=== PATIENT | female | born 1940 | race Caucasian/White ===

== ENCOUNTER 2016-12-01 01:10 | Emergency (ER) | payer MEDICARE, OTHER ==
[~2016-12-01] VITALS: Ht 165.1 cm; Wt 54.4 kg
[~2016-12-01 01:10] MED LIST: METOPROLOL TART25 MG ORAL; RESTORIL30 MG ORAL; UNOBMED
[2016-12-01 01:30] VITALS: BP 130/87
[2016-12-01 02:40] VITALS: BP 35/81
[2016-12-01 02:45] VITALS: BP 131/77
--- NOTE | 2016-12-01 03:31 | Emergency Room Report ---
History of Present Illness General Chief Complaint: Malfunctioning Gastric Tube Source: Patient, Family Member Present Illness HPI 76-year-old female presents to ED for evaluation. Family members at bedside and states that patient's G-tube is not achieving. Noticed that tonight when she started a G-tube feeding it would not flush. However patient showing no signs of distress. No fevers or chills. No pain. No nausea or vomiting. Patient has dementia and is unable to provide any additional history at this time. No aggravating relieving factors. Denies any other associated symptoms Allergies: Coded Allergies: No Known Allergies (Verified , 08/14/06) Patient History Past Medical History: HTN, CVA/TIA Past Surgical History: none Pertinent Family History: none Social History: Denies: alcohol use, drug use, smoking Now: No Immunizations: UTD Reviewed Nursing Documentation: PMH: Agreed, PSxH: Agreed Nursing Documentation-PMH Hx Cardiac Problems: Yes Hx Hypertension: Yes Hx Diabetes: Yes Hx Cancer: Yes - breast Hx Gastrointestinal Problems: Yes Hx Neurological Problems: Yes - Parkinsons Hx Cerebrovascular Accident: Yes - left side paralysis Hx Parkinson's Disease: Yes Hx Seizures: Yes Review of Systems All Other Systems: negative except mentioned in HPI Physical Exam Vital Signs Date Time Temp Pulse Resp B/P Pulse Ox O2 Delivery O2 Flow Rate FiO2 12/01/ 01:20 97.5 73 16 130/87 95 Room Air Sp02 EP Interpretation: reviewed, normal General Appearance: no apparent distress, alert, GCS 15, non-toxic Head: normocephalic Eyes: bilateral eye PERRL, bilateral eye normal inspection ENT: normal ENT inspection Neck: normal inspection Respiratory: normal inspection Cardiovascular #1: normal inspection Gastrointestinal: normal bowel sounds, non tender, soft, non-distended, no guarding, no rebound, other - Gtube site C/D/I Rectal: deferred Genitourinary: no CVA tenderness Musculoskeletal: normal inspection Neurologic: other - dementia Psychiatric: other - dementia Skin: normal inspection Lymphatic: normal inspection Procedures Additional Procedure Procedure Narrative G-tube placement Patient placed on stretcher. Old G-tube is removed by deflating the balloon using syringe. G-tube site is inspected with no contraindications to G-tube placement. G-tube slowly inserted until resistance is met; G-tube balloon is slowly filled with 20 mL of normal saline and slowly retracted back until resistance is met. G-tube placement is confirmed with KUB study using Gastrografin Medical Decision Making Diagnostic Impression: Primary Impression: Malfunction of gastrostomy tube ER Course Hospital Course 76-year-old female presents to ED for G-tube placement. unable to flush at home Clinical course Patient placed on stretcher. After initial history and physical I replaced G- tube and inflate the balloon. G-tube placement confirmed with KUB study. Patient remained stable without any signs of distress. family at bedside and will take patient home Diagnosis - malfunction of G tube stable and discharged back to facility. Followup with PMD. Return to ED if symptoms recur or worsen Other X-Ray Diagnostic Results Other X-Ray Diagnostic Results : X-Ray Ordered: KUB EP Interpretation: Yes Findings: no fractures, no dislocation, no soft tissue swelling, other - gtube in place. no extravasation Number of Views: 1 Last Vital Signs Date Time Temp Pulse Resp B/P Pulse Ox O2 Delivery O2 Flow Rate FiO2 12/01/16 02:45 97.5 77 16 131/77 95 Room Air Status: improved Disposition: HOME, SELF-CARE Condition: Stable Referrals: NON PHYSICIAN (PCP) Patient Instructions: Gastrostomy Tube Home Guide, Adult GABRIELLE HALLMAN M.D. Dec 01, 2016 03:31
--- NOTE | 2016-12-01 13:28 | Diagnostic Imaging Report ---
Indication: Tube placement Comparison: None Single view of the abdomen obtained Gastrostomy balloon is in the body of the stomach. There is contrast in the fundus. No definite leak identified. IVC filter incidentally noted. Impression: Gastrostomy in good position. No leak identified.
== END 2016-12-01 02:46 | disposition home or self-care (01) ==
LOC: EMR 01:40
DX: K94.23 Gastrostomy malfunction (principal); Y83.3 Surgical operation with formation of external stoma as the cause of abnormal reaction of the patient, or of later complication, without mention of misadventure at the time of the procedure; Y92.9 Unspecified place or not applicable; I10 Essential (primary) hypertension; E11.9 Type 2 diabetes mellitus without complications; G20 Parkinson's disease; I69.354 Hemiplegia and hemiparesis following cerebral infarction affecting left non-dominant side
CPT/HCPCS: 43760; 74000

== ENCOUNTER 2017-03-08 22:33 | Inpatient (IN) | payer MEDICARE, OTHER ==
[~2017-03-08] VITALS: Ht 167.6 cm; Wt 63.8 kg
[2017-03-08] MEDS ORDERED: Acetaminophen 650 MG SUPP RECTAL ONE ×2 (22:39→22:41)
[2017-03-08 22:40] VITALS: BP 167/59
--- NOTE | 2017-03-08 22:42 | Emergency Room Report ---
History of Present Illness General Chief Complaint: Fever Source: Family Member Present Illness HPI Is a 77-year-old female with multiple medical problem. She has a previous stroke and his bedbound. She has previous tracheostomy and now has a feeding tube. Brought in by family member with him and secondary to fever and congestion. Onset for last day. Fever is high. No nausea no vomiting. Coughing is nonproductive in nature. No diarrhea. Allergies: Coded Allergies: No Known Allergies (Verified , 08/14/06) Patient History Past Medical History: see triage record, old chart reviewed Past Surgical History: other Pertinent Family History: none Social History: Denies: smoking Last Menstrual Period: n/a Now: No Immunizations: other Reviewed Nursing Documentation: PMH: Agreed, PSxH: Agreed Nursing Documentation-PMH Hx Cardiac Problems: Yes Hx Hypertension: Yes Hx Diabetes: Yes Hx Cancer: Yes - breast Hx Neurological Problems: Yes - Parkinsons Hx Cerebrovascular Accident: Yes Hx Parkinson's Disease: Yes Hx Seizures: Yes Review of Systems Constitutional: Reports: fever Eye: Denies: blurred vision, eye pain ENT: Denies: ear pain, nose congestion, throat swelling Respiratory: Reports: cough, shortness of breath Cardiovascular: Denies: chest pain, palpitations Gastrointestinal: Denies: abdominal pain, diarrhea, nausea, vomiting Musculoskeletal: Denies: back pain, joint pain Skin: Denies: rash Neurological: Denies: headache, numbness Endocrine: Denies: increased thirst, increased urine Hematologic/Lymphatic: Denies: easy bruising All Other Systems: negative except mentioned in HPI Physical Exam Vital Signs Date Time Temp Pulse Resp B/P Pulse Ox O2 Delivery O2 Flow Rate FiO2 03/08/17 22:23 102.0 87 16 139/72 94 vitals with fever Sp02 EP Interpretation: reviewed, normal General Appearance: mild distress, lethargic, Chronically Ill Head: normocephalic, atraumatic Eyes: bilateral eye EOMI, bilateral eye PERRL ENT: hearing grossly normal, normal pharynx Neck: no meningismus, other - Contracted Respiratory: chest non-tender, accessory muscle use, crackles, rhonchi Cardiovascular #1: regular rate, rhythm, no murmur Gastrointestinal: normal bowel sounds, non tender, no mass, no organomegaly, no bruit, non-distended Musculoskeletal: back normal, other - Contracted Skin: warm/dry Medical Decision Making Diagnostic Impression: Primary Impression: Sepsis Qualified Codes: A41.9 - Sepsis, unspecified organism Additional Impressions: Aspiration pneumonia Qualified Codes: J69.0 - Pneumonitis due to inhalation of food and vomit Prerenal azotemia Proteinuria Qualified Codes: R80.9 - Proteinuria, unspecified ER Course Patient presents with fever and congestion. She has a pneumonia in the right lower lobe. Is concerned for aspiration. Wide spectrum antibiotic started. Stable. No evidence of ACS, PE, dissection to name a few. Her family asked that patient be admitted to Dr. Renner because he has taken care of her at [facility]. Dr. Toro, who is covering, agreed with the admission. Lab Results Impression labs unremarkable EKG Diagnostic Results Rate: normal Rhythm: NSR ST Segments: other - Baseline tremors Rhythm Strip Diag. Results EP Interpretation: yes Rate: 100 Rhythm: NSR, no PVC's, no ectopy Chest X-Ray Diagnostic Results EP Interpretation: Yes Findings: no effusion, no pneumothorax, other - rll interstitial infiltrate Number of Views: 1 Last Vital Signs Date Time Temp Pulse Resp B/P Pulse Ox O2 Delivery O2 Flow Rate FiO2 03/08/17 22:23 102.0 87 16 139/72 94 Status: improved Disposition: ADMITTED INPATIENT Condition: Serious CARLOS NEAL M.D. March 08, 2017 22:42
[2017-03-08] MEDS ORDERED: NS 1000ml 1,600 ML IVLG ONE (22:45)
[2017-03-08] MEDS ORDERED: Albuterol ud Inhalation HHN ONE (22:45)
[2017-03-08] MEDS ORDERED: Acetaminophen 500mg (ES) tab ORAL ONE (22:45)
[2017-03-08 22:50] LABS: BASOPHILS % (AUTO) 0.6 % (0.0-2.0); EOSINOPHILS % (AUTO) 0.3 % (0.0-3.0); LYMPHOCYTES % (AUTO) 13.5 % (20.0-45.0); MEAN CORPUSCULAR HEMOGLOBIN 32.5 PG (27.0-31.0); MEAN CORPUSCULAR HGB CONC 35.4 G/DL (32.0-36.0); MEAN CORPUSCULAR VOLUME 92 FL (80-99); MEAN PLATELET VOLUME 7.5 FL (6.5-10.1); MONOCYTES % (AUTO) 7.9 % (1.0-10.0); NEUTROPHILS % (AUTO) 77.6 % (45.0-75.0); PLATELET COUNT 127 K/UL (150-450); RED BLOOD COUNT 4.06 M/UL (4.20-5.40); RED CELL DISTRIBUTION WIDTH 12.9 % (11.6-14.8)
[2017-03-08 23:05] LABS: ALANINE AMINOTRANSFERASE 13 U/L (3-33); ALBUMIN/GLOBULIN RATIO 0.9 (1.0-2.7); ANION GAP 16 (5-15); ASPARTATE AMINO TRANSFERASE 22 U/L (5-40); CALCIUM 9.7 mg/dL (8.6-10.2); CARBON DIOXIDE 28 mEQ/L (20-30); CHLORIDE 93 mEQ/L (98-107); CREATININE 1.1 mg/dL (0.5-0.9); HEMOLYSIS 48; SODIUM 137 mEQ/L (135-145); TOTAL PROTEIN 7.9 g/dL (6.6-8.7); TROPONIN I < 0.30 ng/mL (<=0.30)
[2017-03-08 23:35] LABS: APPEARANCE,URINE CLEAR; KETONES,URINE 1+ (NEGATIVE); LEUKOCYTE ESTERASE ,URINE 1+ (NEGATIVE); NITRITE,URINE NEGATIVE (NEGATIVE); PH,URINE 6.5 (4.5-8.0); PROTEIN,URINE 1+ (NEGATIVE); UROBILINOGEN,URINE NORMAL MG/DL (0.0-1.0)
[2017-03-08 23:44] LABS: SQUAMOUS EPITHELIAL CELL,UR FEW /LPF (NONE/OCC)
[2017-03-09] VITALS (11 sets, daily range): BP systolic 84–154; BP diastolic 42–71
[2017-03-09] MEDS ORDERED: Zosyn 4.5gm inj ONE (00:11)
[2017-03-09] MEDS ORDERED: Piperacillin/Tazobactam 4.5 GM in NS 110 ML IVPB ONE (00:15)
[2017-03-09] MEDS ORDERED: Albuterol ud Inhalation HHN ONE (00:15)
[2017-03-09] MEDS ORDERED: JANUVIA25 MG GT (00:40)
[2017-03-09] MEDS ORDERED: TEMAZEPAM30 MG GT (04:28)
[2017-03-09] MEDS ORDERED: NEXIUM40 MG GT (04:28)
[2017-03-09] MEDS ORDERED: Metoprolol Tartrate GT (04:28)
[2017-03-09] MEDS ORDERED: ALBUTEROL2.5 MG/3 M INH (04:28)
[2017-03-09] MEDS ORDERED: Miralax 17gm pkt ORAL PRN (07:30)
[2017-03-09] MEDS ORDERED: Milk of Magnesia 30ml Ud ORAL PRN (07:30)
[2017-03-09] MEDS ORDERED: Milk of Magnesia 30ml Ud GT PRN (07:48)
[2017-03-09] MEDS ORDERED: Miralax 17gm pkt GT PRN (07:48)
[2017-03-09] MEDS ORDERED: Acetaminophen 650mg/20.3ml ORAL PRN (07:49)
[2017-03-09] MEDS ORDERED: Acetaminophen 650mg/20.3ml GT PRN ×2 (07:49→11:49)
[2017-03-09] MEDS: metroNIDAZOLE 500mg 100 ML IVPB SCH ×3 (09:29→22:25)
[2017-03-09] MEDS: Metoprolol Tartrate 12.5mg TAB GT SCH ×2 (09:31→20:59)
[2017-03-09] MEDS: Docusate 100mg/10ml Liq GT SCH ×2 (09:31→20:58)
[2017-03-09] MEDS: Heparin 5000 units/ml inj SUBQ SCH ×2 (09:31→20:59)
[2017-03-09] MEDS: sitaGLIPtin 25mg tab GT SCH (09:44)
--- NOTE | 2017-03-09 10:21 | Diagnostic Imaging Report ---
Indication: Dyspnea Comparison: 01/26/16 A single view chest radiograph was obtained. Findings: Interstitial and vascular prominence noted. Mild cardiomegaly is present. Bones are osteopenic. Impression: Possible mild interstitial edema. Please correlate clinically
[2017-03-09] MEDS: DuoNeb 0.5-3(2.5)mg/3ml neb INH PRN (11:25)
[2017-03-09] MEDS: NovoLOG Insulin Flexpen SUBQ SCH ×4 (12:31→23:31)
[2017-03-09] MEDS ORDERED: Tubing IV Secondary IV ONE (13:27)
--- NOTE | 2017-03-09 16:08 | History & Physical ---
History and Physical History & Physicial Dictated for Int Med-Dr Toro no. [id number]. SURI CLINTON March 09, 2017 16:08
--- NOTE | 2017-03-09 16:59 | Consultation ---
History of Present Illness General Date patient seen: March 09, 2017 Chief Complaint: Fever Referring physician: Dr. Toro Reason for Consultation: dyspnea Present Illness HPI 77-year-old female with multiple medical history of stroke, tracheostomy and feeding tube brought in by family member with CC of fever and congestion for last day. No nausea no vomiting. Coughing is nonproductive in nature. No diarrhea. Pt can't give any history and all information is obtained form the chart. Allergies: Coded Allergies: No Known Allergies (Verified , 08/14/06) Medication History Scheduled Albuterol Sulfate* (Albuterol Sulfate Hhn*), 3 ML INH DAILY, (Reported) Esomeprazole Magnesium (Nexium), 40 MG GT DAILY, (Reported) Sitagliptin* (Januvia*), 25 MG GT DAILY, (Reported) [Metoprolol Tartrate*], 12.5 MG GT DAILY, (Reported) Scheduled PRN Temazepam* (Temazepam*), 30 MG GT BEDTIME PRN for Insomnia, (Reported) Discontinued Medications Metoprolol Tartrate* (Metoprolol Tartrate*), Unknown Dose ORAL EVERY 12 HOURS, ( Reported) Discontinued Reason: Prescription changed Unable to Obtain Medications (Unable To Obtain Meds), (Reported) Discontinued Reason: Therapy completed Patient History Healthcare decision maker Emily Blank Resuscitation status Full Code Advanced Directive on File Yes Past Medical/Surgical History Past Medical/Surgical History: (1) Hemiparesis affecting left side as late effect of cerebrovascular accident (2) Feeding by G-tube (3) Diabetes (4) Cerebral vascular disease (5) Metastatic malignant neoplasm to breast Review of Systems All Other Systems: negative except mentioned in HPI Physical Exam General Appearance: cachetic Lines, tubes and drains: peripheral HEENT: normocephalic, atraumatic Neck: non-tender, normal alignment Respiratory/Chest: chest wall non-tender, rhonchi - left, rhonchi - right Cardiovascular/Chest: normal peripheral pulses, normal rate Abdomen: normal bowel sounds Genitourinary/Rectal: normal genital exam, heme negative stool Extremities: normal range of motion, non-tender Skin Exam: normal pigmentation 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 Last 24 Hour Vital Signs Date Time Temp Pulse Resp B/P Pulse Ox O2 Delivery O2 Flow Rate FiO2 03/09/17 16:14 80 18 112/54 95 Nasal Cannula 2.0 03/09/17 15:58 98.4 75 18 84/48 94 Nasal Cannula 2.0 03/09/17 12:00 78 03/09/17 12:00 97.9 81 20 97/42 95 Nasal Cannula 2.0 03/09/17 11:29 95 22 Nasal Cannula 2.0 28 03/09/17 11:20 88 22 95 Nasal Cannula 2.0 28 03/09/17 09:57 Nasal Cannula 2.0 28 03/09/17 09:56 95 Nasal Cannula 2.0 28 03/09/17 09:54 88 22 Nasal Cannula 2.0 28 03/09/17 09:31 90 100/43 03/09/17 08:00 83 03/09/17 08:00 98.6 90 20 100/43 95 Nasal Cannula 2.0 03/09/17 04:00 100.3 56 20 122/66 99 Nasal Cannula 3.0 03/09/17 04:00 102 03/09/17 03:20 100 03/09/17 03:05 101.8 101 27 113/49 100 Nasal Cannula 2.0 03/09/17 03:00 100.0 78 20 110/49 99 Nasal Cannula 3.0 03/09/17 02:45 101.8 101 27 113/49 100 Nasal Cannula 2.0 03/09/17 01:00 101.6 108 19 109/55 99 Nasal Cannula 4.0 03/09/17 00:18 36 03/09/17 00:17 95 22 95 Nasal Cannula 4.0 36 03/09/17 00:00 115 22 134/65 100 Nasal Cannula 2.0 03/08/17 22:57 28 03/08/17 22:54 112 26 Nasal Cannula 2.0 28 03/08/17 22:54 112 26 100 Nasal Cannula 2.0 28 03/08/17 22:44 103.2 03/08/17 22:40 103.2 132 34 167/59 99 Nasal Cannula 2.0 03/08/17 22:23 102.0 87 16 139/72 94 Intake and Output 03/08/17 03/09/17 19:00 07:00 Intake Total 1850 ml Output Total 1200 ml Balance 650 ml Intake IV Total 1850 ml Output Urine Total 1200 ml Laboratory Tests Test 03/08/17 22:30 03/08/17 23:10 White Blood Count 10.0 K/UL (4.8-10.8) Red Blood Count 4.06 M/UL (4.20-5.40) L Hemoglobin 13.2 G/DL (12.0-16.0) Hematocrit 37.2 % (37.0-47.0) Mean Corpuscular Volume 92 FL (80-99) Mean Corpuscular Hemoglobin 32.5 PG (27.0-31.0) H Mean Corpuscular Hemoglobin Concent 35.4 G/DL (32.0-36.0) Red Cell Distribution Width 12.9 % (11.6-14.8) Platelet Count 127 K/UL (150-450) L Mean Platelet Volume 7.5 FL (6.5-10.1) Neutrophils (%) (Auto) 77.6 % (45.0-75.0) H Lymphocytes (%) (Auto) 13.5 % (20.0-45.0) L Monocytes (%) (Auto) 7.9 % (1.0-10.0) Eosinophils (%) (Auto) 0.3 % (0.0-3.0) Basophils (%) (Auto) 0.6 % (0.0-2.0) Sodium Level 137 mEQ/L (135-145) Potassium Level 5.0 mEQ/L (3.4-4.9) H Chloride Level 93 mEQ/L (98-107) L Carbon Dioxide Level 28 mEQ/L (20-30) Anion Gap 16 (5-15) H Blood Urea Nitrogen 39 mg/dL (7-23) H Creatinine 1.1 mg/dL (0.5-0.9) H Estimat Glomerular Filtration Rate mL/min (>60) Glucose Level 132 mg/dL (74-106) H Lactic Acid Level 0.80 mmol/L (0.66-2.22) Calcium Level 9.7 mg/dL (8.6-10.2) Total Bilirubin 0.4 mg/dL (0.0-1.2) Aspartate Amino Transf (AST/SGOT) 22 U/L (5-40) Alanine Aminotransferase (ALT/SGPT) 13 U/L (3-33) Alkaline Phosphatase 82 U/L (35-104) Total Creatine Kinase 83 U/L (26-140) Creatine Kinase MB 2.0 ng/mL (< 3.8) Creatine Kinase MB Relative Index 2.4 Troponin I < 0.30 ng/mL (<=0.30) Total Protein 7.9 g/dL (6.6-8.7) Albumin 3.9 g/dL (3.5-5.2) Globulin 4.0 g/dL Albumin/Globulin Ratio 0.9 (1.0-2.7) L Urine Color Yellow Urine Appearance Clear Urine pH 6.5 (4.5-8.0) Urine Specific [place] 1.010 (1.005-1.035) Urine Protein 1+ (NEGATIVE) H Urine Glucose (UA) Negative (NEGATIVE) Urine Ketones 1+ (NEGATIVE) H Urine Occult Blood 3+ (NEGATIVE) H Urine Nitrite Negative (NEGATIVE) Urine Bilirubin Negative (NEGATIVE) Urine Urobilinogen Normal MG/DL (0.0-1.0) Urine Leukocyte Esterase 1+ (NEGATIVE) H Urine RBC 5-10 /HPF (0 - 2) H Urine WBC 2-4 /HPF (0 - 2) Urine Squamous Epithelial Cells Few /LPF (NONE/OCC) Urine Bacteria None /HPF (NONE) Height (Feet): 5 Height (Inches): 6.00 Weight (Pounds): 124 Medications Current Medications Medications (Trade) Dose Ordered Sig/Christopher Route PRN Reason Start Time Stop Time Status Last Admin Dose Admin Acetaminophen (Tylenol) 650 mg Q4H PRN GT fever 03/09/17 07:49 04/08/17 07:29 Acetaminophen (Tylenol) 650 mg Q4H PRN GT Mild Pain (Pain Scale 1-3) 03/09/17 11:49 04/08/17 07:29 Albuterol/ Ipratropium (DuoNeb 0.5-3(2.5)mg/3ml) 3 ml Q4H PRN INH Shortness of Breath 03/09/17 07:30 03/14/17 07:29 03/09/17 11:25 Bisacodyl (Dulcolax) 10 mg DAILYPRN PRN RECTAL Constipation 03/09/17 07:30 04/08/17 07:29 Dextrose (Dextrose 50%) STAT PRN IV Hypoglycemia 03/09/17 07:30 04/08/17 07:29 Docusate Sodium (Colace) 100 mg EVERY 12 HOURS GT 5/29/17 09:00 04/08/17 08:59 03/09/17 09:31 Heparin Sodium (Porcine) (Heparin 5000 units/ml) 5,000 units EVERY 12 HOURS SUBQ 03/09/17 09:00 04/08/17 08:59 Insulin Aspart BEFORE MEALS AND HS SUBQ 03/09/17 11:30 04/08/17 11:29 03/09/17 12:31 Lansoprazole (Prevacid) 30 mg DAILY GT 03/09/17 09:00 04/08/17 08:59 03/09/17 09:44 Levofloxacin 150 ml @ 100 mls/hr Q48H IVPB 03/11/17 01:00 03/18/17 00:59 Magnesium Hydroxide (Mom) 30 ml HSPRN PRN GT Constipation 03/09/17 07:48 04/08/17 07:29 Metoprolol Tartrate (Lopressor) 12.5 mg Q12HR GT 03/09/17 09:00 04/08/17 08:59 03/09/17 09:31 Metronidazole (Flagyl) 100 ml @ 100 mls/hr Q8HR IVPB 03/09/17 09:00 03/16/17 08:59 03/09/17 13:57 Ondansetron HCl (Zofran) 4 mg Q6H PRN IVP Nausea & Vomiting 03/09/17 07:30 04/08/17 07:29 Polyethylene Glycol (Miralax) 17 gm DAILYPRN PRN GT Constipation 03/09/17 07:48 04/08/17 07:29 Sitagliptin Phosphate (Januvia) 25 mg DAILY GT 03/09/17 09:00 04/08/17 08:59 03/09/17 09:44 Sodium Chloride (Sodium Chloride 1000ml bag) 1,000 ml @ 75 mls/hr [id number] IVLG 03/09/17 08:00 04/08/17 07:59 03/09/17 08:35 Assessment/Plan Problem List: (1) Sepsis ICD Codes: A41.9 - Sepsis SNOMED: 36129891 Qualifiers: Qualified Codes: A41.9 - Sepsis, unspecified organism (2) Diabetes ICD Codes: E11.9 - Diabetes SNOMED: 47019889 (3) Cerebral vascular disease ICD Codes: I67.9 - Cerebral vascular disease SNOMED: 86436783 (4) Feeding by G-tube ICD Codes: Z93.1 - Feeding by G-tube SNOMED: 914390510 (5) Hemiparesis affecting left side as late effect of cerebrovascular accident ICD Codes: I69.854 - Hemiparesis affecting left side as late effect of cerebrovascular accident SNOMED: 260615688 Assessment/Plan respiratory treatment IV abx check sputum sliding scale gutbe feeding dvt prophylaxis MARIANELA HARRY March 09, 2017 16:59
[2017-03-09] MEDS ORDERED: Promethazine/Codeine 5ml UD ORAL PRN (17:00)
[2017-03-09] MEDS ORDERED: NS 275ml ONE (17:15)
[2017-03-09] MEDS ORDERED: NS 550ML IV ONE (17:15)
--- NOTE | 2017-03-09 17:47 | Wound Care Consultation ---
Wound Assessment Wound Assessment #1: Wound Present on Admission: Yes New Wound: No Status Change of Wound: No Wound Location Body Site Modif: mid Wound Location Body Site: sacral Wound Type: pressure ulcer Abdoulaye Test: Does not Abdoulaye Pressure Ulcer Stage: IV/unstageable Wound Thickness: Full Thickness Wound Length: 0.5 Wound Width: 0.5 Wound Depth: utd Percent of Wound Blackey/Red: 100 Wound Drainage Description: Serosanguineous Wound Drainage Amount: Moderate Wound Drainage Odor: None/Absent Tissue Surrounding Wound: full thickness scar tissue pressure ulcer Wound General Appearance: Reddened, Draining Wound Assessment #2: Wound Number: #2 Wound Present on Admission: Yes New Wound: No Status Change of Wound: No Wound Location Body Site Modif: left, lateral Wound Location Body Site: metatarsal head - 1st Wound Type: pressure ulcer Abdoulaye Test: Does not Abdoulaye Pressure Ulcer Stage: deep tissue injury Wound Thickness: Full Thickness Wound Length: 2.0 Wound Width: 2.0 Wound Depth: utd Percent of Wound Purple/Maroon: 100 Wound Drainage Amount: None Wound Drainage Odor: None/Absent Tissue Surrounding Wound: Intact Wound General Appearance: Reddened - purple Wound Assessment #3: Wound Number: #3 Wound Present on Admission: Yes New Wound: No Status Change of Wound: No Wound Location Body Site Modif: right, anterior Wound Location Body Site: toe - 2nd,3rd and 4th Wound Type: scab Abdoulaye Test: Does not Abdoulaye Pressure Ulcer Stage: deep tissue injury Wound Thickness: Full Thickness Wound Length: 0.5 Wound Width: 0.5 Wound Depth: utd Percent of Wound Purple/Maroon: 100 Wound Drainage Amount: None Wound Drainage Odor: None/Absent Tissue Surrounding Wound: Intact Wound General Appearance: Asymptomatic, Reddened - purplish Wound Assessment #4: Wound Number: #4 Wound Present on Admission: Yes New Wound: No Status Change of Wound: No Wound Location Body Site Modif: right Wound Location Body Site: breast fold Wound Type: discoloration Abdoulaye Test: Does not Abdoulaye Percent of Wound Blackey/Red: 100 Wound Drainage Amount: None Wound Drainage Odor: None/Absent Tissue Surrounding Wound: Intact Wound General Appearance: Reddened Wound Assessment #5: Wound Number: #5 Wound Present on Admission: Yes New Wound: No Status Change of Wound: No Wound Location Body Site Modif: left Wound Location Body Site: trochanter Wound Type: pressure ulcer Abdoulaye Test: Does not Abdoulaye Wound Thickness: Full Thickness - scar tissue Wound Length: 4.0 Wound Width: 3.0 Percent of Wound Blackey/Red: 100 Wound Drainage Amount: None Wound Drainage Odor: None/Absent Tissue Surrounding Wound: Intact Wound General Appearance: Asymptomatic Wound Assessment #6: Wound Number: #6 Wound Present on Admission: Yes New Wound: No Status Change of Wound: No Wound Location Body Site Modif: right Wound Location Body Site: trochanter Wound Type: pressure ulcer Abdoulaye Test: Does not Abdoulaye Wound Thickness: Full Thickness - scar tissue Wound Length: 3.0 Wound Width: 2.5 Percent of Wound Blackey/Red: 100 Wound Drainage Amount: None Wound Drainage Odor: None/Absent Tissue Surrounding Wound: Intact Wound General Appearance: Asymptomatic Wound Comment #1 Sacral stage IV/unstageable pressure ulcer. Surrounding skin with full thickness scar tissue pressure ulcer #2 Right 2nd, 3rd and 4th anterior toe with dry scabs. Asymptomatic pressure ulcers. #3 Left lateral 1st metatarsal head DTI pressure ulcer #4 Right breast fold redness. Etiology unknown #5 Left trochanter full thickness scar tissue pressure ulcer #6 Right trochanter full thickness scar tissue pressure ulcer #7 Right elbow discoloration/Bruise. Skin intact Recommendation -Sacral pressure ulcer Cleanse with saline, pat dry, apply Triad cream, cover with bordered gauze daily and PRN soiled/dislodged -Local wound care per protocol for DTI on left lateral 1st metatarsal head -Low air loss mattress -Optimize nutrition -Heel protector on both heels -Offload both heels -Keep clean and dry -Turn and reposition -Assess and f/u accordingly for any changes CORNELIO HUGO RN March 09, 2017 17:47
--- NOTE | 2017-03-09 20:15 | History and Physical Report ---
DATE OF ADMISSION: 03/09/2017 CHIEF COMPLAINT: The patient is a 77-year-old, [place]-speaking female who presents with complaint of fever and congestion. HISTORY OF PRESENT ILLNESS: The patient herself is unable to contribute much to the History and Physical. The patient is nonverbal. The patient was admitted to [facility] in January 2016. Please see History and Physical, and discharge summary dictated at that time. The patient apparently began to experience fever one day prior to admission. The patient was also noted to be congested. The patient has a history of previous cerebrovascular accident with left hemiparesis. The patient is currently bed bound. According to the niece, the patient was transported to [place] emergency room to rule out pneumonia. The patient presents with a chief complaint of fever and congestion. REVIEW OF SYSTEMS: Unable to assess secondary to the patient's mental condition. PAST MEDICAL HISTORY: Significant for, 1. Hypertension. 2. Diabetes type 2. 3. Cerebrovascular disease, status post cerebrovascular accident about 20 years ago. 4. Left hemiparesis. PAST SURGICAL HISTORY: Significant for, 1. PEG placement in 2004. 2. History of tracheostomy secondary to respiratory failure in 2014 with reversal. CURRENT MEDICATIONS: 1. Albuterol nebulized q.4 h. p.r.n. 2. Nexium 40 mg per G-tube daily. 3. Januvia 25 mg per G-tube daily. 4. Temazepam 30 mg p.o. at bedtime. 5. Metoprolol 12.5 mg one tablet per G-tube daily. ALLERGIES: No known drug allergies. SOCIAL HISTORY: The patient lives at home with her niece. The patient denies tobacco or alcohol use. PHYSICAL EXAMINATION: VITAL SIGNS: Temperature 97.9, respirations 20, pulse 78, and blood pressure 97/42. GENERAL: The patient is thin appearing, elderly female, in no apparent distress. HEENT: Eyes, pupils are equal and responsive to light and accommodation. Extraocular movements are intact. NECK: Supple without lymphadenopathy. CHEST: Few crackles in bilateral bases with few wheezes bilaterally, otherwise, without wheezes or rales. CARDIOVASCULAR: Regular rhythm and rate. S1 and S2. No murmurs, rubs, or gallops. ABDOMEN: Soft, nontender, and nondistended. Positive bowel sounds. No evidence of hepatosplenomegaly currently. No rebound or guarding noted. EXTREMITIES: Negative for clubbing, cyanosis, or edema. RECTAL/GENITAL: Refused. NEUROLOGICALLY: The patient is weak on the left side with motor strength 2/5 on the left and 3/5 on the right. LABORATORY AND DIAGNOSTIC DATA: WBC 10.0, hemoglobin 13.2, hematocrit 37.2, and platelets 127,000. Sodium 137, potassium elevated at 5.0, chloride 93, CO2 28, BUN 39, creatinine 1.1, and glucose 132. Chest x-ray was reported as mild interstitial edema, otherwise, no consolidations noted. ASSESSMENT: This is a 77-year-old white female, 1. Hypotension. 2. Fever. 3. Congestion. 4. Hypertension. 5. Diabetes type 2. 6. Cerebrovascular disease. 7. Left hemiparesis. TREATMENT: 1. Hypotension. This is probably secondary to sepsis. The patient is currently receiving intravenous fluids. Blood pressure is now returned to normal. 2. Fevers/congestion. Pulmonary consultation has been obtained with Dr. Barbara Sky. The patient has been started empirically on intravenous Levaquin. A repeat chest x-ray is pending. 3. Hypertension. The patient is currently hypotensive. The patient's antihypertensive medication has been held at this time. 4. Diabetes type 2. Continue Januvia as above. 5. Cerebrovascular disease. 6. Left hemiparesis. 7. Dysphagia. The patient is currently receiving tube feeds. Dimitrios Daly M.D. DR: ALICIA JOB#: [id number] CC:
[2017-03-10] VITALS: BP 146/67
[2017-03-10] MEDS: DuoNeb 0.5-3(2.5)mg/3ml neb INH PRN ×6 (00:09→23:44)
[2017-03-10 04:00] VITALS: BP 154/69
[2017-03-10] MEDS: metroNIDAZOLE 500mg 100 ML IVPB SCH ×3 (05:44→21:31)
[2017-03-10] MEDS: NovoLOG Insulin Flexpen SUBQ SCH ×3 (05:46→17:46)
[2017-03-10 08:15] LABS: BASOPHILS % (AUTO) 0.5 % (0.0-2.0); LYMPHOCYTES % (AUTO) 23.7 % (20.0-45.0); MEAN CORPUSCULAR HEMOGLOBIN 30.2 PG (27.0-31.0); MEAN CORPUSCULAR HGB CONC 33.1 G/DL (32.0-36.0); MEAN CORPUSCULAR VOLUME 91 FL (80-99); MEAN PLATELET VOLUME 7.4 FL (6.5-10.1); NEUTROPHILS % (AUTO) 63.8 % (45.0-75.0); PLATELET COUNT 112 K/UL (150-450); RED BLOOD COUNT 3.67 M/UL (4.20-5.40); RED CELL DISTRIBUTION WIDTH 13.3 % (11.6-14.8); WHITE BLOOD COUNT 8.4 K/UL (4.8-10.8)
[2017-03-10 08:23] VITALS: BP 100/54
[2017-03-10 08:33] LABS: ALANINE AMINOTRANSFERASE 15 U/L (3-33); ALBUMIN/GLOBULIN RATIO 1.2 (1.0-2.7); ANION GAP 11 (5-15); ASPARTATE AMINO TRANSFERASE 32 U/L (5-40); CALCIUM 8.3 mg/dL (8.6-10.2); CARBON DIOXIDE 26 mEQ/L (20-30); CHLORIDE 108 mEQ/L (98-107); HEMOLYSIS 3; MAGNESIUM 2.1 mg/dL (1.7-2.5); PHOSPHORUS 1.9 mg/dL (2.5-4.8); POTASSIUM 3.9 mEQ/L (3.4-4.9); SODIUM 145 mEQ/L (135-145); TOTAL PROTEIN 5.8 g/dL (6.6-8.7)
[2017-03-10] MEDS: Heparin 5000 units/ml inj SUBQ SCH (09:00)
[2017-03-10] MEDS: sitaGLIPtin 25mg tab GT SCH (09:36)
[2017-03-10] MEDS: Docusate 100mg/10ml Liq GT SCH ×2 (09:36→20:20)
[2017-03-10] MEDS: Metoprolol Tartrate 12.5mg TAB GT SCH ×2 (09:36→20:20)
[2017-03-10] MEDS ORDERED: Heparin 5000 units/ml inj SUBQ SCH ×2 (12:00→21:00)
[2017-03-10 12:01] VITALS: BP 95/50
--- NOTE | 2017-03-10 12:20 | Consultation ---
Consult Note Consult Note ID Dic # [id number] YULI LAWRENCE M.D. March 10, 2017 12:20
--- NOTE | 2017-03-10 12:55 | Pulmonology Progress Note ---
Assessment/Plan Problems: (1) Sepsis (2) Diabetes (3) Cerebral vascular disease (4) Feeding by G-tube (5) Hemiparesis affecting left side as late effect of cerebrovascular accident Assessment/Plan check cultures sputum pending hemodynamically stable continue antibiotics dvt prophylaxis tolerating diet. Subjective ROS Limited/Unobtainable: No Constitutional: Reports: no symptoms HEENT: Repors: no symptoms Allergies: Coded Allergies: No Known Allergies (Verified , 08/14/06) Objective Last 24 Hour Vital Signs Date Time Temp Pulse Resp B/P Pulse Ox O2 Delivery O2 Flow Rate FiO2 03/10/17 12:01 97.9 79 28 95/50 96 Nasal Cannula 3.0 03/10/17 11:31 102 22 Nasal Cannula 3.0 32 03/10/17 11:15 98 22 97 Nasal Cannula 3.0 03/10/17 09:36 92 100/54 03/10/17 08:23 98.2 92 26 100/54 93 Nasal Cannula 3.0 03/10/17 07:47 105 22 98 Nasal Cannula 3.0 32 03/10/17 07:38 Nasal Cannula 3.0 03/10/17 07:30 97 Nasal Cannula 3.0 03/10/17 07:30 90 20 97 Nasal Cannula 3.0 03/10/17 07:29 88 20 Nasal Cannula 3.0 32 03/10/17 04:00 99.5 106 24 154/69 94 Nasal Cannula 03/10/17 04:00 103 03/10/17 00:10 106 24 92 Nasal Cannula 3.0 32 03/10/17 00:09 104 24 88 Nasal Cannula 2.0 28 03/10/17 00:00 104 03/10/17 00:00 99.0 105 22 146/67 91 Room Air 03/09/17 20:59 95 154/71 03/09/17 20:00 91 03/09/17 20:00 100.0 95 22 154/71 96 Room Air 03/09/17 19:30 90 20 Nasal Cannula 3.0 32 03/09/17 19:30 95 Nasal Cannula 2.0 28 03/09/17 19:30 Nasal Cannula 2.0 28 03/09/17 16:14 80 18 112/54 95 Nasal Cannula 2.0 03/09/17 16:00 81 03/09/17 15:58 98.4 75 18 84/48 94 Nasal Cannula 2.0 Intake and Output 03/09/17 03/10/17 19:00 07:00 Intake Total 475 ml 1365 ml Output Total 225 ml 400 ml Balance 250 ml 965 ml Intake IV Total 475 ml 825 ml Tube Feeding 540 ml Output Urine Total 225 ml 400 ml # Bowel Movements 2 General Appearance: WD/WN HEENT: normocephalic, atraumatic Respiratory/Chest: chest wall non-tender, lungs clear Cardiovascular: normal peripheral pulses, normal rate Abdomen: normal bowel sounds, soft, non tender Genitourinary: normal external genitalia Skin: no rash Neurologic/Psychiatric: medical affairs leader II-XII grossly normal Lymphatic: no neck adenopathy Microbiology Date/Time Source Procedure Growth Status 03/08/17 22:30 Blood Blood Culture - Preliminary NO GROWTH AFTER 24 HOURS Resulted 03/08/17 22:25 Blood Blood Culture - Preliminary NO GROWTH AFTER 24 HOURS Resulted 03/10/17 00:30 Wound Gram Stain - Final Resulted 03/10/17 00:30 Wound Wound Culture Pending Resulted 03/10/17 00:30 Sputum Gram Stain - Final Resulted 03/10/17 00:30 Sputum Sputum Culture Pending Resulted 03/08/17 22:40 Rectum VRE Culture - Final NO VANCOMYCIN RESISTANT ENTEROCOCCUS ... Complete Laboratory Tests 03/09/17 18:00: Carcinoembryonic Antigen 9.4H 03/10/17 07:45: White Blood Count 8.4, Red Blood Count 3.67L, Hemoglobin 11.1L, Hematocrit 33.4L , Mean Corpuscular Volume 91, Mean Corpuscular Hemoglobin 30.2, Mean Corpuscular Hemoglobin Concent 33.1, Red Cell Distribution Width 13.3, Platelet Count 112L, Mean Platelet Volume 7.4, Neutrophils (%) (Auto) 63.8, Lymphocytes ( %) (Auto) 23.7, Monocytes (%) (Auto) 12.0H, Eosinophils (%) (Auto) 0.0, Basophils (%) (Auto) 0.5, Sodium Level 145, Potassium Level 3.9, Chloride Level 108H, Carbon Dioxide Level 26, Anion Gap 11, Blood Urea Nitrogen 28H, Creatinine 1.0H, Estimat Glomerular Filtration Rate , Glucose Level 182H, Calcium Level 8.3L, Phosphorus Level 1.9L, Magnesium Level 2.1, Total Bilirubin 0.3, Aspartate Amino Transf (AST/SGOT) 32, Alanine Aminotransferase (ALT/SGPT) 15, Alkaline Phosphatase 62, Pro-B-Type Natriuretic Peptide 6318H, Total Protein 5.8L, Albumin 3.2L, Globulin 2.6, Albumin/Globulin Ratio 1.2 Current Medications Medications (Trade) Dose Ordered Sig/Christopher Route PRN Reason Start Time Stop Time Status Last Admin Dose Admin Acetaminophen (Tylenol) 650 mg Q4H PRN GT fever 03/09/17 07:49 04/08/17 07:29 Acetaminophen (Tylenol) 650 mg Q4H PRN GT Mild Pain (Pain Scale 1-3) 03/09/17 11:49 04/08/17 07:29 Albuterol/ Ipratropium (DuoNeb 0.5-3(2.5)mg/3ml) 3 ml Q4H PRN INH Shortness of Breath 03/09/17 07:30 03/14/17 07:29 03/10/17 11:22 Bisacodyl (Dulcolax) 10 mg DAILYPRN PRN RECTAL Constipation 03/09/17 07:30 04/08/17 07:29 Dextrose (Dextrose 50%) STAT PRN IV Hypoglycemia 03/09/17 07:30 04/08/17 07:29 Docusate Sodium (Colace) 100 mg EVERY 12 HOURS GT 03/09/17 09:00 04/08/17 08:59 03/10/17 09:36 Heparin Sodium (Porcine) (Heparin 5000 units/ml) 5,000 units EVERY 12 HOURS SUBQ 03/10/17 12:00 04/09/17 11:59 Insulin Aspart (NovoLOG) EVERY 6 HOURS SUBQ 03/10/17 00:00 04/09/17 00:00 03/10/17 12:05 Lansoprazole (Prevacid) 30 mg DAILY GT 03/09/17 09:00 04/08/17 08:59 03/10/17 09:36 Levofloxacin 150 ml @ 100 mls/hr Q48H IVPB 03/11/17 01:00 03/18/17 00:59 Magnesium Hydroxide (Mom) 30 ml HSPRN PRN GT Constipation 03/09/17 07:48 04/08/17 07:29 Metoprolol Tartrate 12.5 mg 12.5 mg Q12HR GT 03/09/17 09:00 04/08/17 08:59 03/10/17 09:36 Metronidazole (Flagyl) 100 ml @ 100 mls/hr Q8HR IVPB 03/09/17 09:00 03/16/17 08:59 03/10/17 05:44 Ondansetron HCl (Zofran) 4 mg Q6H PRN IVP Nausea & Vomiting 03/09/17 07:30 04/08/17 07:29 Polyethylene Glycol (Miralax) 17 gm DAILYPRN PRN GT Constipation 03/09/17 07:48 04/08/17 07:29 Promethazine HCl/ Codeine (Phenergan with Codeine) 5 ml Q4H PRN ORAL For Cough 03/09/17 17:00 04/08/17 16:59 Sitagliptin Phosphate (Januvia) 25 mg DAILY GT 03/09/17 09:00 04/08/17 08:59 03/10/17 09:36 Sodium Chloride (Sodium Chloride 1000ml bag) 1,000 ml @ 75 mls/hr [id number] IVLG 03/09/17 08:00 04/08/17 07:59 03/10/17 11:50 MARAINELA HARRY March 10, 2017 12:55
[2017-03-10] MEDS ORDERED: Promethazine/Codeine 5ml UD ORAL PRN (15:19)
[2017-03-10] MEDS ORDERED: Miralax 17gm pkt GT PRN (15:19)
[2017-03-10 15:42] VITALS: BP 144/83
[2017-03-10] MEDS ORDERED: Acetaminophen 650mg/20.3ml GT PRN ×2 (16:00)
[2017-03-10] MEDS ORDERED: NS 275ml ONE (16:54)
--- NOTE | 2017-03-10 17:15 | Consultation ---
DATE OF CONSULTATION: INFECTIOUS DISEASE CONSULTATION CONSULTING PHYSICIAN: Pedro Luis Hou M.D. REQUESTING PHYSICIAN: Barbara Sky M.D. REASON FOR CONSULTATION: Evaluation of the patient for pneumonia, fever, and antibiotic management. HISTORY OF PRESENT ILLNESS: The patient is a 77-year-old female with multiple medical problems, as listed below, who was brought to this medical center for fever, cough, and chest congestion. The patient has been started on IV antibiotics. An Infectious Disease consultation has been requested for further evaluation of the patient and antibiotic management. PAST MEDICAL HISTORY: 1. CVA with left hemiparesis. 2. Hypertension. 3. Diabetes. 4. Status post PEG placement. 5. History of trach placement. MEDICATIONS: Levaquin and Flagyl. ALLERGIES: No known drug allergies. SOCIAL HISTORY: The patient lives in a fpc. FAMILY HISTORY: Not available. PHYSICAL EXAMINATION: VITAL SIGNS: Temperature 97.9 degrees, pulse 86, respiratory rate 18, blood pressure 95/50, and T-max 103 degrees. HEENT: Mild pale conjunctivae. No icterus. NECK: No lymphadenopathy. CHEST: Coarse breathing sounds. HEART: S1 and S2. ABDOMEN: Soft. PEG tube in place. EXTREMITIES: Contracted. No signs of cyanosis. NEUROLOGIC: Awake and nonverbal. LABORATORY DATA: WBC 8.4, hemoglobin 11, and platelets 112,000. UA, white blood cells of 2 to 4. BUN 28 and creatinine 1.0. ALT, AST, and alkaline phosphatase are unremarkable. Sputum culture pending. Wound culture is pending. Blood culture is pending. Chest x-ray, mild interstitial edema. ASSESSMENT: The patient is a 77-year-old female with multiple medical problems, who was brought to this medical center with mild interstitial edema and a bit fever, most likely source is pneumonia. The patient has been responding to the current antibiotic treatment that needs to be continued for seven days. PLAN: 1. We will continue the patient on Levaquin and Flagyl, day #11/18. 2. Monitor CBC. 3. Monitor BMP. 4. Monitor cultures (wound, blood, and on sputum). 5. Monitor chest x-ray. 6. Based on the patient's clinical course, laboratories, and cultures, we will do further recommendations. Thank you, Dr. Sky for allowing me to participate in the care of this patient. I will follow the patient with you during this hospitalization. Pedro Luis Hou M.D. DR: LUNA JOB#: [id number] CC:
--- NOTE | 2017-03-10 18:52 | Internal Med Progress Note ---
Subjective Date of Service: March 10, 2017 Physician Name ClintonDimitrios Attending Physician Tereso Toro MD Current Medications Medications (Trade) Dose Ordered Sig/Christopher Route PRN Reason Start Time Stop Time Status Last Admin Dose Admin Acetaminophen (Tylenol) 650 mg Q4H PRN GT Mild Pain (Pain Scale 1-3) 03/10/17 16:00 04/09/17 15:59 Acetaminophen (Tylenol) 650 mg Q4H PRN GT fever 03/10/17 16:00 04/09/17 15:59 Albuterol/ Ipratropium (DuoNeb 0.5-3(2.5)mg/3ml) 3 ml Q4H PRN INH Shortness of Breath 03/10/17 15:30 03/15/17 15:29 03/10/17 15:27 Bisacodyl (Dulcolax) 10 mg DAILYPRN PRN RECTAL Constipation 03/10/17 15:21 04/09/17 15:20 Dextrose (Dextrose 50%) STAT PRN IV Hypoglycemia 03/10/17 16:00 04/09/17 15:59 Docusate Sodium (Colace) 100 mg EVERY 12 HOURS GT 03/10/17 21:00 04/09/17 20:59 Insulin Aspart (NovoLOG) EVERY 6 HOURS SUBQ 03/10/17 18:00 04/09/17 17:59 03/10/17 17:46 Lansoprazole (Prevacid) 30 mg DAILY GT 03/11/17 09:00 04/10/17 08:59 Levofloxacin 150 ml @ 100 mls/hr Q48H IVPB 03/11/17 01:00 03/18/17 00:59 Magnesium Hydroxide (Mom) 30 ml HSPRN PRN GT Constipation 03/11/17 16:00 04/10/17 15:59 Metoprolol Tartrate (Lopressor) 12.5 mg Q12HR GT 03/10/17 21:00 04/09/17 20:59 Metronidazole 100 ml @ 100 mls/hr Q8HR IVPB 03/10/17 22:00 03/17/17 21:59 Ondansetron HCl (Zofran) 4 mg Q6H PRN IVP Nausea & Vomiting 03/10/17 15:19 04/09/17 15:18 Polyethylene Glycol (Miralax) 17 gm DAILYPRN PRN GT Constipation 03/10/17 15:19 04/09/17 15:18 Promethazine HCl/ Codeine (Phenergan with Codeine) 5 ml Q4H PRN ORAL For Cough 03/10/17 15:19 04/09/17 15:18 Sitagliptin Phosphate (Januvia) 25 mg DAILY GT 03/11/17 09:00 04/10/17 08:59 Sodium Chloride (Sodium Chloride 1000ml bag) 1,000 ml @ 75 mls/hr [id number] IVLG 03/10/17 16:00 04/09/17 15:59 Allergies: Coded Allergies: No Known Allergies (Verified , 08/14/06) ROS Limited/Unobtainable: Yes Subjective 77 YO F admitted with hypotension, fever and congestion. Objective Last Vital Signs Date Time Temp Pulse Resp B/P Pulse Ox O2 Delivery O2 Flow Rate FiO2 03/10/17 15:42 97.3 102 22 144/83 97 Nasal Cannula 2.0 03/10/17 15:38 32 General Appearance: mild distress, lethargic, thin EENT: normal ENT inspection Neck: non-tender, normal alignment, supple Cardiovascular: normal peripheral pulses, normal rate, regular rhythm, no gallop/murmur, no JVD Respiratory/Chest: no accessory muscle use, respiratory distress, crackles/ rales, rhonchi - bilaterally, expiratory wheezing Abdomen: normal bowel sounds, non tender, soft, no organomegaly, no mass Extremities: normal range of motion Skin: normal pigmentation, warm/dry Laboratory Tests Test 03/10/17 07:45 White Blood Count 8.4 K/UL (4.8-10.8) Red Blood Count 3.67 M/UL (4.20-5.40) L Hemoglobin 11.1 G/DL (12.0-16.0) L Hematocrit 33.4 % (37.0-47.0) L Mean Corpuscular Volume 91 FL (80-99) Mean Corpuscular Hemoglobin 30.2 PG (27.0-31.0) Mean Corpuscular Hemoglobin Concent 33.1 G/DL (32.0-36.0) Red Cell Distribution Width 13.3 % (11.6-14.8) Platelet Count 112 K/UL (150-450) L Mean Platelet Volume 7.4 FL (6.5-10.1) Neutrophils (%) (Auto) 63.8 % (45.0-75.0) Lymphocytes (%) (Auto) 23.7 % (20.0-45.0) Monocytes (%) (Auto) 12.0 % (1.0-10.0) H Eosinophils (%) (Auto) 0.0 % (0.0-3.0) Basophils (%) (Auto) 0.5 % (0.0-2.0) Sodium Level 145 mEQ/L (135-145) Potassium Level 3.9 mEQ/L (3.4-4.9) Chloride Level 108 mEQ/L (98-107) H Carbon Dioxide Level 26 mEQ/L (20-30) Anion Gap 11 (5-15) Blood Urea Nitrogen 28 mg/dL (7-23) H Creatinine 1.0 mg/dL (0.5-0.9) H Estimat Glomerular Filtration Rate mL/min (>60) Glucose Level 182 mg/dL (74-106) H Calcium Level 8.3 mg/dL (8.6-10.2) L Phosphorus Level 1.9 mg/dL (2.5-4.8) L Magnesium Level 2.1 mg/dL (1.7-2.5) Total Bilirubin 0.3 mg/dL (0.0-1.2) Aspartate Amino Transf (AST/SGOT) 32 U/L (5-40) Alanine Aminotransferase (ALT/SGPT) 15 U/L (3-33) Alkaline Phosphatase 62 U/L (35-104) Pro-B-Type Natriuretic Peptide 6318 pg/mL (0-450) H Total Protein 5.8 g/dL (6.6-8.7) L Albumin 3.2 g/dL (3.5-5.2) L Globulin 2.6 g/dL Albumin/Globulin Ratio 1.2 (1.0-2.7) Microbiology Date/Time Source Procedure Growth Status 03/08/17 22:30 Blood Blood Culture - Preliminary NO GROWTH AFTER 24 HOURS Resulted 03/08/17 22:25 Blood Blood Culture - Preliminary NO GROWTH AFTER 24 HOURS Resulted 03/10/17 00:30 Wound Gram Stain - Final Resulted 03/10/17 00:30 Wound Wound Culture Pending Resulted 03/10/17 00:30 Sputum Gram Stain - Final Resulted 03/10/17 00:30 Sputum Sputum Culture Pending Resulted 03/08/17 22:40 Rectum VRE Culture - Final NO VANCOMYCIN RESISTANT ENTEROCOCCUS ... Complete Intake and Output 03/09/17 03/10/17 19:00 07:00 Intake Total 475 ml 1365 ml Output Total 225 ml 400 ml Balance 250 ml 965 ml Intake IV Total 475 ml 825 ml Tube Feeding 540 ml Output Urine Total 225 ml 400 ml # Bowel Movements 2 Assessment/Plan Problem List: (1) Hypotension (2) Fever (3) HTN (hypertension) Assessment & Plan: Cont metoprolol (4) Diabetes mellitus type II, uncontrolled (5) CHF (congestive heart failure) Assessment & Plan: Await cardiology consult and echocardiogram. (6) Hemiparesis affecting left side as late effect of cerebrovascular accident (7) Sepsis Assessment & Plan: possible aspiration; cont flagyl and levaquim per ID and pulmonary (8) Cerebral vascular disease (9) Aspiration pneumonia Assessment & Plan: Cont levaquin and flagyl per ID and pulmonary (10) Pneumonia Status: not improved DIMITRIOS CLINTON March 10, 2017 18:52
[2017-03-10 19:50] VITALS: BP 124/59
[2017-03-11] VITALS (12 sets, daily range): BP systolic 77–161; BP diastolic 31–75
[2017-03-11] MEDS: NovoLOG Insulin Flexpen SUBQ SCH ×4 (00:35→18:18)
[2017-03-11] MEDS: metroNIDAZOLE 500mg 100 ML IVPB SCH ×3 (05:24→21:47)
[2017-03-11 06:24] LABS: MEAN CORPUSCULAR HEMOGLOBIN 30.6 PG (27.0-31.0); MEAN CORPUSCULAR HGB CONC 32.7 G/DL (32.0-36.0); MEAN CORPUSCULAR VOLUME 94 FL (80-99); MEAN PLATELET VOLUME 8.8 FL (6.5-10.1); PLATELET COUNT 91 K/UL (150-450); RED BLOOD COUNT 3.95 M/UL (4.20-5.40); RED CELL DISTRIBUTION WIDTH 13.6 % (11.6-14.8); WHITE BLOOD COUNT 9.3 K/UL (4.8-10.8)
[2017-03-11 07:36] LABS: ANION GAP 12 (5-15); CALCIUM 8.7 mg/dL (8.6-10.2); CARBON DIOXIDE 26 mEQ/L (20-30); CHLORIDE 109 mEQ/L (98-107); CREATININE 0.9 mg/dL (0.5-0.9); HEMOLYSIS 30; POTASSIUM 5.2 mEQ/L (3.4-4.9); SODIUM 147 mEQ/L (135-145)
[2017-03-11 07:41] LABS: TROPONIN I < 0.30 ng/mL (<=0.30)
[2017-03-11 08:32] LABS: BAND NEUTROPHILS % (MANUAL) 6 % (0-8); BASOPHILS % (MANUAL) 0 % (0-2); EOSINOPHILS % (MANUAL) 0 % (0-3); HYPOCHROMASIA 1+; LYMPHOCYTES % (MANUAL) 15 % (20-45); NEUTROPHILS % (MANUAL) 73 % (45-75); PLATELET ESTIMATE DECREASED; PLATELET MORPHOLOGY NORMAL; TOTAL CELLS COUNTED 100
[2017-03-11 08:33] LABS: POLYCHROMASIA RARE
[2017-03-11] MEDS ORDERED: sitaGLIPtin 25mg tab GT SCH (09:00)
[2017-03-11] MEDS: Docusate 100mg/10ml Liq GT SCH ×2 (09:04→20:41)
[2017-03-11] MEDS: Metoprolol Tartrate 12.5mg TAB GT SCH ×2 (09:04→20:42)
--- NOTE | 2017-03-11 11:02 | Cardiology Report ---
APPROVED REPORT EKG Measurement Heart [id number] Normal sinus rhythm Low voltage QRS Cannot rule out Anterior infarct, age undetermined Abnormal ECG
[2017-03-11] MEDS: DuoNeb 0.5-3(2.5)mg/3ml neb INH PRN ×2 (11:24→14:47)
--- NOTE | 2017-03-11 13:27 | Internal Med Progress Note ---
Subjective Date of Service: March 11, 2017 Physician Name Clinton,Suri Attending Physician Tereso Toro MD Current Medications Medications (Trade) Dose Ordered Sig/Christopher Route PRN Reason Start Time Stop Time Status Last Admin Dose Admin Acetaminophen (Tylenol) 650 mg Q4H PRN GT Mild Pain (Pain Scale 1-3) 03/10/17 16:00 04/09/17 15:59 Acetaminophen (Tylenol) 650 mg Q4H PRN GT fever 03/10/17 16:00 04/09/17 15:59 Albuterol/ Ipratropium (DuoNeb 0.5-3(2.5)mg/3ml) 3 ml Q4H PRN INH Shortness of Breath 03/10/17 15:30 03/15/17 15:29 03/11/17 11:24 Bisacodyl (Dulcolax) 10 mg DAILYPRN PRN RECTAL Constipation 03/10/17 15:21 04/09/17 15:20 Dextrose (Dextrose 50%) STAT PRN IV Hypoglycemia 03/10/17 16:00 04/09/17 15:59 Docusate Sodium (Colace) 100 mg EVERY 12 HOURS GT 03/10/17 21:00 04/09/17 20:59 03/11/17 09:04 Insulin Aspart (NovoLOG) EVERY 6 HOURS SUBQ 03/10/17 18:00 04/09/17 17:59 03/11/17 12:30 Lansoprazole (Prevacid) 30 mg DAILY GT 03/11/17 09:00 04/10/17 08:59 03/11/17 09:04 Levofloxacin 150 ml @ 100 mls/hr Q48H IVPB 03/11/17 01:00 03/18/17 00:59 03/11/17 00:31 Magnesium Hydroxide (Mom) 30 ml HSPRN PRN GT Constipation 03/11/17 16:00 04/10/17 15:59 Metoprolol Tartrate (Lopressor) 12.5 mg Q12HR GT 03/10/17 21:00 04/09/17 20:59 03/11/17 09:04 Metronidazole 100 ml @ 100 mls/hr Q8HR IVPB 03/10/17 22:00 03/17/17 21:59 03/11/17 13:01 Ondansetron HCl (Zofran) 4 mg Q6H PRN IVP Nausea & Vomiting 03/10/17 15:19 04/09/17 15:18 Polyethylene Glycol (Miralax) 17 gm DAILYPRN PRN GT Constipation 03/10/17 15:19 04/09/17 15:18 Promethazine HCl/ Codeine (Phenergan with Codeine) 5 ml Q4H PRN ORAL For Cough 03/10/17 15:19 04/09/17 15:18 Sitagliptin Phosphate (Januvia) 25 mg DAILY GT 03/11/17 09:00 04/10/17 08:59 03/11/17 11:00 Sodium Chloride (Sodium Chloride 1000ml bag) 1,000 ml @ 75 mls/hr [id number] IVLG 03/10/17 16:00 04/09/17 15:59 03/11/17 13:02 Allergies: Coded Allergies: No Known Allergies (Verified , 08/14/06) ROS Limited/Unobtainable: No Constitutional: Reports: no symptoms HEENT: Reports: no symptoms Cardiovascular: Reports: no symptoms Respiratory: Reports: no symptoms Gastrointestinal/Abdominal: Reports: no symptoms Genitourinary: Reports: no symptoms Neurologic/Psychiatric: Reports: no symptoms Subjective 77 YO F admitted with hypotension, fever and congestion. Cover for Int Med-Dr Toro. Labored respiration Objective Last Vital Signs Date Time Temp Pulse Resp B/P Pulse Ox O2 Delivery O2 Flow Rate FiO2 03/11/17 12:00 98.2 102 23 118/62 97 Simple Mask 3.0 03/11/17 11:34 45 Laboratory Tests Test 03/11/17 05:00 White Blood Count 9.3 K/UL (4.8-10.8) Red Blood Count 3.95 M/UL (4.20-5.40) L Hemoglobin 12.1 G/DL (12.0-16.0) Hematocrit 37.1 % (37.0-47.0) Mean Corpuscular Volume 94 FL (80-99) Mean Corpuscular Hemoglobin 30.6 PG (27.0-31.0) Mean Corpuscular Hemoglobin Concent 32.7 G/DL (32.0-36.0) Red Cell Distribution Width 13.6 % (11.6-14.8) Platelet Count 91 K/UL (150-450) L Mean Platelet Volume 8.8 FL (6.5-10.1) Neutrophils (%) (Auto) % (45.0-75.0) Lymphocytes (%) (Auto) % (20.0-45.0) Monocytes (%) (Auto) % (1.0-10.0) Eosinophils (%) (Auto) % (0.0-3.0) Basophils (%) (Auto) % (0.0-2.0) Differential Total Cells Counted 100 Neutrophils % (Manual) 73 % (45-75) Lymphocytes % (Manual) 15 % (20-45) L Monocytes % (Manual) 6 % (1-10) Eosinophils % (Manual) 0 % (0-3) Basophils % (Manual) 0 % (0-2) Band Neutrophils 6 % (0-8) Platelet Estimate Decreased L Platelet Morphology Normal Polychromasia Rare Hypochromasia 1+ Sodium Level 147 mEQ/L (135-145) H Potassium Level 5.2 mEQ/L (3.4-4.9) H Chloride Level 109 mEQ/L (98-107) H Carbon Dioxide Level 26 mEQ/L (20-30) Anion Gap 12 (5-15) Blood Urea Nitrogen 28 mg/dL (7-23) H Creatinine 0.9 mg/dL (0.5-0.9) Estimat Glomerular Filtration Rate mL/min (>60) Glucose Level 180 mg/dL (74-106) H Calcium Level 8.7 mg/dL (8.6-10.2) Troponin I < 0.30 ng/mL (<=0.30) Pro-B-Type Natriuretic Peptide 19658 pg/mL (0-450) H Microbiology Date/Time Source Procedure Growth Status 03/08/17 22:30 Blood Blood Culture - Preliminary NO GROWTH AFTER 48 HOURS Resulted 03/08/17 22:25 Blood Blood Culture - Preliminary NO GROWTH AFTER 48 HOURS Resulted 03/10/17 00:30 Wound Gram Stain - Final Resulted 03/10/17 00:30 Wound Culture - Preliminary Gram Negative Bacillus 1 Gram Positive Cocci Resulted 03/10/17 00:30 Sputum Gram Stain - Final Resulted 03/10/17 00:30 Sputum Sputum Culture - Preliminary Resulted 03/08/17 22:40 Nasal Nares MRSA Culture - Final Staphylococcus Aureus - Mrsa Complete 03/08/17 22:40 Rectum VRE Culture - Final NO VANCOMYCIN RESISTANT ENTEROCOCCUS ... Complete Intake and Output 03/10/17 03/11/17 19:00 07:00 Intake Total 1035 ml 1117.5 ml Output Total 300 ml Balance 735 ml 1117.5 ml Intake Free Water 30 ml 80 ml IV Total 825 ml 587.5 ml Tube Feeding 180 ml 450 ml Output Urine Total 300 ml # Bowel Movements 1 Objective General Appearance: mild distress, lethargic, thin EENT: normal ENT inspection Neck: non-tender, normal alignment, supple Cardiovascular: normal peripheral pulses, normal rate, regular rhythm, no gallop/murmur, no JVD Respiratory/Chest: labored, accessory muscle use, respiratory distress, crackles/rales, rhonchi - bilaterally, expiratory wheezing Abdomen: normal bowel sounds, non tender, soft, no organomegaly, no mass Extremities: normal range of motion Skin: normal pigmentation, warm/dry Assessment/Plan Problem List: (1) Hypotension (2) Fever (3) HTN (hypertension) Assessment & Plan: Cont metoprolol (4) Diabetes mellitus type II, uncontrolled (5) CHF (congestive heart failure) Assessment & Plan: Await cardiology consult. (6) Hemiparesis affecting left side as late effect of cerebrovascular accident (7) Sepsis Assessment & Plan: possible aspiration; cont flagyl and levaquim per ID and pulmonary (8) Cerebral vascular disease (9) Aspiration pneumonia Assessment & Plan: Cont levaquin and flagyl per ID and pulmonary (10) Pneumonia Status: deteriorating Assessment/Plan Prognosis is poor SURI CLINTON March 11, 2017 13:27
[2017-03-11 14:51] LABS: ABG ALLEN TEST POSITIVE; ABG BASE EXCESS -1.6; ABG PCO2 86.3 mmHg (35.0-45.0)
[2017-03-11] MEDS ORDERED: Milk of Magnesia 30ml Ud GT PRN ×2 (16:00)
--- NOTE | 2017-03-11 16:00 | Diagnostic Imaging Report ---
Indication: SOB Technique: One view of the chest Comparison: 03/02/17 Findings: Interim development of a large right pleural effusion. There is also interval development of a smaller moderate size left-sided pleural effusion. There is reticular parenchymal disease on the right now present. The heart border is obscured, probably enlarged. Impression: Large right, smaller left pleural effusions, developing over 3 days. Diffuse right lung mostly interstitial parenchymal infiltrates versus edema, markedly increased since prior study
[2017-03-11] MEDS ORDERED: Promethazine/Codeine 5ml UD ORAL PRN (16:30)
[2017-03-11] MEDS ORDERED: Acetaminophen 650mg/20.3ml GT PRN (16:30)
[2017-03-11] MEDS ORDERED: DuoNeb 0.5-3(2.5)mg/3ml neb INH PRN (16:30)
--- NOTE | 2017-03-11 16:36 | Cardiology Report ---
APPROVED REPORT EXAM: Two-dimensional and M-mode echocardiogram with Doppler and color Doppler. INDICATION Congestive Heart Failure M-Mode DIMENSIONS IVSd0.9 (0.7-1.1cm)Left Atrium (MM)3.2 (1.6-4.0cm) LVDd4.5 (3.5-5.6cm)Aortic Root2.7 (2.0-3.7cm) PWd0.5 (0.7-1.1cm)Aortic Cusp Exc.1.5 (1.5-2.0cm) LVDs2.7 (2.5-4.0cm) PWs1.0 cm Technically difficult study due to poor acoustic windows and patient position. Study quality precludes accurate assessment of regional wall motion. Normal left ventricular chamber size, systolic function and wall motion. Left ventricular ejection fraction estimated to be 55 %. No evidence of ventricular hypertrophy. Anterior Echo-free space, may be due to pericardial fat or effusion. All other cardiac chamber sizes are within normal limits. Mild focal aortic valve sclerosis with adequate cusp excursion. Mildly thickened mitral valve leaflets with normal excursion. Mild mitral annulus and aortic root calcification. Normal pulmonic valve structure. Normal tricuspid valve structure. Subcostal views not obtained due to GI tube. A color flow and spectral Doppler study was performed and revealed: No aortic regurgitation. Trace mitral regurgitation. Mitral diastolic velocities suggest reduced left ventricular relaxation (Grade I). Mild tricuspid regurgitation. Tricuspid systolic velocities suggests peak right ventricular systolic pressure of 45 mmHg, consistent with moderate pulmonary hypertension. Pulmonic regurgitation present.
[2017-03-11 17:03] LABS: ABG BASE EXCESS -1.1; ABG PCO2 50.9 mmHg (35.0-45.0)
--- NOTE | 2017-03-11 17:03 | Pulmonolgy Critical Care Note ---
Critical Care - Asmt/Plan Problems: (1) Acute respiratory failure (2) Pneumonia (3) Sepsis (4) Hemiparesis affecting left side as late effect of cerebrovascular accident (5) Feeding by G-tube (6) Aspiration pneumonia Respiratory: monitor respiratory rate, adjust FIO2 Cardiac: continue to monitor HR/BP Renal: F/U I&O, keep IV fluid Infectious Disease: check cultures, continue antibiotics Gastrointestinal: continue feedings/current rate Endocrine: monitor blood sugar, continue sliding scale insulin Hematologic: monitor H/H, transfuse if hgb<8.5 Neurologic: PRN Ativan, keep patient comfortable Affect: PRN ativan Prophylaxis: Protonix, Heparin Notes Reviewed: human resources designate, cardio, renal Discussed with: nurses, consultants, case management assistant, family member - grand daughter at the bed site. Critical Care - Objective Last 24 Hour Vital Signs Date Time Temp Pulse Resp B/P Pulse Ox O2 Delivery O2 Flow Rate FiO2 03/11/17 16:00 50 03/11/17 15:45 98.5 102 25 125/58 96 Bi-pap 45 03/11/17 15:40 94 24 96 Facial 3.0 45 03/11/17 14:47 45 03/11/17 14:47 97 23 97 Nasal Cannula 3.0 32 03/11/17 14:47 100 23 95 Simple Mask 3.0 45 03/11/17 12:00 98.2 102 23 118/62 97 Simple Mask 3.0 03/11/17 11:34 89 20 99 Venturi Mask 10.0 45 03/11/17 11:24 89 21 94 Venturi Mask 10.0 45 03/11/17 09:04 102 130/70 03/11/17 08:08 98.2 102 21 130/70 96 Simple Mask 3.0 03/11/17 07:26 101 22 Venturi Mask 10.0 40 03/11/17 07:26 98 Venturi Mask 10.0 40 03/11/17 07:26 Venturi Mask 10.0 40 03/11/17 04:00 99.1 107 18 129/73 94 Simple Mask 3.0 03/11/17 00:00 99.5 106 18 161/75 93 Nasal Cannula 3.0 03/10/17 23:52 112 22 96 Venturi Mask 10.0 45 03/10/17 23:40 109 22 93 Nasal Cannula 3.0 32 03/10/17 20:20 96 124/59 03/10/17 19:50 98.1 96 20 124/59 91 Nasal Cannula 3.0 03/10/17 19:34 97 20 99 Nasal Cannula 3.0 32 03/10/17 19:26 98 Nasal Cannula 3.0 32 03/10/17 19:26 Nasal Cannula 3.0 32 03/10/17 19:26 91 20 Nasal Cannula 3.0 32 03/10/17 19:26 91 20 98 Nasal Cannula 3.0 32 Status: awake, sedated Condition: critical HEENT: atraumatic Neck: full ROM Heart: HR/BP stable Abdomen: soft, non-tender, feeding tube Micro: Microbiology Date/Time Source Procedure Growth Status 03/08/17 22:30 Blood Blood Culture - Preliminary NO GROWTH AFTER 48 HOURS Resulted 03/08/17 22:25 Blood Blood Culture - Preliminary NO GROWTH AFTER 48 HOURS Resulted 03/10/17 00:30 Wound Gram Stain - Final Resulted 03/10/17 00:30 Wound Culture - Preliminary Gram Negative Bacillus 1 Gram Positive Cocci Resulted 03/10/17 00:30 Sputum Gram Stain - Final Resulted 03/10/17 00:30 Sputum Sputum Culture - Preliminary Resulted 03/08/17 22:40 Nasal Nares MRSA Culture - Final Staphylococcus Aureus - Mrsa Complete 03/08/17 22:40 Rectum VRE Culture - Final NO VANCOMYCIN RESISTANT ENTEROCOCCUS ... Complete Accucheck: 216 Critical Care - Subjective ROS Limited/Unobtainable: Yes ICU Day: 1 Interval Events: transferred to ICU because of tachypnea FI02: 50 Vent Support Breath Rate: 14 Sputum Amount: Large Tube Feeding Amount: 45 I&O: Intake and Output 03/10/17 03/11/17 19:00 07:00 Intake Total 1035 ml 1162.5 ml Output Total 300 ml Balance 735 ml 1162.5 ml Intake Free Water 30 ml 80 ml IV Total 825 ml 587.5 ml Tube Feeding 180 ml 495 ml Output Urine Total 300 ml # Bowel Movements 1 MARIANELA HARRY March 11, 2017 17:03
[2017-03-11 17:04] LABS: ABG ALLEN TEST POSITIVE
--- NOTE | 2017-03-11 17:27 | Cardiac Electrophysiology PN ---
Subjective Subjective [id number] Objective Last 24 Hour Vital Signs Date Time Temp Pulse Resp B/P Pulse Ox O2 Delivery O2 Flow Rate FiO2 03/11/17 17:09 100 23 100 Facial 50 03/11/17 16:00 50 03/11/17 15:45 98.5 102 25 125/58 96 Bi-pap 45 03/11/17 15:40 94 24 96 Facial 3.0 45 03/11/17 14:47 45 03/11/17 14:47 97 23 97 Nasal Cannula 3.0 32 03/11/17 14:47 100 23 95 Simple Mask 3.0 45 03/11/17 12:00 98.2 102 23 118/62 97 Simple Mask 3.0 03/11/17 11:34 89 20 99 Venturi Mask 10.0 45 03/11/17 11:24 89 21 94 Venturi Mask 10.0 45 03/11/17 09:04 102 130/70 03/11/17 08:08 98.2 102 21 130/70 96 Simple Mask 3.0 03/11/17 07:26 101 22 Venturi Mask 10.0 40 03/11/17 07:26 98 Venturi Mask 10.0 40 03/11/17 07:26 Venturi Mask 10.0 40 03/11/17 04:00 99.1 107 18 129/73 94 Simple Mask 3.0 03/11/17 00:00 99.5 106 18 161/75 93 Nasal Cannula 3.0 03/10/17 23:52 112 22 96 Venturi Mask 10.0 45 03/10/17 23:40 109 22 93 Nasal Cannula 3.0 32 03/10/17 20:20 96 124/59 03/10/17 19:50 98.1 96 20 124/59 91 Nasal Cannula 3.0 03/10/17 19:34 97 20 99 Nasal Cannula 3.0 32 03/10/17 19:26 98 Nasal Cannula 3.0 32 03/10/17 19:26 Nasal Cannula 3.0 32 03/10/17 19:26 91 20 Nasal Cannula 3.0 32 03/10/17 19:26 91 20 98 Nasal Cannula 3.0 32 Intake and Output 03/10/17 03/11/17 19:00 07:00 Intake Total 1035 ml 1162.5 ml Output Total 300 ml Balance 735 ml 1162.5 ml Intake Free Water 30 ml 80 ml IV Total 825 ml 587.5 ml Tube Feeding 180 ml 495 ml Output Urine Total 300 ml # Bowel Movements 1 Laboratory Tests Test 03/11/17 05:00 03/11/17 14:45 03/11/17 16:50 03/11/17 17:00 White Blood Count 9.3 K/UL (4.8-10.8) Red Blood Count 3.95 M/UL (4.20-5.40) L Hemoglobin 12.1 G/DL (12.0-16.0) Hematocrit 37.1 % (37.0-47.0) Mean Corpuscular Volume 94 FL (80-99) Mean Corpuscular Hemoglobin 30.6 PG (27.0-31.0) Mean Corpuscular Hemoglobin Concent 32.7 G/DL (32.0-36.0) Red Cell Distribution Width 13.6 % (11.6-14.8) Platelet Count 91 K/UL (150-450) L Mean Platelet Volume 8.8 FL (6.5-10.1) Neutrophils (%) (Auto) % (45.0-75.0) Lymphocytes (%) (Auto) % (20.0-45.0) Monocytes (%) (Auto) % (1.0-10.0) Eosinophils (%) (Auto) % (0.0-3.0) Basophils (%) (Auto) % (0.0-2.0) Differential Total Cells Counted 100 Neutrophils % (Manual) 73 % (45-75) Lymphocytes % (Manual) 15 % (20-45) L Monocytes % (Manual) 6 % (1-10) Eosinophils % (Manual) 0 % (0-3) Basophils % (Manual) 0 % (0-2) Band Neutrophils 6 % (0-8) Platelet Estimate Decreased L Platelet Morphology Normal Polychromasia Rare Hypochromasia 1+ Sodium Level 147 mEQ/L (135-145) H Pending Potassium Level 5.2 mEQ/L (3.4-4.9) H Pending Chloride Level 109 mEQ/L (98-107) H Pending Carbon Dioxide Level 26 mEQ/L (20-30) Pending Anion Gap 12 (5-15) Blood Urea Nitrogen 28 mg/dL (7-23) H Pending Creatinine 0.9 mg/dL (0.5-0.9) Pending Estimat Glomerular Filtration Rate mL/min (>60) Pending Glucose Level 180 mg/dL (74-106) H Pending Calcium Level 8.7 mg/dL (8.6-10.2) Pending Troponin I < 0.30 ng/mL (<=0.30) Pro-B-Type Natriuretic Peptide 92816 pg/mL (0-450) H Arterial Blood pH 7.140 (7.350-7.450) 7.318 (7.350-7.450) Arterial Blood Partial Pressure CO2 86.3 mmHg (35.0-45.0) *H 50.9 mmHg (35.0-45.0) H Arterial Blood Partial Pressure O2 88.7 mmHg (75.0-100.0) 112.5 mmHg (75.0-100.0) H Arterial Blood HCO3 29.2 mmol/L (22.0-26.0) H 25.5 mmol/L (22.0-26.0) Arterial Blood Oxygen Saturation 97.0 % (92.0-98.0) 98.6 % (92.0-98.0) H Arterial Blood Base Excess -1.6 -1.1 Khadar Test Positive Positive Microbiology Date/Time Source Procedure Growth Status 03/08/17 22:30 Blood Blood Culture - Preliminary NO GROWTH AFTER 48 HOURS Resulted 03/08/17 22:25 Blood Blood Culture - Preliminary NO GROWTH AFTER 48 HOURS Resulted 03/10/17 00:30 Wound Gram Stain - Final Resulted 03/10/17 00:30 Wound Culture - Preliminary Gram Negative Bacillus 1 Gram Positive Cocci Resulted 03/10/17 00:30 Sputum Gram Stain - Final Resulted 03/10/17 00:30 Sputum Sputum Culture - Preliminary Resulted 03/08/17 22:40 Nasal Nares MRSA Culture - Final Staphylococcus Aureus - Mrsa Complete 03/08/17 22:40 Rectum VRE Culture - Final NO VANCOMYCIN RESISTANT ENTEROCOCCUS ... Complete JUNIOR CASTILLO March 11, 2017 17:27
[2017-03-11 17:38] LABS: ANION GAP 12 (5-15); CALCIUM 8.6 mg/dL (8.6-10.2); CARBON DIOXIDE 26 mEQ/L (20-30); CHLORIDE 108 mEQ/L (98-107); HEMOLYSIS 0; POTASSIUM 4.8 mEQ/L (3.4-4.9); SODIUM 146 mEQ/L (135-145)
--- NOTE | 2017-03-11 19:40 | Infectious Diseases Prog Note ---
Assessment/Plan Assessment/Plan : The patient is a 77-year-old female with Pneumonia Fever Resp distress CVA with left hemiparesis. HTN Diabetes SP PEG and trach placement PLAN: cont Levaquin and Flagyl, day # 3 /7 Monitor CBC Monitor BMP Monitor cultures (wound, blood, and on sputum). Monitor chest x-ray Subjective Allergies: Coded Allergies: No Known Allergies (Verified , 08/14/06) Subjective transferred to ICU due to SOB , on BiPAP Objective Vital Signs Last 24 Hour Vital Signs Date Time Temp Pulse Resp B/P Pulse Ox O2 Delivery O2 Flow Rate FiO2 03/11/17 19:00 96 24 97/40 100 Bi-pap 50 03/11/17 18:00 96 24 101/50 97 Bi-pap 50 03/11/17 17:09 100 23 100 Facial 50 03/11/17 17:00 98 23 110/54 98 Bi-pap 50 03/11/17 17:00 50 03/11/17 16:00 50 03/11/17 15:45 98.5 102 25 125/58 96 Bi-pap 45 03/11/17 15:40 94 24 96 Facial 3.0 45 03/11/17 14:47 45 03/11/17 14:47 97 23 97 Nasal Cannula 3.0 32 03/11/17 14:47 100 23 95 Simple Mask 3.0 45 03/11/17 12:00 98.2 102 23 118/62 97 Simple Mask 3.0 03/11/17 11:34 89 20 99 Venturi Mask 10.0 45 03/11/17 11:24 89 21 94 Venturi Mask 10.0 45 03/11/17 09:04 102 130/70 03/11/17 08:08 98.2 102 21 130/70 96 Simple Mask 3.0 03/11/17 07:26 101 22 Venturi Mask 10.0 40 03/11/17 07:26 98 Venturi Mask 10.0 40 03/11/17 07:26 Venturi Mask 10.0 40 03/11/17 04:00 99.1 107 18 129/73 94 Simple Mask 3.0 03/11/17 00:00 99.5 106 18 161/75 93 Nasal Cannula 3.0 03/10/17 23:52 112 22 96 Venturi Mask 10.0 45 03/10/17 23:40 109 22 93 Nasal Cannula 3.0 32 03/10/17 20:20 96 124/59 03/10/17 19:50 98.1 96 20 124/59 91 Nasal Cannula 3.0 Height (Feet): 5 Height (Inches): 6.00 Weight (Pounds): 124 HEENT: anicteric Respiratory/Chest: accessory muscle use Cardiovascular: regularly irregular Abdomen: no organomegaly Microbiology Date/Time Source Procedure Growth Status 03/08/17 22:30 Blood Blood Culture - Preliminary NO GROWTH AFTER 48 HOURS Resulted 03/08/17 22:25 Blood Blood Culture - Preliminary NO GROWTH AFTER 48 HOURS Resulted 03/10/17 00:30 Wound Gram Stain - Final Resulted 03/10/17 00:30 Wound Culture - Preliminary Gram Negative Bacillus 1 Gram Positive Cocci Resulted 03/10/17 00:30 Sputum Gram Stain - Final Resulted 03/10/17 00:30 Sputum Sputum Culture - Preliminary Resulted 03/08/17 22:40 Nasal Nares MRSA Culture - Final Staphylococcus Aureus - Mrsa Complete 03/08/17 22:40 Rectum VRE Culture - Final NO VANCOMYCIN RESISTANT ENTEROCOCCUS ... Complete Laboratory Tests Test 03/11/17 05:00 03/11/17 14:45 03/11/17 16:50 03/11/17 17:00 White Blood Count 9.3 K/UL (4.8-10.8) Red Blood Count 3.95 M/UL (4.20-5.40) L Hemoglobin 12.1 G/DL (12.0-16.0) Hematocrit 37.1 % (37.0-47.0) Mean Corpuscular Volume 94 FL (80-99) Mean Corpuscular Hemoglobin 30.6 PG (27.0-31.0) Mean Corpuscular Hemoglobin Concent 32.7 G/DL (32.0-36.0) Red Cell Distribution Width 13.6 % (11.6-14.8) Platelet Count 91 K/UL (150-450) L Mean Platelet Volume 8.8 FL (6.5-10.1) Neutrophils (%) (Auto) % (45.0-75.0) Lymphocytes (%) (Auto) % (20.0-45.0) Monocytes (%) (Auto) % (1.0-10.0) Eosinophils (%) (Auto) % (0.0-3.0) Basophils (%) (Auto) % (0.0-2.0) Differential Total Cells Counted 100 Neutrophils % (Manual) 73 % (45-75) Lymphocytes % (Manual) 15 % (20-45) L Monocytes % (Manual) 6 % (1-10) Eosinophils % (Manual) 0 % (0-3) Basophils % (Manual) 0 % (0-2) Band Neutrophils 6 % (0-8) Platelet Estimate Decreased L Platelet Morphology Normal Polychromasia Rare Hypochromasia 1+ Sodium Level 147 mEQ/L (135-145) H 146 mEQ/L (135-145) H Potassium Level 5.2 mEQ/L (3.4-4.9) H 4.8 mEQ/L (3.4-4.9) Chloride Level 109 mEQ/L (98-107) H 108 mEQ/L (98-107) H Carbon Dioxide Level 26 mEQ/L (20-30) 26 mEQ/L (20-30) Anion Gap 12 (5-15) 12 (5-15) Blood Urea Nitrogen 28 mg/dL (7-23) H 33 mg/dL (7-23) H Creatinine 0.9 mg/dL (0.5-0.9) 1.0 mg/dL (0.5-0.9) H Estimat Glomerular Filtration Rate mL/min (>60) mL/min (>60) Glucose Level 180 mg/dL (74-106) H 214 mg/dL (74-106) H Calcium Level 8.7 mg/dL (8.6-10.2) 8.6 mg/dL (8.6-10.2) Troponin I < 0.30 ng/mL (<=0.30) Pro-B-Type Natriuretic Peptide 42796 pg/mL (0-450) H Arterial Blood pH 7.140 (7.350-7.450) 7.318 (7.350-7.450) Arterial Blood Partial Pressure CO2 86.3 mmHg (35.0-45.0) *H 50.9 mmHg (35.0-45.0) H Arterial Blood Partial Pressure O2 88.7 mmHg (75.0-100.0) 112.5 mmHg (75.0-100.0) H Arterial Blood HCO3 29.2 mmol/L (22.0-26.0) H 25.5 mmol/L (22.0-26.0) Arterial Blood Oxygen Saturation 97.0 % (92.0-98.0) 98.6 % (92.0-98.0) H Arterial Blood Base Excess -1.6 -1.1 Khadar Test Positive Positive Current Medications Medications (Trade) Dose Ordered Sig/Christopher Route PRN Reason Start Time Stop Time Status Last Admin Dose Admin Acetaminophen (Tylenol) 650 mg Q4H PRN GT Mild Pain (Pain Scale 1-3) 03/11/17 16:30 04/10/17 16:29 Acetaminophen (Tylenol) 650 mg Q4H PRN GT fever 03/11/17 16:30 04/10/17 16:29 Albuterol/ Ipratropium (DuoNeb 0.5-3(2.5)mg/3ml) 3 ml Q4H PRN INH Shortness of Breath 03/11/17 16:30 03/16/17 16:29 Bisacodyl (Dulcolax) 10 mg DAILYPRN PRN RECTAL Constipation unrelieved by Khanh 03/12/17 15:30 04/11/17 15:29 Chlorhexidine Gluconate (Tatiana-Hex 2%) 1 applic DAILY TOPIC 03/12/17 09:00 04/11/17 08:59 Dextrose (Dextrose 50%) STAT PRN IV Hypoglycemia 03/12/17 16:00 04/11/17 15:59 Docusate Sodium (Colace) 100 mg EVERY 12 HOURS GT 03/11/17 21:00 04/10/17 20:59 Furosemide (Lasix) 40 mg EVERY 12 HOURS IV 03/11/17 21:00 04/10/17 20:59 Heparin Sodium/ Sodium Chloride (Heparin 2000 units/Ns 1000ml premix) 2,000 unit ONCE ONCE INJ 03/12/17 06:00 03/12/17 06:01 Insulin Aspart (NovoLOG) EVERY 6 HOURS SUBQ 03/11/17 18:00 04/10/17 17:59 03/11/17 18:18 Lansoprazole (Prevacid) 30 mg DAILY GT 03/12/17 09:00 04/11/17 08:59 Levofloxacin 150 ml @ 100 mls/hr Q48H IVPB 03/13/17 01:00 03/20/17 00:59 Lidocaine HCl (Xylocaine 1% 30ml) 30 ml ONCE ONCE INJ 03/12/17 06:00 03/12/17 06:01 Magnesium Hydroxide (Mom) 30 ml HSPRN PRN GT Constipation 03/11/17 16:00 04/10/17 15:59 Metoprolol Tartrate (Lopressor) 12.5 mg Q12HR GT 03/11/17 21:00 04/10/17 20:59 Metronidazole (Flagyl) 100 ml @ 100 mls/hr Q8HR IVPB 03/11/17 22:00 03/18/17 21:59 Ondansetron HCl (Zofran) 4 mg Q6H PRN IVP Nausea & Vomiting 03/11/17 16:30 04/10/17 16:29 Polyethylene Glycol (Miralax) 17 gm DAILYPRN PRN GT Constipation 03/12/17 16:30 04/11/17 16:29 Promethazine HCl/ Codeine (Phenergan with Codeine) 5 ml Q4H PRN ORAL For Cough 03/11/17 16:30 04/10/17 16:29 Sitagliptin Phosphate (Januvia) 25 mg DAILY GT 03/12/17 09:00 04/11/17 08:59 Sodium Bicarbonate (Sodium Bicarbonate 4%) 1 ml ONCE ONCE INJ 03/12/17 06:00 03/12/17 06:01 Sodium Chloride 1,000 ml @ 50 mls/hr Q20H IV 03/11/17 17:00 04/10/17 16:59 03/11/17 17:00 YULI LAWRENCE M.D. March 11, 2017 19:40
[2017-03-11] MEDS: Acetaminophen 650mg/20.3ml GT PRN (21:16)
[2017-03-12] VITALS (24 sets, daily range): BP systolic 77–114; BP diastolic 40–71
[2017-03-12] MEDS: NovoLOG Insulin Flexpen SUBQ SCH ×5 (00:19→23:30)
--- NOTE | 2017-03-12 03:15 | Consultation ---
DATE OF CONSULTATION: 03/11/2017 CARDIOLOGY CONSULTATION REQUESTING PHYSICIAN: Tereso Toro M.D. REASON FOR CONSULTATION: Congestive heart failure. HISTORY OF PRESENT ILLNESS: The patient is a 77-year-old [place] lady with a history of hypertension, diabetes, history of CVA about 20 years ago with left hemiplegia as well as a history of PEG placement in 2004. The patient also has a history of respiratory failure and underwent tracheostomy in 2014 that was since then subsequently reversed. The patient was admitted to [facility] for fever of one day prior to the admission. The patient also was found to be congested. The patient was admitted to nonmonitored bed, however, today her shortness of breath got worse and the patient was started on BiPAP and transferred to intensive care unit. At the time of my evaluation, the patient is nonverbal, is on BiPAP, and is unable to provide any information. REVIEW OF SYSTEMS: Cannot be obtained. PAST MEDICAL HISTORY: 1. Hypertension. 2. Diabetes. 3. History of CVA with 20 years ago with left hemiplegia. 4. Status post PEG placement in 2004. 5. History of tracheostomy in 2014 and subsequent reversal. MEDICATIONS: Per reconciliation. ALLERGIES: She has no known drug allergies. SOCIAL HISTORY: She lives at home . She does not smoke or drink alcohol. PHYSICAL EXAMINATION: VITAL SIGNS: Blood pressure is 124/58, pulse is 102, and respirations 25. NECK: Positive JVD. LUNGS: Decreased breath sounds with coarse rhonchi. She has a BiPAP on. CARDIOVASCULAR: She is tachycardic. S1-S2 with no gallop or murmur. Old tracheostomy site is closed. ABDOMEN: Soft and status post PEG. EXTREMITIES: She has 1+ pitting edema. LABORATORY AND DIAGNOSTIC DATA: White count 9.2, hemoglobin 12.1, hematocrit 37.1, and platelet count of 91,000. Sodium 147, potassium 5.2, BUN 28, creatinine 0.9, and glucose of 180. Her BNP initially was 6000, now it is 10,000. Troponin is negative. ASSESSMENT AND PLAN: 1. Congestive heart failure with BNP of more than 10,000. The patient also has increased congestion. I gave the patient 40 mg IV Lasix and continue to watch the patient on telemetry. This is a tricky situation since she has hypernatremia and azotemia suggestive of volume depletion, but clinically, she is volume overload. Her echocardiogram showed ejection fraction of 55% with no pericardial effusion. 2. Sinus tachycardia secondary to respiratory failure and sepsis. The patient is on IV Levaquin. 3. Hypertension. The patient is on low-dose Lopressor 12.5 mg per gastrostomy tube b.i.d. 4. BiPAP. 5. Diabetes, on Januvia. 6. Status post percutaneous endoscopic gastrostomy placement for dysphagia. 7. History of cerebrovascular accident with hemiplegia and aphasia. Thank you very much, Dr. Toro, for allowing me to participate in the care of this patient. Please do not hesitate to contact me for any questions regarding my evaluation. René Machado M.D. DR: BRANDIE JOB#: [id number] CC:
[2017-03-12 05:17] LABS: BASOPHILS % (AUTO) 0.5 % (0.0-2.0); EOSINOPHILS % (AUTO) 0.2 % (0.0-3.0); LYMPHOCYTES % (AUTO) 20.8 % (20.0-45.0); MEAN CORPUSCULAR HEMOGLOBIN 29.6 PG (27.0-31.0); MEAN CORPUSCULAR HGB CONC 31.8 G/DL (32.0-36.0); MEAN CORPUSCULAR VOLUME 93 FL (80-99); MEAN PLATELET VOLUME 8.2 FL (6.5-10.1); MONOCYTES % (AUTO) 12.2 % (1.0-10.0); NEUTROPHILS % (AUTO) 66.3 % (45.0-75.0); PLATELET COUNT 121 K/UL (150-450); RED BLOOD COUNT 3.55 M/UL (4.20-5.40); RED CELL DISTRIBUTION WIDTH 13.4 % (11.6-14.8); WHITE BLOOD COUNT 6.6 K/UL (4.8-10.8)
[2017-03-12 05:32] LABS: MAGNESIUM 2.3 mg/dL (1.7-2.5); PHOSPHORUS 1.6 mg/dL (2.5-4.8)
[2017-03-12 05:34] LABS: TROPONIN I < 0.30 ng/mL (<=0.30)
[2017-03-12 05:39] LABS: ALANINE AMINOTRANSFERASE 14 U/L (3-33); ALBUMIN/GLOBULIN RATIO 0.8 (1.0-2.7); ANION GAP 13 (5-15); ASPARTATE AMINO TRANSFERASE 25 U/L (5-40); CALCIUM 8.7 mg/dL (8.6-10.2); CARBON DIOXIDE 26 mEQ/L (20-30); CHLORIDE 109 mEQ/L (98-107); CREATININE 1.3 mg/dL (0.5-0.9); HEMOLYSIS 4; POTASSIUM 4.4 mEQ/L (3.4-4.9); SODIUM 148 mEQ/L (135-145); TOTAL PROTEIN 6.2 g/dL (6.6-8.7)
[2017-03-12] MEDS: metroNIDAZOLE 500mg 100 ML IVPB SCH ×3 (05:40→22:04)
[2017-03-12] MEDS ORDERED: Sodium Bicarbonate 4% 2.4meq/5ml vial INJ ONE (06:00)
[2017-03-12] MEDS ORDERED: Heparin 2000 units/Ns 1000ml INJ ONE (06:00)
[2017-03-12] MEDS ORDERED: Lidocaine 1% Plain 30 ml INJ ONE (06:00)
[2017-03-12 08:29] LABS: ABG ALLEN TEST POSITIVE; ABG BASE EXCESS 1.8; ABG PCO2 46.5 mmHg (35.0-45.0)
[2017-03-12] MEDS ORDERED: Dyna-Hex 2% Top Sol 8oz TOPIC SCH ×2 (09:00)
[2017-03-12] MEDS ORDERED: Sodium Phosphate 10 MM in NS 275 ML IVPB ONE (09:00)
[2017-03-12] MEDS ORDERED: sitaGLIPtin 25mg tab GT SCH (09:00)
[2017-03-12] MEDS: Metoprolol Tartrate 12.5mg TAB GT SCH (09:00)
[2017-03-12] MEDS: Docusate 100mg/10ml Liq GT SCH ×2 (09:05→20:53)
--- NOTE | 2017-03-12 10:37 | Infectious Diseases Prog Note ---
Assessment/Plan Assessment/Plan : The patient is a 77-year-old female with Pneumonia , probable resp distress : most likely CHF but underling Pna is a consideration Cxray : Large right, smaller left pleural effusions 03/11 Fever, SP Wnd cx : VRE and GNR ( Colonizer ) CHF Echo : 50% Resp distress CVA with left hemiparesis. HTN Diabetes SP PEG and trach placement PLAN: cont Levaquin and Flagyl, day # 4 /7 Monitor CBC Monitor BMP Monitor cultures ( Blood, and on sputum). Monitor chest x-ray Subjective Allergies: Coded Allergies: No Known Allergies (Verified , 08/14/06) Subjective on BiPAP Objective Vital Signs Last 24 Hour Vital Signs Date Time Temp Pulse Resp B/P Pulse Ox O2 Delivery O2 Flow Rate FiO2 03/12/17 09:00 80 95/45 03/12/17 08:42 91 15 98 Facial 50 03/12/17 08:00 50 03/12/17 08:00 95 03/12/17 08:00 99.1 96 20 99/45 97 Bi-pap 50 03/12/17 07:21 90 15 96 Facial 50 03/12/17 07:00 81 14 93/47 100 Bi-pap 50 03/12/17 06:00 79 14 90/46 100 Bi-pap 50 03/12/17 05:00 82 15 90/54 100 Bi-pap 50 03/12/17 04:42 108 23 98 Facial 50 03/12/17 04:00 85 03/12/17 04:00 99.0 90 19 83/42 100 Bi-pap 50 03/12/17 04:00 50 03/12/17 03:30 90 24 100 Facial 50 03/12/17 03:00 99 25 107/70 100 Bi-pap 50 03/12/17 02:00 88 15 83/48 100 Bi-pap 50 03/12/17 01:30 100 23 100 Facial 50 03/12/17 01:00 98 20 97/57 100 Bi-pap 50 03/12/17 00:00 50 03/12/17 00:00 81 03/12/17 00:00 98.9 87 17 86/40 100 Bi-pap 50 03/11/17 23:07 100 23 100 Facial 50 03/11/17 23:00 96 15 77/36 100 Bi-pap 50 03/11/17 22:00 96 18 94/31 100 Bi-pap 50 03/11/17 21:46 98.7 03/11/17 21:30 100 23 100 Facial 50 03/11/17 21:00 96 18 86/46 100 Bi-pap 50 03/11/17 20:42 99 88/38 03/11/17 20:00 91 03/11/17 20:00 98.7 99 17 88/38 100 Bi-pap 50 03/11/17 19:30 97 19 100 Facial 50 03/11/17 19:30 Bi-pap 03/11/17 19:00 96 24 97/40 100 Bi-pap 50 03/11/17 18:00 96 24 101/50 97 Bi-pap 50 03/11/17 17:09 100 23 100 Facial 50 03/11/17 17:00 98 23 110/54 98 Bi-pap 50 03/11/17 17:00 50 03/11/17 16:00 50 03/11/17 15:45 98.5 102 25 125/58 96 Bi-pap 45 03/11/17 15:40 94 24 96 Facial 3.0 45 03/11/17 14:47 45 03/11/17 14:47 97 23 97 Nasal Cannula 3.0 32 03/11/17 14:47 100 23 95 Simple Mask 3.0 45 03/11/17 12:00 98.2 102 23 118/62 97 Simple Mask 3.0 03/11/17 11:34 89 20 99 Venturi Mask 10.0 45 03/11/17 11:24 89 21 94 Venturi Mask 10.0 45 Height (Feet): 5 Height (Inches): 6.00 Weight (Pounds): 137 HEENT: anicteric Respiratory/Chest: accessory muscle use Cardiovascular: tachycardia Abdomen: no mass Microbiology Date/Time Source Procedure Growth Status 03/10/17 00:30 Wound Gram Stain - Final Resulted 03/10/17 00:30 Wound Culture - Preliminary Proteus Mirabilis Enterococcus Faecalis - Vre Resulted 03/10/17 00:30 Sputum Gram Stain - Final Resulted 03/10/17 00:30 Sputum Sputum Culture - Preliminary Resulted Laboratory Tests Test 03/11/17 14:45 03/11/17 16:50 03/11/17 17:00 03/12/17 05:00 Arterial Blood pH 7.140 (7.350-7.450) 7.318 (7.350-7.450) Arterial Blood Partial Pressure CO2 86.3 mmHg (35.0-45.0) *H 50.9 mmHg (35.0-45.0) H Arterial Blood Partial Pressure O2 88.7 mmHg (75.0-100.0) 112.5 mmHg (75.0-100.0) H Arterial Blood HCO3 29.2 mmol/L (22.0-26.0) H 25.5 mmol/L (22.0-26.0) Arterial Blood Oxygen Saturation 97.0 % (92.0-98.0) 98.6 % (92.0-98.0) H Arterial Blood Base Excess -1.6 -1.1 Khadar Test Positive Positive Sodium Level 146 mEQ/L (135-145) H 148 mEQ/L (135-145) H Potassium Level 4.8 mEQ/L (3.4-4.9) 4.4 mEQ/L (3.4-4.9) Chloride Level 108 mEQ/L (98-107) H 109 mEQ/L (98-107) H Carbon Dioxide Level 26 mEQ/L (20-30) 26 mEQ/L (20-30) Anion Gap 12 (5-15) 13 (5-15) Blood Urea Nitrogen 33 mg/dL (7-23) H 39 mg/dL (7-23) H Creatinine 1.0 mg/dL (0.5-0.9) H 1.3 mg/dL (0.5-0.9) H Estimat Glomerular Filtration Rate mL/min (>60) mL/min (>60) Glucose Level 214 mg/dL (74-106) H 117 mg/dL (74-106) H Calcium Level 8.6 mg/dL (8.6-10.2) 8.7 mg/dL (8.6-10.2) White Blood Count 6.6 K/UL (4.8-10.8) Red Blood Count 3.55 M/UL (4.20-5.40) L Hemoglobin 10.5 G/DL (12.0-16.0) L Hematocrit 33.0 % (37.0-47.0) L Mean Corpuscular Volume 93 FL (80-99) Mean Corpuscular Hemoglobin 29.6 PG (27.0-31.0) Mean Corpuscular Hemoglobin Concent 31.8 G/DL (32.0-36.0) L Red Cell Distribution Width 13.4 % (11.6-14.8) Platelet Count 121 K/UL (150-450) L Mean Platelet Volume 8.2 FL (6.5-10.1) Neutrophils (%) (Auto) 66.3 % (45.0-75.0) Lymphocytes (%) (Auto) 20.8 % (20.0-45.0) Monocytes (%) (Auto) 12.2 % (1.0-10.0) H Eosinophils (%) (Auto) 0.2 % (0.0-3.0) Basophils (%) (Auto) 0.5 % (0.0-2.0) Phosphorus Level 1.6 mg/dL (2.5-4.8) L Magnesium Level 2.3 mg/dL (1.7-2.5) Total Bilirubin 0.3 mg/dL (0.0-1.2) Aspartate Amino Transf (AST/SGOT) 25 U/L (5-40) Alanine Aminotransferase (ALT/SGPT) 14 U/L (3-33) Alkaline Phosphatase 59 U/L (35-104) Troponin I < 0.30 ng/mL (<=0.30) Pro-B-Type Natriuretic Peptide 31509 pg/mL (0-450) H Total Protein 6.2 g/dL (6.6-8.7) L Albumin 2.8 g/dL (3.5-5.2) L Globulin 3.4 g/dL Albumin/Globulin Ratio 0.8 (1.0-2.7) L Thyroid Stimulating Hormone (TSH) Pending Free Thyroxine 1.17 ng/dL (0.86-1.85) Test 03/12/17 08:25 Arterial Blood pH 7.380 (7.350-7.450) Arterial Blood Partial Pressure CO2 46.5 mmHg (35.0-45.0) H Arterial Blood Partial Pressure O2 132.7 mmHg (75.0-100.0) H Arterial Blood HCO3 27.3 mmol/L (22.0-26.0) H Arterial Blood Oxygen Saturation 98.5 % (92.0-98.0) H Arterial Blood Base Excess 1.8 Khadar Test Positive Current Medications Medications (Trade) Dose Ordered Sig/Christopher Route PRN Reason Start Time Stop Time Status Last Admin Dose Admin Acetaminophen (Tylenol) 650 mg Q4H PRN GT Mild Pain (Pain Scale 1-3) 03/11/17 16:30 04/10/17 16:29 03/11/17 21:16 Acetaminophen (Tylenol) 650 mg Q4H PRN GT fever 03/11/17 16:30 04/10/17 16:29 Albuterol/ Ipratropium (DuoNeb 0.5-3(2.5)mg/3ml) 3 ml Q4H PRN INH Shortness of Breath 03/11/17 16:30 03/16/17 16:29 Bisacodyl (Dulcolax) 10 mg DAILYPRN PRN RECTAL Constipation unrelieved by Khanh 03/12/17 15:30 04/11/17 15:29 Chlorhexidine Gluconate (Tatiana-Hex 2%) 1 applic DAILY TOPIC 03/13/17 04:00 04/12/17 03:59 Dextrose (Dextrose 50%) STAT PRN IV Hypoglycemia 03/12/17 16:00 04/11/17 15:59 Docusate Sodium (Colace) 100 mg EVERY 12 HOURS GT 03/11/17 21:00 04/10/17 20:59 03/12/17 09:05 Furosemide 40 mg 40 mg EVERY 12 HOURS IV 03/11/17 21:00 04/10/17 20:59 03/12/17 09:06 Insulin Aspart (NovoLOG) EVERY 6 HOURS SUBQ 03/11/17 18:00 04/10/17 17:59 03/12/17 00:19 Lansoprazole (Prevacid) 30 mg DAILY GT 03/12/17 09:00 04/11/17 08:59 03/12/17 09:05 Levofloxacin 150 ml @ 100 mls/hr Q48H IVPB 03/13/17 01:00 03/20/17 00:59 Magnesium Hydroxide (Mom) 30 ml HSPRN PRN GT Constipation 03/11/17 16:00 04/10/17 15:59 Metoprolol Tartrate (Lopressor) 12.5 mg Q12HR GT 03/11/17 21:00 04/10/17 20:59 Metronidazole (Flagyl) 100 ml @ 100 mls/hr Q8HR IVPB 03/11/17 22:00 03/18/17 21:59 03/12/17 05:40 Ondansetron HCl (Zofran) 4 mg Q6H PRN IVP Nausea & Vomiting 03/11/17 16:30 04/10/17 16:29 Polyethylene Glycol (Miralax) 17 gm DAILYPRN PRN GT Constipation 03/12/17 16:30 04/11/17 16:29 Promethazine HCl/ Codeine (Phenergan with Codeine) 5 ml Q4H PRN ORAL For Cough 03/11/17 16:30 04/10/17 16:29 Sitagliptin Phosphate (Januvia) 25 mg DAILY GT 03/12/17 09:00 04/11/17 08:59 03/12/17 10:11 Sodium Chloride 1,000 ml @ 50 mls/hr Q20H IV 03/11/17 17:00 04/10/17 16:59 03/11/17 17:00 Sodium Phosphate/ Sodium Chloride (NaPO4/Sodium Chloride) 278.3333 ml @ 92.778 m... ONCE ONCE IVPB 03/12/17 09:00 03/12/17 11:59 03/12/17 09:42 YULI LAWRENCE M.D. Mar 12, 2017 10:37
--- NOTE | 2017-03-12 10:57 | Pulmonolgy Critical Care Note ---
Critical Care - Asmt/Plan Problems: (1) Acute respiratory failure (2) Pneumonia (3) Sepsis (4) Hemiparesis affecting left side as late effect of cerebrovascular accident (5) Feeding by G-tube (6) Aspiration pneumonia Respiratory: monitor respiratory rate, adjust FIO2, CXR Cardiac: continue to monitor HR/BP Renal: F/U I&O, keep IV fluid Infectious Disease: check cultures Gastrointestinal: continue feedings/current rate Endocrine: monitor blood sugar, check TSH, continue sliding scale insulin Hematologic: monitor H/H, transfuse if hgb<8.5 Neurologic: PRN Ativan, PRN Morphine, keep patient comfortable Affect: PRN ativan Prophylaxis: Protonix, Heparin Disposition: transfer to Time Spent (Minutes): 40 Notes Reviewed: cardio, renal Discussed with: nurses, consultants, case folderassistant manager of operations - Objective Last 24 Hour Vital Signs Date Time Temp Pulse Resp B/P Pulse Ox O2 Delivery O2 Flow Rate FiO2 03/12/17 09:00 80 95/45 03/12/17 08:42 91 15 98 Facial 50 03/12/17 08:00 50 03/12/17 08:00 95 03/12/17 08:00 99.1 96 20 99/45 97 Bi-pap 50 03/12/17 07:21 90 15 96 Facial 50 03/12/17 07:00 81 14 93/47 100 Bi-pap 50 03/12/17 06:00 79 14 90/46 100 Bi-pap 50 03/12/17 05:00 82 15 90/54 100 Bi-pap 50 03/12/17 04:42 108 23 98 Facial 50 03/12/17 04:00 85 03/12/17 04:00 99.0 90 19 83/42 100 Bi-pap 50 03/12/17 04:00 50 03/12/17 03:30 90 24 100 Facial 50 03/12/17 03:00 99 25 107/70 100 Bi-pap 50 03/12/17 02:00 88 15 83/48 100 Bi-pap 50 03/12/17 01:30 100 23 100 Facial 50 03/12/17 01:00 98 20 97/57 100 Bi-pap 50 03/12/17 00:00 50 03/12/17 00:00 81 03/12/17 00:00 98.9 87 17 86/40 100 Bi-pap 50 03/11/17 23:07 100 23 100 Facial 50 03/11/17 23:00 96 15 77/36 100 Bi-pap 50 03/11/17 22:00 96 18 94/31 100 Bi-pap 50 03/11/17 21:46 98.7 03/11/17 21:30 100 23 100 Facial 50 03/11/17 21:00 96 18 86/46 100 Bi-pap 50 03/11/17 20:42 99 88/38 03/11/17 20:00 91 03/11/17 20:00 98.7 99 17 88/38 100 Bi-pap 50 03/11/17 19:30 97 19 100 Facial 50 03/11/17 19:30 Bi-pap 03/11/17 19:00 96 24 97/40 100 Bi-pap 50 03/11/17 18:00 96 24 101/50 97 Bi-pap 50 03/11/17 17:09 100 23 100 Facial 50 03/11/17 17:00 98 23 110/54 98 Bi-pap 50 03/11/17 17:00 50 03/11/17 16:00 50 03/11/17 15:45 98.5 102 25 125/58 96 Bi-pap 45 03/11/17 15:40 94 24 96 Facial 3.0 45 03/11/17 14:47 45 03/11/17 14:47 97 23 97 Nasal Cannula 3.0 32 03/11/17 14:47 100 23 95 Simple Mask 3.0 45 03/11/17 12:00 98.2 102 23 118/62 97 Simple Mask 3.0 03/11/17 11:34 89 20 99 Venturi Mask 10.0 45 03/11/17 11:24 89 21 94 Venturi Mask 10.0 45 Status: sedated HEENT: atraumatic, normocephalic Lungs: rales, rhonchi Heart: HR/BP stable Abdomen: soft, non-tender Extremities: no C/C/E Micro: Microbiology Date/Time Source Procedure Growth Status 03/10/17 00:30 Wound Gram Stain - Final Resulted 03/10/17 00:30 Wound Culture - Preliminary Proteus Mirabilis Enterococcus Faecalis - Vre Resulted 03/10/17 00:30 Sputum Gram Stain - Final Complete 03/10/17 00:30 Sputum Sputum Culture - Final NORMAL UPPER RESPIRATORY JONATAN PRESENT Complete Accucheck: 99 Critical Care - Subjective ROS Limited/Unobtainable: Yes ICU Day: 2 Condition: critical EKG Rhythm: Sinus Rhythm FI02: 50 Vent Support Breath Rate: 14 Sputum Amount: None Tube Feeding Amount: 45 I&O: Intake and Output 03/11/17 03/12/17 19:00 07:00 Intake Total 740 ml 1390 ml Output Total 600 ml 480 ml Balance 140 ml 910 ml IV Total 200 ml 800 ml Tube Feeding 540 ml 540 ml Other 50 ml Output Urine Total 600 ml 480 ml # Bowel Movements 2 CXR: right lower lobe better Labs: Laboratory Tests Test 03/11/17 14:45 03/11/17 16:50 03/11/17 17:00 03/12/17 05:00 Arterial Blood pH 7.140 (7.350-7.450) 7.318 (7.350-7.450) Arterial Blood Partial Pressure CO2 86.3 mmHg (35.0-45.0) *H 50.9 mmHg (35.0-45.0) H Arterial Blood Partial Pressure O2 88.7 mmHg (75.0-100.0) 112.5 mmHg (75.0-100.0) H Arterial Blood HCO3 29.2 mmol/L (22.0-26.0) H 25.5 mmol/L (22.0-26.0) Arterial Blood Oxygen Saturation 97.0 % (92.0-98.0) 98.6 % (92.0-98.0) H Arterial Blood Base Excess -1.6 -1.1 Khadar Test Positive Positive Sodium Level 146 mEQ/L (135-145) H 148 mEQ/L (135-145) H Potassium Level 4.8 mEQ/L (3.4-4.9) 4.4 mEQ/L (3.4-4.9) Chloride Level 108 mEQ/L (98-107) H 109 mEQ/L (98-107) H Carbon Dioxide Level 26 mEQ/L (20-30) 26 mEQ/L (20-30) Anion Gap 12 (5-15) 13 (5-15) Blood Urea Nitrogen 33 mg/dL (7-23) H 39 mg/dL (7-23) H Creatinine 1.0 mg/dL (0.5-0.9) H 1.3 mg/dL (0.5-0.9) H Estimat Glomerular Filtration Rate mL/min (>60) mL/min (>60) Glucose Level 214 mg/dL (74-106) H 117 mg/dL (74-106) H Calcium Level 8.6 mg/dL (8.6-10.2) 8.7 mg/dL (8.6-10.2) White Blood Count 6.6 K/UL (4.8-10.8) Red Blood Count 3.55 M/UL (4.20-5.40) L Hemoglobin 10.5 G/DL (12.0-16.0) L Hematocrit 33.0 % (37.0-47.0) L Mean Corpuscular Volume 93 FL (80-99) Mean Corpuscular Hemoglobin 29.6 PG (27.0-31.0) Mean Corpuscular Hemoglobin Concent 31.8 G/DL (32.0-36.0) L Red Cell Distribution Width 13.4 % (11.6-14.8) Platelet Count 121 K/UL (150-450) L Mean Platelet Volume 8.2 FL (6.5-10.1) Neutrophils (%) (Auto) 66.3 % (45.0-75.0) Lymphocytes (%) (Auto) 20.8 % (20.0-45.0) Monocytes (%) (Auto) 12.2 % (1.0-10.0) H Eosinophils (%) (Auto) 0.2 % (0.0-3.0) Basophils (%) (Auto) 0.5 % (0.0-2.0) Phosphorus Level 1.6 mg/dL (2.5-4.8) L Magnesium Level 2.3 mg/dL (1.7-2.5) Total Bilirubin 0.3 mg/dL (0.0-1.2) Aspartate Amino Transf (AST/SGOT) 25 U/L (5-40) Alanine Aminotransferase (ALT/SGPT) 14 U/L (3-33) Alkaline Phosphatase 59 U/L (35-104) Troponin I < 0.30 ng/mL (<=0.30) Pro-B-Type Natriuretic Peptide 90423 pg/mL (0-450) H Total Protein 6.2 g/dL (6.6-8.7) L Albumin 2.8 g/dL (3.5-5.2) L Globulin 3.4 g/dL Albumin/Globulin Ratio 0.8 (1.0-2.7) L Thyroid Stimulating Hormone (TSH) Pending Free Thyroxine 1.17 ng/dL (0.86-1.85) Test 03/12/17 08:25 Arterial Blood pH 7.380 (7.350-7.450) Arterial Blood Partial Pressure CO2 46.5 mmHg (35.0-45.0) H Arterial Blood Partial Pressure O2 132.7 mmHg (75.0-100.0) H Arterial Blood HCO3 27.3 mmol/L (22.0-26.0) H Arterial Blood Oxygen Saturation 98.5 % (92.0-98.0) H Arterial Blood Base Excess 1.8 Khadar Test Positive MARIANELA HARRY Mar 12, 2017 10:57
--- NOTE | 2017-03-12 10:58 | Diagnostic Imaging Report ---
Indication: DYSPNEA Technique: One view of the chest Comparison: 03/11/2017 Findings: Since the prior exam, there is been interim marked improvement of previously demonstrated bilateral pleural effusions. There is likely some residual pleural fluid, however. Interstitial congestive changes versus interstitial infiltrates persist, right greater than left. The heart size is normal. Impression: Since the previous day, marked improvement of previously demonstrated bilateral pleural effusions. Persistent right greater than left interstitial infiltrates versus edema
--- NOTE | 2017-03-12 12:37 | Diagnostic Imaging Report ---
Indications: Needs long-term IV access Technique: Procedure performed at bedside. Procedural timeout performed. Ultrasound confirms patent compressible left brachial vein. Total sterile technique, including sterile probe cover and sterile gel, sterile gloves, hand hygiene, hat, mask,, sterile gown, large sterile drape, and preparation with 2% chlorhexidine utilized. Local anesthesia with 1% lidocaine. Under real-time ultrasound guidance, puncture left brachial vein using 21-gauge needle, passage 0.018 guidewire, exchange for 5 Mexican peel-away sheath. The guidewire would not passed centrally beyond 45 cm. 5 Mexican Bard dual-lumen power PICC cut to 48 cm. Multiple attempts were made at manipulating the catheter and guidewire more centrally, but these were unsuccessful. The catheter was re-cut at 20 cm. It was inserted through the peel-away sheath. Peel-away sheath and guidewire removed. Catheter fixed to the skin. Both catheter ports aspirated and flushed. Patient tolerated procedure well, without immediate complication. Followup chest x-ray obtained, documents catheter tip position at the axillary subclavian venous junction Impression: Successful bedside placement of left arm PICC under sonographic guidance, as described above. Note that the catheter had to be cut short, due to inability to pass centrally, presumably due to central venoocclusive disease. Therefore suitable only for use as a midline. Patient's nurse notified
[2017-03-12 14:03] LABS: ABG ALLEN TEST POSITIVE
[2017-03-12 14:08] LABS: THYROID STIMULATING HORMONE 1.57 uIU/mL (0.300-4.500)
[2017-03-12 14:19] LABS: BASOPHILS % (AUTO) 1.6 % (0.0-2.0); EOSINOPHILS % (AUTO) 0.6 % (0.0-3.0); LYMPHOCYTES % (AUTO) 19.1 % (20.0-45.0); MEAN CORPUSCULAR HEMOGLOBIN 29.3 PG (27.0-31.0); MEAN CORPUSCULAR VOLUME 92 FL (80-99); MONOCYTES % (AUTO) 12.1 % (1.0-10.0); NEUTROPHILS % (AUTO) 66.7 % (45.0-75.0); PLATELET COUNT 110 K/UL (150-450); RED BLOOD COUNT 3.37 M/UL (4.20-5.40); RED CELL DISTRIBUTION WIDTH 13.2 % (11.6-14.8); WHITE BLOOD COUNT 5.9 K/UL (4.8-10.8)
[2017-03-12 14:41] LABS: TROPONIN I < 0.30 ng/mL (<=0.30)
[2017-03-12 14:42] LABS: ALANINE AMINOTRANSFERASE 14 U/L (3-33); ANION GAP 12 (5-15); ASPARTATE AMINO TRANSFERASE 24 U/L (5-40); CARBON DIOXIDE 27 mEQ/L (20-30); CHLORIDE 105 mEQ/L (98-107); CREATININE 1.1 mg/dL (0.5-0.9); HEMOLYSIS 2; POTASSIUM 3.7 mEQ/L (3.4-4.9); SODIUM 144 mEQ/L (135-145); TOTAL PROTEIN 5.8 g/dL (6.6-8.7)
[2017-03-12 14:52] LABS: CKMB 2.5 ng/mL (< 3.8)
--- NOTE | 2017-03-12 15:12 | Cardiac Electrophysiology PN ---
Assessment/Plan Assessment/Plan 1. 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 I believe all are artifact. Physiologically impossible to have this fast VT and actually can trace underlying QRS thru the the VF strip.BP remained stable throughout. No HI. 2. Congestive heart failure with BNP of more than 18,000. IV Lasix Dced as BP dropped to 90s.Her echocardiogram showed ejection fraction of 55% with no pericardial effusion.BNP down to 8000 3. Sinus tachycardia secondary to respiratory failure and sepsis. The patient is on IV Levaquin. 4. Hypertension. DC Lopressor 12.5 mg for low BP. 5. Respiratory failure, on BiPAP. 6. Status post percutaneous endoscopic gastrostomy placement for dysphagia. 7. History of cerebrovascular accident with hemiplegia and aphasia. 8. Diabetes, on Januvia. DW Dr Sky and WICK TENDER and Niece at bedside. Subjective Subjective In ICU on BIPAP. Opens eyes Niece at bedside. Called for recurrent VT/VF but BP stable. Objective Last 24 Hour Vital Signs Date Time Temp Pulse Resp B/P Pulse Ox O2 Delivery O2 Flow Rate FiO2 03/12/17 14:55 105 21 94 Facial 30 03/12/17 14:00 85 20 114/69 98 Bi-pap 30 03/12/17 13:00 103 20 101/61 98 Bi-pap 50 03/12/17 12:45 95 15 88 Facial 50 03/12/17 12:00 98.8 80 20 90/45 96 Bi-pap 50 03/12/17 12:00 90 03/12/17 12:00 30 03/12/17 11:09 98 15 98 Facial 50 03/12/17 11:00 94 20 102/58 96 Bi-pap 50 03/12/17 10:00 99 23 103/58 95 Bi-pap 50 03/12/17 09:00 80 95/45 03/12/17 09:00 86 15 95/45 100 Bi-pap 50 03/12/17 08:42 91 15 98 Facial 50 03/12/17 08:00 50 03/12/17 08:00 95 03/12/17 08:00 99.1 96 20 99/45 97 Bi-pap 50 03/12/17 07:21 90 15 96 Facial 50 03/12/17 07:00 81 14 93/47 100 Bi-pap 50 03/12/17 06:00 79 14 90/46 100 Bi-pap 50 03/12/17 05:00 82 15 90/54 100 Bi-pap 50 03/12/17 04:42 108 23 98 Facial 50 03/12/17 04:00 85 03/12/17 04:00 99.0 90 19 83/42 100 Bi-pap 50 03/12/17 04:00 50 03/12/17 03:30 90 24 100 Facial 50 03/12/17 03:00 99 25 107/70 100 Bi-pap 50 03/12/17 02:00 88 15 83/48 100 Bi-pap 50 03/12/17 01:30 100 23 100 Facial 50 03/12/17 01:00 98 20 97/57 100 Bi-pap 50 03/12/17 00:00 50 03/12/17 00:00 81 03/12/17 00:00 98.9 87 17 86/40 100 Bi-pap 50 03/11/17 23:07 100 23 100 Facial 50 03/11/17 23:00 96 15 77/36 100 Bi-pap 50 03/11/17 22:00 96 18 94/31 100 Bi-pap 50 03/11/17 21:46 98.7 03/11/17 21:30 100 23 100 Facial 50 03/11/17 21:00 96 18 86/46 100 Bi-pap 50 03/11/17 20:42 99 88/38 03/11/17 20:00 91 03/11/17 20:00 98.7 99 17 88/38 100 Bi-pap 50 03/11/17 19:30 97 19 100 Facial 50 03/11/17 19:30 Bi-pap 03/11/17 19:00 96 24 97/40 100 Bi-pap 50 03/11/17 18:00 96 24 101/50 97 Bi-pap 50 03/11/17 17:09 100 23 100 Facial 50 03/11/17 17:00 98 23 110/54 98 Bi-pap 50 03/11/17 17:00 50 03/11/17 16:00 50 03/11/17 15:45 98.5 102 25 125/58 96 Bi-pap 45 03/11/17 15:40 94 24 96 Facial 3.0 45 Intake and Output 03/11/17 03/12/17 19:00 07:00 Intake Total 740 ml 1390 ml Output Total 600 ml 480 ml Balance 140 ml 910 ml IV Total 200 ml 800 ml Tube Feeding 540 ml 540 ml Other 50 ml Output Urine Total 600 ml 480 ml # Bowel Movements 2 Laboratory Tests Test 03/11/17 16:50 03/11/17 17:00 03/12/17 05:00 03/12/17 08:25 Sodium Level 146 mEQ/L (135-145) H 148 mEQ/L (135-145) H Potassium Level 4.8 mEQ/L (3.4-4.9) 4.4 mEQ/L (3.4-4.9) Chloride Level 108 mEQ/L (98-107) H 109 mEQ/L (98-107) H Carbon Dioxide Level 26 mEQ/L (20-30) 26 mEQ/L (20-30) Anion Gap 12 (5-15) 13 (5-15) Blood Urea Nitrogen 33 mg/dL (7-23) H 39 mg/dL (7-23) H Creatinine 1.0 mg/dL (0.5-0.9) H 1.3 mg/dL (0.5-0.9) H Estimat Glomerular Filtration Rate mL/min (>60) mL/min (>60) Glucose Level 214 mg/dL (74-106) H 117 mg/dL (74-106) H Calcium Level 8.6 mg/dL (8.6-10.2) 8.7 mg/dL (8.6-10.2) Arterial Blood pH 7.318 (7.350-7.450) 7.380 (7.350-7.450) Arterial Blood Partial Pressure CO2 50.9 mmHg (35.0-45.0) H 46.5 mmHg (35.0-45.0) H Arterial Blood Partial Pressure O2 112.5 mmHg (75.0-100.0) H 132.7 mmHg (75.0-100.0) H Arterial Blood HCO3 25.5 mmol/L (22.0-26.0) 27.3 mmol/L (22.0-26.0) H Arterial Blood Oxygen Saturation 98.6 % (92.0-98.0) H 98.5 % (92.0-98.0) H Arterial Blood Base Excess -1.1 1.8 Khadar Test Positive Positive White Blood Count 6.6 K/UL (4.8-10.8) Red Blood Count 3.55 M/UL (4.20-5.40) L Hemoglobin 10.5 G/DL (12.0-16.0) L Hematocrit 33.0 % (37.0-47.0) L Mean Corpuscular Volume 93 FL (80-99) Mean Corpuscular Hemoglobin 29.6 PG (27.0-31.0) Mean Corpuscular Hemoglobin Concent 31.8 G/DL (32.0-36.0) L Red Cell Distribution Width 13.4 % (11.6-14.8) Platelet Count 121 K/UL (150-450) L Mean Platelet Volume 8.2 FL (6.5-10.1) Neutrophils (%) (Auto) 66.3 % (45.0-75.0) Lymphocytes (%) (Auto) 20.8 % (20.0-45.0) Monocytes (%) (Auto) 12.2 % (1.0-10.0) H Eosinophils (%) (Auto) 0.2 % (0.0-3.0) Basophils (%) (Auto) 0.5 % (0.0-2.0) Phosphorus Level 1.6 mg/dL (2.5-4.8) L Magnesium Level 2.3 mg/dL (1.7-2.5) Total Bilirubin 0.3 mg/dL (0.0-1.2) Aspartate Amino Transf (AST/SGOT) 25 U/L (5-40) Alanine Aminotransferase (ALT/SGPT) 14 U/L (3-33) Alkaline Phosphatase 59 U/L (35-104) Troponin I < 0.30 ng/mL (<=0.30) Pro-B-Type Natriuretic Peptide 07607 pg/mL (0-450) H Total Protein 6.2 g/dL (6.6-8.7) L Albumin 2.8 g/dL (3.5-5.2) L Globulin 3.4 g/dL Albumin/Globulin Ratio 0.8 (1.0-2.7) L Thyroid Stimulating Hormone (TSH) 1.570 uIU/mL (0.300-4.500) Free Thyroxine 1.17 ng/dL (0.86-1.85) Test 03/12/17 13:55 03/12/17 14:00 Arterial Blood pH 7.370 (7.350-7.450) Arterial Blood Partial Pressure CO2 47.0 mmHg (35.0-45.0) H Arterial Blood Partial Pressure O2 79.1 mmHg (75.0-100.0) Arterial Blood HCO3 26.6 mmol/L (22.0-26.0) H Arterial Blood Oxygen Saturation 96.4 % (92.0-98.0) Arterial Blood Base Excess 1.0 Khadar Test Positive White Blood Count 5.9 K/UL (4.8-10.8) Red Blood Count 3.37 M/UL (4.20-5.40) L Hemoglobin 9.9 G/DL (12.0-16.0) L Hematocrit 30.9 % (37.0-47.0) L Mean Corpuscular Volume 92 FL (80-99) Mean Corpuscular Hemoglobin 29.3 PG (27.0-31.0) Mean Corpuscular Hemoglobin Concent 32.0 G/DL (32.0-36.0) Red Cell Distribution Width 13.2 % (11.6-14.8) Platelet Count 110 K/UL (150-450) L Mean Platelet Volume 7.0 FL (6.5-10.1) Neutrophils (%) (Auto) 66.7 % (45.0-75.0) Lymphocytes (%) (Auto) 19.1 % (20.0-45.0) L Monocytes (%) (Auto) 12.1 % (1.0-10.0) H Eosinophils (%) (Auto) 0.6 % (0.0-3.0) Basophils (%) (Auto) 1.6 % (0.0-2.0) Sodium Level 144 mEQ/L (135-145) Potassium Level 3.7 mEQ/L (3.4-4.9) Chloride Level 105 mEQ/L (98-107) Carbon Dioxide Level 27 mEQ/L (20-30) Anion Gap 12 (5-15) Blood Urea Nitrogen 36 mg/dL (7-23) H Creatinine 1.1 mg/dL (0.5-0.9) H Estimat Glomerular Filtration Rate mL/min (>60) Glucose Level 118 mg/dL (74-106) H Lactic Acid Level 1.60 mmol/L (0.66-2.22) Calcium Level 8.0 mg/dL (8.6-10.2) L Total Bilirubin 0.3 mg/dL (0.0-1.2) Aspartate Amino Transf (AST/SGOT) 24 U/L (5-40) Alanine Aminotransferase (ALT/SGPT) 14 U/L (3-33) Alkaline Phosphatase 52 U/L (35-104) Creatine Kinase MB 2.5 ng/mL (< 3.8) Troponin I < 0.30 ng/mL (<=0.30) Pro-B-Type Natriuretic Peptide 8279 pg/mL (0-450) H Total Protein 5.8 g/dL (6.6-8.7) L Albumin 2.9 g/dL (3.5-5.2) L Globulin 2.9 g/dL Albumin/Globulin Ratio 1.0 (1.0-2.7) Microbiology Date/Time Source Procedure Growth Status 03/10/17 00:30 Wound Gram Stain - Final Resulted 03/10/17 00:30 Wound Culture - Preliminary Proteus Mirabilis Enterococcus Faecalis - Vre Resulted 03/10/17 00:30 Sputum Gram Stain - Final Complete 03/10/17 00:30 Sputum Sputum Culture - Final NORMAL UPPER RESPIRATORY JONATAN PRESENT Complete Objective NECK: Positive JVD. LUNGS: Decreased breath sounds on BiPAP CARDIOVASCULAR: She is tachycardic. S1-S2 with no gallop or murmur. Old tracheostomy site is closed. ABDOMEN: Soft and status post PEG. EXTREMITIES: She has 1+ pitting edema. JUNIOR CASTILLO Mar 12, 2017 15:12
[2017-03-12] MEDS ORDERED: Miralax 17gm pkt GT PRN (16:30)
--- NOTE | 2017-03-12 18:18 | Internal Med Progress Note ---
Subjective Date of Service: Mar 12, 2017 Physician Name Suri Clinton Attending Physician Tereso Toro MD Current Medications Medications (Trade) Dose Ordered Sig/Christopher Route PRN Reason Start Time Stop Time Status Last Admin Dose Admin Acetaminophen (Tylenol) 650 mg Q4H PRN GT Mild Pain (Pain Scale 1-3) 03/11/17 16:30 04/10/17 16:29 03/11/17 21:16 Acetaminophen (Tylenol) 650 mg Q4H PRN GT fever 03/11/17 16:30 04/10/17 16:29 Albuterol/ Ipratropium (DuoNeb 0.5-3(2.5)mg/3ml) 3 ml Q4H PRN INH Shortness of Breath 03/11/17 16:30 03/16/17 16:29 Chlorhexidine Gluconate (Tatiana-Hex 2%) 1 applic DAILY TOPIC 03/13/17 04:00 04/12/17 03:59 Dextrose (Dextrose 50%) STAT PRN IV Hypoglycemia 03/12/17 16:00 04/11/17 15:59 Docusate Sodium (Colace) 100 mg EVERY 12 HOURS GT 03/11/17 21:00 04/10/17 20:59 03/12/17 09:05 Heparin Sodium (Porcine) (Heparin 5000 units/ml) 5,000 units EVERY 12 HOURS SUBQ 03/12/17 21:00 04/11/17 20:59 Insulin Aspart (NovoLOG) EVERY 6 HOURS SUBQ 03/11/17 18:00 04/10/17 17:59 03/12/17 18:13 Levofloxacin 150 ml @ 100 mls/hr Q48H IVPB 03/13/17 01:00 03/20/17 00:59 Magnesium Hydroxide (Mom) 30 ml HSPRN PRN GT Constipation 03/11/17 16:00 04/10/17 15:59 Metronidazole (Flagyl) 100 ml @ 100 mls/hr Q8HR IVPB 03/11/17 22:00 03/18/17 21:59 03/12/17 14:00 Pantoprazole (Protonix) 40 mg EVERY 12 HOURS IVP 03/12/17 21:00 04/11/17 20:59 Allergies: Coded Allergies: No Known Allergies (Verified , 08/14/06) ROS Limited/Unobtainable: Yes Subjective 77 YO F admitted with hypotension, fever and congestion. Patient transfered to ICU overnight due to hypotension and probable shock. Cover for Int Med-Dr Toro. Family requests transfer to [facility]-See soc work note. Objective Last Vital Signs Date Time Temp Pulse Resp B/P Pulse Ox O2 Delivery O2 Flow Rate FiO2 03/12/17 17:20 81 22 99 Facial 30 03/12/17 17:00 98.9 105/52 03/11/17 15:40 3.0 Laboratory Tests Test 03/12/17 05:00 03/12/17 08:25 03/12/17 13:55 03/12/17 14:00 White Blood Count 6.6 K/UL (4.8-10.8) 5.9 K/UL (4.8-10.8) Red Blood Count 3.55 M/UL (4.20-5.40) L 3.37 M/UL (4.20-5.40) L Hemoglobin 10.5 G/DL (12.0-16.0) L 9.9 G/DL (12.0-16.0) L Hematocrit 33.0 % (37.0-47.0) L 30.9 % (37.0-47.0) L Mean Corpuscular Volume 93 FL (80-99) 92 FL (80-99) Mean Corpuscular Hemoglobin 29.6 PG (27.0-31.0) 29.3 PG (27.0-31.0) Mean Corpuscular Hemoglobin Concent 31.8 G/DL (32.0-36.0) L 32.0 G/DL (32.0-36.0) Red Cell Distribution Width 13.4 % (11.6-14.8) 13.2 % (11.6-14.8) Platelet Count 121 K/UL (150-450) L 110 K/UL (150-450) L Mean Platelet Volume 8.2 FL (6.5-10.1) 7.0 FL (6.5-10.1) Neutrophils (%) (Auto) 66.3 % (45.0-75.0) 66.7 % (45.0-75.0) Lymphocytes (%) (Auto) 20.8 % (20.0-45.0) 19.1 % (20.0-45.0) L Monocytes (%) (Auto) 12.2 % (1.0-10.0) H 12.1 % (1.0-10.0) H Eosinophils (%) (Auto) 0.2 % (0.0-3.0) 0.6 % (0.0-3.0) Basophils (%) (Auto) 0.5 % (0.0-2.0) 1.6 % (0.0-2.0) Sodium Level 148 mEQ/L (135-145) H 144 mEQ/L (135-145) Potassium Level 4.4 mEQ/L (3.4-4.9) 3.7 mEQ/L (3.4-4.9) Chloride Level 109 mEQ/L (98-107) H 105 mEQ/L (98-107) Carbon Dioxide Level 26 mEQ/L (20-30) 27 mEQ/L (20-30) Anion Gap 13 (5-15) 12 (5-15) Blood Urea Nitrogen 39 mg/dL (7-23) H 36 mg/dL (7-23) H Creatinine 1.3 mg/dL (0.5-0.9) H 1.1 mg/dL (0.5-0.9) H Estimat Glomerular Filtration Rate mL/min (>60) mL/min (>60) Glucose Level 117 mg/dL (74-106) H 118 mg/dL (74-106) H Calcium Level 8.7 mg/dL (8.6-10.2) 8.0 mg/dL (8.6-10.2) L Phosphorus Level 1.6 mg/dL (2.5-4.8) L Magnesium Level 2.3 mg/dL (1.7-2.5) Total Bilirubin 0.3 mg/dL (0.0-1.2) 0.3 mg/dL (0.0-1.2) Aspartate Amino Transf (AST/SGOT) 25 U/L (5-40) 24 U/L (5-40) Alanine Aminotransferase (ALT/SGPT) 14 U/L (3-33) 14 U/L (3-33) Alkaline Phosphatase 59 U/L (35-104) 52 U/L (35-104) Troponin I < 0.30 ng/mL (<=0.30) < 0.30 ng/mL (<=0.30) Pro-B-Type Natriuretic Peptide 62905 pg/mL (0-450) H 8279 pg/mL (0-450) H Total Protein 6.2 g/dL (6.6-8.7) L 5.8 g/dL (6.6-8.7) L Albumin 2.8 g/dL (3.5-5.2) L 2.9 g/dL (3.5-5.2) L Globulin 3.4 g/dL 2.9 g/dL Albumin/Globulin Ratio 0.8 (1.0-2.7) L 1.0 (1.0-2.7) Thyroid Stimulating Hormone (TSH) 1.570 uIU/mL (0.300-4.500) Free Thyroxine 1.17 ng/dL (0.86-1.85) Arterial Blood pH 7.380 (7.350-7.450) 7.370 (7.350-7.450) Arterial Blood Partial Pressure CO2 46.5 mmHg (35.0-45.0) H 47.0 mmHg (35.0-45.0) H Arterial Blood Partial Pressure O2 132.7 mmHg (75.0-100.0) H 79.1 mmHg (75.0-100.0) Arterial Blood HCO3 27.3 mmol/L (22.0-26.0) H 26.6 mmol/L (22.0-26.0) H Arterial Blood Oxygen Saturation 98.5 % (92.0-98.0) H 96.4 % (92.0-98.0) Arterial Blood Base Excess 1.8 1.0 Khadar Test Positive Positive Lactic Acid Level 1.60 mmol/L (0.66-2.22) Creatine Kinase MB 2.5 ng/mL (< 3.8) Microbiology Date/Time Source Procedure Growth Status 03/10/17 00:30 Wound Gram Stain - Final Resulted 03/10/17 00:30 Wound Culture - Preliminary Proteus Mirabilis Enterococcus Faecalis - Vre Resulted 03/10/17 00:30 Sputum Gram Stain - Final Complete 03/10/17 00:30 Sputum Sputum Culture - Final NORMAL UPPER RESPIRATORY JONATAN PRESENT Complete Intake and Output 5/31/17 6/1/17 19:00 07:00 Intake Total 740 ml 1390 ml Output Total 600 ml 480 ml Balance 140 ml 910 ml IV Total 200 ml 800 ml Tube Feeding 540 ml 540 ml Other 50 ml Output Urine Total 600 ml 480 ml # Bowel Movements 2 Objective General Appearance: mild distress, lethargic, thin EENT: normal ENT inspection Neck: non-tender, normal alignment, supple Cardiovascular: normal peripheral pulses, normal rate, regular rhythm, no gallop/murmur, no JVD Respiratory/Chest: BIPAP; labored, accessory muscle use, respiratory distress, crackles/rales, rhonchi - bilaterally, expiratory wheezing Abdomen: normal bowel sounds, non tender, soft, no organomegaly, no mass Extremities: normal range of motion Skin: normal pigmentation, warm/dry Assessment/Plan Problem List: (1) Hypotension (2) Fever (3) HTN (hypertension) Assessment & Plan: Cont metoprolol (4) Diabetes mellitus type II, uncontrolled (5) CHF (congestive heart failure) Assessment & Plan: Await cardiology consult. (6) Hemiparesis affecting left side as late effect of cerebrovascular accident (7) Sepsis Assessment & Plan: possible aspiration; cont flagyl and levaquim per ID and pulmonary (8) Cerebral vascular disease (9) Aspiration pneumonia Assessment & Plan: Cont levaquin and flagyl per ID and pulmonary (10) Pneumonia (11) Acute respiratory failure Assessment & Plan: Continue BIPAP per pulmonary. Assessment/Plan Prognosis is poor-family aware. Await transfer to [facility]. SURI CLINTON Mar 12, 2017 18:18
[2017-03-12] MEDS: Pantoprazole Inj IVP SCH (20:53)
[2017-03-12] MEDS: Nystatin Powder 100,000 units/gm 15gm TOPIC SCH (20:53)
[2017-03-12] MEDS: Heparin 5000 units/ml inj SUBQ SCH (20:54)
[2017-03-12] MEDS: Acetaminophen 650mg/20.3ml GT PRN (21:15)
[2017-03-13] VITALS (21 sets, daily range): BP systolic 94–141; BP diastolic 42–82
[2017-03-13] MEDS ORDERED: Dyna-Hex 2% Top Sol 8oz TOPIC SCH (04:00)
[2017-03-13 05:13] LABS: BASOPHILS % (AUTO) 0.7 % (0.0-2.0); EOSINOPHILS % (AUTO) 1.7 % (0.0-3.0); LYMPHOCYTES % (AUTO) 31.1 % (20.0-45.0); MEAN CORPUSCULAR HEMOGLOBIN 30.4 PG (27.0-31.0); MEAN CORPUSCULAR HGB CONC 33.2 G/DL (32.0-36.0); MEAN CORPUSCULAR VOLUME 92 FL (80-99); MEAN PLATELET VOLUME 7.7 FL (6.5-10.1); MONOCYTES % (AUTO) 10.3 % (1.0-10.0); NEUTROPHILS % (AUTO) 56.2 % (45.0-75.0); PLATELET COUNT 115 K/UL (150-450); RED BLOOD COUNT 3.14 M/UL (4.20-5.40); RED CELL DISTRIBUTION WIDTH 13.1 % (11.6-14.8)
[2017-03-13 05:15] LABS: ALANINE AMINOTRANSFERASE 13 U/L (3-33); ALBUMIN/GLOBULIN RATIO 0.7 (1.0-2.7); ANION GAP 12 (5-15); ASPARTATE AMINO TRANSFERASE 23 U/L (5-40); CALCIUM 8.3 mg/dL (8.6-10.2); CARBON DIOXIDE 26 mEQ/L (20-30); CHLORIDE 109 mEQ/L (98-107); HEMOLYSIS 3; MAGNESIUM 1.9 mg/dL (1.7-2.5); PHOSPHORUS 1.4 mg/dL (2.5-4.8); SODIUM 147 mEQ/L (135-145); TOTAL PROTEIN 5.7 g/dL (6.6-8.7)
[2017-03-13] MEDS: metroNIDAZOLE 500mg 100 ML IVPB SCH ×5 (05:59→21:50)
[2017-03-13] MEDS: NovoLOG Insulin Flexpen SUBQ SCH ×3 (05:59→18:30)
[2017-03-13 08:18] LABS: ABG ALLEN TEST POSITIVE; ABG BASE EXCESS 3.3
--- NOTE | 2017-03-13 09:19 | Internal Med Progress Note ---
Subjective Physician Name Tereso Toro Attending Physician Tereso Toro MD Current Medications Medications (Trade) Dose Ordered Sig/Christopher Route PRN Reason Start Time Stop Time Status Last Admin Dose Admin Acetaminophen (Tylenol) 650 mg Q4H PRN GT Mild Pain (Pain Scale 1-3) 03/11/17 16:30 04/10/17 16:29 03/12/17 21:15 Acetaminophen (Tylenol) 650 mg Q4H PRN GT fever 03/11/17 16:30 04/10/17 16:29 Albuterol/ Ipratropium (DuoNeb 0.5-3(2.5)mg/3ml) 3 ml Q4H PRN INH Shortness of Breath 03/11/17 16:30 03/16/17 16:29 Chlorhexidine Gluconate (Tatiana-Hex 2%) 1 applic DAILY TOPIC 03/13/17 04:00 04/12/17 03:59 03/13/17 04:00 Dextrose (Dextrose 50%) STAT PRN IV Hypoglycemia 03/12/17 16:00 04/11/17 15:59 Docusate Sodium (Colace) 100 mg EVERY 12 HOURS GT 03/11/17 21:00 04/10/17 20:59 03/12/17 20:53 Heparin Sodium (Porcine) (Heparin 5000 units/ml) 5,000 units EVERY 12 HOURS SUBQ 03/12/17 21:00 04/11/17 20:59 Insulin Aspart (NovoLOG) EVERY 6 HOURS SUBQ 03/11/17 18:00 04/10/17 17:59 03/13/17 05:59 Levofloxacin 150 ml @ 100 mls/hr Q48H IVPB 03/13/17 01:00 03/20/17 00:59 03/13/17 01:14 Magnesium Hydroxide (Mom) 30 ml HSPRN PRN GT Constipation 03/11/17 16:00 04/10/17 15:59 Metronidazole (Flagyl) 100 ml @ 100 mls/hr Q8HR IVPB 03/11/17 22:00 03/18/17 21:59 03/13/17 05:59 Nystatin (Nystop Powder) 1 applic THREE TIMES A DAY TOPIC 03/12/17 21:00 04/11/17 20:59 03/12/17 20:53 Pantoprazole (Protonix) 40 mg EVERY 12 HOURS IVP 03/12/17 21:00 04/11/17 20:59 03/12/17 20:53 Allergies: Coded Allergies: No Known Allergies (Verified , 08/14/06) Subjective awake, responsive, not verbal, in ICU, wean off BiPAP Objective Last Vital Signs Date Time Temp Pulse Resp B/P Pulse Ox O2 Delivery O2 Flow Rate FiO2 03/13/17 08:00 89 03/13/17 08:00 98.2 26 118/68 99 Bi-pap 30 03/11/17 15:40 3.0 Laboratory Tests Test 03/12/17 13:55 03/12/17 14:00 03/13/17 04:10 03/13/17 08:11 Arterial Blood pH 7.370 (7.350-7.450) 7.454 (7.350-7.450) Arterial Blood Partial Pressure CO2 47.0 mmHg (35.0-45.0) H 40.0 mmHg (35.0-45.0) Arterial Blood Partial Pressure O2 79.1 mmHg (75.0-100.0) 76.1 mmHg (75.0-100.0) Arterial Blood HCO3 26.6 mmol/L (22.0-26.0) H 27.4 mmol/L (22.0-26.0) H Arterial Blood Oxygen Saturation 96.4 % (92.0-98.0) 96.2 % (92.0-98.0) Arterial Blood Base Excess 1.0 3.3 Khadar Test Positive Positive White Blood Count 5.9 K/UL (4.8-10.8) 5.0 K/UL (4.8-10.8) Red Blood Count 3.37 M/UL (4.20-5.40) L 3.14 M/UL (4.20-5.40) L Hemoglobin 9.9 G/DL (12.0-16.0) L 9.6 G/DL (12.0-16.0) L Hematocrit 30.9 % (37.0-47.0) L 28.8 % (37.0-47.0) L Mean Corpuscular Volume 92 FL (80-99) 92 FL (80-99) Mean Corpuscular Hemoglobin 29.3 PG (27.0-31.0) 30.4 PG (27.0-31.0) Mean Corpuscular Hemoglobin Concent 32.0 G/DL (32.0-36.0) 33.2 G/DL (32.0-36.0) Red Cell Distribution Width 13.2 % (11.6-14.8) 13.1 % (11.6-14.8) Platelet Count 110 K/UL (150-450) L 115 K/UL (150-450) L Mean Platelet Volume 7.0 FL (6.5-10.1) 7.7 FL (6.5-10.1) Neutrophils (%) (Auto) 66.7 % (45.0-75.0) 56.2 % (45.0-75.0) Lymphocytes (%) (Auto) 19.1 % (20.0-45.0) L 31.1 % (20.0-45.0) Monocytes (%) (Auto) 12.1 % (1.0-10.0) H 10.3 % (1.0-10.0) H Eosinophils (%) (Auto) 0.6 % (0.0-3.0) 1.7 % (0.0-3.0) Basophils (%) (Auto) 1.6 % (0.0-2.0) 0.7 % (0.0-2.0) Sodium Level 144 mEQ/L (135-145) 147 mEQ/L (135-145) H Potassium Level 3.7 mEQ/L (3.4-4.9) 4.0 mEQ/L (3.4-4.9) Chloride Level 105 mEQ/L (98-107) 109 mEQ/L (98-107) H Carbon Dioxide Level 27 mEQ/L (20-30) 26 mEQ/L (20-30) Anion Gap 12 (5-15) 12 (5-15) Blood Urea Nitrogen 36 mg/dL (7-23) H 37 mg/dL (7-23) H Creatinine 1.1 mg/dL (0.5-0.9) H 1.0 mg/dL (0.5-0.9) H Estimat Glomerular Filtration Rate mL/min (>60) mL/min (>60) Glucose Level 118 mg/dL (74-106) H 121 mg/dL (74-106) H Lactic Acid Level 1.60 mmol/L (0.66-2.22) Calcium Level 8.0 mg/dL (8.6-10.2) L 8.3 mg/dL (8.6-10.2) L Total Bilirubin 0.3 mg/dL (0.0-1.2) 0.2 mg/dL (0.0-1.2) Aspartate Amino Transf (AST/SGOT) 24 U/L (5-40) 23 U/L (5-40) Alanine Aminotransferase (ALT/SGPT) 14 U/L (3-33) 13 U/L (3-33) Alkaline Phosphatase 52 U/L (35-104) 53 U/L (35-104) Creatine Kinase MB 2.5 ng/mL (< 3.8) Troponin I < 0.30 ng/mL (<=0.30) Pro-B-Type Natriuretic Peptide 8279 pg/mL (0-450) H Total Protein 5.8 g/dL (6.6-8.7) L 5.7 g/dL (6.6-8.7) L Albumin 2.9 g/dL (3.5-5.2) L 2.5 g/dL (3.5-5.2) L Globulin 2.9 g/dL 3.2 g/dL Albumin/Globulin Ratio 1.0 (1.0-2.7) 0.7 (1.0-2.7) L Phosphorus Level 1.4 mg/dL (2.5-4.8) L Magnesium Level 1.9 mg/dL (1.7-2.5) Intake and Output 03/12/17 03/13/17 19:00 07:00 Intake Total 1164.778 ml 990 ml Output Total 1500 ml 530 ml Balance -335.222 ml 460 ml Intake Free Water 250 ml 350 ml IV Total 324.778 ml 100 ml Tube Feeding 540 ml 540 ml Other 50 ml Output Urine Total 1500 ml 530 ml # Bowel Movements 2 1 Objective General: awake, responsive, Off Bipap, open eyes, NAD HEENT: NCAT, sclera anicteric, PERRL, EOMI. Neck: Supple, no significant jugular venous distention, Lungs: fair inspiratory effort, decrease air on bases bilaterally, + Expiratory wheeze, No Rales. Heart: Regular rate and rhythm, normal S1/S2, no murmurs Abdomen: soft, nontender, nondistended. Normoactive bowel sounds. Morbid obesity , + PEG site. : Roberts Cath Extremities: No Cyanosis , clubbing or edema. midline on LUE. Neuro: A&O x 1 Name, Left side weakness and contracted. Skin: warm, no rashes or lesions Assessment/Plan Assessment/Plan (1) Hypotension (2) Fever possible Pneumonia (3) HTN (hypertension) (4) Diabetes mellitus type II, uncontrolled (5) CHF (congestive heart failure) (6) Hemiparesis affecting left side as late effect of cerebrovascular accident (7) Sepsis (8) Cerebral vascular disease with Left Hemiparesis. 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
[2017-03-13] MEDS: Pantoprazole Inj IVP SCH ×2 (09:33→21:45)
[2017-03-13] MEDS: Heparin 5000 units/ml inj SUBQ SCH ×2 (09:41→21:47)
[2017-03-13] MEDS: Nystatin Powder 100,000 units/gm 15gm TOPIC SCH ×3 (09:41→18:15)
[2017-03-13] MEDS: Docusate 100mg/10ml Liq GT SCH ×2 (09:42→21:45)
--- NOTE | 2017-03-13 10:04 | Pulmonology Progress Note ---
Assessment/Plan Problems: (1) Sepsis (2) Diabetes (3) Cerebral vascular disease (4) Feeding by G-tube (5) Hemiparesis affecting left side as late effect of cerebrovascular accident Assessment/Plan cxr showing right effusion carly get US of chest repeat cxr and bnp and the rest of the labs in am check cultures sputum pending hemodynamically stable continue antibiotics, levofloxacine and falgy dvt prophylaxis tolerating diet. Subjective ROS Limited/Unobtainable: No Constitutional: Reports: no symptoms HEENT: Repors: no symptoms Respiratory: Reports: no symptoms Allergies: Coded Allergies: No Known Allergies (Verified , 08/14/06) Objective Last 24 Hour Vital Signs Date Time Temp Pulse Resp B/P Pulse Ox O2 Delivery O2 Flow Rate FiO2 03/13/17 09:11 103 22 95 Nasal Cannula 3.0 32 03/13/17 09:00 106 22 97 Facial 30 03/13/17 08:00 89 03/13/17 08:00 98.2 95 26 118/68 99 Bi-pap 30 03/13/17 08:00 30 03/13/17 07:06 85 32 97 Facial 30 03/13/17 07:00 81 32 111/57 97 Bi-pap 30 03/13/17 06:00 96 36 110/60 97 Bi-pap 30 03/13/17 05:21 83 34 98 Facial 30 03/13/17 05:00 86 25 99/60 99 Bi-pap 30 03/13/17 04:00 30 03/13/17 04:00 86 03/13/17 04:00 98.3 74 22 116/53 98 Bi-pap 30 03/13/17 03:00 75 20 99/47 99 Bi-pap 30 03/13/17 02:50 76 28 100 Full Face 30 03/13/17 02:00 82 23 108/50 99 Bi-pap 30 03/13/17 01:10 89 24 97 Full Face 30 03/13/17 01:00 75 25 103/50 99 Bi-pap 30 03/13/17 00:00 98.9 89 21 102/58 100 Bi-pap 30 03/13/17 00:00 30 03/13/17 00:00 85 03/12/17 23:25 90 25 97 Full Face 30 03/12/17 23:00 99 22 99/49 98 Bi-pap 30 03/12/17 22:00 98.7 105 21 106/71 100 Bi-pap 30 03/12/17 21:45 99.7 03/12/17 21:09 113 30 99 Facial 30 03/12/17 21:00 101.4 105 25 96/57 100 Bi-pap 30 03/12/17 20:00 98.3 108 19 101/57 96 Bi-pap 30 03/12/17 20:00 96 03/12/17 20:00 30 03/12/17 19:24 105 23 97 Facial 30 03/12/17 19:00 101 18 92/52 97 Bi-pap 30 03/12/17 18:00 91 18 107/61 97 Bi-pap 30 03/12/17 17:20 81 22 99 Facial 30 03/12/17 17:00 98.9 95 19 105/52 96 Bi-pap 30 03/12/17 16:00 96 03/12/17 16:00 30 03/12/17 16:00 93 20 98/53 98 Bi-pap 30 03/12/17 15:00 91 20 94/60 98 Bi-pap 30 03/12/17 14:55 105 21 94 Facial 30 03/12/17 14:00 85 20 114/69 98 Bi-pap 30 03/12/17 13:00 103 20 101/61 98 Bi-pap 50 03/12/17 12:45 95 15 88 Facial 30 03/12/17 12:00 98.8 80 20 90/45 96 Bi-pap 50 03/12/17 12:00 90 03/12/17 12:00 30 03/12/17 11:09 98 15 98 Facial 30 03/12/17 11:00 94 20 102/58 96 Bi-pap 50 Intake and Output 03/12/17 03/13/17 19:00 07:00 Intake Total 1164.778 ml 990 ml Output Total 1500 ml 530 ml Balance -335.222 ml 460 ml Intake Free Water 250 ml 350 ml IV Total 324.778 ml 100 ml Tube Feeding 540 ml 540 ml Other 50 ml Output Urine Total 1500 ml 530 ml # Bowel Movements 2 1 General Appearance: WD/WN HEENT: normocephalic, atraumatic Respiratory/Chest: chest wall non-tender, lungs clear Breasts: no masses Cardiovascular: normal peripheral pulses Abdomen: normal bowel sounds, soft, non tender Genitourinary: normal external genitalia Extremities: no clubbing Skin: no rash, no lesions Laboratory Tests 03/12/17 13:55: Arterial Blood pH 7.370, Arterial Blood Partial Pressure CO2 47.0H, Arterial Blood Partial Pressure O2 79.1, Arterial Blood HCO3 26.6H, Arterial Blood Oxygen Saturation 96.4, Arterial Blood Base Excess 1.0, Khadar Test Positive 03/12/17 14:00: White Blood Count 5.9, Red Blood Count 3.37L, Hemoglobin 9.9L, Hematocrit 30.9L , Mean Corpuscular Volume 92, Mean Corpuscular Hemoglobin 29.3, Mean Corpuscular Hemoglobin Concent 32.0, Red Cell Distribution Width 13.2, Platelet Count 110L, Mean Platelet Volume 7.0, Neutrophils (%) (Auto) 66.7, Lymphocytes ( %) (Auto) 19.1L, Monocytes (%) (Auto) 12.1H, Eosinophils (%) (Auto) 0.6, Basophils (%) (Auto) 1.6, Sodium Level 144, Potassium Level 3.7, Chloride Level 105, Carbon Dioxide Level 27, Anion Gap 12, Blood Urea Nitrogen 36H, Creatinine 1.1H, Estimat Glomerular Filtration Rate , Glucose Level 118H, Lactic Acid Level 1.60, Calcium Level 8.0L, Total Bilirubin 0.3, Aspartate Amino Transf (AST /SGOT) 24, Alanine Aminotransferase (ALT/SGPT) 14, Alkaline Phosphatase 52, Creatine Kinase MB 2.5, Troponin I < 0.30, Pro-B-Type Natriuretic Peptide 8279H , Total Protein 5.8L, Albumin 2.9L, Globulin 2.9, Albumin/Globulin Ratio 1.0 03/13/17 04:10: White Blood Count 5.0, Red Blood Count 3.14L, Hemoglobin 9.6L, Hematocrit 28.8L , Mean Corpuscular Volume 92, Mean Corpuscular Hemoglobin 30.4, Mean Corpuscular Hemoglobin Concent 33.2, Red Cell Distribution Width 13.1, Platelet Count 115L, Mean Platelet Volume 7.7, Neutrophils (%) (Auto) 56.2, Lymphocytes ( %) (Auto) 31.1, Monocytes (%) (Auto) 10.3H, Eosinophils (%) (Auto) 1.7, Basophils (%) (Auto) 0.7, Sodium Level 147H, Potassium Level 4.0, Chloride Level 109H, Carbon Dioxide Level 26, Anion Gap 12, Blood Urea Nitrogen 37H, Creatinine 1.0H, Estimat Glomerular Filtration Rate , Glucose Level 121H, Calcium Level 8.3L, Total Bilirubin 0.2, Aspartate Amino Transf (AST/SGOT) 23, Alanine Aminotransferase (ALT/SGPT) 13, Alkaline Phosphatase 53, Total Protein 5.7L, Albumin 2.5L, Globulin 3.2, Albumin/Globulin Ratio 0.7L, Phosphorus Level 1.4L, Magnesium Level 1.9 03/13/17 08:11: Arterial Blood pH 7.454H, Arterial Blood Partial Pressure CO2 40.0, Arterial Blood Partial Pressure O2 76.1, Arterial Blood HCO3 27.4H, Arterial Blood Oxygen Saturation 96.2, Arterial Blood Base Excess 3.3, Khadar Test Positive Current Medications Medications (Trade) Dose Ordered Sig/Christopher Route PRN Reason Start Time Stop Time Status Last Admin Dose Admin Acetaminophen (Tylenol) 650 mg Q4H PRN GT Mild Pain (Pain Scale 1-3) 03/11/17 16:30 04/10/17 16:29 03/12/17 21:15 Acetaminophen (Tylenol) 650 mg Q4H PRN GT fever 03/11/17 16:30 04/10/17 16:29 Albuterol/ Ipratropium (DuoNeb 0.5-3(2.5)mg/3ml) 3 ml Q4H PRN INH Shortness of Breath 03/11/17 16:30 03/16/17 16:29 03/13/17 09:11 Albuterol/ Ipratropium (DuoNeb 0.5-3(2.5)mg/3ml) 3 ml Q6HRT INH 03/13/17 13:00 03/18/17 12:59 Chlorhexidine Gluconate (Tatiana-Hex 2%) 1 applic DAILY TOPIC 03/13/17 04:00 04/12/17 03:59 03/13/17 04:00 Dextrose (Dextrose 50%) STAT PRN IV Hypoglycemia 03/12/17 16:00 04/11/17 15:59 Docusate Sodium (Colace) 100 mg EVERY 12 HOURS GT 03/11/17 21:00 04/10/17 20:59 03/13/17 09:42 Heparin Sodium (Porcine) (Heparin 5000 units/ml) 5,000 units EVERY 12 HOURS SUBQ 03/12/17 21:00 04/11/17 20:59 03/13/17 09:41 Insulin Aspart (NovoLOG) EVERY 6 HOURS SUBQ 03/11/17 18:00 04/10/17 17:59 03/13/17 05:59 Levofloxacin 150 ml @ 100 mls/hr Q48H IVPB 03/13/17 01:00 03/20/17 00:59 03/13/17 01:14 Magnesium Hydroxide (Mom) 30 ml HSPRN PRN GT Constipation 03/11/17 16:00 04/10/17 15:59 Metronidazole (Flagyl) 100 ml @ 100 mls/hr Q8HR IVPB 03/11/17 22:00 03/18/17 21:59 03/13/17 05:59 Nystatin (Nystop Powder) 1 applic THREE TIMES A DAY TOPIC 03/12/17 21:00 04/11/17 20:59 03/13/17 09:41 Pantoprazole (Protonix) 40 mg EVERY 12 HOURS IVP 03/12/17 21:00 04/11/17 20:59 03/13/17 09:33 MARIANELA HARRY 2, 2017 10:04
--- NOTE | 2017-03-13 11:11 | Diagnostic Imaging Report ---
Indication: Dyspnea Comparison: 03/12/17 A single view chest radiograph was obtained. Findings: Residual edema is present. There is hazy right groundglass opacity. PICC line is present in good position. Bones are osteopenic. Impression: Interstitial edema and right pleural effusion. No significant change
[2017-03-13] MEDS: DuoNeb 0.5-3(2.5)mg/3ml neb INH SCH ×2 (14:03→18:52)
--- NOTE | 2017-03-13 14:21 | Cardiac Electrophysiology PN ---
Assessment/Plan Assessment/Plan 1. Recurrent Long artifactual PMVT/VF. Physiologically impossible to have this fast VT and actually can trace underlying QRS thru the the VF strip.BP remained stable throughout. No MT.No further artifact after lead repositioning. 2. Congestive heart failure with BNP of more than 18,000. Her echocardiogram showed ejection fraction of 55% with no pericardial effusion.BNP down to 8000. Resume Lasix 40 iv daily. 3. Sinus tachycardia secondary to respiratory failure and sepsis. The patient is on IV Levaquin. 4. Hypertension. Now only on Lasix 5. Respiratory failure, on BiPAP. 6. Status post percutaneous endoscopic gastrostomy placement for dysphagia. 7. History of cerebrovascular accident with hemiplegia and aphasia. 8. Diabetes, on Januvia. DW Dr Sky and FRUIT PRESERVER and Niece at bedside. Subjective Subjective In ICU on BIPAP. More alert. Niece at bedside. No further VT artifact after lead repositioning. Objective Last 24 Hour Vital Signs Date Time Temp Pulse Resp B/P Pulse Ox O2 Delivery O2 Flow Rate FiO2 03/13/17 13:15 112 33 100 Bi-pap 30 03/13/17 13:10 109 18 95 Facial 30 03/13/17 13:10 108 22 97 Bi-pap 30 03/13/17 13:00 110 29 103/63 96 Bi-pap 30 03/13/17 12:00 30 03/13/17 12:00 89 03/13/17 12:00 98.4 111 33 95/56 97 Bi-pap 30 03/13/17 11:00 105 20 95 Facial 30 03/13/17 11:00 111 22 94/42 95 Bi-pap 30 03/13/17 10:20 118 33 92 Facial 30 03/13/17 10:00 118 32 118/69 93 Bi-pap 30 03/13/17 09:16 111 24 100 Nasal Cannula 3.0 32 03/13/17 09:11 103 22 95 Nasal Cannula 3.0 32 03/13/17 09:00 106 22 97 Facial 30 03/13/17 09:00 122 35 141/75 91 Nasal Cannula 3.0 03/13/17 08:00 89 03/13/17 08:00 98.2 95 26 118/68 99 Bi-pap 30 03/13/17 08:00 30 03/13/17 07:06 85 32 97 Facial 30 03/13/17 07:00 81 32 111/57 97 Bi-pap 30 03/13/17 06:00 96 36 110/60 97 Bi-pap 30 03/13/17 05:21 83 34 98 Facial 30 03/13/17 05:00 86 25 99/60 99 Bi-pap 30 03/13/17 04:00 30 03/13/17 04:00 86 03/13/17 04:00 98.3 74 22 116/53 98 Bi-pap 30 03/13/17 03:00 75 20 99/47 99 Bi-pap 30 03/13/17 02:50 76 28 100 Full Face 30 03/13/17 02:00 82 23 108/50 99 Bi-pap 30 03/13/17 01:10 89 24 97 Full Face 30 03/13/17 01:00 75 25 103/50 99 Bi-pap 30 03/13/17 00:00 98.9 89 21 102/58 100 Bi-pap 30 03/13/17 00:00 30 03/13/17 00:00 85 03/12/17 23:25 90 25 97 Full Face 30 03/12/17 23:00 99 22 99/49 98 Bi-pap 30 03/12/17 22:00 98.7 105 21 106/71 100 Bi-pap 30 03/12/17 21:45 99.7 03/12/17 21:09 113 30 99 Facial 30 03/12/17 21:00 101.4 105 25 96/57 100 Bi-pap 30 03/12/17 20:00 98.3 108 19 101/57 96 Bi-pap 30 03/12/17 20:00 96 03/12/17 20:00 30 03/12/17 19:24 105 23 97 Facial 30 03/12/17 19:00 101 18 92/52 97 Bi-pap 30 03/12/17 18:00 91 18 107/61 97 Bi-pap 30 03/12/17 17:20 81 22 99 Facial 30 03/12/17 17:00 98.9 95 19 105/52 96 Bi-pap 30 03/12/17 16:00 96 03/12/17 16:00 30 03/12/17 16:00 93 20 98/53 98 Bi-pap 30 03/12/17 15:00 91 20 94/60 98 Bi-pap 30 03/12/17 14:55 105 21 94 Facial 30 Intake and Output 03/12/17 03/13/17 19:00 07:00 Intake Total 1164.778 ml 990 ml Output Total 1500 ml 530 ml Balance -335.222 ml 460 ml Intake Free Water 250 ml 350 ml IV Total 324.778 ml 100 ml Tube Feeding 540 ml 540 ml Other 50 ml Output Urine Total 1500 ml 530 ml # Bowel Movements 2 1 Laboratory Tests Test 03/13/17 04:10 03/13/17 08:11 White Blood Count 5.0 K/UL (4.8-10.8) Red Blood Count 3.14 M/UL (4.20-5.40) L Hemoglobin 9.6 G/DL (12.0-16.0) L Hematocrit 28.8 % (37.0-47.0) L Mean Corpuscular Volume 92 FL (80-99) Mean Corpuscular Hemoglobin 30.4 PG (27.0-31.0) Mean Corpuscular Hemoglobin Concent 33.2 G/DL (32.0-36.0) Red Cell Distribution Width 13.1 % (11.6-14.8) Platelet Count 115 K/UL (150-450) L Mean Platelet Volume 7.7 FL (6.5-10.1) Neutrophils (%) (Auto) 56.2 % (45.0-75.0) Lymphocytes (%) (Auto) 31.1 % (20.0-45.0) Monocytes (%) (Auto) 10.3 % (1.0-10.0) H Eosinophils (%) (Auto) 1.7 % (0.0-3.0) Basophils (%) (Auto) 0.7 % (0.0-2.0) Sodium Level 147 mEQ/L (135-145) H Potassium Level 4.0 mEQ/L (3.4-4.9) Chloride Level 109 mEQ/L (98-107) H Carbon Dioxide Level 26 mEQ/L (20-30) Anion Gap 12 (5-15) Blood Urea Nitrogen 37 mg/dL (7-23) H Creatinine 1.0 mg/dL (0.5-0.9) H Estimat Glomerular Filtration Rate mL/min (>60) Glucose Level 121 mg/dL (74-106) H Calcium Level 8.3 mg/dL (8.6-10.2) L Phosphorus Level 1.4 mg/dL (2.5-4.8) L Magnesium Level 1.9 mg/dL (1.7-2.5) Total Bilirubin 0.2 mg/dL (0.0-1.2) Aspartate Amino Transf (AST/SGOT) 23 U/L (5-40) Alanine Aminotransferase (ALT/SGPT) 13 U/L (3-33) Alkaline Phosphatase 53 U/L (35-104) Total Protein 5.7 g/dL (6.6-8.7) L Albumin 2.5 g/dL (3.5-5.2) L Globulin 3.2 g/dL Albumin/Globulin Ratio 0.7 (1.0-2.7) L Arterial Blood pH 7.454 (7.350-7.450) Arterial Blood Partial Pressure CO2 40.0 mmHg (35.0-45.0) Arterial Blood Partial Pressure O2 76.1 mmHg (75.0-100.0) Arterial Blood HCO3 27.4 mmol/L (22.0-26.0) H Arterial Blood Oxygen Saturation 96.2 % (92.0-98.0) Arterial Blood Base Excess 3.3 Khadar Test Positive Objective NECK: Positive JVD. LUNGS: Decreased breath sounds on BiPAP CARDIOVASCULAR: Tachycardic S1-S2 with no gallop or murmur. Old tracheostomy site is closed. ABDOMEN: Soft and status post PEG. EXTREMITIES: She has 1+ pitting edema. JUNIOR CASTILLO Mar 13, 2017 14:20
[2017-03-13] MEDS ORDERED: Sodium Phosphate 20 MM in NS 275 ML IVPB ONE (16:00)
[2017-03-13] MEDS ORDERED: Acetaminophen 650mg/20.3ml GT PRN ×2 (20:30)
[2017-03-13] MEDS ORDERED: DuoNeb 0.5-3(2.5)mg/3ml neb INH PRN (20:30)
[2017-03-14] VITALS: BP 110/77
[2017-03-14] MEDS: NovoLOG Insulin Flexpen SUBQ SCH ×4 (00:31→17:17)
[2017-03-14] MEDS: DuoNeb 0.5-3(2.5)mg/3ml neb INH SCH ×4 (01:11→18:52)
[2017-03-14 04:00] VITALS: BP 121/63
[2017-03-14 05:36] LABS: BASOPHILS % (AUTO) 0.7 % (0.0-2.0); EOSINOPHILS % (AUTO) 1.4 % (0.0-3.0); LYMPHOCYTES % (AUTO) 29.8 % (20.0-45.0); MEAN CORPUSCULAR HEMOGLOBIN 30.2 PG (27.0-31.0); MEAN CORPUSCULAR HGB CONC 33.3 G/DL (32.0-36.0); MEAN CORPUSCULAR VOLUME 91 FL (80-99); MEAN PLATELET VOLUME 7.4 FL (6.5-10.1); MONOCYTES % (AUTO) 8.3 % (1.0-10.0); NEUTROPHILS % (AUTO) 59.8 % (45.0-75.0); PLATELET COUNT 129 K/UL (150-450); RED BLOOD COUNT 3.14 M/UL (4.20-5.40); RED CELL DISTRIBUTION WIDTH 13.1 % (11.6-14.8)
[2017-03-14 06:14] LABS: ALANINE AMINOTRANSFERASE 14 U/L (3-33); ALBUMIN/GLOBULIN RATIO 0.9 (1.0-2.7); ANION GAP 13 (5-15); ASPARTATE AMINO TRANSFERASE 21 U/L (5-40); CALCIUM 8.1 mg/dL (8.6-10.2); CARBON DIOXIDE 27 mEQ/L (20-30); CHLORIDE 108 mEQ/L (98-107); CREATININE 0.8 mg/dL (0.5-0.9); HEMOLYSIS 3; POTASSIUM 3.8 mEQ/L (3.4-4.9); SODIUM 148 mEQ/L (135-145); TOTAL PROTEIN 5.9 g/dL (6.6-8.7)
[2017-03-14] MEDS: metroNIDAZOLE 500mg 100 ML IVPB SCH ×3 (06:38→22:14)
[2017-03-14 08:00] VITALS: BP 121/82
[2017-03-14] MEDS: Dyna-Hex 2% Top Sol 8oz TOPIC SCH (08:13)
[2017-03-14] MEDS: Nystatin Powder 100,000 units/gm 15gm TOPIC SCH ×3 (08:14→17:17)
[2017-03-14] MEDS: Heparin 5000 units/ml inj SUBQ SCH ×2 (08:16→22:17)
[2017-03-14] MEDS: Pantoprazole Inj IVP SCH ×2 (08:16→22:14)
[2017-03-14] MEDS: Docusate 100mg/10ml Liq GT SCH ×2 (08:16→22:14)
--- NOTE | 2017-03-14 10:02 | Pulmonology Progress Note ---
Assessment/Plan Assessment/Plan ASSESSMENT acute respiratory failure requiring BiPAP sepsis probable aspiration PNA acute diastolic CHF hx of CVA with hemiparesis moderate pulmonary HTN dysphagia, G tube anemia Hx of HTN hypotension DM sacral decub st 4 POA PLAN OF CARE KATERINE ABG today and wean from BiPAP as tolerated titrate Fio2 to keep sat above 92% CXR with R pleural effusion and interstitial edema pulmonary toilet ATC and PRN add CPT X 48 hrs fup with CXR restart Lasix (creat stable and BUN trending down), BP allows abx ID follows blood cx negative , sputum cx negative , wound cx + Proteus, VRE-colonized, 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% and RVSP of 45 c/w moderate pulmonary HTN [place] [address] [place] [address] likely 2 to sepsis and respiratory failure, intermittent now strict aspiration precautions, GT feeding, monitor tolerance BS management with current regimen and optimize as needed monitor HH, transfuse Hgb below 8 pain management DVT, GI prophylaxis bowel regimen wound care as per wound nurse recommendations overall prognosis poor case discussed and evaluated by supervising physician Subjective Allergies: Coded Allergies: No Known Allergies (Verified , 08/14/06) Subjective on BiPAP , no tachy sat stable currently afebrile pro BNP trending down but CXR worse with R pleural effusion and interstitial edema Objective Last 24 Hour Vital Signs Date Time Temp Pulse Resp B/P Pulse Ox O2 Delivery O2 Flow Rate FiO2 03/14/17 09:21 83 25 100 Facial 30 03/14/17 08:10 110 03/14/17 08:00 98.6 92 41 121/82 100 Bi-pap 30 03/14/17 07:58 30 03/14/17 07:42 90 30 99 3.0 30 03/14/17 07:27 30 03/14/17 07:27 90 30 99 Facial 30 03/14/17 07:27 90 30 99 3.0 30 03/14/17 05:20 101 24 98 Facial 30 03/14/17 04:00 98.2 90 22 121/63 96 Bi-pap 30 03/14/17 04:00 30 03/14/17 04:00 98 03/14/17 03:03 89 28 96 Facial 30 03/14/17 01:30 86 32 98 Bi-pap 30 03/14/17 01:11 90 30 96 Bi-pap 30 03/14/17 01:08 90 30 96 Facial 30 03/14/17 00:00 30 03/14/17 00:00 81 03/14/17 00:00 97.7 86 26 110/77 96 Bi-pap 30 03/13/17 22:36 111 34 95 Facial 30 03/13/17 21:29 122 33 97 Facial 30 03/13/17 20:00 30 03/13/17 20:00 98.1 90 28 107/61 96 Bi-pap 30 03/13/17 20:00 89 03/13/17 18:59 135 36 95 Facial 30 03/13/17 18:51 Bi-pap 03/13/17 18:50 145 36 97 Bi-pap 03/13/17 18:39 100.0 128 33 129/71 95 Bi-pap 30 03/13/17 18:00 112 30 130/80 95 Bi-pap 30 03/13/17 17:10 112 31 95 Facial 30 03/13/17 17:00 114 33 106/48 94 Bi-pap 30 03/13/17 16:00 114 03/13/17 16:00 30 03/13/17 16:00 99.4 115 33 116/82 95 Bi-pap 30 03/13/17 15:27 110 30 95 Facial 30 03/13/17 15:00 115 32 131/71 99 Bi-pap 30 03/13/17 14:00 112 30 112/61 98 Bi-pap 30 03/13/17 13:15 112 33 100 Bi-pap 30 03/13/17 13:10 109 18 95 Facial 30 03/13/17 13:10 108 22 97 Bi-pap 30 03/13/17 13:00 110 29 103/63 96 Bi-pap 30 03/13/17 12:00 30 03/13/17 12:00 89 03/13/17 12:00 98.4 111 33 95/56 97 Bi-pap 30 03/13/17 11:00 105 20 95 Facial 30 03/13/17 11:00 111 22 94/42 95 Bi-pap 30 03/13/17 10:20 118 33 92 Facial 30 Intake and Output 03/13/17 03/14/17 19:00 07:00 Intake Total 1035.273 ml 690 ml Output Total 440 ml 500 ml Balance 595.273 ml 190 ml Intake Free Water 325 ml 150 ml IV Total 170.273 ml Tube Feeding 540 ml 540 ml Output Urine Total 440 ml 500 ml # Bowel Movements 2 General Appearance: no acute distress, other - bedridden on BiPAP 05/04 30% HEENT: normocephalic, atraumatic, anicteric Respiratory/Chest: crackles/rales Cardiovascular: regular rhythm - occ tachy 100-110, other - PICC LUE intact Abdomen: normal bowel sounds, soft, non tender, other - G tube Neurologic/Psychiatric: other - hemiparesis Laboratory Tests 03/14/17 04:30: White Blood Count 6.0, Red Blood Count 3.14L, Hemoglobin 9.5L, Hematocrit 28.5L , Mean Corpuscular Volume 91, Mean Corpuscular Hemoglobin 30.2, Mean Corpuscular Hemoglobin Concent 33.3, Red Cell Distribution Width 13.1, Platelet Count 129L, Mean Platelet Volume 7.4, Neutrophils (%) (Auto) 59.8, Lymphocytes ( %) (Auto) 29.8, Monocytes (%) (Auto) 8.3, Eosinophils (%) (Auto) 1.4, Basophils (%) (Auto) 0.7, Sodium Level 148H, Potassium Level 3.8, Chloride Level 108H, Carbon Dioxide Level 27, Anion Gap 13, Blood Urea Nitrogen 29H, Creatinine 0.8, Estimat Glomerular Filtration Rate , Glucose Level 101, Calcium Level 8.1L, Magnesium Level 1.9, Total Bilirubin 0.2, Aspartate Amino Transf (AST/SGOT) 21, Alanine Aminotransferase (ALT/SGPT) 14, Alkaline Phosphatase 56, Pro-B-Type Natriuretic Peptide 3908H, Total Protein 5.9L, Albumin 2.8L, Globulin 3.1, Albumin/Globulin Ratio 0.9L Current Medications Medications (Trade) Dose Ordered Sig/Christopher Route PRN Reason Start Time Stop Time Status Last Admin Dose Admin Acetaminophen (Tylenol) 650 mg Q4H PRN GT Mild Pain (Pain Scale 1-3) 03/13/17 20:30 04/12/17 20:29 Acetaminophen (Tylenol) 650 mg Q4H PRN GT fever 03/13/17 20:30 04/12/17 20:29 Albuterol/ Ipratropium (DuoNeb 0.5-3(2.5)mg/3ml) 3 ml Q4H PRN INH Shortness of Breath 03/13/17 20:30 03/18/17 20:29 Albuterol/ Ipratropium (DuoNeb 0.5-3(2.5)mg/3ml) 3 ml Q6HRT INH 03/14/17 01:00 03/19/17 00:59 03/14/17 07:27 Chlorhexidine Gluconate (Tatiana-Hex 2%) 1 applic DAILY TOPIC 03/14/17 09:00 04/13/17 08:59 03/14/17 08:13 Dextrose (Dextrose 50%) STAT PRN IV Hypoglycemia 03/14/17 16:00 04/13/17 15:59 Docusate Sodium (Colace) 100 mg EVERY 12 HOURS GT 03/13/17 21:00 04/12/17 20:59 03/14/17 08:16 Furosemide (Lasix) 40 mg DAILY IV 03/14/17 09:00 04/13/17 08:59 03/14/17 08:13 Heparin Sodium (Porcine) (Heparin 5000 units/ml) 5,000 units EVERY 12 HOURS SUBQ 03/13/17 21:00 04/12/17 20:59 03/14/17 08:16 Insulin Aspart (NovoLOG) EVERY 6 HOURS SUBQ 03/14/17 00:00 04/13/17 00:00 03/14/17 06:42 Levofloxacin 150 ml @ 100 mls/hr Q48H IVPB 03/15/17 01:00 03/22/17 00:59 Magnesium Hydroxide (Mom) 30 ml HSPRN PRN GT Constipation 03/14/17 16:00 04/13/17 15:59 Metronidazole (Flagyl) 100 ml @ 100 mls/hr Q8HR IVPB 03/13/17 22:00 03/20/17 21:59 03/14/17 06:38 Nystatin (Nystop Powder) 1 applic THREE TIMES A DAY TOPIC 03/14/17 09:00 04/13/17 08:59 03/14/17 08:14 Pantoprazole (Protonix) 40 mg EVERY 12 HOURS IVP 03/13/17 21:00 04/12/17 20:59 03/14/17 08:16 Isa Ignacio NP (Vanchtein) Mar 14, 2017 10:02
[2017-03-14] MEDS ORDERED: NS 275ml ONE ×2 (10:21→17:19)
[2017-03-14] MEDS ORDERED: D5NS 1000ml IV ONE (10:21)
[2017-03-14] MEDS ORDERED: 1/2 NS 1000ml IV ONE (10:21)
[2017-03-14 12:00] VITALS: BP 131/59
[2017-03-14 12:28] LABS: ABG BASE EXCESS 4.3; ABG PCO2 38.2 mmHg (35.0-45.0)
--- NOTE | 2017-03-14 13:31 | Infectious Diseases Prog Note ---
Assessment/Plan Assessment/Plan : The patient is a 77-year-old female with Pneumonia , probable resp distress : most likely CHF but underling Pna is a consideration Cxray : Large right, smaller left pleural effusions 03/11 low grade Fever, SP Wnd cx : VRE and GNR ( Colonizer ) CHF Echo : 50% Resp distress CVA with left hemiparesis. HTN Diabetes SP PEG and trach placement PLAN: cont Levaquin and Flagyl, day # 6 / Monitor CBC Monitor BMP Monitor chest x-ray Subjective Allergies: Coded Allergies: No Known Allergies (Verified , 08/14/06) Subjective low grade fever x 1 Objective Vital Signs Last 24 Hour Vital Signs Date Time Temp Pulse Resp B/P Pulse Ox O2 Delivery O2 Flow Rate FiO2 03/14/17 13:16 100 03/14/17 13:16 88 23 93 Non-Rebreather 15.0 100 03/14/17 13:00 96 26 97 15.0 100 03/14/17 12:00 15.0 03/14/17 12:00 91 03/14/17 12:00 99.0 87 34 131/59 97 Bi-pap 30 03/14/17 11:23 99 28 96 Facial 30 03/14/17 09:21 83 25 100 Facial 30 03/14/17 08:10 110 03/14/17 08:00 98.6 92 41 121/82 100 Bi-pap 30 03/14/17 07:58 30 03/14/17 07:42 90 30 99 3.0 30 03/14/17 07:27 30 03/14/17 07:27 90 30 99 Facial 30 03/14/17 07:27 90 30 99 3.0 30 03/14/17 05:20 101 24 98 Facial 30 03/14/17 04:00 98.2 90 22 121/63 96 Bi-pap 30 03/14/17 04:00 30 03/14/17 04:00 98 03/14/17 03:03 89 28 96 Facial 30 03/14/17 01:30 86 32 98 Bi-pap 30 03/14/17 01:11 90 30 96 Bi-pap 30 03/14/17 01:08 90 30 96 Facial 30 03/14/17 00:00 30 03/14/17 00:00 81 03/14/17 00:00 97.7 86 26 110/77 96 Bi-pap 30 03/13/17 22:36 111 34 95 Facial 30 03/13/17 21:29 122 33 97 Facial 30 03/13/17 20:00 30 03/13/17 20:00 98.1 90 28 107/61 96 Bi-pap 30 03/13/17 20:00 89 03/13/17 18:59 135 36 95 Facial 30 03/13/17 18:51 Bi-pap 03/13/17 18:50 145 36 97 Bi-pap 03/13/17 18:39 100.0 128 33 129/71 95 Bi-pap 30 03/13/17 18:00 112 30 130/80 95 Bi-pap 30 03/13/17 17:10 112 31 95 Facial 30 03/13/17 17:00 114 33 106/48 94 Bi-pap 30 03/13/17 16:00 114 03/13/17 16:00 30 03/13/17 16:00 99.4 115 33 116/82 95 Bi-pap 30 03/13/17 15:27 110 30 95 Facial 30 03/13/17 15:00 115 32 131/71 99 Bi-pap 30 03/13/17 14:00 112 30 112/61 98 Bi-pap 30 Height (Feet): 5 Height (Inches): 6.00 Weight (Pounds): 150 HEENT: atraumatic Respiratory/Chest: normal breath sounds Cardiovascular: regular rhythm Abdomen: no organomegaly Laboratory Tests Test 03/14/17 04:30 03/14/17 12:20 White Blood Count 6.0 K/UL (4.8-10.8) Red Blood Count 3.14 M/UL (4.20-5.40) L Hemoglobin 9.5 G/DL (12.0-16.0) L Hematocrit 28.5 % (37.0-47.0) L Mean Corpuscular Volume 91 FL (80-99) Mean Corpuscular Hemoglobin 30.2 PG (27.0-31.0) Mean Corpuscular Hemoglobin Concent 33.3 G/DL (32.0-36.0) Red Cell Distribution Width 13.1 % (11.6-14.8) Platelet Count 129 K/UL (150-450) L Mean Platelet Volume 7.4 FL (6.5-10.1) Neutrophils (%) (Auto) 59.8 % (45.0-75.0) Lymphocytes (%) (Auto) 29.8 % (20.0-45.0) Monocytes (%) (Auto) 8.3 % (1.0-10.0) Eosinophils (%) (Auto) 1.4 % (0.0-3.0) Basophils (%) (Auto) 0.7 % (0.0-2.0) Sodium Level 148 mEQ/L (135-145) H Potassium Level 3.8 mEQ/L (3.4-4.9) Chloride Level 108 mEQ/L (98-107) H Carbon Dioxide Level 27 mEQ/L (20-30) Anion Gap 13 (5-15) Blood Urea Nitrogen 29 mg/dL (7-23) H Creatinine 0.8 mg/dL (0.5-0.9) Estimat Glomerular Filtration Rate mL/min (>60) Glucose Level 101 mg/dL (74-106) Calcium Level 8.1 mg/dL (8.6-10.2) L Magnesium Level 1.9 mg/dL (1.7-2.5) Total Bilirubin 0.2 mg/dL (0.0-1.2) Aspartate Amino Transf (AST/SGOT) 21 U/L (5-40) Alanine Aminotransferase (ALT/SGPT) 14 U/L (3-33) Alkaline Phosphatase 56 U/L (35-104) Pro-B-Type Natriuretic Peptide 3908 pg/mL (0-450) H Total Protein 5.9 g/dL (6.6-8.7) L Albumin 2.8 g/dL (3.5-5.2) L Globulin 3.1 g/dL Albumin/Globulin Ratio 0.9 (1.0-2.7) L Arterial Blood pH 7.482 (7.350-7.450) Arterial Blood Partial Pressure CO2 38.2 mmHg (35.0-45.0) Arterial Blood Partial Pressure O2 66.7 mmHg (75.0-100.0) L Arterial Blood HCO3 27.9 mmol/L (22.0-26.0) H Arterial Blood Oxygen Saturation 94.5 % (92.0-98.0) Arterial Blood Base Excess 4.3 Khadar Test N/a Current Medications Medications (Trade) Dose Ordered Sig/Christopher Route PRN Reason Start Time Stop Time Status Last Admin Dose Admin Acetaminophen (Tylenol) 650 mg Q4H PRN GT Mild Pain (Pain Scale 1-3) 03/13/17 20:30 04/12/17 20:29 Acetaminophen (Tylenol) 650 mg Q4H PRN GT fever 03/13/17 20:30 04/12/17 20:29 Albuterol/ Ipratropium (DuoNeb 0.5-3(2.5)mg/3ml) 3 ml Q4H PRN INH Shortness of Breath 03/13/17 20:30 03/18/17 20:29 Albuterol/ Ipratropium (DuoNeb 0.5-3(2.5)mg/3ml) 3 ml Q6HRT INH 03/14/17 01:00 03/19/17 00:59 03/14/17 13:16 Chlorhexidine Gluconate (Tatiana-Hex 2%) 1 applic DAILY TOPIC 03/14/17 09:00 04/13/17 08:59 03/14/17 08:13 Dextrose (Dextrose 50%) STAT PRN IV Hypoglycemia 03/14/17 16:00 04/13/17 15:59 Docusate Sodium (Colace) 100 mg EVERY 12 HOURS GT 03/13/17 21:00 04/12/17 20:59 03/14/17 08:16 Furosemide (Lasix) 40 mg DAILY IV 03/14/17 09:00 04/13/17 08:59 03/14/17 08:13 Heparin Sodium (Porcine) (Heparin 5000 units/ml) 5,000 units EVERY 12 HOURS SUBQ 03/13/17 21:00 04/12/17 20:59 03/14/17 08:16 Insulin Aspart (NovoLOG) EVERY 6 HOURS SUBQ 03/14/17 00:00 04/13/17 00:00 03/14/17 11:41 Levofloxacin 150 ml @ 100 mls/hr Q48H IVPB 03/15/17 01:00 03/22/17 00:59 Magnesium Hydroxide (Mom) 30 ml HSPRN PRN GT Constipation 03/14/17 16:00 04/13/17 15:59 Metronidazole (Flagyl) 100 ml @ 100 mls/hr Q8HR IVPB 03/13/17 22:00 03/20/17 21:59 03/14/17 13:03 Nystatin (Nystop Powder) 1 applic THREE TIMES A DAY TOPIC 03/14/17 09:00 04/13/17 08:59 03/14/17 13:03 Pantoprazole (Protonix) 40 mg EVERY 12 HOURS IVP 03/13/17 21:00 04/12/17 20:59 03/14/17 08:16 YULI LAWRENCE M.D. Mar 14, 2017 13:31
--- NOTE | 2017-03-14 15:32 | Internal Med Progress Note ---
Subjective Date of Service: Mar 14, 2017 Physician Name Suri Clinton Attending Physician Tereso Toro MD Current Medications Medications (Trade) Dose Ordered Sig/Christopher Route PRN Reason Start Time Stop Time Status Last Admin Dose Admin Acetaminophen (Tylenol) 650 mg Q4H PRN GT Mild Pain (Pain Scale 1-3) 03/13/17 20:30 04/12/17 20:29 Acetaminophen (Tylenol) 650 mg Q4H PRN GT fever 03/13/17 20:30 04/12/17 20:29 Albuterol/ Ipratropium (DuoNeb 0.5-3(2.5)mg/3ml) 3 ml Q4H PRN INH Shortness of Breath 03/13/17 20:30 03/18/17 20:29 Albuterol/ Ipratropium (DuoNeb 0.5-3(2.5)mg/3ml) 3 ml Q6HRT INH 03/14/17 01:00 03/19/17 00:59 03/14/17 13:16 Chlorhexidine Gluconate (Tatiana-Hex 2%) 1 applic DAILY TOPIC 03/14/17 09:00 04/13/17 08:59 03/14/17 08:13 Dextrose (Dextrose 50%) STAT PRN IV Hypoglycemia 03/14/17 16:00 04/13/17 15:59 Docusate Sodium (Colace) 100 mg EVERY 12 HOURS GT 03/13/17 21:00 04/12/17 20:59 03/14/17 08:16 Furosemide (Lasix) 40 mg DAILY IV 03/14/17 09:00 04/13/17 08:59 03/14/17 08:13 Heparin Sodium (Porcine) (Heparin 5000 units/ml) 5,000 units EVERY 12 HOURS SUBQ 03/13/17 21:00 04/12/17 20:59 03/14/17 08:16 Insulin Aspart (NovoLOG) EVERY 6 HOURS SUBQ 03/14/17 00:00 04/13/17 00:00 03/14/17 11:41 Levofloxacin 150 ml @ 100 mls/hr Q48H IVPB 03/15/17 01:00 03/22/17 00:59 Magnesium Hydroxide (Mom) 30 ml HSPRN PRN GT Constipation 03/14/17 16:00 04/13/17 15:59 Metronidazole (Flagyl) 100 ml @ 100 mls/hr Q8HR IVPB 03/13/17 22:00 03/20/17 21:59 03/14/17 13:03 Nystatin (Nystop Powder) 1 applic THREE TIMES A DAY TOPIC 03/14/17 09:00 04/13/17 08:59 03/14/17 13:03 Pantoprazole (Protonix) 40 mg EVERY 12 HOURS IVP 03/13/17 21:00 04/12/17 20:59 03/14/17 08:16 Allergies: Coded Allergies: No Known Allergies (Verified , 08/14/06) ROS Limited/Unobtainable: Yes Subjective 77 YO F admitted with hypotension, fever and congestion. KATERINE. Cover for Int Med-Dr Toro. Currently tolerating non-rebreather Objective Last Vital Signs Date Time Temp Pulse Resp B/P Pulse Ox O2 Delivery O2 Flow Rate FiO2 03/14/17 13:16 100 03/14/17 13:16 88 23 93 Non-Rebreather 15.0 03/14/17 12:00 99.0 131/59 Laboratory Tests Test 03/14/17 04:30 03/14/17 12:20 White Blood Count 6.0 K/UL (4.8-10.8) Red Blood Count 3.14 M/UL (4.20-5.40) L Hemoglobin 9.5 G/DL (12.0-16.0) L Hematocrit 28.5 % (37.0-47.0) L Mean Corpuscular Volume 91 FL (80-99) Mean Corpuscular Hemoglobin 30.2 PG (27.0-31.0) Mean Corpuscular Hemoglobin Concent 33.3 G/DL (32.0-36.0) Red Cell Distribution Width 13.1 % (11.6-14.8) Platelet Count 129 K/UL (150-450) L Mean Platelet Volume 7.4 FL (6.5-10.1) Neutrophils (%) (Auto) 59.8 % (45.0-75.0) Lymphocytes (%) (Auto) 29.8 % (20.0-45.0) Monocytes (%) (Auto) 8.3 % (1.0-10.0) Eosinophils (%) (Auto) 1.4 % (0.0-3.0) Basophils (%) (Auto) 0.7 % (0.0-2.0) Sodium Level 148 mEQ/L (135-145) H Potassium Level 3.8 mEQ/L (3.4-4.9) Chloride Level 108 mEQ/L (98-107) H Carbon Dioxide Level 27 mEQ/L (20-30) Anion Gap 13 (5-15) Blood Urea Nitrogen 29 mg/dL (7-23) H Creatinine 0.8 mg/dL (0.5-0.9) Estimat Glomerular Filtration Rate mL/min (>60) Glucose Level 101 mg/dL (74-106) Calcium Level 8.1 mg/dL (8.6-10.2) L Magnesium Level 1.9 mg/dL (1.7-2.5) Total Bilirubin 0.2 mg/dL (0.0-1.2) Aspartate Amino Transf (AST/SGOT) 21 U/L (5-40) Alanine Aminotransferase (ALT/SGPT) 14 U/L (3-33) Alkaline Phosphatase 56 U/L (35-104) Pro-B-Type Natriuretic Peptide 3908 pg/mL (0-450) H Total Protein 5.9 g/dL (6.6-8.7) L Albumin 2.8 g/dL (3.5-5.2) L Globulin 3.1 g/dL Albumin/Globulin Ratio 0.9 (1.0-2.7) L Arterial Blood pH 7.482 (7.350-7.450) Arterial Blood Partial Pressure CO2 38.2 mmHg (35.0-45.0) Arterial Blood Partial Pressure O2 66.7 mmHg (75.0-100.0) L Arterial Blood HCO3 27.9 mmol/L (22.0-26.0) H Arterial Blood Oxygen Saturation 94.5 % (92.0-98.0) Arterial Blood Base Excess 4.3 Khadar Test N/a Intake and Output 03/13/17 03/14/17 19:00 07:00 Intake Total 1035.273 ml 690 ml Output Total 440 ml 500 ml Balance 595.273 ml 190 ml Intake Free Water 325 ml 150 ml IV Total 170.273 ml Tube Feeding 540 ml 540 ml Output Urine Total 440 ml 500 ml # Bowel Movements 2 Objective General Appearance: mild distress, lethargic, thin EENT: normal ENT inspection Neck: non-tender, normal alignment, supple Cardiovascular: normal peripheral pulses, normal rate, regular rhythm, no gallop/murmur, no JVD Respiratory/Chest: BIPAP; labored, accessory muscle use, respiratory distress, crackles/rales, rhonchi - bilaterally, expiratory wheezing Abdomen: normal bowel sounds, non tender, soft, no organomegaly, no mass Extremities: normal range of motion Skin: normal pigmentation, warm/dry Assessment/Plan Problem List: (1) Hypotension (2) Fever (3) HTN (hypertension) Assessment & Plan: Cont metoprolol (4) Diabetes mellitus type II, uncontrolled (5) CHF (congestive heart failure) Assessment & Plan: See cardiology consult. (6) Hemiparesis affecting left side as late effect of cerebrovascular accident (7) Sepsis Assessment & Plan: possible aspiration; cont flagyl and levaquim per ID and pulmonary (8) Cerebral vascular disease (9) Aspiration pneumonia Assessment & Plan: Cont levaquin and flagyl per ID and pulmonary (10) Pneumonia (11) Acute respiratory failure Assessment & Plan: Continue non-rebreather per pulmonary. Status: not improved Assessment/Plan Prognosis is poor-family aware. SURI CLINTON Mar 14, 2017 15:32
--- NOTE | 2017-03-14 15:39 | Cardiac Electrophysiology PN ---
Assessment/Plan Assessment/Plan 1. Recurrent Long artifactual PMVT/VF.No further artifact after lead repositioning. 2. Congestive heart failure with BNP of more than 18,000. Her echocardiogram showed ejection fraction of 55% with no pericardial effusion.BNP down to 8000.On Lasix 40 iv daily. 3. Sinus tachycardia secondary to respiratory failure and sepsis. The patient is on IV Levaquin. 4. Hypertension.On Lasix 5. Respiratory failure, on BiPAP. 6. Status post percutaneous endoscopic gastrostomy placement for dysphagia. 7. History of cerebrovascular accident with hemiplegia and aphasia. 8. Diabetes, on Januvia. KORTNEY RN Subjective Subjective Transferred out of ICU on BIPAP . In SR with PACs. Objective Last 24 Hour Vital Signs Date Time Temp Pulse Resp B/P Pulse Ox O2 Delivery O2 Flow Rate FiO2 03/14/17 13:16 100 03/14/17 13:16 88 23 93 Non-Rebreather 15.0 100 03/14/17 13:00 96 26 97 15.0 100 03/14/17 12:00 15.0 03/14/17 12:00 91 03/14/17 12:00 99.0 87 34 131/59 97 Bi-pap 30 03/14/17 11:23 99 28 96 Facial 30 03/14/17 09:21 83 25 100 Facial 30 03/14/17 08:10 110 03/14/17 08:00 98.6 92 41 121/82 100 Bi-pap 30 03/14/17 07:58 30 03/14/17 07:42 90 30 99 3.0 30 03/14/17 07:27 30 03/14/17 07:27 90 30 99 Facial 30 03/14/17 07:27 90 30 99 3.0 30 03/14/17 05:20 101 24 98 Facial 30 03/14/17 04:00 98.2 90 22 121/63 96 Bi-pap 30 03/14/17 04:00 30 03/14/17 04:00 98 03/14/17 03:03 89 28 96 Facial 30 03/14/17 01:30 86 32 98 Bi-pap 30 03/14/17 01:11 90 30 96 Bi-pap 30 03/14/17 01:08 90 30 96 Facial 30 03/14/17 00:00 30 03/14/17 00:00 81 03/14/17 00:00 97.7 86 26 110/77 96 Bi-pap 30 03/13/17 22:36 111 34 95 Facial 30 03/13/17 21:29 122 33 97 Facial 30 03/13/17 20:00 30 03/13/17 20:00 98.1 90 28 107/61 96 Bi-pap 30 03/13/17 20:00 89 03/13/17 18:59 135 36 95 Facial 30 03/13/17 18:51 Bi-pap 03/13/17 18:50 145 36 97 Bi-pap 03/13/17 18:39 100.0 128 33 129/71 95 Bi-pap 30 03/13/17 18:00 112 30 130/80 95 Bi-pap 30 03/13/17 17:10 112 31 95 Facial 30 03/13/17 17:00 114 33 106/48 94 Bi-pap 30 03/13/17 16:00 114 03/13/17 16:00 30 03/13/17 16:00 99.4 115 33 116/82 95 Bi-pap 30 Intake and Output 03/13/17 03/14/17 19:00 07:00 Intake Total 1035.273 ml 690 ml Output Total 440 ml 500 ml Balance 595.273 ml 190 ml Intake Free Water 325 ml 150 ml IV Total 170.273 ml Tube Feeding 540 ml 540 ml Output Urine Total 440 ml 500 ml # Bowel Movements 2 Laboratory Tests Test 03/14/17 04:30 03/14/17 12:20 White Blood Count 6.0 K/UL (4.8-10.8) Red Blood Count 3.14 M/UL (4.20-5.40) L Hemoglobin 9.5 G/DL (12.0-16.0) L Hematocrit 28.5 % (37.0-47.0) L Mean Corpuscular Volume 91 FL (80-99) Mean Corpuscular Hemoglobin 30.2 PG (27.0-31.0) Mean Corpuscular Hemoglobin Concent 33.3 G/DL (32.0-36.0) Red Cell Distribution Width 13.1 % (11.6-14.8) Platelet Count 129 K/UL (150-450) L Mean Platelet Volume 7.4 FL (6.5-10.1) Neutrophils (%) (Auto) 59.8 % (45.0-75.0) Lymphocytes (%) (Auto) 29.8 % (20.0-45.0) Monocytes (%) (Auto) 8.3 % (1.0-10.0) Eosinophils (%) (Auto) 1.4 % (0.0-3.0) Basophils (%) (Auto) 0.7 % (0.0-2.0) Sodium Level 148 mEQ/L (135-145) H Potassium Level 3.8 mEQ/L (3.4-4.9) Chloride Level 108 mEQ/L (98-107) H Carbon Dioxide Level 27 mEQ/L (20-30) Anion Gap 13 (5-15) Blood Urea Nitrogen 29 mg/dL (7-23) H Creatinine 0.8 mg/dL (0.5-0.9) Estimat Glomerular Filtration Rate mL/min (>60) Glucose Level 101 mg/dL (74-106) Calcium Level 8.1 mg/dL (8.6-10.2) L Magnesium Level 1.9 mg/dL (1.7-2.5) Total Bilirubin 0.2 mg/dL (0.0-1.2) Aspartate Amino Transf (AST/SGOT) 21 U/L (5-40) Alanine Aminotransferase (ALT/SGPT) 14 U/L (3-33) Alkaline Phosphatase 56 U/L (35-104) Pro-B-Type Natriuretic Peptide 3908 pg/mL (0-450) H Total Protein 5.9 g/dL (6.6-8.7) L Albumin 2.8 g/dL (3.5-5.2) L Globulin 3.1 g/dL Albumin/Globulin Ratio 0.9 (1.0-2.7) L Arterial Blood pH 7.482 (7.350-7.450) Arterial Blood Partial Pressure CO2 38.2 mmHg (35.0-45.0) Arterial Blood Partial Pressure O2 66.7 mmHg (75.0-100.0) L Arterial Blood HCO3 27.9 mmol/L (22.0-26.0) H Arterial Blood Oxygen Saturation 94.5 % (92.0-98.0) Arterial Blood Base Excess 4.3 Khadar Test N/a Objective NECK: Mild JVD. LUNGS: Decreased breath sounds on BiPAP CARDIOVASCULAR: Tachycardic S1-S2 with no gallop or murmur. Old tracheostomy site is closed. ABDOMEN: Soft and status post PEG. EXTREMITIES: 1+ pitting edema. JUNIOR CASTILLO Mar 14, 2017 15:39
[2017-03-14 16:00] VITALS: BP 117/68
[2017-03-14] MEDS ORDERED: Milk of Magnesia 30ml Ud GT PRN (16:00)
[2017-03-14] MEDS ORDERED: Sodium Phosphate 20 MM in NS 275 ML IVPB ONE (16:00)
[2017-03-14] MEDS ORDERED: Tubing IV Secondary IV ONE ×2 (17:06→17:19)
[2017-03-14 20:00] VITALS: BP 110/76
[2017-03-15] VITALS: BP 114/60
[2017-03-15] MEDS: NovoLOG Insulin Flexpen SUBQ SCH ×5 (00:13→23:39)
[2017-03-15] MEDS: DuoNeb 0.5-3(2.5)mg/3ml neb INH SCH ×4 (01:14→19:08)
[2017-03-15 04:00] VITALS: BP 118/58
[2017-03-15 05:52] LABS: BASOPHILS % (AUTO) 0.5 % (0.0-2.0); EOSINOPHILS % (AUTO) 1.3 % (0.0-3.0); LYMPHOCYTES % (AUTO) 25.9 % (20.0-45.0); MEAN CORPUSCULAR HEMOGLOBIN 30.9 PG (27.0-31.0); MEAN CORPUSCULAR HGB CONC 33.8 G/DL (32.0-36.0); MEAN CORPUSCULAR VOLUME 91 FL (80-99); MEAN PLATELET VOLUME 7.6 FL (6.5-10.1); MONOCYTES % (AUTO) 9.4 % (1.0-10.0); NEUTROPHILS % (AUTO) 62.9 % (45.0-75.0); PLATELET COUNT 139 K/UL (150-450); RED BLOOD COUNT 2.91 M/UL (4.20-5.40); RED CELL DISTRIBUTION WIDTH 13.2 % (11.6-14.8); WHITE BLOOD COUNT 6.2 K/UL (4.8-10.8)
[2017-03-15] MEDS: metroNIDAZOLE 500mg 100 ML IVPB SCH (06:03)
[2017-03-15 06:52] LABS: ANION GAP 9 (5-15); CARBON DIOXIDE 31 mEQ/L (20-30); CHLORIDE 108 mEQ/L (98-107); CREATININE 0.7 mg/dL (0.5-0.9); HEMOLYSIS 5; POTASSIUM 3.7 mEQ/L (3.4-4.9); SODIUM 148 mEQ/L (135-145)
[2017-03-15 08:00] VITALS: BP 112/57
--- NOTE | 2017-03-15 08:26 | Diagnostic Imaging Report ---
Indication:pleural effusion Technique: Grayscale and duplex Doppler imaging of the chest performed. Comparison: None Findings: There is a small right pleural effusion demonstrated. Impression: Small right pleural effusion demonstrated
[2017-03-15] MEDS: Docusate 100mg/10ml Liq GT SCH ×2 (08:31→22:36)
[2017-03-15] MEDS: Pantoprazole Inj IVP SCH ×2 (08:31→22:36)
[2017-03-15] MEDS: Dyna-Hex 2% Top Sol 8oz TOPIC SCH (08:31)
[2017-03-15] MEDS: Heparin 5000 units/ml inj SUBQ SCH ×2 (08:33→22:37)
[2017-03-15] MEDS: Nystatin Powder 100,000 units/gm 15gm TOPIC SCH ×3 (08:34→17:24)
--- NOTE | 2017-03-15 08:41 | Infectious Diseases Prog Note ---
Assessment/Plan Assessment/Plan A: Pneumonia s/p treatment Diastolic CHF DM MRSA Colonization Anemia P: Discontinue Levaquin & Flagyl Subjective ROS Limited/Unobtainable: Yes Respiratory: Reports: productive cough Allergies: Coded Allergies: No Known Allergies (Verified , 08/14/06) Objective Vital Signs Last 24 Hour Vital Signs Date Time Temp Pulse Resp B/P Pulse Ox O2 Delivery O2 Flow Rate FiO2 03/15/17 08:00 99.0 86 25 112/57 100 Venturi Mask 55 03/15/17 07:15 96 22 99 Venturi Mask 14.0 55 03/15/17 07:10 55 03/15/17 07:10 Venturi Mask 14.0 55 03/15/17 07:10 86 22 99 Venturi Mask 14.0 55 03/15/17 07:10 100 Venturi Mask 14.0 55 03/15/17 04:00 98.4 90 20 118/58 93 Mechanical Ventilator 03/15/17 04:00 79 03/15/17 01:23 105 24 99 Venturi Mask 14.0 55 03/15/17 01:15 55 03/15/17 01:15 86 22 98 Venturi Mask 14.0 55 03/15/17 00:00 91 03/15/17 00:00 100.0 84 18 114/60 93 Mechanical Ventilator 03/14/17 20:46 Venturi Mask 14.0 55 03/14/17 20:00 99.5 91 18 110/76 91 Venturi Mask 03/14/17 19:47 93 03/14/17 19:01 103 22 98 Venturi Mask 14.0 55 03/14/17 18:52 84 22 99 Non-Rebreather 15.0 100 03/14/17 18:52 100 03/14/17 18:51 99 Non-Rebreather 15.0 100 03/14/17 18:51 Non-Rebreather 15.0 100 03/14/17 16:52 94 26 99 15.0 100 03/14/17 16:00 98.8 91 28 117/68 100 Non-Rebreather 15.0 03/14/17 15:48 104 25 100 15.0 100 03/14/17 15:44 93 03/14/17 13:30 88 23 93 Non-Rebreather 15.0 100 03/14/17 13:16 100 03/14/17 13:16 88 23 93 Non-Rebreather 15.0 100 03/14/17 13:00 96 26 97 15.0 100 03/14/17 12:00 15.0 03/14/17 12:00 91 03/14/17 12:00 99.0 87 34 131/59 97 Bi-pap 30 03/14/17 11:23 99 28 96 Facial 30 03/14/17 09:21 83 25 100 Facial 30 Height (Feet): 5 Height (Inches): 6.00 Weight (Pounds): 148 HEENT: other - nasal trumpet Respiratory/Chest: rhonchi - bilaterally, other - O2 by mask Cardiovascular: normal rate Abdomen: soft, non tender, other - GT feeding Extremities: no edema, other - left arm midline Neurologic/Psychiatric: other - awake Laboratory Tests Test 03/14/17 12:20 03/15/17 03:20 Arterial Blood pH 7.482 (7.350-7.450) Arterial Blood Partial Pressure CO2 38.2 mmHg (35.0-45.0) Arterial Blood Partial Pressure O2 66.7 mmHg (75.0-100.0) L Arterial Blood HCO3 27.9 mmol/L (22.0-26.0) H Arterial Blood Oxygen Saturation 94.5 % (92.0-98.0) Arterial Blood Base Excess 4.3 Khadar Test N/a White Blood Count 6.2 K/UL (4.8-10.8) Red Blood Count 2.91 M/UL (4.20-5.40) L Hemoglobin 9.0 G/DL (12.0-16.0) L Hematocrit 26.6 % (37.0-47.0) L Mean Corpuscular Volume 91 FL (80-99) Mean Corpuscular Hemoglobin 30.9 PG (27.0-31.0) Mean Corpuscular Hemoglobin Concent 33.8 G/DL (32.0-36.0) Red Cell Distribution Width 13.2 % (11.6-14.8) Platelet Count 139 K/UL (150-450) L Mean Platelet Volume 7.6 FL (6.5-10.1) Neutrophils (%) (Auto) 62.9 % (45.0-75.0) Lymphocytes (%) (Auto) 25.9 % (20.0-45.0) Monocytes (%) (Auto) 9.4 % (1.0-10.0) Eosinophils (%) (Auto) 1.3 % (0.0-3.0) Basophils (%) (Auto) 0.5 % (0.0-2.0) Sodium Level 148 mEQ/L (135-145) H Potassium Level 3.7 mEQ/L (3.4-4.9) Chloride Level 108 mEQ/L (98-107) H Carbon Dioxide Level 31 mEQ/L (20-30) H Anion Gap 9 (5-15) Blood Urea Nitrogen 22 mg/dL (7-23) Creatinine 0.7 mg/dL (0.5-0.9) Estimat Glomerular Filtration Rate mL/min (>60) Glucose Level 129 mg/dL (74-106) H Calcium Level 8.0 mg/dL (8.6-10.2) L Current Medications Medications (Trade) Dose Ordered Sig/Christopher Route PRN Reason Start Time Stop Time Status Last Admin Dose Admin Acetaminophen (Tylenol) 650 mg Q4H PRN GT Mild Pain (Pain Scale 1-3) 03/13/17 20:30 04/12/17 20:29 Acetaminophen (Tylenol) 650 mg Q4H PRN GT fever 03/13/17 20:30 04/12/17 20:29 Albuterol/ Ipratropium (DuoNeb 0.5-3(2.5)mg/3ml) 3 ml Q4H PRN INH Shortness of Breath 03/13/17 20:30 03/18/17 20:29 Albuterol/ Ipratropium (DuoNeb 0.5-3(2.5)mg/3ml) 3 ml Q6HRT INH 03/14/17 01:00 03/19/17 00:59 03/15/17 07:33 Chlorhexidine Gluconate (Tatiana-Hex 2%) 1 applic DAILY TOPIC 03/14/17 09:00 04/13/17 08:59 03/15/17 08:31 Dextrose (Dextrose 50%) STAT PRN IV Hypoglycemia 03/14/17 16:00 04/13/17 15:59 Docusate Sodium (Colace) 100 mg EVERY 12 HOURS GT 03/13/17 21:00 04/12/17 20:59 03/15/17 08:31 Furosemide (Lasix) 40 mg DAILY IV 03/14/17 09:00 04/13/17 08:59 03/15/17 08:31 Heparin Sodium (Porcine) (Heparin 5000 units/ml) 5,000 units EVERY 12 HOURS SUBQ 03/13/17 21:00 04/12/17 20:59 03/15/17 08:33 Insulin Aspart (NovoLOG) EVERY 6 HOURS SUBQ 03/14/17 00:00 04/13/17 00:00 03/15/17 06:53 Levofloxacin 150 ml @ 100 mls/hr Q48H IVPB 03/15/17 01:00 03/22/17 00:59 03/15/17 00:15 Magnesium Hydroxide (Mom) 30 ml HSPRN PRN GT Constipation 03/14/17 16:00 04/13/17 15:59 Metronidazole (Flagyl) 100 ml @ 100 mls/hr Q8HR IVPB 03/13/17 22:00 03/20/17 21:59 03/15/17 06:03 Nystatin (Nystop Powder) 1 applic THREE TIMES A DAY TOPIC 03/14/17 09:00 04/13/17 08:59 03/15/17 08:34 Pantoprazole (Protonix) 40 mg EVERY 12 HOURS IVP 03/13/17 21:00 04/12/17 20:59 03/15/17 08:31 NIKI QUAN Mar 15, 2017 08:41
--- NOTE | 2017-03-15 09:51 | Diagnostic Imaging Report ---
Indication: Dyspnea Comparison: March 13, 2017 A single view chest radiograph was obtained. Findings: There are considerable differences in technique compared to the prior examination. There is evidence of interstitial edema with prominent cephalized pulmonary vessels and interstitial densities. There may be a small focus of airspace disease as well in the right perihilar region. Lung volumes are low. The study is limited by rotation. Heart size remains relatively normal. Hazy groundglass opacity is present on the right likely a small pleural effusion. The bones are osteopenic. There is a short PICC line in the left arm terminating in the left axillary region. Findings are unchanged from the prior day. Impression: No significant radiographic change from the previous day. Suspected interstitial edema which may be due to heart failure. Would also consider noncardiogenic causes of pulmonary edema.
[2017-03-15 10:48] LABS: MAGNESIUM 1.9 mg/dL (1.7-2.5); PHOSPHORUS 2.1 mg/dL (2.5-4.8)
[2017-03-15 12:00] VITALS: BP 121/58
[2017-03-15] MEDS: Phospha 250 Neutral tab ORAL SCH ×2 (13:27→17:23)
--- NOTE | 2017-03-15 14:43 | Internal Med Progress Note ---
Subjective Date of Service: Mar 15, 2017 Physician Name Suri Clinton Attending Physician Tereso Toro MD Current Medications Medications (Trade) Dose Ordered Sig/Christopher Route PRN Reason Start Time Stop Time Status Last Admin Dose Admin Acetaminophen (Tylenol) 650 mg Q4H PRN GT Mild Pain (Pain Scale 1-3) 03/13/17 20:30 04/12/17 20:29 Acetaminophen (Tylenol) 650 mg Q4H PRN GT fever 03/13/17 20:30 04/12/17 20:29 Albuterol/ Ipratropium (DuoNeb 0.5-3(2.5)mg/3ml) 3 ml Q4H PRN INH Shortness of Breath 03/13/17 20:30 03/18/17 20:29 Albuterol/ Ipratropium (DuoNeb 0.5-3(2.5)mg/3ml) 3 ml Q6HRT INH 03/14/17 01:00 03/19/17 00:59 03/15/17 13:04 Chlorhexidine Gluconate (Tatiana-Hex 2%) 1 applic DAILY TOPIC 03/14/17 09:00 04/13/17 08:59 03/15/17 08:31 Dextrose (Dextrose 50%) STAT PRN IV Hypoglycemia 03/14/17 16:00 04/13/17 15:59 Docusate Sodium (Colace) 100 mg EVERY 12 HOURS GT 03/13/17 21:00 04/12/17 20:59 03/15/17 08:31 Furosemide (Lasix) 40 mg DAILY IV 03/14/17 09:00 04/13/17 08:59 03/15/17 08:31 Heparin Sodium (Porcine) (Heparin 5000 units/ml) 5,000 units EVERY 12 HOURS SUBQ 03/13/17 21:00 04/12/17 20:59 03/15/17 08:33 Insulin Aspart (NovoLOG) EVERY 6 HOURS SUBQ 03/14/17 00:00 04/13/17 00:00 03/15/17 11:39 Magnesium Hydroxide (Mom) 30 ml HSPRN PRN GT Constipation 03/14/17 16:00 04/13/17 15:59 Nystatin (Nystop Powder) 1 applic THREE TIMES A DAY TOPIC 03/14/17 09:00 04/13/17 08:59 03/15/17 13:27 Pantoprazole (Protonix) 40 mg EVERY 12 HOURS IVP 03/13/17 21:00 04/12/17 20:59 03/15/17 08:31 Phosphorus (Phospha 250 Neutral) 250 mg THREE TIMES A DAY ORAL 03/15/17 13:00 03/16/17 13:00 03/15/17 13:27 Allergies: Coded Allergies: No Known Allergies (Verified , 08/14/06) ROS Limited/Unobtainable: Yes Subjective 77 YO F admitted with hypotension, fever and congestion. KATERINE. Cover for Int Med-Dr Toro. Currently tolerating venturi mask. Objective Last Vital Signs Date Time Temp Pulse Resp B/P Pulse Ox O2 Delivery O2 Flow Rate FiO2 03/15/17 13:03 78 22 100 Venturi Mask 14.0 55 03/15/17 12:00 98.9 121/58 Laboratory Tests Test 03/15/17 03:20 White Blood Count 6.2 K/UL (4.8-10.8) Red Blood Count 2.91 M/UL (4.20-5.40) L Hemoglobin 9.0 G/DL (12.0-16.0) L Hematocrit 26.6 % (37.0-47.0) L Mean Corpuscular Volume 91 FL (80-99) Mean Corpuscular Hemoglobin 30.9 PG (27.0-31.0) Mean Corpuscular Hemoglobin Concent 33.8 G/DL (32.0-36.0) Red Cell Distribution Width 13.2 % (11.6-14.8) Platelet Count 139 K/UL (150-450) L Mean Platelet Volume 7.6 FL (6.5-10.1) Neutrophils (%) (Auto) 62.9 % (45.0-75.0) Lymphocytes (%) (Auto) 25.9 % (20.0-45.0) Monocytes (%) (Auto) 9.4 % (1.0-10.0) Eosinophils (%) (Auto) 1.3 % (0.0-3.0) Basophils (%) (Auto) 0.5 % (0.0-2.0) Sodium Level 148 mEQ/L (135-145) H Potassium Level 3.7 mEQ/L (3.4-4.9) Chloride Level 108 mEQ/L (98-107) H Carbon Dioxide Level 31 mEQ/L (20-30) H Anion Gap 9 (5-15) Blood Urea Nitrogen 22 mg/dL (7-23) Creatinine 0.7 mg/dL (0.5-0.9) Estimat Glomerular Filtration Rate mL/min (>60) Glucose Level 129 mg/dL (74-106) H Calcium Level 8.0 mg/dL (8.6-10.2) L Phosphorus Level 2.1 mg/dL (2.5-4.8) L Magnesium Level 1.9 mg/dL (1.7-2.5) Intake and Output 03/14/17 03/15/17 19:00 07:00 Intake Total 1040 ml 690 ml Output Total 2300 ml 450 ml Balance -1260 ml 240 ml Intake Free Water 300 ml 150 ml IV Total 200 ml Tube Feeding 540 ml 540 ml Output Urine Total 2300 ml 450 ml # Bowel Movements 1 1 Objective General Appearance: mild distress, lethargic, thin EENT: normal ENT inspection Neck: non-tender, normal alignment, supple Cardiovascular: normal peripheral pulses, normal rate, regular rhythm, no gallop/murmur, no JVD Respiratory/Chest: Venturi mask; labored, accessory muscle use, respiratory distress, crackles/rales, rhonchi - bilaterally, expiratory wheezing Abdomen: normal bowel sounds, non tender, soft, no organomegaly, no mass Extremities: normal range of motion Skin: normal pigmentation, warm/dry Assessment/Plan Problem List: (1) Hypotension (2) Fever (3) HTN (hypertension) Assessment & Plan: Cont metoprolol (4) Diabetes mellitus type II, uncontrolled (5) CHF (congestive heart failure) Assessment & Plan: See cardiology consult. (6) Hemiparesis affecting left side as late effect of cerebrovascular accident (7) Sepsis Assessment & Plan: possible aspiration; cont flagyl and levaquim per ID and pulmonary (8) Cerebral vascular disease (9) Aspiration pneumonia Assessment & Plan: Cont levaquin and flagyl per ID and pulmonary (10) Pneumonia (11) Acute respiratory failure Assessment & Plan: Continue venturi mask per pulmonary. Status: not improved Assessment/Plan Prognosis is poor-family aware. SURI CLINTON Mar 15, 2017 14:42
--- NOTE | 2017-03-15 15:01 | Pulmonology Progress Note ---
Assessment/Plan Assessment/Plan ASSESSMENT acute respiratory failure requiring BiPAP sepsis probable aspiration PNA acute diastolic CHF hx of CVA with hemiparesis moderate pulmonary HTN dysphagia, G tube anemia Hx of HTN hypotension DM sacral decub st 4 POA PLAN OF CARE KATERINE was able to be weaned from BiPAP currently on VM titrate Fio2 to keep sat above 92% CXR with R pleural effusion and interstitial edema pulmonary toilet ATC and PRN add CPT X 48 hrs fup with CXR in am Lasix restarted (creat stable and BUN trending down), BP allowed abx ID follows blood cx negative , sputum cx negative , wound cx + Proteus, VRE-colonized, 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% and RVSP of 45 c/w moderate pulmonary [place] [address] [place] [address] likely 2 to sepsis and respiratory failure, resolved strict aspiration precautions, GT feeding, monitor tolerance BS management with current regimen and optimize as needed monitor HH, transfuse Hgb below 8 pain management DVT, GI prophylaxis bowel regimen wound care as per wound nurse recommendations overall prognosis poor case discussed and evaluated by supervising physician Subjective Allergies: Coded Allergies: No Known Allergies (Verified , 08/14/06) Subjective weaned from BiPAP on VM 55% no signs of respiratory distress, stable pulse oximetry currently afebrile pro BNP trending down but CXR on 03/14 worse with R pleural effusion and interstitial edema re -started on diuretic Objective Last 24 Hour Vital Signs Date Time Temp Pulse Resp B/P Pulse Ox O2 Delivery O2 Flow Rate FiO2 03/15/17 13:03 78 22 100 Venturi Mask 14.0 55 03/15/17 13:00 84 20 100 Venturi Mask 14.0 55 03/15/17 13:00 55 03/15/17 12:00 76 03/15/17 12:00 98.9 97 20 121/58 99 Venturi Mask 55 03/15/17 08:00 101 03/15/17 08:00 99.0 86 25 112/57 100 Venturi Mask 55 03/15/17 07:15 96 22 99 Venturi Mask 14.0 55 03/15/17 07:10 55 03/15/17 07:10 Venturi Mask 14.0 55 03/15/17 07:10 86 22 99 Venturi Mask 14.0 55 03/15/17 07:10 100 Venturi Mask 14.0 55 03/15/17 04:00 98.4 90 20 118/58 93 Mechanical Ventilator 03/15/17 04:00 79 03/15/17 01:23 105 24 99 Venturi Mask 14.0 55 03/15/17 01:15 55 03/15/17 01:15 86 22 98 Venturi Mask 14.0 55 03/15/17 00:00 91 03/15/17 00:00 100.0 84 18 114/60 93 Mechanical Ventilator 03/14/17 20:46 Venturi Mask 14.0 55 03/14/17 20:00 99.5 91 18 110/76 91 Venturi Mask 03/14/17 19:47 93 03/14/17 19:01 103 22 98 Venturi Mask 14.0 55 03/14/17 18:52 84 22 99 Non-Rebreather 15.0 100 03/14/17 18:52 100 03/14/17 18:51 99 Non-Rebreather 15.0 100 03/14/17 18:51 Non-Rebreather 15.0 100 03/14/17 16:52 94 26 99 15.0 100 03/14/17 16:00 98.8 91 28 117/68 100 Non-Rebreather 15.0 03/14/17 15:48 104 25 100 15.0 100 03/14/17 15:44 93 Intake and Output 03/14/17 03/15/17 19:00 07:00 Intake Total 1040 ml 690 ml Output Total 2300 ml 450 ml Balance -1260 ml 240 ml Intake Free Water 300 ml 150 ml IV Total 200 ml Tube Feeding 540 ml 540 ml Output Urine Total 2300 ml 450 ml # Bowel Movements 1 1 Objective General Appearance: no acute distress, bedridden on VM 55% HEENT: normocephalic, atraumatic, anicteric Respiratory/Chest: crackles/rales Cardiovascular: regular rate and rhythm , SR with frequent PAC on monitor, PICC LUE intact Abdomen: normal bowel sounds, soft, non tender, G tube Neurologic/Psychiatric: hemiparesis Laboratory Tests 03/15/17 03:20: White Blood Count 6.2, Red Blood Count 2.91L, Hemoglobin 9.0L, Hematocrit 26.6L , Mean Corpuscular Volume 91, Mean Corpuscular Hemoglobin 30.9, Mean Corpuscular Hemoglobin Concent 33.8, Red Cell Distribution Width 13.2, Platelet Count 139L, Mean Platelet Volume 7.6, Neutrophils (%) (Auto) 62.9, Lymphocytes ( %) (Auto) 25.9, Monocytes (%) (Auto) 9.4, Eosinophils (%) (Auto) 1.3, Basophils (%) (Auto) 0.5, Sodium Level 148H, Potassium Level 3.7, Chloride Level 108H, Carbon Dioxide Level 31H, Anion Gap 9, Blood Urea Nitrogen 22, Creatinine 0.7, Estimat Glomerular Filtration Rate , Glucose Level 129H, Calcium Level 8.0L, Phosphorus Level 2.1L, Magnesium Level 1.9 Current Medications Medications (Trade) Dose Ordered Sig/Christopher Route PRN Reason Start Time Stop Time Status Last Admin Dose Admin Acetaminophen (Tylenol) 650 mg Q4H PRN GT Mild Pain (Pain Scale 1-3) 03/13/17 20:30 04/12/17 20:29 Acetaminophen (Tylenol) 650 mg Q4H PRN GT fever 03/13/17 20:30 04/12/17 20:29 Albuterol/ Ipratropium (DuoNeb 0.5-3(2.5)mg/3ml) 3 ml Q4H PRN INH Shortness of Breath 03/13/17 20:30 03/18/17 20:29 Albuterol/ Ipratropium (DuoNeb 0.5-3(2.5)mg/3ml) 3 ml Q6HRT INH 03/14/17 01:00 03/19/17 00:59 03/15/17 13:04 Chlorhexidine Gluconate (Tatiana-Hex 2%) 1 applic DAILY TOPIC 03/14/17 09:00 04/13/17 08:59 03/15/17 08:31 Dextrose (Dextrose 50%) STAT PRN IV Hypoglycemia 03/14/17 16:00 04/13/17 15:59 Docusate Sodium (Colace) 100 mg EVERY 12 HOURS GT 03/13/17 21:00 04/12/17 20:59 03/15/17 08:31 Furosemide (Lasix) 40 mg DAILY IV 03/14/17 09:00 04/13/17 08:59 03/15/17 08:31 Heparin Sodium (Porcine) (Heparin 5000 units/ml) 5,000 units EVERY 12 HOURS SUBQ 03/13/17 21:00 04/12/17 20:59 03/15/17 08:33 Insulin Aspart (NovoLOG) EVERY 6 HOURS SUBQ 03/14/17 00:00 04/13/17 00:00 03/15/17 11:39 Magnesium Hydroxide (Mom) 30 ml HSPRN PRN GT Constipation 03/14/17 16:00 04/13/17 15:59 Nystatin (Nystop Powder) 1 applic THREE TIMES A DAY TOPIC 03/14/17 09:00 04/13/17 08:59 03/15/17 13:27 Pantoprazole (Protonix) 40 mg EVERY 12 HOURS IVP 03/13/17 21:00 04/12/17 20:59 03/15/17 08:31 Phosphorus (Phospha 250 Neutral) 250 mg THREE TIMES A DAY ORAL 03/15/17 13:00 03/16/17 13:00 03/15/17 13:27 Mateus (Iliana)Isa NP Mar 15, 2017 15:01
[2017-03-15] MEDS ORDERED: NS 275ml ONE (15:42)
[2017-03-15 16:00] VITALS: BP 109/55
[2017-03-15 20:00] VITALS: BP 102/59
[2017-03-16] VITALS (7 sets, daily range): BP systolic 97–128; BP diastolic 54–80
[2017-03-16] MEDS: DuoNeb 0.5-3(2.5)mg/3ml neb INH SCH ×4 (01:06→20:02)
[2017-03-16 05:59] LABS: BASOPHILS % (AUTO) 0.5 % (0.0-2.0); EOSINOPHILS % (AUTO) 1.6 % (0.0-3.0); LYMPHOCYTES % (AUTO) 21.8 % (20.0-45.0); MEAN CORPUSCULAR HEMOGLOBIN 30.1 PG (27.0-31.0); MEAN CORPUSCULAR HGB CONC 32.4 G/DL (32.0-36.0); MEAN CORPUSCULAR VOLUME 93 FL (80-99); MEAN PLATELET VOLUME 6.4 FL (6.5-10.1); MONOCYTES % (AUTO) 8.4 % (1.0-10.0); NEUTROPHILS % (AUTO) 67.7 % (45.0-75.0); PLATELET COUNT 190 K/UL (150-450); RED CELL DISTRIBUTION WIDTH 13.4 % (11.6-14.8); WHITE BLOOD COUNT 6.9 K/UL (4.8-10.8)
[2017-03-16 06:19] LABS: ANION GAP 7 (5-15); CALCIUM 8.5 mg/dL (8.6-10.2); CARBON DIOXIDE 35 mEQ/L (20-30); CHLORIDE 107 mEQ/L (98-107); CREATININE 0.8 mg/dL (0.5-0.9); HEMOLYSIS 3; SODIUM 149 mEQ/L (135-145)
[2017-03-16] MEDS: NovoLOG Insulin Flexpen SUBQ SCH ×3 (06:26→17:40)
[2017-03-16] MEDS: Docusate 100mg/10ml Liq GT SCH ×2 (08:34→21:04)
[2017-03-16] MEDS: Pantoprazole Inj IVP SCH ×2 (08:35→21:04)
[2017-03-16] MEDS: Phospha 250 Neutral tab ORAL SCH ×2 (08:35→12:26)
[2017-03-16] MEDS: Nystatin Powder 100,000 units/gm 15gm TOPIC SCH ×3 (08:36→17:40)
[2017-03-16] MEDS: Dyna-Hex 2% Top Sol 8oz TOPIC SCH (08:36)
[2017-03-16] MEDS: Heparin 5000 units/ml inj SUBQ SCH ×2 (08:52→21:05)
--- NOTE | 2017-03-16 10:32 | Infectious Diseases Prog Note ---
Assessment/Plan Assessment/Plan : The patient is a 77-year-old female with Pneumonia , probable resp distress : most likely CHF but underling Pna is a consideration Cxray : Large right, smaller left pleural effusions 03/11 low grade Fever, SP Wnd cx : VRE and GNR ( Colonizer ) CHF Echo : 50% Resp distress CVA with left hemiparesis. HTN Diabetes SP PEG and trach placement PLAN: monitor pt off of Ab Rx 03/15 SP Levaquin and Flagyl, day # 7 Monitor CBC Monitor BMP Monitor chest x-ray Subjective Constitutional: Denies: anorexia, chills, drenching sweats, fatigue, fever, no symptoms, other Allergies: Coded Allergies: No Known Allergies (Verified , 08/14/06) Subjective low grade fever x 1 Objective Vital Signs Last 24 Hour Vital Signs Date Time Temp Pulse Resp B/P Pulse Ox O2 Delivery O2 Flow Rate FiO2 03/16/17 08:00 98.2 89 20 116/63 99 Venturi Mask 50 03/16/17 07:36 Venturi Mask 14.0 55 03/16/17 07:36 99 Venturi Mask 14.0 55 03/16/17 06:35 71 20 100 Venturi Mask 14.0 55 03/16/17 06:30 71 20 99 Venturi Mask 14.0 55 03/16/17 06:30 55 03/16/17 04:00 79 03/16/17 04:00 98.2 86 20 103/58 99 Venturi Mask 50 03/16/17 02:49 98.2 03/16/17 01:14 95 22 99 Venturi Mask 14.0 55 03/16/17 01:05 90 22 97 Venturi Mask 14.0 55 03/16/17 01:05 55 03/16/17 00:00 85 03/16/17 00:00 99.0 87 20 97/54 99 Venturi Mask 50 03/15/17 20:00 98.2 94 20 102/59 98 Venturi Mask 55 03/15/17 20:00 96 03/15/17 19:16 108 22 98 Venturi Mask 14.0 55 03/15/17 19:07 55 03/15/17 19:07 Venturi Mask 14.0 55 03/15/17 19:07 97 Venturi Mask 14.0 55 03/15/17 19:07 103 22 96 Venturi Mask 14.0 55 03/15/17 16:00 99.1 92 19 109/55 98 Venturi Mask 55 03/15/17 16:00 83 03/15/17 13:03 78 22 100 Venturi Mask 14.0 55 03/15/17 13:00 84 20 100 Venturi Mask 14.0 55 03/15/17 13:00 55 03/15/17 12:00 76 03/15/17 12:00 98.9 97 20 121/58 99 Venturi Mask 55 Height (Feet): 5 Height (Inches): 6.00 Weight (Pounds): 147 HEENT: anicteric Respiratory/Chest: normal breath sounds Cardiovascular: regular rhythm Abdomen: non distended Laboratory Tests Test 03/16/17 04:15 White Blood Count 6.9 K/UL (4.8-10.8) Red Blood Count 2.90 M/UL (4.20-5.40) L Hemoglobin 8.7 G/DL (12.0-16.0) L Hematocrit 27.0 % (37.0-47.0) L Mean Corpuscular Volume 93 FL (80-99) Mean Corpuscular Hemoglobin 30.1 PG (27.0-31.0) Mean Corpuscular Hemoglobin Concent 32.4 G/DL (32.0-36.0) Red Cell Distribution Width 13.4 % (11.6-14.8) Platelet Count 190 K/UL (150-450) Mean Platelet Volume 6.4 FL (6.5-10.1) L Neutrophils (%) (Auto) 67.7 % (45.0-75.0) Lymphocytes (%) (Auto) 21.8 % (20.0-45.0) Monocytes (%) (Auto) 8.4 % (1.0-10.0) Eosinophils (%) (Auto) 1.6 % (0.0-3.0) Basophils (%) (Auto) 0.5 % (0.0-2.0) Sodium Level 149 mEQ/L (135-145) H Potassium Level 4.0 mEQ/L (3.4-4.9) Chloride Level 107 mEQ/L (98-107) Carbon Dioxide Level 35 mEQ/L (20-30) H Anion Gap 7 (5-15) Blood Urea Nitrogen 22 mg/dL (7-23) Creatinine 0.8 mg/dL (0.5-0.9) Estimat Glomerular Filtration Rate mL/min (>60) Glucose Level 136 mg/dL (74-106) H Calcium Level 8.5 mg/dL (8.6-10.2) L Current Medications Medications (Trade) Dose Ordered Sig/Christopher Route PRN Reason Start Time Stop Time Status Last Admin Dose Admin Acetaminophen (Tylenol) 650 mg Q4H PRN GT Mild Pain (Pain Scale 1-3) 03/13/17 20:30 04/12/17 20:29 03/16/17 02:19 Acetaminophen (Tylenol) 650 mg Q4H PRN GT fever 03/13/17 20:30 04/12/17 20:29 Albuterol/ Ipratropium (DuoNeb 0.5-3(2.5)mg/3ml) 3 ml Q4H PRN INH Shortness of Breath 03/13/17 20:30 03/18/17 20:29 Albuterol/ Ipratropium (DuoNeb 0.5-3(2.5)mg/3ml) 3 ml Q6HRT INH 03/14/17 01:00 03/19/17 00:59 03/16/17 06:39 Chlorhexidine Gluconate (Tatiana-Hex 2%) 1 applic DAILY TOPIC 03/14/17 09:00 04/13/17 08:59 03/16/17 08:36 Dextrose (Dextrose 50%) STAT PRN IV Hypoglycemia 03/14/17 16:00 04/13/17 15:59 Docusate Sodium (Colace) 100 mg EVERY 12 HOURS GT 03/13/17 21:00 04/12/17 20:59 03/16/17 08:34 Furosemide (Lasix) 40 mg DAILY IV 03/14/17 09:00 04/13/17 08:59 03/16/17 08:35 Heparin Sodium (Porcine) (Heparin 5000 units/ml) 5,000 units EVERY 12 HOURS SUBQ 03/13/17 21:00 04/12/17 20:59 03/16/17 08:52 Insulin Aspart (NovoLOG) EVERY 6 HOURS SUBQ 03/14/17 00:00 04/13/17 00:00 03/16/17 06:26 Magnesium Hydroxide (Mom) 30 ml HSPRN PRN GT Constipation 03/14/17 16:00 04/13/17 15:59 Nystatin (Nystop Powder) 1 applic THREE TIMES A DAY TOPIC 03/14/17 09:00 04/13/17 08:59 03/16/17 08:36 Pantoprazole (Protonix) 40 mg EVERY 12 HOURS IVP 03/13/17 21:00 04/12/17 20:59 03/16/17 08:35 Phosphorus (Phospha 250 Neutral) 250 mg THREE TIMES A DAY ORAL 03/15/17 13:00 03/16/17 13:00 03/16/17 08:35 YULI LAWRENCE M.D. Mar 16, 2017 10:32
--- NOTE | 2017-03-16 12:08 | Pulmonology Progress Note ---
Assessment/Plan Problems: (1) Sepsis (2) Diabetes (3) Cerebral vascular disease (4) Feeding by G-tube (5) Hemiparesis affecting left side as late effect of cerebrovascular accident Assessment/Plan US of chest showed small effusion repeat cxr and bnp and the rest of the labs in am off ABX, hemodynamically stable dvt prophylaxis tolerating diet. taper down oxygen med/surg dc planning Subjective ROS Limited/Unobtainable: No Interval Events: looks comfortable Constitutional: Reports: no symptoms Allergies: Coded Allergies: No Known Allergies (Verified , 08/14/06) Objective Last 24 Hour Vital Signs Date Time Temp Pulse Resp B/P Pulse Ox O2 Delivery O2 Flow Rate FiO2 03/16/17 10:35 73 20 100 Venturi Mask 14.0 55 03/16/17 10:30 75 20 99 Venturi Mask 14.0 55 03/16/17 10:30 55 03/16/17 08:00 98.2 89 20 116/63 99 Venturi Mask 50 03/16/17 07:36 Venturi Mask 14.0 55 03/16/17 07:36 99 Venturi Mask 14.0 55 03/16/17 06:35 71 20 100 Venturi Mask 14.0 55 03/16/17 06:30 71 20 99 Venturi Mask 14.0 55 03/16/17 06:30 55 03/16/17 04:00 79 03/16/17 04:00 98.2 86 20 103/58 99 Venturi Mask 50 03/16/17 02:49 98.2 03/16/17 01:14 95 22 99 Venturi Mask 14.0 55 03/16/17 01:05 90 22 97 Venturi Mask 14.0 55 03/16/17 01:05 55 03/16/17 00:00 85 03/16/17 00:00 99.0 87 20 97/54 99 Venturi Mask 50 03/15/17 20:00 98.2 94 20 102/59 98 Venturi Mask 55 03/15/17 20:00 96 03/15/17 19:16 108 22 98 Venturi Mask 14.0 55 03/15/17 19:07 55 03/15/17 19:07 Venturi Mask 14.0 55 03/15/17 19:07 97 Venturi Mask 14.0 55 03/15/17 19:07 103 22 96 Venturi Mask 14.0 55 03/15/17 16:00 99.1 92 19 109/55 98 Venturi Mask 55 03/15/17 16:00 83 03/15/17 13:03 78 22 100 Venturi Mask 14.0 55 03/15/17 13:00 84 20 100 Venturi Mask 14.0 55 03/15/17 13:00 55 Intake and Output 03/15/17 03/16/17 19:00 07:00 Intake Total 990 ml 690 ml Output Total 1450 ml 450 ml Balance -460 ml 240 ml Intake Free Water 200 ml 150 ml IV Total 100 ml Tube Feeding 540 ml 540 ml Other 150 ml Output Urine Total 1450 ml 450 ml # Bowel Movements 2 General Appearance: WD/WN HEENT: normocephalic, atraumatic Respiratory/Chest: chest wall non-tender, lungs clear Cardiovascular: normal peripheral pulses, regular rhythm Abdomen: normal bowel sounds, soft, non tender Genitourinary: normal external genitalia Extremities: no cyanosis Skin: no rash Neurologic/Psychiatric: 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 grossly normal, abnormal gait, normal mood/ affect Musculoskeletal: normal muscle bulk Laboratory Tests 03/16/17 04:15: White Blood Count 6.9, Red Blood Count 2.90L, Hemoglobin 8.7L, Hematocrit 27.0L , Mean Corpuscular Volume 93, Mean Corpuscular Hemoglobin 30.1, Mean Corpuscular Hemoglobin Concent 32.4, Red Cell Distribution Width 13.4, Platelet Count 190, Mean Platelet Volume 6.4L, Neutrophils (%) (Auto) 67.7, Lymphocytes ( %) (Auto) 21.8, Monocytes (%) (Auto) 8.4, Eosinophils (%) (Auto) 1.6, Basophils (%) (Auto) 0.5, Sodium Level 149H, Potassium Level 4.0, Chloride Level 107, Carbon Dioxide Level 35H, Anion Gap 7, Blood Urea Nitrogen 22, Creatinine 0.8, Estimat Glomerular Filtration Rate , Glucose Level 136H, Calcium Level 8.5L Current Medications Medications (Trade) Dose Ordered Sig/Christopher Route PRN Reason Start Time Stop Time Status Last Admin Dose Admin Acetaminophen (Tylenol) 650 mg Q4H PRN GT Mild Pain (Pain Scale 1-3) 03/13/17 20:30 04/12/17 20:29 03/16/17 02:19 Acetaminophen (Tylenol) 650 mg Q4H PRN GT fever 03/13/17 20:30 04/12/17 20:29 Albuterol/ Ipratropium (DuoNeb 0.5-3(2.5)mg/3ml) 3 ml Q4H PRN INH Shortness of Breath 03/13/17 20:30 03/18/17 20:29 Albuterol/ Ipratropium (DuoNeb 0.5-3(2.5)mg/3ml) 3 ml Q6HRT INH 03/14/17 01:00 03/19/17 00:59 03/16/17 10:47 Chlorhexidine Gluconate (Tatiana-Hex 2%) 1 applic DAILY TOPIC 03/14/17 09:00 04/13/17 08:59 03/16/17 08:36 Dextrose (Dextrose 50%) STAT PRN IV Hypoglycemia 03/14/17 16:00 04/13/17 15:59 Docusate Sodium (Colace) 100 mg EVERY 12 HOURS GT 03/13/17 21:00 04/12/17 20:59 03/16/17 08:34 Furosemide (Lasix) 40 mg DAILY IV 03/14/17 09:00 04/13/17 08:59 03/16/17 08:35 Heparin Sodium (Porcine) (Heparin 5000 units/ml) 5,000 units EVERY 12 HOURS SUBQ 03/13/17 21:00 04/12/17 20:59 03/16/17 08:52 Insulin Aspart (NovoLOG) EVERY 6 HOURS SUBQ 03/14/17 00:00 04/13/17 00:00 03/16/17 06:26 Magnesium Hydroxide (Mom) 30 ml HSPRN PRN GT Constipation 03/14/17 16:00 04/13/17 15:59 Nystatin (Nystop Powder) 1 applic THREE TIMES A DAY TOPIC 03/14/17 09:00 04/13/17 08:59 03/16/17 08:36 Pantoprazole (Protonix) 40 mg EVERY 12 HOURS IVP 03/13/17 21:00 04/12/17 20:59 03/16/17 08:35 Phosphorus (Phospha 250 Neutral) 250 mg THREE TIMES A DAY ORAL 03/15/17 13:00 03/16/17 13:00 03/16/17 08:35 MARIANELA HARRY Mar 16, 2017 12:08
--- NOTE | 2017-03-16 12:34 | Internal Med Progress Note ---
Subjective Date of Service: Mar 16, 2017 Physician Name Suri Clinton Attending Physician Tereso Toro MD Current Medications Medications (Trade) Dose Ordered Sig/Christopher Route PRN Reason Start Time Stop Time Status Last Admin Dose Admin Acetaminophen (Tylenol) 650 mg Q4H PRN GT Mild Pain (Pain Scale 1-3) 03/13/17 20:30 04/12/17 20:29 03/16/17 02:19 Acetaminophen (Tylenol) 650 mg Q4H PRN GT fever 03/13/17 20:30 04/12/17 20:29 Albuterol/ Ipratropium (DuoNeb 0.5-3(2.5)mg/3ml) 3 ml Q4H PRN INH Shortness of Breath 03/13/17 20:30 03/18/17 20:29 Albuterol/ Ipratropium (DuoNeb 0.5-3(2.5)mg/3ml) 3 ml Q6HRT INH 03/14/17 01:00 03/19/17 00:59 03/16/17 10:47 Chlorhexidine Gluconate (Tatiana-Hex 2%) 1 applic DAILY TOPIC 03/14/17 09:00 04/13/17 08:59 03/16/17 08:36 Dextrose (Dextrose 50%) STAT PRN IV Hypoglycemia 03/14/17 16:00 04/13/17 15:59 Docusate Sodium (Colace) 100 mg EVERY 12 HOURS GT 03/13/17 21:00 04/12/17 20:59 03/16/17 08:34 Furosemide (Lasix) 40 mg DAILY IV 03/14/17 09:00 04/13/17 08:59 03/16/17 08:35 Heparin Sodium (Porcine) (Heparin 5000 units/ml) 5,000 units EVERY 12 HOURS SUBQ 03/13/17 21:00 04/12/17 20:59 03/16/17 08:52 Insulin Aspart (NovoLOG) EVERY 6 HOURS SUBQ 03/14/17 00:00 04/13/17 00:00 03/16/17 12:25 Magnesium Hydroxide (Mom) 30 ml HSPRN PRN GT Constipation 03/14/17 16:00 04/13/17 15:59 Nystatin (Nystop Powder) 1 applic THREE TIMES A DAY TOPIC 03/14/17 09:00 04/13/17 08:59 03/16/17 12:26 Pantoprazole (Protonix) 40 mg EVERY 12 HOURS IVP 03/13/17 21:00 04/12/17 20:59 03/16/17 08:35 Phosphorus (Phospha 250 Neutral) 250 mg THREE TIMES A DAY ORAL 03/15/17 13:00 03/16/17 13:00 03/16/17 12:26 Allergies: Coded Allergies: No Known Allergies (Verified , 08/14/06) ROS Limited/Unobtainable: Yes Subjective 77 YO F admitted with hypotension, fever and congestion. KATERINE. Cover for Int Med-Dr Toro. Currently tolerating venturi mask. Objective Last Vital Signs Date Time Temp Pulse Resp B/P Pulse Ox O2 Delivery O2 Flow Rate FiO2 03/16/17 10:35 73 20 100 Venturi Mask 14.0 55 03/16/17 08:00 98.2 116/63 Laboratory Tests Test 03/16/17 04:15 White Blood Count 6.9 K/UL (4.8-10.8) Red Blood Count 2.90 M/UL (4.20-5.40) L Hemoglobin 8.7 G/DL (12.0-16.0) L Hematocrit 27.0 % (37.0-47.0) L Mean Corpuscular Volume 93 FL (80-99) Mean Corpuscular Hemoglobin 30.1 PG (27.0-31.0) Mean Corpuscular Hemoglobin Concent 32.4 G/DL (32.0-36.0) Red Cell Distribution Width 13.4 % (11.6-14.8) Platelet Count 190 K/UL (150-450) Mean Platelet Volume 6.4 FL (6.5-10.1) L Neutrophils (%) (Auto) 67.7 % (45.0-75.0) Lymphocytes (%) (Auto) 21.8 % (20.0-45.0) Monocytes (%) (Auto) 8.4 % (1.0-10.0) Eosinophils (%) (Auto) 1.6 % (0.0-3.0) Basophils (%) (Auto) 0.5 % (0.0-2.0) Sodium Level 149 mEQ/L (135-145) H Potassium Level 4.0 mEQ/L (3.4-4.9) Chloride Level 107 mEQ/L (98-107) Carbon Dioxide Level 35 mEQ/L (20-30) H Anion Gap 7 (5-15) Blood Urea Nitrogen 22 mg/dL (7-23) Creatinine 0.8 mg/dL (0.5-0.9) Estimat Glomerular Filtration Rate mL/min (>60) Glucose Level 136 mg/dL (74-106) H Calcium Level 8.5 mg/dL (8.6-10.2) L Intake and Output 03/15/17 03/16/17 19:00 07:00 Intake Total 990 ml 690 ml Output Total 1450 ml 450 ml Balance -460 ml 240 ml Intake Free Water 200 ml 150 ml IV Total 100 ml Tube Feeding 540 ml 540 ml Other 150 ml Output Urine Total 1450 ml 450 ml # Bowel Movements 2 Objective General Appearance: mild distress, lethargic, thin EENT: normal ENT inspection Neck: non-tender, normal alignment, supple Cardiovascular: normal peripheral pulses, normal rate, regular rhythm, no gallop/murmur, no JVD Respiratory/Chest: Venturi mask; labored, accessory muscle use, respiratory distress, crackles/rales, rhonchi - bilaterally, expiratory wheezing Abdomen: normal bowel sounds, non tender, soft, no organomegaly, no mass Extremities: normal range of motion Skin: normal pigmentation, warm/dry Assessment/Plan Problem List: (1) Hypotension (2) Fever (3) HTN (hypertension) Assessment & Plan: Cont metoprolol (4) Diabetes mellitus type II, uncontrolled (5) CHF (congestive heart failure) Assessment & Plan: See cardiology consult. (6) Hemiparesis affecting left side as late effect of cerebrovascular accident (7) Sepsis Assessment & Plan: possible aspiration; cont flagyl and levaquim per ID and pulmonary (8) Cerebral vascular disease (9) Aspiration pneumonia Assessment & Plan: D/C levaquin and flagyl per ID and pulmonary (10) Pneumonia (11) Acute respiratory failure Assessment & Plan: Continue venturi mask per pulmonary. Status: not improved Assessment/Plan Prognosis is poor-family aware. SURI CLINTON Mar 16, 2017 12:34
--- NOTE | 2017-03-16 12:39 | Diagnostic Imaging Report ---
Indication: Dyspnea Comparison: 03/14/17 A single view chest radiograph was obtained. Findings: Lung volumes are smaller on the current study. Hazy right basilar opacity consistent with pleural effusion. Heart is borderline enlarged on the current study and relatively stable. Interstitial edema is present. Accounting for lower lung volumes, there are is probably little to no change. IVC filter and a short left-sided PICC line again noted. Impression: Interstitial pulmonary edema. Right pleural effusion
[2017-03-16] MEDS ORDERED: Acetaminophen 650mg/20.3ml GT PRN ×2 (15:30)
[2017-03-16] MEDS ORDERED: DuoNeb 0.5-3(2.5)mg/3ml neb INH PRN (15:30)
[2017-03-16] MEDS ORDERED: Milk of Magnesia 30ml Ud GT PRN (16:00)
--- NOTE | 2017-03-16 16:31 | Cardiac Electrophysiology PN ---
Assessment/Plan Assessment/Plan 1. Recurrent Long artifactual PMVT/VF.No further artifact after lead repositioning.Now OFF tele. 2. Congestive heart failure with BNP of more than 18,000. Her echocardiogram showed ejection fraction of 55% with no pericardial effusion.BNP down to 8000.On Lasix 40 iv daily. 3. Sinus tachycardia secondary to respiratory failure and sepsis. The patient is on IV Levaquin. 4. Hypertension.On Lasix 5. Respiratory failure, on Face Mask now. 6. Status post percutaneous endoscopic gastrostomy placement for dysphagia. 7. History of cerebrovascular accident with hemiplegia and aphasia. 8. Diabetes, on Januvia. KORTNEY RN Subjective Subjective Transferred out of [facility] to nonmonitored bed on 40% mask. Comfortable.. Objective Last 24 Hour Vital Signs Date Time Temp Pulse Resp B/P Pulse Ox O2 Delivery O2 Flow Rate FiO2 03/16/17 12:00 98.1 91 22 97/54 96 Venturi Mask 40 03/16/17 12:00 81 03/16/17 10:35 73 20 100 Venturi Mask 14.0 55 03/16/17 10:30 75 20 99 Venturi Mask 14.0 55 03/16/17 10:30 55 03/16/17 08:00 98.2 89 20 116/63 99 Venturi Mask 50 03/16/17 08:00 75 03/16/17 07:36 Venturi Mask 14.0 55 03/16/17 07:36 99 Venturi Mask 14.0 55 03/16/17 06:35 71 20 100 Venturi Mask 14.0 55 03/16/17 06:30 71 20 99 Venturi Mask 14.0 55 03/16/17 06:30 55 03/16/17 04:00 79 03/16/17 04:00 98.2 86 20 103/58 99 Venturi Mask 50 03/16/17 02:49 98.2 03/16/17 01:14 95 22 99 Venturi Mask 14.0 55 03/16/17 01:05 90 22 97 Venturi Mask 14.0 55 03/16/17 01:05 55 03/16/17 00:00 85 03/16/17 00:00 99.0 87 20 97/54 99 Venturi Mask 50 03/15/17 20:00 98.2 94 20 102/59 98 Venturi Mask 55 03/15/17 20:00 96 03/15/17 19:16 108 22 98 Venturi Mask 14.0 55 03/15/17 19:07 55 03/15/17 19:07 Venturi Mask 14.0 55 03/15/17 19:07 97 Venturi Mask 14.0 55 03/15/17 19:07 103 22 96 Venturi Mask 14.0 55 Intake and Output 03/15/17 03/16/17 19:00 07:00 Intake Total 990 ml 690 ml Output Total 1450 ml 450 ml Balance -460 ml 240 ml Intake Free Water 200 ml 150 ml IV Total 100 ml Tube Feeding 540 ml 540 ml Other 150 ml Output Urine Total 1450 ml 450 ml # Bowel Movements 2 Laboratory Tests Test 03/16/17 04:15 White Blood Count 6.9 K/UL (4.8-10.8) Red Blood Count 2.90 M/UL (4.20-5.40) L Hemoglobin 8.7 G/DL (12.0-16.0) L Hematocrit 27.0 % (37.0-47.0) L Mean Corpuscular Volume 93 FL (80-99) Mean Corpuscular Hemoglobin 30.1 PG (27.0-31.0) Mean Corpuscular Hemoglobin Concent 32.4 G/DL (32.0-36.0) Red Cell Distribution Width 13.4 % (11.6-14.8) Platelet Count 190 K/UL (150-450) Mean Platelet Volume 6.4 FL (6.5-10.1) L Neutrophils (%) (Auto) 67.7 % (45.0-75.0) Lymphocytes (%) (Auto) 21.8 % (20.0-45.0) Monocytes (%) (Auto) 8.4 % (1.0-10.0) Eosinophils (%) (Auto) 1.6 % (0.0-3.0) Basophils (%) (Auto) 0.5 % (0.0-2.0) Sodium Level 149 mEQ/L (135-145) H Potassium Level 4.0 mEQ/L (3.4-4.9) Chloride Level 107 mEQ/L (98-107) Carbon Dioxide Level 35 mEQ/L (20-30) H Anion Gap 7 (5-15) Blood Urea Nitrogen 22 mg/dL (7-23) Creatinine 0.8 mg/dL (0.5-0.9) Estimat Glomerular Filtration Rate mL/min (>60) Glucose Level 136 mg/dL (74-106) H Calcium Level 8.5 mg/dL (8.6-10.2) L Objective NECK: Mild JVD. LUNGS: Decreased breath sounds CARDIOVASCULAR: Tachycardic S1-S2 with no gallop or murmur. Old tracheostomy site is closed. ABDOMEN: Soft and status post PEG. EXTREMITIES: 1+ pitting edema. JUNIOR CASTILLO Mar 16, 2017 16:31
[2017-03-17] MEDS: DuoNeb 0.5-3(2.5)mg/3ml neb INH SCH ×4 (01:00→19:06)
[2017-03-17] MEDS: NovoLOG Insulin Flexpen SUBQ SCH ×4 (01:16→18:29)
[2017-03-17 04:00] VITALS: BP 128/65
[2017-03-17 06:32] LABS: ALANINE AMINOTRANSFERASE 12 U/L (3-33); ALBUMIN/GLOBULIN RATIO 0.7 (1.0-2.7); ANION GAP 9 (5-15); ASPARTATE AMINO TRANSFERASE 23 U/L (5-40); CALCIUM 8.8 mg/dL (8.6-10.2); CARBON DIOXIDE 36 mEQ/L (20-30); CHLORIDE 103 mEQ/L (98-107); CREATININE 0.8 mg/dL (0.5-0.9); HEMOLYSIS 6; POTASSIUM 3.9 mEQ/L (3.4-4.9); SODIUM 148 mEQ/L (135-145); TOTAL PROTEIN 6.3 g/dL (6.6-8.7)
[2017-03-17 06:37] LABS: BASOPHILS % (AUTO) 0.7 % (0.0-2.0); EOSINOPHILS % (AUTO) 2.1 % (0.0-3.0); LYMPHOCYTES % (AUTO) 20.7 % (20.0-45.0); MEAN CORPUSCULAR HEMOGLOBIN 30.5 PG (27.0-31.0); MEAN CORPUSCULAR HGB CONC 32.8 G/DL (32.0-36.0); MEAN CORPUSCULAR VOLUME 93 FL (80-99); MEAN PLATELET VOLUME 6.3 FL (6.5-10.1); MONOCYTES % (AUTO) 6.5 % (1.0-10.0); PLATELET COUNT 248 K/UL (150-450); RED BLOOD COUNT 2.98 M/UL (4.20-5.40); RED CELL DISTRIBUTION WIDTH 13.3 % (11.6-14.8); WHITE BLOOD COUNT 6.5 K/UL (4.8-10.8)
[2017-03-17 08:53] VITALS: BP 123/70
[2017-03-17] MEDS: Docusate 100mg/10ml Liq GT SCH ×2 (09:41→20:49)
[2017-03-17] MEDS: Pantoprazole Inj IVP SCH ×2 (09:42→20:48)
[2017-03-17] MEDS: Heparin 5000 units/ml inj SUBQ SCH ×2 (09:42→20:56)
[2017-03-17] MEDS: Dyna-Hex 2% Top Sol 8oz TOPIC SCH (09:43)
[2017-03-17] MEDS: Nystatin Powder 100,000 units/gm 15gm TOPIC SCH ×3 (09:44→18:00)
--- NOTE | 2017-03-17 09:44 | Infectious Diseases Prog Note ---
Assessment/Plan Assessment/Plan : The patient is a 77-year-old female with Pneumonia , probable SP Rx resp distress : most likely CHF but underling Pna is a consideration Cxray : Interstitial pulmonary edema. Right pleural effusion / low grade Fever, SP Wnd cx : VRE and GNR ( Colonizer ) CHF Echo : 50% Resp distress CVA with left hemiparesis. HTN Diabetes SP PEG and trach placement PLAN: monitor pt off of Ab Rx / SP Levaquin and Flagyl, day # 7 Monitor CBC Monitor BMP Monitor chest x-ray Subjective Allergies: Coded Allergies: No Known Allergies (Verified , 08/14/06) Subjective afebrile Objective Vital Signs Last 24 Hour Vital Signs Date Time Temp Pulse Resp B/P Pulse Ox O2 Delivery O2 Flow Rate FiO2 03/17/17 08:53 97.0 88 21 123/70 98 Room Air 03/17/17 07:49 90 20 99 Venturi Mask 14.0 55 03/17/17 07:39 Venturi Mask 14.0 55 03/17/17 07:39 88 20 98 Venturi Mask 14.0 55 03/17/17 07:39 55 03/17/17 07:39 98 Venturi Mask 14.0 55 03/17/17 04:00 98.1 93 22 128/65 96 Venturi Mask 40.0 03/17/17 01:20 82 21 99 Venturi Mask 14.0 55 03/17/17 01:10 79 20 97 Venturi Mask 14.0 55 03/17/17 01:10 55 03/16/17 23:42 97.7 89 22 128/74 95 Venturi Mask 8.0 40 03/16/17 20:11 75 20 100 Venturi Mask 14.0 55 03/16/17 20:01 85 20 96 Venturi Mask 14.0 55 03/16/17 20:01 55 03/16/17 20:00 96 Venturi Mask 14.0 55 03/16/17 20:00 Venturi Mask 14.0 55 03/16/17 19:53 98.1 87 22 119/66 96 Venturi Mask 8.0 40 03/16/17 16:00 98.2 91 20 127/80 91 Venturi Mask 8.0 40 03/16/17 12:00 98.1 91 22 97/54 96 Venturi Mask 40 03/16/17 12:00 81 03/16/17 10:35 73 20 100 Venturi Mask 14.0 55 03/16/17 10:30 75 20 99 Venturi Mask 14.0 55 03/16/17 10:30 55 Height (Feet): 5 Height (Inches): 6.00 Weight (Pounds): 143 HEENT: anicteric Respiratory/Chest: normal breath sounds Cardiovascular: normal rate Abdomen: non distended Laboratory Tests Test 03/17/17 05:15 White Blood Count 6.5 K/UL (4.8-10.8) Red Blood Count 2.98 M/UL (4.20-5.40) L Hemoglobin 9.1 G/DL (12.0-16.0) L Hematocrit 27.7 % (37.0-47.0) L Mean Corpuscular Volume 93 FL (80-99) Mean Corpuscular Hemoglobin 30.5 PG (27.0-31.0) Mean Corpuscular Hemoglobin Concent 32.8 G/DL (32.0-36.0) Red Cell Distribution Width 13.3 % (11.6-14.8) Platelet Count 248 K/UL (150-450) Mean Platelet Volume 6.3 FL (6.5-10.1) L Neutrophils (%) (Auto) 70.0 % (45.0-75.0) Lymphocytes (%) (Auto) 20.7 % (20.0-45.0) Monocytes (%) (Auto) 6.5 % (1.0-10.0) Eosinophils (%) (Auto) 2.1 % (0.0-3.0) Basophils (%) (Auto) 0.7 % (0.0-2.0) Sodium Level 148 mEQ/L (135-145) H Potassium Level 3.9 mEQ/L (3.4-4.9) Chloride Level 103 mEQ/L (98-107) Carbon Dioxide Level 36 mEQ/L (20-30) H Anion Gap 9 (5-15) Blood Urea Nitrogen 23 mg/dL (7-23) Creatinine 0.8 mg/dL (0.5-0.9) Estimat Glomerular Filtration Rate mL/min (>60) Glucose Level 134 mg/dL (74-106) H Calcium Level 8.8 mg/dL (8.6-10.2) Total Bilirubin 0.2 mg/dL (0.0-1.2) Aspartate Amino Transf (AST/SGOT) 23 U/L (5-40) Alanine Aminotransferase (ALT/SGPT) 12 U/L (3-33) Alkaline Phosphatase 54 U/L (35-104) Pro-B-Type Natriuretic Peptide 2326 pg/mL (0-450) H Total Protein 6.3 g/dL (6.6-8.7) L Albumin 2.7 g/dL (3.5-5.2) L Globulin 3.6 g/dL Albumin/Globulin Ratio 0.7 (1.0-2.7) L Current Medications Medications (Trade) Dose Ordered Sig/Christopher Route PRN Reason Start Time Stop Time Status Last Admin Dose Admin Acetaminophen (Tylenol) 650 mg Q4H PRN GT Mild Pain (Pain Scale 1-3) 03/16/17 15:30 04/15/17 15:29 Acetaminophen (Tylenol) 650 mg Q4H PRN GT fever 03/16/17 15:30 04/15/17 15:29 Albuterol/ Ipratropium (DuoNeb 0.5-3(2.5)mg/3ml) 3 ml Q4H PRN INH Shortness of Breath 03/16/17 15:30 03/21/17 15:29 Albuterol/ Ipratropium (DuoNeb 0.5-3(2.5)mg/3ml) 3 ml Q6HRT INH 03/16/17 19:00 03/21/17 18:59 03/17/17 07:39 Chlorhexidine Gluconate (Tatiana-Hex 2%) 1 applic DAILY TOPIC 03/17/17 09:00 04/16/17 08:59 Dextrose (Dextrose 50%) STAT PRN IV Hypoglycemia 03/16/17 15:30 04/15/17 15:29 Docusate Sodium (Colace) 100 mg EVERY 12 HOURS GT 03/16/17 21:00 04/15/17 20:59 03/16/17 21:04 Furosemide (Lasix) 40 mg DAILY IV 03/17/17 09:00 04/16/17 08:59 Heparin Sodium (Porcine) (Heparin 5000 units/ml) 5,000 units EVERY 12 HOURS SUBQ 03/16/17 21:00 04/15/17 20:59 03/16/17 21:05 Insulin Aspart (NovoLOG) EVERY 6 HOURS SUBQ 03/16/17 18:00 04/15/17 17:59 03/17/17 06:01 Magnesium Hydroxide (Mom) 30 ml HSPRN PRN GT Constipation 03/16/17 16:00 04/15/17 15:59 Nystatin (Nystop Powder) 1 applic THREE TIMES A DAY TOPIC 03/16/17 18:00 04/15/17 17:59 03/16/17 17:40 Pantoprazole (Protonix) 40 mg EVERY 12 HOURS IVP 03/16/17 21:00 04/15/17 20:59 03/16/17 21:04 YULI LAWRENCE M.D. Mar 17, 2017 09:44
[2017-03-17 11:51] VITALS: BP 108/60
--- NOTE | 2017-03-17 11:53 | Wound Care Consultation ---
Wound Assessment Wound Assessment #1: Wound Number: #1 Wound Present on Admission: Yes New Wound: No Status Change of Wound: No Wound Location Body Site Modif: mid Wound Location Body Site: sacral Wound Type: pressure ulcer Abdoulaye Test: Does not Abdoulaye Pressure Ulcer Stage: IV/unstageable Wound Thickness: Full Thickness Wound Length: 0.8 Wound Width: 0.8 Wound Depth: 0.1 Percent of Wound [place]/Red: 100 Other Colors Identified: Full thickness scar tissue present to sacral pressure ulcer. Wound Drainage Description: Serosanguineous Wound Drainage Amount: Moderate Wound Drainage Odor: None/Absent Tissue Surrounding Wound: Macerated Wound General Appearance: Reddened, Draining Wound Assessment #2: Wound Number: #2 Wound Present on Admission: Yes New Wound: No Status Change of Wound: No Wound Location Body Site Modif: left Wound Location Body Site: metatarsal head - 1st Wound Type: pressure ulcer Abdoulaye Test: Does not Abdoulaye Pressure Ulcer Stage: deep tissue injury Wound Thickness: Full Thickness Wound Length: 1.0 Wound Width: 1.0 Wound Depth: utd Percent of Wound [place]/Red: 50 - noted refresh technician in color Percent of Wound Purple/Maroon: 50 Wound Drainage Amount: None Wound Drainage Odor: None/Absent Tissue Surrounding Wound: Intact Wound General Appearance: Reddened Wound Assessment #3: Wound Number: #3 Wound Present on Admission: Yes New Wound: No Status Change of Wound: No Wound Location Body Site Modif: right, anterior Wound Location Body Site: toe - 2nd,3rd,4th Wound Type: scab - resolving Abdoulaye Test: Does not Abdoulaye Pressure Ulcer Stage: deep tissue injury Wound Thickness: Full Thickness Percent of Wound Black/Brown: 100 - noted smaller scabs present to site 2nd 3rd and 4th toe. Wound Drainage Amount: None Wound Drainage Odor: None/Absent Tissue Surrounding Wound: Intact Wound General Appearance: Asymptomatic, Reddened, Clean/Dry Wound Assessment #4: Wound Number: #4 Wound Present on Admission: Yes New Wound: No Status Change of Wound: No Wound Location Body Site Modif: right Wound Location Body Site: breast fold Wound Type: rash - resolving. Percent of Wound [place]/Red: 100 Wound Drainage Amount: None Wound Drainage Odor: None/Absent Tissue Surrounding Wound: Intact Wound General Appearance: Reddened - noted refresh technician in color. Wound Assessment #5: Wound Number: #5 Wound Present on Admission: Yes New Wound: No Status Change of Wound: No Wound Location Body Site Modif: left Wound Location Body Site: trochanter Wound Type: scar Abdoulaye Test: Does not Abdoulaye Wound Thickness: Full Thickness Wound Length: 4.0 Wound Width: 3.0 Wound Depth: utd Percent of Wound [place]/Red: 100 Wound Drainage Amount: None Wound Drainage Odor: None/Absent Tissue Surrounding Wound: Intact Wound General Appearance: Asymptomatic Wound Assessment #6: Wound Number: #6 Wound Present on Admission: Yes New Wound: No Status Change of Wound: No Wound Location Body Site Modif: right Wound Location Body Site: trochanter Wound Type: scar Abdoulaye Test: Does not Badoulaye Wound Thickness: Full Thickness Wound Length: 3.0 Wound Width: 2.5 Wound Depth: utd Percent of Wound [place]/Red: 100 Wound Drainage Amount: None Wound Drainage Odor: None/Absent Tissue Surrounding Wound: Intact Wound General Appearance: Asymptomatic Wound Comment #1 Sacral pressure ulcer stage IV with full thickness scar tissue to surrounding skin.- wound bed pink , continue current wound care, continue to reposition.Offload. #2 Right 2nd,3rd and 4th toe anterior toes dry scabs.- noted dry scabs intact smaller in size. #3 Left 1st metatarsal head deep tissue injury. #4 right breast fold rash- noted decrease in rash. #5 left trochanter full thickness scar tissue.- intact #6 right trochanter full thickness scar tissue- intact. #7 right elbow intact , no present discoloration noted. assessed both heels skin intact no redness present. assessed left elbow skin intact, no redness present. noted good progress to admitted wounds. Recommendations. - local wound care as ordered. -turn and reposition. -low air loss mattress SPR. -offload affected sites. -heel protectors. -offload heels and feet. -keep clean and dry. -optimize nutrition. -Assess and notify MD for any changes noted to skin. IRLANDA JAMESON Mar 17, 2017 11:53
--- NOTE | 2017-03-17 14:48 | Diagnostic Imaging Report ---
Indication: Dyspnea Comparison: 03/16/17 A single view chest radiograph was obtained. Findings: Suspected right pleural effusion. The cardiac opacification again noted. Cardiomegaly is present. Interstitial edema is again demonstrated without significant change. Impression: No significant change management the last day
[2017-03-17] MEDS ORDERED: Tubing IV Secondary IV ONE (15:04)
[2017-03-17] MEDS ORDERED: NS 275ml ONE ×2 (15:04→16:29)
--- NOTE | 2017-03-17 15:37 | Cardiac Electrophysiology PN ---
Assessment/Plan Assessment/Plan 1. Recurrent Long artifactual PMVT/VF.No further artifact after lead repositioning. OFF tele. 2. Congestive heart failure with BNP of more than 18,000. Her echocardiogram showed ejection fraction of 55% with no pericardial [place] [address] to 1999.Change Lasix to 40 PEG daily. 3. Sinus tachycardia secondary to respiratory failure and sepsis. The patient is on IV Levaquin. 4. Hypertension.On Lasix 5. Respiratory failure, on Face Mask now. 6. Status post percutaneous endoscopic gastrostomy placement for dysphagia. 7. History of cerebrovascular accident with hemiplegia and aphasia. 8. Diabetes, on Januvia. KORTNEY RN Subjective Subjective On nonmonitored bed on oxygen mask. Comfortable. Objective Last 24 Hour Vital Signs Date Time Temp Pulse Resp B/P Pulse Ox O2 Delivery O2 Flow Rate FiO2 03/17/17 14:10 Venturi Mask 10.0 45 03/17/17 13:50 55 03/17/17 13:50 86 20 96 Venturi Mask 14.0 55 03/17/17 13:50 90 20 99 Venturi Mask 14.0 55 03/17/17 11:51 98.1 91 20 108/60 97 Nasal Cannula 15.0 03/17/17 08:53 97.0 88 21 123/70 98 Room Air 03/17/17 07:49 90 20 99 Venturi Mask 14.0 55 03/17/17 07:39 Venturi Mask 14.0 55 03/17/17 07:39 88 20 98 Venturi Mask 14.0 55 03/17/17 07:39 55 03/17/17 07:39 98 Venturi Mask 14.0 55 03/17/17 04:00 98.1 93 22 128/65 96 Venturi Mask 40.0 03/17/17 01:20 82 21 99 Venturi Mask 14.0 55 03/17/17 01:10 79 20 97 Venturi Mask 14.0 55 03/17/17 01:10 55 03/16/17 23:42 97.7 89 22 128/74 95 Venturi Mask 8.0 40 03/16/17 20:11 75 20 100 Venturi Mask 14.0 55 03/16/17 20:01 85 20 96 Venturi Mask 14.0 55 03/16/17 20:01 55 03/16/17 20:00 96 Venturi Mask 14.0 55 03/16/17 20:00 Venturi Mask 14.0 55 03/16/17 19:53 98.1 87 22 119/66 96 Venturi Mask 8.0 40 03/16/17 16:00 98.2 91 20 127/80 91 Venturi Mask 8.0 40 Intake and Output 03/16/17 03/17/17 19:00 07:00 Intake Total 645 ml 495 ml Output Total 1400 ml Balance -755 ml 495 ml Intake Free Water 30 ml Tube Feeding 585 ml 495 ml Other 30 ml Output Urine Total 1400 ml # Bowel Movements 1 2 Laboratory Tests Test 03/17/17 05:15 White Blood Count 6.5 K/UL (4.8-10.8) Red Blood Count 2.98 M/UL (4.20-5.40) L Hemoglobin 9.1 G/DL (12.0-16.0) L Hematocrit 27.7 % (37.0-47.0) L Mean Corpuscular Volume 93 FL (80-99) Mean Corpuscular Hemoglobin 30.5 PG (27.0-31.0) Mean Corpuscular Hemoglobin Concent 32.8 G/DL (32.0-36.0) Red Cell Distribution Width 13.3 % (11.6-14.8) Platelet Count 248 K/UL (150-450) Mean Platelet Volume 6.3 FL (6.5-10.1) L Neutrophils (%) (Auto) 70.0 % (45.0-75.0) Lymphocytes (%) (Auto) 20.7 % (20.0-45.0) Monocytes (%) (Auto) 6.5 % (1.0-10.0) Eosinophils (%) (Auto) 2.1 % (0.0-3.0) Basophils (%) (Auto) 0.7 % (0.0-2.0) Sodium Level 148 mEQ/L (135-145) H Potassium Level 3.9 mEQ/L (3.4-4.9) Chloride Level 103 mEQ/L (98-107) Carbon Dioxide Level 36 mEQ/L (20-30) H Anion Gap 9 (5-15) Blood Urea Nitrogen 23 mg/dL (7-23) Creatinine 0.8 mg/dL (0.5-0.9) Estimat Glomerular Filtration Rate mL/min (>60) Glucose Level 134 mg/dL (74-106) H Calcium Level 8.8 mg/dL (8.6-10.2) Total Bilirubin 0.2 mg/dL (0.0-1.2) Aspartate Amino Transf (AST/SGOT) 23 U/L (5-40) Alanine Aminotransferase (ALT/SGPT) 12 U/L (3-33) Alkaline Phosphatase 54 U/L (35-104) Pro-B-Type Natriuretic Peptide 2326 pg/mL (0-450) H Total Protein 6.3 g/dL (6.6-8.7) L Albumin 2.7 g/dL (3.5-5.2) L Globulin 3.6 g/dL Albumin/Globulin Ratio 0.7 (1.0-2.7) L Objective NECK: Mild JVD. LUNGS: Coarse rhonchi CARDIOVASCULAR: Nl S1-S2 with no gallop or murmur. Old tracheostomy site is closed. ABDOMEN: Soft and status post PEG. EXTREMITIES: 1+ pitting edema. JUNIOR CASTILLO Mar 17, 2017 15:37
[2017-03-17 16:07] VITALS: BP 104/53
--- NOTE | 2017-03-17 17:31 | Internal Med Progress Note ---
Subjective Date of Service: Mar 17, 2017 Physician Name Suri Daly Attending Physician Tereso Toro MD Current Medications Medications (Trade) Dose Ordered Sig/Christopher Route PRN Reason Start Time Stop Time Status Last Admin Dose Admin Acetaminophen (Tylenol) 650 mg Q4H PRN GT Mild Pain (Pain Scale 1-3) 03/16/17 15:30 04/15/17 15:29 Acetaminophen (Tylenol) 650 mg Q4H PRN GT fever 03/16/17 15:30 04/15/17 15:29 Albuterol/ Ipratropium (DuoNeb 0.5-3(2.5)mg/3ml) 3 ml Q4H PRN INH Shortness of Breath 03/16/17 15:30 03/21/17 15:29 Albuterol/ Ipratropium (DuoNeb 0.5-3(2.5)mg/3ml) 3 ml Q6HRT INH 03/16/17 19:00 03/21/17 18:59 03/17/17 13:57 Chlorhexidine Gluconate (Tatiana-Hex 2%) 1 applic DAILY TOPIC 03/17/17 09:00 04/16/17 08:59 03/17/17 09:43 Dextrose (Dextrose 50%) STAT PRN IV Hypoglycemia 03/16/17 15:30 04/15/17 15:29 Docusate Sodium (Colace) 100 mg EVERY 12 HOURS GT 03/16/17 21:00 04/15/17 20:59 03/17/17 09:41 Furosemide (Lasix) 40 mg DAILY PEG 03/18/17 09:00 04/17/17 08:59 Heparin Sodium (Porcine) (Heparin 5000 units/ml) 5,000 units EVERY 12 HOURS SUBQ 03/16/17 21:00 04/15/17 20:59 03/17/17 09:42 Insulin Aspart (NovoLOG) EVERY 6 HOURS SUBQ 03/16/17 18:00 04/15/17 17:59 03/17/17 13:28 Magnesium Hydroxide (Mom) 30 ml HSPRN PRN GT Constipation 03/16/17 16:00 04/15/17 15:59 Nystatin (Nystop Powder) 1 applic THREE TIMES A DAY TOPIC 03/16/17 18:00 04/15/17 17:59 03/17/17 13:29 Pantoprazole (Protonix) 40 mg EVERY 12 HOURS IVP 03/16/17 21:00 04/15/17 20:59 03/17/17 09:42 Allergies: Coded Allergies: No Known Allergies (Verified , 08/14/06) ROS Limited/Unobtainable: Yes Subjective 77 YO F admitted with hypotension, fever and congestion. KATERINE. Cover for Int [facility]-Dr Toro. Currently tolerating simple mask. Objective Last Vital Signs Date Time Temp Pulse Resp B/P Pulse Ox O2 Delivery O2 Flow Rate FiO2 03/17/17 16:07 97.9 82 19 104/53 100 Simple Mask 15.0 03/17/17 14:10 45 Laboratory Tests Test 03/17/17 05:15 White Blood Count 6.5 K/UL (4.8-10.8) Red Blood Count 2.98 M/UL (4.20-5.40) L Hemoglobin 9.1 G/DL (12.0-16.0) L Hematocrit 27.7 % (37.0-47.0) L Mean Corpuscular Volume 93 FL (80-99) Mean Corpuscular Hemoglobin 30.5 PG (27.0-31.0) Mean Corpuscular Hemoglobin Concent 32.8 G/DL (32.0-36.0) Red Cell Distribution Width 13.3 % (11.6-14.8) Platelet Count 248 K/UL (150-450) Mean Platelet Volume 6.3 FL (6.5-10.1) L Neutrophils (%) (Auto) 70.0 % (45.0-75.0) Lymphocytes (%) (Auto) 20.7 % (20.0-45.0) Monocytes (%) (Auto) 6.5 % (1.0-10.0) Eosinophils (%) (Auto) 2.1 % (0.0-3.0) Basophils (%) (Auto) 0.7 % (0.0-2.0) Sodium Level 148 mEQ/L (135-145) H Potassium Level 3.9 mEQ/L (3.4-4.9) Chloride Level 103 mEQ/L (98-107) Carbon Dioxide Level 36 mEQ/L (20-30) H Anion Gap 9 (5-15) Blood Urea Nitrogen 23 mg/dL (7-23) Creatinine 0.8 mg/dL (0.5-0.9) Estimat Glomerular Filtration Rate mL/min (>60) Glucose Level 134 mg/dL (74-106) H Calcium Level 8.8 mg/dL (8.6-10.2) Total Bilirubin 0.2 mg/dL (0.0-1.2) Aspartate Amino Transf (AST/SGOT) 23 U/L (5-40) Alanine Aminotransferase (ALT/SGPT) 12 U/L (3-33) Alkaline Phosphatase 54 U/L (35-104) Pro-B-Type Natriuretic Peptide 2326 pg/mL (0-450) H Total Protein 6.3 g/dL (6.6-8.7) L Albumin 2.7 g/dL (3.5-5.2) L Globulin 3.6 g/dL Albumin/Globulin Ratio 0.7 (1.0-2.7) L Intake and Output 03/16/17 03/17/17 19:00 07:00 Intake Total 645 ml 495 ml Output Total 1400 ml Balance -755 ml 495 ml Intake Free Water 30 ml Tube Feeding 585 ml 495 ml Other 30 ml Output Urine Total 1400 ml # Bowel Movements 1 2 Objective General Appearance: mild distress, lethargic, thin EENT: normal ENT inspection Neck: non-tender, normal alignment, supple Cardiovascular: normal peripheral pulses, normal rate, regular rhythm, no gallop/murmur, no JVD Respiratory/Chest: Venturi mask; labored, accessory muscle use, respiratory distress, crackles/rales, rhonchi - bilaterally, expiratory wheezing Abdomen: normal bowel sounds, non tender, soft, no organomegaly, no mass Extremities: normal range of motion Skin: normal pigmentation, warm/dry Assessment/Plan Problem List: (1) Hypotension (2) Fever (3) HTN (hypertension) Assessment & Plan: Cont metoprolol (4) Diabetes mellitus type II, uncontrolled (5) CHF (congestive heart failure) Assessment & Plan: See cardiology consult. (6) Hemiparesis affecting left side as late effect of cerebrovascular accident (7) Sepsis Assessment & Plan: S/P flagyl and levaquim per ID. (8) Cerebral vascular disease (9) Aspiration pneumonia Assessment & Plan: D/C levaquin and flagyl per ID and pulmonary (10) Pneumonia (11) Acute respiratory failure Assessment & Plan: Continue venturi mask per pulmonary. Assessment/Plan Await [facility] acute care facility placement; [facility]. SURI DALY Mar 17, 2017 17:31
[2017-03-17 20:00] VITALS: BP 106/53
[2017-03-18] VITALS: BP 119/62
[2017-03-18] MEDS: NovoLOG Insulin Flexpen SUBQ SCH ×4 (00:03→18:27)
[2017-03-18] MEDS: DuoNeb 0.5-3(2.5)mg/3ml neb INH SCH ×3 (00:49→13:26)
[2017-03-18 04:00] VITALS: BP 130/67
[2017-03-18 07:13] LABS: BASOPHILS % (AUTO) 0.7 % (0.0-2.0); EOSINOPHILS % (AUTO) 3.8 % (0.0-3.0); LYMPHOCYTES % (AUTO) 26.8 % (20.0-45.0); MEAN CORPUSCULAR HEMOGLOBIN 29.2 PG (27.0-31.0); MEAN CORPUSCULAR HGB CONC 31.5 G/DL (32.0-36.0); MEAN CORPUSCULAR VOLUME 93 FL (80-99); MEAN PLATELET VOLUME 6.2 FL (6.5-10.1); MONOCYTES % (AUTO) 7.2 % (1.0-10.0); NEUTROPHILS % (AUTO) 61.5 % (45.0-75.0); PLATELET COUNT 286 K/UL (150-450); RED BLOOD COUNT 3.19 M/UL (4.20-5.40); RED CELL DISTRIBUTION WIDTH 13.3 % (11.6-14.8); WHITE BLOOD COUNT 5.5 K/UL (4.8-10.8)
[2017-03-18 07:41] LABS: ANION GAP 7 (5-15); CALCIUM 9.2 mg/dL (8.6-10.2); CARBON DIOXIDE 38 mEQ/L (20-30); CHLORIDE 100 mEQ/L (98-107); CREATININE 0.8 mg/dL (0.5-0.9); HEMOLYSIS 4; POTASSIUM 3.9 mEQ/L (3.4-4.9); SODIUM 145 mEQ/L (135-145)
[2017-03-18 07:59] VITALS: BP 122/63
[2017-03-18] MEDS ORDERED: Furosemide 40mg tab PEG SCH (09:00)
[2017-03-18] MEDS: Dyna-Hex 2% Top Sol 8oz TOPIC SCH (09:08)
[2017-03-18] MEDS: Docusate 100mg/10ml Liq GT SCH (09:08)
[2017-03-18] MEDS: Heparin 5000 units/ml inj SUBQ SCH (09:09)
[2017-03-18] MEDS: Pantoprazole Inj IVP SCH (09:10)
[2017-03-18] MEDS: Nystatin Powder 100,000 units/gm 15gm TOPIC SCH ×3 (09:11→18:00)
[2017-03-18 12:00] VITALS: BP 125/64
--- NOTE | 2017-03-18 12:23 | Internal Med Progress Note ---
Subjective Date of Service: Mar 18, 2017 Physician Name Suri Clinton Attending Physician Tereso Toro MD Current Medications Medications (Trade) Dose Ordered Sig/Christopher Route PRN Reason Start Time Stop Time Status Last Admin Dose Admin Acetaminophen (Tylenol) 650 mg Q4H PRN GT Mild Pain (Pain Scale 1-3) 03/16/17 15:30 04/15/17 15:29 Acetaminophen (Tylenol) 650 mg Q4H PRN GT fever 03/16/17 15:30 04/15/17 15:29 Albuterol/ Ipratropium (DuoNeb 0.5-3(2.5)mg/3ml) 3 ml Q4H PRN INH Shortness of Breath 03/16/17 15:30 03/21/17 15:29 Albuterol/ Ipratropium (DuoNeb 0.5-3(2.5)mg/3ml) 3 ml Q6HRT INH 03/16/17 19:00 03/21/17 18:59 03/18/17 07:40 Chlorhexidine Gluconate (Tatiana-Hex 2%) 1 applic DAILY TOPIC 03/17/17 09:00 04/16/17 08:59 03/18/17 09:08 Dextrose (Dextrose 50%) STAT PRN IV Hypoglycemia 03/16/17 15:30 04/15/17 15:29 Docusate Sodium (Colace) 100 mg EVERY 12 HOURS GT 03/16/17 21:00 04/15/17 20:59 03/18/17 09:08 Furosemide (Lasix) 40 mg DAILY PEG 03/18/17 09:00 04/17/17 08:59 03/18/17 09:09 Heparin Sodium (Porcine) (Heparin 5000 units/ml) 5,000 units EVERY 12 HOURS SUBQ 03/16/17 21:00 04/15/17 20:59 03/18/17 09:09 Insulin Aspart (NovoLOG) EVERY 6 HOURS SUBQ 03/16/17 18:00 04/15/17 17:59 03/18/17 12:13 Magnesium Hydroxide (Mom) 30 ml HSPRN PRN GT Constipation 03/16/17 16:00 04/15/17 15:59 Nystatin (Nystop Powder) 1 applic THREE TIMES A DAY TOPIC 03/16/17 18:00 04/15/17 17:59 03/18/17 09:11 Pantoprazole (Protonix) 40 mg EVERY 12 HOURS IVP 03/16/17 21:00 04/15/17 20:59 03/18/17 09:10 Allergies: Coded Allergies: No Known Allergies (Verified , 08/14/06) ROS Limited/Unobtainable: Yes Subjective 77 YO F admitted with hypotension, fever and congestion. KATERINE. Cover for Int Med-Dr Toro. Currently tolerating nasal canula Objective Last Vital Signs Date Time Temp Pulse Resp B/P Pulse Ox O2 Delivery O2 Flow Rate FiO2 03/18/17 11:25 96 Nasal Cannula 4.0 36 03/18/17 07:59 100.2 89 20 122/63 Laboratory Tests Test 03/18/17 06:05 White Blood Count 5.5 K/UL (4.8-10.8) Red Blood Count 3.19 M/UL (4.20-5.40) L Hemoglobin 9.3 G/DL (12.0-16.0) L Hematocrit 29.6 % (37.0-47.0) L Mean Corpuscular Volume 93 FL (80-99) Mean Corpuscular Hemoglobin 29.2 PG (27.0-31.0) Mean Corpuscular Hemoglobin Concent 31.5 G/DL (32.0-36.0) L Red Cell Distribution Width 13.3 % (11.6-14.8) Platelet Count 286 K/UL (150-450) Mean Platelet Volume 6.2 FL (6.5-10.1) L Neutrophils (%) (Auto) 61.5 % (45.0-75.0) Lymphocytes (%) (Auto) 26.8 % (20.0-45.0) Monocytes (%) (Auto) 7.2 % (1.0-10.0) Eosinophils (%) (Auto) 3.8 % (0.0-3.0) H Basophils (%) (Auto) 0.7 % (0.0-2.0) Sodium Level 145 mEQ/L (135-145) Potassium Level 3.9 mEQ/L (3.4-4.9) Chloride Level 100 mEQ/L (98-107) Carbon Dioxide Level 38 mEQ/L (20-30) H Anion Gap 7 (5-15) Blood Urea Nitrogen 24 mg/dL (7-23) H Creatinine 0.8 mg/dL (0.5-0.9) Estimat Glomerular Filtration Rate mL/min (>60) Glucose Level 142 mg/dL (74-106) H Calcium Level 9.2 mg/dL (8.6-10.2) Intake and Output 03/17/17 03/18/17 19:00 07:00 Intake Total 745 ml 745 ml Output Total 1100 ml 250 ml Balance -355 ml 495 ml Intake Free Water 250 ml 250 ml Tube Feeding 495 ml 495 ml Output Urine Total 1100 ml 250 ml # Bowel Movements 1 Objective General Appearance: mild distress, lethargic, thin EENT: normal ENT inspection Neck: non-tender, normal alignment, supple Cardiovascular: normal peripheral pulses, normal rate, regular rhythm, no gallop/murmur, no JVD Respiratory/Chest: Nasal canula; labored, accessory muscle use, respiratory distress, crackles/rales, rhonchi - bilaterally, expiratory wheezing Abdomen: normal bowel sounds, non tender, soft, no organomegaly, no mass Extremities: normal range of motion Skin: normal pigmentation, warm/dry Assessment/Plan Problem List: (1) Hypotension (2) Fever (3) HTN (hypertension) Assessment & Plan: Cont metoprolol (4) Diabetes mellitus type II, uncontrolled (5) CHF (congestive heart failure) Assessment & Plan: See cardiology consult. (6) Hemiparesis affecting left side as late effect of cerebrovascular accident (7) Sepsis Assessment & Plan: S/P flagyl and levaquim per ID. (8) Cerebral vascular disease (9) Aspiration pneumonia Assessment & Plan: D/C levaquin and flagyl per ID and pulmonary (10) Pneumonia (11) Acute respiratory failure Assessment & Plan: Continue venturi mask per pulmonary. Assessment/Plan Discharge planning: home with home health per family request SURI CLINTON Mar 18, 2017 12:23
[2017-03-18 16:00] VITALS: BP 128/60
--- NOTE | 2017-03-18 17:50 | Cardiac Electrophysiology PN ---
Assessment/Plan Assessment/Plan 1. Recurrent Long PMVT/VF looking artifact.No further artifact after lead repositioning. OFF tele. 2. Congestive heart failure with BNP of more than 18,000. Her echocardiogram showed ejection fraction of 55% with no pericardial [place] [address] [place] 1999.On Lasix 40 PEG daily. 3. Sinus tachycardia secondary to respiratory failure and sepsis. Better with Abx 4. Hypertension.On Lasix 5. Respiratory failure, on Nasal Cannula now. 6. Status post percutaneous endoscopic gastrostomy placement for dysphagia. 7. History of cerebrovascular accident with hemiplegia and aphasia. 8. Diabetes, on Januvia. KORTNEY RN Subjective Subjective On nonmonitored bed on oxygen mask. Comfortable in NAD. No events overnight. Objective Last 24 Hour Vital Signs Date Time Temp Pulse Resp B/P Pulse Ox O2 Delivery O2 Flow Rate FiO2 03/18/17 16:00 98.2 94 20 128/60 94 Nasal Cannula 5.0 03/18/17 13:40 83 20 98 Nasal Cannula 4.0 03/18/17 13:26 82 20 93 Nasal Cannula 4.0 03/18/17 12:00 97.7 84 20 125/64 97 Nasal Cannula 5.0 03/18/17 11:25 96 Nasal Cannula 4.0 36 03/18/17 07:59 100.2 89 20 122/63 94 Nasal Cannula 5.0 03/18/17 07:50 78 20 98 Nasal Cannula 5.0 40 03/18/17 07:40 40 03/18/17 07:40 87 20 98 Nasal Cannula 5.0 40 03/18/17 07:28 98 Nasal Cannula 5.0 40 03/18/17 07:28 Nasal Cannula 5.0 40 03/18/17 04:00 97.7 89 20 130/67 94 Room Air 03/18/17 00:58 71 20 100 Venturi Mask 14.0 55 03/18/17 00:49 85 20 96 Venturi Mask 14.0 45 03/18/17 00:49 45 03/18/17 00:00 97.0 86 20 119/62 94 Venturi Mask 10.0 45 03/17/17 20:00 98.4 88 20 106/53 96 Venturi Mask 10.0 45 03/17/17 19:26 75 20 100 Venturi Mask 10.0 45 03/17/17 19:08 45 03/17/17 19:08 88 20 98 Venturi Mask 10.0 45 03/17/17 19:06 96 Venturi Mask 10.0 45 03/17/17 19:06 Venturi Mask 10.0 45 Intake and Output 03/17/17 03/18/17 19:00 07:00 Intake Total 745 ml 745 ml Output Total 1100 ml 250 ml Balance -355 ml 495 ml Intake Free Water 250 ml 250 ml Tube Feeding 495 ml 495 ml Output Urine Total 1100 ml 250 ml # Bowel Movements 1 Laboratory Tests Test 03/18/17 06:05 White Blood Count 5.5 K/UL (4.8-10.8) Red Blood Count 3.19 M/UL (4.20-5.40) L Hemoglobin 9.3 G/DL (12.0-16.0) L Hematocrit 29.6 % (37.0-47.0) L Mean Corpuscular Volume 93 FL (80-99) Mean Corpuscular Hemoglobin 29.2 PG (27.0-31.0) Mean Corpuscular Hemoglobin Concent 31.5 G/DL (32.0-36.0) L Red Cell Distribution Width 13.3 % (11.6-14.8) Platelet Count 286 K/UL (150-450) Mean Platelet Volume 6.2 FL (6.5-10.1) L Neutrophils (%) (Auto) 61.5 % (45.0-75.0) Lymphocytes (%) (Auto) 26.8 % (20.0-45.0) Monocytes (%) (Auto) 7.2 % (1.0-10.0) Eosinophils (%) (Auto) 3.8 % (0.0-3.0) H Basophils (%) (Auto) 0.7 % (0.0-2.0) Sodium Level 145 mEQ/L (135-145) Potassium Level 3.9 mEQ/L (3.4-4.9) Chloride Level 100 mEQ/L (98-107) Carbon Dioxide Level 38 mEQ/L (20-30) H Anion Gap 7 (5-15) Blood Urea Nitrogen 24 mg/dL (7-23) H Creatinine 0.8 mg/dL (0.5-0.9) Estimat Glomerular Filtration Rate mL/min (>60) Glucose Level 142 mg/dL (74-106) H Calcium Level 9.2 mg/dL (8.6-10.2) Objective NECK: Mild JVD.Nasal Cannula on. LUNGS: Coarse rhonchi CARDIOVASCULAR: Nl S1-S2 with no gallop or murmur. Old tracheostomy site is closed. ABDOMEN: Soft and status post PEG. EXTREMITIES: 1+ pitting edema. JUNIOR CASTILLO Mar 18, 2017 17:49
--- NOTE | 2017-03-18 19:20 | Pulmonology Progress Note ---
Assessment/Plan Problems: (1) Sepsis (2) Diabetes (3) Cerebral vascular disease (4) Feeding by G-tube (5) Hemiparesis affecting left side as late effect of cerebrovascular accident Assessment/Plan bnp decreasing repeat labs in am dvt prophylaxis tolerating diet. taper down oxygen med/surg dc planning Subjective ROS Limited/Unobtainable: Yes Interval Events: no new complains, on NC Allergies: Coded Allergies: No Known Allergies (Verified , 08/14/06) Objective Last 24 Hour Vital Signs Date Time Temp Pulse Resp B/P Pulse Ox O2 Delivery O2 Flow Rate FiO2 03/18/17 16:00 98.2 94 20 128/60 94 Nasal Cannula 5.0 03/18/17 13:40 83 20 98 Nasal Cannula 4.0 03/18/17 13:26 82 20 93 Nasal Cannula 4.0 03/18/17 12:00 97.7 84 20 125/64 97 Nasal Cannula 5.0 03/18/17 11:25 96 Nasal Cannula 4.0 36 03/18/17 07:59 100.2 89 20 122/63 94 Nasal Cannula 5.0 03/18/17 07:50 78 20 98 Nasal Cannula 5.0 40 03/18/17 07:40 40 03/18/17 07:40 87 20 98 Nasal Cannula 5.0 40 03/18/17 07:28 98 Nasal Cannula 5.0 40 03/18/17 07:28 Nasal Cannula 5.0 40 03/18/17 04:00 97.7 89 20 130/67 94 Room Air 03/18/17 00:58 71 20 100 Venturi Mask 14.0 55 03/18/17 00:49 85 20 96 Venturi Mask 14.0 45 03/18/17 00:49 45 03/18/17 00:00 97.0 86 20 119/62 94 Venturi Mask 10.0 45 03/17/17 20:00 98.4 88 20 106/53 96 Venturi Mask 10.0 45 03/17/17 19:26 75 20 100 Venturi Mask 10.0 45 Intake and Output 03/17/17 03/18/17 19:00 07:00 Intake Total 745 ml 745 ml Output Total 1100 ml 250 ml Balance -355 ml 495 ml Intake Free Water 250 ml 250 ml Tube Feeding 495 ml 495 ml Output Urine Total 1100 ml 250 ml # Bowel Movements 1 General Appearance: WD/WN HEENT: normocephalic, atraumatic Respiratory/Chest: chest wall non-tender, lungs clear Cardiovascular: normal peripheral pulses Abdomen: normal bowel sounds, soft, non tender Extremities: no cyanosis Laboratory Tests 03/18/17 06:05: White Blood Count 5.5, Red Blood Count 3.19L, Hemoglobin 9.3L, Hematocrit 29.6L , Mean Corpuscular Volume 93, Mean Corpuscular Hemoglobin 29.2, Mean Corpuscular Hemoglobin Concent 31.5L, Red Cell Distribution Width 13.3, Platelet Count 286, Mean Platelet Volume 6.2L, Neutrophils (%) (Auto) 61.5, Lymphocytes (%) (Auto) 26.8, Monocytes (%) (Auto) 7.2, Eosinophils (%) (Auto) 3.8H, Basophils (%) (Auto) 0.7, Sodium Level 145, Potassium Level 3.9, Chloride Level 100, Carbon Dioxide Level 38H, Anion Gap 7, Blood Urea Nitrogen 24H, Creatinine 0.8, Estimat Glomerular Filtration Rate , Glucose Level 142H, Calcium Level 9.2 Current Medications Medications (Trade) Dose Ordered Sig/Christopher Route PRN Reason Start Time Stop Time Status Last Admin Dose Admin Acetaminophen (Tylenol) 650 mg Q4H PRN GT Mild Pain (Pain Scale 1-3) 03/16/17 15:30 04/15/17 15:29 Acetaminophen (Tylenol) 650 mg Q4H PRN GT fever 03/16/17 15:30 04/15/17 15:29 Albuterol/ Ipratropium (DuoNeb 0.5-3(2.5)mg/3ml) 3 ml Q4H PRN INH Shortness of Breath 03/16/17 15:30 03/21/17 15:29 Albuterol/ Ipratropium (DuoNeb 0.5-3(2.5)mg/3ml) 3 ml Q6HRT INH 03/16/17 19:00 03/21/17 18:59 03/18/17 13:26 Chlorhexidine Gluconate (Tatiana-Hex 2%) 1 applic DAILY TOPIC 03/17/17 09:00 04/16/17 08:59 03/18/17 09:08 Dextrose (Dextrose 50%) STAT PRN IV Hypoglycemia 03/16/17 15:30 04/15/17 15:29 Docusate Sodium (Colace) 100 mg EVERY 12 HOURS GT 03/16/17 21:00 04/15/17 20:59 03/18/17 09:08 Furosemide (Lasix) 40 mg DAILY PEG 03/18/17 09:00 04/17/17 08:59 03/18/17 09:09 Heparin Sodium (Porcine) (Heparin 5000 units/ml) 5,000 units EVERY 12 HOURS SUBQ 03/16/17 21:00 04/15/17 20:59 03/18/17 09:09 Insulin Aspart (NovoLOG) EVERY 6 HOURS SUBQ 03/16/17 18:00 04/15/17 17:59 03/18/17 18:27 Lansoprazole (Prevacid) 30 mg Q12HR GT 03/18/17 21:00 04/17/17 20:59 Magnesium Hydroxide (Mom) 30 ml HSPRN PRN GT Constipation 03/16/17 16:00 04/15/17 15:59 Nystatin (Nystop Powder) 1 applic THREE TIMES A DAY TOPIC 03/16/17 18:00 04/15/17 17:59 03/18/17 13:43 MARIANELA HARRY Mar 18, 2017 19:20
--- NOTE | 2017-03-19 12:33 | Discharge Summary ---
Discharge Summary Hospital Course Date of Admission March 09, 2017 at 00:20 Date of Discharge Mar 18, 2017 at 19:00 Admitting Diagnosis sepsis, pneuonia. HPI China Cedeño is a 77 year old female who was admitted on March 09, 2017 at 00:20 for Sepsis,Pneumonia Hospital Course [id number] Discharge Discharge Disposition Patient was discharged to Home with Discharge Diagnoses: Smitha Olea NP Mar 19, 2017 12:33
--- NOTE | 2017-03-20 03:00 | Discharge Summary 2 SIG ---
DATE OF ADMISSION: 03/09/2017 DATE OF DISCHARGE: 03/18/2017 ATTENDING PHYSICIAN: Tereso Toro M.D. CONSULTANTS: 1. Barbara Sky M.D. 2. Pedro Luis Hou M.D. 3. René Machado M.D. BRIEF HOSPITAL COURSE: The patient is a 77-year-old female, presented in the hospital for fever and congestion. On evaluation at ED, she was noted to have a temperature of 102. Chest x-ray showed right lower lobe interstitial infiltrate. She was started on antibiotic and was admitted for further care. EKG done was normal sinus rhythm. She was admitted to telemetry and was seen by Dr. Sky. She was given respiratory treatment and DVT prophylaxis with Heparin subcutaneous and G-tube feedings were started. She was also seen by Dr. Hou. The patient was given Levaquin and Flagyl. On 03/11/2017, the she developed labored breathing with bilateral expiratory wheezing. The patient was then transferred to ICU for closer monitoring. She was eventually downgraded to KATERINE and was followed by Dr. Machado. BNP was more than 10,000. She was given IV Lasix. Echocardiogram showed ejection fraction of 55% with no pericardial effusion. She was continued on low-dose of beta-phoebe via G-tube. She had a PICC line inserted to the left arm. BNP trended down. Sputum culture showed normal upper respiratory chantal. Blood culture did not isolate any growth. She came in with multiple pressure ulcers. Wound care was rendered. Wound culture showed growth of VRE and gram-negative rods, which are colonizers. She was able to be weaned from BiPAP and was placed on Ventimask. Chest x-ray showed interstitial edema with right pleural effusion. Chest ultrasound showed a small amount of effusion. She completed 7 days of antibiotic treatment with Levaquin and Flagyl. Family refused any placement and per family request the patient was discharged home with home health. FINAL DIAGNOSES: 1. Sepsis. 2. Acute respiratory failure. 3. Aspiration pneumonia. 4. Old cerebrovascular accident with left hemiparesis. 5. Diabetes type 2, uncontrolled. 6. Hypertension. 7. Acute congestive heart failure diastolic in nature. 8. Hypertension with episode of hypotension initially. 9. Dysphagia on gastrostomy tube feeds. 10. Moderate pulmonary hypertension. 11. Anemia. 12. Sacral decubitus ulcer stage IV, present on admission. Barbara Sky M.D. I have been assigned to dictate discharge summary on this account and I was not involved in the patient's management. Smitha Olea N.P. DR: DESTINEY JOB#: [id number] CC: ASHLYN
== END 2017-03-18 19:00 | disposition home health service (06) | DRG 871 ==
LOC: EDBD 22:33 → EMR 22:52 → 2E 03-09 00:20 → EDBEDREQ 03-09 00:57 → 4W 03-10 14:40 → ICU 03-11 15:25 → 2W 03-13 18:32 → 4E 03-16 15:32
PROC: 5A09457 Assistance with Respiratory Ventilation, 24-96 Consecutive Hours, Continuous Positive Airway Pressure (ICD-10-PCS; principal; 2017-03-11)
PROC: 02HV33Z Insertion of Infusion Device into Superior Vena Cava, Percutaneous Approach (ICD-10-PCS; principal; 2017-03-11)
DX: A41.9 Sepsis, unspecified organism (principal); J69.0 Pneumonitis due to inhalation of food and vomit; J96.00 Acute respiratory failure, unspecified whether with hypoxia or hypercapnia; I50.31 Acute diastolic (congestive) heart failure; L89.154 Pressure ulcer of sacral region, stage 4; L89.219 Pressure ulcer of right hip, unspecified stage; Z43.0 Encounter for attention to tracheostomy; E87.0 Hyperosmolality and hypernatremia; L89.229 Pressure ulcer of left hip, unspecified stage; I27.2 Other secondary pulmonary hypertension; I69.354 Hemiplegia and hemiparesis following cerebral infarction affecting left non-dominant side; Z43.1 Encounter for attention to gastrostomy; Z86.73 Personal history of transient ischemic attack (TIA), and cerebral infarction without residual deficits; I10 Essential (primary) hypertension; E11.65 Type 2 diabetes mellitus with hyperglycemia; D64.9 Anemia, unspecified; I69.320 Aphasia following cerebral infarction; L89.890 Pressure ulcer of other site, unstageable
CPT/HCPCS: 36415; 36569; 36600; 71010; 76604; 76937; 80048; 80053; 81003; 82378; 82550; 82553; 82803; 82962; 83605; 83735; 83880; 84100; 84439; 84443; 84484; 85007; 85025; 87040; 87070; 87081; 87181; 87205; 93005; 93306; 94640; 94660; 94664; 94760; C9399; J1815; J7620

== ENCOUNTER 2017-09-30 16:26 | Emergency (ER) | payer MEDICARE, OTHER ==
[~2017-09-30] VITALS: Ht 165.1 cm; Wt 64.4 kg
[~2017-09-30 16:26] MED LIST changes: +ALBUTEROL2.5 MG/3 M INH; +JANUVIA25 MG GT; +Metoprolol Tartrate GT; +NEXIUM40 MG GT; +TEMAZEPAM30 MG GT
[2017-09-30 16:33] VITALS: BP 132/76
--- NOTE | 2017-09-30 17:46 | Emergency Room Report ---
History of Present Illness General Chief Complaint: General Complaint Source: Patient Present Illness HPI 77-year-old female presents ED for evaluation. Daughter at bedside states that patient's G-tube fell out today at home. Patient normally has a 20 Greek G- tube. On arrival patient showing no signs of distress. Denies fevers or chills. No chest pain or shortness of breath. No nausea or vomiting. No other aggravating or leading factors. No other associated symptoms Allergies: Coded Allergies: No Known Allergies (Verified , 08/14/06) Patient History Past Medical History: HTN, dementia, psych hx Past Surgical History: other - gtube Pertinent Family History: none Social History: Denies: smoking, alcohol use, drug use Now: No Immunizations: UTD Reviewed Nursing Documentation: PMH: Agreed, PSxH: Agreed Nursing Documentation-PMH Hx Cardiac Problems: Yes Hx Hypertension: Yes Hx Diabetes: Yes Hx Cancer: Yes - breast Hx Neurological Problems: Yes - Parkinsons Hx Cerebrovascular Accident: Yes Hx Parkinson's Disease: Yes Hx Seizures: Yes Review of Systems All Other Systems: limited Physical Exam Vital Signs Date Time Temp Pulse Resp B/P (MAP) Pulse Ox O2 Delivery O2 Flow Rate FiO2 09/30/17 16:18 97.9 64 16 132/76 97 Room Air Sp02 EP Interpretation: reviewed, normal General Appearance: no apparent distress, alert, GCS 15, non-toxic Head: normocephalic Eyes: bilateral eye normal inspection, bilateral eye PERRL ENT: normal ENT inspection Neck: normal inspection Respiratory: normal inspection Cardiovascular #1: normal inspection Gastrointestinal: normal bowel sounds, non tender, soft, non-distended, no guarding, no rebound, other - Gtube site C/D/I Rectal: deferred Genitourinary: no CVA tenderness Musculoskeletal: normal inspection Neurologic: other - dementoa Psychiatric: other - dementia Skin: normal inspection Lymphatic: normal inspection Procedures Additional Procedure Procedure Narrative G-tube placement Patient placed on stretcher. Old G-tube is removed by deflating the balloon using syringe. G-tube site is inspected with no contraindications to G-tube placement. 20 F G-tube slowly inserted until resistance is met; G-tube balloon is slowly filled with 20 mL of normal saline and slowly retracted back until resistance is met. G-tube placement is confirmed with KUB study using Gastrografin Medical Decision Making Diagnostic Impression: Primary Impression: Malfunction of gastrostomy tube ER Course Hospital Course 77-year-old female presents to ED for G-tube placement. Clinical course Patient placed on stretcher. After initial history and physical I replaced G- tube and inflate the balloon. G-tube placement confirmed with KUB study. Patient remained stable without any signs of distress. daughter aware and patient subsequently discharged back to home Diagnosis - malfunction of G tube stable and discharged back to home. Followup with PMD. Return to ED if symptoms recur or worsen Other X-Ray Diagnostic Results Other X-Ray Diagnostic Results : X-Ray ordered: KUB # of Views/Limited Vs Complete: 1 View Indication: Other - Gtube placement EP Interpretation: Yes Interpretation: nonspecific bowel gas, no sbo, other - Gtube in place Impression: Other - Gtube in place Electronically Signed by: Electronically signed by Eduin Lang MD Last Vital Signs Date Time Temp Pulse Resp B/P (MAP) Pulse Ox O2 Delivery O2 Flow Rate FiO2 09/30/17 16:33 97.9 16 132/76 97 Room Air 09/30/17 16:18 64 Status: improved Disposition: HOME, SELF-CARE Condition: Stable Patient Instructions: Gastrostomy Tube Home Guide, Adult EDUIN LANG M.D. Sep 30, 2017 17:46
[2017-09-30 18:47] VITALS: BP 118/64
[2017-09-30 18:59] VITALS: BP 118/64
--- NOTE | 2017-10-01 08:45 | Diagnostic Imaging Report ---
Indication: Status post gastrostomy replacement Technique: Supine view of the abdomen after injection of water-soluble contrast into gastrostomy Comparison: 12/01/2016 Findings: Contrast opacifies the stomach, duodenum, and small bowel. No contrast extravasation is demonstrated. The bowel gas pattern is unremarkable. The gastrostomy balloon is seen to be in the expected region of the gastric antrum. Incidentally noted is an inferior vena cava filter Impression: Satisfactory position of gastrostomy tube This agrees with the preliminary interpretation provided overnight by [facility] service.
== END 2017-09-30 19:00 | disposition home or self-care (01) ==
LOC: EDBD 16:26 → EMR 17:00
DX: K94.23 Gastrostomy malfunction (principal); Y83.3 Surgical operation with formation of external stoma as the cause of abnormal reaction of the patient, or of later complication, without mention of misadventure at the time of the procedure; Y92.009 Unspecified place in unspecified non-institutional (private) residence as the place of occurrence of the external cause; I10 Essential (primary) hypertension; E11.9 Type 2 diabetes mellitus without complications; F03.90 Unspecified dementia, unspecified severity, without behavioral disturbance, psychotic disturbance, mood disturbance, and anxiety; Z86.73 Personal history of transient ischemic attack (TIA), and cerebral infarction without residual deficits; G20 Parkinson's disease
CPT/HCPCS: 43760; 74000; 99283

== ENCOUNTER 2018-10-11 19:03 | Inpatient (IN) | payer MEDICARE, OTHER ==
[~2018-10-11] VITALS: Ht 162.6 cm; Wt 54.4 kg
[2018-10-11] MEDS ORDERED: NS 1000ml 1,600 ML IVLG ONE (19:15)
--- NOTE | 2018-10-11 19:18 | Emergency Room Report ---
History of Present Illness General Chief Complaint: Altered Level of Consciousness Source: Medical Record, EMS Present Illness HPI This is a 78-year-old female with multiple medical problems including hypertension and diabetes and COPD. She presents with altered mental status and fever. Per EMS, this practitioner visit patient at the [facility] and noticed that she has respiratory distress, hypoxia and altered mental status. This has been ongoing for about a week. Worse today. Unable to get any other history from patient. Her oxygenation was low per EMS. They put her on oxygen and brought her here. She was noted to have a fever also. Noted to have a cough and labored rhonchorous breathing. Allergies: Coded Allergies: No Known Allergies (Verified , 08/14/06) Patient History Past Medical History: see triage record, old chart reviewed, DM, HTN, COPD Past Surgical History: other Pertinent Family History: none Social History: Denies: smoking Now: No Immunizations: other Reviewed Nursing Documentation: PMH: Agreed; PSxH: Agreed Nursing Documentation-PMH Hx Cardiac Problems: Yes Hx Hypertension: Yes Hx Diabetes: Yes Hx Cancer: Yes - breast Hx Neurological Problems: Yes - Parkinsons Hx Cerebrovascular Accident: Yes Hx Parkinson's Disease: Yes Hx Seizures: Yes Review of Systems Constitutional: Reports: fever, malaise, weakness Eye: Denies: eye pain, blurred vision ENT: Denies: ear pain, nose congestion, throat swelling Respiratory: Reports: cough, shortness of breath Cardiovascular: Denies: chest pain, palpitations Gastrointestinal: Denies: abdominal pain, diarrhea, nausea, vomiting Musculoskeletal: Denies: back pain, joint pain Skin: Denies: rash Neurological: Denies: headache, numbness Endocrine: Denies: increased thirst, increased urine Hematologic/Lymphatic: Denies: easy bruising All Other Systems: negative except mentioned in HPI Physical Exam Vital Signs Date Time Temp Pulse Resp B/P (MAP) Pulse Ox O2 Delivery O2 Flow Rate FiO2 10/11/18 19:03 116 22 123/60 98 Nasal Cannula vitals with fever and tachycardia Sp02 EP Interpretation: abnormal General Appearance: moderate distress, cachetic, lethargic, Chronically Ill, Stupor Head: normocephalic, atraumatic Eyes: bilateral eye PERRL, bilateral eye EOMI ENT: hearing grossly normal, dry mucus membranes Neck: full range of motion, supple, no meningismus Respiratory: chest non-tender, respiratory distress, decreased breath sounds, accessory muscle use, rhonchi Cardiovascular #1: no murmur, tachycardia Gastrointestinal: normal bowel sounds, non tender, no mass, no organomegaly, no bruit, non-distended, other - Gtube Musculoskeletal: back normal, normal range of motion Neurologic: grossly normal Skin: warm/dry Procedures Critical Care Time Critical Care Time Critical care is mandated in this patient who presented with sepsis from pneumonia. Patient require my urgent intervention to attenuate the risks of metabolic collapse which may lead to cardiovascular collapse and . Critical care time is 35 minutes excluding any reportable procedure. Critical care time included evaluation, multiple reevaluation, looking at old charts, interpreting laboratory and diagnostic data, discussing case with patient and family and consultants, and charting. Medical Decision Making Diagnostic Impression: Primary Impression: Sepsis Qualified Codes: A41.9 - Sepsis, unspecified organism Additional Impressions: Healthcare-associated pneumonia Aspiration pneumonia Qualified Codes: J69.0 - Pneumonitis due to inhalation of food and vomit Toxic metabolic encephalopathy Acute and chronic respiratory failure Proteinuria Qualified Codes: R80.9 - Proteinuria, unspecified JEFFY (acute kidney injury) ER Course Patient resents with acute on chronic respiratory failure with sepsis from pneumonia. I also cover for potential aspiration pneumonia. She is hypoxic requiring BiPAP. Will admitted to stepdown unit. Prognosis poor because of her condition. Patient more awake after IV fluid. Antibiotics given to cover for healthcare associated pneumonia also. I discussed the case with Dr. Toro who will make for Dr. Renner. Lab Results Impression labs showed elevated BUN/creatin EKG Diagnostic Results Rate: tachycardiac Rhythm: NSR ST Segments: other - NSST changes Rhythm Strip Diag. Results Rhythm Strip Time: 19:17 EP Interpretation: yes Rate: 100 Rhythm: NSR, no PVC's, no ectopy Chest X-Ray Diagnostic Results Chest X-Ray Diagnostic Results : Chest X-Ray Ordered: Yes # of Views/Limited/Complete: 1 View Indication: Shortness of Breath EP Interpretation: Yes Interpretation: no effusion, no pneumothorax, other - RLL infiltrate Impression: Other - RLL infiltrate Last Vital Signs Date Time Temp Pulse Resp B/P (MAP) Pulse Ox O2 Delivery O2 Flow Rate FiO2 10/11/18 19:03 116 22 123/60 98 Nasal Cannula Status: improved Disposition: ADMITTED INPATIENT Condition: Critical Anthony Del Valle MD Oct 11, 2018 19:18
[2018-10-11 19:25] VITALS: BP 123/60
--- NOTE | 2018-10-11 19:25 | NUR ---
ED Nurse Note: pt fever 101.8 via rectal, MD aware.Pt rodriguez 16 g inserted per MD order, pt tolerated well, 30cc yellow urine returned, 10cc NS inserted. pt cleaned and changed, tylenol administered per MD order, iv inserted 20 g in left ac, dressing applied.
--- NOTE | 2018-10-11 19:25 | NUR ---
ED Nurse Note: pt brought in by [facility] c/o increase aloc and sob started today. Pt o2 sat 80 %, notified and started o2 4 L via NC, o2 sat went up to 97%. Pt AA&ox1, gcs=9, tachypnea, noted congestion, LS= rhonchi at bases, noted Gtube and mild distended and firm abd. Noted soiled dressing around g-tube, dressing color brownish color, noted yellowish brown discharge around the gtube site. Pt has healed pressure ulcer on buttock area, skin thin and weak, erlin hands and BLE contracture noted. Pt on liner man, sinus tachy, will continue to monitor.
[2018-10-11] MEDS ORDERED: Acetaminophen 650 MG SUPP RECTAL ONE (19:30)
[2018-10-11 19:54] LABS: APPEARANCE,URINE SLIGHTLY CLOUDY; BILIRUBIN, URINE NEGATIVE (NEGATIVE); COLOR,URINE PALE YELLOW; GLUCOSE, URINE (UA) NEGATIVE (NEGATIVE); KETONES,URINE NEGATIVE (NEGATIVE); LEUKOCYTE ESTERASE ,URINE NEGATIVE (NEGATIVE); NITRITE,URINE NEGATIVE (NEGATIVE); PH,URINE 5 (4.5-8.0); PROTEIN,URINE 2+ (NEGATIVE); UROBILINOGEN,URINE NORMAL MG/DL (0.0-1.0)
[2018-10-11 20:00] LABS: ANION GAP 11 mmol/L (5-15); BLOOD UREA NITROGEN 77 mg/dL (7-18); CALCIUM 9.7 MG/DL (8.5-10.1); CARBON DIOXIDE 27 MMOL/L (21-32); CHLORIDE 94 MMOL/L (98-107); CREATININE 1.5 MG/DL (0.55-1.30); POTASSIUM 4.9 MMOL/L (3.5-5.1); SODIUM 132 MMOL/L (136-145)
[2018-10-11 20:04] LABS: BASOPHILS % (AUTO) 0.7 % (0.0-2.0); EOSINOPHILS % (AUTO) 0.1 % (0.0-3.0); HEMATOCRIT 37.3 % (37.0-47.0); HEMOGLOBIN 12.4 G/DL (12.0-16.0); LYMPHOCYTES % (AUTO) 7.8 % (20.0-45.0); MEAN CORPUSCULAR VOLUME 91 FL (80-99); MONOCYTES % (AUTO) 7.7 % (1.0-10.0); NEUTROPHILS % (AUTO) 83.7 % (45.0-75.0); PLATELET COUNT 148 K/UL (150-450); RED BLOOD COUNT 4.09 M/UL (4.20-5.40); RED CELL DISTRIBUTION WIDTH 13.1 % (11.6-14.8)
[2018-10-11 20:15] LABS: ALANINE AMINOTRANSFERASE 35 U/L (12-78); ALBUMIN/GLOBULIN RATIO 0.6 (1.0-2.7); ALKALINE PHOSPHATASE 90 U/L (46-116); ASPARTATE AMINO TRANSFERASE 45 U/L (15-37); BILIRUBIN,TOTAL 0.4 MG/DL (0.2-1.0); CKMB 0.9 NG/ML (0.0-3.6); CREATINE KINASE 207 U/L (26-308)
[2018-10-11 20:25] VITALS: BP 100/53
[2018-10-11 21:30] VITALS: BP 119/86
--- NOTE | 2018-10-11 21:44 | NUR ---
PATIENTS NICE CALLED ([phone]. WHO STATES SHE DOESNOT LIKE [facility] THEY WERE NOT SUPPOSE TO SEND HER HERE . ANYTHING TO BE DONE TO PATIENT SHE HAS TO BE CONTACTED FIRST.
--- NOTE | 2018-10-11 21:45 | NUR ---
ED Nurse Note: spoke with granddaughter and daughter regarding pt's care, grand daughter states "I want to know everything before you guys do it." Pt's condition discussed with next of kin (daughter), pt family member verbalized understanding and agrees with plan.
--- NOTE | 2018-10-11 22:25 | NUR ---
ED Nurse Note: MD notified regarding pt's o2 sat 86%, breathing tx/bipap ordered. called RT.
[2018-10-11] MEDS ORDERED: Albuterol ud Inhalation HHN ONE (22:30)
[2018-10-11] MEDS ORDERED: JANUVIA25 MG GT (23:06)
[2018-10-11] MEDS ORDERED: IPRATROPIU0.2 MG/1 M HHN (23:06)
[2018-10-11] MEDS ORDERED: ZINC SULFATE220 M1 GT (23:06)
[2018-10-11] MEDS ORDERED: MIRALAX17 G2 GT (23:06)
[2018-10-11] MEDS ORDERED: PATANOL1 DROP OD (23:06)
[2018-10-11] MEDS ORDERED: BISACODYL5 MG RC (23:06)
[2018-10-11] MEDS ORDERED: MILK OF MA400 MG/51 ORAL (23:06)
[2018-10-11] MEDS ORDERED: HUMALOG SS (23:06)
[2018-10-11] MEDS ORDERED: ASPIR 8181 MG GT (23:06)
[2018-10-11] MEDS ORDERED: EDARBYCLOR 40-1 EACH GT (23:06)
[2018-10-11] MEDS ORDERED: ALBUTEROL2.5 MG/3 M INH (23:06)
[2018-10-11] MEDS ORDERED: LANTUS SOL100 UNIT/1 SUBQ (23:06)
[2018-10-11] MEDS ORDERED: MULTIVIT DT (23:06)
[2018-10-11] MEDS ORDERED: MELATONIN3 MG ORAL (23:06)
[2018-10-11] MEDS ORDERED: ACETAMINOPHEN325 M1 ORAL (23:06)
[2018-10-11] MEDS ORDERED: FLEET ENEMA133 ML RECTAL (23:06)
[2018-10-11 23:20] VITALS: BP 141/77
[2018-10-12] VITALS (9 sets, daily range): BP systolic 77–123; BP diastolic 38–68
--- NOTE | 2018-10-12 | NUR ---
ED Nurse Note: Md notified regarding pt's blood pressure, NS 1L bolus order obtained and started.
--- NOTE | 2018-10-12 00:45 | NUR ---
ED Nurse Note: pt transferred to SDU, report given to receiving RN Angeles and endorsed care, pt was transferred with manager cardiac, o2 and Iv fluid, iv intact and patent. pt changed and cleaned prior to transport.
--- NOTE | 2018-10-12 01:00 | NUR ---
NURSE NOTES: Received report from Adela HAMLIN from ER, pt. transferred from ER, pt. appears to be alert to name, no signs and symptoms of acute cardiac or respiratory distress noted, bed in lowest, bed in lowest position and call light within easy reach, bed alarm on, side rails up x's 3- safety brakes engaged, cardiac monitoring placed on patient, VS taken, pt. oriented to room and pt. teaching done, full body assessment done- healed sacral wound- picture taken, G tube intact and patent- no residual noted, Roberts intact and draining to gravity, Left AC 20G IV intact and patent, comfort measures provided, caregiver at bedside, safety measures continued, will continue with plan of care.
--- NOTE | 2018-10-12 01:33 | NUR ---
NURSE NOTES: called DR. Toro for admitting orders for new pt. admit- per voicemail to leave msg for DR. Dimitrios Daly- waiting for call back from doctor.
--- NOTE | 2018-10-12 02:26 | NUR ---
NURSE NOTES: second call -left msg for Dr. Daly for new patient admitting orders- waiting for call back from doctor.
--- NOTE | 2018-10-12 03:15 | NUR ---
NURSE NOTES: DR. Daly, called with admitting orders- orders read back and carried out.
--- NOTE | 2018-10-12 03:15 | NUR ---
NURSE NOTES: DR. Daly called with admitting orders- to continue only certain medications from halfway- ASA 81mg, Januvia, Patanol, NovoLog sensitive scale, Nexium, DuoNeb Q4hrs prn, Azilsartan med/chlorthalidone 40-12.5mg, zinc, metoprolol, code status- full code, Zosyn 3.375 Q8hrs IV, Tylenol 650mg Q4hrs prn for temp above 101>, CBC, CMP, Flagyl 500mg Q8hrs IV, Diet Glucerna 1.5 at 35cc/hr, NS at 50cc/hr- will carry out orders.
--- NOTE | 2018-10-12 03:21 | NUR ---
NURSE NOTES: notified malt house operator Mrs Tere Singleton- regarding two messages left for DR. Dimitrios Daly for new pt. admitting orders.
--- NOTE | 2018-10-12 03:30 | NUR ---
NURSE NOTES: granddaughter calling - notified her of doctors orders as she was asking and is pts next of kin- per granddaughter- she does not want pt. to be on Patanol, Nexium, Azilsartan med/chlorthalidone, and metoprolol because it causes pt. to have arrhythmias- but instead pt. to be on Edarbyclor 40-12.5- and also would like pt. to be on mattress- will notify doctor in am.
[2018-10-12] MEDS ORDERED: Acetaminophen 650mg/20.3ml GT PRN (04:30)
[2018-10-12] MEDS ORDERED: Piperacillin/Tazobactam 3.375 GM in NS 110 ML IVPB SCH (05:00)
[2018-10-12 05:38] LABS: ALANINE AMINOTRANSFERASE 33 U/L (12-78); ALBUMIN 2.7 G/DL (3.4-5.0); ALBUMIN/GLOBULIN RATIO 0.6 (1.0-2.7); ALKALINE PHOSPHATASE 79 U/L (46-116); ANION GAP 8 mmol/L (5-15); ASPARTATE AMINO TRANSFERASE 40 U/L (15-37); BILIRUBIN,TOTAL 0.4 MG/DL (0.2-1.0); BLOOD UREA NITROGEN 64 mg/dL (7-18); CARBON DIOXIDE 28 MMOL/L (21-32); CHLORIDE 101 MMOL/L (98-107); CREATININE 1.1 MG/DL (0.55-1.30); POTASSIUM 4.4 MMOL/L (3.5-5.1); SODIUM 137 MMOL/L (136-145)
[2018-10-12] MEDS: Piperacillin/Tazobactam 3.375 GM in NS 110 ML IVPB SCH ×3 (05:39→20:15)
[2018-10-12 05:47] LABS: BASOPHILS % (AUTO) 1.1 % (0.0-2.0); HEMATOCRIT 35.1 % (37.0-47.0); HEMOGLOBIN 11.6 G/DL (12.0-16.0); LYMPHOCYTES % (AUTO) 17.8 % (20.0-45.0); MEAN CORPUSCULAR VOLUME 92 FL (80-99); MONOCYTES % (AUTO) 12.2 % (1.0-10.0); NEUTROPHILS % (AUTO) 68.9 % (45.0-75.0); PLATELET COUNT 129 K/UL (150-450); RED BLOOD COUNT 3.82 M/UL (4.20-5.40); RED CELL DISTRIBUTION WIDTH 13.5 % (11.6-14.8); WHITE BLOOD COUNT 6.6 K/UL (4.8-10.8)
[2018-10-12] MEDS ORDERED: sitaGLIPtin 25mg tab GT SCH (06:30)
[2018-10-12] MEDS ORDERED: NovoLOG Insulin Flexpen SUBQ SCH (06:30)
--- NOTE | 2018-10-12 06:42 | NUR ---
NURSE NOTES: left msg for DR. Daly regarding granddaughter not wanting patient to take some medications ordered by doctor- waiting for call back from doctor.
--- NOTE | 2018-10-12 07:15 | NUR ---
HAND-OFF: Report given to Araseli Rn, pt. stable and no s/s of acute distress noted. Nurse aware to follow up on medication orders given by MD that granddaughter did not want administered. Also aware to follow up on mattress that granddaughter is wanting for patient. Also aware to f/u with granddaughter if any questions.
--- NOTE | 2018-10-12 07:32 | NUR ---
NURSE NOTES: Januvia and Novolog not administered due to no feeding available- housecleaner floor aware. waiting for feeding Glucerna 1.5.
--- NOTE | 2018-10-12 08:01 | NUR ---
NURSE NOTES: Report received from BOUBACAR Lowery. Observed patient in bed sleeping. Open eyes by touch but non-verbal. Receiving 5L of oxygen via N/C with no distress noted. IVF running at prescribed rate. No s/s of pain at this time. GT site intact. F/C intact and draining well. Bed in lowest position. Call light within reach. Will continue to monitor.
[2018-10-12] MEDS ORDERED: Aspirin Baby 81mg GT SCH (09:00)
--- NOTE | 2018-10-12 09:59 | NUR ---
Noted with low blood pressure of 77/52. Called and informed Dr. Toro with new order. Order carried out.
--- NOTE | 2018-10-12 11:28 | NUR ---
HAND-OFF: Report given to Ernestine Cary RN.
--- NOTE | 2018-10-12 11:30 | NUR ---
NURSE NOTES: Assumed pt care ,report received from Araseli HAMLIN.pt in bed appears lethargic,noted no resp distress,on 3 3L NXC no signs of discomfort or pain SR on the monitor,pt with GTF Glucerna 1.5 at 30 ml/hr,noted no residual,rodriguez cath for ue=rinary retention,draining yellow urine,pt with IV site to LAC with NS running at 50m/hr,site intact ,SR up x2,HOB elevated,bed lock in lowest position,caregiver at bedside,will continue with plan of care.
--- NOTE | 2018-10-12 12:36 | History & Physical ---
History and Physical History & Physicial Dictated for Int Med-Dr Toro no. [id number]. Dimitrios Daly MD Oct 12, 2018 12:36
[2018-10-12] MEDS: NovoLOG Insulin Flexpen SUBQ SCH ×2 (12:40→18:37)
[2018-10-12] MEDS ORDERED: Vancomycin 750mg/NS 250ml IVPB SCH (14:00)
--- NOTE | 2018-10-12 14:00 | NUR ---
NURSE NOTES: Dr Daly at bedside,informed re pt need for anti embolism medic, said he will order Heparin and venous duplex.
--- NOTE | 2018-10-12 19:20 | NUR ---
NURSE NOTES: Received report from Olga RN, pt. appears to be alert to name adn opens eyes- non-verbal, no signs and symptoms of acute cardiac or respiratory distress noted, bed in lowest, bed in lowest position and call light within easy reach, bed alarm on, side rails up x's 3- safety brakes engaged, cardiac monitoring on, G tube intact and patent running Glucerna 1.5 at 35cc/hr- no residual noted, Roberts intact and draining to gravity, Left AC 20G IV intact and patent, left hand 22G IV intact and patent, comfort measures provided, pt. is on SPR mattress, safety measures continued, will continue with plan of care.
--- NOTE | 2018-10-12 19:30 | NUR ---
HAND-OFF: Report given to Beverley Ospina RN,no distress presented,caregiver at bedside..
--- NOTE | 2018-10-12 20:31 | Infectious Diseases Prog Note ---
Assessment/Plan Problems: (1) Aspiration pneumonia Assessment & Plan: continue vancomycin and zosyn empirically pending blood cultures and sputum culture , aspiration precaution , keep HOB > 30 degree .monitor CXR (2) Sepsis Assessment & Plan: due to the above , continue wide spectrum antibiotics pending cultures (3) Hypotension Assessment & Plan: rule out sepsis, continue wide spectrum antibiotics with hydration (4) Fever Assessment & Plan: due to pneumonia , continue tylenol , and antibiotics (5) Acute respiratory failure Assessment & Plan: due to the above , continue high flow oxygen and inhalers, monitor ABG (6) JEFFY (acute kidney injury) Assessment & Plan: due to hypotension and sepsis , continue hydration, with close monitor of renal function, avoid nephrotoxics (7) Toxic metabolic encephalopathy Assessment & Plan: continue antibiotics and hydration, monitor in tele (8) Diabetes Assessment & Plan: recommend tight glycemic control to keep blood glucose between 100-140 Subjective Allergies: Coded Allergies: No Known Allergies (Verified , 08/14/06) Objective Vital Signs Last 24 Hour Vital Signs Date Time Temp Pulse Resp B/P (MAP) Pulse Ox O2 Delivery O2 Flow Rate FiO2 10/12/18 16:00 97.7 96 26 95/43 (60) 92 96 10/12/18 16:00 Nasal Cannula 5.0 Nasal Cannula 5.0 10/12/18 15:33 90 10/12/18 12:00 Nasal Cannula 5.0 Nasal Cannula 5.0 10/12/18 12:00 97.5 86 26 96/46 (63) 92 86 10/12/18 11:33 88 10/12/18 10:37 97/46 (63) 10/12/18 08:17 96 10/12/18 08:00 Nasal Cannula 5.0 Nasal Cannula 5.0 10/12/18 08:00 97.9 88 28 77/52 (60) 92 10/12/18 04:00 92 10/12/18 04:00 Nasal Cannula 5.0 Nasal Cannula 5.0 10/12/18 04:00 97.6 100 26 118/68 (85) 93 10/12/18 02:50 85 10/12/18 01:28 99.8 116 24 104/78 94 Nasal Cannula 5.0 10/12/18 01:00 Nasal Cannula 5.0 Nasal Cannula 5.0 10/12/18 01:00 Nasal Cannula 5.0 Nasal Cannula 5.0 10/12/18 01:00 97.6 101 24 123/67 (85) 93 10/11/18 23:20 99.7 105 22 141/77 97 Non-Rebreather 15.0 100 10/11/18 22:44 100 10/11/18 22:35 103 22 100 Non-Rebreather 15.0 100 10/11/18 21:30 99.9 100 24 119/86 100 Nasal Cannula 4.0 Height (Feet): 5 Height (Inches): 4.00 Weight (Pounds): 120 Microbiology Date/Time Source Procedure Growth Status 10/11/18 19:23 Nasal Nares Influenza Types A,B Antigen (MAMIE) - Final Complete Laboratory Tests Test 10/11/18 23:05 10/12/18 04:40 Prothrombin Time 10.7 SEC (9.30-11.50) Prothromb Time International Ratio 1.0 (0.9-1.1) Activated Partial Thromboplast Time 31 SEC (23-33) White Blood Count 6.6 K/UL (4.8-10.8) Red Blood Count 3.82 M/UL (4.20-5.40) L Hemoglobin 11.6 G/DL (12.0-16.0) L Hematocrit 35.1 % (37.0-47.0) L Mean Corpuscular Volume 92 FL (80-99) Mean Corpuscular Hemoglobin 30.3 PG (27.0-31.0) Mean Corpuscular Hemoglobin Concent 32.9 G/DL (32.0-36.0) Red Cell Distribution Width 13.5 % (11.6-14.8) Platelet Count 129 K/UL (150-450) L Mean Platelet Volume 7.4 FL (6.5-10.1) Neutrophils (%) (Auto) 68.9 % (45.0-75.0) Lymphocytes (%) (Auto) 17.8 % (20.0-45.0) L Monocytes (%) (Auto) 12.2 % (1.0-10.0) H Eosinophils (%) (Auto) 0.0 % (0.0-3.0) Basophils (%) (Auto) 1.1 % (0.0-2.0) Sodium Level 137 MMOL/L (136-145) Potassium Level 4.4 MMOL/L (3.5-5.1) Chloride Level 101 MMOL/L (98-107) Carbon Dioxide Level 28 MMOL/L (21-32) Anion Gap 8 mmol/L (5-15) Blood Urea Nitrogen 64 mg/dL (7-18) H Creatinine 1.1 MG/DL (0.55-1.30) Estimat Glomerular Filtration Rate mL/min (>60) Glucose Level 138 MG/DL (74-106) H Calcium Level 9.0 MG/DL (8.5-10.1) Total Bilirubin 0.4 MG/DL (0.2-1.0) Aspartate Amino Transf (AST/SGOT) 40 U/L (15-37) H Alanine Aminotransferase (ALT/SGPT) 33 U/L (12-78) Alkaline Phosphatase 79 U/L (46-116) Total Protein 7.0 G/DL (6.4-8.2) Albumin 2.7 G/DL (3.4-5.0) L Globulin 4.3 g/dL Albumin/Globulin Ratio 0.6 (1.0-2.7) L Current Medications Medications (Trade) Dose Ordered Sig/Christopher Route PRN Reason Start Time Stop Time Status Last Admin Dose Admin Acetaminophen (Tylenol) 650 mg Q4H PRN GT Mild Pain/Temp > 101 10/12/18 04:30 11/11/18 04:29 Aspirin (ASA) 81 mg DAILY GT 10/12/18 09:00 11/11/18 08:59 10/12/18 08:41 Dextrose (Dextrose 50%) 25 ml Q30M PRN IV Hypoglycemia 10/12/18 04:30 11/11/18 04:29 Dextrose (Dextrose 50%) 50 ml Q30M PRN IV Hypoglycemia 10/12/18 04:30 11/11/18 04:29 Insulin Aspart (NovoLOG) EVERY 6 HOURS SUBQ 10/12/18 12:00 11/11/18 06:29 10/12/18 18:37 Metronidazole 100 ml @ 100 mls/hr Q8HR IVPB 10/12/18 06:00 10/19/18 05:59 10/12/18 14:57 Piperacillin Sod/ Tazobactam Sod 3.375 gm/Sodium Chloride 110 ml @ 220 mls/hr Q8H IVPB 10/12/18 05:00 10/19/18 04:59 10/12/18 20:15 Sitagliptin Phosphate (Januvia) 25 mg ACBREAKFAST GT 10/12/18 06:30 11/11/18 06:29 Sitagliptin Phosphate (Januvia) 100 mg ACBREAKFAST GT 10/12/18 06:30 11/11/18 06:29 Sodium Chloride 1,000 ml @ 50 mls/hr Q20H IV 10/12/18 04:30 11/11/18 04:29 10/12/18 20:16 Vancomycin HCl (Vanco rx to dose) 1 ea DAILY PRN MISC Per rx protocol 10/12/18 12:15 11/11/18 12:14 Vancomycin/Sodium Chloride 250 ml @ 166.667 mls/hr Q24H IVPB 10/12/18 14:00 10/17/18 13:59 10/12/18 14:58 Porfirio Valentine M.D. Oct 12, 2018 20:31
--- NOTE | 2018-10-12 22:30 | NUR ---
NURSE NOTES: pt. observed on monitor desating to low 80's%- Respiratory therapist called and pt. was placed non-rebreather- pt. continued to desat- ABGS were ordered by charge nurse Henry- waiting for ABG results while pt. remains on NRB mask- will continue to monitor pt. and with plan of care.
--- NOTE | 2018-10-12 22:41 | NUR ---
NURSE NOTES: left msg for DR. Daly regarding ABG results, ph 7.0, CO2 118.4, PO2 85.1, Bicarb 28.7 and Sat 94%- per Respiratory therapist suggesting BIPAP or intubate- waiting for call back from doctor.
--- NOTE | 2018-10-12 22:45 | NUR ---
NURSE NOTES: per DR. Daly to call DR. Lynch with ABG results.
--- NOTE | 2018-10-12 22:55 | NUR ---
NURSE NOTES: DR. Lynch notified- of ABG results, per Doctor to call [employer] stat/ intubate pt. stat and transfer pt. to ICU stat, vent settings AC 20, TV 400 and PEEP of 5 and to keep Fio2 between 90-96%, D5NS at 75cc/hr and stop NS at 50cc/hr, Heparin sub Q 5000 BID and Doxycycline 100mg IV BID- orders carried out.
--- NOTE | 2018-10-12 23:00 | NUR ---
NURSE NOTES: PT. TRANSFERRED TO ICU.
--- NOTE | 2018-10-12 23:03 | NUR ---
NURSE NOTES: received from sdu, obtunded at this time, on 100% nrm, o2 sat 92%, cardiac mnoitor shows nsr with hr 95-100/min bp 93/43
[2018-10-12] MEDS ORDERED: D5NS 1,000 ML IV SCH (23:15)
--- NOTE | 2018-10-12 23:30 | NUR ---
NURSE NOTES: dr. vaca intubated patient wit ett 7,at 25 cm lip line on the right with vent settings ac 15, tv 450, fio2 100% peep 5
[2018-10-13] VITALS (29 sets, daily range): BP systolic 53–130; BP diastolic 26–62
--- NOTE | 2018-10-13 | NUR ---
HAND-OFF: Report given to Maggie HAMLIN, pt. remains stable and no signs and symptoms of acute distress noted.
--- NOTE | 2018-10-13 00:01 | NUR ---
NURSE NOTES: Report received from BOUBACAR Lowery. Pt opens eyes to name, non-verbal. animal care worker show SR. Pt intubated at approximately 2300. ETT 7 @ 23 cm, Ventilator settings: AC15, VT450, PEEP 5, FiO2: 100%. Pt tolerating ventilator settings well. Shows no signs of cardiac or respiratory distress. Pt has a GT in place with glucerna 1.5 running at 35 ml/hr. Roberts catheter present for retention, patent and draining well. No skin issues noted aside from healed saccral wound. Pt has a LH 22 gauge and a LAC 20 gauge, both patent and asymptomatic. ABG to be done and CXR ordered to assure proper placement of tube. Beverley to call family and advise of transfer. Will continue to monitor and with patients plan of care.
--- NOTE | 2018-10-13 00:15 | NUR ---
NURSE NOTES: called pt.s next of Kin Emily- regarding pt. transferred to ICU and pt. intubated, per Emily she does not want pt. to be trached or to be headed in that situation- and would like ICU nurse to call her in a couple hours to get pts status- will notify ICU nurse Maggie.
[2018-10-13] MEDS: NovoLOG Insulin Flexpen SUBQ SCH ×4 (00:42→18:17)
--- NOTE | 2018-10-13 00:44 | Pulmonolgy Critical Care Note ---
Critical Care - Asmt/Plan Assessment/Plan: Pulmonary Critical Care Consultation 10/12/2018 Chief Complaint: Altered Level of Consciousness HPI This is a 78-year-old female with multiple medical problems including hypertension and diabetes and COPD. She presents with altered mental status and fever. Per EMS, this practitioner visit patient at the [facility] living and noticed that she has respiratory distress, hypoxia and altered mental status. This has been ongoing for about a week. Worse today. Unable to get any other history from patient. Her oxygenation was low per EMS. They put her on oxygen and brought her here. She was noted to have a fever also. Noted to have a cough and labored rhonchorous breathing. Noted to have Pneumonia and Severe Hypercapneic Respiratory Respiratory Failure Allergies: No Known Allergies Past Medical History: DM, HTN, COPD, Parkinsons Disease, Seizures, Breast Cancer Review of Systems: Constitutional: Reports: fever, malaise, weakness Eye: Denies: eye pain, blurred vision ENT: Denies: ear pain, nose congestion, throat swelling Respiratory: Reports: cough, shortness of breath Cardiovascular: Denies: chest pain, palpitations Gastrointestinal: Denies: abdominal pain, diarrhea, nausea, vomiting Musculoskeletal: Denies: back pain, joint pain Skin: Denies: rash Neurological: Denies: headache, numbness Endocrine: Denies: increased thirst, increased urine Hematologic/Lymphatic: Denies: easy bruising All Other Systems: negative except mentioned in HPI Physical Exam Vital Signs Noted Date Time Temp Pulse Resp B/P (MAP) Pulse Ox O2 Delivery O2 Flow Rate FiO2 10/11/18 19:03 116 22 123/60 98 Nasal Cannula General Appearance: moderate distress, cachetic, lethargic, Chronically Ill, Stupor Head: normocephalic, atraumatic Eyes: bilateral eye PERRL, bilateral eye EOMI ENT: hearing grossly normal, dry mucus membranes Neck: full range of motion, supple, no meningismus Respiratory: chest non-tender, respiratory distress, decreased breath sounds, accessory muscle use, rhonchi noted Cardiovascular #1: no murmur, tachycardia Gastrointestinal: normal bowel sounds, non tender, no mass, no organomegaly, no bruit, non-distended, other - Gtube Musculoskeletal: back normal, normal range of motion Neurologic: grossly normal Skin: warm/dry Impression: Health Care Associated Pneumonia, Aspiration Related Sepsis Toxic metabolic encephalopathy Acute and chronic respiratory failure Proteinuria JEFFY (acute kidney injury) Plan Intubation AC 20, Vt 400 P5 FIO2 sats 90-96% Broad spectrum Antibiotics IVF PPX: SQH HHN EKG Diagnostic Results Rate: tachycardiac Rhythm: NSR ST Segments: other - NSST changes Rhythm Strip Diag. Results Rhythm Strip Time: 19:17 EP Interpretation: yes Rate: 100 Rhythm: NSR, no PVC's, no ectopy Chest X-Ray Diagnostic Results Chest X-Ray Diagnostic Results : Chest X-Ray Ordered: Yes # of Views/Limited/Complete: 1 View Indication: Shortness of Breath EP Interpretation: Yes Interpretation: no effusion, no pneumothorax, other - RLL infiltrate Impression: Other - RLL infiltrate Critical Care - Objective Last 24 Hour Vital Signs Date Time Temp Pulse Resp B/P (MAP) Pulse Ox O2 Delivery O2 Flow Rate FiO2 10/12/18 23:10 98 17 100 10/12/18 20:00 98.1 96 38 106/48 (67) 91 96 10/12/18 20:00 Nasal Cannula 5.0 Nasal Cannula 5.0 10/12/18 20:00 99 10/12/18 16:00 97.7 96 26 95/43 (60) 92 96 10/12/18 16:00 Nasal Cannula 5.0 Nasal Cannula 5.0 10/12/18 15:33 90 10/12/18 12:00 Nasal Cannula 5.0 Nasal Cannula 5.0 10/12/18 12:00 97.5 86 26 96/46 (63) 92 86 10/12/18 11:33 88 10/12/18 10:37 97/46 (63) 10/12/18 08:17 96 10/12/18 08:00 Nasal Cannula 5.0 Nasal Cannula 5.0 10/12/18 08:00 97.9 88 28 77/52 (60) 92 10/12/18 04:00 92 10/12/18 04:00 Nasal Cannula 5.0 Nasal Cannula 5.0 10/12/18 04:00 97.6 100 26 118/68 (85) 93 10/12/18 02:50 85 10/12/18 01:28 99.8 116 24 104/78 94 Nasal Cannula 5.0 10/12/18 01:00 Nasal Cannula 5.0 Nasal Cannula 5.0 10/12/18 01:00 Nasal Cannula 5.0 Nasal Cannula 5.0 10/12/18 01:00 97.6 101 24 123/67 (85) 93 Micro: Microbiology Date/Time Source Procedure Growth Status 10/11/18 19:23 Nasal Nares Influenza Types A,B Antigen (MAMIE) - Final Complete Accucheck: 160 Critical Care - Subjective ROS Limited/Unobtainable: Yes Condition: critical IV Access: peripheral EKG Rhythm: Sinus Rhythm FI02: 100 Vent Support Breath Rate: 15 Vent Support Mode: AC Vent Tidal Volume: 450 Sputum Amount: Moderate PEEP: 5.0 PIP: 29 Tube Feeding Amount: 35 I&O: Intake and Output 10/12/18 10/13/18 19:00 07:00 Intake Total 825 ml 625 ml Output Total 450 ml Balance 375 ml 625 ml Intake Free Water 300 ml IV Total 250 ml 450 ml Tube Feeding 275 ml 175 ml Output Urine Total 450 ml # Bowel Movements 1 Kang Lynch MD Oct 13, 2018 00:44
--- NOTE | 2018-10-13 01:23 | NUR ---
NURSE NOTES: Spoke with Dr. Lynch, advised him of improved ABG results after intubated. Vent settings to remain as: AC 18, VT 450, FiO2: 100%, PEEP 5. Pt to have Fentanyl order PRN for rest. Advised him pt's BP is low, given order to bolus 500 ml NS, increase D5NS to 100 ml/hr. Also given permission to bolus 500 ml of NS x2 additional times if needed to increase BP. Pt to have ABG in AM and addition CXR. Will follow through with orders and continue to monitor pt.
--- NOTE | 2018-10-13 01:39 | Diagnostic Imaging Report ---
EXAM: XR Chest, 1 View CLINICAL HISTORY: ABN LABS TECHNIQUE: Frontal view of the chest. COMPARISON: 10/11/18 FINDINGS: Lungs: Lungs demonstrate worsening mid and lower lung alveolar infiltrates worse on the right which may suggest worsening pneumonia/pulmonary edema. Pleural space: Bilateral pleural effusions. No pneumothorax. Heart: Unremarkable. No cardiomegaly. Mediastinum: Unremarkable. Bones/joints: Unremarkable. Vasculature: Atherosclerosis of aorta. Tubes, lines and devices: ET tube in the right mainstem bronchus just below the level of the minerva. Recommend retraction by at least 3 cm. IMPRESSION: 1. ET tube in the right mainstem bronchus just below the level of the minerva. Recommend retraction by at least 3 cm. 2. Lungs demonstrate worsening mid and lower lung alveolar infiltrates worse on the right which may suggest worsening pneumonia/pulmonary edema. Critical [employer] 10/13/18 01:47 Call Doctor Regarding Above results, called SNOW REMOVAL/PLOWINGBOUBACAR Moss on 10/13 01:46 (-08:00)
--- NOTE | 2018-10-13 01:58 | NUR ---
NURSE NOTES: spoke with the radiologist from [facility] rad and said to pull back ett by 3 cm... rt prashant made aware
[2018-10-13] MEDS: D5NS 1,000 ML IV SCH ×3 (02:00→22:01)
--- NOTE | 2018-10-13 02:00 | NUR ---
NURSE NOTES: ETT was at 24 CM, RT moved tube to 21 cm @ lip. Will continue to monitor and recheck CXR in AM
--- NOTE | 2018-10-13 02:33 | NUR ---
NURSE NOTES: Spoke with Emily, niece of patient. Updated her on status. Advised her of improved ABG after intubation.
--- NOTE | 2018-10-13 02:51 | Emergency Room Report ---
History of Present Illness General Chief Complaint: Altered Level of Consciousness Source: Medical Record, EMS Present Illness HPI This patient was admitted for sepsis from healthcare associated pneumonia. She was on BiPAP in the ER but not in [facility]. I was called by nursing staff to evaluate the patient for intubation. Patient oxidation was decreasing and she has increasing respiratory distress. On arrival to the ICU, patient is lethargic with increasing work of breathing. She was on a nonrebreather and was still hypoxic. Proceeded to intubate the patient. Allergies: Coded Allergies: No Known Allergies (Verified , 08/14/06) Patient History Past Medical History: see triage record, old chart reviewed Past Surgical History: other Pertinent Family History: none Social History: Denies: smoking Now: No Immunizations: other Reviewed Nursing Documentation: PMH: Agreed; PSxH: Agreed Nursing Documentation-PMH Hx Cardiac Problems: Yes Hx Hypertension: Yes Hx Diabetes: Yes Hx Cancer: Yes - breast Hx Neurological Problems: Yes - Parkinsons Hx Cerebrovascular Accident: Yes Hx Parkinson's Disease: Yes Hx Seizures: Yes Review of Systems Respiratory: Reports: shortness of breath All Other Systems: limited - Secondary to condition Physical Exam Vital Signs Date Time Temp Pulse Resp B/P (MAP) Pulse Ox O2 Delivery O2 Flow Rate FiO2 10/11/18 19:03 116 22 123/60 98 Nasal Cannula 10/11/18 19:25 101.8 10/11/18 19:25 6.0 10/11/18 22:35 100 Sp02 EP Interpretation: abnormal General Appearance: severe distress, Stupor Eyes: bilateral eye PERRL ENT: dry mucus membranes Neck: other - Neck: She 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 Patient require my urgent intervention to attenuate the risks of metabolic collapse which may lead to cardiovascular collapse and . Critical care time is 35 minutes excluding any reportable procedure. Critical care time included evaluation, multiple reevaluation, looking at old charts, interpreting laboratory and diagnostic data, discussing case with patient and family and consultants, and charting. Intubation Intubation : Consent: Emergent Intubation Method: orotracheal Tube Size (cm): 7.0 Medications: Etomidate, Succinylcholine Breath Sounds after Intubation: equal Intubation Complications: no complications Post Intubation Xray: Yes Progress/Xray Impression: Rt mainstem intubation Attempts: One Patient Tolerated: Well Complications: None Progress Because of patient previous tracheostomy and contracture of her neck, I initially intubated the patient using a bougie and then I put a 7-0 endotracheal tube over it. Chest x-ray showed tube in right mainstem. It was pulled back 3 cm. Medical Decision Making Diagnostic Impression: Primary Impression: Sepsis Qualified Codes: A41.9 - Sepsis, unspecified organism Additional Impressions: Acute and chronic respiratory failure Toxic metabolic encephalopathy Healthcare-associated pneumonia Aspiration pneumonia Qualified Codes: J69.0 - Pneumonitis due to inhalation of food and vomit Proteinuria Qualified Codes: R80.9 - Proteinuria, unspecified JEFFY (acute kidney injury) ER Course patient with respiratory failure from sepsis. patient intubated. Chest X-Ray Diagnostic Results Chest X-Ray Diagnostic Results : Chest X-Ray Ordered: Yes # of Views/Limited/Complete: 1 View Indication: Shortness of Breath EP Interpretation: Yes Interpretation: no effusion, no pneumothorax, other - Endotracheal tube in right mainstem. b/l infiltrate Impression: Other - Rt mainstem intubation. B/l infiltrate Electronically Signed by: Anthony Del Valle MD Last Vital Signs Date Time Temp Pulse Resp B/P (MAP) Pulse Ox O2 Delivery O2 Flow Rate FiO2 10/13/18 01:07 85 15 100 10/12/18 23:45 98.3 102/38 (59) 100 10/12/18 20:00 Nasal Cannula 5.0 Nasal Cannula 5.0 Status: improved Disposition: ADMITTED INPATIENT Condition: Critical Referrals: NON PHYSICIAN (PCP) Anthony Del Valle MD Oct 13, 2018 02:51
[2018-10-13] MEDS ORDERED: D5NS 1,000 ML IV SCH ×2 (03:15→08:13)
--- NOTE | 2018-10-13 04:00 | NUR ---
NURSE NOTES: After bolus of NS pt SBP seems to be ranging between 85-90. Pt resting comfortably. Tolerating ventilator settings well. Repositioned. Bed at lowest position. Bed alarms placed.
[2018-10-13] MEDS: Piperacillin/Tazobactam 3.375 GM in NS 110 ML IVPB SCH ×3 (04:22→21:56)
[2018-10-13] MEDS ORDERED: Acetaminophen 650mg/20.3ml GT PRN (04:30)
[2018-10-13 04:58] LABS: BASOPHILS % (AUTO) 1.6 % (0.0-2.0); HEMATOCRIT 27.3 % (37.0-47.0); LYMPHOCYTES % (AUTO) 12.3 % (20.0-45.0); MEAN CORPUSCULAR VOLUME 92 FL (80-99); MONOCYTES % (AUTO) 8.2 % (1.0-10.0); NEUTROPHILS % (AUTO) 77.9 % (45.0-75.0); PLATELET COUNT 115 K/UL (150-450); RED BLOOD COUNT 2.96 M/UL (4.20-5.40); RED CELL DISTRIBUTION WIDTH 13.8 % (11.6-14.8); WHITE BLOOD COUNT 4.9 K/UL (4.8-10.8)
[2018-10-13 05:12] LABS: ANION GAP 9 mmol/L (5-15); BLOOD UREA NITROGEN 61 mg/dL (7-18); CALCIUM 8.2 MG/DL (8.5-10.1); CARBON DIOXIDE 23 MMOL/L (21-32); CHLORIDE 113 MMOL/L (98-107); CREATININE 1.2 MG/DL (0.55-1.30); POTASSIUM 3.8 MMOL/L (3.5-5.1); SODIUM 145 MMOL/L (136-145)
[2018-10-13] MEDS ORDERED: sitaGLIPtin 25mg tab GT SCH (06:30)
--- NOTE | 2018-10-13 06:35 | NUR ---
RESPIRATORY NOTE:Received pt on ETT 7.0 @ 21cm lips line with current vent setting: AC 18-450ml-80%FiO2- peep of 5, saturates 100%, titrated FiO2 down to 65%, still at 100%, BOUBACAR Aguilar notified, will continue to titrate pt throughout the shift. Pt endotracheal tube is patent and secured via anchor fast. Suctioned pt prn. No SOB or resp distress noted. Vent alarms are on and audible, Vent is plugged into red outlet, ambu bag is at bedside. Will continue to monitor pt progress.
[2018-10-13] MEDS ORDERED: NS 250 ML IVPB ONE (07:15)
--- NOTE | 2018-10-13 07:15 | NUR ---
NURSE NOTES: Spoke with Dr. Lynch. Pt BP decreasing once more. Ordered to bolus Pt with 250 ml of NS and Albumin 25% to be given. Told to contact Dr. Chen for central line placement and to place pt on levophed to keep MAP above 65.
--- NOTE | 2018-10-13 07:25 | NUR ---
NURSE NOTES: Advised RT to titrate FiO2 down so SpO2 is between 90-96%. Pt had recently been weaned from 100% to 65% @0645. Dr. Syed johns.
--- NOTE | 2018-10-13 07:54 | NUR ---
RESPIRATORY NOTE: ABGs drawn at 0740, result in the system and reported to BOUBACAR Cerrato. Titrated FiO2 down to 45%, saturates at 99%. Will continue to monitor pt closely.
[2018-10-13] MEDS ORDERED: Lidocaine 1% Plain 30 ml INJ PRN (08:00)
[2018-10-13] MEDS ORDERED: Heparin 2000 units/Ns 1000ml INJ PRN (08:00)
--- NOTE | 2018-10-13 08:00 | NUR ---
NURSE NOTES: Received call from blanca Diaz, was updated on aunts condition, attempt made to obtain consent while on phone, she would like to speak with primary
--- NOTE | 2018-10-13 08:25 | NUR ---
NURSE NOTES: GILBERTO spoke with blanca Diaz on phone, consent obtained for picc or central line.
--- NOTE | 2018-10-13 08:40 | NUR ---
NURSE NOTES: Radiology here to do CXR. pt temporally tachycardiac at HR 128 after XRay was taken then returned to baseline at 79.
[2018-10-13] MEDS ORDERED: Doxycycline Hyclate 100 MG in D5W 110 ML IV SCH (09:00)
[2018-10-13] MEDS ORDERED: Heparin 5000 units/ml inj SUBQ SCH ×2 (09:00→10:30)
--- NOTE | 2018-10-13 09:00 | History and Physical Report ---
CHIEF COMPLAINT: The patient is a 78-year-old [place]ese-speaking female, who presents with chief complaint of shortness of breath. HISTORY OF PRESENT ILLNESS: The patient is a resident of [facility]. According to staff at [facility], the patient began to have shortness of breath yesterday October 11, 2018. The patient had decreased oxygen saturations. The patient presented to [place] emergency room. The patient was found to have oxygen saturation in the 80s. The patient was admitted for pneumonia to rule out sepsis. The patient's great-niece, Emily was interviewed over the telephone for the patient's past medical history. REVIEW OF SYSTEMS: Unable to assess secondary to the patient's mental status. PAST MEDICAL HISTORY: Significant for: 1. Hypertension. 2. Diabetes type 2. 3. Cerebrovascular disease, status post cerebrovascular accident about 15 years ago. 4. Left hemiparesis. PAST SURGICAL HISTORY: Significant for: 1. Appendectomy. 2. PEG placement in 2004. 3. History of tracheostomy secondary to pneumothorax in 2014 with reversal. CURRENT MEDICATIONS: 1. Lantus insulin of an unknown dose at bedtime. 2. Melatonin 3 mg p.o. at bedtime. 3. Milk of magnesia 30 mL p.o. p.r.n. 4. MiraLax 17 g per G-tube daily. 5. sliding scale. 6. Ipratropium nebulizer q. 4h. p.r.n. 7. Januvia 100 mg per G-tube daily. 8. Multivitamin per G-tube daily. 9. Nystatin powder applied topically four times a day p.r.n. 10. Patanol one drop in both eyes twice daily. 11. Vitamin C 500 mg per G-tube daily. 12. Xopenex 0.63 mg inhaled q. 4h. p.r.n. 13. Zinc sulfate 220 mg per G-tube daily. 14. Aspirin 81 mg one tablet p.o. daily. 15. Compazine 10 mg per G-tube p.r.n. 16. Dulcolax 10 mg suppository p.r.n. 17. Fleet enema p.r.n. 18. Zinc oxide applied topically daily. 19. Temazepam 7.5 mg per G-tube at bedtime. 20. Acetaminophen 650 mg per G-tube q. 4h. p.r.n. 21. Edarbyclor and chlorthalidone 40/12.5 one tablet per G-tube daily. 22. Glucerna 1.5 35 mL per hour. ALLERGIES: No known drug allergies. SOCIAL HISTORY: The patient is a resident of [facility]. The patient denies tobacco or alcohol use. The patient lives with her great niece, Emily, as above. PHYSICAL EXAMINATION: VITAL SIGNS: Temperature 99.8, respirations 24, pulse 116, blood pressure 104/78, and pulse ox 92% to 94% on 5 liters nasal cannula. GENERAL: The patient is well-developed, well-nourished, lethargic white female, in no apparent distress. HEENT: Eyes, pupils equal and responsive to light and accommodation. Extraocular movements are intact. NECK: Supple without lymphadenopathy. CHEST: Crackles in bilateral bases. Otherwise, clear to auscultation without wheezes or rales. CARDIOVASCULAR: Tachycardic, regular rhythm. S1, S2 normal without murmurs, rubs, or gallops. ABDOMEN: Soft, nontender, nondistended. Positive bowel sounds. No evidence of hepatosplenomegaly. Currently, no rebound or guarding noted. EXTREMITIES: Negative for clubbing, cyanosis, or edema. NEUROLOGIC: Unable to assess. LABORATORY STUDIES: WBC 12.7, hemoglobin 12.4, hematocrit 37.3, and platelets 148,000. Sodium 132, potassium 4.9, chloride 94, CO2 27, BUN 77, creatinine 1.5, glucose 172. Troponin 0.0. Chest x-ray revealed bilateral lower lobe consolidation consistent with pneumonia. ASSESSMENT: This is a 78-year-old white female. 1. Pneumonia. 2. Probable sepsis. 3. Hypertension. 4. Diabetes type 2. 5. Cerebrovascular disease. 6. Left hemiparesis. 7. Dysphagia. TREATMENT: 1. Pneumonia/sepsis. An Infectious Disease consultation has been obtained with Dr. Valentine. The patient has been started empirically on Zosyn, Flagyl, and vancomycin. We will follow recommendation of Infectious Disease. Sputum cultures, blood cultures, and chest x-ray are pending. 2. Hypertension. Continue chlorthalidone as above. 3. Diabetes type 2. Continue NovoLog sliding scale as above. 4. Cerebrovascular disease. 5. Left hemiparesis. 6. Dysphagia. The patient is status post PEG placement. Dimitrios Daly M.D. DR: VANESSA JOB#: [id number] CC:
--- NOTE | 2018-10-13 09:00 | NUR ---
NURSE NOTES: Placed call to radiology to see when available to place PICC for vasopressors. will try to do this AM.
--- NOTE | 2018-10-13 09:14 | NUR ---
NURSE NOTES: Tech here to do venous duplex, caregiver at bedside. Informed to wait in waiting.
[2018-10-13] MEDS ORDERED: JANUVIA100 MG ORAL (09:32)
[2018-10-13] MEDS: Doxycycline Hyclate 100 MG in D5W 110 ML IV SCH ×2 (10:15→20:49)
[2018-10-13] MEDS: Aspirin Baby 81mg GT SCH (10:15)
--- NOTE | 2018-10-13 10:43 | NUR ---
Social Work This Sw met with patient, who is currently intubated in the ICU. Patients caregiver, Devorah Oviedo currently at bedside and contacted patients decision maker, Emily ([email or web address]), who is currently in [facility] ([phone]). Blanca explained she is planning to return to [place] within one week, but can be reached 24 hours per day. Nursing aware. Patient was at short term placement (at [facility]). Blanca is requesting for patient to discharge to home with her 24 hour caregiver. Patient has [facility] ([phone]) to follow. Patient is non-ambulatory/bedbound, requires 24 hour assistance/care, has a hospital bed; will need ambulance to transport upon discharge. Patient was alert/oriented x4, according to family (speaks only [place]). Blanca is requesting full code, full treatment at this time. Pending progress. Brief support provided to family, who are expressing no further needs or concerns at this time (blanca has been in communication with ICU staff through [employer] regularly).
--- NOTE | 2018-10-13 10:59 | NUR ---
CASE MANAGEMENT: REVIEW 78/F BIBA FROM [facility] CC: ALOC . SOB SI: SEPSIS . PNA T 101.8 HR 108 RR 24 BP 100/53 SAT 100% NON-REBREATHER WBC 12.0 NA 132 BUN 77 CR 1.5 IS: NS IVF BOLUS X1 TYLENOL RECTAL X1 FLAGYL IV X1 ZOSYN IV X1 NOVOLOG SQ AC/HS INTERQUAL CRITERIA MET: PATIENT ADMITTED TO ICU 10/11/2018 DCP: PATIENT IS FROM [facility] CASE MANAGEMENT: REVIEW SI: SEPSIS . PNA T 99.8 HR 116 RR 28 BP 77/52 SAT 92% 5L/NC ABG: PH 7.003 PCO2 118.4 PO2 85.1 HCO3 28.7 O2 SAT 94.1 IS: PROTONIX IV QD HEPARIN SQ Q12HR VANCO IV Q24HR DOXYCYCLINE IV Q12HR ASA GT QD LEVOPHED IV Q24HR ICU STATUS DCP: PATIENT IS FROM [facility] CASE MANAGEMENT: REVIEW SI: SEPSIS . PNA T 99.8 HR 65 RR 12 BP 90/38 SAT 100% FIO2 35 ABG: PH 7.293 PCO2 49.3 PO2 117.3 HCO3 23.3 IS: PROTONIX IV QD HEPARIN SQ Q12HR VANCO IV Q24HR DOXYCYCLINE IV Q12HR ASA GT QD LEVOPHED IV Q24HR ICU STATUS DCP: PATIENT IS FROM [facility]
--- NOTE | 2018-10-13 11:12 | Pulmonolgy Critical Care Note ---
Critical Care - Asmt/Plan Problems: (1) Acute respiratory failure (2) Healthcare-associated pneumonia (3) Sepsis (4) Diabetes mellitus type II, uncontrolled (5) Feeding by G-tube (6) Hemiparesis affecting left side as late effect of cerebrovascular accident Respiratory: monitor respiratory rate, adjust FIO2, CXR Cardiac: continue to monitor HR/BP Renal: F/U I&O, keep IV fluid, check electrolytes Infectious Disease: check cultures Gastrointestinal: continue feedings/current rate Endocrine: monitor blood sugar, continue sliding scale insulin Hematologic: monitor H/H, transfuse if hgb<8.5 Neurologic: PRN Ativan, keep patient comfortable Prophylaxis: Protonix Disposition: keep in ICU Time Spent (Minutes): 40 Notes Reviewed: seasoner hand, renal Discussed with: nurses, consultants, foster care case managerpractice performance manager - Objective Last 24 Hour Vital Signs Date Time Temp Pulse Resp B/P (MAP) Pulse Ox O2 Delivery O2 Flow Rate FiO2 10/13/18 08:57 77 18 35 10/13/18 07:54 65 18 45 10/13/18 06:35 73 18 65 10/13/18 06:00 99.8 77 12 90/38 (55) 100 10/13/18 05:17 74 18 80 10/13/18 05:00 75 14 89/37 (54) 100 10/13/18 04:00 75 10/13/18 04:00 98.9 75 12 86/37 (53) 100 10/13/18 04:00 Mechanical Ventilator Mechanical Ventilator 10/13/18 03:15 75 18 90 10/13/18 03:00 75 18 87/42 (57) 100 10/13/18 02:00 100 10/13/18 02:00 78 18 95/50 (65) 100 10/13/18 01:07 85 15 100 10/13/18 01:00 80 16 53/26 (35) 100 10/13/18 00:00 Mechanical Ventilator Mechanical Ventilator 10/13/18 00:00 100 10/12/18 23:45 98.3 95 15 102/38 (59) 100 10/12/18 23:30 95 10/12/18 23:30 100 10/12/18 23:10 98 17 100 10/12/18 23:00 99 28 93/43 (60) 92 10/12/18 20:00 98.1 96 38 106/48 (67) 91 96 10/12/18 20:00 Nasal Cannula 5.0 Nasal Cannula 5.0 10/12/18 20:00 99 10/12/18 16:00 97.7 96 26 95/43 (60) 92 96 10/12/18 16:00 Nasal Cannula 5.0 Nasal Cannula 5.0 10/12/18 15:33 90 10/12/18 12:00 Nasal Cannula 5.0 Nasal Cannula 5.0 10/12/18 12:00 97.5 86 26 96/46 (63) 92 86 10/12/18 11:33 88 Status: sedated Condition: critical HEENT: atraumatic Lungs: clear, chest wall tender Heart: HR/BP stable, regular Abdomen: active bowel sounds Extremities: no C/C/E, edema Decubiti: location Micro: Microbiology Date/Time Source Procedure Growth Status 10/11/18 19:23 Blood Blood Culture - Preliminary NO GROWTH AFTER 24 HOURS Resulted 10/11/18 19:20 Blood Blood Culture - Preliminary NO GROWTH AFTER 24 HOURS Resulted 10/11/18 19:23 Nasal Nares Influenza Types A,B Antigen (MAMIE) - Final Complete Accucheck: 110 Critical Care - Subjective ROS Limited/Unobtainable: Yes Condition: critical EKG Rhythm: Sinus Rhythm FI02: 35 Vent Support Breath Rate: 18 Vent Support Mode: AC Vent Tidal Volume: 450 Sputum Amount: Small PEEP: 5.0 PIP: 27 Tube Feeding Amount: 35 I&O: Intake and Output 10/12/18 10/13/18 19:00 07:00 Intake Total 825 ml 905 ml Output Total 450 ml 197 ml Balance 375 ml 708 ml Intake Free Water 300 ml IV Total 250 ml 660 ml Tube Feeding 275 ml 245 ml Output Urine Total 450 ml 197 ml # Voids 1 # Bowel Movements 1 CXR: ET at minerva, was pulled back ET-Tube: 7.0 ET Position: 21 Labs: Laboratory Tests Test 10/12/18 22:22 10/13/18 00:08 10/13/18 03:40 10/13/18 07:40 Arterial Blood pH 7.003 (7.350-7.450) 7.293 (7.350-7.450) 7.457 (7.350-7.450) Arterial Blood Partial Pressure CO2 118.4 mmHg (35.0-45.0) *H 49.3 mmHg (35.0-45.0) H 30.5 mmHg (35.0-45.0) L Arterial Blood Partial Pressure O2 85.1 mmHg (75.0-100.0) 117.3 mmHg (75.0-100.0) H 134.1 mmHg (75.0-100.0) H Arterial Blood HCO3 28.7 mmol/L (22.0-26.0) H 23.3 mmol/L (22.0-26.0) 21.1 mmol/L (22.0-26.0) L Arterial Blood Oxygen Saturation 94.1 % (95-100) L 98.0 % (95-100) 98.4 % (95-100) Arterial Blood Base Excess -5.1 (-2-2) L -3.4 (-2-2) L -2.2 (-2-2) L Khadar Test Positive Positive Positive White Blood Count 4.9 K/UL (4.8-10.8) Red Blood Count 2.96 M/UL (4.20-5.40) L Hemoglobin 9.0 G/DL (12.0-16.0) L Hematocrit 27.3 % (37.0-47.0) L Mean Corpuscular Volume 92 FL (80-99) Mean Corpuscular Hemoglobin 30.4 PG (27.0-31.0) Mean Corpuscular Hemoglobin Concent 32.9 G/DL (32.0-36.0) Red Cell Distribution Width 13.8 % (11.6-14.8) Platelet Count 115 K/UL (150-450) L Mean Platelet Volume 6.8 FL (6.5-10.1) Neutrophils (%) (Auto) 77.9 % (45.0-75.0) H Lymphocytes (%) (Auto) 12.3 % (20.0-45.0) L Monocytes (%) (Auto) 8.2 % (1.0-10.0) Eosinophils (%) (Auto) 0.0 % (0.0-3.0) Basophils (%) (Auto) 1.6 % (0.0-2.0) Sodium Level 145 MMOL/L (136-145) Potassium Level 3.8 MMOL/L (3.5-5.1) Chloride Level 113 MMOL/L (98-107) H Carbon Dioxide Level 23 MMOL/L (21-32) Anion Gap 9 mmol/L (5-15) Blood Urea Nitrogen 61 mg/dL (7-18) H Creatinine 1.2 MG/DL (0.55-1.30) Estimat Glomerular Filtration Rate mL/min (>60) Glucose Level 123 MG/DL (74-106) H Calcium Level 8.2 MG/DL (8.5-10.1) L Barbara Sky MD Oct 13, 2018 11:12
--- NOTE | 2018-10-13 11:52 | NUR ---
NURSE NOTES: Called radiologist for update for PICC placement, likely done in afternoon. Was updated on pt BP ranging in low 80's.
--- NOTE | 2018-10-13 12:13 | Internal Med Progress Note ---
Subjective Date of Service: Oct 13, 2018 Physician Name Dimitrios Daly Attending Physician Tereso Toro MD Current Medications Medications (Trade) Dose Ordered Sig/Christopher Route PRN Reason Start Time Stop Time Status Last Admin Dose Admin Acetaminophen (Tylenol) 650 mg Q4H PRN GT Mild Pain/Temp > 101 10/13/18 04:30 11/11/18 04:29 Aspirin (ASA) 81 mg DAILY GT 10/13/18 09:00 11/11/18 08:59 10/13/18 10:15 Chlorhexidine Gluconate (Tatiana-Hex 2%) 1 applic DAILY@2000 TOPIC 10/13/18 20:00 11/12/18 19:59 Dextrose (Dextrose 50%) 25 ml Q30M PRN IV Hypoglycemia 10/13/18 03:30 11/11/18 04:29 Dextrose (Dextrose 50%) 50 ml Q30M PRN IV Hypoglycemia 10/13/18 03:30 11/11/18 04:29 Dextrose/Sodium Chloride 1,000 ml @ 100 mls/hr Q10H IV 10/13/18 02:00 11/12/18 01:59 10/13/18 02:00 Doxycycline Hyclate 100 mg/ Dextrose 110 ml @ 100 mls/hr Q12HR IV 10/13/18 09:00 10/20/18 08:59 10/13/18 10:15 Heparin Sodium (Porcine) (Heparin 5000 units/ml) 5,000 units EVERY 12 HOURS SUBQ 10/13/18 21:00 11/12/18 20:59 Heparin Sodium/ Sodium Chloride (Heparin 2000 units/Ns 1000ml premix) 2,000 unit ONCE PRN INJ PICC 10/13/18 08:00 10/13/18 23:59 Insulin Aspart (NovoLOG) EVERY 6 HOURS SUBQ 10/13/18 06:00 11/11/18 06:29 Lidocaine HCl (Xylocaine 1% 30ml) 30 ml ONCE PRN INJ PICC 10/13/18 08:00 10/13/18 23:59 Metronidazole 100 ml @ 100 mls/hr Q8HR IVPB 10/13/18 06:00 10/19/18 05:59 10/13/18 05:52 Norepinephrine Bitartrate 4 mg/ Dextrose 250 ml @ 0 mls/hr Q24H IV 10/13/18 09:00 11/12/18 08:59 Pantoprazole (Protonix) 40 mg DAILY IVP 10/14/18 09:00 11/13/18 08:59 Piperacillin Sod/ Tazobactam Sod 3.375 gm/Sodium Chloride 110 ml @ 220 mls/hr Q8H IVPB 10/13/18 05:00 10/19/18 04:59 10/13/18 04:22 Sitagliptin Phosphate (Januvia) 100 mg ACBREAKFAST GT 10/13/18 06:30 11/11/18 06:29 Vancomycin HCl (Vanco rx to dose) 1 ea DAILY PRN MISC Per rx protocol 10/13/18 09:00 11/11/18 12:14 Vancomycin/Sodium Chloride 250 ml @ 166.667 mls/hr Q24H IVPB 10/13/18 14:00 10/17/18 13:59 Allergies: Coded Allergies: No Known Allergies (Verified , 08/14/06) ROS Limited/Unobtainable: Yes Subjective 78 YO F admitted with pneumonia. S/P intubation overnight; intubated; transfered to ICU. Cover for Int Los-Dr Toro Objective Last Vital Signs Date Time Temp Pulse Resp B/P (MAP) Pulse Ox O2 Delivery O2 Flow Rate FiO2 10/13/18 11:03 67 19 35 10/13/18 06:00 99.8 90/38 (55) 100 10/13/18 04:00 Mechanical Ventilator Mechanical Ventilator 10/12/18 20:00 5.0 5.0 General Appearance: WD/WN, moderate distress, lethargic EENT: PERRL/EOMI, normal ENT inspection Neck: non-tender, normal alignment, supple Cardiovascular: normal peripheral pulses, normal rate, regular rhythm, no gallop/murmur, no JVD Respiratory/Chest: respiratory distress, crackles/rales, rhonchi - bilaterally , expiratory wheezing Abdomen: normal bowel sounds, non tender, soft, no organomegaly, no mass 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 normal Skin: normal pigmentation, warm/dry Laboratory Tests Test 10/12/18 22:22 10/13/18 00:08 10/13/18 03:40 10/13/18 07:40 Arterial Blood pH 7.003 (7.350-7.450) 7.293 (7.350-7.450) 7.457 (7.350-7.450) Arterial Blood Partial Pressure CO2 118.4 mmHg (35.0-45.0) *H 49.3 mmHg (35.0-45.0) H 30.5 mmHg (35.0-45.0) L Arterial Blood Partial Pressure O2 85.1 mmHg (75.0-100.0) 117.3 mmHg (75.0-100.0) H 134.1 mmHg (75.0-100.0) H Arterial Blood HCO3 28.7 mmol/L (22.0-26.0) H 23.3 mmol/L (22.0-26.0) 21.1 mmol/L (22.0-26.0) L Arterial Blood Oxygen Saturation 94.1 % (95-100) L 98.0 % (95-100) 98.4 % (95-100) Arterial Blood Base Excess -5.1 (-2-2) L -3.4 (-2-2) L -2.2 (-2-2) L Khadar Test Positive Positive Positive White Blood Count 4.9 K/UL (4.8-10.8) Red Blood Count 2.96 M/UL (4.20-5.40) L Hemoglobin 9.0 G/DL (12.0-16.0) L Hematocrit 27.3 % (37.0-47.0) L Mean Corpuscular Volume 92 FL (80-99) Mean Corpuscular Hemoglobin 30.4 PG (27.0-31.0) Mean Corpuscular Hemoglobin Concent 32.9 G/DL (32.0-36.0) Red Cell Distribution Width 13.8 % (11.6-14.8) Platelet Count 115 K/UL (150-450) L Mean Platelet Volume 6.8 FL (6.5-10.1) Neutrophils (%) (Auto) 77.9 % (45.0-75.0) H Lymphocytes (%) (Auto) 12.3 % (20.0-45.0) L Monocytes (%) (Auto) 8.2 % (1.0-10.0) Eosinophils (%) (Auto) 0.0 % (0.0-3.0) Basophils (%) (Auto) 1.6 % (0.0-2.0) Sodium Level 145 MMOL/L (136-145) Potassium Level 3.8 MMOL/L (3.5-5.1) Chloride Level 113 MMOL/L (98-107) H Carbon Dioxide Level 23 MMOL/L (21-32) Anion Gap 9 mmol/L (5-15) Blood Urea Nitrogen 61 mg/dL (7-18) H Creatinine 1.2 MG/DL (0.55-1.30) Estimat Glomerular Filtration Rate mL/min (>60) Glucose Level 123 MG/DL (74-106) H Calcium Level 8.2 MG/DL (8.5-10.1) L Microbiology Date/Time Source Procedure Growth Status 10/11/18 19:23 Blood Blood Culture - Preliminary NO GROWTH AFTER 24 HOURS Resulted 10/11/18 19:20 Blood Blood Culture - Preliminary NO GROWTH AFTER 24 HOURS Resulted 10/11/18 19:23 Nasal Nares Influenza Types A,B Antigen (MAMIE) - Final Complete Intake and Output 10/12/18 10/13/18 18:59 06:59 Intake Total 645 ml 1085 ml Output Total 620 ml Balance 645 ml 465 ml Intake Free Water 200 ml 100 ml IV Total 200 ml 710 ml Tube Feeding 245 ml 275 ml Output Urine Total 620 ml # Voids 1 # Bowel Movements 1 Assessment/Plan Problem List: (1) COPD (chronic obstructive pulmonary disease) (2) Cerebral vascular disease (3) Acute respiratory failure Assessment & Plan: Mech Vent per pulmonary (4) Sepsis (5) Diabetes mellitus type II, uncontrolled (6) HTN (hypertension) (7) Hemiparesis affecting left side as late effect of cerebrovascular accident (8) Healthcare-associated pneumonia Assessment & Plan: Continue vanco and doxycycline per ID (9) Hypotension Assessment & Plan: due to sepsis; start levophed (10) Sepsis Status: deteriorating Dimitrios Daly MD Oct 13, 2018 12:13
--- NOTE | 2018-10-13 13:18 | Diagnostic Imaging Report ---
Indication: Dyspnea Comparison: 01:04 A single view chest radiograph was obtained. Findings: Endotracheal tube is just above the minerva and has been pulled back slightly. Groundglass and interstitial opacities again noted bilaterally may be reflective of pulmonary edema or infiltrates. Correlate clinically. IMPRESSION: Endotracheal tube just above the minerva
[2018-10-13] MEDS ORDERED: Vancomycin 750mg/NS 250ml 250 ML IVPB SCH (14:00)
--- NOTE | 2018-10-13 14:14 | Diagnostic Imaging Report ---
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 The right upper extremity was prepped with alcohol. All elements of maximal sterile barrier technique were followed including usage of a cap, mask, sterile gown, sterile gloves, hand hygiene and a large sterile sheet. Sonographic evaluation of the upper extremity was performed demonstrating a patent and compressible basilic vein. Access was obtained under real-time ultrasound guidance (with utilization of sterile gel and sterile probe cover) and digital image was saved and archived. An .018 wire was introduced. Needle exchanged for a 5 Afghan peel-away sheath. Measurements were obtained. A 5 Afghan dual-lumen Power PICC line catheter was cut to 35 cm and introduced over the wire. Peel-away sheath and wire were removed.Catheter was secured to the skin using 2-0 Prolene suture. Both ports aspirate and flush easily. Post procedure chest x-ray demonstrates good position of the PICC line catheter within the SVC. Impression: Successful placement of an upper extremity PICC line catheter
--- NOTE | 2018-10-13 14:15 | NUR ---
NURSE NOTES: MD Valentine here to see pt, received order for sputum culture.
--- NOTE | 2018-10-13 14:33 | NUR ---
RD ASSESSMENT & RECOMMENDATIONS SEE CARE ACTIVITY FOR COMPLETE ASSESSMENT DAILY ESTIMATED NEEDS: Needs based on DM, critical care, suspected wound, sepsis 51.8kg 22-30 kcals/kg 1709-1865 total kcals 1.25-2 g protein/kg 65-104 g total protein 25-30 mL/kg 8179-7600 total fluid mLs NUTRITION DIAGNOSIS: 1) Swallowing difficulty R/T dysphagia as evidenced by pt on GT feeding 2) Increased kcal/pro/micronutrients needs R/T wound healing as evidenced by pt admitted w/sacral wound, pending eval. CURRENT TF: Glucerna 1.5 @ 35ml/hr x 24 hrs ENTERAL NUTRITION RECOMMENDATIONS: Glucerna 1.5 @ 40ml/hr x 24 hrs to provide 960ml, 1440kcal, 79g pro, 729ml free water -Rec INCREASE Glucerna 1.5 to goal of 40ml/hr to better meet est needs -HOB over 30 degrees, flush per MD ADDITIONAL RECOMMENDATIONS: * Add JO-ANN BID for skin integrity/ f/up w/ WC eval * RE-calibrate bed scale for accurate CBW * Lytes daily, replete as needed * FEED TO GOAL W/ HEMODYNAMIC STABILITY ONLY -> W/ high dose pressors, rec trophic feeds of 5-10ml/hr
[2018-10-13] MEDS ORDERED: NS 275ml ONE ×2 (14:44→16:34)
[2018-10-13] MEDS ORDERED: Tubing IV Secondary IV ONE (14:44)
--- NOTE | 2018-10-13 17:07 | Infectious Diseases Prog Note ---
Assessment/Plan Problems: (1) Aspiration pneumonia Assessment & Plan: continue vancomycin and zosyn empirically pending blood cultures and sputum culture , aspiration precaution , keep HOB > 30 degree .monitor CXR (2) Sepsis Assessment & Plan: due to the above , continue wide spectrum antibiotics pending cultures (3) Acute respiratory failure Assessment & Plan: due to the above , intubated on mechanical ventilation , monitor CXR and ABG (4) Hypotension Assessment & Plan: suspect due to sepsis , continue antibiotics and hydration (5) Diabetes mellitus type II, uncontrolled Assessment & Plan: recommend tight glycemic control to keep blood glucose between 100-140 (6) JEFFY (acute kidney injury) Assessment & Plan: due to hypotension and sepsis, continue hydration, monitor renal function, and UOP Subjective ROS Limited/Unobtainable: Yes Allergies: Coded Allergies: No Known Allergies (Verified , 08/14/06) Subjective she was intubated and started on mechanical ventilation , and transferred to ICU , for close monitoring , afebrile. Objective Vital Signs Last 24 Hour Vital Signs Date Time Temp Pulse Resp B/P (MAP) Pulse Ox O2 Delivery O2 Flow Rate FiO2 10/13/18 15:10 67 18 35 10/13/18 14:21 80/35 10/13/18 13:16 71 18 35 10/13/18 12:00 Mechanical Ventilator Mechanical Ventilator 10/13/18 12:00 73 10/13/18 11:03 67 19 35 10/13/18 08:57 77 18 35 10/13/18 08:00 63 10/13/18 08:00 Mechanical Ventilator Mechanical Ventilator 10/13/18 07:54 65 18 45 10/13/18 06:35 73 18 65 10/13/18 06:00 99.8 77 12 90/38 (55) 100 10/13/18 05:17 74 18 80 10/13/18 05:00 75 14 89/37 (54) 100 10/13/18 04:00 75 10/13/18 04:00 98.9 75 12 86/37 (53) 100 10/13/18 04:00 Mechanical Ventilator Mechanical Ventilator 10/13/18 03:15 75 18 90 10/13/18 03:00 75 18 87/42 (57) 100 10/13/18 02:00 100 10/13/18 02:00 78 18 95/50 (65) 100 10/13/18 01:07 85 15 100 10/13/18 01:00 80 16 53/26 (35) 100 10/13/18 00:00 Mechanical Ventilator Mechanical Ventilator 10/13/18 00:00 100 10/12/18 23:45 98.3 95 15 102/38 (59) 100 10/12/18 23:30 95 10/12/18 23:30 100 10/12/18 23:10 98 17 100 10/12/18 23:00 99 28 93/43 (60) 92 10/12/18 20:00 98.1 96 38 106/48 (67) 91 96 10/12/18 20:00 Nasal Cannula 5.0 Nasal Cannula 5.0 10/12/18 20:00 99 Height (Feet): 5 Height (Inches): 4.00 Weight (Pounds): 114 General Appearance: WD/WN, no acute distress, cachetic HEENT: normocephalic, atraumatic, anicteric, supple, no JVD Respiratory/Chest: chest wall non-tender, no respiratory distress, no accessory muscle use, decreased breath sounds, crackles/rales Cardiovascular: normal peripheral pulses, normal rate, regular rhythm, no gallop/murmur, no JVD Abdomen: normal bowel sounds, soft, non tender, no organomegaly, non distended , no mass, no scars Extremities: no cyanosis, no clubbing Skin: no rash, no lesions, ulcers Neurologic/Psychiatric: unresponsiveness Lymphatic: no neck adenopathy, no groin adenopathy Musculoskeletal: normal muscle bulk, no effusion Microbiology Date/Time Source Procedure Growth Status 10/11/18 19:23 Blood Blood Culture - Preliminary NO GROWTH AFTER 24 HOURS Resulted 10/11/18 19:20 Blood Blood Culture - Preliminary NO GROWTH AFTER 24 HOURS Resulted 10/11/18 19:23 Nasal Nares Influenza Types A,B Antigen (MMAIE) - Final Complete Laboratory Tests Test 10/12/18 22:22 10/13/18 00:08 10/13/18 03:40 10/13/18 07:40 Arterial Blood pH 7.003 (7.350-7.450) 7.293 (7.350-7.450) 7.457 (7.350-7.450) Arterial Blood Partial Pressure CO2 118.4 mmHg (35.0-45.0) *H 49.3 mmHg (35.0-45.0) H 30.5 mmHg (35.0-45.0) L Arterial Blood Partial Pressure O2 85.1 mmHg (75.0-100.0) 117.3 mmHg (75.0-100.0) H 134.1 mmHg (75.0-100.0) H Arterial Blood HCO3 28.7 mmol/L (22.0-26.0) H 23.3 mmol/L (22.0-26.0) 21.1 mmol/L (22.0-26.0) L Arterial Blood Oxygen Saturation 94.1 % (95-100) L 98.0 % (95-100) 98.4 % (95-100) Arterial Blood Base Excess -5.1 (-2-2) L -3.4 (-2-2) L -2.2 (-2-2) L Khadar Test Positive Positive Positive White Blood Count 4.9 K/UL (4.8-10.8) Red Blood Count 2.96 M/UL (4.20-5.40) L Hemoglobin 9.0 G/DL (12.0-16.0) L Hematocrit 27.3 % (37.0-47.0) L Mean Corpuscular Volume 92 FL (80-99) Mean Corpuscular Hemoglobin 30.4 PG (27.0-31.0) Mean Corpuscular Hemoglobin Concent 32.9 G/DL (32.0-36.0) Red Cell Distribution Width 13.8 % (11.6-14.8) Platelet Count 115 K/UL (150-450) L Mean Platelet Volume 6.8 FL (6.5-10.1) Neutrophils (%) (Auto) 77.9 % (45.0-75.0) H Lymphocytes (%) (Auto) 12.3 % (20.0-45.0) L Monocytes (%) (Auto) 8.2 % (1.0-10.0) Eosinophils (%) (Auto) 0.0 % (0.0-3.0) Basophils (%) (Auto) 1.6 % (0.0-2.0) Sodium Level 145 MMOL/L (136-145) Potassium Level 3.8 MMOL/L (3.5-5.1) Chloride Level 113 MMOL/L (98-107) H Carbon Dioxide Level 23 MMOL/L (21-32) Anion Gap 9 mmol/L (5-15) Blood Urea Nitrogen 61 mg/dL (7-18) H Creatinine 1.2 MG/DL (0.55-1.30) Estimat Glomerular Filtration Rate mL/min (>60) Glucose Level 123 MG/DL (74-106) H Calcium Level 8.2 MG/DL (8.5-10.1) L Current Medications Medications (Trade) Dose Ordered Sig/Christopher Route PRN Reason Start Time Stop Time Status Last Admin Dose Admin Acetaminophen (Tylenol) 650 mg Q4H PRN GT Mild Pain/Temp > 101 10/13/18 04:30 11/11/18 04:29 Aspirin (ASA) 81 mg DAILY GT 10/13/18 09:00 11/11/18 08:59 10/13/18 10:15 Chlorhexidine Gluconate (Tatiana-Hex 2%) 1 applic DAILY@2000 TOPIC 10/13/18 20:00 11/12/18 19:59 Dextrose (Dextrose 50%) 25 ml Q30M PRN IV Hypoglycemia 10/13/18 03:30 11/11/18 04:29 Dextrose (Dextrose 50%) 50 ml Q30M PRN IV Hypoglycemia 10/13/18 03:30 11/11/18 04:29 Dextrose/Sodium Chloride 1,000 ml @ 100 mls/hr Q10H IV 10/13/18 02:00 11/12/18 01:59 10/13/18 12:19 Doxycycline Hyclate 100 mg/ Dextrose 110 ml @ 100 mls/hr Q12HR IV 10/13/18 09:00 10/20/18 08:59 10/13/18 10:15 Heparin Sodium (Porcine) (Heparin 5000 units/ml) 5,000 units EVERY 12 HOURS SUBQ 10/13/18 21:00 11/12/18 20:59 Heparin Sodium/ Sodium Chloride (Heparin 2000 units/Ns 1000ml premix) 2,000 unit ONCE PRN INJ PICC 10/13/18 08:00 10/13/18 23:59 Insulin Aspart (NovoLOG) EVERY 6 HOURS SUBQ 10/13/18 06:00 11/11/18 06:29 10/13/18 12:21 Lidocaine HCl (Xylocaine 1% 30ml) 30 ml ONCE PRN INJ PICC 10/13/18 08:00 10/13/18 23:59 Metronidazole 100 ml @ 100 mls/hr Q8HR IVPB 10/13/18 06:00 10/19/18 05:59 10/13/18 14:23 Norepinephrine Bitartrate 4 mg/ Dextrose 250 ml @ 0 mls/hr Q24H IV 10/13/18 09:00 11/12/18 08:59 10/13/18 14:21 Pantoprazole (Protonix) 40 mg DAILY IVP 10/14/18 09:00 11/13/18 08:59 Piperacillin Sod/ Tazobactam Sod 3.375 gm/Sodium Chloride 110 ml @ 220 mls/hr Q8H IVPB 10/13/18 05:00 10/19/18 04:59 10/13/18 14:56 Sitagliptin Phosphate (Januvia) 100 mg ACBREAKFAST GT 10/13/18 06:30 11/11/18 06:29 Vancomycin HCl (Vanco rx to dose) 1 ea DAILY PRN MISC Per rx protocol 10/13/18 09:00 11/11/18 12:14 Vancomycin/Sodium Chloride 250 ml @ 166.667 mls/hr Q24H IVPB 10/13/18 14:00 10/17/18 13:59 10/13/18 14:22 Porfirio Valentine M.D. Oct 13, 2018 17:07
--- NOTE | 2018-10-13 18:52 | NUR ---
NURSE NOTES: Called Dr Sky regarding patient's HR being >190s with hypotension. Per MD dc Levo, give Bolus of NS 1L and if not improved BP start Phenylephrine. Called MD for 2nd time for now BP that was reaching >200s. MD gave order for 0.5 mg Dig. Will continue to monitor patient very closely and follow MD plan of care closely.
[2018-10-13] MEDS ORDERED: Digoxin 0.5mg/2ml Inj IVP SCH (19:00)
--- NOTE | 2018-10-13 19:00 | NUR ---
NURSE NOTES: Contacted Dr Sky regarding HR that continues to go into >170s despite being given Dig. Waiting for MD response, will endorse to RN.
--- NOTE | 2018-10-13 19:25 | NUR ---
RESPIRATORY NOTE: Received patient on AC RR 18, Vt 450, FIO2 35%, PEEP +5. Patient found obtunded and responsive to suctioning. Thick bloody secretions suctions through ETT. Vent plugged in to red outlet and ambu bag at bedside. Patient is currently stable, and will continue to monitor.
[2018-10-13] MEDS: Phenylephrine 50 MG in D5W 245 ML IV SCH (19:30)
--- NOTE | 2018-10-13 19:30 | NUR ---
NURSE NOTES:received pt lethargic but opened eyes to painful stimuli, pt extremities were contracted with left hemiparesis. orally intubated on Ac mode, suctioned tk blood tinged secretions lg in amt, ST on the monitor with lots of artifacts, Bp stable at this time, temp 99.9F, cooling measures started. Pt with PICC line JOLEEN, with Glucerna at 35ml/hr tolerated HOB kept elevated. On aspiration Precautions. Will continue to monitor.
[2018-10-13] MEDS: Dyna-Hex 2% Top Sol 2oz TOPIC SCH (20:23)
--- NOTE | 2018-10-13 20:30 | Cardiology Progress Note ---
Assessment/Plan Assessment/Plan [id number] artifact suspected on one of the tele lead repeat ekg lead monitorin reposition echo will follow thank you Objective Last 24 Hour Vital Signs Date Time Temp Pulse Resp B/P (MAP) Pulse Ox O2 Delivery O2 Flow Rate FiO2 10/13/18 20:00 35 10/13/18 19:51 Endotracheal Tube Mechanical Ventilator 10/13/18 19:30 85 26 109/41 (63) 98 10/13/18 19:25 108 28 35 10/13/18 19:00 83 23 114/44 (67) 99 10/13/18 19:00 85 10/13/18 18:30 86 18 104/46 (65) 99 10/13/18 18:00 66 20 114/37 (62) 100 10/13/18 17:30 66 20 114/37 (62) 100 10/13/18 17:05 94 23 35 10/13/18 17:00 80 24 120/37 (64) 99 10/13/18 16:30 62 18 130/38 (68) 100 10/13/18 16:00 65 10/13/18 16:00 100.0 69 17 105/36 (59) 100 10/13/18 16:00 35 10/13/18 16:00 100 10/13/18 15:30 70 20 102/38 (59) 99 10/13/18 15:10 67 18 35 10/13/18 15:00 62 21 106/33 (57) 100 10/13/18 14:30 70 19 108/39 (62) 100 10/13/18 14:21 80/35 10/13/18 14:00 63 18 75/34 (48) 97 10/13/18 13:16 71 18 35 10/13/18 13:00 70 18 88/42 (57) 98 10/13/18 12:00 Mechanical Ventilator Mechanical Ventilator 10/13/18 12:00 99.6 64 18 81/38 (52) 98 10/13/18 12:00 100 10/13/18 12:00 73 10/13/18 12:00 45 10/13/18 11:03 67 19 35 10/13/18 11:00 63 18 84/38 (53) 98 10/13/18 10:00 65 10/13/18 10:00 65 18 83/32 (49) 98 10/13/18 09:00 74 18 97/41 (59) 98 10/13/18 08:57 77 18 35 10/13/18 08:00 100 10/13/18 08:00 64 18 78/35 (49) 98 10/13/18 08:00 63 10/13/18 08:00 100 10/13/18 08:00 Mechanical Ventilator Mechanical Ventilator 10/13/18 07:54 65 18 45 10/13/18 07:00 66 18 78/30 (46) 100 10/13/18 06:35 73 18 65 10/13/18 06:00 99.8 77 12 90/38 (55) 100 10/13/18 05:17 74 18 80 10/13/18 05:00 75 14 89/37 (54) 100 10/13/18 04:00 75 10/13/18 04:00 98.9 75 12 86/37 (53) 100 10/13/18 04:00 Mechanical Ventilator Mechanical Ventilator 10/13/18 03:15 75 18 90 10/13/18 03:00 75 18 87/42 (57) 100 10/13/18 02:00 100 10/13/18 02:00 78 18 95/50 (65) 100 10/13/18 01:07 85 15 100 10/13/18 01:00 80 16 53/26 (35) 100 10/13/18 00:00 Mechanical Ventilator Mechanical Ventilator 10/13/18 00:00 100 10/12/18 23:45 98.3 95 15 102/38 (59) 100 10/12/18 23:30 95 10/12/18 23:30 100 10/12/18 23:10 98 17 100 10/12/18 23:00 99 28 93/43 (60) 92 Intake and Output 10/12/18 10/13/18 19:00 07:00 Intake Total 825 ml 905 ml Output Total 450 ml 197 ml Balance 375 ml 708 ml Intake Free Water 300 ml IV Total 250 ml 660 ml Tube Feeding 275 ml 245 ml Output Urine Total 450 ml 197 ml # Voids 1 # Bowel Movements 1 Laboratory Tests Test 10/12/18 22:22 10/13/18 00:08 10/13/18 03:40 10/13/18 07:40 Arterial Blood pH 7.003 (7.350-7.450) 7.293 (7.350-7.450) 7.457 (7.350-7.450) Arterial Blood Partial Pressure CO2 118.4 mmHg (35.0-45.0) *H 49.3 mmHg (35.0-45.0) H 30.5 mmHg (35.0-45.0) L Arterial Blood Partial Pressure O2 85.1 mmHg (75.0-100.0) 117.3 mmHg (75.0-100.0) H 134.1 mmHg (75.0-100.0) H Arterial Blood HCO3 28.7 mmol/L (22.0-26.0) H 23.3 mmol/L (22.0-26.0) 21.1 mmol/L (22.0-26.0) L Arterial Blood Oxygen Saturation 94.1 % (95-100) L 98.0 % (95-100) 98.4 % (95-100) Arterial Blood Base Excess -5.1 (-2-2) L -3.4 (-2-2) L -2.2 (-2-2) L Khadar Test Positive Positive Positive White Blood Count 4.9 K/UL (4.8-10.8) Red Blood Count 2.96 M/UL (4.20-5.40) L Hemoglobin 9.0 G/DL (12.0-16.0) L Hematocrit 27.3 % (37.0-47.0) L Mean Corpuscular Volume 92 FL (80-99) Mean Corpuscular Hemoglobin 30.4 PG (27.0-31.0) Mean Corpuscular Hemoglobin Concent 32.9 G/DL (32.0-36.0) Red Cell Distribution Width 13.8 % (11.6-14.8) Platelet Count 115 K/UL (150-450) L Mean Platelet Volume 6.8 FL (6.5-10.1) Neutrophils (%) (Auto) 77.9 % (45.0-75.0) H Lymphocytes (%) (Auto) 12.3 % (20.0-45.0) L Monocytes (%) (Auto) 8.2 % (1.0-10.0) Eosinophils (%) (Auto) 0.0 % (0.0-3.0) Basophils (%) (Auto) 1.6 % (0.0-2.0) Sodium Level 145 MMOL/L (136-145) Potassium Level 3.8 MMOL/L (3.5-5.1) Chloride Level 113 MMOL/L (98-107) H Carbon Dioxide Level 23 MMOL/L (21-32) Anion Gap 9 mmol/L (5-15) Blood Urea Nitrogen 61 mg/dL (7-18) H Creatinine 1.2 MG/DL (0.55-1.30) Estimat Glomerular Filtration Rate mL/min (>60) Glucose Level 123 MG/DL (74-106) H Calcium Level 8.2 MG/DL (8.5-10.1) L Carcinoembryonic Antigen Pending Test 10/13/18 19:28 Magnesium Level 2.3 MG/DL (1.8-2.4) Microbiology Date/Time Source Procedure Growth Status 10/11/18 19:23 Blood Blood Culture - Preliminary NO GROWTH AFTER 24 HOURS Resulted 10/11/18 19:20 Blood Blood Culture - Preliminary NO GROWTH AFTER 24 HOURS Resulted 10/11/18 19:23 Nasal Nares Influenza Types A,B Antigen (MAMIE) - Final Complete Huber Humphrey MD Oct 13, 2018 20:30
[2018-10-13] MEDS: Heparin 5000 units/ml inj SUBQ SCH (20:57)
[2018-10-14] VITALS (23 sets, daily range): BP systolic 80–129; BP diastolic 34–58
[2018-10-14] MEDS: NovoLOG Insulin Flexpen SUBQ SCH ×4 (00:25→19:00)
[2018-10-14] MEDS ORDERED: D5NS 1,000 ML IV SCH (03:15)
[2018-10-14] MEDS: Piperacillin/Tazobactam 3.375 GM in NS 110 ML IVPB SCH (04:45)
--- NOTE | 2018-10-14 05:39 | NUR ---
NURSE NOTES:Pts temp went up to 101.4F, cooling measures done, Tylenol 650mg GT was given.
--- NOTE | 2018-10-14 06:08 | NUR ---
NURSE NOTES:Temp 100.4. cooling measures on progress.
--- NOTE | 2018-10-14 07:25 | NUR ---
HAND-OFF: Report given to say Aldana
[2018-10-14 07:37] LABS: BASOPHILS % (AUTO) 0.5 % (0.0-2.0); EOSINOPHILS % (AUTO) 0.3 % (0.0-3.0); HEMATOCRIT 24.6 % (37.0-47.0); HEMOGLOBIN 8.1 G/DL (12.0-16.0); LYMPHOCYTES % (AUTO) 15.1 % (20.0-45.0); MEAN CORPUSCULAR VOLUME 91 FL (80-99); MONOCYTES % (AUTO) 5.5 % (1.0-10.0); NEUTROPHILS % (AUTO) 78.6 % (45.0-75.0); PLATELET COUNT 118 K/UL (150-450); RED CELL DISTRIBUTION WIDTH 13.7 % (11.6-14.8); WHITE BLOOD COUNT 6.1 K/UL (4.8-10.8)
[2018-10-14 07:50] LABS: ALANINE AMINOTRANSFERASE 24 U/L (12-78); ALBUMIN 1.9 G/DL (3.4-5.0); ALBUMIN/GLOBULIN RATIO 0.6 (1.0-2.7); ALKALINE PHOSPHATASE 65 U/L (46-116); ANION GAP 10 mmol/L (5-15); ASPARTATE AMINO TRANSFERASE 35 U/L (15-37); BILIRUBIN,TOTAL 0.4 MG/DL (0.2-1.0); BLOOD UREA NITROGEN 40 mg/dL (7-18); CALCIUM 8.2 MG/DL (8.5-10.1); CARBON DIOXIDE 22 MMOL/L (21-32); CHLORIDE 119 MMOL/L (98-107); CREATININE 1.2 MG/DL (0.55-1.30); PHOSPHORUS 0.8 MG/DL (2.5-4.9); SODIUM 151 MMOL/L (136-145)
[2018-10-14 07:53] LABS: POTASSIUM 2.7 MMOL/L (3.5-5.1)
[2018-10-14] MEDS: D5NS 1,000 ML IV SCH (08:00)
--- NOTE | 2018-10-14 08:48 | NUR ---
RADIOLOGY DEPT CHEST X-RAY DONE.-P.DYE
[2018-10-14] MEDS: Heparin 5000 units/ml inj SUBQ SCH ×2 (09:00→21:00)
[2018-10-14] MEDS: Aspirin Baby 81mg GT SCH (09:00)
--- NOTE | 2018-10-14 09:30 | Consultation ---
DATE OF CONSULTATION: 10/13/2018 CARDIOLOGY CONSULTATION REFERRING PHYSICIAN: Barbara Sky M.D. REASON FOR REFERRAL: Tachycardia on telemetry. HISTORY OF PRESENT ILLNESS: This is an elderly female who is really not able to provide any meaningful history whatsoever. The patient is on mechanical ventilator. Nursing staff noted that the patient's telemetry note was reviewed. The heart rates in the 170s to 190s on several occasions and this consultation is subsequently requested by Dr. Sky. On my arrival, the patient is on the ventilator, not communicating, not responsive, and telemetry strips were reviewed. The patient's data has been reviewed. The patient has been admitted to the hospital because of altered mentation and fevers and she was noted by the practitioner visiting her to be respiratory distress, hypoxic, and altered mental status. This has been going on for approximately one week, worse today and saturations were noted by EMS to be low. They put on oxygen and brought her to the emergency room at [facility]. She has been intubated on the mechanical ventilator at this time. The patient's old records were reviewed. PAST MEDICAL HISTORY: She has a past medical history of prior hospitalization in September 2017 for sepsis, respiratory failure, aspiration, old CVA with left hemiparesis, diabetes mellitus, uncontrolled hypertension, congestive heart failure, hypertension, episodes of hypotension, dysphagia on gastrostomy tube feedings, moderate pulmonary hypertension, anemia, sacral decubitus ulcers, and she has apparently had history of tracheostomy back in 2014, but subsequently was reversed, history of deep venous thrombosis, status post IVC filter placement, COPD, chronic anemia, protein-calorie malnutrition, Parkinson's disease, Parkinson's related dementia, chronic constipation, hypernatremia, dehydration, functional quadriplegia, pneumonia, respiratory failure, gram-positive cocci sepsis. SOCIAL HISTORY: The patient resides in a convalescent facility. No alcohol, tobacco, or drug use is known. ALLERGIES: None. REVIEW OF SYSTEMS: Really unable to obtain. PHYSICAL EXAMINATION: GENERAL: Shows to be elderly female, on a mechanical ventilator. Not responsive, noncommunicative, contracted left lower extremity. NECK: Supple. LUNGS: A few rhonchi noted. CARDIAC: Regular rate and rhythm. No heaves or thrills noted. ABDOMEN: Soft and nontender. EXTREMITIES: There is no edema. NEUROLOGICAL: Noncommunicative or responsive. LABORATORY AND DIAGNOSTIC DATA: White count of 4.9, hemoglobin 9, and platelet count of 115,000. Blood gases, pH of 7.47, pCO2 of 30, pO2 of 134, bicarb 21, and 98% saturation. Sodium 145, potassium 3.8, chloride 115, bicarb of 23, BUN of 61, creatinine 1.2, and glucose of 123. Calcium is 8.2. Troponin one set was negative on 10/11/2018. Repeat levels are not known. Albumin of 2.7. Liver function tests otherwise unremarkable. INR of 1 and PTT of 31 at the time of admission, and urinalysis 2 to 4 RBCs and 0 WBCs. Chest x-ray showed endotracheal tube in good position. Ground-glass interstitial opacities again noted bilaterally. Last echocardiogram back in February 2017 had shown ejection fraction of 55%. The patient's electrocardiogram performed on 10/11/2018, shows normal sinus rhythm. This is abnormal axis. This may be on the reversal. However, really no episodes of other abnormalities. The telemetry strips available in the chart are reviewed. It does show motion artifact on the upper lead 2 equivalent on telemetry unit, but the lower really does not show any significant episodes of tachycardia. In fact, the heart rates in the 80s only with V1 equivalent. It is noted that she has some tremor-like activity on the baseline that may be construed on intermittently as a . 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 No acute DVTs are noted. EKG by paramedics were also reviewed, did not show any evidence of tachycardia. ASSESSMENT AND PLAN: 1. Respiratory failure. 2. Bilateral pneumoniae. 3. History of cerebrovascular accident. 4. Azotemia and renal insufficiency. 5. Anemia. 6. Relative thrombocytopenia. This patient was seen in cardiac consultation. The patient's telemetry strips were reviewed consistent with artifactual abnormalities on one of the leads, not present on the other one. With a known history of Parkinson's supposedly I would imagine this may be related to parkinsonian tremor or other reasons for tremor that causes this artifactual changes. EKG will be ordered for today. Repeat cardiac enzymes for tomorrow. Repeat EKG for tomorrow morning and an echocardiogram will also be ordered and the patient will be followed. Dr. Sky, thank you for allowing me to participate in this patient. Huber Humphrey M.D. DR: Ambika JOB#: [id number] CC:
[2018-10-14] MEDS: Pantoprazole Inj IVP SCH (10:11)
[2018-10-14] MEDS ORDERED: Potassium Chloride 40 MEQ in Sodium Chloride 500ML 550 ML IVPB ONE (10:15)
--- NOTE | 2018-10-14 10:18 | Pulmonolgy Critical Care Note ---
Critical Care - Asmt/Plan Problems: (1) Acute respiratory failure (2) Healthcare-associated pneumonia (3) Sepsis (4) Diabetes mellitus type II, uncontrolled (5) Feeding by G-tube (6) Hemiparesis affecting left side as late effect of cerebrovascular accident Respiratory: monitor respiratory rate, adjust FIO2, CXR Cardiac: continue to monitor HR/BP Renal: F/U I&O, keep IV fluid Infectious Disease: check cultures, continue antibiotics Gastrointestinal: continue feedings/current rate Endocrine: monitor blood sugar, continue sliding scale insulin Hematologic: transfuse if hgb<8.5 Neurologic: PRN Ativan, keep patient comfortable Affect: PRN ativan Prophylaxis: Protonix Time Spent (Minutes): 40 Notes 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: marine 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 mechanic, cardio Discussed with: nurses, consultants, complex case managermanager utilization management - Objective Last 24 Hour Vital Signs Date Time Temp Pulse Resp B/P (MAP) Pulse Ox O2 Delivery O2 Flow Rate FiO2 10/14/18 09:50 67 18 35 10/14/18 09:00 113/45 10/14/18 08:00 35 10/14/18 07:46 63 18 35 10/14/18 06:08 100.4 10/14/18 06:00 90 20 92/47 (62) 99 10/14/18 05:28 92 34 35 10/14/18 05:00 101.4 90 21 119/48 (71) 98 10/14/18 04:00 79 10/14/18 04:00 Endotracheal Tube Mechanical Ventilator 10/14/18 04:00 99.6 75 21 115/49 (71) 98 10/14/18 04:00 35 10/14/18 03:21 73 22 35 10/14/18 03:00 73 21 122/58 (79) 99 10/14/18 02:00 75 21 124/50 (74) 98 10/14/18 01:03 70 18 35 10/14/18 01:00 85 21 101/38 (59) 99 10/14/18 00:00 35 10/14/18 00:00 75 10/14/18 00:00 99.8 72 22 109/40 (63) 99 10/14/18 00:00 Endotracheal Tube Mechanical Ventilator 10/13/18 23:26 78 23 35 10/13/18 23:00 74 22 110/37 (61) 99 10/13/18 22:00 77 22 109/44 (65) 99 10/13/18 21:47 75 21 35 10/13/18 21:00 80 22 104/62 (76) 100 10/13/18 20:00 99.9 74 20 102/40 (60) 100 10/13/18 20:00 74 10/13/18 20:00 35 10/13/18 19:51 Endotracheal Tube Mechanical Ventilator 10/13/18 19:30 85 26 109/41 (63) 98 10/13/18 19:30 86 115/49 10/13/18 19:25 108 28 35 10/13/18 19:00 83 23 114/44 (67) 99 10/13/18 19:00 85 10/13/18 18:30 86 18 104/46 (65) 99 10/13/18 18:00 66 20 114/37 (62) 100 10/13/18 17:30 66 20 114/37 (62) 100 10/13/18 17:05 94 23 35 10/13/18 17:00 80 24 120/37 (64) 99 10/13/18 16:30 62 18 130/38 (68) 100 10/13/18 16:00 65 10/13/18 16:00 100.0 69 17 105/36 (59) 100 10/13/18 16:00 35 10/13/18 16:00 100 10/13/18 15:30 70 20 102/38 (59) 99 10/13/18 15:10 67 18 35 10/13/18 15:00 62 21 106/33 (57) 100 10/13/18 14:30 70 19 108/39 (62) 100 10/13/18 14:21 80/35 10/13/18 14:00 63 18 75/34 (48) 97 10/13/18 13:16 71 18 35 10/13/18 13:00 70 18 88/42 (57) 98 10/13/18 12:00 Mechanical Ventilator Mechanical Ventilator 10/13/18 12:00 99.6 64 18 81/38 (52) 98 10/13/18 12:00 100 10/13/18 12:00 73 10/13/18 12:00 45 10/13/18 11:03 67 19 35 10/13/18 11:00 63 18 84/38 (53) 98 Status: sedated Condition: critical HEENT: atraumatic Neck: full ROM Heart: HR/BP stable, HR/BP unstable Abdomen: soft, active bowel sounds Extremities: edema Decubiti: stage Micro: Microbiology Date/Time Source Procedure Growth Status 10/11/18 19:23 Blood Blood Culture - Preliminary NO GROWTH AFTER 24 HOURS Resulted 10/11/18 19:20 Blood Blood Culture - Preliminary NO GROWTH AFTER 24 HOURS Resulted 10/11/18 19:23 Nasal Nares Influenza Types A,B Antigen (MAMIE) - Final Complete Accucheck: 168 Critical Care - Subjective ROS Limited/Unobtainable: Yes ICU Day: 3 Intubation Day: 3 Interval Events: had episodes of tachy last night, was seen by dr Humphrey, Levophed was stopped and Neosynephrine started. Condition: critical EKG Rhythm: Sinus Rhythm FI02: 35 Vent Support Breath Rate: 18 Vent Support Mode: AC Vent Tidal Volume: 450 Sputum Amount: Small PEEP: 5.0 PIP: 25 Tube Feeding Amount: 35 I&O: Intake and Output 10/13/18 10/14/18 19:00 07:00 Intake Total 1778.4 ml 1920.0 ml Output Total 225 ml 811 ml Balance 1553.4 ml 1109.0 ml Intake Free Water 90 ml IV Total 1463.4 ml 1410.0 ml Tube Feeding 315 ml 420 ml Output Urine Total 225 ml 810 ml Stool Total 1 ml # Voids 4 # Bowel Movements 2 CXR: bilateral infiltrate. ET-Tube: 7.0 ET Position: 21 Labs: Laboratory Tests Test 10/13/18 19:28 10/14/18 04:00 10/14/18 06:37 Magnesium Level 2.3 MG/DL (1.8-2.4) 2.2 MG/DL (1.8-2.4) Arterial Blood pH 7.435 (7.350-7.450) Arterial Blood Partial Pressure CO2 32.1 mmHg (35.0-45.0) L Arterial Blood Partial Pressure O2 81.6 mmHg (75.0-100.0) Arterial Blood HCO3 21.1 mmol/L (22.0-26.0) L Arterial Blood Oxygen Saturation 96.3 % (95-100) Arterial Blood Base Excess -2.6 (-2-2) L Khadar Test Positive White Blood Count 6.1 K/UL (4.8-10.8) Red Blood Count 2.70 M/UL (4.20-5.40) L Hemoglobin 8.1 G/DL (12.0-16.0) L Hematocrit 24.6 % (37.0-47.0) L Mean Corpuscular Volume 91 FL (80-99) Mean Corpuscular Hemoglobin 29.9 PG (27.0-31.0) Mean Corpuscular Hemoglobin Concent 32.8 G/DL (32.0-36.0) Red Cell Distribution Width 13.7 % (11.6-14.8) Platelet Count 118 K/UL (150-450) L Mean Platelet Volume 6.2 FL (6.5-10.1) L Neutrophils (%) (Auto) 78.6 % (45.0-75.0) H Lymphocytes (%) (Auto) 15.1 % (20.0-45.0) L Monocytes (%) (Auto) 5.5 % (1.0-10.0) Eosinophils (%) (Auto) 0.3 % (0.0-3.0) Basophils (%) (Auto) 0.5 % (0.0-2.0) Sodium Level 151 MMOL/L (136-145) H Potassium Level 2.7 MMOL/L (3.5-5.1) *L Chloride Level 119 MMOL/L (98-107) H Carbon Dioxide Level 22 MMOL/L (21-32) Anion Gap 10 mmol/L (5-15) Blood Urea Nitrogen 40 mg/dL (7-18) H Creatinine 1.2 MG/DL (0.55-1.30) Estimat Glomerular Filtration Rate mL/min (>60) Glucose Level 177 MG/DL (74-106) H Calcium Level 8.2 MG/DL (8.5-10.1) L Phosphorus Level 0.8 MG/DL (2.5-4.9) *L Total Bilirubin 0.4 MG/DL (0.2-1.0) Aspartate Amino Transf (AST/SGOT) 35 U/L (15-37) Alanine Aminotransferase (ALT/SGPT) 24 U/L (12-78) Alkaline Phosphatase 65 U/L (46-116) Troponin I 0.074 ng/mL (0.000-0.056) Pro-B-Type Natriuretic Peptide 5608 pg/mL (0-125) H Total Protein 5.2 G/DL (6.4-8.2) L Albumin 1.9 G/DL (3.4-5.0) L Globulin 3.3 g/dL Albumin/Globulin Ratio 0.6 (1.0-2.7) L Barbara Sky MD Oct 14, 2018 10:18
--- NOTE | 2018-10-14 10:54 | NUR ---
CASE MANAGEMENT: REVIEW SI: SEPSIS . PNA T 100.4 HR IS: PROTONIX IV QD HEPARIN SQ Q12HR VANCO IV Q24HR DOXYCYCLINE IV Q12HR ASA GT QD LEVOPHED IV Q24HR ICU STATUS DCP: PATIENT IS FROM [facility]
--- NOTE | 2018-10-14 11:34 | Diagnostic Imaging Report ---
Indication: Dyspnea Comparison: 10/13/2018 A single view chest radiograph was obtained. Findings: Further repositioning of the endotracheal tube now about 3 cm above the minerva. Heart size is stable. Bilateral basilar consolidative opacities noted. New right upper extremity PICC line noted with the tip projected over the SVC and right atrium. IMPRESSION: Endotracheal tube is in good position. Interval placement of a PICC line in good position. No change otherwise.
--- NOTE | 2018-10-14 12:00 | Consultation ---
DATE OF CONSULTATION: 10/12/2018 INFECTIOUS DISEASE CONSULTATION CONSULTING PHYSICIAN: Porfirio Valentine M.D. REFERRING PHYSICIAN: Dimitrios Daly M.D. REASON FOR CONSULTATION: Aspiration pneumonia with sepsis and respiratory failure. Recommendation for antibiotics treatment. HISTORY OF PRESENT ILLNESS: The patient is a 78-year-old English female, who is a resident of [facility], was brought into [facility] Emergency Room for worsening shortness of breath, which started the day before. The patient was found to be hypoxemic on the scene with O2 saturation of 80%. Chest x-ray showed lower lobe infiltration concerning for aspiration pneumonia. So, she was started on vancomycin and Zosyn by the admitting physician and Infectious Disease consultation was requested for antibiotics treatment and further management. As of note, the patient is a poor historian and altered, cannot provide any history at this point. History was mainly obtained from the medical record and niece. REVIEW OF SYSTEMS: Unable to obtain. The patient is a poor historian, cannot provide any history. PAST MEDICAL HISTORY: Significant for CVA, diabetes, hypertension, with left hemiparesis and contraction of the upper extremities. PAST SURGICAL HISTORY: She had appendectomy, PEG tube placement in 2004, tracheostomy due to pneumothorax in 2014 with reversal. ALLERGIES: No known drug allergy. SOCIAL HISTORY: The patient is a resident of [facility]. She had no recent drugs, tobacco, or alcohol abuse. MEDICATIONS: Currently, she is on vancomycin and Zosyn. For rest of her medications, please refer to MAR. LABORATORY AND DIAGNOSTIC DATA: Labs showed white count of 6.6, hemoglobin 11.6, and platelet count 129,000. BUN 64, creatinine 1.1. AST 40, ALT 33. Urinalysis showed 2 to 4 red blood cells, moderate amount of amorphous sediment, but negative leukocyte esterase, negative nitrite. Microbiology, influenza screening A and B both negative. Imaging, chest x-ray showed mid and lower lung alveolar infiltrates, worse on the right suggestive of worsening pneumonia. PHYSICAL EXAMINATION: VITAL SIGNS: Temperature 97.5, pulse 86, respirations 26, and blood pressure 96/46. Saturation 92% on nasal cannula with 5 L. GENERAL: An elderly female, altered, contracted, lying in bed unresponsive. Does not follow commands. Not in distress. HEENT: Normocephalic and atraumatic. Pupils are reactive to light equally. Pale sclerae. Unable to assess oral mucosa. NECK: Supple with old tracheostomy scar. No lymphadenopathy. CARDIOVASCULAR: Regular rate and rhythm. No murmur or gallop. LUNGS: She had diminished breathing sounds at the bases with crackles and tachypnea. ABDOMEN: Soft, nontender, and nondistended. Normal bowel sounds. PEG tube site looks intact. No infection or drainage. EXTREMITIES: Contracted with muscle atrophy. No significant edema or cyanosis. SKIN: She had mild sacral erythema with an old pressure wound healed. ASSESSMENT AND RECOMMENDATION: 1. Aspiration pneumonia. Continue vancomycin and Zosyn empiric coverage for now pending cultures. We we will send sputum culture, continue aspiration precaution, and keep head of bed more than 30 degrees. 2. Sepsis due to the above. Continue wide-spectrum antibiotics pending culture. 3. Hypotension, suspect sepsis. Continue wide-spectrum antibiotics with hydration. Monitor culture. Pressor if needed. 4. Fever due to pneumonia. Continue Tylenol and wide-spectrum antibiotics coverage. 5. Acute respiratory failure due to the above. Continue high-flow oxygen. May need BiPAP or intubation for worsening respiratory status if continues to deteriorate. 6. Acute kidney failure due to sepsis and hypotension. Continue hydration. Avoid nephrotoxic medicine. Consult Renal. 7. Toxic metabolic encephalopathy due to sepsis and pneumonia. Continue antibiotics treatment with hydration. Avoid sedative. 8. Diabetes. Recommend tight glycemic control to keep blood glucose between 100 to 140. Thank you for the consult. ID will continue to follow. Porfirio Valentine M.D. DR: PATRICK JOB#: [id number] CC:
[2018-10-14] MEDS ORDERED: Piperacillin/Tazobactam 3.375 GM in NS 110 ML IVPB SCH (13:00)
[2018-10-14] MEDS ORDERED: Sodium Phosphate 30 MM in NS 275 ML IV SCH (13:00)
[2018-10-14] MEDS ORDERED: Haloperidol 5mg/ml Inj IM PRN (13:30)
--- NOTE | 2018-10-14 13:41 | Consultation ---
History of Present Illness General Chief Complaint: Altered Level of Consciousness Present Illness HPI 78-year-old Sammarinese-speaking female, who presents with chief complaint of shortness of breath. the pt is lethargic however severely agitated. The pt is waxing and waning of consciousness. The pt is currently intubated and is unable to take any po meds. Allergies: Coded Allergies: No Known Allergies (Verified , 08/14/06) Medication History Scheduled Aspirin* (Aspir 81*), 81 MG GT DAILY, (Reported) Azilsartan Med/Chlorthalidone (Edarbyclor 40-12.5 Mg Tablet), 1 TAB GT DAILY, ( Reported) Esomeprazole Magnesium (Nexium), 40 MG GT DAILY, (Reported) Olopatadine (Patanol), 1 DROP OD BID, (Reported) Sitagliptin (Januvia), 100 MG ORAL DAILY, (Reported) Zinc Sulfate (Zinc Sulfate*), 220 MG GT DAILY, (Reported) [Metoprolol Tartrate*], 12.5 MG GT DAILY, (Reported) Scheduled PRN Acetaminophen* (Acetaminophen 325MG Tablet*), 650 MG ORAL Q6H PRN for Fever/ Headache/Mild Pain, (Reported) Discontinued Medications Albuterol Sulfate* (Albuterol Sulfate Hhn*), 3 ML INH DAILY, (Reported) Discontinued Reason: MD discontinued med Albuterol Sulfate* (Albuterol Sulfate Hhn*), 3 ML INH Q6H PRN for Shortness of Breath, (Reported) Discontinued Reason: MD discontinued med Bisacodyl* (Dulcolax*), 10 MG RC DAILY PRN for Constipation, (Reported) Discontinued Reason: MD discontinued med Insulin Glargine (Lantus), 2 SUBQ BEDTIME, (Reported) Discontinued Reason: MD discontinued med Ipratropium [employer] [place] 0.5MG/2.5ML (Ipratropium [employer] [place] 0.5MG/2.5ML), 0.5 MG HHN Q4HR PRN for Shortness of Breath, (Reported) Discontinued Reason: MD discontinued med Magnesium Hydroxide* (Milk Of Magnesia*), 30 ML ORAL DAILY PRN for Constipation, (Reported) Discontinued Reason: MD discontinued med Melatonin (Melatonin), 3 MG ORAL BEDTIME PRN for Insomnia, (Reported) Discontinued Reason: MD discontinued med Na Phos,M-B/Na Phos,Di-Ba* (Fleet Enema*), 133 ML RECTAL DAILY PRN for Constipation, (Reported) Discontinued Reason: MD discontinued med Polyethylene Glycol 3350* (Miralax*), 17 GM GT BID, (Reported) Discontinued Reason: MD discontinued med Temazepam* (Temazepam*), 30 MG GT BEDTIME PRN for Insomnia, (Reported) Discontinued Reason: MD discontinued med [Humalog SS], (Reported) Discontinued Reason: MD discontinued med [multivit liquid], 5 ML DT DAILY, (Reported) Discontinued Reason: MD discontinued med Patient History Limited by: medical condition History Provided By: Medical Record, Caregiver - RN, PMD Healthcare decision maker Resuscitation status Full Code Advanced Directive on File Past Medical/Surgical History Past Medical/Surgical History: (1) COPD (chronic obstructive pulmonary disease) (2) Cerebral vascular disease (3) Healthcare-associated pneumonia (4) Sepsis (5) Hypotension (6) JEFFY (acute kidney injury) (7) Sacral decubitus ulcer (8) Anemia (9) Constipation (10) severe fecal impaction (11) Clostridium difficile colitis (12) Hypertension (13) Hypokalemia (14) Metastatic malignant neoplasm to breast (15) Hemiparesis affecting left side as late effect of cerebrovascular accident (16) CHF (congestive heart failure) (17) HTN (hypertension) (18) Malfunction of gastrostomy tube (19) Acute respiratory failure (20) Aspiration pneumonia (21) Sepsis (22) Healthcare-associated pneumonia (23) Diabetes mellitus type II, uncontrolled (24) Feeding by G-tube Review of Systems Psychiatric: Reports: prior hx, anxiety, hallucinations Physical Exam General Appearance: lethargic, confused, agitated Neurologic: disoriented, depressed affect Last 24 Hour Vital Signs Date Time Temp Pulse Resp B/P (MAP) Pulse Ox O2 Delivery O2 Flow Rate FiO2 10/14/18 12:00 35 10/14/18 10:47 67 19 35 10/14/18 09:50 67 18 35 10/14/18 09:00 113/45 10/14/18 08:00 35 10/14/18 08:00 Endotracheal Tube Mechanical Ventilator 10/14/18 07:46 63 18 35 10/14/18 06:08 100.4 10/14/18 06:00 90 20 92/47 (62) 99 1/3/19 05:28 92 34 35 10/14/18 05:00 101.4 90 21 119/48 (71) 98 10/14/18 04:00 79 10/14/18 04:00 Endotracheal Tube Mechanical Ventilator 10/14/18 04:00 99.6 75 21 115/49 (71) 98 10/14/18 04:00 35 10/14/18 03:21 73 22 35 10/14/18 03:00 73 21 122/58 (79) 99 10/14/18 02:00 75 21 124/50 (74) 98 10/14/18 01:03 70 18 35 10/14/18 01:00 85 21 101/38 (59) 99 10/14/18 00:00 35 10/14/18 00:00 75 10/14/18 00:00 99.8 72 22 109/40 (63) 99 10/14/18 00:00 Endotracheal Tube Mechanical Ventilator 10/13/18 23:26 78 23 35 10/13/18 23:00 74 22 110/37 (61) 99 10/13/18 22:00 77 22 109/44 (65) 99 10/13/18 21:47 75 21 35 10/13/18 21:00 80 22 104/62 (76) 100 10/13/18 20:00 99.9 74 20 102/40 (60) 100 10/13/18 20:00 74 10/13/18 20:00 35 10/13/18 19:51 Endotracheal Tube Mechanical Ventilator 10/13/18 19:30 85 26 109/41 (63) 98 10/13/18 19:30 86 115/49 10/13/18 19:25 108 28 35 10/13/18 19:00 83 23 114/44 (67) 99 10/13/18 19:00 85 10/13/18 18:30 86 18 104/46 (65) 99 10/13/18 18:00 66 20 114/37 (62) 100 10/13/18 17:30 66 20 114/37 (62) 100 10/13/18 17:05 94 23 35 10/13/18 17:00 80 24 120/37 (64) 99 10/13/18 16:30 62 18 130/38 (68) 100 10/13/18 16:00 65 10/13/18 16:00 100.0 69 17 105/36 (59) 100 10/13/18 16:00 35 10/13/18 16:00 100 10/13/18 15:30 70 20 102/38 (59) 99 10/13/18 15:10 67 18 35 10/13/18 15:00 62 21 106/33 (57) 100 10/13/18 14:30 70 19 108/39 (62) 100 10/13/18 14:21 80/35 10/13/18 14:00 63 18 75/34 (48) 97 Intake and Output 10/13/18 10/14/18 19:00 07:00 Intake Total 1778.4 ml 1920.0 ml Output Total 225 ml 811 ml Balance 1553.4 ml 1109.0 ml Intake Free Water 90 ml IV Total 1463.4 ml 1410.0 ml Tube Feeding 315 ml 420 ml Output Urine Total 225 ml 810 ml Stool Total 1 ml # Voids 4 # Bowel Movements 2 Laboratory Tests Test 10/13/18 19:28 10/14/18 04:00 10/14/18 06:37 10/14/18 13:00 Magnesium Level 2.3 MG/DL (1.8-2.4) 2.2 MG/DL (1.8-2.4) Arterial Blood pH 7.435 (7.350-7.450) Arterial Blood Partial Pressure CO2 32.1 mmHg (35.0-45.0) L Arterial Blood Partial Pressure O2 81.6 mmHg (75.0-100.0) Arterial Blood HCO3 21.1 mmol/L (22.0-26.0) L Arterial Blood Oxygen Saturation 96.3 % (95-100) Arterial Blood Base Excess -2.6 (-2-2) L Khadar Test Positive White Blood Count 6.1 K/UL (4.8-10.8) Red Blood Count 2.70 M/UL (4.20-5.40) L Hemoglobin 8.1 G/DL (12.0-16.0) L Hematocrit 24.6 % (37.0-47.0) L Mean Corpuscular Volume 91 FL (80-99) Mean Corpuscular Hemoglobin 29.9 PG (27.0-31.0) Mean Corpuscular Hemoglobin Concent 32.8 G/DL (32.0-36.0) Red Cell Distribution Width 13.7 % (11.6-14.8) Platelet Count 118 K/UL (150-450) L Mean Platelet Volume 6.2 FL (6.5-10.1) L Neutrophils (%) (Auto) 78.6 % (45.0-75.0) H Lymphocytes (%) (Auto) 15.1 % (20.0-45.0) L Monocytes (%) (Auto) 5.5 % (1.0-10.0) Eosinophils (%) (Auto) 0.3 % (0.0-3.0) Basophils (%) (Auto) 0.5 % (0.0-2.0) Sodium Level 151 MMOL/L (136-145) H Potassium Level 2.7 MMOL/L (3.5-5.1) *L Chloride Level 119 MMOL/L (98-107) H Carbon Dioxide Level 22 MMOL/L (21-32) Anion Gap 10 mmol/L (5-15) Blood Urea Nitrogen 40 mg/dL (7-18) H Creatinine 1.2 MG/DL (0.55-1.30) Estimat Glomerular Filtration Rate mL/min (>60) Glucose Level 177 MG/DL (74-106) H Calcium Level 8.2 MG/DL (8.5-10.1) L Phosphorus Level 0.8 MG/DL (2.5-4.9) *L Total Bilirubin 0.4 MG/DL (0.2-1.0) Aspartate Amino Transf (AST/SGOT) 35 U/L (15-37) Alanine Aminotransferase (ALT/SGPT) 24 U/L (12-78) Alkaline Phosphatase 65 U/L (46-116) Troponin I 0.074 ng/mL (0.000-0.056) Pro-B-Type Natriuretic Peptide 5608 pg/mL (0-125) H Total Protein 5.2 G/DL (6.4-8.2) L Albumin 1.9 G/DL (3.4-5.0) L Globulin 3.3 g/dL Albumin/Globulin Ratio 0.6 (1.0-2.7) L Vancomycin Level Trough Pending Height (Feet): 5 Height (Inches): 4.00 Weight (Pounds): 122 Medications Current Medications Medications (Trade) Dose Ordered Sig/Christopher Route PRN Reason Start Time Stop Time Status Last Admin Dose Admin Acetaminophen (Tylenol) 650 mg Q4H PRN GT Mild Pain/Temp > 101 10/13/18 04:30 11/11/18 04:29 10/14/18 05:38 Chlorhexidine Gluconate (Tatiana-Hex 2%) 1 applic DAILY@2000 TOPIC 10/13/18 20:00 11/12/18 19:59 10/13/18 20:23 Dextrose (Dextrose 50%) 25 ml Q30M PRN IV Hypoglycemia 10/13/18 03:30 11/11/18 04:29 Dextrose (Dextrose 50%) 50 ml Q30M PRN IV Hypoglycemia 10/13/18 03:30 11/11/18 04:29 Haloperidol Lactate (Haldol) 5 mg Q6H PRN IM Agitation 10/14/18 13:30 11/13/18 13:29 Heparin Sodium (Porcine) (Heparin 5000 units/ml) 5,000 units EVERY 12 HOURS SUBQ 10/13/18 21:00 11/12/18 20:59 10/13/18 20:57 Insulin Aspart (NovoLOG) EVERY 6 HOURS SUBQ 10/13/18 06:00 11/11/18 06:29 10/14/18 06:05 Magnesium Sulfate 100 ml @ 100 mls/hr Q1H IVPB 10/14/18 12:45 10/14/18 14:44 Norepinephrine Bitartrate 4 mg/ Dextrose 250 ml @ 0 mls/hr Q24H IV 10/13/18 09:00 11/12/18 08:59 10/13/18 14:21 Pantoprazole (Protonix) 40 mg DAILY IVP 10/14/18 09:00 11/13/18 08:59 10/14/18 10:11 Phenylephrine HCl 50 mg/Dextrose 250 ml @ 0 mls/hr Q24H IV 10/13/18 19:30 11/12/18 19:29 Piperacillin Sod/ Tazobactam Sod 3.375 gm/Sodium Chloride 110 ml @ 27.5 mls/hr Q8HR@0500,1300,2100 IVPB 10/14/18 13:00 10/21/18 12:59 Potassium Chloride 30 meq/ Dextrose 1,015 ml @ 50 mls/hr [id number] IV 10/14/18 12:00 11/13/18 11:59 Sitagliptin Phosphate (Januvia) 100 mg ACBREAKFAST GT 10/13/18 06:30 11/11/18 06:29 10/14/18 07:38 Sodium Phosphate 30 mm/Sodium Chloride 285 ml @ 47.5 mls/hr ONCE IV 10/14/18 13:00 10/14/18 15:00 Vancomycin HCl (Vanco rx to dose) 1 ea DAILY PRN MISC Per rx protocol 10/13/18 09:00 11/11/18 12:14 Vancomycin/Sodium Chloride 250 ml @ 166.667 mls/hr Q24H IVPB 10/13/18 14:00 10/17/18 13:59 10/13/18 14:22 Assessment/Plan Problem List: (1) Toxic encephalopathy ICD Codes: G92 - Toxic encephalopathy SNOMED: [id number] Status: stable Assessment/Plan Haldol 5mg Im q6hr prn/agitation dw Trever Ulloa MD Oct 14, 2018 13:41
[2018-10-14] MEDS: Meropenem 1 GM in NS 55 ML IVPB SCH (15:36)
[2018-10-14] MEDS: Vancomycin 1gm/D5W 275ml IVPB SCH ×2 (16:15)
--- NOTE | 2018-10-14 16:49 | Infectious Diseases Prog Note ---
Assessment/Plan Problems: (1) Aspiration pneumonia Assessment & Plan: with significant secretions and fever while on vancomycin and zosyn , will switch zosyn to meropenem empirically pending sputum culture , aspiration precaution with aggressive suctioning , keep HOB > 30 degree .monitor CXR (2) Sepsis Assessment & Plan: due to the above , on wide spectrum antibiotics , with negative blood culture. will repeat blood culture today (3) Acute respiratory failure Assessment & Plan: due to the above , intubated on mechanical ventilation , monitor CXR and ABG (4) Hypotension Assessment & Plan: suspect due to sepsis , continue antibiotics and hydration (5) Diabetes mellitus type II, uncontrolled Assessment & Plan: recommend tight glycemic control to keep blood glucose between 100-140 (6) JEFFY (acute kidney injury) Assessment & Plan: due to hypotension and sepsis, continue hydration, monitor renal function, and UOP Subjective ROS Limited/Unobtainable: Yes Allergies: Coded Allergies: No Known Allergies (Verified , 08/14/06) Subjective she was still intubated and on mechanical ventilation , in ICU , for close monitoring , had low grade fever . no diarrhea Objective Vital Signs Last 24 Hour Vital Signs Date Time Temp Pulse Resp B/P (MAP) Pulse Ox O2 Delivery O2 Flow Rate FiO2 10/14/18 15:21 88 20 35 10/14/18 13:15 94 29 35 10/14/18 12:00 35 10/14/18 10:47 67 19 35 10/14/18 09:50 67 18 35 10/14/18 09:00 113/45 10/14/18 08:00 35 10/14/18 08:00 Endotracheal Tube Mechanical Ventilator 10/14/18 07:46 63 18 35 10/14/18 06:08 100.4 10/14/18 06:00 90 20 92/47 (62) 99 10/14/18 05:28 92 34 35 10/14/18 05:00 101.4 90 21 119/48 (71) 98 10/14/18 04:00 79 10/14/18 04:00 Endotracheal Tube Mechanical Ventilator 10/14/18 04:00 99.6 75 21 115/49 (71) 98 10/14/18 04:00 35 10/14/18 03:21 73 22 35 10/14/18 03:00 73 21 122/58 (79) 99 10/14/18 02:00 75 21 124/50 (74) 98 10/14/18 01:03 70 18 35 10/14/18 01:00 85 21 101/38 (59) 99 10/14/18 00:00 35 10/14/18 00:00 75 10/14/18 00:00 99.8 72 22 109/40 (63) 99 10/14/18 00:00 Endotracheal Tube Mechanical Ventilator 10/13/18 23:26 78 23 35 10/13/18 23:00 74 22 110/37 (61) 99 10/13/18 22:00 77 22 109/44 (65) 99 10/13/18 21:47 75 21 35 10/13/18 21:00 80 22 104/62 (76) 100 10/13/18 20:00 99.9 74 20 102/40 (60) 100 10/13/18 20:00 74 10/13/18 20:00 35 10/13/18 19:51 Endotracheal Tube Mechanical Ventilator 10/13/18 19:30 85 26 109/41 (63) 98 10/13/18 19:30 86 115/49 10/13/18 19:25 108 28 35 10/13/18 19:00 83 23 114/44 (67) 99 10/13/18 19:00 85 10/13/18 18:30 86 18 104/46 (65) 99 10/13/18 18:00 66 20 114/37 (62) 100 10/13/18 17:30 66 20 114/37 (62) 100 10/13/18 17:05 94 23 35 10/13/18 17:00 80 24 120/37 (64) 99 Height (Feet): 5 Height (Inches): 4.00 Weight (Pounds): 122 General Appearance: WD/WN, no acute distress, cachetic HEENT: normocephalic, anicteric, supple, no JVD, other - left tounge wound with dry blood on her lips Respiratory/Chest: chest wall non-tender, no respiratory distress, no accessory muscle use, decreased breath sounds, crackles/rales Cardiovascular: normal peripheral pulses, normal rate, regular rhythm, no gallop/murmur, no JVD Abdomen: normal bowel sounds, soft, non tender, no organomegaly, non distended , no mass, no scars Genitourinary: normal external genitalia Extremities: no cyanosis, no clubbing Skin: no rash, no lesions, ulcers Neurologic/Psychiatric: unresponsiveness Lymphatic: no neck adenopathy, no groin adenopathy Musculoskeletal: atrophy Microbiology Date/Time Source Procedure Growth Status 10/11/18 19:23 Blood Blood Culture - Preliminary NO GROWTH AFTER 48 HOURS Resulted 10/11/18 19:20 Blood Blood Culture - Preliminary NO GROWTH AFTER 48 HOURS Resulted 10/11/18 23:00 Nasal Nares MRSA Culture - Final Staphylococcus Aureus - Mrsa Complete 10/11/18 19:23 Nasal Nares Influenza Types A,B Antigen (MAMIE) - Final Complete 10/11/18 23:20 Rectum - Final NO CARBAPENEM-RESISTANT ENTEROBACTERI... Complete 10/11/18 23:00 Rectum VRE Culture - Final Enterococcus Faecalis - Vre Complete Laboratory Tests Test 10/13/18 19:28 10/14/18 04:00 10/14/18 06:37 10/14/18 13:00 Magnesium Level 2.3 MG/DL (1.8-2.4) 2.2 MG/DL (1.8-2.4) Arterial Blood pH 7.435 (7.350-7.450) Arterial Blood Partial Pressure CO2 32.1 mmHg (35.0-45.0) L Arterial Blood Partial Pressure O2 81.6 mmHg (75.0-100.0) Arterial Blood HCO3 21.1 mmol/L (22.0-26.0) L Arterial Blood Oxygen Saturation 96.3 % (95-100) Arterial Blood Base Excess -2.6 (-2-2) L Khadar Test Positive White Blood Count 6.1 K/UL (4.8-10.8) Red Blood Count 2.70 M/UL (4.20-5.40) L Hemoglobin 8.1 G/DL (12.0-16.0) L Hematocrit 24.6 % (37.0-47.0) L Mean Corpuscular Volume 91 FL (80-99) Mean Corpuscular Hemoglobin 29.9 PG (27.0-31.0) Mean Corpuscular Hemoglobin Concent 32.8 G/DL (32.0-36.0) Red Cell Distribution Width 13.7 % (11.6-14.8) Platelet Count 118 K/UL (150-450) L Mean Platelet Volume 6.2 FL (6.5-10.1) L Neutrophils (%) (Auto) 78.6 % (45.0-75.0) H Lymphocytes (%) (Auto) 15.1 % (20.0-45.0) L Monocytes (%) (Auto) 5.5 % (1.0-10.0) Eosinophils (%) (Auto) 0.3 % (0.0-3.0) Basophils (%) (Auto) 0.5 % (0.0-2.0) Sodium Level 151 MMOL/L (136-145) H Potassium Level 2.7 MMOL/L (3.5-5.1) *L Chloride Level 119 MMOL/L (98-107) H Carbon Dioxide Level 22 MMOL/L (21-32) Anion Gap 10 mmol/L (5-15) Blood Urea Nitrogen 40 mg/dL (7-18) H Creatinine 1.2 MG/DL (0.55-1.30) Estimat Glomerular Filtration Rate mL/min (>60) Glucose Level 177 MG/DL (74-106) H Calcium Level 8.2 MG/DL (8.5-10.1) L Phosphorus Level 0.8 MG/DL (2.5-4.9) *L Total Bilirubin 0.4 MG/DL (0.2-1.0) Aspartate Amino Transf (AST/SGOT) 35 U/L (15-37) Alanine Aminotransferase (ALT/SGPT) 24 U/L (12-78) Alkaline Phosphatase 65 U/L (46-116) Troponin I 0.074 ng/mL (0.000-0.056) Pro-B-Type Natriuretic Peptide 5608 pg/mL (0-125) H Total Protein 5.2 G/DL (6.4-8.2) L Albumin 1.9 G/DL (3.4-5.0) L Globulin 3.3 g/dL Albumin/Globulin Ratio 0.6 (1.0-2.7) L Vancomycin Level Trough 9.4 ug/mL (5.0-12.0) Current Medications Medications (Trade) Dose Ordered Sig/Christopher Route PRN Reason Start Time Stop Time Status Last Admin Dose Admin Acetaminophen (Tylenol) 650 mg Q4H PRN GT Mild Pain/Temp > 101 10/13/18 04:30 11/11/18 04:29 10/14/18 05:38 Chlorhexidine Gluconate (Tatiana-Hex 2%) 1 applic DAILY@2000 TOPIC 10/13/18 20:00 11/12/18 19:59 10/13/18 20:23 Dextrose (Dextrose 50%) 25 ml Q30M PRN IV Hypoglycemia 10/13/18 03:30 11/11/18 04:29 Dextrose (Dextrose 50%) 50 ml Q30M PRN IV Hypoglycemia 10/13/18 03:30 11/11/18 04:29 Haloperidol Lactate (Haldol) 5 mg Q6H PRN IM Agitation 10/14/18 13:30 11/13/18 13:29 10/14/18 15:37 Heparin Sodium (Porcine) (Heparin 5000 units/ml) 5,000 units EVERY 12 HOURS SUBQ 10/13/18 21:00 11/12/18 20:59 10/13/18 20:57 Insulin Aspart (NovoLOG) EVERY 6 HOURS SUBQ 10/13/18 06:00 11/11/18 06:29 10/14/18 14:30 Meropenem 1 gm/ Sodium Chloride 55 ml @ 110 mls/hr Q12H IVPB 10/14/18 15:00 10/19/18 14:59 10/14/18 15:36 Norepinephrine Bitartrate 4 mg/ Dextrose 250 ml @ 0 mls/hr Q24H IV 10/13/18 09:00 11/12/18 08:59 10/13/18 14:21 Pantoprazole (Protonix) 40 mg DAILY IVP 10/14/18 09:00 11/13/18 08:59 10/14/18 10:11 Phenylephrine HCl 50 mg/Dextrose 250 ml @ 0 mls/hr Q24H IV 10/13/18 19:30 11/12/18 19:29 Potassium Chloride 30 meq/ Dextrose 1,015 ml @ 50 mls/hr [id number] IV 10/14/18 12:00 11/13/18 11:59 10/14/18 13:00 Sitagliptin Phosphate (Januvia) 100 mg ACBREAKFAST GT 10/13/18 06:30 11/11/18 06:29 10/14/18 07:38 Vancomycin HCl (Vanco rx to dose) 1 ea DAILY PRN MISC Per rx protocol 10/13/18 09:00 11/11/18 12:14 Vancomycin HCl 1 gm/Dextrose 275 ml @ 183.708 mls/hr Q24H IVPB 10/14/18 15:00 10/19/18 14:59 Porfirio Valentine M.D. Oct 14, 2018 16:49
--- NOTE | 2018-10-14 18:09 | Internal Med Progress Note ---
Subjective Date of Service: Oct 14, 2018 Physician Name Dimitrios Daly Attending Physician Tereso Toro MD Current Medications Medications (Trade) Dose Ordered Sig/Christopher Route PRN Reason Start Time Stop Time Status Last Admin Dose Admin Acetaminophen (Tylenol) 650 mg Q4H PRN GT Mild Pain/Temp > 101 10/13/18 04:30 11/11/18 04:29 10/14/18 05:38 Chlorhexidine Gluconate (Tatiana-Hex 2%) 1 applic DAILY@2000 TOPIC 10/13/18 20:00 11/12/18 19:59 10/13/18 20:23 Dextrose (Dextrose 50%) 25 ml Q30M PRN IV Hypoglycemia 10/13/18 03:30 11/11/18 04:29 Dextrose (Dextrose 50%) 50 ml Q30M PRN IV Hypoglycemia 10/13/18 03:30 11/11/18 04:29 Haloperidol Lactate (Haldol) 5 mg Q6H PRN IM Agitation 10/14/18 13:30 11/13/18 13:29 10/14/18 15:37 Heparin Sodium (Porcine) (Heparin 5000 units/ml) 5,000 units EVERY 12 HOURS SUBQ 10/13/18 21:00 11/12/18 20:59 10/13/18 20:57 Insulin Aspart (NovoLOG) EVERY 6 HOURS SUBQ 10/13/18 06:00 11/11/18 06:29 10/14/18 14:30 Meropenem 1 gm/ Sodium Chloride 55 ml @ 110 mls/hr Q12H IVPB 10/14/18 15:00 10/19/18 14:59 10/14/18 15:36 Norepinephrine Bitartrate 4 mg/ Dextrose 250 ml @ 0 mls/hr Q24H IV 10/13/18 09:00 11/12/18 08:59 10/13/18 14:21 Pantoprazole (Protonix) 40 mg DAILY IVP 10/14/18 09:00 11/13/18 08:59 10/14/18 10:11 Phenylephrine HCl 50 mg/Dextrose 250 ml @ 0 mls/hr Q24H IV 10/13/18 19:30 11/12/18 19:29 Potassium Chloride 30 meq/ Dextrose 1,015 ml @ 50 mls/hr [id number] IV 10/14/18 12:00 11/13/18 11:59 10/14/18 13:00 Sitagliptin Phosphate (Januvia) 100 mg ACBREAKFAST GT 10/13/18 06:30 11/11/18 06:29 10/14/18 07:38 Vancomycin HCl (Vanco rx to dose) 1 ea DAILY PRN MISC Per rx protocol 10/13/18 09:00 11/11/18 12:14 Vancomycin HCl 1 gm/Dextrose 275 ml @ 183.708 mls/hr Q24H IVPB 10/14/18 15:00 10/19/18 14:59 10/14/18 16:15 Allergies: Coded Allergies: No Known Allergies (Verified , 08/14/06) ROS Limited/Unobtainable: Yes Subjective 78 YO F admitted with pneumonia. Intubated and sedated. ICU. Cover for Int Med-Dr Toro. Diarrhea Objective Last Vital Signs Date Time Temp Pulse Resp B/P (MAP) Pulse Ox O2 Delivery O2 Flow Rate FiO2 10/14/18 16:31 107 26 35 10/14/18 16:00 Endotracheal Tube Mechanical Ventilator 10/14/18 09:00 113/45 10/14/18 06:08 100.4 10/14/18 06:00 99 10/12/18 20:00 5.0 5.0 Laboratory Tests Test 10/13/18 19:28 10/14/18 04:00 10/14/18 06:37 10/14/18 13:00 Magnesium Level 2.3 MG/DL (1.8-2.4) 2.2 MG/DL (1.8-2.4) Arterial Blood pH 7.435 (7.350-7.450) Arterial Blood Partial Pressure CO2 32.1 mmHg (35.0-45.0) L Arterial Blood Partial Pressure O2 81.6 mmHg (75.0-100.0) Arterial Blood HCO3 21.1 mmol/L (22.0-26.0) L Arterial Blood Oxygen Saturation 96.3 % (95-100) Arterial Blood Base Excess -2.6 (-2-2) L Khadar Test Positive White Blood Count 6.1 K/UL (4.8-10.8) Red Blood Count 2.70 M/UL (4.20-5.40) L Hemoglobin 8.1 G/DL (12.0-16.0) L Hematocrit 24.6 % (37.0-47.0) L Mean Corpuscular Volume 91 FL (80-99) Mean Corpuscular Hemoglobin 29.9 PG (27.0-31.0) Mean Corpuscular Hemoglobin Concent 32.8 G/DL (32.0-36.0) Red Cell Distribution Width 13.7 % (11.6-14.8) Platelet Count 118 K/UL (150-450) L Mean Platelet Volume 6.2 FL (6.5-10.1) L Neutrophils (%) (Auto) 78.6 % (45.0-75.0) H Lymphocytes (%) (Auto) 15.1 % (20.0-45.0) L Monocytes (%) (Auto) 5.5 % (1.0-10.0) Eosinophils (%) (Auto) 0.3 % (0.0-3.0) Basophils (%) (Auto) 0.5 % (0.0-2.0) Sodium Level 151 MMOL/L (136-145) H Potassium Level 2.7 MMOL/L (3.5-5.1) *L Chloride Level 119 MMOL/L (98-107) H Carbon Dioxide Level 22 MMOL/L (21-32) Anion Gap 10 mmol/L (5-15) Blood Urea Nitrogen 40 mg/dL (7-18) H Creatinine 1.2 MG/DL (0.55-1.30) Estimat Glomerular Filtration Rate mL/min (>60) Glucose Level 177 MG/DL (74-106) H Calcium Level 8.2 MG/DL (8.5-10.1) L Phosphorus Level 0.8 MG/DL (2.5-4.9) *L Total Bilirubin 0.4 MG/DL (0.2-1.0) Aspartate Amino Transf (AST/SGOT) 35 U/L (15-37) Alanine Aminotransferase (ALT/SGPT) 24 U/L (12-78) Alkaline Phosphatase 65 U/L (46-116) Troponin I 0.074 ng/mL (0.000-0.056) Pro-B-Type Natriuretic Peptide 5608 pg/mL (0-125) H Total Protein 5.2 G/DL (6.4-8.2) L Albumin 1.9 G/DL (3.4-5.0) L Globulin 3.3 g/dL Albumin/Globulin Ratio 0.6 (1.0-2.7) L Vancomycin Level Trough 9.4 ug/mL (5.0-12.0) Microbiology Date/Time Source Procedure Growth Status 10/11/18 19:23 Blood Blood Culture - Preliminary NO GROWTH AFTER 48 HOURS Resulted 10/11/18 19:20 Blood Blood Culture - Preliminary NO GROWTH AFTER 48 HOURS Resulted 10/11/18 23:00 Nasal Nares MRSA Culture - Final Staphylococcus Aureus - Mrsa Complete 10/11/18 19:23 Nasal Nares Influenza Types A,B Antigen (MAMIE) - Final Complete 10/11/18 23:20 Rectum - Final NO CARBAPENEM-RESISTANT ENTEROBACTERI... Complete 10/11/18 23:00 Rectum VRE Culture - Final Enterococcus Faecalis - Vre Complete Intake and Output 10/13/18 10/14/18 18:59 06:59 Intake Total 1743.4 ml 1692.5 ml Output Total 202 ml 811 ml Balance 1541.4 ml 881.5 ml Intake Free Water 90 ml IV Total 1463.4 ml 1182.5 ml Tube Feeding 280 ml 420 ml Output Urine Total 202 ml 810 ml Stool Total 1 ml # Voids 4 # Bowel Movements 2 Objective General Appearance: WD/WN, moderate distress, lethargic EENT: PERRL/EOMI, normal ENT inspection Neck: non-tender, normal alignment, supple Cardiovascular: normal peripheral pulses, normal rate, regular rhythm, no gallop/murmur, no JVD Respiratory/Chest: Mech Vent; respiratory distress, crackles/rales, rhonchi - bilaterally, expiratory wheezing Abdomen: normal bowel sounds, non tender, soft, no organomegaly, no mass 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 Diff and cult and sens Status: not improved Dimitrios Daly MD Oct 14, 2018 18:09
[2018-10-14] MEDS: Phenylephrine 50 MG in D5W 245 ML IV SCH (19:30)
--- NOTE | 2018-10-14 19:30 | NUR ---
NURSE NOTES:Received pt, appeared fatigue respond to pain stimuli ,exremities contracted, orally intubated on ac mode NSR on the monitor with some artifacts, Bp stable afebrile, Tolerated GT fdg at 35ml/hr. Suctined tk blood tinged secretions moderate in amt. 02 sat 98%. Hob kept elevated Watch for any resp distress. Roberts to gravity with moderate amt of april yellow urine. Monitor I and O. Monitor lytes. Caregiver at bedside. Updated with pts condition. Verbalized understanding.
--- NOTE | 2018-10-14 20:02 | Cardiology Progress Note ---
Assessment/Plan Assessment/Plan 1. Respiratory failure. 2. Bilateral pneumoniae. 3. History of cerebrovascular accident. 4. Azotemia and renal insufficiency. 5. Anemia. 6. Relative thrombocytopenia 7. tele artifact due to shaking ? related to cough?? had the typical shaking while i was examining her was having coughing spell iv abx pressor as needed vent support tele observation Subjective ROS Limited/Unobtainable: Yes Objective Last 24 Hour Vital Signs Date Time Temp Pulse Resp B/P (MAP) Pulse Ox O2 Delivery O2 Flow Rate FiO2 10/14/18 16:31 107 26 35 10/14/18 16:00 Endotracheal Tube Mechanical Ventilator 10/14/18 16:00 35 10/14/18 15:21 88 20 35 10/14/18 13:15 94 29 35 10/14/18 12:00 Endotracheal Tube Mechanical Ventilator 10/14/18 12:00 35 10/14/18 10:47 67 19 35 10/14/18 09:50 67 18 35 10/14/18 09:00 113/45 10/14/18 08:00 35 10/14/18 08:00 Endotracheal Tube Mechanical Ventilator 10/14/18 07:46 63 18 35 10/14/18 06:08 100.4 10/14/18 06:00 90 20 92/47 (62) 99 10/14/18 05:28 92 34 35 10/14/18 05:00 101.4 90 21 119/48 (71) 98 10/14/18 04:00 79 10/14/18 04:00 Endotracheal Tube Mechanical Ventilator 10/14/18 04:00 99.6 75 21 115/49 (71) 98 10/14/18 04:00 35 10/14/18 03:21 73 22 35 10/14/18 03:00 73 21 122/58 (79) 99 10/14/18 02:00 75 21 124/50 (74) 98 10/14/18 01:03 70 18 35 10/14/18 01:00 85 21 101/38 (59) 99 10/14/18 00:00 35 10/14/18 00:00 75 10/14/18 00:00 99.8 72 22 109/40 (63) 99 10/14/18 00:00 Endotracheal Tube Mechanical Ventilator 10/13/18 23:26 78 23 35 10/13/18 23:00 74 22 110/37 (61) 99 10/13/18 22:00 77 22 109/44 (65) 99 10/13/18 21:47 75 21 35 10/13/18 21:00 80 22 104/62 (76) 100 10/13/18 20:00 99.9 74 20 102/40 (60) 100 10/13/18 20:00 74 10/13/18 20:00 35 General Appearance: on vent, patient on isolation, other - deveklopped coughing spasms during myh visit and seem to have artifact on telel Neck: supple Cardiovascular: normal rate, regular rhythm Respiratory/Chest: lungs clear - anter Abdomen: normal bowel sounds, non tender, soft Extremities: no swelling Intake and Output 10/13/18 10/14/18 18:59 06:59 Intake Total 1743.4 ml 1692.5 ml Output Total 202 ml 811 ml Balance 1541.4 ml 881.5 ml Intake Free Water 90 ml IV Total 1463.4 ml 1182.5 ml Tube Feeding 280 ml 420 ml Output Urine Total 202 ml 810 ml Stool Total 1 ml # Voids 4 # Bowel Movements 2 Laboratory Tests Test 10/14/18 04:00 10/14/18 06:37 10/14/18 13:00 Arterial Blood pH 7.435 (7.350-7.450) Arterial Blood Partial Pressure CO2 32.1 mmHg (35.0-45.0) L Arterial Blood Partial Pressure O2 81.6 mmHg (75.0-100.0) Arterial Blood HCO3 21.1 mmol/L (22.0-26.0) L Arterial Blood Oxygen Saturation 96.3 % (95-100) Arterial Blood Base Excess -2.6 (-2-2) L Khadar Test Positive White Blood Count 6.1 K/UL (4.8-10.8) Red Blood Count 2.70 M/UL (4.20-5.40) L Hemoglobin 8.1 G/DL (12.0-16.0) L Hematocrit 24.6 % (37.0-47.0) L Mean Corpuscular Volume 91 FL (80-99) Mean Corpuscular Hemoglobin 29.9 PG (27.0-31.0) Mean Corpuscular Hemoglobin Concent 32.8 G/DL (32.0-36.0) Red Cell Distribution Width 13.7 % (11.6-14.8) Platelet Count 118 K/UL (150-450) L Mean Platelet Volume 6.2 FL (6.5-10.1) L Neutrophils (%) (Auto) 78.6 % (45.0-75.0) H Lymphocytes (%) (Auto) 15.1 % (20.0-45.0) L Monocytes (%) (Auto) 5.5 % (1.0-10.0) Eosinophils (%) (Auto) 0.3 % (0.0-3.0) Basophils (%) (Auto) 0.5 % (0.0-2.0) Sodium Level 151 MMOL/L (136-145) H Potassium Level 2.7 MMOL/L (3.5-5.1) *L Chloride Level 119 MMOL/L (98-107) H Carbon Dioxide Level 22 MMOL/L (21-32) Anion Gap 10 mmol/L (5-15) Blood Urea Nitrogen 40 mg/dL (7-18) H Creatinine 1.2 MG/DL (0.55-1.30) Estimat Glomerular Filtration Rate mL/min (>60) Glucose Level 177 MG/DL (74-106) H Calcium Level 8.2 MG/DL (8.5-10.1) L Phosphorus Level 0.8 MG/DL (2.5-4.9) *L Magnesium Level 2.2 MG/DL (1.8-2.4) Total Bilirubin 0.4 MG/DL (0.2-1.0) Aspartate Amino Transf (AST/SGOT) 35 U/L (15-37) Alanine Aminotransferase (ALT/SGPT) 24 U/L (12-78) Alkaline Phosphatase 65 U/L (46-116) Troponin I 0.074 ng/mL (0.000-0.056) Pro-B-Type Natriuretic Peptide 5608 pg/mL (0-125) H Total Protein 5.2 G/DL (6.4-8.2) L Albumin 1.9 G/DL (3.4-5.0) L Globulin 3.3 g/dL Albumin/Globulin Ratio 0.6 (1.0-2.7) L Vancomycin Level Trough 9.4 ug/mL (5.0-12.0) Microbiology Date/Time Source Procedure Growth Status 10/11/18 23:00 Nasal Nares MRSA Culture - Final Staphylococcus Aureus - Mrsa Complete 10/11/18 23:20 Rectum - Final NO CARBAPENEM-RESISTANT ENTEROBACTERI... Complete 10/11/18 23:00 Rectum VRE Culture - Final Enterococcus Faecalis - Vre Complete Huber Humphrey MD Oct 14, 2018 20:02
[2018-10-14] MEDS: Dyna-Hex 2% Top Sol 2oz TOPIC SCH (20:21)
--- NOTE | 2018-10-14 21:16 | NUR ---
NURSE NOTES:Heparin subcut ,on hold at this time due to pts constant bleeding in her mouth.
--- NOTE | 2018-10-14 22:00 | NUR ---
NURSE NOTES:Pt had lg soft bowel movement, cleaned up pt. Sent specimen for stool culture.
[2018-10-15] VITALS (24 sets, daily range): BP systolic 83–128; BP diastolic 34–71
--- NOTE | 2018-10-15 | NUR ---
NURSE NOTES:Turned q 2 hrs prn with good skin care done.
--- NOTE | 2018-10-15 02:00 | NUR ---
NURSE NOTES:Remained on NSR BP stable. Suctioned Tk blood tinged secretions lg in amt.
[2018-10-15] MEDS: Meropenem 1 GM in NS 55 ML IVPB SCH ×2 (02:40→14:44)
--- NOTE | 2018-10-15 04:00 | NUR ---
NURSE NOTES:Complete bath with bed changed done, Slightly febrile 100.2 cooling measures started.
[2018-10-15] MEDS: NovoLOG Insulin Flexpen SUBQ SCH ×4 (05:49→17:20)
--- NOTE | 2018-10-15 06:00 | NUR ---
NURSE NOTES:Accucheck 142mg/dl wit coverage. Pls see EMAR.
[2018-10-15 06:42] LABS: HEMATOCRIT 23.7 % (37.0-47.0); MEAN CORPUSCULAR VOLUME 90 FL (80-99); PLATELET COUNT 144 K/UL (150-450); RED BLOOD COUNT 2.63 M/UL (4.20-5.40); RED CELL DISTRIBUTION WIDTH 13.6 % (11.6-14.8); WHITE BLOOD COUNT 6.5 K/UL (4.8-10.8)
[2018-10-15 07:00] LABS: INR 1.1 (0.9-1.1)
[2018-10-15 07:23] LABS: ALANINE AMINOTRANSFERASE 22 U/L (12-78); ALBUMIN 1.8 G/DL (3.4-5.0); ALBUMIN/GLOBULIN RATIO 0.5 (1.0-2.7); ALKALINE PHOSPHATASE 75 U/L (46-116); ANION GAP 8 mmol/L (5-15); ASPARTATE AMINO TRANSFERASE 25 U/L (15-37); BILIRUBIN,TOTAL 0.3 MG/DL (0.2-1.0); BLOOD UREA NITROGEN 32 mg/dL (7-18); CALCIUM 7.9 MG/DL (8.5-10.1); CARBON DIOXIDE 23 MMOL/L (21-32); CHLORIDE 118 MMOL/L (98-107); CREATININE 1.1 MG/DL (0.55-1.30); PHOSPHORUS 1.8 MG/DL (2.5-4.9); POTASSIUM 3.3 MMOL/L (3.5-5.1); SODIUM 149 MMOL/L (136-145)
[2018-10-15 07:32] LABS: LACTATE DEHYDROGENASE 213 U/L (81-234)
--- NOTE | 2018-10-15 07:40 | NUR ---
NURSE NOTES: Report received from Smita Berger RN. Patient noted stuporous. No s/sx of distress. With patent and intact ETT size 7.0 at 21 cm lip level to mechanical ventilator with setting of AC 16, TV:450, FiO2:35%, PEEP:5 with oxygen saturation 98-99%. Oral care and suctioning done. Noted bloody secretions orally, also with lip lesions/sores, with guedel airway in place. SR on the monitor. With patent and intact Gtube, no residual noted with on going tube feeding of Glucerna 1.5 at 30 ml/hour. With patent and intact indwelling rodriguez catheter. With patent and intact right upper arm PICC line, able to draw blood with on going IVF of D5W with 30 mEq KCL at 50 ml/hour. With noted generalized swelling, bilateral upper and lower extremities, left periorbital edema noted. On SPR mattress, all extremities elevated with pillows, bed turning done. Placed bed on lowest position.
--- NOTE | 2018-10-15 07:40 | NUR ---
HAND-OFF: Report given to Emerita Kingston using SBAR.
--- NOTE | 2018-10-15 08:32 | NUR ---
RADIOLOGY DEPT CHEST X-RAY DONE.-P.D.
[2018-10-15 08:39] LABS: % IRON SATURATION 9 % (15-50); IRON 9 ug/dL (50-175); TOTAL IRON BINDING CAPACITY 97 ug/dL (250-450)
[2018-10-15] MEDS: Heparin 5000 units/ml inj SUBQ SCH (08:57)
[2018-10-15] MEDS: Pantoprazole Inj IVP SCH (08:57)
--- NOTE | 2018-10-15 09:12 | NUR ---
NURSE NOTES: Called Dr. Sky and made aware of HGB:8.0, HCT:23.7 noted trending low with report of oral bleeding. Also informed of serum potassium:3.3, phosphorus:1.8. Made aware of the ABG result while on AC 18, TV:450, FiO2:35%, PEEP:5 with current oxygen saturation:99%. ABG noted better result yesterday than today. Awaiting for further orders. Addendum: 10/15/18 at 0933 by Emerita Judd RN NURSE NOTES: MD was also made aware that patient is on Heparin, asked if MD would like to continue due to noted bleeding and trending low HGB.
--- NOTE | 2018-10-15 09:59 | Pulmonolgy Critical Care Note ---
Critical Care - Asmt/Plan Problems: (1) Acute respiratory failure (2) Healthcare-associated pneumonia (3) Sepsis (4) Diabetes mellitus type II, uncontrolled (5) Feeding by G-tube (6) Hemiparesis affecting left side as late effect of cerebrovascular accident Respiratory: monitor respiratory rate, adjust FIO2, CXR Cardiac: continue to monitor HR/BP Renal: F/U I&O, check electrolytes Infectious Disease: check cultures Gastrointestinal: continue feedings/current rate, hold feedings Endocrine: monitor blood sugar Hematologic: transfuse if hgb<8.5 Neurologic: PRN Morphine, keep patient comfortable Affect: PRN ativan Prophylaxis: Heparin Disposition: keep in ICU Notes Reviewed: body die maker, cardio, renal Discussed with: nurses, consultants, spring 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 process improvement - Objective Last 24 Hour Vital Signs Date Time Temp Pulse Resp B/P (MAP) Pulse Ox O2 Delivery O2 Flow Rate FiO2 10/15/18 09:17 76 29 35 10/15/18 09:00 66 21 103/71 (82) 99 10/15/18 08:57 94/36 10/15/18 08:00 66 10/15/18 08:00 65 21 94/36 (55) 99 10/15/18 07:00 99.5 63 20 95/34 (54) 99 10/15/18 06:51 60 18 35 10/15/18 06:00 72 22 101/41 (61) 99 10/15/18 05:17 67 23 35 10/15/18 05:00 67 23 100/41 (60) 99 10/15/18 04:00 99.8 79 24 103/39 (60) 99 10/15/18 04:00 76 10/15/18 04:00 35 10/15/18 04:00 Endotracheal Tube Mechanical Ventilator 10/15/18 03:21 71 23 35 10/15/18 03:00 78 26 116/41 (66) 99 10/15/18 02:00 65 19 119/40 (66) 97 10/15/18 01:21 62 18 35 10/15/18 01:00 63 19 113/47 (69) 97 10/15/18 00:00 70 10/15/18 00:00 98.4 67 19 83/34 (50) 97 10/15/18 00:00 35 10/15/18 00:00 Endotracheal Tube Mechanical Ventilator 10/14/18 23:16 82 25 35 10/14/18 23:00 123 27 121/48 (72) 96 10/14/18 22:00 72 19 93/36 (55) 99 10/14/18 21:24 131 25 35 10/14/18 21:00 72 19 124/43 (70) 99 10/14/18 20:00 35 10/14/18 20:00 Endotracheal Tube Mechanical Ventilator 10/14/18 20:00 98.8 70 21 102/44 (63) 100 10/14/18 20:00 69 10/14/18 19:56 86 27 35 10/14/18 19:30 90 114/46 10/14/18 18:00 94 26 114/46 (68) 96 10/14/18 17:00 80 24 93/35 (54) 96 10/14/18 16:31 107 26 35 10/14/18 16:00 Endotracheal Tube Mechanical Ventilator 10/14/18 16:00 99.0 94 25 118/48 (71) 96 10/14/18 16:00 166 10/14/18 16:00 35 10/14/18 15:21 88 20 35 10/14/18 15:00 91 27 115/42 (66) 98 10/14/18 14:00 113 27 129/53 (78) 98 10/14/18 13:15 94 29 35 10/14/18 13:00 104 29 125/49 (74) 95 10/14/18 12:00 98.6 80 24 107/48 (67) 95 10/14/18 12:00 Endotracheal Tube Mechanical Ventilator 10/14/18 12:00 71 10/14/18 12:00 35 10/14/18 11:00 72 21 106/43 (64) 98 10/14/18 10:47 67 19 35 10/14/18 10:00 75 21 105/43 (63) 98 Status: sedated Condition: critical HEENT: atraumatic Lungs: rales, rhonchi Heart: HR/BP stable Abdomen: soft, non-tender, feeding tube Extremities: edema Micro: Microbiology Date/Time Source Procedure Growth Status 10/14/18 05:00 Sputum Induced Gram Stain - Final Resulted 10/14/18 05:00 Sputum Induced Sputum Culture Pending Resulted 10/14/18 20:50 Stool Clostridium difficile Toxin Assay - Final Complete Accucheck: 142 Critical Care - Subjective ROS Limited/Unobtainable: Yes Interval Events: minimal bleeding from mouth FI02: 35 Vent Support Breath Rate: 18 Vent Support Mode: AC Vent Tidal Volume: 450 Sputum Amount: Small PEEP: 5.0 PIP: 26 Tube Feeding Amount: 35 I&O: Intake and Output 10/14/18 10/15/18 19:00 07:00 Intake Total 840.0 ml 1135 ml Output Total 119 ml 671 ml Balance 721.0 ml 464 ml Intake Free Water 60 ml IV Total 355.0 ml 655 ml Tube Feeding 385 ml 420 ml Other 100 ml Output Urine Total 119 ml 668 ml Stool Total 3 ml # Bowel Movements 4 CXR: no change ET-Tube: 7.0 ET Position: 21 Labs: Laboratory Tests Test 10/14/18 13:00 10/14/18 20:50 10/15/18 05:40 10/15/18 08:18 Vancomycin Level Trough 9.4 ug/mL (5.0-12.0) Stool Occult Blood Negative (NEGATIVE) White Blood Count 6.5 K/UL (4.8-10.8) Red Blood Count 2.63 M/UL (4.20-5.40) L Hemoglobin 8.0 G/DL (12.0-16.0) L Hematocrit 23.7 % (37.0-47.0) L Mean Corpuscular Volume 90 FL (80-99) Mean Corpuscular Hemoglobin 30.5 PG (27.0-31.0) Mean Corpuscular Hemoglobin Concent 33.8 G/DL (32.0-36.0) Red Cell Distribution Width 13.6 % (11.6-14.8) Platelet Count 144 K/UL (150-450) L Mean Platelet Volume 6.1 FL (6.5-10.1) L Neutrophils (%) (Auto) % (45.0-75.0) Lymphocytes (%) (Auto) % (20.0-45.0) Monocytes (%) (Auto) % (1.0-10.0) Eosinophils (%) (Auto) % (0.0-3.0) Basophils (%) (Auto) % (0.0-2.0) Neutrophils % (Manual) Pending Lymphocytes % (Manual) Pending Platelet Estimate Pending Platelet Morphology Pending Erythrocyte Sedimentation Rate Pending Reticulocyte Count Pending Prothrombin Time 11.4 SEC (9.30-11.50) Prothromb Time International Ratio 1.1 (0.9-1.1) Activated Partial Thromboplast Time 28 SEC (23-33) Sodium Level 149 MMOL/L (136-145) H Potassium Level 3.3 MMOL/L (3.5-5.1) L Chloride Level 118 MMOL/L (98-107) H Carbon Dioxide Level 23 MMOL/L (21-32) Anion Gap 8 mmol/L (5-15) Blood Urea Nitrogen 32 mg/dL (7-18) H Creatinine 1.1 MG/DL (0.55-1.30) Estimat Glomerular Filtration Rate mL/min (>60) Glucose Level 134 MG/DL (74-106) H Calcium Level 7.9 MG/DL (8.5-10.1) L Phosphorus Level 1.8 MG/DL (2.5-4.9) L Magnesium Level 2.2 MG/DL (1.8-2.4) Iron Level 9 ug/dL (50-175) L Total Iron Binding Capacity 97 ug/dL (250-450) L Percent Iron Saturation 9 % (15-50) L Unsaturated Iron Binding 88 ug/dL (112-346) L Total Bilirubin 0.3 MG/DL (0.2-1.0) Aspartate Amino Transf (AST/SGOT) 25 U/L (15-37) Alanine Aminotransferase (ALT/SGPT) 22 U/L (12-78) Alkaline Phosphatase 75 U/L (46-116) Lactate Dehydrogenase 213 U/L (81-234) Total Protein 5.3 G/DL (6.4-8.2) L Albumin 1.8 G/DL (3.4-5.0) L Globulin 3.5 g/dL Albumin/Globulin Ratio 0.5 (1.0-2.7) L Carcinoembryonic Antigen Pending Vitamin B12 Level 1968 PG/ML (193-986) H Folate 27.4 NG/ML (8.6-58.9) Arterial Blood pH 7.461 (7.350-7.450) Arterial Blood Partial Pressure CO2 28.3 mmHg (35.0-45.0) L Arterial Blood Partial Pressure O2 67.1 mmHg (75.0-100.0) L Arterial Blood HCO3 19.7 mmol/L (22.0-26.0) L Arterial Blood Oxygen Saturation 94.5 % (95-100) L Arterial Blood Base Excess -3.3 (-2-2) L Khadar Test Positive Barbara Sky MD Oct 15, 2018 09:59
[2018-10-15] MEDS ORDERED: Potassium Chloride 40 MEQ in Sodium Chloride 500ML 550 ML IVPB ONE (10:00)
--- NOTE | 2018-10-15 10:00 | NUR ---
NURSE NOTES: Resting comfortably in bed. No s/sx of distress. With oxygen saturation of 99% on current ventilator setting. Still off of pressors. Temperature improved. Repositioning done.
--- NOTE | 2018-10-15 10:42 | NUR ---
RD ASSESSMENT & RECOMMENDATIONS SEE CARE ACTIVITY FOR COMPLETE ASSESSMENT DAILY ESTIMATED NEEDS: Needs based on DM, critical care, suspected wound, sepsis 55.5kg 22-30 kcals/kg 9686-2769 total kcals 1.25-2 g protein/kg 69-111 g total protein 25-30 mL/kg 7082-8365 total fluid mLs NUTRITION DIAGNOSIS: 1) Swallowing difficulty R/T dysphagia as evidenced by pt on GT feeding 2) Increased kcal/pro/micronutrients needs R/T wound healing as evidenced by pt admitted w/sacral wound, pending eval. CURRENT TF: Glucerna 1.5 @ 35ml/hr x 24 hrs ENTERAL NUTRITION RECOMMENDATIONS: Glucerna 1.5 @ 40ml/hr x 24 hrs to provide 960ml, 1440kcal, 79g pro, 729ml free water -Rec INCREASE Glucerna 1.5 to goal of 40ml/hr to better meet est needs -HOB over 30 degrees, flush per MD ADDITIONAL RECOMMENDATIONS: * Add JO-ANN BID for skin integrity/ f/up w/ WC eval * RE-calibrate bed scale for accurate CBW -> conflicting wts- Adm wt: 114#, EMR wt: 125#, Bed wt: 133# * FEED TO GOAL W/ HEMODYNAMIC STABILITY ONLY -> W/ high dose pressors, rec trophic feeds of 5-10ml/hr * Lytes daily, replete as needed
--- NOTE | 2018-10-15 12:00 | NUR ---
NURSE NOTES: Patient SR on the monitor. No s/sx of distress with oxygen saturation of 99% on current ventilator setting. Oral care and suctioning done. Still with bloody secretions. Family at bedside.
--- NOTE | 2018-10-15 12:40 | NUR ---
NURSE NOTES: Patient still noted with oral bleeding especially when cleaning mouth or suctioning. Gentle suctioning done. Still with lip sores that are minimally bleeding too. Called and spoke with Dr. Sky with order to discontinue Heparin at this time.
[2018-10-15] MEDS ORDERED: Sodium Phosphate 30 MM in NS 275 ML IV SCH (13:00)
--- NOTE | 2018-10-15 14:00 | NUR ---
NURSE NOTES: Patient resting comfortably, family at bedside. SR on the monitor. Repositioning done. With oxygen saturation of 99% on current ventilator setting.
[2018-10-15] MEDS: Vancomycin 1gm/D5W 275ml IVPB SCH ×2 (14:45)
[2018-10-15] MEDS ORDERED: NS 275ml ONE ×2 (14:57→20:14)
[2018-10-15] MEDS ORDERED: Etomidate 40mg/20ml Inj IV ONE (15:57)
[2018-10-15] MEDS ORDERED: Succinylcholine 20mg/ml 10ml vial ONE (15:57)
[2018-10-15] MEDS ORDERED: Zemuron 50mg/5ml Inj IV ONE (15:57)
--- NOTE | 2018-10-15 16:00 | NUR ---
NURSE NOTES: Resting comfortably. No s/sx of pain. SR on monitor. Still off of pressors. SBP 90s. Family at the bedside. Sponge bath given, BM noted, soft to formed, brown in color. Oral care and suctioning done. Improvement on oral bleeding noted.
--- NOTE | 2018-10-15 16:18 | Infectious Diseases Prog Note ---
Assessment/Plan Problems: (1) Aspiration pneumonia Assessment & Plan: with significant secretions and fever , continue vancomycin and meropenem empirically pending sputum culture , aspiration precaution with aggressive suctioning , keep HOB > 30 degree .monitor CXR (2) Sepsis Assessment & Plan: due to the above , on wide spectrum antibiotics , await repeated blood culture (3) Acute respiratory failure Assessment & Plan: due to the above , intubated on mechanical ventilation , monitor CXR and ABG (4) Hypotension Assessment & Plan: suspect due to sepsis , continue antibiotics and hydration (5) Diabetes mellitus type II, uncontrolled Assessment & Plan: recommend tight glycemic control to keep blood glucose between 100-140 (6) JEFFY (acute kidney injury) Assessment & Plan: due to hypotension and sepsis, continue hydration, monitor renal function, and UOP Subjective ROS Limited/Unobtainable: Yes Allergies: Coded Allergies: No Known Allergies (Verified , 08/14/06) Subjective she was still intubated and on mechanical ventilation , in ICU , for close monitoring , had low grade fever . no diarrhea or significant secretions Objective Vital Signs Last 24 Hour Vital Signs Date Time Temp Pulse Resp B/P (MAP) Pulse Ox O2 Delivery O2 Flow Rate FiO2 10/15/18 15:00 65 21 106/46 (66) 99 10/15/18 14:51 64 19 35 10/15/18 14:00 69 21 117/48 (71) 99 10/15/18 13:00 70 21 94/38 (56) 99 10/15/18 12:58 83 32 35 10/15/18 12:00 35 10/15/18 12:00 98.9 89 20 128/47 (74) 98 10/15/18 12:00 Endotracheal Tube Mechanical Ventilator 10/15/18 11:00 66 21 107/40 (62) 99 10/15/18 10:51 62 19 35 10/15/18 10:00 64 21 109/39 (62) 99 10/15/18 09:17 76 29 35 10/15/18 09:00 66 21 103/71 (82) 99 10/15/18 08:57 94/36 10/15/18 08:00 66 10/15/18 08:00 35 10/15/18 08:00 Endotracheal Tube Mechanical Ventilator 10/15/18 08:00 65 21 94/36 (55) 99 10/15/18 07:00 99.5 63 20 95/34 (54) 99 10/15/18 06:51 60 18 35 10/15/18 06:00 72 22 101/41 (61) 99 10/15/18 05:17 67 23 35 10/15/18 05:00 67 23 100/41 (60) 99 10/15/18 04:00 99.8 79 24 103/39 (60) 99 10/15/18 04:00 76 10/15/18 04:00 35 10/15/18 04:00 Endotracheal Tube Mechanical Ventilator 10/15/18 03:21 71 23 35 10/15/18 03:00 78 26 116/41 (66) 99 10/15/18 02:00 65 19 119/40 (66) 97 10/15/18 01:21 62 18 35 10/15/18 01:00 63 19 113/47 (69) 97 10/15/18 00:00 70 10/15/18 00:00 98.4 67 19 83/34 (50) 97 10/15/18 00:00 35 10/15/18 00:00 Endotracheal Tube Mechanical Ventilator 10/14/18 23:16 82 25 35 10/14/18 23:00 123 27 121/48 (72) 96 10/14/18 22:00 72 19 93/36 (55) 99 10/14/18 21:24 131 25 35 10/14/18 21:00 72 19 124/43 (70) 99 10/14/18 20:00 35 10/14/18 20:00 Endotracheal Tube Mechanical Ventilator 10/14/18 20:00 98.8 70 21 102/44 (63) 100 10/14/18 20:00 69 10/14/18 19:56 86 27 35 10/14/18 19:30 90 114/46 10/14/18 18:00 94 26 114/46 (68) 96 10/14/18 17:00 80 24 93/35 (54) 96 10/14/18 16:31 107 26 35 Height (Feet): 5 Height (Inches): 4.00 Weight (Pounds): 125 General Appearance: WD/WN, no acute distress HEENT: normocephalic, atraumatic, supple, no JVD, other - tounge with wound and dry blood Respiratory/Chest: chest wall non-tender, lungs clear, normal breath sounds, no respiratory distress, no accessory muscle use Cardiovascular: normal peripheral pulses, normal rate, regular rhythm, no gallop/murmur, no JVD Abdomen: normal bowel sounds, soft, non tender, no organomegaly, non distended , no mass, no scars Extremities: no cyanosis, no clubbing Skin: no rash, no lesions, no ulcers Neurologic/Psychiatric: alert, oriented x 3, responsive Lymphatic: no neck adenopathy, no groin adenopathy Musculoskeletal: normal muscle bulk, no effusion Microbiology Date/Time Source Procedure Growth Status 10/14/18 05:00 Sputum Induced Gram Stain - Final Resulted 10/14/18 05:00 Sputum Induced Sputum Culture Pending Resulted 10/14/18 20:50 Stool Clostridium difficile Toxin Assay - Final Complete Laboratory Tests Test 10/14/18 20:50 10/15/18 05:40 10/15/18 08:18 Stool Occult Blood Negative (NEGATIVE) White Blood Count 6.5 K/UL (4.8-10.8) Red Blood Count 2.63 M/UL (4.20-5.40) L Hemoglobin 8.0 G/DL (12.0-16.0) L Hematocrit 23.7 % (37.0-47.0) L Mean Corpuscular Volume 90 FL (80-99) Mean Corpuscular Hemoglobin 30.5 PG (27.0-31.0) Mean Corpuscular Hemoglobin Concent 33.8 G/DL (32.0-36.0) Red Cell Distribution Width 13.6 % (11.6-14.8) Platelet Count 144 K/UL (150-450) L Mean Platelet Volume 6.1 FL (6.5-10.1) L Neutrophils (%) (Auto) % (45.0-75.0) Lymphocytes (%) (Auto) % (20.0-45.0) Monocytes (%) (Auto) % (1.0-10.0) Eosinophils (%) (Auto) % (0.0-3.0) Basophils (%) (Auto) % (0.0-2.0) Differential Total Cells Counted 100 Neutrophils % (Manual) 62 % (45-75) Lymphocytes % (Manual) 24 % (20-45) Monocytes % (Manual) 3 % (1-10) Eosinophils % (Manual) 1 % (0-3) Basophils % (Manual) 1 % (0-2) Myelocytes % 3 % (0-0) H Band Neutrophils 6 % (0-8) Platelet Estimate Decreased L Platelet Morphology Normal Red Blood Cell Morphology Normal Erythrocyte Sedimentation Rate 88 MM/HR (0-30) H Reticulocyte Count 0.2 % (0.0-2.0) Prothrombin Time 11.4 SEC (9.30-11.50) Prothromb Time International Ratio 1.1 (0.9-1.1) Activated Partial Thromboplast Time 28 SEC (23-33) Sodium Level 149 MMOL/L (136-145) H Potassium Level 3.3 MMOL/L (3.5-5.1) L Chloride Level 118 MMOL/L (98-107) H Carbon Dioxide Level 23 MMOL/L (21-32) Anion Gap 8 mmol/L (5-15) Blood Urea Nitrogen 32 mg/dL (7-18) H Creatinine 1.1 MG/DL (0.55-1.30) Estimat Glomerular Filtration Rate mL/min (>60) Glucose Level 134 MG/DL (74-106) H Calcium Level 7.9 MG/DL (8.5-10.1) L Phosphorus Level 1.8 MG/DL (2.5-4.9) L Magnesium Level 2.2 MG/DL (1.8-2.4) Iron Level 9 ug/dL (50-175) L Total Iron Binding Capacity 97 ug/dL (250-450) L Percent Iron Saturation 9 % (15-50) L Unsaturated Iron Binding 88 ug/dL (112-346) L Total Bilirubin 0.3 MG/DL (0.2-1.0) Aspartate Amino Transf (AST/SGOT) 25 U/L (15-37) Alanine Aminotransferase (ALT/SGPT) 22 U/L (12-78) Alkaline Phosphatase 75 U/L (46-116) Lactate Dehydrogenase 213 U/L (81-234) Total Protein 5.3 G/DL (6.4-8.2) L Albumin 1.8 G/DL (3.4-5.0) L Globulin 3.5 g/dL Albumin/Globulin Ratio 0.5 (1.0-2.7) L Carcinoembryonic Antigen Pending Vitamin B12 Level 1968 PG/ML (193-986) H Folate 27.4 NG/ML (8.6-58.9) Arterial Blood pH 7.461 (7.350-7.450) Arterial Blood Partial Pressure CO2 28.3 mmHg (35.0-45.0) L Arterial Blood Partial Pressure O2 67.1 mmHg (75.0-100.0) L Arterial Blood HCO3 19.7 mmol/L (22.0-26.0) L Arterial Blood Oxygen Saturation 94.5 % (95-100) L Arterial Blood Base Excess -3.3 (-2-2) L Khadar Test Positive Current Medications Medications (Trade) Dose Ordered Sig/Christopher Route PRN Reason Start Time Stop Time Status Last Admin Dose Admin Acetaminophen (Tylenol) 650 mg Q4H PRN GT Mild Pain/Temp > 101 10/13/18 04:30 11/11/18 04:29 10/14/18 05:38 Chlorhexidine Gluconate (Tatiana-Hex 2%) 1 applic DAILY@2000 TOPIC 10/13/18 20:00 11/12/18 19:59 10/14/18 20:21 Dextrose (Dextrose 50%) 25 ml Q30M PRN IV Hypoglycemia 10/13/18 03:30 11/11/18 04:29 Dextrose (Dextrose 50%) 50 ml Q30M PRN IV Hypoglycemia 10/13/18 03:30 11/11/18 04:29 Haloperidol Lactate (Haldol) 5 mg Q6H PRN IM Agitation 10/14/18 13:30 11/13/18 13:29 10/14/18 15:37 Insulin Aspart (NovoLOG) EVERY 6 HOURS SUBQ 10/13/18 06:00 11/11/18 06:29 10/15/18 12:22 Meropenem 1 gm/ Sodium Chloride 55 ml @ 110 mls/hr Q12H IVPB 10/14/18 15:00 10/19/18 14:59 10/15/18 14:44 Norepinephrine Bitartrate 4 mg/ Dextrose 250 ml @ 0 mls/hr Q24H IV 10/13/18 09:00 11/12/18 08:59 10/13/18 14:21 Pantoprazole (Protonix) 40 mg DAILY IVP 10/14/18 09:00 11/13/18 08:59 10/15/18 08:57 Phenylephrine HCl 50 mg/Dextrose 250 ml @ 0 mls/hr Q24H IV 10/13/18 19:30 11/12/18 19:29 Potassium Chloride 30 meq/ Dextrose 1,015 ml @ 50 mls/hr [id number] IV 10/14/18 12:00 11/13/18 11:59 10/15/18 08:57 Sitagliptin Phosphate (Januvia) 100 mg ACBREAKFAST GT 10/13/18 06:30 11/11/18 06:29 10/15/18 06:04 Sodium Phosphate 30 mm/Sodium Chloride 285 ml @ 47.5 mls/hr ONCE IV 10/15/18 13:00 10/15/18 18:59 10/15/18 12:23 Vancomycin HCl (Vanco rx to dose) 1 ea DAILY PRN MISC Per rx protocol 10/13/18 09:00 11/11/18 12:14 Vancomycin HCl 1 gm/Dextrose 275 ml @ 183.708 mls/hr Q24H IVPB 10/14/18 15:00 10/19/18 14:59 10/15/18 14:45 Porfirio Valentine M.D. Oct 15, 2018 16:18
[2018-10-15] MEDS ORDERED: NS 500ML ONE (16:50)
[2018-10-15] MEDS ORDERED: D5NS 1000ml IV ONE ×2 (16:50→20:14)
[2018-10-15] MEDS ORDERED: Tubing IV Secondary IV ONE ×2 (16:50→20:14)
[2018-10-15] MEDS ORDERED: Tubing Blood Filter IV ONE (16:50)
--- NOTE | 2018-10-15 17:43 | NUR ---
CASE MANAGEMENT: REVIEW SI: SEPSIS . PNA T 98.9 HR 89 RR 32 BP 83/34 SAT 97% MECH VENT FIO2 35 H/H 8.0/23.7 NA 149 K 3.3 BUN 32 IS: PROTONIX IV QD HEPARIN SQ Q12HR VANCO IV Q24HR DOXYCYCLINE IV Q12HR ASA GT QD LEVOPHED IV Q24HR ICU STATUS DCP: PATIENT IS FROM [facility]
--- NOTE | 2018-10-15 17:46 | NUR ---
CASE MANAGEMENT: DCPNOTE PER MD ORDER PATIENT REFERRED TO [facility] [phone] PH / [phone] FAX PATIENT NOT ON BED LIST . MADE AWARE . NO BED AVAIL AT THIS TIME. CM WILL FOLLOW UP
--- NOTE | 2018-10-15 18:00 | NUR ---
NURSE NOTES: Seen on rounds by Dr. Daly and has spoke with blanca Diaz and blanca agreed to keep patient here at this time.
--- NOTE | 2018-10-15 18:05 | Internal Med Progress Note ---
Subjective Date of Service: Oct 15, 2018 Physician Name Dimitrios Daly Attending Physician Tereso Toro MD Current Medications Medications (Trade) Dose Ordered Sig/Christopher Route PRN Reason Start Time Stop Time Status Last Admin Dose Admin Acetaminophen (Tylenol) 650 mg Q4H PRN GT Mild Pain/Temp > 101 10/13/18 04:30 11/11/18 04:29 10/14/18 05:38 Chlorhexidine Gluconate (Tatiana-Hex 2%) 1 applic DAILY@2000 TOPIC 10/13/18 20:00 11/12/18 19:59 10/14/18 20:21 Dextrose (Dextrose 50%) 25 ml Q30M PRN IV Hypoglycemia 10/13/18 03:30 11/11/18 04:29 Dextrose (Dextrose 50%) 50 ml Q30M PRN IV Hypoglycemia 10/13/18 03:30 11/11/18 04:29 Haloperidol Lactate (Haldol) 5 mg Q6H PRN IM Agitation 10/14/18 13:30 11/13/18 13:29 10/14/18 15:37 Insulin Aspart (NovoLOG) EVERY 6 HOURS SUBQ 10/13/18 06:00 11/11/18 06:29 10/15/18 17:20 Meropenem 1 gm/ Sodium Chloride 55 ml @ 110 mls/hr Q12H IVPB 10/14/18 15:00 10/19/18 14:59 10/15/18 14:44 Norepinephrine Bitartrate 4 mg/ Dextrose 250 ml @ 0 mls/hr Q24H IV 10/13/18 09:00 11/12/18 08:59 10/13/18 14:21 Pantoprazole (Protonix) 40 mg DAILY IVP 10/14/18 09:00 11/13/18 08:59 10/15/18 08:57 Phenylephrine HCl 50 mg/Dextrose 250 ml @ 0 mls/hr Q24H IV 10/13/18 19:30 11/12/18 19:29 Potassium Chloride 30 meq/ Dextrose 1,015 ml @ 50 mls/hr [id number] IV 10/14/18 12:00 11/13/18 11:59 10/15/18 08:57 Sitagliptin Phosphate (Januvia) 100 mg ACBREAKFAST GT 10/13/18 06:30 11/11/18 06:29 10/15/18 06:04 Sodium Phosphate 30 mm/Sodium Chloride 285 ml @ 47.5 mls/hr ONCE IV 10/15/18 13:00 10/15/18 18:59 10/15/18 12:23 Vancomycin HCl (Vanco rx to dose) 1 ea DAILY PRN MISC Per rx protocol 10/13/18 09:00 11/11/18 12:14 Vancomycin HCl 1 gm/Dextrose 275 ml @ 183.708 mls/hr Q24H IVPB 10/14/18 15:00 10/19/18 14:59 10/15/18 14:45 Allergies: Coded Allergies: No Known Allergies (Verified , 08/14/06) Subjective 78 YO F admitted with pneumonia. Now sepsis and hypotension. Intubated and sedated. ICU. Cover for Int Med-Dr Toro. Objective Last Vital Signs Date Time Temp Pulse Resp B/P (MAP) Pulse Ox O2 Delivery O2 Flow Rate FiO2 10/15/18 17:14 63 21 35 10/15/18 17:00 96/38 (57) 99 10/15/18 16:00 Endotracheal Tube Mechanical Ventilator 10/15/18 12:00 98.9 10/12/18 20:00 5.0 5.0 Laboratory Tests Test 10/14/18 20:50 10/15/18 05:40 10/15/18 08:18 Stool Occult Blood Negative (NEGATIVE) White Blood Count 6.5 K/UL (4.8-10.8) Red Blood Count 2.63 M/UL (4.20-5.40) L Hemoglobin 8.0 G/DL (12.0-16.0) L Hematocrit 23.7 % (37.0-47.0) L Mean Corpuscular Volume 90 FL (80-99) Mean Corpuscular Hemoglobin 30.5 PG (27.0-31.0) Mean Corpuscular Hemoglobin Concent 33.8 G/DL (32.0-36.0) Red Cell Distribution Width 13.6 % (11.6-14.8) Platelet Count 144 K/UL (150-450) L Mean Platelet Volume 6.1 FL (6.5-10.1) L Neutrophils (%) (Auto) % (45.0-75.0) Lymphocytes (%) (Auto) % (20.0-45.0) Monocytes (%) (Auto) % (1.0-10.0) Eosinophils (%) (Auto) % (0.0-3.0) Basophils (%) (Auto) % (0.0-2.0) Differential Total Cells Counted 100 Neutrophils % (Manual) 62 % (45-75) Lymphocytes % (Manual) 24 % (20-45) Monocytes % (Manual) 3 % (1-10) Eosinophils % (Manual) 1 % (0-3) Basophils % (Manual) 1 % (0-2) Myelocytes % 3 % (0-0) H Band Neutrophils 6 % (0-8) Platelet Estimate Decreased L Platelet Morphology Normal Red Blood Cell Morphology Normal Erythrocyte Sedimentation Rate 88 MM/HR (0-30) H Reticulocyte Count 0.2 % (0.0-2.0) Prothrombin Time 11.4 SEC (9.30-11.50) Prothromb Time International Ratio 1.1 (0.9-1.1) Activated Partial Thromboplast Time 28 SEC (23-33) Sodium Level 149 MMOL/L (136-145) H Potassium Level 3.3 MMOL/L (3.5-5.1) L Chloride Level 118 MMOL/L (98-107) H Carbon Dioxide Level 23 MMOL/L (21-32) Anion Gap 8 mmol/L (5-15) Blood Urea Nitrogen 32 mg/dL (7-18) H Creatinine 1.1 MG/DL (0.55-1.30) Estimat Glomerular Filtration Rate mL/min (>60) Glucose Level 134 MG/DL (74-106) H Calcium Level 7.9 MG/DL (8.5-10.1) L Phosphorus Level 1.8 MG/DL (2.5-4.9) L Magnesium Level 2.2 MG/DL (1.8-2.4) Iron Level 9 ug/dL (50-175) L Total Iron Binding Capacity 97 ug/dL (250-450) L Percent Iron Saturation 9 % (15-50) L Unsaturated Iron Binding 88 ug/dL (112-346) L Total Bilirubin 0.3 MG/DL (0.2-1.0) Aspartate Amino Transf (AST/SGOT) 25 U/L (15-37) Alanine Aminotransferase (ALT/SGPT) 22 U/L (12-78) Alkaline Phosphatase 75 U/L (46-116) Lactate Dehydrogenase 213 U/L (81-234) Total Protein 5.3 G/DL (6.4-8.2) L Albumin 1.8 G/DL (3.4-5.0) L Globulin 3.5 g/dL Albumin/Globulin Ratio 0.5 (1.0-2.7) L Carcinoembryonic Antigen Pending Vitamin B12 Level 1968 PG/ML (193-986) H Folate 27.4 NG/ML (8.6-58.9) Arterial Blood pH 7.461 (7.350-7.450) Arterial Blood Partial Pressure CO2 28.3 mmHg (35.0-45.0) L Arterial Blood Partial Pressure O2 67.1 mmHg (75.0-100.0) L Arterial Blood HCO3 19.7 mmol/L (22.0-26.0) L Arterial Blood Oxygen Saturation 94.5 % (95-100) L Arterial Blood Base Excess -3.3 (-2-2) L Khadar Test Positive Microbiology Date/Time Source Procedure Growth Status 10/14/18 05:00 Sputum Induced Gram Stain - Final Resulted 10/14/18 05:00 Sputum Induced Sputum Culture Pending Resulted 10/14/18 20:50 Stool Clostridium difficile Toxin Assay - Final Complete Intake and Output 10/14/18 10/15/18 18:59 06:59 Intake Total 1102.5 ml 1050 ml Output Total 169 ml 611 ml Balance 933.5 ml 439 ml Intake Free Water 60 ml IV Total 582.5 ml 605 ml Tube Feeding 420 ml 385 ml Other 100 ml Output Urine Total 169 ml 608 ml Stool Total 3 ml # Bowel Movements 4 Objective General Appearance: WD/WN, moderate distress, lethargic EENT: PERRL/EOMI, normal ENT inspection Neck: non-tender, normal alignment, supple Cardiovascular: normal peripheral pulses, normal rate, regular rhythm, no gallop/murmur, no JVD Respiratory/Chest: Mech Vent; respiratory distress, crackles/rales, rhonchi - bilaterally, expiratory wheezing Abdomen: normal bowel sounds, non tender, soft, no organomegaly, no mass Neurologic: product operations associate II-XII grossly normal Skin: normal pigmentation, warm/dry Assessment/Plan Problem List: (1) COPD (chronic obstructive pulmonary disease) (2) Cerebral vascular disease (3) Acute respiratory failure Assessment & Plan: Mech Vent per pulmonary (4) Sepsis (5) Diabetes mellitus type II, uncontrolled (6) HTN (hypertension) (7) Hemiparesis affecting left side as late effect of cerebrovascular accident (8) Healthcare-associated pneumonia Assessment & Plan: Continue vanco and Meropenem per ID (9) Hypotension Assessment & Plan: due to sepsis; continue levophed (10) Sepsis (11) Diarrhea Assessment & Plan: stool for C. Diff and cult and sens (12) Elevated troponin Assessment & Plan: See cardiology note. (13) CHF (congestive heart failure) Status: not improved Assessment/Plan Discussed with Emily rios via telephone. Dimitrios Daly MD Oct 15, 2018 18:05
--- NOTE | 2018-10-15 19:19 | NUR ---
HAND-OFF: Report given to Smita Berger RN. Endorsed that patient remained SR, off of pressors. Informed that Dr. Daly spoke with blanca Diaz and blanca agreed to keep pt here at this time. Family has request transfer to [facility] yesterday.
[2018-10-15] MEDS: Phenylephrine 50 MG in D5W 245 ML IV SCH (19:30)
--- NOTE | 2018-10-15 19:30 | NUR ---
NURSE NOTES:Received pt lethargic but arousble to tactile stimulation. Orally intubated on AC mode, suctioned blood tinged secretions moderate in amt. 02 sat>92%.HOB kept elevated. Watch for any resp. distress.SR on the monitor, Bp stable. Afebrile. Will continue to monitor.
[2018-10-15] MEDS: Dyna-Hex 2% Top Sol 2oz TOPIC SCH (20:18)
--- NOTE | 2018-10-15 22:00 | NUR ---
NURSE NOTES:Pt had lg soft brownish bowel movement, cleaned up pt.
--- NOTE | 2018-10-15 22:39 | General Progress Note ---
Assessment/Plan Problem List: (1) Toxic encephalopathy ICD Codes: G92 - Toxic encephalopathy SNOMED: [id number] Status: stable Assessment/Plan Haldol 5mg Im q6hr prn/agitation dw RN Subjective Allergies: Coded Allergies: No Known Allergies (Verified , 08/14/06) Subjective the pt is more manageable and less agitated Objective Last 24 Hour Vital Signs Date Time Temp Pulse Resp B/P (MAP) Pulse Ox O2 Delivery O2 Flow Rate FiO2 10/15/18 20:40 94 27 35 10/15/18 19:15 87 32 35 10/15/18 19:00 58 21 94/36 (55) 98 10/15/18 18:00 60 21 106/40 (62) 99 10/15/18 17:14 63 21 35 10/15/18 17:00 60 21 96/38 (57) 99 10/15/18 16:00 Endotracheal Tube Mechanical Ventilator 10/15/18 16:00 99.0 10/15/18 16:00 66 10/15/18 16:00 35 10/15/18 16:00 66 21 109/48 (68) 99 10/15/18 15:00 65 21 106/46 (66) 99 10/15/18 14:51 64 19 35 10/15/18 14:00 69 21 117/48 (71) 99 10/15/18 13:00 70 21 94/38 (56) 99 10/15/18 12:58 83 32 35 10/15/18 12:00 35 10/15/18 12:00 98.9 89 20 128/47 (74) 98 10/15/18 12:00 62 10/15/18 12:00 Endotracheal Tube Mechanical Ventilator 10/15/18 11:00 66 21 107/40 (62) 99 10/15/18 10:51 62 19 35 10/15/18 10:00 64 21 109/39 (62) 99 10/15/18 09:17 76 29 35 10/15/18 09:00 66 21 103/71 (82) 99 10/15/18 08:57 94/36 10/15/18 08:00 66 10/15/18 08:00 35 10/15/18 08:00 Endotracheal Tube Mechanical Ventilator 10/15/18 08:00 65 21 94/36 (55) 99 10/15/18 07:00 99.5 63 20 95/34 (54) 99 10/15/18 06:51 60 18 35 10/15/18 06:00 72 22 101/41 (61) 99 10/15/18 05:17 67 23 35 10/15/18 05:00 67 23 100/41 (60) 99 10/15/18 04:00 99.8 79 24 103/39 (60) 99 10/15/18 04:00 76 10/15/18 04:00 35 10/15/18 04:00 Endotracheal Tube Mechanical Ventilator 10/15/18 03:21 71 23 35 10/15/18 03:00 78 26 116/41 (66) 99 10/15/18 02:00 65 19 119/40 (66) 97 10/15/18 01:21 62 18 35 10/15/18 01:00 63 19 113/47 (69) 97 10/15/18 00:00 70 10/15/18 00:00 98.4 67 19 83/34 (50) 97 10/15/18 00:00 35 10/15/18 00:00 Endotracheal Tube Mechanical Ventilator 10/14/18 23:16 82 25 35 10/14/18 23:00 123 27 121/48 (72) 96 Intake and Output 10/14/18 10/15/18 18:59 06:59 Intake Total 1102.5 ml 1050 ml Output Total 169 ml 611 ml Balance 933.5 ml 439 ml Intake Free Water 60 ml IV Total 582.5 ml 605 ml Tube Feeding 420 ml 385 ml Other 100 ml Output Urine Total 169 ml 608 ml Stool Total 3 ml # Bowel Movements 4 Laboratory Tests 10/15/18 05:40: White Blood Count 6.5, Red Blood Count 2.63L, Hemoglobin 8.0L, Hematocrit 23.7L , Mean Corpuscular Volume 90, Mean Corpuscular Hemoglobin 30.5, Mean Corpuscular Hemoglobin Concent 33.8, Red Cell Distribution Width 13.6, Platelet Count 144L, Mean Platelet Volume 6.1L, Neutrophils (%) (Auto) , Lymphocytes (%) (Auto) , Monocytes (%) (Auto) , Eosinophils (%) (Auto) , Basophils (%) (Auto) , Differential Total Cells Counted 100, Neutrophils % (Manual) 62, Lymphocytes % ( Manual) 24, Monocytes % (Manual) 3, Eosinophils % (Manual) 1, Basophils % ( Manual) 1, Myelocytes % 3H, Band Neutrophils 6, Platelet Estimate DecreasedL, Platelet Morphology Normal, Red Blood Cell Morphology Normal, Erythrocyte Sedimentation Rate 88H, Reticulocyte Count 0.2, Prothrombin Time 11.4, Prothromb Time International Ratio 1.1, Activated Partial Thromboplast Time 28, Sodium Level 149H, Potassium Level 3.3L, Chloride Level 118H, Carbon Dioxide Level 23, Anion Gap 8, Blood Urea Nitrogen 32H, Creatinine 1.1, Estimat Glomerular Filtration Rate , Glucose Level 134H, Calcium Level 7.9L, Phosphorus Level 1.8L, Magnesium Level 2.2, Iron Level 9L, Total Iron Binding Capacity 97L , Percent Iron Saturation 9L, Unsaturated Iron Binding 88L, Total Bilirubin 0.3 , Aspartate Amino Transf (AST/SGOT) 25, Alanine Aminotransferase (ALT/SGPT) 22, Alkaline Phosphatase 75, Lactate Dehydrogenase 213, Total Protein 5.3L, Albumin 1.8L, Globulin 3.5, Albumin/Globulin Ratio 0.5L, Carcinoembryonic Antigen [ Pending], Vitamin B12 Level 1968H, Folate 27.4 10/15/18 08:18: Arterial Blood pH 7.461H, Arterial Blood Partial Pressure CO2 28.3L, Arterial Blood Partial Pressure O2 67.1L, Arterial Blood HCO3 19.7L, Arterial Blood Oxygen Saturation 94.5L, Arterial Blood Base Excess -3.3L, Khadar Test Positive Height (Feet): 5 Height (Inches): 4.00 Weight (Pounds): 125 General Appearance: lethargic, confused, agitated Trever Easley MD Oct 15, 2018 22:39
[2018-10-16] VITALS (24 sets, daily range): BP systolic 88–128; BP diastolic 31–64
--- NOTE | 2018-10-16 | NUR ---
NURSE NOTES:Turned q 2hrs prn with good skin care done. Skin is intact.
[2018-10-16] MEDS: NovoLOG Insulin Flexpen SUBQ SCH ×5 (00:21→23:51)
--- NOTE | 2018-10-16 02:00 | NUR ---
NURSE NOTES:VSS. No pressors needed at this time.
[2018-10-16] MEDS: Meropenem 1 GM in NS 55 ML IVPB SCH ×2 (02:55→14:48)
--- NOTE | 2018-10-16 04:00 | NUR ---
NURSE NOTES:Complete bath with bed changed done.
[2018-10-16 06:00] LABS: BASOPHILS % (AUTO) 0.4 % (0.0-2.0); HEMATOCRIT 25.7 % (37.0-47.0); HEMOGLOBIN 8.5 G/DL (12.0-16.0); LYMPHOCYTES % (AUTO) 20.7 % (20.0-45.0); MEAN CORPUSCULAR VOLUME 91 FL (80-99); MONOCYTES % (AUTO) 5.4 % (1.0-10.0); NEUTROPHILS % (AUTO) 71.4 % (45.0-75.0); PLATELET COUNT 174 K/UL (150-450); RED BLOOD COUNT 2.83 M/UL (4.20-5.40); RED CELL DISTRIBUTION WIDTH 13.6 % (11.6-14.8); WHITE BLOOD COUNT 7.1 K/UL (4.8-10.8)
--- NOTE | 2018-10-16 06:00 | NUR ---
NURSE NOTES:BP remained stable. More alert at this time.
[2018-10-16 06:09] LABS: ALANINE AMINOTRANSFERASE 25 U/L (12-78); ALBUMIN 1.7 G/DL (3.4-5.0); ALBUMIN/GLOBULIN RATIO 0.5 (1.0-2.7); ALKALINE PHOSPHATASE 78 U/L (46-116); ANION GAP 8 mmol/L (5-15); ASPARTATE AMINO TRANSFERASE 29 U/L (15-37); BILIRUBIN,TOTAL 0.4 MG/DL (0.2-1.0); BLOOD UREA NITROGEN 27 mg/dL (7-18); CALCIUM 7.8 MG/DL (8.5-10.1); CARBON DIOXIDE 23 MMOL/L (21-32); CHLORIDE 116 MMOL/L (98-107); CREATININE 0.9 MG/DL (0.55-1.30); PHOSPHORUS 2.3 MG/DL (2.5-4.9); POTASSIUM 4.3 MMOL/L (3.5-5.1); SODIUM 147 MMOL/L (136-145)
--- NOTE | 2018-10-16 06:51 | NUR ---
RESPIRATORY NOTE: Received pt on current vent settings. Pt endotracheal tube is patent and secured via anchor fast. Suctioned pt prn. No resp distress noted. Vent alarms are on and audible. Vent is plugged into red outlet. Will monitor pt progress.
--- NOTE | 2018-10-16 07:42 | NUR ---
HAND-OFF: Report given to Dee Kingston using SBAR. Walking roounds done.
--- NOTE | 2018-10-16 07:43 | NUR ---
NURSE NOTES: Report received from BOUBACAR Ball. Pt is sleeping in bed. Lethargic. Open eyes spontaneously and show facial grimace to pain. Sinus rhythm on hospital monitor. Left side contracture noted. Old blood noted on mouth. Orally intubated. ETT 7.0/21cm at lip line. AC 18, TV 450, FiO2 35%, P 5. O2 sat 98%. No respiratory distress noted. G-tube in place receiving Glucerna 1.5 at 35cc/hr. No residual noted. Roberts in place draining to gravity. Right UA PICC line patent and asymptomatic. D5W with 30meq KCL is running at 50cc/hr. Bed in lowest position. Side rails up x3. Will resume plan of care.
[2018-10-16] MEDS: Pantoprazole Inj IVP SCH (08:56)
--- NOTE | 2018-10-16 10:08 | NUR ---
NURSE NOTES: Dr Sky here to see the patient. Order for weaning received, noted, and carried out. RT tried weaning and patient failed SIMV and CPAP. Caregiver at bedside.
--- NOTE | 2018-10-16 10:08 | Pulmonolgy Critical Care Note ---
Critical Care - Asmt/Plan Problems: (1) Acute respiratory failure (2) Healthcare-associated pneumonia (3) Sepsis (4) Diabetes mellitus type II, uncontrolled (5) Feeding by G-tube (6) Hemiparesis affecting left side as late effect of cerebrovascular accident Respiratory: monitor respiratory rate, adjust FIO2, CXR Cardiac: continue to monitor HR/BP Renal: F/U I&O Infectious Disease: check cultures, continue antibiotics Gastrointestinal: continue feedings/current rate Endocrine: monitor blood sugar Hematologic: monitor H/H, transfuse if hgb<8.5 Neurologic: PRN Ativan, keep patient comfortable Affect: PRN ativan Prophylaxis: Heparin Notes Reviewed: administrative support associate, renal Discussed with: nurses, consultants, correctional casework specialistoutlet manager - Objective Last 24 Hour Vital Signs Date Time Temp Pulse Resp B/P (MAP) Pulse Ox O2 Delivery O2 Flow Rate FiO2 10/16/18 09:00 61 18 101/31 (54) 99 10/16/18 08:44 78 24 35 10/16/18 08:00 98.9 64 20 90/37 (54) 98 10/16/18 08:00 35 10/16/18 07:00 63 18 104/40 (61) 99 10/16/18 06:51 81 28 35 10/16/18 06:00 67 26 110/36 (60) 96 10/16/18 05:26 70 25 35 10/16/18 05:00 68 27 113/36 (61) 96 10/16/18 04:00 35 10/16/18 04:00 Endotracheal Tube Mechanical Ventilator 10/16/18 04:00 76 10/16/18 04:00 98.8 82 27 115/47 (69) 96 10/16/18 03:25 79 26 35 10/16/18 03:00 83 26 128/47 (74) 96 10/16/18 02:00 77 26 115/36 (62) 96 10/16/18 01:08 78 28 35 10/16/18 01:00 71 25 103/36 (58) 96 10/16/18 00:00 77 10/16/18 00:00 99.2 76 30 116/46 (69) 96 10/16/18 00:00 Endotracheal Tube Mechanical Ventilator 10/16/18 00:00 35 10/15/18 23:00 75 30 116/46 (69) 96 10/15/18 22:51 78 35 35 10/15/18 22:00 75 31 112/50 (70) 96 10/15/18 21:00 65 23 117/39 (65) 97 10/15/18 20:40 94 27 35 10/15/18 20:00 99.6 68 24 97/35 (55) 98 10/15/18 20:00 35 10/15/18 20:00 Endotracheal Tube Mechanical Ventilator 10/15/18 20:00 68 10/15/18 19:30 74 116/46 10/15/18 19:15 87 32 35 10/15/18 19:00 58 21 94/36 (55) 98 10/15/18 18:00 60 21 106/40 (62) 99 10/15/18 17:14 63 21 35 10/15/18 17:00 60 21 96/38 (57) 99 10/15/18 16:00 Endotracheal Tube Mechanical Ventilator 10/15/18 16:00 99.0 10/15/18 16:00 66 10/15/18 16:00 35 10/15/18 16:00 66 21 109/48 (68) 99 10/15/18 15:00 65 21 106/46 (66) 99 10/15/18 14:51 64 19 35 10/15/18 14:00 69 21 117/48 (71) 99 10/15/18 13:00 70 21 94/38 (56) 99 10/15/18 12:58 83 32 35 10/15/18 12:00 35 10/15/18 12:00 98.9 89 20 128/47 (74) 98 10/15/18 12:00 62 10/15/18 12:00 Endotracheal Tube Mechanical Ventilator 10/15/18 11:00 66 21 107/40 (62) 99 10/15/18 10:51 62 19 35 Status: awake Condition: critical Neck: full ROM Lungs: chest wall tender Heart: HR/BP stable Abdomen: soft, active bowel sounds Extremities: no C/C/E, edema Micro: Microbiology Date/Time Source Procedure Growth Status 10/14/18 05:00 Sputum Induced Gram Stain - Final Resulted 10/14/18 05:00 Sputum Induced Sputum Culture Pending Resulted 10/14/18 20:50 Stool Stool Culture - Preliminary NORMAL FECAL JONATAN. Resulted 10/14/18 20:50 Stool Clostridium difficile Toxin Assay - Final Complete Accucheck: 144 Critical Care - Subjective ROS Limited/Unobtainable: Yes Condition: critical EKG Rhythm: Sinus Rhythm FI02: 35 Vent Support Breath Rate: 18 Vent Support Mode: AC Vent Tidal Volume: 450 Sputum Amount: Moderate PEEP: 5.0 PIP: 33 Tube Feeding Amount: 35 I&O: Intake and Output 10/15/18 10/16/18 19:00 07:00 Intake Total 2127.416 ml 1030 ml Output Total 580 ml 602 ml Balance 1547.416 ml 428 ml Intake Free Water 60 ml IV Total 1707.416 ml 550 ml Tube Feeding 420 ml 420 ml Output Urine Total 580 ml 600 ml Stool Total 2 ml # Bowel Movements 5 CXR: no change ET-Tube: 7.0 ET Position: 21 Labs: Laboratory Tests Test 10/16/18 05:19 White Blood Count 7.1 K/UL (4.8-10.8) Red Blood Count 2.83 M/UL (4.20-5.40) L Hemoglobin 8.5 G/DL (12.0-16.0) L Hematocrit 25.7 % (37.0-47.0) L Mean Corpuscular Volume 91 FL (80-99) Mean Corpuscular Hemoglobin 30.1 PG (27.0-31.0) Mean Corpuscular Hemoglobin Concent 33.2 G/DL (32.0-36.0) Red Cell Distribution Width 13.6 % (11.6-14.8) Platelet Count 174 K/UL (150-450) Mean Platelet Volume 6.3 FL (6.5-10.1) L Neutrophils (%) (Auto) 71.4 % (45.0-75.0) Lymphocytes (%) (Auto) 20.7 % (20.0-45.0) Monocytes (%) (Auto) 5.4 % (1.0-10.0) Eosinophils (%) (Auto) 2.0 % (0.0-3.0) Basophils (%) (Auto) 0.4 % (0.0-2.0) Sodium Level 147 MMOL/L (136-145) H Potassium Level 4.3 MMOL/L (3.5-5.1) Chloride Level 116 MMOL/L (98-107) H Carbon Dioxide Level 23 MMOL/L (21-32) Anion Gap 8 mmol/L (5-15) Blood Urea Nitrogen 27 mg/dL (7-18) H Creatinine 0.9 MG/DL (0.55-1.30) Estimat Glomerular Filtration Rate mL/min (>60) Glucose Level 141 MG/DL (74-106) H Calcium Level 7.8 MG/DL (8.5-10.1) L Phosphorus Level 2.3 MG/DL (2.5-4.9) L Magnesium Level 2.2 MG/DL (1.8-2.4) Total Bilirubin 0.4 MG/DL (0.2-1.0) Aspartate Amino Transf (AST/SGOT) 29 U/L (15-37) Alanine Aminotransferase (ALT/SGPT) 25 U/L (12-78) Alkaline Phosphatase 78 U/L (46-116) Troponin I 0.021 ng/mL (0.000-0.056) Pro-B-Type Natriuretic Peptide 6259 pg/mL (0-125) H Total Protein 5.3 G/DL (6.4-8.2) L Albumin 1.7 G/DL (3.4-5.0) L Globulin 3.6 g/dL Albumin/Globulin Ratio 0.5 (1.0-2.7) L Barbara Sky MD Oct 16, 2018 10:08
[2018-10-16] MEDS ORDERED: Sodium Phosphate 30 MM in Sodium Chloride 500ML 550 ML IV ONE (11:15)
--- NOTE | 2018-10-16 12:30 | NUR ---
NURSE NOTES: An episode of desaturation to 89-90% noted. O2 saturation went up right away. Turned and repositioned pt. Also small bleeding noted on lips. Gentle oral care done. Will continue to monitor.
--- NOTE | 2018-10-16 14:38 | Internal Med Progress Note ---
Subjective Date of Service: Oct 16, 2018 Physician Name Dimitrios Daly Attending Physician Tereso Toro MD Current Medications Medications (Trade) Dose Ordered Sig/Christopher Route PRN Reason Start Time Stop Time Status Last Admin Dose Admin Acetaminophen (Tylenol) 650 mg Q4H PRN GT Mild Pain/Temp > 101 10/13/18 04:30 11/11/18 04:29 10/14/18 05:38 Chlorhexidine Gluconate (Tatiana-Hex 2%) 1 applic DAILY@2000 TOPIC 10/13/18 20:00 11/12/18 19:59 10/15/18 20:18 Dextrose (Dextrose 50%) 25 ml Q30M PRN IV Hypoglycemia 10/13/18 03:30 11/11/18 04:29 Dextrose (Dextrose 50%) 50 ml Q30M PRN IV Hypoglycemia 10/13/18 03:30 11/11/18 04:29 Haloperidol Lactate (Haldol) 5 mg Q6H PRN IM Agitation 10/14/18 13:30 11/13/18 13:29 10/14/18 15:37 Insulin Aspart (NovoLOG) EVERY 6 HOURS SUBQ 10/13/18 06:00 11/11/18 06:29 10/16/18 11:50 Meropenem 1 gm/ Sodium Chloride 55 ml @ 110 mls/hr Q12H IVPB 10/14/18 15:00 10/19/18 14:59 10/16/18 02:55 Norepinephrine Bitartrate 4 mg/ Dextrose 250 ml @ 0 mls/hr Q24H IV 10/13/18 09:00 11/12/18 08:59 10/13/18 14:21 Pantoprazole (Protonix) 40 mg DAILY IVP 10/14/18 09:00 11/13/18 08:59 10/16/18 08:56 Phenylephrine HCl 50 mg/Dextrose 250 ml @ 0 mls/hr Q24H IV 10/13/18 19:30 11/12/18 19:29 Sitagliptin Phosphate (Januvia) 100 mg ACBREAKFAST GT 10/13/18 06:30 11/11/18 06:29 10/16/18 06:21 Sodium Phosphate 30 mm/Sodium Chloride 560 ml @ 93.3 mls/hr ONCE ONCE IV 10/16/18 11:15 10/16/18 17:15 10/16/18 11:29 Vancomycin HCl (Vanco rx to dose) 1 ea DAILY PRN MISC Per rx protocol 10/13/18 09:00 11/11/18 12:14 Vancomycin HCl 1 gm/Dextrose 275 ml @ 183.708 mls/hr Q24H IVPB 10/14/18 15:00 10/19/18 14:59 10/15/18 14:45 Allergies: Coded Allergies: No Known Allergies (Verified , 08/14/06) ROS Limited/Unobtainable: Yes Subjective 78 YO F admitted with pneumonia. Now sepsis and hypotension. Intubated and sedated. ICU. Cover for Int Los-Dr Toro. Off pressors Objective Last Vital Signs Date Time Temp Pulse Resp B/P (MAP) Pulse Ox O2 Delivery O2 Flow Rate FiO2 10/16/18 14:00 66 18 92/31 (51) 98 10/16/18 12:39 35 10/16/18 12:00 99.0 10/16/18 12:00 Endotracheal Tube Mechanical Ventilator 10/12/18 20:00 5.0 5.0 Laboratory Tests Test 10/16/18 05:19 White Blood Count 7.1 K/UL (4.8-10.8) Red Blood Count 2.83 M/UL (4.20-5.40) L Hemoglobin 8.5 G/DL (12.0-16.0) L Hematocrit 25.7 % (37.0-47.0) L Mean Corpuscular Volume 91 FL (80-99) Mean Corpuscular Hemoglobin 30.1 PG (27.0-31.0) Mean Corpuscular Hemoglobin Concent 33.2 G/DL (32.0-36.0) Red Cell Distribution Width 13.6 % (11.6-14.8) Platelet Count 174 K/UL (150-450) Mean Platelet Volume 6.3 FL (6.5-10.1) L Neutrophils (%) (Auto) 71.4 % (45.0-75.0) Lymphocytes (%) (Auto) 20.7 % (20.0-45.0) Monocytes (%) (Auto) 5.4 % (1.0-10.0) Eosinophils (%) (Auto) 2.0 % (0.0-3.0) Basophils (%) (Auto) 0.4 % (0.0-2.0) Sodium Level 147 MMOL/L (136-145) H Potassium Level 4.3 MMOL/L (3.5-5.1) Chloride Level 116 MMOL/L (98-107) H Carbon Dioxide Level 23 MMOL/L (21-32) Anion Gap 8 mmol/L (5-15) Blood Urea Nitrogen 27 mg/dL (7-18) H Creatinine 0.9 MG/DL (0.55-1.30) Estimat Glomerular Filtration Rate mL/min (>60) Glucose Level 141 MG/DL (74-106) H Calcium Level 7.8 MG/DL (8.5-10.1) L Phosphorus Level 2.3 MG/DL (2.5-4.9) L Magnesium Level 2.2 MG/DL (1.8-2.4) Total Bilirubin 0.4 MG/DL (0.2-1.0) Aspartate Amino Transf (AST/SGOT) 29 U/L (15-37) Alanine Aminotransferase (ALT/SGPT) 25 U/L (12-78) Alkaline Phosphatase 78 U/L (46-116) Troponin I 0.021 ng/mL (0.000-0.056) Pro-B-Type Natriuretic Peptide 6259 pg/mL (0-125) H Total Protein 5.3 G/DL (6.4-8.2) L Albumin 1.7 G/DL (3.4-5.0) L Globulin 3.6 g/dL Albumin/Globulin Ratio 0.5 (1.0-2.7) L Microbiology Date/Time Source Procedure Growth Status 10/14/18 18:40 Blood Blood Culture - Preliminary NO GROWTH AFTER 24 HOURS Resulted 10/14/18 05:00 Sputum Induced Gram Stain - Final Resulted 10/14/18 05:00 Sputum Culture - Preliminary Gram Negative Jarrett Resulted 10/14/18 20:50 Stool Stool Culture - Preliminary NORMAL FECAL JONATAN. Resulted 10/14/18 20:50 Stool Clostridium difficile Toxin Assay - Final Complete Intake and Output 10/15/18 10/16/18 19:00 07:00 Intake Total 2127.416 ml 1030 ml Output Total 580 ml 602 ml Balance 1547.416 ml 428 ml Intake Free Water 60 ml IV Total 1707.416 ml 550 ml Tube Feeding 420 ml 420 ml Output Urine Total 580 ml 600 ml Stool Total 2 ml # Bowel Movements 5 Objective General Appearance: WD/WN, moderate distress, lethargic EENT: PERRL/EOMI, normal ENT inspection Neck: non-tender, normal alignment, supple Cardiovascular: normal peripheral pulses, normal rate, regular rhythm, no gallop/murmur, no JVD Respiratory/Chest: Mech Vent; respiratory distress, crackles/rales, rhonchi - bilaterally, expiratory wheezing Abdomen: normal bowel sounds, non tender, soft, no organomegaly, no mass Neurologic: cook helper II-XII grossly normal Skin: normal pigmentation, warm/dry Assessment/Plan Problem List: (1) COPD (chronic obstructive pulmonary disease) (2) Cerebral vascular disease (3) Acute respiratory failure Assessment & Plan: Mech Vent per pulmonary (4) Sepsis (5) Diabetes mellitus type II, uncontrolled (6) HTN (hypertension) (7) Hemiparesis affecting left side as late effect of cerebrovascular accident (8) Healthcare-associated pneumonia Assessment & Plan: Continue vanco and Meropenem per ID (9) Hypotension Assessment & Plan: due to sepsis; continue levophed (10) Sepsis (11) Diarrhea Assessment & Plan: stool for C. Diff and cult and sens (12) Elevated troponin Assessment & Plan: See cardiology note. (13) CHF (congestive heart failure) Status: not improved Assessment/Plan Discussed with Emily rios via telephone. Dimitrios Daly MD Oct 16, 2018 14:38
[2018-10-16] MEDS: Vancomycin 1gm/D5W 275ml IVPB SCH ×2 (14:48)
--- NOTE | 2018-10-16 14:57 | NUR ---
NURSE NOTES: Dr Valentine at bedside, assessing the patient. Updated him with pt's current condition. Pt is still lethargic but wakes up and respond to pain. VSS.
--- NOTE | 2018-10-16 14:57 | Infectious Diseases Prog Note ---
Assessment/Plan Problems: (1) Aspiration pneumonia Assessment & Plan: due to gram negative rods , continue vancomycin and meropenem empirically pending sputum culture , aspiration precaution with aggressive suctioning , keep HOB > 30 degree .monitor CXR (2) Sepsis Assessment & Plan: due to the above , on wide spectrum antibiotics , await repeated blood culture (3) Acute respiratory failure Assessment & Plan: due to the above , intubated on mechanical ventilation , monitor CXR and ABG (4) Hypotension Assessment & Plan: suspect due to sepsis , continue antibiotics and hydration (5) Diabetes mellitus type II, uncontrolled Assessment & Plan: recommend tight glycemic control to keep blood glucose between 100-140 (6) JEFFY (acute kidney injury) Assessment & Plan: due to hypotension and sepsis, continue hydration, monitor renal function, and UOP Subjective ROS Limited/Unobtainable: Yes Allergies: Coded Allergies: No Known Allergies (Verified , 08/14/06) Subjective she was still intubated and on mechanical ventilation , in ICU , for close monitoring , no fever . no diarrhea or significant secretions, on weaning trials Objective Vital Signs Last 24 Hour Vital Signs Date Time Temp Pulse Resp B/P (MAP) Pulse Ox O2 Delivery O2 Flow Rate FiO2 10/16/18 14:00 66 18 92/31 (51) 98 10/16/18 13:00 62 18 98/31 (53) 99 10/16/18 12:39 79 24 35 10/16/18 12:35 56 10/16/18 12:00 99.0 58 18 88/34 (52) 98 10/16/18 12:00 35 10/16/18 12:00 Endotracheal Tube Mechanical Ventilator 10/16/18 11:00 61 19 93/32 (52) 97 10/16/18 10:40 77 24 35 10/16/18 10:00 56 18 92/31 (51) 98 10/16/18 09:00 61 18 101/31 (54) 99 10/16/18 08:44 78 24 35 10/16/18 08:00 98.9 64 20 90/37 (54) 98 10/16/18 08:00 Endotracheal Tube Mechanical Ventilator 10/16/18 08:00 35 10/16/18 07:27 71 10/16/18 07:00 63 18 104/40 (61) 99 10/16/18 06:51 81 28 35 10/16/18 06:00 67 26 110/36 (60) 96 10/16/18 05:26 70 25 35 10/16/18 05:00 68 27 113/36 (61) 96 10/16/18 04:00 35 10/16/18 04:00 Endotracheal Tube Mechanical Ventilator 10/16/18 04:00 76 10/16/18 04:00 98.8 82 27 115/47 (69) 96 10/16/18 03:25 79 26 35 10/16/18 03:00 83 26 128/47 (74) 96 10/16/18 02:00 77 26 115/36 (62) 96 10/16/18 01:08 78 28 35 10/16/18 01:00 71 25 103/36 (58) 96 10/16/18 00:00 77 10/16/18 00:00 99.2 76 30 116/46 (69) 96 10/16/18 00:00 Endotracheal Tube Mechanical Ventilator 10/16/18 00:00 35 10/15/18 23:00 75 30 116/46 (69) 96 10/15/18 22:51 78 35 35 10/15/18 22:00 75 31 112/50 (70) 96 10/15/18 21:00 65 23 117/39 (65) 97 10/15/18 20:40 94 27 35 10/15/18 20:00 99.6 68 24 97/35 (55) 98 10/15/18 20:00 35 10/15/18 20:00 Endotracheal Tube Mechanical Ventilator 10/15/18 20:00 68 10/15/18 19:30 74 116/46 10/15/18 19:15 87 32 35 10/15/18 19:00 58 21 94/36 (55) 98 10/15/18 18:00 60 21 106/40 (62) 99 10/15/18 17:14 63 21 35 10/15/18 17:00 60 21 96/38 (57) 99 10/15/18 16:00 Endotracheal Tube Mechanical Ventilator 10/15/18 16:00 99.0 10/15/18 16:00 66 10/15/18 16:00 35 10/15/18 16:00 66 21 109/48 (68) 99 10/15/18 15:00 65 21 106/46 (66) 99 Height (Feet): 5 Height (Inches): 4.00 Weight (Pounds): 128 General Appearance: WD/WN, no acute distress HEENT: normocephalic, atraumatic, supple, no JVD Respiratory/Chest: no respiratory distress, no accessory muscle use, decreased breath sounds, crackles/rales Cardiovascular: normal peripheral pulses, normal rate, regular rhythm, no gallop/murmur, no JVD Abdomen: normal bowel sounds, soft, non tender, no organomegaly, non distended , no mass, no scars Extremities: no cyanosis, no clubbing Skin: no rash, no lesions, ulcers Neurologic/Psychiatric: unresponsiveness Lymphatic: no neck adenopathy, no groin adenopathy Musculoskeletal: normal muscle bulk, no effusion Microbiology Date/Time Source Procedure Growth Status 10/14/18 18:40 Blood Blood Culture - Preliminary NO GROWTH AFTER 24 HOURS Resulted 10/14/18 05:00 Sputum Induced Gram Stain - Final Resulted 10/14/18 05:00 Sputum Culture - Preliminary Gram Negative Jarrett Resulted 10/14/18 20:50 Stool Stool Culture - Preliminary NORMAL FECAL JONATAN. Resulted 10/14/18 20:50 Stool Clostridium difficile Toxin Assay - Final Complete Laboratory Tests Test 10/16/18 05:19 White Blood Count 7.1 K/UL (4.8-10.8) Red Blood Count 2.83 M/UL (4.20-5.40) L Hemoglobin 8.5 G/DL (12.0-16.0) L Hematocrit 25.7 % (37.0-47.0) L Mean Corpuscular Volume 91 FL (80-99) Mean Corpuscular Hemoglobin 30.1 PG (27.0-31.0) Mean Corpuscular Hemoglobin Concent 33.2 G/DL (32.0-36.0) Red Cell Distribution Width 13.6 % (11.6-14.8) Platelet Count 174 K/UL (150-450) Mean Platelet Volume 6.3 FL (6.5-10.1) L Neutrophils (%) (Auto) 71.4 % (45.0-75.0) Lymphocytes (%) (Auto) 20.7 % (20.0-45.0) Monocytes (%) (Auto) 5.4 % (1.0-10.0) Eosinophils (%) (Auto) 2.0 % (0.0-3.0) Basophils (%) (Auto) 0.4 % (0.0-2.0) Sodium Level 147 MMOL/L (136-145) H Potassium Level 4.3 MMOL/L (3.5-5.1) Chloride Level 116 MMOL/L (98-107) H Carbon Dioxide Level 23 MMOL/L (21-32) Anion Gap 8 mmol/L (5-15) Blood Urea Nitrogen 27 mg/dL (7-18) H Creatinine 0.9 MG/DL (0.55-1.30) Estimat Glomerular Filtration Rate mL/min (>60) Glucose Level 141 MG/DL (74-106) H Calcium Level 7.8 MG/DL (8.5-10.1) L Phosphorus Level 2.3 MG/DL (2.5-4.9) L Magnesium Level 2.2 MG/DL (1.8-2.4) Total Bilirubin 0.4 MG/DL (0.2-1.0) Aspartate Amino Transf (AST/SGOT) 29 U/L (15-37) Alanine Aminotransferase (ALT/SGPT) 25 U/L (12-78) Alkaline Phosphatase 78 U/L (46-116) Troponin I 0.021 ng/mL (0.000-0.056) Pro-B-Type Natriuretic Peptide 6259 pg/mL (0-125) H Total Protein 5.3 G/DL (6.4-8.2) L Albumin 1.7 G/DL (3.4-5.0) L Globulin 3.6 g/dL Albumin/Globulin Ratio 0.5 (1.0-2.7) L Current Medications Medications (Trade) Dose Ordered Sig/Christopher Route PRN Reason Start Time Stop Time Status Last Admin Dose Admin Acetaminophen (Tylenol) 650 mg Q4H PRN GT Mild Pain/Temp > 101 10/13/18 04:30 11/11/18 04:29 10/14/18 05:38 Chlorhexidine Gluconate (Tatiana-Hex 2%) 1 applic DAILY@1999 TOPIC 10/13/18 20:00 11/12/18 19:59 10/15/18 20:18 Dextrose (Dextrose 50%) 25 ml Q30M PRN IV Hypoglycemia 10/13/18 03:30 11/11/18 04:29 Dextrose (Dextrose 50%) 50 ml Q30M PRN IV Hypoglycemia 10/13/18 03:30 11/11/18 04:29 Haloperidol Lactate (Haldol) 5 mg Q6H PRN IM Agitation 10/14/18 13:30 11/13/18 13:29 10/14/18 15:37 Insulin Aspart (NovoLOG) EVERY 6 HOURS SUBQ 10/13/18 06:00 11/11/18 06:29 10/16/18 11:50 Meropenem 1 gm/ Sodium Chloride 55 ml @ 110 mls/hr Q12H IVPB 10/14/18 15:00 10/19/18 14:59 10/16/18 14:48 Norepinephrine Bitartrate 4 mg/ Dextrose 250 ml @ 0 mls/hr Q24H IV 10/13/18 09:00 11/12/18 08:59 10/13/18 14:21 Pantoprazole (Protonix) 40 mg DAILY IVP 10/14/18 09:00 11/13/18 08:59 10/16/18 08:56 Phenylephrine HCl 50 mg/Dextrose 250 ml @ 0 mls/hr Q24H IV 10/13/18 19:30 11/12/18 19:29 Sitagliptin Phosphate (Januvia) 100 mg ACBREAKFAST GT 10/13/18 06:30 11/11/18 06:29 10/16/18 06:21 Sodium Phosphate 30 mm/Sodium Chloride 560 ml @ 93.3 mls/hr ONCE ONCE IV 10/16/18 11:15 10/16/18 17:15 10/16/18 11:29 Vancomycin HCl (Vanco rx to dose) 1 ea DAILY PRN MISC Per rx protocol 10/13/18 09:00 11/11/18 12:14 Vancomycin HCl 1 gm/Dextrose 275 ml @ 183.708 mls/hr Q24H IVPB 10/14/18 15:00 10/19/18 14:59 10/16/18 14:48 Porfirio Valentine M.D. Oct 16, 2018 14:57
--- NOTE | 2018-10-16 15:48 | Cardiology Report ---
APPROVED REPORT EXAM: Two-dimensional and M-mode echocardiogram with Doppler and color Doppler. INDICATION OTHER M-Mode DIMENSIONS IVSd1.1 (0.7-1.1cm)Left Atrium (MM)3.0 (1.6-4.0cm) LVDd4.0 (3.5-5.6cm)Aortic Root2.9 (2.0-3.7cm) PWd1.2 (0.7-1.1cm)Aortic Cusp Exc.1.8 (1.5-2.0cm) IVSs1.3 cm LVDs2.6 (2.5-4.0cm) PWs1.5 cm Normal left ventricular chamber size, systolic function and wall motion to extent visualized. Left ventricular ejection fraction estimated to be 55-60%. No evidence of left ventricular hypertrophy. Anterior Echo-free space, may be due to pericardial fat or effusion. Pleural effusion present . All other cardiac chamber sizes are within normal limits. Mild aortic valve sclerosis with adequate cusp excursion. Mildly thickened mitral valve leaflets with normal excursion. Mitral annulus and aortic root calcification. Pulmonic valve not well visualized. IVC at size 2.0 cm without physiologic collapse,suggestive of increased RA pressure, RVSP estimated 15 mmhg. A color flow and spectral Doppler study was performed and revealed: Trace aortic regurgitation. Normal left ventricular diastolic function . Trace mitral regurgitation. Mild tricuspid regurgitation. Tricuspid systolic velocities suggests peak right ventricular systolic pressure of 43 mmHg,consistent with mild pulmonary hypertension .
--- NOTE | 2018-10-16 15:49 | Diagnostic Imaging Report ---
Indication: Dyspnea Comparison: 10/14/2018 A single view chest radiograph was obtained. Findings: Patchy interstitial and some alveolar airspace opacities are present within the lungs, slightly progressed since the previous day. Findings are probably on the basis of pulmonary edema. Correlate clinically. Tubes and lines are satisfactory. Heart size is normal and stable. 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
--- NOTE | 2018-10-16 15:52 | Diagnostic Imaging Report ---
EXAM: XR Chest, 1 View CLINICAL HISTORY: DYSPNEA TECHNIQUE: Frontal view of the chest. COMPARISON: Chest x-rays dated 10/15/18 FINDINGS: Lungs: Unchanged appearance of patchy pulmonary opacities, predominantly over bilateral mid and lower lungs. Unchanged diffuse increased interstitial markings. Pleural space: Unremarkable. The costophrenic angles are sharp. No visible pneumothorax. Heart: Unremarkable. No cardiomegaly. Mediastinum: Unremarkable. Bones/joints: Unremarkable. Vasculature: Atherosclerotic calcifications are noted within the aortic arch. Tubes, lines and devices: Endotracheal tube tip 2.0 cm above the minerva. EKG leads overlie the thorax. Right superior and central venous catheter with the tip in the region of the SVC/right atrial junction. IMPRESSION: 1. Unchanged appearance of patchy pulmonary opacities, predominantly over bilateral mid and lower lungs. 2. Unchanged diffuse increased interstitial markings.
--- NOTE | 2018-10-16 16:20 | NUR ---
NURSE NOTES: PM care given. Turned and repositioned pt. Oral care done. Temp 99.8. Will continue to monitor.
--- NOTE | 2018-10-16 19:10 | NUR ---
HAND-OFF: Report given to BOUBACAR Navarro.
[2018-10-16] MEDS: Phenylephrine 50 MG in D5W 245 ML IV SCH (19:30)
--- NOTE | 2018-10-16 19:30 | NUR ---
NURSE NOTES: Received pt in o apparent distress. Opens eyes to pain, non verbal , no evidence of pain or discomfort at this time. HOB elevated. Remains orally intubated with #7 ETT placed over left lip at 21cm. tolerating current vent settings of AC 18 TV450 fiO2.35 peep 5, saturating 98-100%. Secretions pinkish sainz, thick; chest sounds with scattered rhonchi. Contracted on all 4 extremities with generalized edema. Afebrile, NSR, BP stable. PICC on JOLEEN intact with IVF of D5W infusing at 50ml/h. GT patent; GTF with Glucerna 1.5 runnionmg at 35ml/h with 0 residual. No BM, skin pale, warm and intact. Cargiver at the bedside; plan of care explained. Will continue to monitor
[2018-10-16] MEDS: Dyna-Hex 2% Top Sol 2oz TOPIC SCH (21:05)
--- NOTE | 2018-10-16 22:00 | NUR ---
NURSE NOTES: Noted to be bleeding from the mouth during oral care. Gently suctioAned orally using soft tip catheter. No active bleeding on visual exam. Applied A&D ointment to lip. Kept scab on the lip. Pt not on any anticoags. Will continue to observe and monitor
[2018-10-17] VITALS (22 sets, daily range): BP systolic 90–115; BP diastolic 0–48
--- NOTE | 2018-10-17 | NUR ---
NURSE NOTES: Calm, asleep; afebrile; BP stable. Slight bleeding from the lip and mouth noted. No distress otherwise.
--- NOTE | 2018-10-17 02:00 | NUR ---
NURSE NOTES: Turned, repositioned. Pt's head more inclined to the left; Left leg/thigh in abduction (contracted). No distress noted.
[2018-10-17] MEDS: Meropenem 1 GM in NS 55 ML IVPB SCH ×2 (02:32→14:54)
--- NOTE | 2018-10-17 04:00 | NUR ---
NURSE NOTES: Had 1 small formed BM. Complete bed bath given. No skin breakdown. FC patent; tolerating TF and current vent settings. Afebrile; NSR.
[2018-10-17 05:43] LABS: HEMATOCRIT 23.4 % (37.0-47.0); HEMOGLOBIN 7.7 G/DL (12.0-16.0); MEAN CORPUSCULAR VOLUME 91 FL (80-99); PLATELET COUNT 211 K/UL (150-450); RED BLOOD COUNT 2.57 M/UL (4.20-5.40); RED CELL DISTRIBUTION WIDTH 13.2 % (11.6-14.8); WHITE BLOOD COUNT 6.5 K/UL (4.8-10.8)
[2018-10-17] MEDS: NovoLOG Insulin Flexpen SUBQ SCH ×3 (05:51→18:25)
[2018-10-17 05:56] LABS: ALANINE AMINOTRANSFERASE 25 U/L (12-78); ALBUMIN 1.7 G/DL (3.4-5.0); ALBUMIN/GLOBULIN RATIO 0.5 (1.0-2.7); ALKALINE PHOSPHATASE 76 U/L (46-116); ANION GAP 8 mmol/L (5-15); ASPARTATE AMINO TRANSFERASE 33 U/L (15-37); BILIRUBIN,TOTAL 0.3 MG/DL (0.2-1.0); BLOOD UREA NITROGEN 24 mg/dL (7-18); CALCIUM 7.4 MG/DL (8.5-10.1); CARBON DIOXIDE 25 MMOL/L (21-32); CHLORIDE 113 MMOL/L (98-107); CREATININE 0.9 MG/DL (0.55-1.30); PHOSPHORUS 2.6 MG/DL (2.5-4.9); POTASSIUM 4.4 MMOL/L (3.5-5.1); SODIUM 146 MMOL/L (136-145)
--- NOTE | 2018-10-17 07:12 | NUR ---
HAND-OFF: Report given to Mariam Martinez RN.
--- NOTE | 2018-10-17 07:13 | NUR ---
NURSE NOTES: Report received from BOUBACAR Navarro. Pt is sleeping in bed. Lethargic. Open eyes spontaneously and show facial grimace to pain. Sinus rhythm on med surg nurse. Left side contracture noted. Old blood noted on mouth. Orally intubated. ETT 7.0/21cm at lip line. AC 18, TV 450, FiO2 35%, P 5. O2 sat 100%. No respiratory distress noted. G-tube in place receiving Glucerna 1.5 at 35cc/hr. No residual noted. Roberts in place draining to gravity. Right UA PICC line patent and asymptomatic. D5W is running at 50cc/hr. Bed in lowest position. Side rails up x3. Will resume plan of care.
--- NOTE | 2018-10-17 07:58 | NUR ---
RESPIRATORY NOTE: Received pt. on 840 vent. Vent settings are: A/C rate of 18, Vt 450, FI02 35%, PEEP +5. No respiratory distress noted, Sp02 @ 100%. Pt has tendency to bite lips/tongue that's why biteblock was used. Ambu bag @ bs. Vent plugged on red outlet. Will continue to monitor pt.
--- NOTE | 2018-10-17 07:58 | NUR ---
NURSE NOTES: Bite block was placed by RT since pt keeps biting lips and inside the mouth. No respiratory distress noted. O2 sat 100%. Will continue to monitor.
[2018-10-17 09:13] LABS: BASOPHILS % (AUTO) 0.8 % (0.0-2.0); EOSINOPHILS % (AUTO) 2.9 % (0.0-3.0); HEMATOCRIT 25.9 % (37.0-47.0); HEMOGLOBIN 8.5 G/DL (12.0-16.0); LYMPHOCYTES % (AUTO) 29.5 % (20.0-45.0); MEAN CORPUSCULAR VOLUME 91 FL (80-99); NEUTROPHILS % (AUTO) 59.8 % (45.0-75.0); PLATELET COUNT 216 K/UL (150-450); RED BLOOD COUNT 2.86 M/UL (4.20-5.40); RED CELL DISTRIBUTION WIDTH 13.7 % (11.6-14.8); WHITE BLOOD COUNT 5.8 K/UL (4.8-10.8)
[2018-10-17] MEDS: Pantoprazole Inj IVP SCH (09:20)
--- NOTE | 2018-10-17 09:24 | NUR ---
NURSE NOTES: H/H 8.5/25.9 confirmed by the lab draw. Turned and repositioned pt. Oral care done. Will continue to monitor.
--- NOTE | 2018-10-17 11:14 | NUR ---
NURSE NOTES: Caregiver at bedside. BP 98/34. Weaning trial not started since BP is on low side. RT will try weaning later when BP is up.
[2018-10-17] MEDS ORDERED: NS 275ml ONE (11:24)
--- NOTE | 2018-10-17 13:52 | NUR ---
NURSE NOTES: Pt is tolerating tube feeding. No residual noted. Caregiver at bedside. Afebrile. 98.6 axillary. Will continue to monitor.
[2018-10-17] MEDS: Vancomycin 1gm/D5W 275ml IVPB SCH ×2 (14:55)
--- NOTE | 2018-10-17 15:03 | NUR ---
NURSE NOTES: Microbiology reported that blood culture is positive for gram positive cocci in chain [address] Valentine. Addendum: 10/17/18 at 1506 by DAISY RYAN RN RN NURSE NOTES: Microbiology reported that blood culture is positive for gram positive cocci in chain [address] Valentine. No new orders.
--- NOTE | 2018-10-17 15:33 | Internal Med Progress Note ---
Subjective Date of Service: Oct 17, 2018 Physician Name Dimitrios Daly Attending Physician Tereso Toro MD Current Medications Medications (Trade) Dose Ordered Sig/Christopher Route PRN Reason Start Time Stop Time Status Last Admin Dose Admin Acetaminophen (Tylenol) 650 mg Q4H PRN GT Mild Pain/Temp > 101 10/13/18 04:30 11/11/18 04:29 10/14/18 05:38 Chlorhexidine Gluconate (Tatiana-Hex 2%) 1 applic DAILY@2000 TOPIC 10/13/18 20:00 11/12/18 19:59 10/16/18 21:05 Dextrose 1,000 ml @ 50 mls/hr Q20H IV 10/16/18 16:30 11/15/18 16:29 10/17/18 11:59 Dextrose (Dextrose 50%) 25 ml Q30M PRN IV Hypoglycemia 10/13/18 03:30 11/11/18 04:29 Dextrose (Dextrose 50%) 50 ml Q30M PRN IV Hypoglycemia 10/13/18 03:30 11/11/18 04:29 Haloperidol Lactate (Haldol) 5 mg Q6H PRN IM Agitation 10/14/18 13:30 11/13/18 13:29 10/14/18 15:37 Insulin Aspart (NovoLOG) EVERY 6 HOURS SUBQ 10/13/18 06:00 11/11/18 06:29 10/17/18 11:59 Meropenem 1 gm/ Sodium Chloride 55 ml @ 110 mls/hr Q12H IVPB 10/14/18 15:00 10/19/18 14:59 10/17/18 14:54 Norepinephrine Bitartrate 4 mg/ Dextrose 250 ml @ 0 mls/hr Q24H IV 10/13/18 09:00 11/12/18 08:59 10/13/18 14:21 Pantoprazole (Protonix) 40 mg DAILY IVP 10/14/18 09:00 11/13/18 08:59 10/17/18 09:20 Phenylephrine HCl 50 mg/Dextrose 250 ml @ 0 mls/hr Q24H IV 10/13/18 19:30 11/12/18 19:29 Sitagliptin Phosphate (Januvia) 100 mg ACBREAKFAST GT 10/13/18 06:30 11/11/18 06:29 10/17/18 05:54 Vancomycin HCl (Vanco rx to dose) 1 ea DAILY PRN MISC Per rx protocol 10/13/18 09:00 11/11/18 12:14 Vancomycin HCl 1 gm/Dextrose 275 ml @ 183.708 mls/hr Q24H IVPB 10/14/18 15:00 10/19/18 14:59 10/17/18 14:55 Allergies: Coded Allergies: No Known Allergies (Verified , 08/14/06) ROS Limited/Unobtainable: Yes Subjective 78 YO F admitted with pneumonia. Now sepsis and hypotension. Intubated and sedated. ICU. Cover for Int Med-Dr Toro. Continues on levophed and phenylphrine Objective Last Vital Signs Date Time Temp Pulse Resp B/P (MAP) Pulse Ox O2 Delivery O2 Flow Rate FiO2 10/17/18 15:00 69 20 110/38 (62) 100 10/17/18 14:18 35 10/17/18 12:00 Endotracheal Tube Mechanical Ventilator 10/17/18 12:00 98.6 10/12/18 20:00 5.0 5.0 Laboratory Tests Test 10/17/18 05:00 10/17/18 08:49 White Blood Count 6.5 K/UL (4.8-10.8) 5.8 K/UL (4.8-10.8) Red Blood Count 2.57 M/UL (4.20-5.40) L 2.86 M/UL (4.20-5.40) L Hemoglobin 7.7 G/DL (12.0-16.0) L 8.5 G/DL (12.0-16.0) L Hematocrit 23.4 % (37.0-47.0) L 25.9 % (37.0-47.0) L Mean Corpuscular Volume 91 FL (80-99) 91 FL (80-99) Mean Corpuscular Hemoglobin 29.9 PG (27.0-31.0) 29.6 PG (27.0-31.0) Mean Corpuscular Hemoglobin Concent 32.8 G/DL (32.0-36.0) 32.7 G/DL (32.0-36.0) Red Cell Distribution Width 13.2 % (11.6-14.8) 13.7 % (11.6-14.8) Platelet Count 211 K/UL (150-450) 216 K/UL (150-450) Mean Platelet Volume 5.8 FL (6.5-10.1) L 6.7 FL (6.5-10.1) Neutrophils (%) (Auto) % (45.0-75.0) 59.8 % (45.0-75.0) Lymphocytes (%) (Auto) % (20.0-45.0) 29.5 % (20.0-45.0) Monocytes (%) (Auto) % (1.0-10.0) 7.0 % (1.0-10.0) Eosinophils (%) (Auto) % (0.0-3.0) 2.9 % (0.0-3.0) Basophils (%) (Auto) % (0.0-2.0) 0.8 % (0.0-2.0) Differential Total Cells Counted 100 Neutrophils % (Manual) 69 % (45-75) Lymphocytes % (Manual) 21 % (20-45) Monocytes % (Manual) 7 % (1-10) Eosinophils % (Manual) 3 % (0-3) Basophils % (Manual) 0 % (0-2) Band Neutrophils 0 % (0-8) Platelet Estimate Adequate Platelet Morphology Normal Polychromasia 1+ Hypochromasia 1+ Sodium Level 146 MMOL/L (136-145) H Potassium Level 4.4 MMOL/L (3.5-5.1) Chloride Level 113 MMOL/L (98-107) H Carbon Dioxide Level 25 MMOL/L (21-32) Anion Gap 8 mmol/L (5-15) Blood Urea Nitrogen 24 mg/dL (7-18) H Creatinine 0.9 MG/DL (0.55-1.30) Estimat Glomerular Filtration Rate mL/min (>60) Glucose Level 117 MG/DL (74-106) H Calcium Level 7.4 MG/DL (8.5-10.1) L Phosphorus Level 2.6 MG/DL (2.5-4.9) Magnesium Level 2.1 MG/DL (1.8-2.4) Total Bilirubin 0.3 MG/DL (0.2-1.0) Aspartate Amino Transf (AST/SGOT) 33 U/L (15-37) Alanine Aminotransferase (ALT/SGPT) 25 U/L (12-78) Alkaline Phosphatase 76 U/L (46-116) Total Protein 5.2 G/DL (6.4-8.2) L Albumin 1.7 G/DL (3.4-5.0) L Globulin 3.5 g/dL Albumin/Globulin Ratio 0.5 (1.0-2.7) L Microbiology Date/Time Source Procedure Growth Status 10/14/18 18:40 Blood Blood Culture - Preliminary NO GROWTH AFTER 48 HOURS Resulted 10/14/18 20:50 Stool Stool Culture - Preliminary NORMAL FECAL JONATAN. Resulted 10/14/18 20:50 Stool Clostridium difficile Toxin Assay - Final Complete Intake and Output 10/16/18 10/17/18 19:00 07:00 Intake Total 1857.416 ml 1075 ml Output Total 790 ml 525 ml Balance 1067.416 ml 550 ml Intake Free Water 130 ml IV Total 1307.416 ml 655 ml Tube Feeding 420 ml 420 ml Output Urine Total 790 ml 525 ml # Bowel Movements 2 Objective General Appearance: WD/WN, moderate distress, lethargic EENT: PERRL/EOMI, normal ENT inspection Neck: non-tender, normal alignment, supple Cardiovascular: normal peripheral pulses, normal rate, regular rhythm, no gallop/murmur, no JVD Respiratory/Chest: Mech Vent; respiratory distress, crackles/rales, rhonchi - bilaterally, expiratory wheezing Abdomen: normal bowel sounds, non tender, soft, no organomegaly, no mass Neurologic: principal biostatistician II-XII grossly normal Skin: normal pigmentation, warm/dry Assessment/Plan Problem List: (1) COPD (chronic obstructive pulmonary disease) (2) Cerebral vascular disease (3) Acute respiratory failure Assessment & Plan: Mech Vent per pulmonary (4) Sepsis (5) Diabetes mellitus type II, uncontrolled (6) HTN (hypertension) (7) Hemiparesis affecting left side as late effect of cerebrovascular accident (8) Healthcare-associated pneumonia Assessment & Plan: Continue vanco and Meropenem per ID (9) Hypotension Assessment & Plan: due to sepsis; continue levophed (10) Sepsis (11) Diarrhea Assessment & Plan: stool for C. Diff and cult and sens (12) Elevated troponin Assessment & Plan: See cardiology note. (13) CHF (congestive heart failure) Assessment/Plan Discussed with Emily rios via telephone. Dimitrios Daly MD Oct 17, 2018 15:33
--- NOTE | 2018-10-17 15:56 | Pulmonolgy Critical Care Note ---
Critical Care - Asmt/Plan Problems: (1) Acute respiratory failure (2) Healthcare-associated pneumonia (3) Sepsis (4) Diabetes mellitus type II, uncontrolled (5) Feeding by G-tube (6) Hemiparesis affecting left side as late effect of cerebrovascular accident Respiratory: adjust tidal volume, monitor respiratory rate, adjust FIO2, CXR Cardiac: continue to monitor HR/BP Renal: F/U I&O, check electrolytes Infectious Disease: check cultures, continue antibiotics Gastrointestinal: continue feedings/current rate Endocrine: monitor blood sugar Hematologic: monitor H/H, transfuse if hgb<8.5 Neurologic: PRN Ativan, keep patient comfortable Prophylaxis: Protonix, Heparin Notes Reviewed: revenue collector, cardio Discussed with: nurses, consultants, special education case managerperformance manager - Objective Last 24 Hour Vital Signs Date Time Temp Pulse Resp B/P (MAP) Pulse Ox O2 Delivery O2 Flow Rate FiO2 10/17/18 15:42 61 18 35 10/17/18 15:00 69 20 110/38 (62) 100 10/17/18 14:18 95 23 35 10/17/18 14:00 73 26 104/35 (58) 91 10/17/18 13:00 64 19 92/30 (50) 100 10/17/18 12:00 35 10/17/18 12:00 Endotracheal Tube Mechanical Ventilator 10/17/18 12:00 98.6 62 18 92/30 (50) 100 10/17/18 11:24 61 10/17/18 11:23 78 23 35 10/17/18 11:00 72 26 98/34 (55) 100 10/17/18 10:00 65 22 97/38 (57) 100 10/17/18 09:36 69 21 35 10/17/18 09:00 72 22 92/41 (58) 100 10/17/18 08:26 74 10/17/18 08:00 35 10/17/18 08:00 Endotracheal Tube Mechanical Ventilator 10/17/18 08:00 99.6 77 28 101/48 (65) 100 10/17/18 07:52 62 18 35 10/17/18 07:00 66 19 90/25 (46) 100 10/17/18 06:00 76 22 94/40 (58) 100 10/17/18 05:10 77 24 35 10/17/18 05:00 76 27 96/41 (59) 100 10/17/18 04:00 Endotracheal Tube Mechanical Ventilator 10/17/18 04:00 35 10/17/18 04:00 98.6 78 20 108/36 (60) 95 10/17/18 04:00 78 10/17/18 03:00 76 21 102/38 (59) 97 10/17/18 02:43 76 22 35 10/17/18 02:00 76 22 95/36 (55) 98 10/17/18 01:00 76 27 98/38 (58) 97 10/17/18 00:49 78 24 35 10/17/18 00:00 72 10/17/18 00:00 35 10/17/18 00:00 98.3 71 24 92/35 (54) 99 10/17/18 00:00 Endotracheal Tube Mechanical Ventilator 10/16/18 23:11 67 18 35 10/16/18 23:00 71 22 90/40 (57) 99 10/16/18 22:00 75 23 94/51 (65) 97 10/16/18 21:16 78 26 35 10/16/18 21:00 72 20 106/48 (67) 98 10/16/18 20:00 98.9 71 23 94/64 (74) 98 10/16/18 20:00 35 10/16/18 20:00 Endotracheal Tube Mechanical Ventilator 10/16/18 20:00 71 10/16/18 19:30 78 94/64 10/16/18 19:15 77 25 35 10/16/18 19:00 76 28 116/44 (68) 99 10/16/18 18:00 63 20 102/34 (56) 99 10/16/18 17:00 67 18 89/35 (53) 97 10/16/18 16:39 78 25 35 10/16/18 16:00 99.6 80 23 120/62 (81) 93 10/16/18 16:00 Endotracheal Tube Mechanical Ventilator 10/16/18 16:00 35 Status: awake Condition: critical HEENT: atraumatic Neck: full ROM Lungs: clear Heart: HR/BP stable, regular Abdomen: soft, non-tender, feeding tube Extremities: edema Decubiti: location Micro: Microbiology Date/Time Source Procedure Growth Status 10/14/18 18:40 Blood Blood Culture - Preliminary NO GROWTH AFTER 48 HOURS Resulted 10/14/18 20:50 Stool Stool Culture - Preliminary NORMAL FECAL JONATAN. Resulted 10/14/18 20:50 Stool Clostridium difficile Toxin Assay - Final Complete Accucheck: 132 Critical Care - Subjective ROS Limited/Unobtainable: Yes ICU Day: 6 Intubation Day: 6 Condition: critical EKG Rhythm: Sinus Rhythm FI02: 35 Vent Support Breath Rate: 18 Vent Support Mode: AC Vent Tidal Volume: 450 Sputum Amount: Small PEEP: 5.0 PIP: 24 Tube Feeding Amount: 35 I&O: Intake and Output 10/16/18 10/17/18 19:00 07:00 Intake Total 1857.416 ml 1075 ml Output Total 790 ml 525 ml Balance 1067.416 ml 550 ml Intake Free Water 130 ml IV Total 1307.416 ml 655 ml Tube Feeding 420 ml 420 ml Output Urine Total 790 ml 525 ml # Bowel Movements 2 CXR: no change ET-Tube: 7.0 ET Position: 21 Labs: Laboratory Tests Test 10/17/18 05:00 10/17/18 08:49 White Blood Count 6.5 K/UL (4.8-10.8) 5.8 K/UL (4.8-10.8) Red Blood Count 2.57 M/UL (4.20-5.40) L 2.86 M/UL (4.20-5.40) L Hemoglobin 7.7 G/DL (12.0-16.0) L 8.5 G/DL (12.0-16.0) L Hematocrit 23.4 % (37.0-47.0) L 25.9 % (37.0-47.0) L Mean Corpuscular Volume 91 FL (80-99) 91 FL (80-99) Mean Corpuscular Hemoglobin 29.9 PG (27.0-31.0) 29.6 PG (27.0-31.0) Mean Corpuscular Hemoglobin Concent 32.8 G/DL (32.0-36.0) 32.7 G/DL (32.0-36.0) Red Cell Distribution Width 13.2 % (11.6-14.8) 13.7 % (11.6-14.8) Platelet Count 211 K/UL (150-450) 216 K/UL (150-450) Mean Platelet Volume 5.8 FL (6.5-10.1) L 6.7 FL (6.5-10.1) Neutrophils (%) (Auto) % (45.0-75.0) 59.8 % (45.0-75.0) Lymphocytes (%) (Auto) % (20.0-45.0) 29.5 % (20.0-45.0) Monocytes (%) (Auto) % (1.0-10.0) 7.0 % (1.0-10.0) Eosinophils (%) (Auto) % (0.0-3.0) 2.9 % (0.0-3.0) Basophils (%) (Auto) % (0.0-2.0) 0.8 % (0.0-2.0) Differential Total Cells Counted 100 Neutrophils % (Manual) 69 % (45-75) Lymphocytes % (Manual) 21 % (20-45) Monocytes % (Manual) 7 % (1-10) Eosinophils % (Manual) 3 % (0-3) Basophils % (Manual) 0 % (0-2) Band Neutrophils 0 % (0-8) Platelet Estimate Adequate Platelet Morphology Normal Polychromasia 1+ Hypochromasia 1+ Sodium Level 146 MMOL/L (136-145) H Potassium Level 4.4 MMOL/L (3.5-5.1) Chloride Level 113 MMOL/L (98-107) H Carbon Dioxide Level 25 MMOL/L (21-32) Anion Gap 8 mmol/L (5-15) Blood Urea Nitrogen 24 mg/dL (7-18) H Creatinine 0.9 MG/DL (0.55-1.30) Estimat Glomerular Filtration Rate mL/min (>60) Glucose Level 117 MG/DL (74-106) H Calcium Level 7.4 MG/DL (8.5-10.1) L Phosphorus Level 2.6 MG/DL (2.5-4.9) Magnesium Level 2.1 MG/DL (1.8-2.4) Total Bilirubin 0.3 MG/DL (0.2-1.0) Aspartate Amino Transf (AST/SGOT) 33 U/L (15-37) Alanine Aminotransferase (ALT/SGPT) 25 U/L (12-78) Alkaline Phosphatase 76 U/L (46-116) Total Protein 5.2 G/DL (6.4-8.2) L Albumin 1.7 G/DL (3.4-5.0) L Globulin 3.5 g/dL Albumin/Globulin Ratio 0.5 (1.0-2.7) L Barbara Sky MD Oct 17, 2018 15:56
--- NOTE | 2018-10-17 17:05 | Infectious Diseases Prog Note ---
Assessment/Plan Problems: (1) Aspiration pneumonia Assessment & Plan: due to pseudomonas aeruginosa and proteus mirabilis , continue vancomycin and meropenem empirically pending final sputum culture and blood culture , aspiration precaution with aggressive suctioning , keep HOB > 30 degree .monitor CXR (2) Sepsis Assessment & Plan: with gram positive cocci , due to the above , on wide spectrum antibiotics , await final blood culture (3) Acute respiratory failure Assessment & Plan: due to the above , intubated on mechanical ventilation , monitor CXR and ABG (4) Hypotension Assessment & Plan: suspect due to sepsis , continue antibiotics and hydration (5) Diabetes mellitus type II, uncontrolled Assessment & Plan: recommend tight glycemic control to keep blood glucose between 100-140 (6) JEFFY (acute kidney injury) Assessment & Plan: due to hypotension and sepsis, continue hydration, monitor renal function, and UOP Subjective ROS Limited/Unobtainable: Yes Allergies: Coded Allergies: No Known Allergies (Verified , 08/14/06) Subjective she was still intubated and on mechanical ventilation , in ICU , for close monitoring , no fever . no diarrhea or significant secretions, on weaning trials Objective Vital Signs Last 24 Hour Vital Signs Date Time Temp Pulse Resp B/P (MAP) Pulse Ox O2 Delivery O2 Flow Rate FiO2 10/17/18 16:00 70 21 100/39 (59) 100 10/17/18 16:00 35 10/17/18 15:42 61 18 35 10/17/18 15:00 69 20 110/38 (62) 100 10/17/18 14:18 95 23 35 10/17/18 14:00 73 26 104/35 (58) 91 10/17/18 13:00 64 19 92/30 (50) 100 10/17/18 12:00 35 10/17/18 12:00 Endotracheal Tube Mechanical Ventilator 10/17/18 12:00 98.6 62 18 92/30 (50) 100 10/17/18 11:24 61 10/17/18 11:23 78 23 35 10/17/18 11:00 72 26 98/34 (55) 100 10/17/18 10:00 65 22 97/38 (57) 100 10/17/18 09:36 69 21 35 10/17/18 09:00 72 22 92/41 (58) 100 10/17/18 08:26 74 10/17/18 08:00 35 10/17/18 08:00 Endotracheal Tube Mechanical Ventilator 10/17/18 08:00 99.6 77 28 101/48 (65) 100 10/17/18 07:52 62 18 35 10/17/18 07:00 66 19 90/25 (46) 100 10/17/18 06:00 76 22 94/40 (58) 100 10/17/18 05:10 77 24 35 10/17/18 05:00 76 27 96/41 (59) 100 10/17/18 04:00 Endotracheal Tube Mechanical Ventilator 10/17/18 04:00 35 10/17/18 04:00 98.6 78 20 108/36 (60) 95 10/17/18 04:00 78 10/17/18 03:00 76 21 102/38 (59) 97 10/17/18 02:43 76 22 35 10/17/18 02:00 76 22 95/36 (55) 98 10/17/18 01:00 76 27 98/38 (58) 97 10/17/18 00:49 78 24 35 10/17/18 00:00 72 10/17/18 00:00 35 10/17/18 00:00 98.3 71 24 92/35 (54) 99 10/17/18 00:00 Endotracheal Tube Mechanical Ventilator 10/16/18 23:11 67 18 35 10/16/18 23:00 71 22 90/40 (57) 99 10/16/18 22:00 75 23 94/51 (65) 97 10/16/18 21:16 78 26 35 10/16/18 21:00 72 20 106/48 (67) 98 10/16/18 20:00 98.9 71 23 94/64 (74) 98 10/16/18 20:00 35 10/16/18 20:00 Endotracheal Tube Mechanical Ventilator 10/16/18 20:00 71 10/16/18 19:30 78 94/64 10/16/18 19:15 77 25 35 10/16/18 19:00 76 28 116/44 (68) 99 10/16/18 18:00 63 20 102/34 (56) 99 Height (Feet): 5 Height (Inches): 4.00 Weight (Pounds): 139 General Appearance: WD/WN, no acute distress, cachetic HEENT: normocephalic, atraumatic, anicteric, mucous membranes moist, supple, no JVD, other - tounge laceration , and upper lip wound Respiratory/Chest: chest wall non-tender, no respiratory distress, no accessory muscle use, decreased breath sounds, crackles/rales Cardiovascular: normal peripheral pulses, normal rate, regular rhythm, no gallop/murmur, no JVD Abdomen: normal bowel sounds, soft, non tender, no organomegaly, non distended , no mass, no scars Extremities: no cyanosis, no clubbing Skin: no rash, no lesions, ulcers Lymphatic: no neck adenopathy, no groin adenopathy Musculoskeletal: no effusion, atrophy Microbiology Date/Time Source Procedure Growth Status 10/14/18 18:40 Blood Blood Culture - Preliminary NO GROWTH AFTER 48 HOURS Resulted 10/14/18 20:50 Stool Stool Culture - Preliminary NORMAL FECAL JONATAN. Resulted 10/14/18 20:50 Stool Clostridium difficile Toxin Assay - Final Complete Laboratory Tests Test 10/17/18 05:00 10/17/18 08:49 White Blood Count 6.5 K/UL (4.8-10.8) 5.8 K/UL (4.8-10.8) Red Blood Count 2.57 M/UL (4.20-5.40) L 2.86 M/UL (4.20-5.40) L Hemoglobin 7.7 G/DL (12.0-16.0) L 8.5 G/DL (12.0-16.0) L Hematocrit 23.4 % (37.0-47.0) L 25.9 % (37.0-47.0) L Mean Corpuscular Volume 91 FL (80-99) 91 FL (80-99) Mean Corpuscular Hemoglobin 29.9 PG (27.0-31.0) 29.6 PG (27.0-31.0) Mean Corpuscular Hemoglobin Concent 32.8 G/DL (32.0-36.0) 32.7 G/DL (32.0-36.0) Red Cell Distribution Width 13.2 % (11.6-14.8) 13.7 % (11.6-14.8) Platelet Count 211 K/UL (150-450) 216 K/UL (150-450) Mean Platelet Volume 5.8 FL (6.5-10.1) L 6.7 FL (6.5-10.1) Neutrophils (%) (Auto) % (45.0-75.0) 59.8 % (45.0-75.0) Lymphocytes (%) (Auto) % (20.0-45.0) 29.5 % (20.0-45.0) Monocytes (%) (Auto) % (1.0-10.0) 7.0 % (1.0-10.0) Eosinophils (%) (Auto) % (0.0-3.0) 2.9 % (0.0-3.0) Basophils (%) (Auto) % (0.0-2.0) 0.8 % (0.0-2.0) Differential Total Cells Counted 100 Neutrophils % (Manual) 69 % (45-75) Lymphocytes % (Manual) 21 % (20-45) Monocytes % (Manual) 7 % (1-10) Eosinophils % (Manual) 3 % (0-3) Basophils % (Manual) 0 % (0-2) Band Neutrophils 0 % (0-8) Platelet Estimate Adequate Platelet Morphology Normal Polychromasia 1+ Hypochromasia 1+ Sodium Level 146 MMOL/L (136-145) H Potassium Level 4.4 MMOL/L (3.5-5.1) Chloride Level 113 MMOL/L (98-107) H Carbon Dioxide Level 25 MMOL/L (21-32) Anion Gap 8 mmol/L (5-15) Blood Urea Nitrogen 24 mg/dL (7-18) H Creatinine 0.9 MG/DL (0.55-1.30) Estimat Glomerular Filtration Rate mL/min (>60) Glucose Level 117 MG/DL (74-106) H Calcium Level 7.4 MG/DL (8.5-10.1) L Phosphorus Level 2.6 MG/DL (2.5-4.9) Magnesium Level 2.1 MG/DL (1.8-2.4) Total Bilirubin 0.3 MG/DL (0.2-1.0) Aspartate Amino Transf (AST/SGOT) 33 U/L (15-37) Alanine Aminotransferase (ALT/SGPT) 25 U/L (12-78) Alkaline Phosphatase 76 U/L (46-116) Total Protein 5.2 G/DL (6.4-8.2) L Albumin 1.7 G/DL (3.4-5.0) L Globulin 3.5 g/dL Albumin/Globulin Ratio 0.5 (1.0-2.7) L Current Medications Medications (Trade) Dose Ordered Sig/Christopher Route PRN Reason Start Time Stop Time Status Last Admin Dose Admin Acetaminophen (Tylenol) 650 mg Q4H PRN GT Mild Pain/Temp > 101 10/13/18 04:30 11/11/18 04:29 10/14/18 05:38 Chlorhexidine Gluconate (Tatiana-Hex 2%) 1 applic DAILY@2000 TOPIC 10/13/18 20:00 11/12/18 19:59 10/16/18 21:05 Dextrose 1,000 ml @ 50 mls/hr Q20H IV 10/16/18 16:30 11/15/18 16:29 10/17/18 11:59 Dextrose (Dextrose 50%) 25 ml Q30M PRN IV Hypoglycemia 10/13/18 03:30 11/11/18 04:29 Dextrose (Dextrose 50%) 50 ml Q30M PRN IV Hypoglycemia 10/13/18 03:30 11/11/18 04:29 Haloperidol Lactate (Haldol) 5 mg Q6H PRN IM Agitation 10/14/18 13:30 11/13/18 13:29 10/14/18 15:37 Insulin Aspart (NovoLOG) EVERY 6 HOURS SUBQ 10/13/18 06:00 11/11/18 06:29 10/17/18 11:59 Meropenem 1 gm/ Sodium Chloride 55 ml @ 110 mls/hr Q12H IVPB 10/14/18 15:00 10/19/18 14:59 10/17/18 14:54 Norepinephrine Bitartrate 4 mg/ Dextrose 250 ml @ 0 mls/hr Q24H IV 10/13/18 09:00 11/12/18 08:59 10/13/18 14:21 Pantoprazole (Protonix) 40 mg DAILY IVP 10/14/18 09:00 11/13/18 08:59 10/17/18 09:20 Phenylephrine HCl 50 mg/Dextrose 250 ml @ 0 mls/hr Q24H IV 10/13/18 19:30 11/12/18 19:29 Sitagliptin Phosphate (Januvia) 100 mg ACBREAKFAST GT 10/13/18 06:30 11/11/18 06:29 10/17/18 05:54 Vancomycin HCl (Vanco rx to dose) 1 ea DAILY PRN MISC Per rx protocol 10/13/18 09:00 11/11/18 12:14 Vancomycin HCl 1 gm/Dextrose 275 ml @ 183.708 mls/hr Q24H IVPB 10/14/18 15:00 10/19/18 14:59 10/17/18 14:55 Porfirio Valentine M.D. Oct 17, 2018 17:05
--- NOTE | 2018-10-17 17:53 | NUR ---
NURSE NOTES: Turned and repositioned pt. BP 100/37. O2 sat 93% with the current vent setting. Will continue to monitor.
--- NOTE | 2018-10-17 19:04 | NUR ---
RESPIRATORY NOTE: PT. RECEIVED STABLE ON CMV WITH CURRENT SETTINGS. ALARMS ON AND AUDIBLE. VENT CIRCUIT AND SX TUBBING SECURE AND OUT OF THE WAY. ETT SECURE ON ANCHOR FAST. NO S/S OF RESPIRATORY DISTRESS NOTED AT THIS TIME. WILL CONTINUE TO MONITOR.
--- NOTE | 2018-10-17 19:11 | NUR ---
NURSE NOTES: Report received from BOUB[facility] [place]. Pt is sleeping in bed. Lethargic. Open eyes spontaneously and show facial grimace to pain. Sinus rhythm on cafeteria monitor. Left side contracture noted. Old blood noted on mouth. Orally intubated. ETT 7.0/21cm at lip line. AC 18, TV 450, FiO2 35%, P 5. O2 sat 100%. No respiratory distress noted. G-tube in place receiving Glucerna 1.5 at 35cc/hr. No residual noted. HOB 35 degrees[address] in [address] draining to gravity. Right UA PICC line patent and asymptomatic. D5W is running at 50cc/hr. Bed in lowest position. Side rails up x3. Will resume plan of care.
--- NOTE | 2018-10-17 19:14 | NUR ---
HAND-OFF: Report given to Jeremias Soares RN.
[2018-10-17] MEDS: Phenylephrine 50 MG in D5W 245 ML IV SCH (19:30)
[2018-10-17] MEDS: Dyna-Hex 2% Top Sol 2oz TOPIC SCH (20:51)
--- NOTE | 2018-10-17 21:30 | NUR ---
NURSE NOTES: Patient in stable condition, no s/sx of acute distress noted. Pt kept dry and clean.
--- NOTE | 2018-10-17 23:15 | NUR ---
NURSE NOTES: Oral given given. No s/sx of acute distress noted.
[2018-10-18] VITALS (26 sets, daily range): BP systolic 82–116; BP diastolic 29–56
[2018-10-18] MEDS: NovoLOG Insulin Flexpen SUBQ SCH ×5 (00:13→23:36)
--- NOTE | 2018-10-18 00:58 | NUR ---
NURSE NOTES: Oral sxn given, thin pale yellowish secretions noted. BS 131, 2 units of insulin given.
--- NOTE | 2018-10-18 02:34 | NUR ---
NURSE NOTES: Temp 99.3. CHG bath given. turned and repositioned. Tolerated well. large amt of drooling noted. Frequent suction provided. Linen and gown changed.
[2018-10-18] MEDS: Meropenem 1 GM in NS 55 ML IVPB SCH ×2 (03:42→14:47)
--- NOTE | 2018-10-18 05:05 | NUR ---
RESPIRATORY NOTE: PT. STABLE ON CME WITH CURRENT SETTING. CIRCUIT SECURE AND OUT OF THE WAY. PT SX PRN. NO S/S OF RESPIRATORY DISTRESS NOTED AT THIS TIME.
[2018-10-18 05:44] LABS: HEMATOCRIT 22.1 % (37.0-47.0); HEMOGLOBIN 7.3 G/DL (12.0-16.0); MEAN CORPUSCULAR VOLUME 91 FL (80-99); PLATELET COUNT 229 K/UL (150-450); RED BLOOD COUNT 2.43 M/UL (4.20-5.40); RED CELL DISTRIBUTION WIDTH 13.7 % (11.6-14.8); WHITE BLOOD COUNT 4.6 K/UL (4.8-10.8)
[2018-10-18 06:05] LABS: ALANINE AMINOTRANSFERASE 24 U/L (12-78); ALBUMIN 1.5 G/DL (3.4-5.0); ALBUMIN/GLOBULIN RATIO 0.5 (1.0-2.7); ALKALINE PHOSPHATASE 70 U/L (46-116); ANION GAP 6 mmol/L (5-15); ASPARTATE AMINO TRANSFERASE 30 U/L (15-37); BILIRUBIN,TOTAL 0.3 MG/DL (0.2-1.0); BLOOD UREA NITROGEN 21 mg/dL (7-18); CALCIUM 7.2 MG/DL (8.5-10.1); CARBON DIOXIDE 26 MMOL/L (21-32); CHLORIDE 110 MMOL/L (98-107); CREATININE 0.8 MG/DL (0.55-1.30); POTASSIUM 4.3 MMOL/L (3.5-5.1); SODIUM 142 MMOL/L (136-145)
--- NOTE | 2018-10-18 07:35 | NUR ---
RESPIRATORY NOTE: Received pt on ETT 7.0@ 23 cm lips line, secured by anchor fast, with current setting: AC 18-450-35% FiO2- peep of 5, saturates at 100%. Pt is lethargic, bite block in place to prevent tube biting, circuits is secured and out of the way. Pt is tolerating well the vent setting, SOB or acute resp distress noted. Alarms are set and audible, ambu bag is at bedside, vent is plugged into the red outlet. Will continue to monitor pt ans sxn as needed.
--- NOTE | 2018-10-18 07:47 | NUR ---
NURSE NOTES: Patient is resting in bed, asleep on ventilator , nonverbal, unable to follow commands, has left side weakness , Parkinson, has a weaning order but patient is unable to wean , will consult with rt . Patient is excreting alot saliva.
[2018-10-18 08:41] LABS: BASOPHILS % (AUTO) 0.7 % (0.0-2.0); EOSINOPHILS % (AUTO) 3.2 % (0.0-3.0); HEMATOCRIT 24.2 % (37.0-47.0); LYMPHOCYTES % (AUTO) 28.8 % (20.0-45.0); MEAN CORPUSCULAR VOLUME 91 FL (80-99); MONOCYTES % (AUTO) 7.5 % (1.0-10.0); NEUTROPHILS % (AUTO) 59.8 % (45.0-75.0); PLATELET COUNT 241 K/UL (150-450); RED BLOOD COUNT 2.66 M/UL (4.20-5.40); RED CELL DISTRIBUTION WIDTH 13.5 % (11.6-14.8)
[2018-10-18 08:55] LABS: ANION GAP 4 mmol/L (5-15); BLOOD UREA NITROGEN 21 mg/dL (7-18); CALCIUM 7.7 MG/DL (8.5-10.1); CARBON DIOXIDE 27 MMOL/L (21-32); CHLORIDE 110 MMOL/L (98-107); CREATININE 0.7 MG/DL (0.55-1.30); POTASSIUM 4.5 MMOL/L (3.5-5.1); SODIUM 141 MMOL/L (136-145)
[2018-10-18] MEDS: Pantoprazole Inj IVP SCH (09:00)
--- NOTE | 2018-10-18 09:26 | NUR ---
RESPIRATORY NOTE: Wean pt on SIMV 10- PS 15- 35% FiO2 at 0922, pt is just running the vent, no attempt to breath by herself. Put pt back on AC mode, with the same previous setting. Will continue to monitor pt.
--- NOTE | 2018-10-18 09:47 | NUR ---
RESPIRATORY NOTE: Titrated FiO2 down to 25%, saturates at 100%. BOUBACAR Hope made aware.
--- NOTE | 2018-10-18 10:05 | Pulmonolgy Critical Care Note ---
Critical Care - Asmt/Plan Problems: (1) Acute respiratory failure (2) Healthcare-associated pneumonia (3) Sepsis (4) Diabetes mellitus type II, uncontrolled (5) Feeding by G-tube (6) Hemiparesis affecting left side as late effect of cerebrovascular accident Respiratory: monitor respiratory rate, adjust FIO2, CXR Cardiac: continue pressors, continue to monitor HR/BP Renal: F/U I&O, check electrolytes Infectious Disease: check cultures Gastrointestinal: continue feedings/current rate, hold feedings Endocrine: check TSH Hematologic: monitor H/H Neurologic: PRN Morphine Prophylaxis: Protonix, Heparin Disposition: keep in ICU Notes 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, 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 Discussed with: nurses, consultants, case managersmanager privacy - Objective Last 24 Hour Vital Signs Date Time Temp Pulse Resp B/P (MAP) Pulse Ox O2 Delivery O2 Flow Rate FiO2 10/18/18 09:46 25 10/18/18 09:30 99 10/18/18 09:26 62 18 35 10/18/18 09:22 60 10 35 10/18/18 09:20 61 18 35 10/18/18 09:00 87/56 10/18/18 08:00 82 10/18/18 08:00 35 10/18/18 08:00 Endotracheal Tube Mechanical Ventilator 10/18/18 08:00 60 19 87/56 (66) 99 10/18/18 07:35 86 18 35 10/18/18 07:31 62 19 87/56 (66) 99 10/18/18 07:00 64 19 87/29 (48) 99 10/18/18 06:00 63 19 98/37 (57) 99 10/18/18 05:05 67 17 35 10/18/18 05:00 76 19 87/33 (51) 99 10/18/18 04:00 60 10/18/18 04:00 99.3 60 18 90/40 (57) 100 10/18/18 04:00 35 10/18/18 04:00 Endotracheal Tube Mechanical Ventilator 10/18/18 03:05 62 18 35 10/18/18 03:00 60 29 95/31 (52) 100 10/18/18 02:00 64 29 116/48 (70) 100 10/18/18 01:00 63 19 95/34 (54) 100 10/18/18 00:54 63 18 35 10/18/18 00:54 63 18 Mechanical Ventilator 35 10/18/18 00:00 Endotracheal Tube Mechanical Ventilator 10/18/18 00:00 99.6 72 22 108/32 (57) 100 10/17/18 23:08 70 22 35 10/17/18 23:00 71 19 110/32 (58) 100 10/17/18 22:00 71 19 99/31 (53) 100 10/17/18 21:03 80 30 35 10/17/18 20:00 61 10/17/18 20:00 35 10/17/18 20:00 Endotracheal Tube Mechanical Ventilator 10/17/18 19:30 72 108/32 10/17/18 19:04 85 31 35 10/17/18 19:00 60 18 97/32 (53) 100 10/17/18 19:00 73 17 115/33 (60) 100 10/17/18 18:00 60 18 97/32 (53) 100 10/17/18 17:00 98.7 71 23 100/37 (58) 99 10/17/18 16:58 59 17 35 10/17/18 16:00 70 21 100/39 (59) 100 10/17/18 16:00 Endotracheal Tube Mechanical Ventilator 10/17/18 16:00 35 10/17/18 15:47 73 10/17/18 15:42 61 18 35 10/17/18 15:00 69 20 110/38 (62) 100 10/17/18 14:18 95 23 35 10/17/18 14:00 73 26 104/35 (58) 91 10/17/18 13:00 64 19 92/30 (50) 100 10/17/18 12:00 35 10/17/18 12:00 Endotracheal Tube Mechanical Ventilator 10/17/18 12:00 98.6 62 18 92/30 (50) 100 10/17/18 11:24 61 10/17/18 11:23 78 23 35 10/17/18 11:00 72 26 98/34 (55) 100 Status: awake Condition: critical HEENT: atraumatic Neck: full ROM Lungs: chest wall tender Heart: HR/BP unstable, regular Abdomen: active bowel sounds, feeding tube Decubiti: location Accucheck: 145 Critical Care - Subjective ROS Limited/Unobtainable: Yes - 7 Condition: critical EKG Rhythm: Sinus Rhythm FI02: 25 Vent Support Breath Rate: 10 Vent Support Mode: AC Vent Tidal Volume: 450 Sputum Amount: None PEEP: 5.0 PIP: 24 Tube Feeding Amount: 35 I&O: Intake and Output 10/17/18 10/18/18 19:00 07:00 Intake Total 1450.000 ml 780 ml Output Total 600 ml 850 ml Balance 850.000 ml -70 ml Intake Free Water 100 ml 60 ml IV Total 930.000 ml 300 ml Tube Feeding 420 ml 420 ml Output Urine Total 600 ml 850 ml # Bowel Movements 1 ET-Tube: 7.0 ET Position: 23 Labs: Laboratory Tests Test 10/18/18 04:30 10/18/18 08:00 White Blood Count 4.6 K/UL (4.8-10.8) L 5.0 K/UL (4.8-10.8) Red Blood Count 2.43 M/UL (4.20-5.40) L 2.66 M/UL (4.20-5.40) L Hemoglobin 7.3 G/DL (12.0-16.0) L 8.0 G/DL (12.0-16.0) L Hematocrit 22.1 % (37.0-47.0) L 24.2 % (37.0-47.0) L Mean Corpuscular Volume 91 FL (80-99) 91 FL (80-99) Mean Corpuscular Hemoglobin 29.9 PG (27.0-31.0) 30.2 PG (27.0-31.0) Mean Corpuscular Hemoglobin Concent 32.8 G/DL (32.0-36.0) 33.2 G/DL (32.0-36.0) Red Cell Distribution Width 13.7 % (11.6-14.8) 13.5 % (11.6-14.8) Platelet Count 229 K/UL (150-450) 241 K/UL (150-450) Mean Platelet Volume 6.1 FL (6.5-10.1) L 6.2 FL (6.5-10.1) L Neutrophils (%) (Auto) % (45.0-75.0) 59.8 % (45.0-75.0) Lymphocytes (%) (Auto) % (20.0-45.0) 28.8 % (20.0-45.0) Monocytes (%) (Auto) % (1.0-10.0) 7.5 % (1.0-10.0) Eosinophils (%) (Auto) % (0.0-3.0) 3.2 % (0.0-3.0) H Basophils (%) (Auto) % (0.0-2.0) 0.7 % (0.0-2.0) Differential Total Cells Counted 100 Neutrophils % (Manual) 54 % (45-75) Lymphocytes % (Manual) 39 % (20-45) Monocytes % (Manual) 6 % (1-10) Eosinophils % (Manual) 1 % (0-3) Basophils % (Manual) 0 % (0-2) Band Neutrophils 0 % (0-8) Platelet Estimate Adequate Platelet Morphology Normal Hypochromasia 1+ Sodium Level 142 MMOL/L (136-145) 141 MMOL/L (136-145) Potassium Level 4.3 MMOL/L (3.5-5.1) 4.5 MMOL/L (3.5-5.1) Chloride Level 110 MMOL/L (98-107) H 110 MMOL/L (98-107) H Carbon Dioxide Level 26 MMOL/L (21-32) 27 MMOL/L (21-32) Anion Gap 6 mmol/L (5-15) 4 mmol/L (5-15) L Blood Urea Nitrogen 21 mg/dL (7-18) H 21 mg/dL (7-18) H Creatinine 0.8 MG/DL (0.55-1.30) 0.7 MG/DL (0.55-1.30) Estimat Glomerular Filtration Rate mL/min (>60) mL/min (>60) Glucose Level 111 MG/DL (74-106) H 119 MG/DL (74-106) H Calcium Level 7.2 MG/DL (8.5-10.1) L 7.7 MG/DL (8.5-10.1) L Total Bilirubin 0.3 MG/DL (0.2-1.0) Aspartate Amino Transf (AST/SGOT) 30 U/L (15-37) Alanine Aminotransferase (ALT/SGPT) 24 U/L (12-78) Alkaline Phosphatase 70 U/L (46-116) Total Protein 4.8 G/DL (6.4-8.2) L Albumin 1.5 G/DL (3.4-5.0) L Globulin 3.3 g/dL Albumin/Globulin Ratio 0.5 (1.0-2.7) L Barbara Sky MD Oct 18, 2018 10:05
--- NOTE | 2018-10-18 11:18 | NUR ---
NURSE NOTES: Patient has been turned and repositioned. No BM patient is currently clean. Caregiver is at bedside watching television and on her phone, has not engaged with patient care.
--- NOTE | 2018-10-18 11:43 | NUR ---
RD ASSESSMENT & RECOMMENDATIONS SEE CARE ACTIVITY FOR COMPLETE ASSESSMENT DAILY ESTIMATED NEEDS: Needs based on DM, critical care, sepsis 55.5kg 22-28 kcals/kg 7707-5625 total kcals 1.2-2 g protein/kg 66-111 g total protein 25-30 mL/kg 3765-6012 total fluid mLs NUTRITION DIAGNOSIS: 1) Swallowing difficulty R/T dysphagia as evidenced by pt on GT feeding CURRENT TF:Glucerna 1.5 @ 35ml/hr x 24 hrs ENTERAL NUTRITION RECOMMENDATIONS: Glucerna 1.5 @ 40ml/hr x 24 hrs to provide 960ml, 1440kcal, 79g pro, 729ml free water -Rec INCERASE Glucerna 1.5 to goal of 40ml/hr to better meet est needs -HOB over 30 degrees, flush per MD ADDITIONAL RECOMMENDATIONS: * Add JO-ANN BID for skin integrity (w/ healed sacral wound) * RE-calibrate bed scale for accurate CBW -> conflicting wts- Adm wt: 114#, EMR wt: 125#, Bed wt: 133# * Monitor HD stability- pressors held at this time -> W/ high dose pressors, rec trophic feeds of 5-10ml/hr * Lytes daily, replete as needed * Consider DC or lower IVF- edematous, BNP trend up, Na normalized.
--- NOTE | 2018-10-18 13:12 | General Progress Note ---
Assessment/Plan Problem List: (1) Toxic encephalopathy ICD Codes: G92 - Toxic encephalopathy SNOMED: 39844041 Assessment/Plan Haldol 5mg Im q6hr prn/agitation dw RN Subjective Neurologic/Psychiatric: Reports: anxiety Allergies: Coded Allergies: No Known Allergies (Verified , 08/14/06) Subjective the pt is more manageable and less agitated Objective Last 24 Hour Vital Signs Date Time Temp Pulse Resp B/P (MAP) Pulse Ox O2 Delivery O2 Flow Rate FiO2 10/18/18 11:03 70 18 25 10/18/18 09:46 25 10/18/18 09:30 99 10/18/18 09:26 62 18 35 10/18/18 09:22 60 10 35 10/18/18 09:20 61 18 35 10/18/18 09:00 87/56 10/18/18 08:00 82 10/18/18 08:00 35 10/18/18 08:00 Endotracheal Tube Mechanical Ventilator 10/18/18 08:00 60 19 87/56 (66) 99 10/18/18 07:35 86 18 35 10/18/18 07:31 62 19 87/56 (66) 99 10/18/18 07:00 64 19 87/29 (48) 99 10/18/18 06:00 63 19 98/37 (57) 99 10/18/18 05:05 67 17 35 10/18/18 05:00 76 19 87/33 (51) 99 10/18/18 04:00 60 10/18/18 04:00 99.3 60 18 90/40 (57) 100 10/18/18 04:00 35 10/18/18 04:00 Endotracheal Tube Mechanical Ventilator 10/18/18 03:05 62 18 35 10/18/18 03:00 60 29 95/31 (52) 100 10/18/18 02:00 64 29 116/48 (70) 100 10/18/18 01:00 63 19 95/34 (54) 100 10/18/18 00:54 63 18 35 10/18/18 00:54 63 18 Mechanical Ventilator 35 10/18/18 00:00 Endotracheal Tube Mechanical Ventilator 10/18/18 00:00 99.6 72 22 108/32 (57) 100 10/17/18 23:08 70 22 35 10/17/18 23:00 71 19 110/32 (58) 100 10/17/18 22:00 71 19 99/31 (53) 100 10/17/18 21:03 80 30 35 10/17/18 20:00 61 10/17/18 20:00 35 10/17/18 20:00 Endotracheal Tube Mechanical Ventilator 10/17/18 19:30 72 108/32 10/17/18 19:04 85 31 35 10/17/18 19:00 60 18 97/32 (53) 100 10/17/18 19:00 73 17 115/33 (60) 100 10/17/18 18:00 60 18 97/32 (53) 100 10/17/18 17:00 98.7 71 23 100/37 (58) 99 10/17/18 16:58 59 17 35 10/17/18 16:00 70 21 100/39 (59) 100 10/17/18 16:00 Endotracheal Tube Mechanical Ventilator 10/17/18 16:00 35 10/17/18 15:47 73 10/17/18 15:42 61 18 35 10/17/18 15:00 69 20 110/38 (62) 100 10/17/18 14:18 95 23 35 10/17/18 14:00 73 26 104/35 (58) 91 Intake and Output 10/17/18 10/18/18 19:00 07:00 Intake Total 1450.000 ml 780 ml Output Total 600 ml 850 ml Balance 850.000 ml -70 ml Intake Free Water 100 ml 60 ml IV Total 930.000 ml 300 ml Tube Feeding 420 ml 420 ml Output Urine Total 600 ml 850 ml # Bowel Movements 1 Laboratory Tests 10/18/18 04:30: White Blood Count 4.6L, Red Blood Count 2.43L, Hemoglobin 7.3L, Hematocrit 22.1L , Mean Corpuscular Volume 91, Mean Corpuscular Hemoglobin 29.9, Mean Corpuscular Hemoglobin Concent 32.8, Red Cell Distribution Width 13.7, Platelet Count 229, Mean Platelet Volume 6.1L, Neutrophils (%) (Auto) , Lymphocytes (%) ( Auto) , Monocytes (%) (Auto) , Eosinophils (%) (Auto) , Basophils (%) (Auto) , Differential Total Cells Counted 100, Neutrophils % (Manual) 54, Lymphocytes % ( Manual) 39, Monocytes % (Manual) 6, Eosinophils % (Manual) 1, Basophils % ( Manual) 0, Band Neutrophils 0, Platelet Estimate Adequate, Platelet Morphology Normal, Hypochromasia 1+, Sodium Level 142, Potassium Level 4.3, Chloride Level 110H, Carbon Dioxide Level 26, Anion Gap 6, Blood Urea Nitrogen 21H, Creatinine 0.8, Estimat Glomerular Filtration Rate , Glucose Level 111H, Calcium Level 7.2L , Total Bilirubin 0.3, Aspartate Amino Transf (AST/SGOT) 30, Alanine Aminotransferase (ALT/SGPT) 24, Alkaline Phosphatase 70, Total Protein 4.8L, Albumin 1.5L, Globulin 3.3, Albumin/Globulin Ratio 0.5L 10/18/18 08:00: White Blood Count 5.0, Red Blood Count 2.66L, Hemoglobin 8.0L, Hematocrit 24.2L , Mean Corpuscular Volume 91, Mean Corpuscular Hemoglobin 30.2, Mean Corpuscular Hemoglobin Concent 33.2, Red Cell Distribution Width 13.5, Platelet Count 241, Mean Platelet Volume 6.2L, Neutrophils (%) (Auto) 59.8, Lymphocytes ( %) (Auto) 28.8, Monocytes (%) (Auto) 7.5, Eosinophils (%) (Auto) 3.2H, Basophils (%) (Auto) 0.7, Sodium Level 141, Potassium Level 4.5, Chloride Level 110H, Carbon Dioxide Level 27, Anion Gap 4L, Blood Urea Nitrogen 21H, Creatinine 0.7, Estimat Glomerular Filtration Rate , Glucose Level 119H, Calcium Level 7.7L Height (Feet): 5 Height (Inches): 4.00 Weight (Pounds): 137 General Appearance: lethargic, confused, agitated Trever Easley MD Oct 18, 2018 13:12
--- NOTE | 2018-10-18 13:13 | NUR ---
CASE MANAGEMENT: REVIEW SI: SEPSIS . PNA T 99.3 HR 60 RR 18 BP 87/33 SAT 99% MECH VENT FIO2 35 H/H 8.0/24.2 BUN 21 IS: VANCO IV Q24HR MEROPENEM IV Q12HR LEVOPHED IV Q24HR ICU STATUS DCP: PATIENT IS FROM [facility]
--- NOTE | 2018-10-18 14:00 | NUR ---
NURSE NOTES: Patient has been repositioned and turned, oral care done. No signs of respiratory distress.
[2018-10-18] MEDS: Vancomycin 1gm/D5W 275ml IVPB SCH ×2 (15:00)
--- NOTE | 2018-10-18 16:23 | Infectious Diseases Prog Note ---
Assessment/Plan Problems: (1) Aspiration pneumonia Assessment & Plan: due to pseudomonas aeruginosa and proteus mirabilis , continue meropenem for two weeks , aspiration precaution with aggressive suctioning , keep HOB > 30 degree .monitor CXR (2) Sepsis Assessment & Plan: with gram positive cocci reported initially but now changed to gram positive rods , already on wide spectrum antibiotics pending final blood culture (3) Acute respiratory failure Assessment & Plan: due to the above , intubated on mechanical ventilation , monitor CXR and ABG. pulmonary is following, failed weaning trials so far (4) Diabetes mellitus type II, uncontrolled Assessment & Plan: recommend tight glycemic control to keep blood glucose between 100-140 (5) JEFFY (acute kidney injury) Assessment & Plan: improved, due to hypotension and sepsis, continue hydration , monitor renal function, and UOP Subjective ROS Limited/Unobtainable: Yes Allergies: Coded Allergies: No Known Allergies (Verified , 08/14/06) Subjective she was still intubated , on mechanical ventilation in ICU , has low grade fever. no diarrhea , but significant secretions, on weaning trials. Objective Vital Signs Last 24 Hour Vital Signs Date Time Temp Pulse Resp B/P (MAP) Pulse Ox O2 Delivery O2 Flow Rate FiO2 10/18/18 15:00 71 30 25 10/18/18 12:53 64 18 25 10/18/18 11:03 70 18 25 10/18/18 09:46 25 10/18/18 09:30 99 10/18/18 09:26 62 18 35 10/18/18 09:22 60 10 35 10/18/18 09:20 61 18 35 10/18/18 09:00 87/56 10/18/18 08:00 82 10/18/18 08:00 35 10/18/18 08:00 Endotracheal Tube Mechanical Ventilator 10/18/18 08:00 60 19 87/56 (66) 99 10/18/18 07:35 86 18 35 10/18/18 07:31 62 19 87/56 (66) 99 10/18/18 07:00 64 19 87/29 (48) 99 10/18/18 06:00 63 19 98/37 (57) 99 10/18/18 05:05 67 17 35 10/18/18 05:00 76 19 87/33 (51) 99 10/18/18 04:00 60 10/18/18 04:00 99.3 60 18 90/40 (57) 100 10/18/18 04:00 35 10/18/18 04:00 Endotracheal Tube Mechanical Ventilator 10/18/18 03:05 62 18 35 10/18/18 03:00 60 29 95/31 (52) 100 10/18/18 02:00 64 29 116/48 (70) 100 10/18/18 01:00 63 19 95/34 (54) 100 10/18/18 00:54 63 18 35 10/18/18 00:54 63 18 Mechanical Ventilator 35 10/18/18 00:00 Endotracheal Tube Mechanical Ventilator 10/18/18 00:00 99.6 72 22 108/32 (57) 100 10/17/18 23:08 70 22 35 10/17/18 23:00 71 19 110/32 (58) 100 10/17/18 22:00 71 19 99/31 (53) 100 10/17/18 21:03 80 30 35 10/17/18 20:00 61 10/17/18 20:00 35 10/17/18 20:00 Endotracheal Tube Mechanical Ventilator 10/17/18 19:30 72 108/32 10/17/18 19:04 85 31 35 10/17/18 19:00 60 18 97/32 (53) 100 10/17/18 19:00 73 17 115/33 (60) 100 10/17/18 18:00 60 18 97/32 (53) 100 10/17/18 17:00 98.7 71 23 100/37 (58) 99 10/17/18 16:58 59 17 35 Height (Feet): 5 Height (Inches): 4.00 Weight (Pounds): 137 General Appearance: WD/WN, no acute distress, cachetic HEENT: normocephalic, atraumatic, anicteric, mucous membranes moist, PERRL Respiratory/Chest: chest wall non-tender, no respiratory distress, no accessory muscle use, decreased breath sounds, crackles/rales Cardiovascular: normal peripheral pulses, normal rate, regular rhythm, no gallop/murmur, no JVD Abdomen: normal bowel sounds, soft, non tender, no organomegaly, non distended , no mass, no scars Extremities: no cyanosis, no clubbing Skin: no rash, no lesions, ulcers Neurologic/Psychiatric: alert, unresponsiveness Lymphatic: no neck adenopathy, no groin adenopathy Musculoskeletal: no effusion, atrophy, other - contraction Laboratory Tests Test 10/18/18 04:30 10/18/18 08:00 White Blood Count 4.6 K/UL (4.8-10.8) L 5.0 K/UL (4.8-10.8) Red Blood Count 2.43 M/UL (4.20-5.40) L 2.66 M/UL (4.20-5.40) L Hemoglobin 7.3 G/DL (12.0-16.0) L 8.0 G/DL (12.0-16.0) L Hematocrit 22.1 % (37.0-47.0) L 24.2 % (37.0-47.0) L Mean Corpuscular Volume 91 FL (80-99) 91 FL (80-99) Mean Corpuscular Hemoglobin 29.9 PG (27.0-31.0) 30.2 PG (27.0-31.0) Mean Corpuscular Hemoglobin Concent 32.8 G/DL (32.0-36.0) 33.2 G/DL (32.0-36.0) Red Cell Distribution Width 13.7 % (11.6-14.8) 13.5 % (11.6-14.8) Platelet Count 229 K/UL (150-450) 241 K/UL (150-450) Mean Platelet Volume 6.1 FL (6.5-10.1) L 6.2 FL (6.5-10.1) L Neutrophils (%) (Auto) % (45.0-75.0) 59.8 % (45.0-75.0) Lymphocytes (%) (Auto) % (20.0-45.0) 28.8 % (20.0-45.0) Monocytes (%) (Auto) % (1.0-10.0) 7.5 % (1.0-10.0) Eosinophils (%) (Auto) % (0.0-3.0) 3.2 % (0.0-3.0) H Basophils (%) (Auto) % (0.0-2.0) 0.7 % (0.0-2.0) Differential Total Cells Counted 100 Neutrophils % (Manual) 54 % (45-75) Lymphocytes % (Manual) 39 % (20-45) Monocytes % (Manual) 6 % (1-10) Eosinophils % (Manual) 1 % (0-3) Basophils % (Manual) 0 % (0-2) Band Neutrophils 0 % (0-8) Platelet Estimate Adequate Platelet Morphology Normal Hypochromasia 1+ Sodium Level 142 MMOL/L (136-145) 141 MMOL/L (136-145) Potassium Level 4.3 MMOL/L (3.5-5.1) 4.5 MMOL/L (3.5-5.1) Chloride Level 110 MMOL/L (98-107) H 110 MMOL/L (98-107) H Carbon Dioxide Level 26 MMOL/L (21-32) 27 MMOL/L (21-32) Anion Gap 6 mmol/L (5-15) 4 mmol/L (5-15) L Blood Urea Nitrogen 21 mg/dL (7-18) H 21 mg/dL (7-18) H Creatinine 0.8 MG/DL (0.55-1.30) 0.7 MG/DL (0.55-1.30) Estimat Glomerular Filtration Rate mL/min (>60) mL/min (>60) Glucose Level 111 MG/DL (74-106) H 119 MG/DL (74-106) H Calcium Level 7.2 MG/DL (8.5-10.1) L 7.7 MG/DL (8.5-10.1) L Total Bilirubin 0.3 MG/DL (0.2-1.0) Aspartate Amino Transf (AST/SGOT) 30 U/L (15-37) Alanine Aminotransferase (ALT/SGPT) 24 U/L (12-78) Alkaline Phosphatase 70 U/L (46-116) Total Protein 4.8 G/DL (6.4-8.2) L Albumin 1.5 G/DL (3.4-5.0) L Globulin 3.3 g/dL Albumin/Globulin Ratio 0.5 (1.0-2.7) L Current Medications Medications (Trade) Dose Ordered Sig/Christopher Route PRN Reason Start Time Stop Time Status Last Admin Dose Admin Acetaminophen (Tylenol) 650 mg Q4H PRN GT Mild Pain/Temp > 101 1/2/19 04:30 11/11/18 04:29 10/14/18 05:38 Chlorhexidine Gluconate (Tatiana-Hex 2%) 1 applic DAILY@2000 TOPIC 10/13/18 20:00 11/12/18 19:59 10/17/18 20:51 Dextrose 1,000 ml @ 50 mls/hr Q20H IV 10/16/18 16:30 11/15/18 16:29 10/18/18 04:46 Dextrose (Dextrose 50%) 25 ml Q30M PRN IV Hypoglycemia 10/13/18 03:30 11/11/18 04:29 Dextrose (Dextrose 50%) 50 ml Q30M PRN IV Hypoglycemia 10/13/18 03:30 11/11/18 04:29 Haloperidol Lactate (Haldol) 5 mg Q6H PRN IM Agitation 10/14/18 13:30 11/13/18 13:29 10/14/18 15:37 Insulin Aspart (NovoLOG) EVERY 6 HOURS SUBQ 10/13/18 06:00 11/11/18 06:29 10/18/18 14:47 Meropenem 1 gm/ Sodium Chloride 55 ml @ 110 mls/hr Q12H IVPB 10/14/18 15:00 10/23/18 16:00 10/18/18 14:47 Norepinephrine Bitartrate 4 mg/ Dextrose 250 ml @ 0 mls/hr Q24H IV 10/13/18 09:00 11/12/18 08:59 10/13/18 14:21 Pantoprazole (Protonix) 40 mg DAILY IVP 10/14/18 09:00 11/13/18 08:59 10/18/18 09:00 Phenylephrine HCl 50 mg/Dextrose 250 ml @ 0 mls/hr Q24H IV 10/13/18 19:30 11/12/18 19:29 Sitagliptin Phosphate (Januvia) 100 mg ACBREAKFAST GT 10/13/18 06:30 11/11/18 06:29 10/18/18 06:34 Vancomycin HCl (Vanco rx to dose) 1 ea DAILY PRN MISC Per rx protocol 10/13/18 09:00 11/11/18 12:14 Vancomycin HCl 1 gm/Dextrose 275 ml @ 183.708 mls/hr Q24H IVPB 10/14/18 15:00 10/23/18 16:00 10/17/18 14:55 Porfirio Valentine M.D. Oct 18, 2018 16:23
--- NOTE | 2018-10-18 17:20 | NUR ---
NURSE NOTES: Previously this earlier morning RT attempted to wean patient , she failed in 2min.
--- NOTE | 2018-10-18 17:20 | NUR ---
NURSE NOTES: Patient has been cleaned , had one bm that was thick and dark and very pasty.
--- NOTE | 2018-10-18 18:26 | Internal Med Progress Note ---
Subjective Date of Service: Oct 18, 2018 Physician Name Dimitrios Daly Attending Physician Tereso Toro MD Current Medications Medications (Trade) Dose Ordered Sig/Christopher Route PRN Reason Start Time Stop Time Status Last Admin Dose Admin Acetaminophen (Tylenol) 650 mg Q4H PRN GT Mild Pain/Temp > 101 10/13/18 04:30 11/11/18 04:29 10/14/18 05:38 Chlorhexidine Gluconate (Tatiana-Hex 2%) 1 applic DAILY@2000 TOPIC 10/13/18 20:00 11/12/18 19:59 10/17/18 20:51 Dextrose 1,000 ml @ 50 mls/hr Q20H IV 10/16/18 16:30 11/15/18 16:29 10/18/18 04:46 Dextrose (Dextrose 50%) 25 ml Q30M PRN IV Hypoglycemia 10/13/18 03:30 11/11/18 04:29 Dextrose (Dextrose 50%) 50 ml Q30M PRN IV Hypoglycemia 10/13/18 03:30 11/11/18 04:29 Haloperidol Lactate (Haldol) 5 mg Q6H PRN IM Agitation 10/14/18 13:30 11/13/18 13:29 10/14/18 15:37 Insulin Aspart (NovoLOG) EVERY 6 HOURS SUBQ 10/13/18 06:00 11/11/18 06:29 10/18/18 17:15 Meropenem 1 gm/ Sodium Chloride 55 ml @ 110 mls/hr Q12H IVPB 10/14/18 15:00 10/23/18 16:00 10/18/18 14:47 Norepinephrine Bitartrate 4 mg/ Dextrose 250 ml @ 0 mls/hr Q24H IV 10/13/18 09:00 11/12/18 08:59 10/13/18 14:21 Pantoprazole (Protonix) 40 mg DAILY IVP 10/14/18 09:00 11/13/18 08:59 10/18/18 09:00 Phenylephrine HCl 50 mg/Dextrose 250 ml @ 0 mls/hr Q24H IV 10/13/18 19:30 11/12/18 19:29 Sitagliptin Phosphate (Januvia) 100 mg ACBREAKFAST GT 10/13/18 06:30 11/11/18 06:29 10/18/18 06:34 Vancomycin HCl (Vanco rx to dose) 1 ea DAILY PRN MISC Per rx protocol 10/13/18 09:00 11/11/18 12:14 Vancomycin HCl 1 gm/Dextrose 275 ml @ 183.708 mls/hr Q24H IVPB 10/14/18 15:00 10/23/18 16:00 10/18/18 15:00 Allergies: Coded Allergies: No Known Allergies (Verified , 08/14/06) ROS Limited/Unobtainable: Yes Subjective 78 YO F admitted with pneumonia. Now sepsis and hypotension. Intubated and sedated. ICU. Cover for Int Med-Dr Toro. Continues on levophed and phenylphrine Objective Last Vital Signs Date Time Temp Pulse Resp B/P (MAP) Pulse Ox O2 Delivery O2 Flow Rate FiO2 10/18/18 17:10 67 21 25 10/18/18 09:30 99 10/18/18 09:00 87/56 10/18/18 08:00 Endotracheal Tube Mechanical Ventilator 10/18/18 04:00 99.3 10/12/18 20:00 5.0 5.0 Laboratory Tests Test 10/18/18 04:30 10/18/18 08:00 White Blood Count 4.6 K/UL (4.8-10.8) L 5.0 K/UL (4.8-10.8) Red Blood Count 2.43 M/UL (4.20-5.40) L 2.66 M/UL (4.20-5.40) L Hemoglobin 7.3 G/DL (12.0-16.0) L 8.0 G/DL (12.0-16.0) L Hematocrit 22.1 % (37.0-47.0) L 24.2 % (37.0-47.0) L Mean Corpuscular Volume 91 FL (80-99) 91 FL (80-99) Mean Corpuscular Hemoglobin 29.9 PG (27.0-31.0) 30.2 PG (27.0-31.0) Mean Corpuscular Hemoglobin Concent 32.8 G/DL (32.0-36.0) 33.2 G/DL (32.0-36.0) Red Cell Distribution Width 13.7 % (11.6-14.8) 13.5 % (11.6-14.8) Platelet Count 229 K/UL (150-450) 241 K/UL (150-450) Mean Platelet Volume 6.1 FL (6.5-10.1) L 6.2 FL (6.5-10.1) L Neutrophils (%) (Auto) % (45.0-75.0) 59.8 % (45.0-75.0) Lymphocytes (%) (Auto) % (20.0-45.0) 28.8 % (20.0-45.0) Monocytes (%) (Auto) % (1.0-10.0) 7.5 % (1.0-10.0) Eosinophils (%) (Auto) % (0.0-3.0) 3.2 % (0.0-3.0) H Basophils (%) (Auto) % (0.0-2.0) 0.7 % (0.0-2.0) Differential Total Cells Counted 100 Neutrophils % (Manual) 54 % (45-75) Lymphocytes % (Manual) 39 % (20-45) Monocytes % (Manual) 6 % (1-10) Eosinophils % (Manual) 1 % (0-3) Basophils % (Manual) 0 % (0-2) Band Neutrophils 0 % (0-8) Platelet Estimate Adequate Platelet Morphology Normal Hypochromasia 1+ Sodium Level 142 MMOL/L (136-145) 141 MMOL/L (136-145) Potassium Level 4.3 MMOL/L (3.5-5.1) 4.5 MMOL/L (3.5-5.1) Chloride Level 110 MMOL/L (98-107) H 110 MMOL/L (98-107) H Carbon Dioxide Level 26 MMOL/L (21-32) 27 MMOL/L (21-32) Anion Gap 6 mmol/L (5-15) 4 mmol/L (5-15) L Blood Urea Nitrogen 21 mg/dL (7-18) H 21 mg/dL (7-18) H Creatinine 0.8 MG/DL (0.55-1.30) 0.7 MG/DL (0.55-1.30) Estimat Glomerular Filtration Rate mL/min (>60) mL/min (>60) Glucose Level 111 MG/DL (74-106) H 119 MG/DL (74-106) H Calcium Level 7.2 MG/DL (8.5-10.1) L 7.7 MG/DL (8.5-10.1) L Total Bilirubin 0.3 MG/DL (0.2-1.0) Aspartate Amino Transf (AST/SGOT) 30 U/L (15-37) Alanine Aminotransferase (ALT/SGPT) 24 U/L (12-78) Alkaline Phosphatase 70 U/L (46-116) Total Protein 4.8 G/DL (6.4-8.2) L Albumin 1.5 G/DL (3.4-5.0) L Globulin 3.3 g/dL Albumin/Globulin Ratio 0.5 (1.0-2.7) L Intake and Output 10/17/18 10/18/18 19:00 07:00 Intake Total 1450.000 ml 780 ml Output Total 600 ml 850 ml Balance 850.000 ml -70 ml Intake Free Water 100 ml 60 ml IV Total 930.000 ml 300 ml Tube Feeding 420 ml 420 ml Output Urine Total 600 ml 850 ml # Bowel Movements 1 Objective General Appearance: WD/WN, moderate distress, lethargic EENT: PERRL/EOMI, normal ENT inspection Neck: non-tender, normal alignment, supple Cardiovascular: normal peripheral pulses, normal rate, regular rhythm, no gallop/murmur, no JVD Respiratory/Chest: Mech Vent; respiratory distress, crackles/rales, rhonchi - bilaterally, expiratory wheezing Abdomen: normal bowel sounds, non tender, soft, no organomegaly, no mass 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 Diff and cult and sens (12) Elevated troponin Assessment & Plan: See cardiology note. (13) CHF (congestive heart failure) Assessment/Plan Discussed with Emily rios via telephone. Dimitrios Daly MD Oct 18, 2018 18:26
[2018-10-18] MEDS: Phenylephrine 50 MG in D5W 245 ML IV SCH (19:30)
--- NOTE | 2018-10-18 19:30 | NUR ---
NURSE NOTES: Received pt in no acute distress. Opens eyes spontaneously but non verbal due to ETT. Appears to be tolerating current vent parameters; fiO2 1.0, saturating 100%., secretions pinkish, thick, copious via ETT and orally. Contracted on all 4 extremities. NSR on the scope; Bp stable; afebrile. GTF with Glucerna 1.5 running at 35ml/h with 0 residuals. FC patent; UOP 40-60ml/h.PICC on JOLEEN intact, IVF of D5W infusing 50ml/h. Will continue to monitor
[2018-10-18] MEDS: Dyna-Hex 2% Top Sol 2oz TOPIC SCH (20:20)
--- NOTE | 2018-10-18 22:00 | NUR ---
NURSE NOTES: No bleeding from the oral cavity, Oral care and suctioning done. Still with copious oral secretions.
[2018-10-19] VITALS (24 sets, daily range): BP systolic 90–116; BP diastolic 31–62
--- NOTE | 2018-10-19 | NUR ---
NURSE NOTES: Asleep, calm, VSS. No distress, afebrile
--- NOTE | 2018-10-19 02:00 | NUR ---
NURSE NOTES: Continues to sleep; VSS, no distress.
--- NOTE | 2018-10-19 04:00 | NUR ---
NURSE NOTES: Incontinent of mod amt of formed stool. Complete bath given. GT site dressing changed. PICC line patent, dressing dry and intact. No new skin breakdown. Good UOP. VSS, afebrile.
[2018-10-19] MEDS: Meropenem 1 GM in NS 55 ML IVPB SCH ×2 (04:14→15:19)
[2018-10-19] MEDS: NovoLOG Insulin Flexpen SUBQ SCH ×3 (05:56→18:00)
--- NOTE | 2018-10-19 07:01 | NUR ---
RESPIRATORY NOTE: Received pt on current settings, intubated with ETT 7.0, placed at 22cm at the lip. no redness or skin breakdowns visible around facial area. bite block is currently in place. alarms are on and audible with vent plugged into redoutlet. ambu bag is at bedside. will cont to monitor.
[2018-10-19 07:07] LABS: HEMATOCRIT 22.9 % (37.0-47.0); HEMOGLOBIN 7.7 G/DL (12.0-16.0); MEAN CORPUSCULAR VOLUME 89 FL (80-99); PLATELET COUNT 289 K/UL (150-450); RED BLOOD COUNT 2.56 M/UL (4.20-5.40); WHITE BLOOD COUNT 4.6 K/UL (4.8-10.8)
[2018-10-19 07:20] LABS: ALANINE AMINOTRANSFERASE 28 U/L (12-78); ALBUMIN 1.6 G/DL (3.4-5.0); ALBUMIN/GLOBULIN RATIO 0.4 (1.0-2.7); ALKALINE PHOSPHATASE 68 U/L (46-116); ANION GAP 5 mmol/L (5-15); ASPARTATE AMINO TRANSFERASE 27 U/L (15-37); BILIRUBIN,TOTAL 0.4 MG/DL (0.2-1.0); BLOOD UREA NITROGEN 18 mg/dL (7-18); CARBON DIOXIDE 27 MMOL/L (21-32); CHLORIDE 109 MMOL/L (98-107); CREATININE 0.9 MG/DL (0.55-1.30); PHOSPHORUS 2.2 MG/DL (2.5-4.9); POTASSIUM 4.3 MMOL/L (3.5-5.1); SODIUM 141 MMOL/L (136-145)
--- NOTE | 2018-10-19 07:25 | NUR ---
HAND-OFF: Report given to Paz HAMLIN.
--- NOTE | 2018-10-19 08:00 | NUR ---
NURSE NOTES: Received pt from BOUBACAR Navarro. Pt in no acute distress. Opens eyes spontaneously but non verbal due to ETT. Appears to be tolerating current vent parameters; saturating 100%., secretions pinkish, thick, copious via ETT and orally. Contracted on all 4 extremities. NSR on the scope; Bp stable; afebrile. GTF with Glucerna 1.5 running at 35ml/h with 0 residuals. FC patent; UOP 40-60ml/h.PICC on JOLEEN intact, IVF of D5W infusing 50ml/h. Will continue to monitor
[2018-10-19] MEDS: Pantoprazole Inj IVP SCH (09:18)
--- NOTE | 2018-10-19 09:30 | NUR ---
RADIOLOGY DEPT CHEST X-RAY DONE.-P.DYE
--- NOTE | 2018-10-19 10:00 | NUR ---
NURSE NOTES: Cleaned, repositioned pt, oral care provided. VSS. sitter at bedside. will continue to monitor.
--- NOTE | 2018-10-19 12:00 | NUR ---
NURSE NOTES: Turned and repositioned pt. Dr. Valentine rounded on pt. No new orders.
--- NOTE | 2018-10-19 12:32 | NUR ---
CASE MANAGEMENT: REVIEW SI: SEPSIS . PNA T 98.2 HR 74 RR 20 BP 90/42 SAT 98% MECH VENT FIO2 25 WBC 4.6 H/H 7.7/22.9 IS: VANCO IV Q24HR MEROPENEM IV Q12HR LEVOPHED IV Q24HR TRANSFUSION PRCB ICU STATUS DCP: PATIENT IS FROM [facility]
--- NOTE | 2018-10-19 12:53 | Cardiology Progress Note ---
Assessment/Plan Assessment/Plan 1. Respiratory failure. 2. Bilateral pneumoniae. 3. History of cerebrovascular accident. 4. Azotemia and renal insufficiency. 5. Anemia. 6. Relative thrombocytopenia 7. tele artifact due to shaking ? related to cough?? iv abx pressor as needed vent support tele observation sinsu occasioanl artifact cxr noted Subjective ROS Limited/Unobtainable: Yes Objective Last 24 Hour Vital Signs Date Time Temp Pulse Resp B/P (MAP) Pulse Ox O2 Delivery O2 Flow Rate FiO2 10/19/18 10:58 73 18 25 10/19/18 09:16 68 18 25 10/19/18 09:00 90/42 10/19/18 08:00 74 10/19/18 08:00 98.2 74 20 90/42 (58) 98 10/19/18 08:00 25 10/19/18 08:00 Endotracheal Tube Mechanical Ventilator 10/19/18 07:00 65 19 93/43 (60) 99 10/19/18 06:58 65 18 25 10/19/18 06:04 65 19 93/43 (60) 99 10/19/18 05:59 66 18 25 10/19/18 05:00 98.4 67 24 107/47 (67) 98 10/19/18 04:00 73 10/19/18 04:00 25 10/19/18 04:00 87 18 101/39 (59) 100 10/19/18 04:00 Endotracheal Tube Mechanical Ventilator 10/19/18 03:02 71 18 25 10/19/18 03:00 72 18 99/48 (65) 100 10/19/18 02:00 73 18 95/35 (55) 100 10/19/18 01:09 64 18 25 10/19/18 01:00 67 18 91/35 (53) 100 10/19/18 00:00 98.6 67 18 93/31 (51) 100 10/19/18 00:00 Endotracheal Tube Mechanical Ventilator 10/19/18 00:00 67 10/19/18 00:00 25 10/18/18 23:05 94 19 25 10/18/18 23:00 68 18 93/38 (56) 100 10/18/18 22:00 67 19 93/38 (56) 100 10/18/18 21:01 71 21 25 10/18/18 21:00 70 20 91/36 (54) 99 10/18/18 20:08 25 10/18/18 20:05 Endotracheal Tube Mechanical Ventilator 10/18/18 20:04 70 18 25 10/18/18 20:00 72 21 109/30 (56) 99 10/18/18 20:00 98.0 72 21 109/30 (56) 99 10/18/18 20:00 71 10/18/18 19:30 67 87/56 10/18/18 19:00 69 17 102/31 (54) 100 10/18/18 18:56 69 15 96/36 (56) 99 10/18/18 18:00 64 16 83/31 (48) 99 10/18/18 17:10 67 21 25 10/18/18 17:00 70 24 105/29 (54) 98 10/18/18 16:00 25 10/18/18 16:00 62 10/18/18 16:00 Endotracheal Tube Mechanical Ventilator 10/18/18 16:00 62 18 86/29 (48) 100 10/18/18 15:00 71 30 25 10/18/18 15:00 90 25 99/39 (59) 100 10/18/18 14:00 131 30 97/45 (62) 99 10/18/18 13:00 62 18 100/33 (55) 100 General Appearance: on vent, patient on isolation Intake and Output 10/18/18 10/19/18 19:00 07:00 Intake Total 1455 ml 1025 ml Output Total 700 ml 1000 ml Balance 755 ml 25 ml Intake Free Water 50 ml IV Total 985 ml 605 ml Tube Feeding 420 ml 420 ml Output Urine Total 700 ml 1000 ml # Bowel Movements 2 1 Laboratory Tests Test 10/19/18 06:00 10/19/18 08:28 White Blood Count 4.6 K/UL (4.8-10.8) L Red Blood Count 2.56 M/UL (4.20-5.40) L Hemoglobin 7.7 G/DL (12.0-16.0) L Hematocrit 22.9 % (37.0-47.0) L Mean Corpuscular Volume 89 FL (80-99) Mean Corpuscular Hemoglobin 29.9 PG (27.0-31.0) Mean Corpuscular Hemoglobin Concent 33.5 G/DL (32.0-36.0) Red Cell Distribution Width 13.0 % (11.6-14.8) Platelet Count 289 K/UL (150-450) Mean Platelet Volume 6.1 FL (6.5-10.1) L Neutrophils (%) (Auto) % (45.0-75.0) Lymphocytes (%) (Auto) % (20.0-45.0) Monocytes (%) (Auto) % (1.0-10.0) Eosinophils (%) (Auto) % (0.0-3.0) Basophils (%) (Auto) % (0.0-2.0) Differential Total Cells Counted 100 Neutrophils % (Manual) 51 % (45-75) Lymphocytes % (Manual) 39 % (20-45) Monocytes % (Manual) 6 % (1-10) Eosinophils % (Manual) 2 % (0-3) Basophils % (Manual) 2 % (0-2) Band Neutrophils 0 % (0-8) Platelet Estimate Adequate Platelet Morphology Normal Hypochromasia 3+ Anisocytosis 1+ Sodium Level 141 MMOL/L (136-145) Potassium Level 4.3 MMOL/L (3.5-5.1) Chloride Level 109 MMOL/L (98-107) H Carbon Dioxide Level 27 MMOL/L (21-32) Anion Gap 5 mmol/L (5-15) Blood Urea Nitrogen 18 mg/dL (7-18) Creatinine 0.9 MG/DL (0.55-1.30) Estimat Glomerular Filtration Rate mL/min (>60) Glucose Level 109 MG/DL (74-106) H Calcium Level 8.0 MG/DL (8.5-10.1) L Phosphorus Level 2.2 MG/DL (2.5-4.9) L Magnesium Level 2.2 MG/DL (1.8-2.4) Total Bilirubin 0.4 MG/DL (0.2-1.0) Aspartate Amino Transf (AST/SGOT) 27 U/L (15-37) Alanine Aminotransferase (ALT/SGPT) 28 U/L (12-78) Alkaline Phosphatase 68 U/L (46-116) Total Protein 5.3 G/DL (6.4-8.2) L Albumin 1.6 G/DL (3.4-5.0) L Globulin 3.7 g/dL Albumin/Globulin Ratio 0.4 (1.0-2.7) L Arterial Blood pH 7.485 (7.350-7.450) Arterial Blood Partial Pressure CO2 36.8 mmHg (35.0-45.0) Arterial Blood Partial Pressure O2 70.7 mmHg (75.0-100.0) L Arterial Blood HCO3 27.1 mmol/L (22.0-26.0) H Arterial Blood Oxygen Saturation 94.1 % (95-100) L Arterial Blood Base Excess 3.5 (-2-2) H Khadar Test Positive Huber Humphrey MD Oct 19, 2018 12:53
--- NOTE | 2018-10-19 13:18 | Diagnostic Imaging Report ---
Indication: Dyspnea Comparison: 10/16/2018 A single view chest radiograph was obtained. Findings: Airspace opacities likely pulmonary edema with some mild interval improvement. There is moderate residual disease currently. Bilateral pleural effusions also suspected. Endotracheal tube is in good position as is the PICC line. IMPRESSION: Pulmonary edema and/or infiltrates with some improvement since the last study
--- NOTE | 2018-10-19 14:00 | NUR ---
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 no new orders.
--- NOTE | 2018-10-19 14:45 | Cardiology Report ---
APPROVED REPORT EKG Measurement Heart [id number] AL 130P [id number] Suspect arm lead reversal, interpretation assumes no reversal Sinus tachycardia Anterolateral infarct, age undetermined Abnormal ECG
[2018-10-19] MEDS: Vancomycin 1gm/D5W 275ml IVPB SCH ×2 (15:07)
--- NOTE | 2018-10-19 16:00 | NUR ---
NURSE NOTES: 1 unit blood transfused PRN. VSS.
--- NOTE | 2018-10-19 16:42 | Internal Med Progress Note ---
Subjective Date of Service: Oct 19, 2018 Physician Name Dimitrios Daly Attending Physician Tereso Toro MD Current Medications Medications (Trade) Dose Ordered Sig/Christopher Route PRN Reason Start Time Stop Time Status Last Admin Dose Admin Acetaminophen (Tylenol) 650 mg Q4H PRN GT Mild Pain/Temp > 101 10/13/18 04:30 11/11/18 04:29 10/14/18 05:38 Chlorhexidine Gluconate (Tatiana-Hex 2%) 1 applic DAILY@2000 TOPIC 10/13/18 20:00 11/12/18 19:59 10/18/18 20:20 Dextrose 1,000 ml @ 50 mls/hr Q20H IV 10/16/18 16:30 11/15/18 16:29 10/18/18 04:46 Dextrose (Dextrose 50%) 25 ml Q30M PRN IV Hypoglycemia 10/13/18 03:30 11/11/18 04:29 Dextrose (Dextrose 50%) 50 ml Q30M PRN IV Hypoglycemia 10/13/18 03:30 11/11/18 04:29 Haloperidol Lactate (Haldol) 5 mg Q6H PRN IM Agitation 10/14/18 13:30 11/13/18 13:29 10/14/18 15:37 Insulin Aspart (NovoLOG) EVERY 6 HOURS SUBQ 10/13/18 06:00 11/11/18 06:29 10/19/18 05:56 Meropenem 1 gm/ Sodium Chloride 55 ml @ 110 mls/hr Q12H IVPB 10/14/18 15:00 10/23/18 16:00 10/19/18 15:19 Norepinephrine Bitartrate 4 mg/ Dextrose 250 ml @ 0 mls/hr Q24H IV 10/13/18 09:00 11/12/18 08:59 10/13/18 14:21 Pantoprazole (Protonix) 40 mg DAILY IVP 10/14/18 09:00 11/13/18 08:59 10/19/18 09:18 Phenylephrine HCl 50 mg/Dextrose 250 ml @ 0 mls/hr Q24H IV 10/13/18 19:30 11/12/18 19:29 Sitagliptin Phosphate (Januvia) 100 mg ACBREAKFAST GT 10/13/18 06:30 11/11/18 06:29 10/19/18 06:02 Vancomycin HCl (Vanco rx to dose) 1 ea DAILY PRN MISC Per rx protocol 10/13/18 09:00 11/11/18 12:14 Vancomycin HCl 1 gm/Dextrose 275 ml @ 183.708 mls/hr Q24H IVPB 10/14/18 15:00 10/23/18 16:00 10/19/18 15:07 Allergies: Coded Allergies: No Known Allergies (Verified , 08/14/06) ROS Limited/Unobtainable: Yes Subjective 78 YO F admitted with pneumonia. Now sepsis and hypotension. Intubated and sedated. ICU. Cover for Int Med-Dr Toro. Continues on levophed and phenylphrine Objective Last Vital Signs Date Time Temp Pulse Resp B/P (MAP) Pulse Ox O2 Delivery O2 Flow Rate FiO2 10/19/18 15:01 74 22 25 10/19/18 15:00 106/60 (75) 99 10/19/18 12:00 Endotracheal Tube Mechanical Ventilator 10/19/18 12:00 98.2 10/12/18 20:00 5.0 5.0 Laboratory Tests Test 10/19/18 06:00 10/19/18 08:28 White Blood Count 4.6 K/UL (4.8-10.8) L Red Blood Count 2.56 M/UL (4.20-5.40) L Hemoglobin 7.7 G/DL (12.0-16.0) L Hematocrit 22.9 % (37.0-47.0) L Mean Corpuscular Volume 89 FL (80-99) Mean Corpuscular Hemoglobin 29.9 PG (27.0-31.0) Mean Corpuscular Hemoglobin Concent 33.5 G/DL (32.0-36.0) Red Cell Distribution Width 13.0 % (11.6-14.8) Platelet Count 289 K/UL (150-450) Mean Platelet Volume 6.1 FL (6.5-10.1) L Neutrophils (%) (Auto) % (45.0-75.0) Lymphocytes (%) (Auto) % (20.0-45.0) Monocytes (%) (Auto) % (1.0-10.0) Eosinophils (%) (Auto) % (0.0-3.0) Basophils (%) (Auto) % (0.0-2.0) Differential Total Cells Counted 100 Neutrophils % (Manual) 51 % (45-75) Lymphocytes % (Manual) 39 % (20-45) Monocytes % (Manual) 6 % (1-10) Eosinophils % (Manual) 2 % (0-3) Basophils % (Manual) 2 % (0-2) Band Neutrophils 0 % (0-8) Platelet Estimate Adequate Platelet Morphology Normal Hypochromasia 3+ Anisocytosis 1+ Sodium Level 141 MMOL/L (136-145) Potassium Level 4.3 MMOL/L (3.5-5.1) Chloride Level 109 MMOL/L (98-107) H Carbon Dioxide Level 27 MMOL/L (21-32) Anion Gap 5 mmol/L (5-15) Blood Urea Nitrogen 18 mg/dL (7-18) Creatinine 0.9 MG/DL (0.55-1.30) Estimat Glomerular Filtration Rate mL/min (>60) Glucose Level 109 MG/DL (74-106) H Calcium Level 8.0 MG/DL (8.5-10.1) L Phosphorus Level 2.2 MG/DL (2.5-4.9) L Magnesium Level 2.2 MG/DL (1.8-2.4) Total Bilirubin 0.4 MG/DL (0.2-1.0) Aspartate Amino Transf (AST/SGOT) 27 U/L (15-37) Alanine Aminotransferase (ALT/SGPT) 28 U/L (12-78) Alkaline Phosphatase 68 U/L (46-116) Total Protein 5.3 G/DL (6.4-8.2) L Albumin 1.6 G/DL (3.4-5.0) L Globulin 3.7 g/dL Albumin/Globulin Ratio 0.4 (1.0-2.7) L Arterial Blood pH 7.485 (7.350-7.450) Arterial Blood Partial Pressure CO2 36.8 mmHg (35.0-45.0) Arterial Blood Partial Pressure O2 70.7 mmHg (75.0-100.0) L Arterial Blood HCO3 27.1 mmol/L (22.0-26.0) H Arterial Blood Oxygen Saturation 94.1 % (95-100) L Arterial Blood Base Excess 3.5 (-2-2) H Khadar Test Positive Intake and Output 10/18/18 10/19/18 19:00 07:00 Intake Total 1455 ml 1025 ml Output Total 700 ml 1000 ml Balance 755 ml 25 ml Intake Free Water 50 ml IV Total 985 ml 605 ml Tube Feeding 420 ml 420 ml Output Urine Total 700 ml 1000 ml # Bowel Movements 2 1 Objective General Appearance: WD/WN, moderate distress, lethargic EENT: PERRL/EOMI, normal ENT inspection Neck: non-tender, normal alignment, supple Cardiovascular: normal peripheral pulses, normal rate, regular rhythm, no gallop/murmur, no JVD Respiratory/Chest: Mech Vent; respiratory distress, crackles/rales, rhonchi - bilaterally, expiratory wheezing Abdomen: normal bowel sounds, non tender, soft, no organomegaly, no mass 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 Failed weaning protocol (4) Sepsis (5) Diabetes mellitus type II, uncontrolled (6) HTN (hypertension) (7) Hemiparesis affecting left side as late effect of cerebrovascular accident (8) Healthcare-associated pneumonia Assessment & Plan: Continue vanco and Meropenem per ID (9) Hypotension Assessment & Plan: due to sepsis; continue levophed (10) Sepsis (11) Diarrhea Assessment & Plan: stool for C. Diff and cult and sens (12) Elevated troponin Assessment & Plan: See cardiology note. (13) CHF (congestive heart failure) Status: not improved Assessment/Plan Discussed with Emily rios via telephone. Dimitrios Daly MD Oct 19, 2018 16:42
--- NOTE | 2018-10-19 18:05 | Infectious Diseases Prog Note ---
Assessment/Plan Problems: (1) Aspiration pneumonia Assessment & Plan: due to pseudomonas aeruginosa and proteus mirabilis , continue meropenem for two weeks , aspiration precaution with aggressive suctioning , keep HOB > 30 degree .monitor CXR (2) Sepsis Assessment & Plan: with strep viridans and lactobacillus spp suspect GI source most likely malignancy , continue meropenem for now and add penicillin G . recommend echo to rule out vegetations. recommend colonoscopy in the future to rule colon CA . stop vancomycin (3) Acute respiratory failure Assessment & Plan: due to the above , intubated on mechanical ventilation , monitor CXR and ABG. pulmonary is following, failed weaning trials so far (4) Diabetes mellitus type II, uncontrolled Assessment & Plan: recommend tight glycemic control to keep blood glucose between 100-140 (5) JEFFY (acute kidney injury) Assessment & Plan: improved, due to hypotension and sepsis, continue hydration , monitor renal function, and UOP Subjective ROS Limited/Unobtainable: Yes Allergies: Coded Allergies: No Known Allergies (Verified , 08/14/06) Subjective she was still intubated , on mechanical ventilation in ICU , more awake, no fever. no diarrhea , but significant secretions, on weaning trials. Objective Vital Signs Last 24 Hour Vital Signs Date Time Temp Pulse Resp B/P (MAP) Pulse Ox O2 Delivery O2 Flow Rate FiO2 10/19/18 17:08 60 18 25 10/19/18 15:01 74 22 25 10/19/18 15:00 70 19 106/60 (75) 99 10/19/18 14:00 65 19 100/50 (67) 99 10/19/18 13:17 72 18 25 10/19/18 13:00 69 19 93/43 (60) 99 10/19/18 12:00 Endotracheal Tube Mechanical Ventilator 10/19/18 12:00 98.2 73 20 97/45 (62) 98 10/19/18 12:00 75 10/19/18 12:00 25 10/19/18 11:00 65 19 95/55 (68) 99 10/19/18 10:58 73 18 25 10/19/18 10:00 72 19 110/50 (70) 99 10/19/18 09:16 68 18 25 10/19/18 09:00 70 19 100/43 (62) 99 10/19/18 09:00 90/42 10/19/18 08:00 74 10/19/18 08:00 98.2 74 20 90/42 (58) 98 10/19/18 08:00 25 10/19/18 08:00 Endotracheal Tube Mechanical Ventilator 10/19/18 07:00 65 19 93/43 (60) 99 10/19/18 06:58 65 18 25 10/19/18 06:04 65 19 93/43 (60) 99 10/19/18 05:59 66 18 25 10/19/18 05:00 98.4 67 24 107/47 (67) 98 10/19/18 04:00 73 10/19/18 04:00 25 10/19/18 04:00 87 18 101/39 (59) 100 10/19/18 04:00 Endotracheal Tube Mechanical Ventilator 10/19/18 03:02 71 18 25 10/19/18 03:00 72 18 99/48 (65) 100 10/19/18 02:00 73 18 95/35 (55) 100 10/19/18 01:09 64 18 25 10/19/18 01:00 67 18 91/35 (53) 100 10/19/18 00:00 98.6 67 18 93/31 (51) 100 10/19/18 00:00 Endotracheal Tube Mechanical Ventilator 10/19/18 00:00 67 10/19/18 00:00 25 10/18/18 23:05 94 19 25 10/18/18 23:00 68 18 93/38 (56) 100 10/18/18 22:00 67 19 93/38 (56) 100 10/18/18 21:01 71 21 25 10/18/18 21:00 70 20 91/36 (54) 99 10/18/18 20:08 25 10/18/18 20:05 Endotracheal Tube Mechanical Ventilator 10/18/18 20:04 70 18 25 10/18/18 20:00 72 21 109/30 (56) 99 10/18/18 20:00 98.0 72 21 109/30 (56) 99 10/18/18 20:00 71 10/18/18 19:30 67 87/56 10/18/18 19:00 69 17 102/31 (54) 100 10/18/18 18:56 69 15 96/36 (56) 99 10/18/18 18:00 64 16 83/31 (48) 99 Height (Feet): 5 Height (Inches): 4.00 Weight (Pounds): 140 General Appearance: WD/WN, no acute distress, cachetic HEENT: normocephalic, atraumatic, anicteric, mucous membranes moist, supple, no JVD Respiratory/Chest: chest wall non-tender, no respiratory distress, no accessory muscle use, decreased breath sounds, crackles/rales Cardiovascular: normal peripheral pulses, normal rate, regular rhythm, no gallop/murmur, no JVD Abdomen: normal bowel sounds, soft, non tender, no organomegaly, non distended , no mass, no scars Extremities: no cyanosis, no clubbing Skin: no rash, no lesions, ulcers Neurologic/Psychiatric: alert, unresponsiveness Lymphatic: no neck adenopathy, no groin adenopathy Musculoskeletal: no effusion, atrophy Laboratory Tests Test 10/19/18 06:00 10/19/18 08:28 White Blood Count 4.6 K/UL (4.8-10.8) L Red Blood Count 2.56 M/UL (4.20-5.40) L Hemoglobin 7.7 G/DL (12.0-16.0) L Hematocrit 22.9 % (37.0-47.0) L Mean Corpuscular Volume 89 FL (80-99) Mean Corpuscular Hemoglobin 29.9 PG (27.0-31.0) Mean Corpuscular Hemoglobin Concent 33.5 G/DL (32.0-36.0) Red Cell Distribution Width 13.0 % (11.6-14.8) Platelet Count 289 K/UL (150-450) Mean Platelet Volume 6.1 FL (6.5-10.1) L Neutrophils (%) (Auto) % (45.0-75.0) Lymphocytes (%) (Auto) % (20.0-45.0) Monocytes (%) (Auto) % (1.0-10.0) Eosinophils (%) (Auto) % (0.0-3.0) Basophils (%) (Auto) % (0.0-2.0) Differential Total Cells Counted 100 Neutrophils % (Manual) 51 % (45-75) Lymphocytes % (Manual) 39 % (20-45) Monocytes % (Manual) 6 % (1-10) Eosinophils % (Manual) 2 % (0-3) Basophils % (Manual) 2 % (0-2) Band Neutrophils 0 % (0-8) Platelet Estimate Adequate Platelet Morphology Normal Hypochromasia 3+ Anisocytosis 1+ Sodium Level 141 MMOL/L (136-145) Potassium Level 4.3 MMOL/L (3.5-5.1) Chloride Level 109 MMOL/L (98-107) H Carbon Dioxide Level 27 MMOL/L (21-32) Anion Gap 5 mmol/L (5-15) Blood Urea Nitrogen 18 mg/dL (7-18) Creatinine 0.9 MG/DL (0.55-1.30) Estimat Glomerular Filtration Rate mL/min (>60) Glucose Level 109 MG/DL (74-106) H Calcium Level 8.0 MG/DL (8.5-10.1) L Phosphorus Level 2.2 MG/DL (2.5-4.9) L Magnesium Level 2.2 MG/DL (1.8-2.4) Total Bilirubin 0.4 MG/DL (0.2-1.0) Aspartate Amino Transf (AST/SGOT) 27 U/L (15-37) Alanine Aminotransferase (ALT/SGPT) 28 U/L (12-78) Alkaline Phosphatase 68 U/L (46-116) Total Protein 5.3 G/DL (6.4-8.2) L Albumin 1.6 G/DL (3.4-5.0) L Globulin 3.7 g/dL Albumin/Globulin Ratio 0.4 (1.0-2.7) L Arterial Blood pH 7.485 (7.350-7.450) Arterial Blood Partial Pressure CO2 36.8 mmHg (35.0-45.0) Arterial Blood Partial Pressure O2 70.7 mmHg (75.0-100.0) L Arterial Blood HCO3 27.1 mmol/L (22.0-26.0) H Arterial Blood Oxygen Saturation 94.1 % (95-100) L Arterial Blood Base Excess 3.5 (-2-2) H Khadar Test Positive Current Medications Medications (Trade) Dose Ordered Sig/Christopher Route PRN Reason Start Time Stop Time Status Last Admin Dose Admin Acetaminophen (Tylenol) 650 mg Q4H PRN GT Mild Pain/Temp > 101 10/13/18 04:30 11/11/18 04:29 10/14/18 05:38 Chlorhexidine Gluconate (Tatiana-Hex 2%) 1 applic DAILY@2000 TOPIC 10/13/18 20:00 11/12/18 19:59 10/18/18 20:20 Dextrose 1,000 ml @ 50 mls/hr Q20H IV 10/16/18 16:30 11/15/18 16:29 10/18/18 04:46 Dextrose (Dextrose 50%) 25 ml Q30M PRN IV Hypoglycemia 10/13/18 03:30 11/11/18 04:29 Dextrose (Dextrose 50%) 50 ml Q30M PRN IV Hypoglycemia 10/13/18 03:30 11/11/18 04:29 Haloperidol Lactate (Haldol) 5 mg Q6H PRN IM Agitation 10/14/18 13:30 11/13/18 13:29 10/14/18 15:37 Insulin Aspart (NovoLOG) EVERY 6 HOURS SUBQ 10/13/18 06:00 11/11/18 06:29 10/19/18 05:56 Meropenem 1 gm/ Sodium Chloride 55 ml @ 110 mls/hr Q12H IVPB 10/14/18 15:00 10/23/18 16:00 10/19/18 15:19 Norepinephrine Bitartrate 4 mg/ Dextrose 250 ml @ 0 mls/hr Q24H IV 10/13/18 09:00 11/12/18 08:59 10/13/18 14:21 Pantoprazole (Protonix) 40 mg DAILY IVP 10/14/18 09:00 11/13/18 08:59 10/19/18 09:18 Phenylephrine HCl 50 mg/Dextrose 250 ml @ 0 mls/hr Q24H IV 10/13/18 19:30 11/12/18 19:29 Sitagliptin Phosphate (Januvia) 100 mg ACBREAKFAST GT 10/13/18 06:30 11/11/18 06:29 10/19/18 06:02 Vancomycin HCl (Vanco rx to dose) 1 ea DAILY PRN MISC Per rx protocol 10/13/18 09:00 11/11/18 12:14 Vancomycin HCl 1 gm/Dextrose 275 ml @ 183.708 mls/hr Q24H IVPB 10/14/18 15:00 10/23/18 16:00 10/19/18 15:07 Porfirio Valentine M.D. Oct 19, 2018 18:05
--- NOTE | 2018-10-19 19:14 | NUR ---
HAND-OFF: Report given to BOUBACAR Ricardo.
[2018-10-19] MEDS: Phenylephrine 50 MG in D5W 245 ML IV SCH (19:30)
--- NOTE | 2018-10-19 19:30 | NUR ---
NURSE NOTES: Received report and pt from BOUBACAR Yeung. Pt's in no acute distress. Opens eyes spontaneously but non verbal due to ETT 7, 21lipline, AC 18, TV 450, FiO2 25%, Peep 5. Appears to be tolerating current vent parameters, saturating 100%., secretions pinkish, thick, copious via ETT and orally. Contracted on all 4 extremities. SR on the patient monitor. ; Bp stable; afebrile. GTF with Glucerna 1.5 running at 35ml/h with 0 residuals. Roberts 16Fr patent, draining clear yellow urine; PICC on JOLEEN intact, IVF of D5W infusing 50ml/h. HOB kept elevated. Bed in low and locked position. Will continue to monitor
[2018-10-19] MEDS: Dyna-Hex 2% Top Sol 2oz TOPIC SCH (21:28)
[2018-10-19] MEDS: Penicillin G Potassium 4 MU in NS 55 ML IVPB SCH (21:28)
--- NOTE | 2018-10-19 22:00 | NUR ---
NURSE NOTES: Pt's resting in bed, in no acute distress. VS stable. Will continue to monitor.
[2018-10-20] VITALS (24 sets, daily range): BP systolic 86–121; BP diastolic 40–62
--- NOTE | 2018-10-20 | NUR ---
NURSE NOTES: Pt's resting in bed, in no distress. VS stable. Will continue to monitor.
[2018-10-20] MEDS: NovoLOG Insulin Flexpen SUBQ SCH ×5 (00:19→23:27)
[2018-10-20] MEDS: Penicillin G Potassium 4 MU in NS 55 ML IVPB SCH ×7 (00:20→23:28)
--- NOTE | 2018-10-20 02:00 | NUR ---
NURSE NOTES: Pt's resting in bed, in no acute distress. VS stable. Will continue to monitor.
[2018-10-20] MEDS: Meropenem 1 GM in NS 55 ML IVPB SCH ×2 (03:21→15:27)
--- NOTE | 2018-10-20 04:00 | NUR ---
NURSE NOTES: Pt's resting in bed, in no acute distress. VS stable. Will continue to monitor.
--- NOTE | 2018-10-20 06:00 | NUR ---
NURSE NOTES: Pt's resting in bed, in no acute distress. VS stable. Afebrile. Will continue to monitor.
--- NOTE | 2018-10-20 06:45 | NUR ---
RESPIRATORY NOTE: Received pt on ETT 7.0@ 23 cm lips line, secured by anchor fast, with current setting: AC 18-450-25% FiO2- peep of 5, saturates at 100%. Pt is lethargic, bite block in place to prevent tube biting, circuits is secured and out of the way. Pt is tolerating well the vent setting, SOB or acute resp distress noted. Alarms are set and audible, ambu bag is at bedside, vent is plugged into the red outlet. Will continue to monitor pt ans sxn as needed.
--- NOTE | 2018-10-20 07:18 | NUR ---
HAND-OFF: Report given to BOUBACAR Yeung.
[2018-10-20 07:41] LABS: BASOPHILS % (AUTO) 0.9 % (0.0-2.0); EOSINOPHILS % (AUTO) 2.6 % (0.0-3.0); HEMATOCRIT 28.1 % (37.0-47.0); HEMOGLOBIN 9.4 G/DL (12.0-16.0); LYMPHOCYTES % (AUTO) 26.9 % (20.0-45.0); MEAN CORPUSCULAR VOLUME 90 FL (80-99); MONOCYTES % (AUTO) 7.7 % (1.0-10.0); NEUTROPHILS % (AUTO) 61.9 % (45.0-75.0); PLATELET COUNT 343 K/UL (150-450); RED BLOOD COUNT 3.13 M/UL (4.20-5.40); RED CELL DISTRIBUTION WIDTH 13.3 % (11.6-14.8); WHITE BLOOD COUNT 4.3 K/UL (4.8-10.8)
[2018-10-20 07:44] LABS: ALANINE AMINOTRANSFERASE 28 U/L (12-78); ALBUMIN 1.7 G/DL (3.4-5.0); ALBUMIN/GLOBULIN RATIO 0.4 (1.0-2.7); ALKALINE PHOSPHATASE 81 U/L (46-116); ANION GAP 7 mmol/L (5-15); ASPARTATE AMINO TRANSFERASE 24 U/L (15-37); BILIRUBIN,TOTAL 0.3 MG/DL (0.2-1.0); BLOOD UREA NITROGEN 19 mg/dL (7-18); CALCIUM 8.3 MG/DL (8.5-10.1); CARBON DIOXIDE 26 MMOL/L (21-32); CHLORIDE 108 MMOL/L (98-107); CREATININE 0.9 MG/DL (0.55-1.30); PHOSPHORUS 2.7 MG/DL (2.5-4.9); POTASSIUM 4.6 MMOL/L (3.5-5.1); SODIUM 141 MMOL/L (136-145)
--- NOTE | 2018-10-20 08:00 | NUR ---
NURSE NOTES: Received report and pt from BOUBACAR Ricardo. Pt's in no acute distress. Opens eyes spontaneously but non verbal due to ETT 7, 21lipline, AC 18, TV 450, FiO2 25%, Peep 5. Appears to be tolerating current vent parameters, saturating 100%., secretions pinkish, thick, copious via ETT and orally. Contracted on all 4 extremities. SR on the cardiac rehabilitation specialist. ; Bp stable; afebrile. GTF with Glucerna 1.5 running at 35ml/h with 0 residuals. Roberts 16Fr patent, draining clear yellow urine; PICC on JOLEEN intact, IVF of D5W infusing 50ml/h. HOB kept elevated. Bed in low and locked position. Will continue to monitor
[2018-10-20] MEDS: Pantoprazole Inj IVP SCH (09:12)
--- NOTE | 2018-10-20 09:38 | NUR ---
RADIOLOGY DEPT CHEST X-RAY DONE.-P.DYE
--- NOTE | 2018-10-20 10:00 | NUR ---
NURSE NOTES: Pt repositioned and cleaned. Oral care provided. VSS. will continue plan of care.
--- NOTE | 2018-10-20 10:18 | Pulmonolgy Critical Care Note ---
Critical Care - Asmt/Plan Problems: (1) Acute respiratory failure (2) Healthcare-associated pneumonia (3) Sepsis (4) Diabetes mellitus type II, uncontrolled (5) Feeding by G-tube (6) Hemiparesis affecting left side as late effect of cerebrovascular accident Respiratory: monitor respiratory rate, adjust FIO2, CXR Cardiac: continue to monitor HR/BP Renal: F/U I&O, check electrolytes Infectious Disease: check cultures Gastrointestinal: continue feedings/current rate Endocrine: monitor blood sugar Hematologic: monitor H/H, transfuse if hgb<8.5 Neurologic: PRN Ativan, keep patient comfortable Affect: PRN ativan Prophylaxis: Heparin Notes Reviewed: curriculum and assessment director, renal Discussed with: nurses, consultants, case makerhealth information manager - Objective Last 24 Hour Vital Signs Date Time Temp Pulse Resp B/P (MAP) Pulse Ox O2 Delivery O2 Flow Rate FiO2 10/20/18 10:00 60 18 115/59 (77) 100 10/20/18 09:10 61 17 25 10/20/18 09:00 60 18 107/41 (63) 100 10/20/18 08:00 Endotracheal Tube Mechanical Ventilator 10/20/18 08:00 98.2 62 17 110/40 (63) 100 10/20/18 08:00 25 10/20/18 08:00 72 10/20/18 07:00 60 18 116/41 (66) 100 10/20/18 06:45 61 19 25 10/20/18 06:00 98.2 65 17 105/40 (61) 100 10/20/18 05:00 67 17 100/40 (60) 100 10/20/18 04:59 73 18 25 10/20/18 04:00 25 10/20/18 04:00 80 18 104/42 (62) 100 10/20/18 04:00 Endotracheal Tube Mechanical Ventilator 10/20/18 04:00 68 10/20/18 03:08 64 18 25 10/20/18 03:00 65 18 93/42 (59) 100 10/20/18 02:00 67 17 86/40 (55) 100 10/20/18 01:00 67 18 97/42 (60) 100 10/20/18 00:51 69 21 25 10/20/18 00:00 98.2 66 18 100/52 (68) 100 10/20/18 00:00 Endotracheal Tube Mechanical Ventilator 10/19/18 23:00 76 20 116/47 (70) 99 10/19/18 22:38 73 16 25 10/19/18 22:00 72 22 110/43 (65) 100 10/19/18 21:42 72 21 25 10/19/18 21:00 73 19 106/50 (68) 100 10/19/18 20:00 Endotracheal Tube Mechanical Ventilator 10/19/18 20:00 75 10/19/18 20:00 25 10/19/18 20:00 66 19 102/45 (64) 100 10/19/18 19:30 66 102/45 10/19/18 19:21 72 18 25 10/19/18 19:00 75 19 106/60 (75) 99 10/19/18 18:00 98.0 73 20 100/55 (70) 98 10/19/18 17:08 60 18 25 10/19/18 17:00 72 19 109/62 (78) 99 10/19/18 16:00 69 19 110/62 (78) 99 10/19/18 16:00 25 10/19/18 16:00 Endotracheal Tube Mechanical Ventilator 10/19/18 16:00 81 10/19/18 15:01 74 22 25 10/19/18 15:00 70 19 106/60 (75) 99 10/19/18 14:00 65 19 100/50 (67) 99 10/19/18 13:17 72 18 25 10/19/18 13:00 69 19 93/43 (60) 99 10/19/18 12:00 Endotracheal Tube Mechanical Ventilator 10/19/18 12:00 98.2 73 20 97/45 (62) 98 10/19/18 12:00 75 10/19/18 12:00 25 10/19/18 11:00 65 19 95/55 (68) 99 10/19/18 10:58 73 18 25 Status: awake Condition: critical Neck: full ROM Lungs: rales, rhonchi Heart: HR/BP stable Abdomen: soft, active bowel sounds Extremities: edema Decubiti: location Accucheck: 128 Critical Care - Subjective ROS Limited/Unobtainable: Yes Interval Events: late note for 2018 open eyes, looks comfortable FI02: 25 Vent Support Breath Rate: 18 Vent Support Mode: AC Vent Tidal Volume: 450 Sputum Amount: Moderate PEEP: 5.0 PIP: 30 Tube Feeding Amount: 35 I&O: Intake and Output 10/19/18 10/20/18 18:59 06:59 Intake Total 475 ml 1240 ml Output Total 1060 ml 980 ml Balance -585 ml 260 ml IV Total 55 ml 820 ml Tube Feeding 420 ml 420 ml Output Urine Total 1060 ml 980 ml # Bowel Movements 1 CXR: no change ET-Tube: 7.0 ET Position: 23 Barbara Sky MD Oct 20, 2018 10:18
--- NOTE | 2018-10-20 10:19 | Pulmonolgy Critical Care Note ---
Critical Care - Asmt/Plan Problems: (1) Acute respiratory failure (2) Healthcare-associated pneumonia (3) Sepsis (4) Diabetes mellitus type II, uncontrolled (5) Feeding by G-tube (6) Hemiparesis affecting left side as late effect of cerebrovascular accident Respiratory: monitor respiratory rate, adjust FIO2, CXR Cardiac: continue to monitor HR/BP Renal: F/U I&O Infectious Disease: check cultures Gastrointestinal: continue feedings/current rate Endocrine: check HgA1C Hematologic: monitor H/H, transfuse if hgb<8.5 Neurologic: keep patient comfortable Prophylaxis: Protonix, Heparin Disposition: keep in ICU Discussed with: nurses, consultants, case checkernightclub manager - Objective Last 24 Hour Vital Signs Date Time Temp Pulse Resp B/P (MAP) Pulse Ox O2 Delivery O2 Flow Rate FiO2 10/20/18 10:00 60 18 115/59 (77) 100 10/20/18 09:10 61 17 25 10/20/18 09:00 60 18 107/41 (63) 100 10/20/18 08:00 Endotracheal Tube Mechanical Ventilator 10/20/18 08:00 98.2 62 17 110/40 (63) 100 10/20/18 08:00 25 10/20/18 08:00 72 10/20/18 07:00 60 18 116/41 (66) 100 10/20/18 06:45 61 19 25 10/20/18 06:00 98.2 65 17 105/40 (61) 100 10/20/18 05:00 67 17 100/40 (60) 100 10/20/18 04:59 73 18 25 10/20/18 04:00 25 10/20/18 04:00 80 18 104/42 (62) 100 10/20/18 04:00 Endotracheal Tube Mechanical Ventilator 10/20/18 04:00 68 10/20/18 03:08 64 18 25 10/20/18 03:00 65 18 93/42 (59) 100 10/20/18 02:00 67 17 86/40 (55) 100 10/20/18 01:00 67 18 97/42 (60) 100 10/20/18 00:51 69 21 25 10/20/18 00:00 98.2 66 18 100/52 (68) 100 10/20/18 00:00 Endotracheal Tube Mechanical Ventilator 10/19/18 23:00 76 20 116/47 (70) 99 10/19/18 22:38 73 16 25 10/19/18 22:00 72 22 110/43 (65) 100 10/19/18 21:42 72 21 25 10/19/18 21:00 73 19 106/50 (68) 100 10/19/18 20:00 Endotracheal Tube Mechanical Ventilator 10/19/18 20:00 75 10/19/18 20:00 25 10/19/18 20:00 66 19 102/45 (64) 100 10/19/18 19:30 66 102/45 10/19/18 19:21 72 18 25 10/19/18 19:00 75 19 106/60 (75) 99 10/19/18 18:00 98.0 73 20 100/55 (70) 98 10/19/18 17:08 60 18 25 10/19/18 17:00 72 19 109/62 (78) 99 10/19/18 16:00 69 19 110/62 (78) 99 10/19/18 16:00 25 10/19/18 16:00 Endotracheal Tube Mechanical Ventilator 10/19/18 16:00 81 10/19/18 15:01 74 22 25 10/19/18 15:00 70 19 106/60 (75) 99 10/19/18 14:00 65 19 100/50 (67) 99 10/19/18 13:17 72 18 25 10/19/18 13:00 69 19 93/43 (60) 99 10/19/18 12:00 Endotracheal Tube Mechanical Ventilator 10/19/18 12:00 98.2 73 20 97/45 (62) 98 10/19/18 12:00 75 10/19/18 12:00 25 10/19/18 11:00 65 19 95/55 (68) 99 10/19/18 10:58 73 18 25 Status: awake Condition: critical Heart: HR/BP stable, regular Abdomen: active bowel sounds, feeding tube Extremities: edema Decubiti: stage Accucheck: 128 Critical Care - Subjective ROS Limited/Unobtainable: No Condition: critical FI02: 25 Vent Support Breath Rate: 18 Vent Support Mode: AC Vent Tidal Volume: 450 Sputum Amount: Moderate PEEP: 5.0 PIP: 30 Tube Feeding Amount: 35 I&O: Intake and Output 10/19/18 10/20/18 18:59 06:59 Intake Total 475 ml 1240 ml Output Total 1060 ml 980 ml Balance -585 ml 260 ml IV Total 55 ml 820 ml Tube Feeding 420 ml 420 ml Output Urine Total 1060 ml 980 ml # Bowel Movements 1 CXR: no change, ET in good position ET-Tube: 7.0 ET Position: 23 Labs: Laboratory Tests Test 10/20/18 05:30 White Blood Count 4.3 K/UL (4.8-10.8) L Red Blood Count 3.13 M/UL (4.20-5.40) L Hemoglobin 9.4 G/DL (12.0-16.0) L Hematocrit 28.1 % (37.0-47.0) L Mean Corpuscular Volume 90 FL (80-99) Mean Corpuscular Hemoglobin 29.9 PG (27.0-31.0) Mean Corpuscular Hemoglobin Concent 33.3 G/DL (32.0-36.0) Red Cell Distribution Width 13.3 % (11.6-14.8) Platelet Count 343 K/UL (150-450) Mean Platelet Volume 5.7 FL (6.5-10.1) L Neutrophils (%) (Auto) 61.9 % (45.0-75.0) Lymphocytes (%) (Auto) 26.9 % (20.0-45.0) Monocytes (%) (Auto) 7.7 % (1.0-10.0) Eosinophils (%) (Auto) 2.6 % (0.0-3.0) Basophils (%) (Auto) 0.9 % (0.0-2.0) Prothrombin Time 10.6 SEC (9.30-11.50) Prothromb Time International Ratio 1.0 (0.9-1.1) Activated Partial Thromboplast Time 28 SEC (23-33) Sodium Level 141 MMOL/L (136-145) Potassium Level 4.6 MMOL/L (3.5-5.1) Chloride Level 108 MMOL/L (98-107) H Carbon Dioxide Level 26 MMOL/L (21-32) Anion Gap 7 mmol/L (5-15) Blood Urea Nitrogen 19 mg/dL (7-18) H Creatinine 0.9 MG/DL (0.55-1.30) Estimat Glomerular Filtration Rate mL/min (>60) Glucose Level 112 MG/DL (74-106) H Calcium Level 8.3 MG/DL (8.5-10.1) L Phosphorus Level 2.7 MG/DL (2.5-4.9) Magnesium Level 2.3 MG/DL (1.8-2.4) Total Bilirubin 0.3 MG/DL (0.2-1.0) Aspartate Amino Transf (AST/SGOT) 24 U/L (15-37) Alanine Aminotransferase (ALT/SGPT) 28 U/L (12-78) Alkaline Phosphatase 81 U/L (46-116) Total Protein 5.6 G/DL (6.4-8.2) L Albumin 1.7 G/DL (3.4-5.0) L Globulin 3.9 g/dL Albumin/Globulin Ratio 0.4 (1.0-2.7) L Barbara Sky MD Oct 20, 2018 10:19
--- NOTE | 2018-10-20 10:56 | NUR ---
RESPIRATORY NOTE: Placed pt on SIMV 10-PS 15- peep of 5- 25%. Pt didn't tolerate well the setting, increased WOB, RR>35 bpm, low Vt< 200ml. Placed pt back on AC mode with the same previous setting. BOUBACAR eYung notified. Family member at bedside. Will continue to monitor pt closely.
--- NOTE | 2018-10-20 12:00 | NUR ---
NURSE NOTES: child care cook at bedside. VSS. will continue to monitor.
--- NOTE | 2018-10-20 12:52 | Internal Med Progress Note ---
Subjective Date of Service: Oct 20, 2018 Physician Name Dimitrios Daly Attending Physician Tereso Toro MD Current Medications Medications (Trade) Dose Ordered Sig/Christopher Route PRN Reason Start Time Stop Time Status Last Admin Dose Admin Acetaminophen (Tylenol) 650 mg Q4H PRN GT Mild Pain/Temp > 101 10/13/18 04:30 11/11/18 04:29 10/14/18 05:38 Chlorhexidine Gluconate (Tatiana-Hex 2%) 1 applic DAILY@2000 TOPIC 10/13/18 20:00 11/12/18 19:59 10/19/18 21:28 Dextrose 1,000 ml @ 50 mls/hr Q20H IV 10/16/18 16:30 11/15/18 16:29 10/20/18 00:18 Dextrose (Dextrose 50%) 25 ml Q30M PRN IV Hypoglycemia 10/13/18 03:30 11/11/18 04:29 Dextrose (Dextrose 50%) 50 ml Q30M PRN IV Hypoglycemia 10/13/18 03:30 11/11/18 04:29 Haloperidol Lactate (Haldol) 5 mg Q6H PRN IM Agitation 10/14/18 13:30 11/13/18 13:29 10/14/18 15:37 Insulin Aspart (NovoLOG) EVERY 6 HOURS SUBQ 10/13/18 06:00 11/11/18 06:29 10/20/18 06:27 Meropenem 1 gm/ Sodium Chloride 55 ml @ 110 mls/hr Q12H IVPB 10/14/18 15:00 10/23/18 16:00 10/20/18 03:21 Norepinephrine Bitartrate 4 mg/ Dextrose 250 ml @ 0 mls/hr Q24H IV 10/13/18 09:00 11/12/18 08:59 10/13/18 14:21 Pantoprazole (Protonix) 40 mg DAILY IVP 10/14/18 09:00 11/13/18 08:59 10/20/18 09:12 Penicillin G Potassium 4 mu/ Sodium Chloride 55 ml @ 110 mls/hr Q4H IVPB 10/19/18 20:00 10/26/18 19:59 10/20/18 08:00 Phenylephrine HCl 50 mg/Dextrose 250 ml @ 0 mls/hr Q24H IV 10/13/18 19:30 11/12/18 19:29 Sitagliptin Phosphate (Januvia) 100 mg ACBREAKFAST GT 10/13/18 06:30 11/11/18 06:29 10/20/18 06:27 Allergies: Coded Allergies: No Known Allergies (Verified , 08/14/06) ROS Limited/Unobtainable: Yes Subjective 78 YO F admitted with pneumonia. Now sepsis and hypotension. Intubated and sedated. ICU. Cover for Int [facility]-Dr Toro. Continues on levophed and phenylphrine Objective Last Vital Signs Date Time Temp Pulse Resp B/P (MAP) Pulse Ox O2 Delivery O2 Flow Rate FiO2 10/20/18 10:56 99 10/20/18 10:55 68 22 25 10/20/18 10:00 115/59 (77) 10/20/18 08:00 Endotracheal Tube Mechanical Ventilator 10/20/18 08:00 98.2 10/12/18 20:00 5.0 5.0 Laboratory Tests Test 10/20/18 05:30 White Blood Count 4.3 K/UL (4.8-10.8) L Red Blood Count 3.13 M/UL (4.20-5.40) L Hemoglobin 9.4 G/DL (12.0-16.0) L Hematocrit 28.1 % (37.0-47.0) L Mean Corpuscular Volume 90 FL (80-99) Mean Corpuscular Hemoglobin 29.9 PG (27.0-31.0) Mean Corpuscular Hemoglobin Concent 33.3 G/DL (32.0-36.0) Red Cell Distribution Width 13.3 % (11.6-14.8) Platelet Count 343 K/UL (150-450) Mean Platelet Volume 5.7 FL (6.5-10.1) L Neutrophils (%) (Auto) 61.9 % (45.0-75.0) Lymphocytes (%) (Auto) 26.9 % (20.0-45.0) Monocytes (%) (Auto) 7.7 % (1.0-10.0) Eosinophils (%) (Auto) 2.6 % (0.0-3.0) Basophils (%) (Auto) 0.9 % (0.0-2.0) Prothrombin Time 10.6 SEC (9.30-11.50) Prothromb Time International Ratio 1.0 (0.9-1.1) Activated Partial Thromboplast Time 28 SEC (23-33) Sodium Level 141 MMOL/L (136-145) Potassium Level 4.6 MMOL/L (3.5-5.1) Chloride Level 108 MMOL/L (98-107) H Carbon Dioxide Level 26 MMOL/L (21-32) Anion Gap 7 mmol/L (5-15) Blood Urea Nitrogen 19 mg/dL (7-18) H Creatinine 0.9 MG/DL (0.55-1.30) Estimat Glomerular Filtration Rate mL/min (>60) Glucose Level 112 MG/DL (74-106) H Calcium Level 8.3 MG/DL (8.5-10.1) L Phosphorus Level 2.7 MG/DL (2.5-4.9) Magnesium Level 2.3 MG/DL (1.8-2.4) Total Bilirubin 0.3 MG/DL (0.2-1.0) Aspartate Amino Transf (AST/SGOT) 24 U/L (15-37) Alanine Aminotransferase (ALT/SGPT) 28 U/L (12-78) Alkaline Phosphatase 81 U/L (46-116) Total Protein 5.6 G/DL (6.4-8.2) L Albumin 1.7 G/DL (3.4-5.0) L Globulin 3.9 g/dL Albumin/Globulin Ratio 0.4 (1.0-2.7) L Intake and Output 10/19/18 10/20/18 18:59 06:59 Intake Total 475 ml 1240 ml Output Total 1060 ml 980 ml Balance -585 ml 260 ml IV Total 55 ml 820 ml Tube Feeding 420 ml 420 ml Output Urine Total 1060 ml 980 ml # Bowel Movements 1 Objective General Appearance: WD/WN, moderate distress, lethargic EENT: PERRL/EOMI, normal ENT inspection Neck: non-tender, normal alignment, supple Cardiovascular: normal peripheral pulses, normal rate, regular rhythm, no gallop/murmur, no JVD Respiratory/Chest: Mech Vent; respiratory distress, crackles/rales, rhonchi - bilaterally, expiratory wheezing Abdomen: normal bowel sounds, non tender, soft, no organomegaly, no mass Neurologic: tube roller II-XII grossly normal Skin: normal pigmentation, warm/dry Assessment/Plan Problem List: (1) COPD (chronic obstructive pulmonary disease) (2) Cerebral vascular disease (3) Acute respiratory failure Assessment & Plan: Mech Vent per pulmonary. Failed weaning protocol (4) Sepsis (5) Diabetes mellitus type II, uncontrolled (6) HTN (hypertension) (7) Hemiparesis affecting left side as late effect of cerebrovascular accident (8) Healthcare-associated pneumonia Assessment & Plan: Continue vanco and Meropenem per ID (9) Hypotension Assessment & Plan: due to sepsis; continue levophed (10) Sepsis (11) Diarrhea Assessment & Plan: stool for C. Diff and cult and sens (12) Elevated troponin Assessment & Plan: See cardiology note. (13) CHF (congestive heart failure) Assessment/Plan Discussed with Emily rios via telephone. Dimitrios Daly MD Oct 20, 2018 12:52
--- NOTE | 2018-10-20 12:57 | Diagnostic Imaging Report ---
APPROVED REPORT CPT Code: 33857 Present Symptoms Shortness of breath RIGHT LEG: Venous imaging reveals recanalized chronic thrombus in the superficial femoral vein. Large collateral vein noted anterior to the superficial femoral artery. Imaging also reveals patency of the common femoral, popliteal and calf veins. The greater saphenous vein is also within normal limits. Doppler indicates normal spontaneous flow within these segments. LEFT LEG: Venous imaging reveals recanalized chronic thrombus in the common femoral vein. Imaging also reveals patency of the superficial femoral, popliteal and calf veins. The greater saphenous vein is also within normal limits. Doppler indicates normal spontaneous flow within these segments. There is no evidence of acute deep vein thrombosis. Incidental findings: Enlarged lymph node noted in the right and left groin area.
--- NOTE | 2018-10-20 13:25 | Diagnostic Imaging Report ---
Indication: Dyspnea Technique: One view of the chest Comparison: 10/19/2018 Findings: Bilateral left greater than right pleural effusions, bilateral interstitial and airspace infiltrates versus edema persists. Stable positions of endotracheal tube and right arm PICC, satisfactory. Impression: Unchanged, over one day, findings as above.
--- NOTE | 2018-10-20 14:00 | NUR ---
NURSE NOTES: Dr. Valentine rounded on patient. no new orders.
--- NOTE | 2018-10-20 16:00 | NUR ---
NURSE NOTES: Cleaned, repositioned pt, oral care provided. will continue to monitor.
--- NOTE | 2018-10-20 16:45 | Infectious Diseases Prog Note ---
Assessment/Plan Problems: (1) Aspiration pneumonia Assessment & Plan: due to pseudomonas aeruginosa and proteus mirabilis , continue meropenem for two weeks , aspiration precaution with aggressive suctioning , keep HOB > 30 degree .monitor CXR (2) Sepsis Assessment & Plan: with strep viridans and lactobacillus spp suspect GI source most likely malignancy , continue penicillin G for two weeks at least . recommend echo to rule out vegetations. recommend colonoscopy in the future to rule colon CA . will repeat blood culture to confirm clearance (3) Acute respiratory failure Assessment & Plan: due to the above , intubated on mechanical ventilation , monitor CXR and ABG. pulmonary is following, failed weaning trials so far (4) Diabetes mellitus type II, uncontrolled Assessment & Plan: recommend tight glycemic control to keep blood glucose between 100-140 (5) JEFFY (acute kidney injury) Assessment & Plan: improved, due to hypotension and sepsis, continue hydration , monitor renal function, and UOP Subjective ROS Limited/Unobtainable: Yes Allergies: Coded Allergies: No Known Allergies (Verified , 08/14/06) Subjective she was still intubated , on mechanical ventilation in ICU , more awake, no fever. no diarrhea , has less secretions, on weaning trials. Objective Vital Signs Last 24 Hour Vital Signs Date Time Temp Pulse Resp B/P (MAP) Pulse Ox O2 Delivery O2 Flow Rate FiO2 10/20/18 14:40 73 18 25 10/20/18 13:10 62 18 25 10/20/18 10:56 99 10/20/18 10:55 68 22 25 10/20/18 10:00 60 18 115/59 (77) 100 10/20/18 09:10 61 17 25 10/20/18 09:00 60 18 107/41 (63) 100 10/20/18 08:00 Endotracheal Tube Mechanical Ventilator 10/20/18 08:00 98.2 62 17 110/40 (63) 100 10/20/18 08:00 25 10/20/18 08:00 72 10/20/18 07:00 60 18 116/41 (66) 100 10/20/18 06:45 61 19 25 10/20/18 06:00 98.2 65 17 105/40 (61) 100 10/20/18 05:00 67 17 100/40 (60) 100 10/20/18 04:59 73 18 25 10/20/18 04:00 25 10/20/18 04:00 80 18 104/42 (62) 100 10/20/18 04:00 Endotracheal Tube Mechanical Ventilator 10/20/18 04:00 68 10/20/18 03:08 64 18 25 10/20/18 03:00 65 18 93/42 (59) 100 10/20/18 02:00 67 17 86/40 (55) 100 10/20/18 01:00 67 18 97/42 (60) 100 10/20/18 00:51 69 21 25 10/20/18 00:00 98.2 66 18 100/52 (68) 100 10/20/18 00:00 Endotracheal Tube Mechanical Ventilator 10/19/18 23:00 76 20 116/47 (70) 99 10/19/18 22:38 73 16 25 10/19/18 22:00 72 22 110/43 (65) 100 10/19/18 21:42 72 21 25 10/19/18 21:00 73 19 106/50 (68) 100 10/19/18 20:00 Endotracheal Tube Mechanical Ventilator 10/19/18 20:00 75 10/19/18 20:00 25 10/19/18 20:00 66 19 102/45 (64) 100 10/19/18 19:30 66 102/45 10/19/18 19:21 72 18 25 10/19/18 19:00 75 19 106/60 (75) 99 10/19/18 18:00 98.0 73 20 100/55 (70) 98 10/19/18 17:08 60 18 25 10/19/18 17:00 72 19 109/62 (78) 99 Height (Feet): 5 Height (Inches): 4.00 Weight (Pounds): 139 General Appearance: WD/WN, no acute distress, cachetic HEENT: normocephalic, atraumatic, anicteric, mucous membranes moist, PERRL, supple, no JVD, other - tounge wound Respiratory/Chest: chest wall non-tender, no respiratory distress, no accessory muscle use, decreased breath sounds Cardiovascular: normal peripheral pulses, normal rate, regular rhythm, no gallop/murmur, no JVD Abdomen: normal bowel sounds, soft, non tender, no organomegaly, non distended , no mass, no scars Genitourinary: normal external genitalia Extremities: no cyanosis, no clubbing Skin: no rash, no lesions, no ulcers Neurologic/Psychiatric: alert, unresponsiveness Lymphatic: no neck adenopathy, no groin adenopathy Musculoskeletal: normal muscle bulk, no effusion Laboratory Tests Test 10/20/18 05:30 White Blood Count 4.3 K/UL (4.8-10.8) L Red Blood Count 3.13 M/UL (4.20-5.40) L Hemoglobin 9.4 G/DL (12.0-16.0) L Hematocrit 28.1 % (37.0-47.0) L Mean Corpuscular Volume 90 FL (80-99) Mean Corpuscular Hemoglobin 29.9 PG (27.0-31.0) Mean Corpuscular Hemoglobin Concent 33.3 G/DL (32.0-36.0) Red Cell Distribution Width 13.3 % (11.6-14.8) Platelet Count 343 K/UL (150-450) Mean Platelet Volume 5.7 FL (6.5-10.1) L Neutrophils (%) (Auto) 61.9 % (45.0-75.0) Lymphocytes (%) (Auto) 26.9 % (20.0-45.0) Monocytes (%) (Auto) 7.7 % (1.0-10.0) Eosinophils (%) (Auto) 2.6 % (0.0-3.0) Basophils (%) (Auto) 0.9 % (0.0-2.0) Prothrombin Time 10.6 SEC (9.30-11.50) Prothromb Time International Ratio 1.0 (0.9-1.1) Activated Partial Thromboplast Time 28 SEC (23-33) Sodium Level 141 MMOL/L (136-145) Potassium Level 4.6 MMOL/L (3.5-5.1) Chloride Level 108 MMOL/L (98-107) H Carbon Dioxide Level 26 MMOL/L (21-32) Anion Gap 7 mmol/L (5-15) Blood Urea Nitrogen 19 mg/dL (7-18) H Creatinine 0.9 MG/DL (0.55-1.30) Estimat Glomerular Filtration Rate mL/min (>60) Glucose Level 112 MG/DL (74-106) H Calcium Level 8.3 MG/DL (8.5-10.1) L Phosphorus Level 2.7 MG/DL (2.5-4.9) Magnesium Level 2.3 MG/DL (1.8-2.4) Total Bilirubin 0.3 MG/DL (0.2-1.0) Aspartate Amino Transf (AST/SGOT) 24 U/L (15-37) Alanine Aminotransferase (ALT/SGPT) 28 U/L (12-78) Alkaline Phosphatase 81 U/L (46-116) Total Protein 5.6 G/DL (6.4-8.2) L Albumin 1.7 G/DL (3.4-5.0) L Globulin 3.9 g/dL Albumin/Globulin Ratio 0.4 (1.0-2.7) L Current Medications Medications (Trade) Dose Ordered Sig/Christopher Route PRN Reason Start Time Stop Time Status Last Admin Dose Admin Acetaminophen (Tylenol) 650 mg Q4H PRN GT Mild Pain/Temp > 101 10/13/18 04:30 11/11/18 04:29 10/14/18 05:38 Chlorhexidine Gluconate (Tatiana-Hex 2%) 1 applic DAILY@2000 TOPIC 10/13/18 20:00 11/12/18 19:59 10/19/18 21:28 Dextrose 1,000 ml @ 50 mls/hr Q20H IV 10/16/18 16:30 11/15/18 16:29 10/20/18 00:18 Dextrose (Dextrose 50%) 25 ml Q30M PRN IV Hypoglycemia 10/13/18 03:30 11/11/18 04:29 Dextrose (Dextrose 50%) 50 ml Q30M PRN IV Hypoglycemia 10/13/18 03:30 11/11/18 04:29 Haloperidol Lactate (Haldol) 5 mg Q6H PRN IM Agitation 10/14/18 13:30 11/13/18 13:29 10/14/18 15:37 Insulin Aspart (NovoLOG) EVERY 6 HOURS SUBQ 10/13/18 06:00 11/11/18 06:29 10/20/18 06:27 Meropenem 1 gm/ Sodium Chloride 55 ml @ 110 mls/hr Q12H IVPB 10/14/18 15:00 10/23/18 16:00 10/20/18 15:27 Norepinephrine Bitartrate 4 mg/ Dextrose 250 ml @ 0 mls/hr Q24H IV 10/13/18 09:00 11/12/18 08:59 10/13/18 14:21 Pantoprazole (Protonix) 40 mg DAILY IVP 10/14/18 09:00 11/13/18 08:59 10/20/18 09:12 Penicillin G Potassium 4 mu/ Sodium Chloride 55 ml @ 110 mls/hr Q4H IVPB 10/19/18 20:00 10/26/18 19:59 10/20/18 12:00 Phenylephrine HCl 50 mg/Dextrose 250 ml @ 0 mls/hr Q24H IV 10/13/18 19:30 11/12/18 19:29 Sitagliptin Phosphate (Januvia) 100 mg ACBREAKFAST GT 10/13/18 06:30 11/11/18 06:29 10/20/18 06:27 Porfirio Valentine M.D. Oct 20, 2018 16:45
--- NOTE | 2018-10-20 17:45 | NUR ---
CASE MANAGEMENT: REVIEW SI: SEPSIS . PNA T 98.2 HR 72 RR 18 BP 110/40 SAT 100% MECH VENT FIO2 25 WBC 4.3 H/H 9.4/28.1 IS: MEROPENEM IV Q12HR LEVOPHED IV Q24HR PENICILLIN G IV Q4HR ICU STATUS DCP: PATIENT IS FROM [facility]
--- NOTE | 2018-10-20 19:14 | NUR ---
HAND-OFF: Report given to BOUBACAR Navarro.
--- NOTE | 2018-10-20 19:19 | Cardiology Progress Note ---
Assessment/Plan Assessment/Plan 1. Respiratory failure. 2. Bilateral pneumoniae. 3. History of cerebrovascular accident. 4. Azotemia and renal insufficiency. 5. Anemia. 6. Relative thrombocytopenia 7. tele artifact due to shaking ? related to cough?? 8. bacteremia iv abx pressor as needed vent support tele observation sinsu occasional artifact echo noted Subjective ROS Limited/Unobtainable: Yes Objective Last 24 Hour Vital Signs Date Time Temp Pulse Resp B/P (MAP) Pulse Ox O2 Delivery O2 Flow Rate FiO2 10/20/18 19:00 62 18 112/59 (76) 100 10/20/18 18:00 60 18 109/62 (78) 100 10/20/18 17:32 63 18 25 10/20/18 17:00 66 18 115/59 (77) 100 10/20/18 16:00 98.7 62 17 111/42 (65) 100 10/20/18 16:00 25 10/20/18 16:00 Endotracheal Tube Mechanical Ventilator 10/20/18 16:00 69 10/20/18 15:00 60 18 114/59 (77) 100 10/20/18 14:40 73 18 25 10/20/18 14:00 61 18 110/59 (76) 100 10/20/18 13:10 62 18 25 10/20/18 13:00 60 18 121/56 (77) 100 10/20/18 12:00 98.0 62 17 113/46 (68) 100 10/20/18 12:00 75 10/20/18 12:00 25 10/20/18 12:00 Endotracheal Tube Mechanical Ventilator 10/20/18 11:00 65 18 112/59 (76) 100 10/20/18 10:56 99 10/20/18 10:55 68 22 25 10/20/18 10:00 60 18 115/59 (77) 100 10/20/18 09:10 61 17 25 10/20/18 09:00 60 18 107/41 (63) 100 10/20/18 08:00 Endotracheal Tube Mechanical Ventilator 10/20/18 08:00 98.2 62 17 110/40 (63) 100 10/20/18 08:00 25 10/20/18 08:00 72 10/20/18 07:00 60 18 116/41 (66) 100 10/20/18 06:45 61 19 25 10/20/18 06:00 98.2 65 17 105/40 (61) 100 10/20/18 05:00 67 17 100/40 (60) 100 10/20/18 04:59 73 18 25 10/20/18 04:00 25 10/20/18 04:00 80 18 104/42 (62) 100 10/20/18 04:00 Endotracheal Tube Mechanical Ventilator 10/20/18 04:00 68 10/20/18 03:08 64 18 25 10/20/18 03:00 65 18 93/42 (59) 100 10/20/18 02:00 67 17 86/40 (55) 100 10/20/18 01:00 67 18 97/42 (60) 100 10/20/18 00:51 69 21 25 10/20/18 00:00 98.2 66 18 100/52 (68) 100 10/20/18 00:00 Endotracheal Tube Mechanical Ventilator 10/19/18 23:00 76 20 116/47 (70) 99 10/19/18 22:38 73 16 25 10/19/18 22:00 72 22 110/43 (65) 100 10/19/18 21:42 72 21 25 10/19/18 21:00 73 19 106/50 (68) 100 10/19/18 20:00 Endotracheal Tube Mechanical Ventilator 10/19/18 20:00 75 10/19/18 20:00 25 10/19/18 20:00 66 19 102/45 (64) 100 10/19/18 19:30 66 102/45 10/19/18 19:21 72 18 25 General Appearance: no apparent distress, alert, on vent, patient on isolation Intake and Output 10/19/18 10/20/18 19:00 07:00 Intake Total 525 ml 1240 ml Output Total 1060 ml 960 ml Balance -535 ml 280 ml IV Total 105 ml 820 ml Tube Feeding 420 ml 420 ml Output Urine Total 1060 ml 960 ml # Bowel Movements 1 Laboratory Tests Test 10/20/18 05:30 White Blood Count 4.3 K/UL (4.8-10.8) L Red Blood Count 3.13 M/UL (4.20-5.40) L Hemoglobin 9.4 G/DL (12.0-16.0) L Hematocrit 28.1 % (37.0-47.0) L Mean Corpuscular Volume 90 FL (80-99) Mean Corpuscular Hemoglobin 29.9 PG (27.0-31.0) Mean Corpuscular Hemoglobin Concent 33.3 G/DL (32.0-36.0) Red Cell Distribution Width 13.3 % (11.6-14.8) Platelet Count 343 K/UL (150-450) Mean Platelet Volume 5.7 FL (6.5-10.1) L Neutrophils (%) (Auto) 61.9 % (45.0-75.0) Lymphocytes (%) (Auto) 26.9 % (20.0-45.0) Monocytes (%) (Auto) 7.7 % (1.0-10.0) Eosinophils (%) (Auto) 2.6 % (0.0-3.0) Basophils (%) (Auto) 0.9 % (0.0-2.0) Prothrombin Time 10.6 SEC (9.30-11.50) Prothromb Time International Ratio 1.0 (0.9-1.1) Activated Partial Thromboplast Time 28 SEC (23-33) Sodium Level 141 MMOL/L (136-145) Potassium Level 4.6 MMOL/L (3.5-5.1) Chloride Level 108 MMOL/L (98-107) H Carbon Dioxide Level 26 MMOL/L (21-32) Anion Gap 7 mmol/L (5-15) Blood Urea Nitrogen 19 mg/dL (7-18) H Creatinine 0.9 MG/DL (0.55-1.30) Estimat Glomerular Filtration Rate mL/min (>60) Glucose Level 112 MG/DL (74-106) H Calcium Level 8.3 MG/DL (8.5-10.1) L Phosphorus Level 2.7 MG/DL (2.5-4.9) Magnesium Level 2.3 MG/DL (1.8-2.4) Total Bilirubin 0.3 MG/DL (0.2-1.0) Aspartate Amino Transf (AST/SGOT) 24 U/L (15-37) Alanine Aminotransferase (ALT/SGPT) 28 U/L (12-78) Alkaline Phosphatase 81 U/L (46-116) Total Protein 5.6 G/DL (6.4-8.2) L Albumin 1.7 G/DL (3.4-5.0) L Globulin 3.9 g/dL Albumin/Globulin Ratio 0.4 (1.0-2.7) L Huber Humphrey MD Oct 20, 2018 19:19
[2018-10-20] MEDS: Phenylephrine 50 MG in D5W 245 ML IV SCH (19:30)
--- NOTE | 2018-10-20 19:30 | NUR ---
NURSE NOTES: Received pt in no acute distress. Calm opens eyes to pain. Continues to be orally intubated and appears to be tolerating current vent parameters; fiO2 .25, saturating 96-99%. Having copious oral secretions, thick clear. Scattered rhonchi heard throughout. NSR on the scope; BP stable; afebrile.JOLEEN PICC patent, IVF D5W running at 50ml/h. PEG patent; GTF with Glucerna 1.5 continues at 35ml/h with 0 residuals. FC patent; UOP gd; 75-125ml/h. Will continue to monitor
[2018-10-20] MEDS: Dyna-Hex 2% Top Sol 2oz TOPIC SCH (19:58)
--- NOTE | 2018-10-20 22:00 | NUR ---
NURSE NOTES: Awake. Pt has copious oral secretions. Oral care and suctioning done. Repositioned keeping HOB >30degrees. Tolerating GTF
--- NOTE | 2018-10-20 22:56 | General Progress Note ---
Assessment/Plan Problem List: (1) Toxic encephalopathy ICD Codes: G92 - Toxic encephalopathy SNOMED: 46933970 Assessment/Plan Haldol 5mg Im q6hr prn/agitation dw RN Subjective Allergies: Coded Allergies: No Known Allergies (Verified , 08/14/06) Subjective the pt is more manageable and less agitated Objective Last 24 Hour Vital Signs Date Time Temp Pulse Resp B/P (MAP) Pulse Ox O2 Delivery O2 Flow Rate FiO2 10/20/18 22:00 62 18 108/43 (64) 98 10/20/18 21:03 66 18 25 10/20/18 21:00 60 18 98/42 (60) 98 10/20/18 20:00 Endotracheal Tube Mechanical Ventilator 10/20/18 20:00 60 10/20/18 20:00 25 10/20/18 20:00 97.7 60 18 102/45 (64) 100 10/20/18 19:30 62 97/44 10/20/18 19:28 63 18 25 10/20/18 19:00 62 18 112/59 (76) 100 10/20/18 18:00 60 18 109/62 (78) 100 10/20/18 17:32 63 18 25 10/20/18 17:00 66 18 115/59 (77) 100 10/20/18 16:00 98.7 62 17 111/42 (65) 100 10/20/18 16:00 25 10/20/18 16:00 Endotracheal Tube Mechanical Ventilator 10/20/18 16:00 69 10/20/18 15:00 60 18 114/59 (77) 100 10/20/18 14:40 73 18 25 10/20/18 14:00 61 18 110/59 (76) 100 10/20/18 13:10 62 18 25 10/20/18 13:00 60 18 121/56 (77) 100 10/20/18 12:00 98.0 62 17 113/46 (68) 100 10/20/18 12:00 75 10/20/18 12:00 25 10/20/18 12:00 Endotracheal Tube Mechanical Ventilator 10/20/18 11:00 65 18 112/59 (76) 100 10/20/18 10:56 99 10/20/18 10:55 68 22 25 10/20/18 10:00 60 18 115/59 (77) 100 10/20/18 09:10 61 17 25 10/20/18 09:00 60 18 107/41 (63) 100 10/20/18 08:00 Endotracheal Tube Mechanical Ventilator 10/20/18 08:00 98.2 62 17 110/40 (63) 100 10/20/18 08:00 25 10/20/18 08:00 72 10/20/18 07:00 60 18 116/41 (66) 100 10/20/18 06:45 61 19 25 10/20/18 06:00 98.2 65 17 105/40 (61) 100 10/20/18 05:00 67 17 100/40 (60) 100 10/20/18 04:59 73 18 25 10/20/18 04:00 25 10/20/18 04:00 80 18 104/42 (62) 100 10/20/18 04:00 Endotracheal Tube Mechanical Ventilator 10/20/18 04:00 68 10/20/18 03:08 64 18 25 10/20/18 03:00 65 18 93/42 (59) 100 10/20/18 02:00 67 17 86/40 (55) 100 10/20/18 01:00 67 18 97/42 (60) 100 10/20/18 00:51 69 21 25 10/20/18 00:00 98.2 66 18 100/52 (68) 100 10/20/18 00:00 Endotracheal Tube Mechanical Ventilator 10/19/18 23:00 76 20 116/47 (70) 99 Intake and Output 10/19/18 10/20/18 19:00 07:00 Intake Total 525 ml 1240 ml Output Total 1060 ml 960 ml Balance -535 ml 280 ml IV Total 105 ml 820 ml Tube Feeding 420 ml 420 ml Output Urine Total 1060 ml 960 ml # Bowel Movements 1 Laboratory Tests 10/20/18 05:30: White Blood Count 4.3L, Red Blood Count 3.13L, Hemoglobin 9.4L, Hematocrit 28.1L , Mean Corpuscular Volume 90, Mean Corpuscular Hemoglobin 29.9, Mean Corpuscular Hemoglobin Concent 33.3, Red Cell Distribution Width 13.3, Platelet Count 343, Mean Platelet Volume 5.7L, Neutrophils (%) (Auto) 61.9, Lymphocytes ( %) (Auto) 26.9, Monocytes (%) (Auto) 7.7, Eosinophils (%) (Auto) 2.6, Basophils (%) (Auto) 0.9, Prothrombin Time 10.6, Prothromb Time International Ratio 1.0, Activated Partial Thromboplast Time 28, Sodium Level 141, Potassium Level 4.6, Chloride Level 108H, Carbon Dioxide Level 26, Anion Gap 7, Blood Urea Nitrogen 19H, Creatinine 0.9, Estimat Glomerular Filtration Rate , Glucose Level 112H, Calcium Level 8.3L, Phosphorus Level 2.7, Magnesium Level 2.3, Total Bilirubin 0.3, Aspartate Amino Transf (AST/SGOT) 24, Alanine Aminotransferase (ALT/SGPT) 28, Alkaline Phosphatase 81, Total Protein 5.6L, Albumin 1.7L, Globulin 3.9, Albumin/Globulin Ratio 0.4L Height (Feet): 5 Height (Inches): 4.00 Weight (Pounds): 139 General Appearance: lethargic, confused, agitated Trever Easley MD Oct 20, 2018 22:56
[2018-10-21] VITALS (24 sets, daily range): BP systolic 98–120; BP diastolic 41–64
--- NOTE | 2018-10-21 | NUR ---
NURSE NOTES: Asleep, Afebrile; BP stable. No distress otherwise. NSR .
--- NOTE | 2018-10-21 02:00 | NUR ---
NURSE NOTES: Calm, asleep. No distress, VSS
[2018-10-21] MEDS: Meropenem 1 GM in NS 55 ML IVPB SCH ×2 (02:27→15:00)
[2018-10-21] MEDS: Penicillin G Potassium 4 MU in NS 55 ML IVPB SCH ×5 (03:50→20:44)
--- NOTE | 2018-10-21 04:00 | NUR ---
NURSE NOTES: Incontinent of mod amt of formed stool; greenish color.Complete bed bath done with CHG. PICC line dressing dry and intact, GT exit site dressing changed. Applied optifoam dressing to sacral area but skin intact. afebrile. BP stable.
[2018-10-21] MEDS: NovoLOG Insulin Flexpen SUBQ SCH ×3 (06:24→18:00)
--- NOTE | 2018-10-21 07:01 | NUR ---
RESPIRATORY NOTE: Patient received mechanically ventilated on PB 840 with current ordered vent settings. Patient is orally intubated with EET tube size 7.0 with 23cm at the lip and it is secured with an anchor fast. Bilateral coarse breath sounds were present upon auscultation and small amount to thick white secretions were suctioned without incident. There is an ambu bag available at the bedside and the vent is connected to a red outlet. Vent alarms are functional and audible. Will continue to monitor.
--- NOTE | 2018-10-21 07:14 | NUR ---
HAND-OFF: Report given to Aga HAMLIN.
[2018-10-21 07:20] LABS: BASOPHILS % (AUTO) 0.8 % (0.0-2.0); EOSINOPHILS % (AUTO) 2.4 % (0.0-3.0); HEMOGLOBIN 9.7 G/DL (12.0-16.0); LYMPHOCYTES % (AUTO) 30.5 % (20.0-45.0); MEAN CORPUSCULAR VOLUME 90 FL (80-99); MONOCYTES % (AUTO) 6.7 % (1.0-10.0); NEUTROPHILS % (AUTO) 59.6 % (45.0-75.0); PLATELET COUNT 373 K/UL (150-450); RED BLOOD COUNT 3.21 M/UL (4.20-5.40); RED CELL DISTRIBUTION WIDTH 13.2 % (11.6-14.8); WHITE BLOOD COUNT 5.2 K/UL (4.8-10.8)
[2018-10-21 07:42] LABS: ALANINE AMINOTRANSFERASE 29 U/L (12-78); ALBUMIN 1.7 G/DL (3.4-5.0); ALBUMIN/GLOBULIN RATIO 0.4 (1.0-2.7); ALKALINE PHOSPHATASE 86 U/L (46-116); ANION GAP 6 mmol/L (5-15); ASPARTATE AMINO TRANSFERASE 33 U/L (15-37); BILIRUBIN,TOTAL 0.3 MG/DL (0.2-1.0); BLOOD UREA NITROGEN 19 mg/dL (7-18); CALCIUM 8.5 MG/DL (8.5-10.1); CARBON DIOXIDE 28 MMOL/L (21-32); CHLORIDE 107 MMOL/L (98-107); CREATININE 0.8 MG/DL (0.55-1.30); SODIUM 140 MMOL/L (136-145)
--- NOTE | 2018-10-21 08:00 | NUR ---
NURSE NOTES: Received Pt in no acute distress. Opens eyes spontaneously but non verbal due to ETT 7.0, 21lipline, AC 18, TV 450, FiO2 25%, Peep 5. Appears to be tolerating current vent parameters, saturating 100%., secretions pinkish, thick, copious via ETT and orally, lung sounds diminished bilaterally. Contracted on all 4 extremities. SR on the surveillance system monitor. ; Bp stable; afebrile. GTF with Glucerna 1.5 running at 35ml/h with 15 residuals. Round, nontender abdomen. Roberts 16Fr patent, draining clear yellow urine; PICC on JOLEEN intact, IVF of D5W infusing 50ml/h. HOB kept elevated. Bed in low and locked position. Call light within reach. Bed alarm on. Will continue to monitor patient.
[2018-10-21] MEDS: Pantoprazole Inj IVP SCH (08:25)
--- NOTE | 2018-10-21 09:16 | NUR ---
RADIOLOGY DEPT CHEST X-RAY DONE.-P.DYE
--- NOTE | 2018-10-21 10:00 | NUR ---
NURSE NOTES: Patient turned and repositioned. No changes in patient condition. Remains stable. No new orders. Will continue to monitor patient.
--- NOTE | 2018-10-21 10:18 | Pulmonolgy Critical Care Note ---
Critical Care - Asmt/Plan Problems: (1) Acute respiratory failure (2) Healthcare-associated pneumonia (3) Sepsis (4) Diabetes mellitus type II, uncontrolled (5) Feeding by G-tube (6) Hemiparesis affecting left side as late effect of cerebrovascular accident Respiratory: monitor respiratory rate, adjust FIO2 Cardiac: continue to monitor HR/BP Renal: F/U I&O, keep IV fluid Infectious Disease: check cultures Gastrointestinal: continue feedings/current rate Endocrine: check TSH Hematologic: monitor H/H, transfuse if hgb<8.5 Neurologic: PRN Ativan, keep patient comfortable Affect: PRN ativan Prophylaxis: Protonix Notes Reviewed: cardio Discussed with: nurses, consultants, correctional case records supervisorchannel marketing program manager - Objective Last 24 Hour Vital Signs Date Time Temp Pulse Resp B/P (MAP) Pulse Ox O2 Delivery O2 Flow Rate FiO2 10/21/18 10:00 66 18 120/48 (72) 98 10/21/18 09:00 68 18 115/45 (68) 98 10/21/18 08:44 58 18 25 10/21/18 08:25 108/45 10/21/18 08:00 25 10/21/18 08:00 80 10/21/18 08:00 Endotracheal Tube Mechanical Ventilator 10/21/18 08:00 98.8 80 18 118/58 (78) 99 10/21/18 07:00 62 18 111/44 (66) 98 10/21/18 06:55 56 18 25 10/21/18 06:00 62 18 119/50 (73) 98 10/21/18 05:21 55 18 25 10/21/18 05:00 57 19 98/41 (60) 98 10/21/18 04:00 Endotracheal Tube Mechanical Ventilator 10/21/18 04:00 69 10/21/18 04:00 25 10/21/18 04:00 98.7 69 19 112/52 (72) 98 10/21/18 03:08 66 21 25 10/21/18 03:00 68 23 112/49 (70) 97 10/21/18 02:00 61 18 104/57 (73) 98 10/21/18 01:00 71 18 120/44 (69) 100 10/21/18 00:50 62 18 25 10/21/18 00:00 98.3 63 18 100/43 (62) 100 10/21/18 00:00 Endotracheal Tube Mechanical Ventilator 10/21/18 00:00 25 10/20/18 23:05 65 18 25 10/20/18 23:00 62 18 104/41 (62) 99 10/20/18 22:00 62 18 108/43 (64) 98 10/20/18 21:03 66 18 25 10/20/18 21:00 60 18 98/42 (60) 98 10/20/18 20:00 Endotracheal Tube Mechanical Ventilator 10/20/18 20:00 60 10/20/18 20:00 25 10/20/18 20:00 97.7 60 18 102/45 (64) 100 10/20/18 19:30 62 97/44 10/20/18 19:28 63 18 25 10/20/18 19:00 62 18 112/59 (76) 100 10/20/18 18:00 60 18 109/62 (78) 100 10/20/18 17:32 63 18 25 10/20/18 17:00 66 18 115/59 (77) 100 10/20/18 16:00 98.7 62 17 111/42 (65) 100 10/20/18 16:00 25 10/20/18 16:00 Endotracheal Tube Mechanical Ventilator 10/20/18 16:00 69 10/20/18 15:00 60 18 114/59 (77) 100 10/20/18 14:40 73 18 25 10/20/18 14:00 61 18 110/59 (76) 100 10/20/18 13:10 62 18 25 10/20/18 13:00 60 18 121/56 (77) 100 10/20/18 12:00 98.0 62 17 113/46 (68) 100 10/20/18 12:00 75 10/20/18 12:00 25 10/20/18 12:00 Endotracheal Tube Mechanical Ventilator 10/20/18 11:00 65 18 112/59 (76) 100 10/20/18 10:56 99 10/20/18 10:55 68 22 25 Status: awake HEENT: atraumatic Lungs: clear Heart: HR/BP stable, regular Abdomen: non-tender, active bowel sounds Extremities: no C/C/E, edema Decubiti: location Micro: Microbiology Date/Time Source Procedure Growth Status 10/19/18 18:45 Blood Blood Culture - Preliminary NO GROWTH AFTER 24 HOURS Resulted 10/19/18 18:40 Blood Blood Culture - Preliminary NO GROWTH AFTER 24 HOURS Resulted Accucheck: 113 Critical Care - Subjective ROS Limited/Unobtainable: Yes Interval Events: didn't tolerate weaning yesterday Condition: critical EKG Rhythm: Sinus Rhythm FI02: 25 Vent Support Breath Rate: 18 Vent Support Mode: AC Vent Tidal Volume: 450 Sputum Amount: Small PEEP: 5.0 PIP: 24 Tube Feeding Amount: 35 I&O: Intake and Output 10/20/18 10/21/18 19:00 07:00 Intake Total 1135 ml 1190 ml Output Total 1120 ml 1475 ml Balance 15 ml -285 ml IV Total 715 ml 770 ml Tube Feeding 420 ml 420 ml Output Urine Total 1120 ml 1475 ml # Bowel Movements 1 2 CXR: no change ET-Tube: 7.0 ET Position: 23 Labs: Laboratory Tests Test 10/21/18 05:49 White Blood Count 5.2 K/UL (4.8-10.8) Red Blood Count 3.21 M/UL (4.20-5.40) L Hemoglobin 9.7 G/DL (12.0-16.0) L Hematocrit 29.0 % (37.0-47.0) L Mean Corpuscular Volume 90 FL (80-99) Mean Corpuscular Hemoglobin 30.2 PG (27.0-31.0) Mean Corpuscular Hemoglobin Concent 33.4 G/DL (32.0-36.0) Red Cell Distribution Width 13.2 % (11.6-14.8) Platelet Count 373 K/UL (150-450) Mean Platelet Volume 5.7 FL (6.5-10.1) L Neutrophils (%) (Auto) 59.6 % (45.0-75.0) Lymphocytes (%) (Auto) 30.5 % (20.0-45.0) Monocytes (%) (Auto) 6.7 % (1.0-10.0) Eosinophils (%) (Auto) 2.4 % (0.0-3.0) Basophils (%) (Auto) 0.8 % (0.0-2.0) Sodium Level 140 MMOL/L (136-145) Potassium Level 5.0 MMOL/L (3.5-5.1) Chloride Level 107 MMOL/L (98-107) Carbon Dioxide Level 28 MMOL/L (21-32) Anion Gap 6 mmol/L (5-15) Blood Urea Nitrogen 19 mg/dL (7-18) H Creatinine 0.8 MG/DL (0.55-1.30) Estimat Glomerular Filtration Rate mL/min (>60) Glucose Level 113 MG/DL (74-106) H Calcium Level 8.5 MG/DL (8.5-10.1) Total Bilirubin 0.3 MG/DL (0.2-1.0) Aspartate Amino Transf (AST/SGOT) 33 U/L (15-37) Alanine Aminotransferase (ALT/SGPT) 29 U/L (12-78) Alkaline Phosphatase 86 U/L (46-116) Pro-B-Type Natriuretic Peptide 1336 pg/mL (0-125) H Total Protein 6.0 G/DL (6.4-8.2) L Albumin 1.7 G/DL (3.4-5.0) L Globulin 4.3 g/dL Albumin/Globulin Ratio 0.4 (1.0-2.7) L Barbara Sky MD Oct 21, 2018 10:18
--- NOTE | 2018-10-21 11:03 | NUR ---
RD ASSESSMENT & RECOMMENDATIONS SEE CARE ACTIVITY FOR COMPLETE ASSESSMENT DAILY ESTIMATED NEEDS: Needs based on DM, critical care, sepsis 55.5kg 22-28 kcals/kg 6527-0191 total kcals 1.2-2 g protein/kg 66-111 g total protein 25-30 mL/kg 4498-2804 total fluid mLs NUTRITION DIAGNOSIS: 1) Swallowing difficulty R/T dysphagia as evidenced by pt on GT feeding CURRENT TF:Glucerna 1.5 @ 35ml/hr x 24 hrs ENTERAL NUTRITION RECOMMENDATIONS: Glucerna 1.5 @ 40ml/hr x 24 hrs to provide 960ml, 1440kcal, 79g pro, 729ml free water -Rec INCREASE Glucerna 1.5 to goal of 40ml/hr to better meet est needs -HOB over 30 degrees, flush per MD ADDITIONAL RECOMMENDATIONS: * Add JO-ANN BID for skin integrity (w/ healed sacral wound) * RE-calibrate bed scale for accurate CBW -> conflicting wts- Adm wt: 114#, EMR wt: 125#, Bed wt: 133# * Monitor HD stability- pressors held at this time * Lytes daily, replete as needed * Consider DC or lower IVF- edematous, Na normalized, TF running @ goal .
--- NOTE | 2018-10-21 12:00 | NUR ---
NURSE NOTES: Patient turned and repositioned. No new orders at this time. Will continue plan of care.
--- NOTE | 2018-10-21 14:00 | NUR ---
NURSE NOTES: Patient turned and repositioned. VSS. No new orders at this time.
--- NOTE | 2018-10-21 16:00 | NUR ---
NURSE NOTES: Patient continues to need frequent suctioning due to oral and endotracheal mucus amount. Constantly drooling. No new orders will continue plan of care.
--- NOTE | 2018-10-21 16:50 | Diagnostic Imaging Report ---
Indication: Dyspnea Technique: One view of the chest Comparison: 10/20/2018 Findings: Stable satisfactory position of endotracheal tube and right arm PICC. Bilateral pleural effusions, right greater than left parenchymal opacities are unchanged. The heart size is normal Impression: Unchanged, over one day, findings as above.
--- NOTE | 2018-10-21 16:50 | Infectious Diseases Prog Note ---
Assessment/Plan Problems: (1) Aspiration pneumonia Assessment & Plan: due to pseudomonas aeruginosa and proteus mirabilis , continue meropenem for two weeks , aspiration precaution with aggressive suctioning , keep HOB > 30 degree .monitor CXR. EOT 10/28/18 (2) Sepsis Assessment & Plan: with strep viridans and lactobacillus spp suspect GI source most likely malignancy , continue penicillin G for two weeks at least . recommend colonoscopy in the future to rule colon CA . will repeat blood culture to confirm clearance (3) Acute respiratory failure Assessment & Plan: due to the above , intubated on mechanical ventilation , monitor CXR and ABG. pulmonary is following, failed weaning trials so far, VENTILATOR DEPENDANT . may need tracheostomy (4) Diabetes mellitus type II, uncontrolled Assessment & Plan: recommend tight glycemic control to keep blood glucose between 100-140 (5) JEFFY (acute kidney injury) Assessment & Plan: improved, due to hypotension and sepsis, continue hydration , monitor renal function, and UOP Subjective ROS Limited/Unobtainable: Yes Allergies: Coded Allergies: No Known Allergies (Verified , 08/14/06) Subjective she was still intubated , on mechanical ventilation in ICU , more awake, no fever. no diarrhea , has less secretions, on weaning trials. Objective Vital Signs Last 24 Hour Vital Signs Date Time Temp Pulse Resp B/P (MAP) Pulse Ox O2 Delivery O2 Flow Rate FiO2 10/21/18 16:00 58 10/21/18 16:00 25 10/21/18 16:00 Endotracheal Tube Mechanical Ventilator 10/21/18 16:00 98.9 68 18 118/55 (76) 98 10/21/18 15:06 60 19 25 10/21/18 15:00 57 18 108/50 (69) 98 10/21/18 14:00 58 18 110/52 (71) 98 10/21/18 13:05 60 18 25 10/21/18 13:00 57 18 112/48 (69) 98 10/21/18 12:00 25 10/21/18 12:00 98.7 58 19 110/50 (70) 99 10/21/18 12:00 57 10/21/18 12:00 Endotracheal Tube Mechanical Ventilator 10/21/18 11:00 67 18 116/45 (68) 98 10/21/18 10:46 68 18 25 10/21/18 10:00 66 18 120/48 (72) 98 10/21/18 09:00 68 18 115/45 (68) 98 10/21/18 08:44 58 18 25 10/21/18 08:25 108/45 10/21/18 08:00 25 10/21/18 08:00 61 10/21/18 08:00 Endotracheal Tube Mechanical Ventilator 10/21/18 08:00 98.8 80 18 118/58 (78) 99 10/21/18 07:00 62 18 111/44 (66) 98 10/21/18 06:55 56 18 25 10/21/18 06:00 62 18 119/50 (73) 98 10/21/18 05:21 55 18 25 10/21/18 05:00 57 19 98/41 (60) 98 10/21/18 04:00 Endotracheal Tube Mechanical Ventilator 10/21/18 04:00 69 10/21/18 04:00 25 10/21/18 04:00 98.7 69 19 112/52 (72) 98 10/21/18 03:08 66 21 25 10/21/18 03:00 68 23 112/49 (70) 97 10/21/18 02:00 61 18 104/57 (73) 98 10/21/18 01:00 71 18 120/44 (69) 100 10/21/18 00:50 62 18 25 10/21/18 00:00 98.3 63 18 100/43 (62) 100 10/21/18 00:00 Endotracheal Tube Mechanical Ventilator 10/21/18 00:00 25 10/20/18 23:05 65 18 25 10/20/18 23:00 62 18 104/41 (62) 99 10/20/18 22:00 62 18 108/43 (64) 98 10/20/18 21:03 66 18 25 10/20/18 21:00 60 18 98/42 (60) 98 10/20/18 20:00 Endotracheal Tube Mechanical Ventilator 10/20/18 20:00 60 10/20/18 20:00 25 10/20/18 20:00 97.7 60 18 102/45 (64) 100 10/20/18 19:30 62 97/44 10/20/18 19:28 63 18 25 10/20/18 19:00 62 18 112/59 (76) 100 10/20/18 18:00 60 18 109/62 (78) 100 10/20/18 17:32 63 18 25 10/20/18 17:00 66 18 115/59 (77) 100 Height (Feet): 5 Height (Inches): 4.00 Weight (Pounds): 140 General Appearance: WD/WN, no acute distress HEENT: normocephalic, atraumatic, anicteric, mucous membranes moist, PERRL Respiratory/Chest: chest wall non-tender, no respiratory distress, no accessory muscle use, decreased breath sounds Cardiovascular: normal peripheral pulses, normal rate, regular rhythm, no gallop/murmur, no JVD Abdomen: normal bowel sounds, soft, non tender, no organomegaly, non distended , no mass, no scars Extremities: no cyanosis, no clubbing Skin: no rash, no lesions, no ulcers Neurologic/Psychiatric: alert, unresponsiveness Lymphatic: no neck adenopathy, no groin adenopathy Musculoskeletal: normal muscle bulk, no effusion Microbiology Date/Time Source Procedure Growth Status 10/19/18 18:45 Blood Blood Culture - Preliminary NO GROWTH AFTER 24 HOURS Resulted 10/19/18 18:40 Blood Blood Culture - Preliminary NO GROWTH AFTER 24 HOURS Resulted Laboratory Tests Test 10/21/18 05:49 White Blood Count 5.2 K/UL (4.8-10.8) Red Blood Count 3.21 M/UL (4.20-5.40) L Hemoglobin 9.7 G/DL (12.0-16.0) L Hematocrit 29.0 % (37.0-47.0) L Mean Corpuscular Volume 90 FL (80-99) Mean Corpuscular Hemoglobin 30.2 PG (27.0-31.0) Mean Corpuscular Hemoglobin Concent 33.4 G/DL (32.0-36.0) Red Cell Distribution Width 13.2 % (11.6-14.8) Platelet Count 373 K/UL (150-450) Mean Platelet Volume 5.7 FL (6.5-10.1) L Neutrophils (%) (Auto) 59.6 % (45.0-75.0) Lymphocytes (%) (Auto) 30.5 % (20.0-45.0) Monocytes (%) (Auto) 6.7 % (1.0-10.0) Eosinophils (%) (Auto) 2.4 % (0.0-3.0) Basophils (%) (Auto) 0.8 % (0.0-2.0) Sodium Level 140 MMOL/L (136-145) Potassium Level 5.0 MMOL/L (3.5-5.1) Chloride Level 107 MMOL/L (98-107) Carbon Dioxide Level 28 MMOL/L (21-32) Anion Gap 6 mmol/L (5-15) Blood Urea Nitrogen 19 mg/dL (7-18) H Creatinine 0.8 MG/DL (0.55-1.30) Estimat Glomerular Filtration Rate mL/min (>60) Glucose Level 113 MG/DL (74-106) H Calcium Level 8.5 MG/DL (8.5-10.1) Total Bilirubin 0.3 MG/DL (0.2-1.0) Aspartate Amino Transf (AST/SGOT) 33 U/L (15-37) Alanine Aminotransferase (ALT/SGPT) 29 U/L (12-78) Alkaline Phosphatase 86 U/L (46-116) Pro-B-Type Natriuretic Peptide 1336 pg/mL (0-125) H Total Protein 6.0 G/DL (6.4-8.2) L Albumin 1.7 G/DL (3.4-5.0) L Globulin 4.3 g/dL Albumin/Globulin Ratio 0.4 (1.0-2.7) L Current Medications Medications (Trade) Dose Ordered Sig/Christopher Route PRN Reason Start Time Stop Time Status Last Admin Dose Admin Acetaminophen (Tylenol) 650 mg Q4H PRN GT Mild Pain/Temp > 101 10/13/18 04:30 11/11/18 04:29 10/14/18 05:38 Chlorhexidine Gluconate (Tatiana-Hex 2%) 1 applic DAILY@2000 TOPIC 10/13/18 20:00 11/12/18 19:59 10/20/18 19:58 Dextrose 1,000 ml @ 50 mls/hr Q20H IV 10/16/18 16:30 11/15/18 16:29 10/20/18 20:02 Dextrose (Dextrose 50%) 25 ml Q30M PRN IV Hypoglycemia 10/13/18 03:30 11/11/18 04:29 Dextrose (Dextrose 50%) 50 ml Q30M PRN IV Hypoglycemia 10/13/18 03:30 11/11/18 04:29 Haloperidol Lactate (Haldol) 5 mg Q6H PRN IM Agitation 10/14/18 13:30 11/13/18 13:29 10/14/18 15:37 Insulin Aspart (NovoLOG) EVERY 6 HOURS SUBQ 10/13/18 06:00 11/11/18 06:29 10/21/18 12:36 Meropenem 1 gm/ Sodium Chloride 55 ml @ 110 mls/hr Q12H IVPB 10/14/18 15:00 10/23/18 16:00 10/21/18 15:00 Norepinephrine Bitartrate 4 mg/ Dextrose 250 ml @ 0 mls/hr Q24H IV 10/13/18 09:00 11/12/18 08:59 10/13/18 14:21 Pantoprazole (Protonix) 40 mg DAILY IVP 10/14/18 09:00 11/13/18 08:59 10/21/18 08:25 Penicillin G Potassium 4 mu/ Sodium Chloride 55 ml @ 110 mls/hr Q4H IVPB 10/19/18 20:00 10/26/18 19:59 10/21/18 12:00 Phenylephrine HCl 50 mg/Dextrose 250 ml @ 0 mls/hr Q24H IV 10/13/18 19:30 11/12/18 19:29 Sitagliptin Phosphate (Januvia) 100 mg ACBREAKFAST GT 10/13/18 06:30 11/11/18 06:29 10/21/18 06:25 Porfirio Valentine M.D. Oct 21, 2018 16:50
--- NOTE | 2018-10-21 18:00 | NUR ---
NURSE NOTES: Patient turned and repositioned. No new orders at this time. Family insists that "we need to suction less to not irritate her." Uncooperative family. Doctor nelson notified to call and speak to family member. Doctor confirmed he will. Will continue plan of care.
--- NOTE | 2018-10-21 18:22 | Internal Med Progress Note ---
Subjective Date of Service: Oct 21, 2018 Physician Name Dimitrios Daly Attending Physician Tereso Toro MD Current Medications Medications (Trade) Dose Ordered Sig/Christopher Route PRN Reason Start Time Stop Time Status Last Admin Dose Admin Acetaminophen (Tylenol) 650 mg Q4H PRN GT Mild Pain/Temp > 101 10/13/18 04:30 11/11/18 04:29 10/14/18 05:38 Chlorhexidine Gluconate (Tatiana-Hex 2%) 1 applic DAILY@2000 TOPIC 10/13/18 20:00 11/12/18 19:59 10/20/18 19:58 Dextrose 1,000 ml @ 50 mls/hr Q20H IV 10/16/18 16:30 11/15/18 16:29 10/20/18 20:02 Dextrose (Dextrose 50%) 25 ml Q30M PRN IV Hypoglycemia 10/13/18 03:30 11/11/18 04:29 Dextrose (Dextrose 50%) 50 ml Q30M PRN IV Hypoglycemia 10/13/18 03:30 11/11/18 04:29 Haloperidol Lactate (Haldol) 5 mg Q6H PRN IM Agitation 10/14/18 13:30 11/13/18 13:29 10/14/18 15:37 Insulin Aspart (NovoLOG) EVERY 6 HOURS SUBQ 10/13/18 06:00 11/11/18 06:29 10/21/18 12:36 Meropenem 1 gm/ Sodium Chloride 55 ml @ 110 mls/hr Q12H IVPB 10/14/18 15:00 10/23/18 16:00 10/21/18 15:00 Norepinephrine Bitartrate 4 mg/ Dextrose 250 ml @ 0 mls/hr Q24H IV 10/13/18 09:00 11/12/18 08:59 10/13/18 14:21 Pantoprazole (Protonix) 40 mg DAILY IVP 10/14/18 09:00 11/13/18 08:59 10/21/18 08:25 Penicillin G Potassium 4 mu/ Sodium Chloride 55 ml @ 110 mls/hr Q4H IVPB 10/19/18 20:00 10/26/18 19:59 10/21/18 16:00 Phenylephrine HCl 50 mg/Dextrose 250 ml @ 0 mls/hr Q24H IV 10/13/18 19:30 11/12/18 19:29 Sitagliptin Phosphate (Januvia) 100 mg ACBREAKFAST GT 10/13/18 06:30 11/11/18 06:29 10/21/18 06:25 Allergies: Coded Allergies: No Known Allergies (Verified , 08/14/06) ROS Limited/Unobtainable: Yes Subjective 78 YO F admitted with pneumonia. Now sepsis and hypotension. Intubated and sedated. ICU. Cover for Int Los-Dr Toro. Continues on levophed and phenylphrine Objective Last Vital Signs Date Time Temp Pulse Resp B/P (MAP) Pulse Ox O2 Delivery O2 Flow Rate FiO2 10/21/18 17:00 58 18 110/58 (75) 98 10/21/18 16:59 25 10/21/18 16:00 Endotracheal Tube Mechanical Ventilator 10/21/18 16:00 98.9 10/12/18 20:00 5.0 5.0 Laboratory Tests Test 10/21/18 05:49 White Blood Count 5.2 K/UL (4.8-10.8) Red Blood Count 3.21 M/UL (4.20-5.40) L Hemoglobin 9.7 G/DL (12.0-16.0) L Hematocrit 29.0 % (37.0-47.0) L Mean Corpuscular Volume 90 FL (80-99) Mean Corpuscular Hemoglobin 30.2 PG (27.0-31.0) Mean Corpuscular Hemoglobin Concent 33.4 G/DL (32.0-36.0) Red Cell Distribution Width 13.2 % (11.6-14.8) Platelet Count 373 K/UL (150-450) Mean Platelet Volume 5.7 FL (6.5-10.1) L Neutrophils (%) (Auto) 59.6 % (45.0-75.0) Lymphocytes (%) (Auto) 30.5 % (20.0-45.0) Monocytes (%) (Auto) 6.7 % (1.0-10.0) Eosinophils (%) (Auto) 2.4 % (0.0-3.0) Basophils (%) (Auto) 0.8 % (0.0-2.0) Sodium Level 140 MMOL/L (136-145) Potassium Level 5.0 MMOL/L (3.5-5.1) Chloride Level 107 MMOL/L (98-107) Carbon Dioxide Level 28 MMOL/L (21-32) Anion Gap 6 mmol/L (5-15) Blood Urea Nitrogen 19 mg/dL (7-18) H Creatinine 0.8 MG/DL (0.55-1.30) Estimat Glomerular Filtration Rate mL/min (>60) Glucose Level 113 MG/DL (74-106) H Calcium Level 8.5 MG/DL (8.5-10.1) Total Bilirubin 0.3 MG/DL (0.2-1.0) Aspartate Amino Transf (AST/SGOT) 33 U/L (15-37) Alanine Aminotransferase (ALT/SGPT) 29 U/L (12-78) Alkaline Phosphatase 86 U/L (46-116) Pro-B-Type Natriuretic Peptide 1336 pg/mL (0-125) H Total Protein 6.0 G/DL (6.4-8.2) L Albumin 1.7 G/DL (3.4-5.0) L Globulin 4.3 g/dL Albumin/Globulin Ratio 0.4 (1.0-2.7) L Microbiology Date/Time Source Procedure Growth Status 10/19/18 18:45 Blood Blood Culture - Preliminary NO GROWTH AFTER 24 HOURS Resulted 10/19/18 18:40 Blood Blood Culture - Preliminary NO GROWTH AFTER 24 HOURS Resulted Intake and Output 10/20/18 10/21/18 19:00 07:00 Intake Total 1135 ml 1190 ml Output Total 1120 ml 1475 ml Balance 15 ml -285 ml IV Total 715 ml 770 ml Tube Feeding 420 ml 420 ml Output Urine Total 1120 ml 1475 ml # Bowel Movements 1 2 Objective General Appearance: WD/WN, moderate distress, lethargic EENT: PERRL/EOMI, normal ENT inspection Neck: non-tender, normal alignment, supple Cardiovascular: normal peripheral pulses, normal rate, regular rhythm, no gallop/murmur, no JVD Respiratory/Chest: Mech Vent; respiratory distress, crackles/rales, rhonchi - bilaterally, expiratory wheezing Abdomen: normal bowel sounds, non tender, soft, no organomegaly, no mass 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 Failed weaning protocol (4) Sepsis (5) Diabetes mellitus type II, uncontrolled (6) HTN (hypertension) (7) Hemiparesis affecting left side as late effect of cerebrovascular accident (8) Healthcare-associated pneumonia Assessment & Plan: Continue vanco and Meropenem per ID (9) Hypotension Assessment & Plan: due to sepsis; continue levophed (10) Sepsis (11) Diarrhea Assessment & Plan: stool for C. Diff and cult and sens (12) Elevated troponin Assessment & Plan: See cardiology note. (13) CHF (congestive heart failure) Assessment/Plan Discussed with Emily rios via telephone. Dimitrios Daly MD Oct 21, 2018 18:22
--- NOTE | 2018-10-21 19:19 | NUR ---
HAND-OFF: Report given to Marlen HAMLIN using SBAR. VSS. No distress noted.
--- NOTE | 2018-10-21 19:20 | NUR ---
NURSE NOTES: Received report from BOUBACAR Yung. Patient ETT 7.0, 21lipline, AC 18, TV 450, FiO2 25%, Peep 5. Appears to be tolerating current vent parameters, saturating 100%.No s/s of cardiac and acute distress noted. HOB elevated. Contracted on all 4 extremities. SB on the engine monitor, HR 56. GTF with Glucerna 1.5 running at 35ml/h no residuals. Round, nontender abdomen. Roberts 16Fr patent, draining clear yellow urine; PICC on JOLEEN intact, IVF of D5W infusing 50ml/h. HOB kept elevated. Bed in low and locked position. Contact isolation maintained and observed. Call light within reach. Bed alarm on. Will continue to monitor patient.
[2018-10-21] MEDS: Phenylephrine 50 MG in D5W 245 ML IV SCH (19:30)
--- NOTE | 2018-10-21 20:04 | Cardiology Progress Note ---
Assessment/Plan Assessment/Plan 1. Respiratory failure. 2. Bilateral pneumoniae. 3. History of cerebrovascular accident. 4. Azotemia and renal insufficiency. 5. Anemia. 6. Relative thrombocytopenia 7. tele artifact due to shaking ? related to cough?? 8. bacteremia iv abx vent support tele observation sinus occasional artifact echo noted repeat bc neg Subjective ROS Limited/Unobtainable: Yes Objective Last 24 Hour Vital Signs Date Time Temp Pulse Resp B/P (MAP) Pulse Ox O2 Delivery O2 Flow Rate FiO2 10/21/18 19:29 58 18 25 10/21/18 19:00 58 18 117/64 (81) 98 10/21/18 18:00 54 18 118/60 (79) 98 10/21/18 17:00 58 18 110/58 (75) 98 10/21/18 16:59 53 18 25 10/21/18 16:00 58 10/21/18 16:00 25 10/21/18 16:00 Endotracheal Tube Mechanical Ventilator 10/21/18 16:00 98.9 68 18 118/55 (76) 98 10/21/18 15:06 60 19 25 10/21/18 15:00 57 18 108/50 (69) 98 10/21/18 14:00 58 18 110/52 (71) 98 10/21/18 13:05 60 18 25 10/21/18 13:00 57 18 112/48 (69) 98 10/21/18 12:00 25 10/21/18 12:00 98.7 58 19 110/50 (70) 99 10/21/18 12:00 57 10/21/18 12:00 Endotracheal Tube Mechanical Ventilator 10/21/18 11:00 67 18 116/45 (68) 98 10/21/18 10:46 68 18 25 10/21/18 10:00 66 18 120/48 (72) 98 10/21/18 09:00 68 18 115/45 (68) 98 10/21/18 08:44 58 18 25 10/21/18 08:25 108/45 10/21/18 08:00 25 10/21/18 08:00 61 10/21/18 08:00 Endotracheal Tube Mechanical Ventilator 10/21/18 08:00 98.8 80 18 118/58 (78) 99 10/21/18 07:00 62 18 111/44 (66) 98 10/21/18 06:55 56 18 25 10/21/18 06:00 62 18 119/50 (73) 98 10/21/18 05:21 55 18 25 10/21/18 05:00 57 19 98/41 (60) 98 10/21/18 04:00 Endotracheal Tube Mechanical Ventilator 10/21/18 04:00 69 10/21/18 04:00 25 10/21/18 04:00 98.7 69 19 112/52 (72) 98 10/21/18 03:08 66 21 25 10/21/18 03:00 68 23 112/49 (70) 97 10/21/18 02:00 61 18 104/57 (73) 98 10/21/18 01:00 71 18 120/44 (69) 100 10/21/18 00:50 62 18 25 10/21/18 00:00 98.3 63 18 100/43 (62) 100 10/21/18 00:00 Endotracheal Tube Mechanical Ventilator 10/21/18 00:00 25 10/20/18 23:05 65 18 25 10/20/18 23:00 62 18 104/41 (62) 99 10/20/18 22:00 62 18 108/43 (64) 98 10/20/18 21:03 66 18 25 10/20/18 21:00 60 18 98/42 (60) 98 General Appearance: on vent, patient on isolation Intake and Output 10/20/18 10/21/18 19:00 07:00 Intake Total 1135 ml 1190 ml Output Total 1120 ml 1475 ml Balance 15 ml -285 ml IV Total 715 ml 770 ml Tube Feeding 420 ml 420 ml Output Urine Total 1120 ml 1475 ml # Bowel Movements 1 2 Laboratory Tests Test 10/21/18 05:49 White Blood Count 5.2 K/UL (4.8-10.8) Red Blood Count 3.21 M/UL (4.20-5.40) L Hemoglobin 9.7 G/DL (12.0-16.0) L Hematocrit 29.0 % (37.0-47.0) L Mean Corpuscular Volume 90 FL (80-99) Mean Corpuscular Hemoglobin 30.2 PG (27.0-31.0) Mean Corpuscular Hemoglobin Concent 33.4 G/DL (32.0-36.0) Red Cell Distribution Width 13.2 % (11.6-14.8) Platelet Count 373 K/UL (150-450) Mean Platelet Volume 5.7 FL (6.5-10.1) L Neutrophils (%) (Auto) 59.6 % (45.0-75.0) Lymphocytes (%) (Auto) 30.5 % (20.0-45.0) Monocytes (%) (Auto) 6.7 % (1.0-10.0) Eosinophils (%) (Auto) 2.4 % (0.0-3.0) Basophils (%) (Auto) 0.8 % (0.0-2.0) Sodium Level 140 MMOL/L (136-145) Potassium Level 5.0 MMOL/L (3.5-5.1) Chloride Level 107 MMOL/L (98-107) Carbon Dioxide Level 28 MMOL/L (21-32) Anion Gap 6 mmol/L (5-15) Blood Urea Nitrogen 19 mg/dL (7-18) H Creatinine 0.8 MG/DL (0.55-1.30) Estimat Glomerular Filtration Rate mL/min (>60) Glucose Level 113 MG/DL (74-106) H Calcium Level 8.5 MG/DL (8.5-10.1) Total Bilirubin 0.3 MG/DL (0.2-1.0) Aspartate Amino Transf (AST/SGOT) 33 U/L (15-37) Alanine Aminotransferase (ALT/SGPT) 29 U/L (12-78) Alkaline Phosphatase 86 U/L (46-116) Pro-B-Type Natriuretic Peptide 1336 pg/mL (0-125) H Total Protein 6.0 G/DL (6.4-8.2) L Albumin 1.7 G/DL (3.4-5.0) L Globulin 4.3 g/dL Albumin/Globulin Ratio 0.4 (1.0-2.7) L Microbiology Date/Time Source Procedure Growth Status 10/19/18 18:45 Blood Blood Culture - Preliminary NO GROWTH AFTER 24 HOURS Resulted 10/19/18 18:40 Blood Blood Culture - Preliminary NO GROWTH AFTER 24 HOURS Resulted Huber Humphrey MD Oct 21, 2018 20:04
[2018-10-21] MEDS: Dyna-Hex 2% Top Sol 2oz TOPIC SCH (20:44)
--- NOTE | 2018-10-21 21:00 | NUR ---
NURSE NOTES: CHG bath given tolerated well. Repositioned for comfort. Suctioned. No s/s of acute distress.
--- NOTE | 2018-10-21 23:00 | NUR ---
NURSE NOTES: Patient continues to need frequent suctioning due to oral and endotracheal mucus amount. Constantly drooling. will continue plan of care.
--- NOTE | 2018-10-21 23:18 | General Progress Note ---
Assessment/Plan Problem List: (1) Toxic encephalopathy ICD Codes: G92 - Toxic encephalopathy SNOMED: 72013914 Status: stable Assessment/Plan Haldol 5mg Im q6hr prn/agitation dw RN Subjective Allergies: Coded Allergies: No Known Allergies (Verified , 08/14/06) Subjective the pt is more manageable sleep no agitation Objective Last 24 Hour Vital Signs Date Time Temp Pulse Resp B/P (MAP) Pulse Ox O2 Delivery O2 Flow Rate FiO2 10/21/18 23:00 64 19 107/50 (69) 100 10/21/18 22:52 63 19 25 10/21/18 22:00 63 18 109/45 (66) 100 10/21/18 21:19 52 17 25 10/21/18 21:00 51 18 106/58 (74) 100 10/21/18 20:00 Endotracheal Tube Mechanical Ventilator 10/21/18 20:00 98.1 59 18 103/57 (72) 100 10/21/18 20:00 25 10/21/18 19:30 58 117/64 10/21/18 19:29 58 18 25 10/21/18 19:00 58 18 117/64 (81) 98 10/21/18 18:00 54 18 118/60 (79) 98 10/21/18 17:00 58 18 110/58 (75) 98 10/21/18 16:59 53 18 25 10/21/18 16:00 58 10/21/18 16:00 25 10/21/18 16:00 Endotracheal Tube Mechanical Ventilator 10/21/18 16:00 98.9 68 18 118/55 (76) 98 10/21/18 15:06 60 19 25 10/21/18 15:00 57 18 108/50 (69) 98 10/21/18 14:00 58 18 110/52 (71) 98 10/21/18 13:05 60 18 25 10/21/18 13:00 57 18 112/48 (69) 98 10/21/18 12:00 25 10/21/18 12:00 98.7 58 19 110/50 (70) 99 10/21/18 12:00 57 10/21/18 12:00 Endotracheal Tube Mechanical Ventilator 10/21/18 11:00 67 18 116/45 (68) 98 10/21/18 10:46 68 18 25 10/21/18 10:00 66 18 120/48 (72) 98 10/21/18 09:00 68 18 115/45 (68) 98 10/21/18 08:44 58 18 25 10/21/18 08:25 108/45 10/21/18 08:00 25 10/21/18 08:00 61 10/21/18 08:00 Endotracheal Tube Mechanical Ventilator 10/21/18 08:00 98.8 80 18 118/58 (78) 99 10/21/18 07:00 62 18 111/44 (66) 98 10/21/18 06:55 56 18 25 10/21/18 06:00 62 18 119/50 (73) 98 10/21/18 05:21 55 18 25 10/21/18 05:00 57 19 98/41 (60) 98 10/21/18 04:00 Endotracheal Tube Mechanical Ventilator 10/21/18 04:00 69 10/21/18 04:00 25 10/21/18 04:00 98.7 69 19 112/52 (72) 98 10/21/18 03:08 66 21 25 10/21/18 03:00 68 23 112/49 (70) 97 10/21/18 02:00 61 18 104/57 (73) 98 10/21/18 01:00 71 18 120/44 (69) 100 10/21/18 00:50 62 18 25 10/21/18 00:00 98.3 63 18 100/43 (62) 100 10/21/18 00:00 Endotracheal Tube Mechanical Ventilator 10/21/18 00:00 25 Intake and Output 10/20/18 10/21/18 19:00 07:00 Intake Total 1135 ml 1190 ml Output Total 1120 ml 1475 ml Balance 15 ml -285 ml IV Total 715 ml 770 ml Tube Feeding 420 ml 420 ml Output Urine Total 1120 ml 1475 ml # Bowel Movements 1 2 Laboratory Tests 10/21/18 05:49: White Blood Count 5.2, Red Blood Count 3.21L, Hemoglobin 9.7L, Hematocrit 29.0L , Mean Corpuscular Volume 90, Mean Corpuscular Hemoglobin 30.2, Mean Corpuscular Hemoglobin Concent 33.4, Red Cell Distribution Width 13.2, Platelet Count 373, Mean Platelet Volume 5.7L, Neutrophils (%) (Auto) 59.6, Lymphocytes ( %) (Auto) 30.5, Monocytes (%) (Auto) 6.7, Eosinophils (%) (Auto) 2.4, Basophils (%) (Auto) 0.8, Sodium Level 140, Potassium Level 5.0, Chloride Level 107, Carbon Dioxide Level 28, Anion Gap 6, Blood Urea Nitrogen 19H, Creatinine 0.8, Estimat Glomerular Filtration Rate , Glucose Level 113H, Calcium Level 8.5, Total Bilirubin 0.3, Aspartate Amino Transf (AST/SGOT) 33, Alanine Aminotransferase (ALT/SGPT) 29, Alkaline Phosphatase 86, Pro-B-Type Natriuretic Peptide 1336H, Total Protein 6.0L, Albumin 1.7L, Globulin 4.3, Albumin/Globulin Ratio 0.4L Height (Feet): 5 Height (Inches): 4.00 Weight (Pounds): 140 General Appearance: lethargic, confused Trever Easley MD Oct 21, 2018 23:18
[2018-10-22] VITALS (25 sets, daily range): BP systolic 86–138; BP diastolic 41–61
--- NOTE | 2018-10-22 01:00 | NUR ---
NURSE NOTES: Turned and repositioned. Oral care provided. Swollen upper and lower extremities, elevated with pillows.
[2018-10-22] MEDS: Meropenem 1 GM in NS 55 ML IVPB SCH ×2 (03:00→15:00)
--- NOTE | 2018-10-22 03:00 | NUR ---
NURSE NOTES: Repositioned for comfort, no s/s of acute distress noted. Roberts draining. Will continue plan of care.
[2018-10-22] MEDS: Penicillin G Potassium 4 MU in NS 55 ML IVPB SCH ×7 (04:00→20:37)
--- NOTE | 2018-10-22 05:00 | NUR ---
NURSE NOTES: AM care provided. Comfort measure provided. Suctioned, oral care provided. HOB elevated. Temp 97.8Axillary. No s/s of acute distress noted. will continue plan of care.
[2018-10-22 06:14] LABS: HEMOGLOBIN 9.6 G/DL (12.0-16.0); LYMPHOCYTES % (AUTO) 34.8 % (20.0-45.0); MEAN CORPUSCULAR VOLUME 91 FL (80-99); MONOCYTES % (AUTO) 7.9 % (1.0-10.0); NEUTROPHILS % (AUTO) 54.3 % (45.0-75.0); PLATELET COUNT 428 K/UL (150-450); RED BLOOD COUNT 3.18 M/UL (4.20-5.40); RED CELL DISTRIBUTION WIDTH 13.5 % (11.6-14.8); WHITE BLOOD COUNT 5.4 K/UL (4.8-10.8)
[2018-10-22] MEDS: NovoLOG Insulin Flexpen SUBQ SCH ×4 (06:29→18:16)
--- NOTE | 2018-10-22 07:00 | NUR ---
Received Patient on Vent settings of ACVC RR 18, VT 450, FIO2 25%, PEEP +5. Patient orally intubated with 7.0 ETT at 23cm at the lip secured by anchorfast. Diminished rhonchi are heard bilaterally. SX thin white secretions. Vent plugged into red outlet. Alarms are on and audible. Will continue to monitor throughout the day.
[2018-10-22 07:02] LABS: ALANINE AMINOTRANSFERASE 31 U/L (12-78); ALBUMIN 1.8 G/DL (3.4-5.0); ALBUMIN/GLOBULIN RATIO 0.4 (1.0-2.7); ALKALINE PHOSPHATASE 88 U/L (46-116); ANION GAP 5 mmol/L (5-15); ASPARTATE AMINO TRANSFERASE 29 U/L (15-37); BILIRUBIN,TOTAL 0.3 MG/DL (0.2-1.0); BLOOD UREA NITROGEN 22 mg/dL (7-18); CALCIUM 8.8 MG/DL (8.5-10.1); CARBON DIOXIDE 26 MMOL/L (21-32); CHLORIDE 108 MMOL/L (98-107); CREATININE 0.9 MG/DL (0.55-1.30); POTASSIUM 5.2 MMOL/L (3.5-5.1); SODIUM 139 MMOL/L (136-145)
--- NOTE | 2018-10-22 07:07 | NUR ---
HAND-OFF: Report given to BOUBACAR Yung.
--- NOTE | 2018-10-22 08:00 | NUR ---
NURSE NOTES: Received Pt in no acute distress. Opens eyes spontaneously but non verbal due to ETT 7.0, 21lipline, AC 18, TV 450, FiO2 25%, Peep 5. Appears to be tolerating current vent parameters, saturating 100%., secretions pinkish, thick, copious via ETT and orally, lung sounds diminished bilaterally. Contracted on all 4 extremities. SB on the monitoring coordinator. ; Bp stable; afebrile. GTF with Glucerna 1.5 running at 35ml/h with 10 cc residuals. Round, nontender abdomen. Roberts 16Fr patent, draining clear yellow urine; PICC on JOLEEN intact, IVF of D5W infusing 50ml/h. HOB kept elevated. Bed in low and locked position. Call light within reach. Bed alarm on. Will continue to monitor patient.
[2018-10-22] MEDS: Pantoprazole Inj IVP SCH (08:15)
--- NOTE | 2018-10-22 09:29 | NUR ---
RADIOLOGY DEPT CHEST X-RAY DONE.-P.DYE
--- NOTE | 2018-10-22 09:54 | Pulmonolgy Critical Care Note ---
Critical Care - Asmt/Plan Problems: (1) Acute respiratory failure (2) Healthcare-associated pneumonia (3) Sepsis (4) Diabetes mellitus type II, uncontrolled (5) Feeding by G-tube (6) Hemiparesis affecting left side as late effect of cerebrovascular accident Respiratory: monitor respiratory rate, adjust FIO2, CXR Cardiac: continue to monitor HR/BP Renal: F/U I&O, keep IV fluid Infectious Disease: check cultures Gastrointestinal: continue feedings/current rate Endocrine: monitor blood sugar, check HgA1C Hematologic: transfuse if hgb<8.5 Neurologic: keep patient comfortable Affect: PRN ativan Prophylaxis: Protonix Notes Reviewed: house supervisor, renal Discussed with: nurses, consultants, spring encaserproposal manager writer - Objective Last 24 Hour Vital Signs Date Time Temp Pulse Resp B/P (MAP) Pulse Ox O2 Delivery O2 Flow Rate FiO2 10/22/18 08:40 55 18 25 10/22/18 08:16 103/55 10/22/18 08:00 97.8 62 16 105/55 (72) 99 10/22/18 08:00 25 10/22/18 08:00 Endotracheal Tube Mechanical Ventilator 10/22/18 07:19 66 18 25 10/22/18 07:00 61 17 94/45 (61) 99 10/22/18 06:00 70 23 126/46 (72) 96 10/22/18 05:17 56 18 25 10/22/18 05:00 60 18 93/43 (60) 97 10/22/18 04:00 55 10/22/18 04:00 Endotracheal Tube Mechanical Ventilator 10/22/18 04:00 25 10/22/18 04:00 97.7 59 16 96/44 (61) 99 10/22/18 03:05 47 17 25 10/22/18 03:00 48 18 114/44 (67) 100 10/22/18 02:28 52 18 102/48 (66) 100 10/22/18 02:00 52 15 86/41 (56) 99 10/22/18 01:13 65 23 25 10/22/18 01:00 73 21 127/61 (83) 99 10/22/18 00:00 Endotracheal Tube Mechanical Ventilator 10/22/18 00:00 97.9 59 18 115/44 (67) 100 10/22/18 00:00 25 10/22/18 00:00 56 1/10/19 23:00 64 19 107/50 (69) 100 10/21/18 22:52 63 19 25 10/21/18 22:00 63 18 109/45 (66) 100 10/21/18 21:19 52 17 25 10/21/18 21:00 51 18 106/58 (74) 100 10/21/18 20:00 Endotracheal Tube Mechanical Ventilator 10/21/18 20:00 56 10/21/18 20:00 98.1 59 18 103/57 (72) 100 10/21/18 20:00 25 10/21/18 19:30 58 117/64 10/21/18 19:29 58 18 25 10/21/18 19:00 58 18 117/64 (81) 98 10/21/18 18:00 54 18 118/60 (79) 98 10/21/18 17:00 58 18 110/58 (75) 98 10/21/18 16:59 53 18 25 10/21/18 16:00 58 10/21/18 16:00 25 10/21/18 16:00 Endotracheal Tube Mechanical Ventilator 10/21/18 16:00 98.9 68 18 118/55 (76) 98 10/21/18 15:06 60 19 25 10/21/18 15:00 57 18 108/50 (69) 98 10/21/18 14:00 58 18 110/52 (71) 98 10/21/18 13:05 60 18 25 10/21/18 13:00 57 18 112/48 (69) 98 10/21/18 12:00 25 10/21/18 12:00 98.7 58 19 110/50 (70) 99 10/21/18 12:00 57 10/21/18 12:00 Endotracheal Tube Mechanical Ventilator 10/21/18 11:00 67 18 116/45 (68) 98 10/21/18 10:46 68 18 25 10/21/18 10:00 66 18 120/48 (72) 98 Status: awake Condition: grave HEENT: atraumatic Lungs: rales, rhonchi Heart: HR/BP stable Abdomen: soft, feeding tube Extremities: no C/C/E Micro: Microbiology Date/Time Source Procedure Growth Status 10/19/18 18:45 Blood Blood Culture - Preliminary NO GROWTH AFTER 48 HOURS Resulted 10/19/18 18:40 Blood Blood Culture - Preliminary NO GROWTH AFTER 48 HOURS Resulted Accucheck: 125 Critical Care - Subjective ROS Limited/Unobtainable: Yes Condition: critical EKG Rhythm: Sinus Rhythm FI02: 25 Vent Support Breath Rate: 18 Vent Support Mode: AC Vent Tidal Volume: 450 Sputum Amount: Scant PEEP: 5.0 PIP: 29 Tube Feeding Amount: 35 I&O: Intake and Output 10/21/18 10/22/18 19:00 07:00 Intake Total 1145 ml 1390 ml Output Total 990 ml 1120 ml Balance 155 ml 270 ml Intake Free Water 150 ml IV Total 725 ml 820 ml Tube Feeding 420 ml 420 ml Output Urine Total 990 ml 1120 ml # Bowel Movements 3 2 CXR: no change ET-Tube: 7.0 ET Position: 23 Labs: Laboratory Tests Test 10/22/18 05:30 White Blood Count 5.4 K/UL (4.8-10.8) Red Blood Count 3.18 M/UL (4.20-5.40) L Hemoglobin 9.6 G/DL (12.0-16.0) L Hematocrit 29.0 % (37.0-47.0) L Mean Corpuscular Volume 91 FL (80-99) Mean Corpuscular Hemoglobin 30.1 PG (27.0-31.0) Mean Corpuscular Hemoglobin Concent 32.9 G/DL (32.0-36.0) Red Cell Distribution Width 13.5 % (11.6-14.8) Platelet Count 428 K/UL (150-450) Mean Platelet Volume 5.6 FL (6.5-10.1) L Neutrophils (%) (Auto) 54.3 % (45.0-75.0) Lymphocytes (%) (Auto) 34.8 % (20.0-45.0) Monocytes (%) (Auto) 7.9 % (1.0-10.0) Eosinophils (%) (Auto) 2.0 % (0.0-3.0) Basophils (%) (Auto) 1.0 % (0.0-2.0) Sodium Level 139 MMOL/L (136-145) Potassium Level 5.2 MMOL/L (3.5-5.1) H Chloride Level 108 MMOL/L (98-107) H Carbon Dioxide Level 26 MMOL/L (21-32) Anion Gap 5 mmol/L (5-15) Blood Urea Nitrogen 22 mg/dL (7-18) H Creatinine 0.9 MG/DL (0.55-1.30) Estimat Glomerular Filtration Rate mL/min (>60) Glucose Level 112 MG/DL (74-106) H Calcium Level 8.8 MG/DL (8.5-10.1) Total Bilirubin 0.3 MG/DL (0.2-1.0) Aspartate Amino Transf (AST/SGOT) 29 U/L (15-37) Alanine Aminotransferase (ALT/SGPT) 31 U/L (12-78) Alkaline Phosphatase 88 U/L (46-116) Pro-B-Type Natriuretic Peptide 1113 pg/mL (0-125) H Total Protein 6.0 G/DL (6.4-8.2) L Albumin 1.8 G/DL (3.4-5.0) L Globulin 4.2 g/dL Albumin/Globulin Ratio 0.4 (1.0-2.7) L Barbara Sky MD Oct 22, 2018 09:54
--- NOTE | 2018-10-22 10:00 | NUR ---
NURSE NOTES: Patient placed on CPAP PS [address] nelson's order. Tacypnea 30-40s. Saturating 98% HR 77. Will continue to monitor patient.
--- NOTE | 2018-10-22 10:03 | NUR ---
Weaning started per Dr. Carrizales. Patient placed on PS 10 PEEP +5. Will continue to monitor.
--- NOTE | 2018-10-22 11:16 | NUR ---
Lowered PS to 8. Increased fio2 to 40%.
--- NOTE | 2018-10-22 12:10 | Diagnostic Imaging Report ---
Indication: Dyspnea Comparison: 10/21/2018 A single view chest radiograph was obtained. Findings: Endotracheal tube is satisfactory in position as is the PICC line, both stable. Left basilar retrocardiac consolidation with air bronchograms again noted. Right basilar infiltrate suspected also. Small pleural effusions may be present bilaterally. Interstitial edema may be present. IMPRESSION: No significant change from the prior day
--- NOTE | 2018-10-22 12:30 | NUR ---
NURSE NOTES: Patient extubated. HR 70 RR 30 100% 02 saturation. Will continue to monitor patient.
--- NOTE | 2018-10-22 14:00 | NUR ---
NURSE NOTES: Patient turned and repositioned. No new orders at this time. RR 20s, Saturating 100%, HR 71. Family at bedside. Will continue to monitor patient.
--- NOTE | 2018-10-22 16:00 | NUR ---
NURSE NOTES: VSS. No distress noted. Turned and repositioned. Will continue plan of care.
[2018-10-22] MEDS ORDERED: NS 275ml ONE (16:08)
[2018-10-22] MEDS ORDERED: D5NS 1000ml IV ONE (16:55)
[2018-10-22] MEDS ORDERED: Tubing IV Secondary IV ONE (16:55)
--- NOTE | 2018-10-22 17:05 | Internal Med Progress Note ---
Subjective Physician Name Tereso Toro Attending Physician Tereso Toro MD Current Medications Medications (Trade) Dose Ordered Sig/Christopher Route PRN Reason Start Time Stop Time Status Last Admin Dose Admin Acetaminophen (Tylenol) 650 mg Q4H PRN GT Mild Pain/Temp > 101 10/13/18 04:30 11/11/18 04:29 10/14/18 05:38 Chlorhexidine Gluconate (Tatiana-Hex 2%) 1 applic DAILY@2000 TOPIC 10/13/18 20:00 11/12/18 19:59 10/21/18 20:44 Dextrose 1,000 ml @ 50 mls/hr Q20H IV 10/16/18 16:30 11/15/18 16:29 10/21/18 19:00 Dextrose (Dextrose 50%) 25 ml Q30M PRN IV Hypoglycemia 10/13/18 03:30 11/11/18 04:29 Dextrose (Dextrose 50%) 50 ml Q30M PRN IV Hypoglycemia 10/13/18 03:30 11/11/18 04:29 Haloperidol Lactate (Haldol) 5 mg Q6H PRN IM Agitation 10/14/18 13:30 11/13/18 13:29 10/14/18 15:37 Insulin Aspart (NovoLOG) EVERY 6 HOURS SUBQ 10/13/18 06:00 11/11/18 06:29 10/22/18 12:00 Meropenem 1 gm/ Sodium Chloride 55 ml @ 110 mls/hr Q12H IVPB 10/14/18 15:00 10/28/18 14:59 10/22/18 15:00 Norepinephrine Bitartrate 4 mg/ Dextrose 250 ml @ 0 mls/hr Q24H IV 10/13/18 09:00 11/12/18 08:59 10/13/18 14:21 Pantoprazole (Protonix) 40 mg DAILY IVP 10/14/18 09:00 11/13/18 08:59 10/22/18 08:15 Penicillin G Potassium 4 mu/ Sodium Chloride 55 ml @ 110 mls/hr Q4H IVPB 10/19/18 20:00 10/26/18 19:59 10/22/18 16:00 Phenylephrine HCl 50 mg/Dextrose 250 ml @ 0 mls/hr Q24H IV 10/13/18 19:30 11/12/18 19:29 Sitagliptin Phosphate (Januvia) 100 mg ACBREAKFAST GT 10/13/18 06:30 11/11/18 06:29 10/22/18 06:28 Allergies: Coded Allergies: No Known Allergies (Verified , 08/14/06) Subjective in ICU, Extubated today, open eyes , not verbal on VM Objective Last Vital Signs Date Time Temp Pulse Resp B/P (MAP) Pulse Ox O2 Delivery O2 Flow Rate FiO2 10/22/18 16:00 Non-Rebreather Non-Rebreather Non-Rebreather 10/22/18 16:00 64 10/22/18 16:00 98.6 30 120/55 (76) 100 10/22/18 12:39 15.0 100 Laboratory Tests Test 10/22/18 05:30 10/22/18 11:00 White Blood Count 5.4 K/UL (4.8-10.8) Red Blood Count 3.18 M/UL (4.20-5.40) L Hemoglobin 9.6 G/DL (12.0-16.0) L Hematocrit 29.0 % (37.0-47.0) L Mean Corpuscular Volume 91 FL (80-99) Mean Corpuscular Hemoglobin 30.1 PG (27.0-31.0) Mean Corpuscular Hemoglobin Concent 32.9 G/DL (32.0-36.0) Red Cell Distribution Width 13.5 % (11.6-14.8) Platelet Count 428 K/UL (150-450) Mean Platelet Volume 5.6 FL (6.5-10.1) L Neutrophils (%) (Auto) 54.3 % (45.0-75.0) Lymphocytes (%) (Auto) 34.8 % (20.0-45.0) Monocytes (%) (Auto) 7.9 % (1.0-10.0) Eosinophils (%) (Auto) 2.0 % (0.0-3.0) Basophils (%) (Auto) 1.0 % (0.0-2.0) Sodium Level 139 MMOL/L (136-145) Potassium Level 5.2 MMOL/L (3.5-5.1) H Chloride Level 108 MMOL/L (98-107) H Carbon Dioxide Level 26 MMOL/L (21-32) Anion Gap 5 mmol/L (5-15) Blood Urea Nitrogen 22 mg/dL (7-18) H Creatinine 0.9 MG/DL (0.55-1.30) Estimat Glomerular Filtration Rate mL/min (>60) Glucose Level 112 MG/DL (74-106) H Calcium Level 8.8 MG/DL (8.5-10.1) Total Bilirubin 0.3 MG/DL (0.2-1.0) Aspartate Amino Transf (AST/SGOT) 29 U/L (15-37) Alanine Aminotransferase (ALT/SGPT) 31 U/L (12-78) Alkaline Phosphatase 88 U/L (46-116) Pro-B-Type Natriuretic Peptide 1113 pg/mL (0-125) H Total Protein 6.0 G/DL (6.4-8.2) L Albumin 1.8 G/DL (3.4-5.0) L Globulin 4.2 g/dL Albumin/Globulin Ratio 0.4 (1.0-2.7) L Arterial Blood pH 7.445 (7.350-7.450) Arterial Blood Partial Pressure CO2 36.3 mmHg (35.0-45.0) Arterial Blood Partial Pressure O2 65.8 mmHg (75.0-100.0) L Arterial Blood HCO3 24.4 mmol/L (22.0-26.0) Arterial Blood Oxygen Saturation 93.0 % (95-100) L Arterial Blood Base Excess 0.5 (-2-2) Khadar Test Positive Microbiology Date/Time Source Procedure Growth Status 10/19/18 18:45 Blood Blood Culture - Preliminary NO GROWTH AFTER 48 HOURS Resulted 10/19/18 18:40 Blood Blood Culture - Preliminary NO GROWTH AFTER 48 HOURS Resulted Intake and Output 10/21/18 10/22/18 18:59 06:59 Intake Total 1195 ml 1290 ml Output Total 1110 ml 1100 ml Balance 85 ml 190 ml Intake Free Water 100 ml IV Total 775 ml 770 ml Tube Feeding 420 ml 420 ml Output Urine Total 1110 ml 1100 ml # Bowel Movements 3 2 Objective General: No acute distress, awake and responsive with open eyes. HEENT: NCAT, sclera anicteric, PERRL, EOMI. Neck: Supple, no significant jugular venous distention, Lungs: fair inspiratory effort, decrease air at bases, no Wheeze or Rales. Heart: Regular rate and rhythm, normal S1/S2, no murmurs, Abdomen: soft, nontender, nondistended. Normoactive bowel sounds. PEG site intact. : Roberts Cath Extremities: No Cyanosis , clubbing or edema. RUE Piccline, Neuro: Awake, open eyes, contracted extremities. Skin: warm, no rashes. Assessment/Plan Assessment/Plan (1) COPD (chronic obstructive pulmonary disease) (2) Cerebral vascular disease (3) Acute respiratory failure --> Extubated (10/22/2018) (4) Sepsis (5) Diabetes mellitus type II, uncontrolled (6) HTN (hypertension) (7) Hemiparesis affecting left side as late effect of cerebrovascular accident (8) Healthcare-associated pneumonia Assessment & Plan: Continue PCN G and Meropenem per ID (9) Hypotension (10) Sepsis (11) Diarrhea Assessment & Plan: stool for C. Diff and cult and sens (12) Elevated troponin Assessment & Plan: See cardiology note. (13) CHF (congestive heart failure) Plan: Monitor labs and cultures consider transfer from ICU once more stable. wean off Levophed Tereso Borges MD Oct 22, 2018 17:05
--- NOTE | 2018-10-22 18:00 | NUR ---
NURSE NOTES: Patient turned and repositioned. No new orders at this time. Will continue plan of care.
[2018-10-22] MEDS: Phenylephrine 50 MG in D5W 245 ML IV SCH (18:23)
--- NOTE | 2018-10-22 19:15 | NUR ---
HAND-OFF: Report given to Marlen HAMLIN using SBAR. VSS. NO distress noted.
--- NOTE | 2018-10-22 19:20 | NUR ---
NURSE NOTES: Received report from BOUBACAR Yung. Patient awake,alert on Venturi mask 55% saturating 100%.No s/s of cardiac and acute distress noted. HOB elevated. Contracted on all 4 extremities. SR on the seaman, HR 74. GTF with Glucerna 1.5 running at 35ml/h no residuals. Round, nontender abdomen. Roberts 16Fr patent, draining clear yellow urine; PICC on JOLEEN intact, IVF of D5W infusing 50ml/h. HOB kept elevated. Bed in low and locked position. Contact isolation maintained and observed. Call light within reach. Bed alarm on. Will continue to monitor patient.
--- NOTE | 2018-10-22 19:37 | Infectious Diseases Prog Note ---
Assessment/Plan Problems: (1) Aspiration pneumonia Assessment & Plan: due to pseudomonas aeruginosa and proteus mirabilis , continue meropenem for two weeks , aspiration precaution with aggressive suctioning , keep HOB > 30 degree .monitor CXR. EOT 10/28/18 (2) Sepsis Assessment & Plan: with strep viridans and lactobacillus spp suspect GI source most likely malignancy , continue penicillin G for two weeks at least . recommend colonoscopy in the future to rule colon CA . repeated blood culture is negative so far which confirm clearance (3) Acute respiratory failure Assessment & Plan: due to the above , improving, extubated on ventimask , monitor CXR and ABG. pulmonary is following (4) Diabetes mellitus type II, uncontrolled Assessment & Plan: recommend tight glycemic control to keep blood glucose between 100-140 (5) JEFFY (acute kidney injury) Assessment & Plan: improved, due to hypotension and sepsis, continue hydration , monitor renal function, and UOP Subjective Constitutional: Reports: no symptoms HEENT: Reports: no symptoms Respiratory: Reports: dry cough Cardiovascular: Reports: no symptoms Gastrointestinal/Abdominal: Reports: no symptoms Genitourinary: Reports: no symptoms Neurologic: Reports: weakness, confusion Psychiatric: Reports: no symptoms Skin: Reports: ulcer Endocrine: Reports: no symptoms Hematologic: Reports: no symptoms Musculoskeletal: Reports: no symptoms Allergies: Coded Allergies: No Known Allergies (Verified , 08/14/06) Subjective she was extubated, started on ventimask , still in ICU , more awake, no fever. no diarrhea , no vomiting Objective Vital Signs Last 24 Hour Vital Signs Date Time Temp Pulse Resp B/P (MAP) Pulse Ox O2 Delivery O2 Flow Rate FiO2 10/22/18 19:00 67 20 110/60 (77) 100 10/22/18 18:23 64 110/59 10/22/18 18:00 60 20 98/52 (67) 100 10/22/18 17:00 64 22 95/48 (64) 100 10/22/18 16:00 Non-Rebreather Non-Rebreather Non-Rebreather 10/22/18 16:00 64 10/22/18 16:00 98.6 61 30 120/55 (76) 100 10/22/18 15:00 67 30 122/51 (74) 100 10/22/18 14:00 66 30 128/55 (79) 100 10/22/18 13:00 62 35 122/50 (74) 100 10/22/18 12:39 Non-Rebreather 15.0 100 10/22/18 12:39 74 25 Non-Rebreather 15.0 100 10/22/18 12:37 Non-Rebreather 15.0 100 10/22/18 12:00 61 10/22/18 12:00 25 10/22/18 12:00 98.6 60 30 115/60 (78) 99 10/22/18 12:00 Endotracheal Tube Mechanical Ventilator 10/22/18 11:16 40 10/22/18 11:00 62 35 127/45 (72) 100 10/22/18 10:35 80 39 25 10/22/18 10:00 71 17 110/56 (74) 99 10/22/18 09:00 61 17 98/50 (66) 99 10/22/18 08:40 55 18 25 10/22/18 08:16 103/55 10/22/18 08:00 97.8 62 16 105/55 (72) 99 10/22/18 08:00 25 10/22/18 08:00 Endotracheal Tube Mechanical Ventilator 10/22/18 08:00 64 10/22/18 07:19 66 18 25 10/22/18 07:00 61 17 94/45 (61) 99 10/22/18 06:00 70 23 126/46 (72) 96 10/22/18 05:17 56 18 25 10/22/18 05:00 60 18 93/43 (60) 97 10/22/18 04:00 55 10/22/18 04:00 Endotracheal Tube Mechanical Ventilator 10/22/18 04:00 25 10/22/18 04:00 97.7 59 16 96/44 (61) 99 10/22/18 03:05 47 17 25 10/22/18 03:00 48 18 114/44 (67) 100 10/22/18 02:28 52 18 102/48 (66) 100 10/22/18 02:00 52 15 86/41 (56) 99 10/22/18 01:13 65 23 25 10/22/18 01:00 73 21 127/61 (83) 99 10/22/18 00:00 Endotracheal Tube Mechanical Ventilator 10/22/18 00:00 97.9 59 18 115/44 (67) 100 10/22/18 00:00 25 10/22/18 00:00 56 10/21/18 23:00 64 19 107/50 (69) 100 10/21/18 22:52 63 19 25 10/21/18 22:00 63 18 109/45 (66) 100 10/21/18 21:19 52 17 25 10/21/18 21:00 51 18 106/58 (74) 100 10/21/18 20:00 Endotracheal Tube Mechanical Ventilator 10/21/18 20:00 56 10/21/18 20:00 98.1 59 18 103/57 (72) 100 10/21/18 20:00 25 Height (Feet): 5 Height (Inches): 4.00 Weight (Pounds): 139 General Appearance: WD/WN, no acute distress HEENT: normocephalic, atraumatic, anicteric, mucous membranes moist, PERRL, supple, no JVD Respiratory/Chest: chest wall non-tender, no respiratory distress, no accessory muscle use, decreased breath sounds, crackles/rales Cardiovascular: normal peripheral pulses, normal rate, regular rhythm, no gallop/murmur, no JVD Abdomen: normal bowel sounds, soft, non tender, no organomegaly, non distended , no mass, no scars Genitourinary: normal external genitalia Extremities: no cyanosis, no clubbing Skin: no rash, no lesions, ulcers Neurologic/Psychiatric: alert, unresponsiveness Lymphatic: no neck adenopathy, no groin adenopathy Musculoskeletal: normal muscle bulk Laboratory Tests Test 10/22/18 05:30 10/22/18 11:00 White Blood Count 5.4 K/UL (4.8-10.8) Red Blood Count 3.18 M/UL (4.20-5.40) L Hemoglobin 9.6 G/DL (12.0-16.0) L Hematocrit 29.0 % (37.0-47.0) L Mean Corpuscular Volume 91 FL (80-99) Mean Corpuscular Hemoglobin 30.1 PG (27.0-31.0) Mean Corpuscular Hemoglobin Concent 32.9 G/DL (32.0-36.0) Red Cell Distribution Width 13.5 % (11.6-14.8) Platelet Count 428 K/UL (150-450) Mean Platelet Volume 5.6 FL (6.5-10.1) L Neutrophils (%) (Auto) 54.3 % (45.0-75.0) Lymphocytes (%) (Auto) 34.8 % (20.0-45.0) Monocytes (%) (Auto) 7.9 % (1.0-10.0) Eosinophils (%) (Auto) 2.0 % (0.0-3.0) Basophils (%) (Auto) 1.0 % (0.0-2.0) Sodium Level 139 MMOL/L (136-145) Potassium Level 5.2 MMOL/L (3.5-5.1) H Chloride Level 108 MMOL/L (98-107) H Carbon Dioxide Level 26 MMOL/L (21-32) Anion Gap 5 mmol/L (5-15) Blood Urea Nitrogen 22 mg/dL (7-18) H Creatinine 0.9 MG/DL (0.55-1.30) Estimat Glomerular Filtration Rate mL/min (>60) Glucose Level 112 MG/DL (74-106) H Calcium Level 8.8 MG/DL (8.5-10.1) Total Bilirubin 0.3 MG/DL (0.2-1.0) Aspartate Amino Transf (AST/SGOT) 29 U/L (15-37) Alanine Aminotransferase (ALT/SGPT) 31 U/L (12-78) Alkaline Phosphatase 88 U/L (46-116) Pro-B-Type Natriuretic Peptide 1113 pg/mL (0-125) H Total Protein 6.0 G/DL (6.4-8.2) L Albumin 1.8 G/DL (3.4-5.0) L Globulin 4.2 g/dL Albumin/Globulin Ratio 0.4 (1.0-2.7) L Arterial Blood pH 7.445 (7.350-7.450) Arterial Blood Partial Pressure CO2 36.3 mmHg (35.0-45.0) Arterial Blood Partial Pressure O2 65.8 mmHg (75.0-100.0) L Arterial Blood HCO3 24.4 mmol/L (22.0-26.0) Arterial Blood Oxygen Saturation 93.0 % (95-100) L Arterial Blood Base Excess 0.5 (-2-2) Khadar Test Positive Current Medications Medications (Trade) Dose Ordered Sig/Chirstopher Route PRN Reason Start Time Stop Time Status Last Admin Dose Admin Acetaminophen (Tylenol) 650 mg Q4H PRN GT Mild Pain/Temp > 101 10/13/18 04:30 11/11/18 04:29 10/14/18 05:38 Chlorhexidine Gluconate (Tatiana-Hex 2%) 1 applic DAILY@2000 TOPIC 10/13/18 20:00 11/12/18 19:59 10/21/18 20:44 Dextrose 1,000 ml @ 50 mls/hr Q20H IV 10/16/18 16:30 11/15/18 16:29 10/22/18 18:34 Dextrose (Dextrose 50%) 25 ml Q30M PRN IV Hypoglycemia 10/13/18 03:30 11/11/18 04:29 Dextrose (Dextrose 50%) 50 ml Q30M PRN IV Hypoglycemia 10/13/18 03:30 11/11/18 04:29 Haloperidol Lactate (Haldol) 5 mg Q6H PRN IM Agitation 10/14/18 13:30 11/13/18 13:29 10/14/18 15:37 Insulin Aspart (NovoLOG) EVERY 6 HOURS SUBQ 10/13/18 06:00 11/11/18 06:29 10/22/18 18:16 Meropenem 1 gm/ Sodium Chloride 55 ml @ 110 mls/hr Q12H IVPB 10/14/18 15:00 10/28/18 14:59 10/22/18 15:00 Norepinephrine Bitartrate 4 mg/ Dextrose 250 ml @ 0 mls/hr Q24H IV 10/13/18 09:00 11/12/18 08:59 10/13/18 14:21 Pantoprazole (Protonix) 40 mg DAILY IVP 10/14/18 09:00 11/13/18 08:59 10/22/18 08:15 Penicillin G Potassium 4 mu/ Sodium Chloride 55 ml @ 110 mls/hr Q4H IVPB 10/19/18 20:00 10/26/18 19:59 10/22/18 16:00 Phenylephrine HCl 50 mg/Dextrose 250 ml @ 0 mls/hr Q24H IV 10/13/18 19:30 11/12/18 19:29 Sitagliptin Phosphate (Januvia) 100 mg ACBREAKFAST GT 10/13/18 06:30 11/11/18 06:29 10/22/18 06:28 Porfirio Valentine M.D. Oct 22, 2018 19:37
[2018-10-22] MEDS: Dyna-Hex 2% Top Sol 2oz TOPIC SCH (20:37)
--- NOTE | 2018-10-22 22:00 | NUR ---
NURSE NOTES: CHG bath given tolerated well. all linen changed. Patient awake,alert on Venturi mask 55% saturating 100%.No s/s of cardiac and acute distress noted. HOB elevated.Oral care provided. Call light within easy reach.
--- NOTE | 2018-10-22 22:00 | Progress Note ---
DATE: 10/22/2018 SUBJECTIVE: The patient has waxing and waning consciousness, confused, , agitation, poor cognition, . MENTAL STATUS EXAMINATION: The patient continues to be confused. Has waxing and waning consciousness. The patient is extubated. Mood is neutral to agitation. Affect is flat. Thought process, there is a paucity of thought content. Thought content, no suicidal or homicidal ideation. ASSESSMENT: Encephalopathy due to . PLAN: We will continue using Haldol p.r.n. Continue to follow and readjust the medications. Trever Easley M.D. DR: SIRENA JOB#: [id number] CC:
[2018-10-23] VITALS (20 sets, daily range): BP systolic 91–136; BP diastolic 33–60
--- NOTE | 2018-10-23 | NUR ---
NURSE NOTES: Suctioned patient orally noted patient with pinkish, thick, copious secretions. HOB elevated. Will continue plan of care.
[2018-10-23] MEDS: Penicillin G Potassium 4 MU in NS 55 ML IVPB SCH ×7 (00:06→23:10)
[2018-10-23] MEDS: NovoLOG Insulin Flexpen SUBQ SCH ×5 (00:08→23:09)
--- NOTE | 2018-10-23 02:00 | NUR ---
NURSE NOTES: Repositioned patient in bed. Suctioned as needed. Resp 30, no s/s of hypo/hyperglycemia. Roberts draining.
[2018-10-23] MEDS: Meropenem 1 GM in NS 55 ML IVPB SCH ×2 (03:00→15:11)
--- NOTE | 2018-10-23 04:00 | NUR ---
NURSE NOTES: Repositioned patient in bed. HOB elevated. Venti mask at 55% satting 100%. Suctioned as needed. Gt intact no residual running Glucerna 1.5 at 35cc/hr. JOLEEN PICC line intact running D5W at 50cc/hr. No s/s of acute and cardiac distress noted. Frequent visual checks continued. Will continue plan of care.
--- NOTE | 2018-10-23 06:00 | NUR ---
NURSE NOTES: Patient awake, nonverbal. HOB elevated. On Venturi mask at 55% satting 100%. No s/s of acute distress noted. No moaning no facial grimaces.Upper and lower extremities elevated with pillows. generalized body swollen. Roberts draining. Will continue plan of care.
[2018-10-23 06:23] LABS: HEMATOCRIT 27.5 % (37.0-47.0); HEMOGLOBIN 8.9 G/DL (12.0-16.0); LYMPHOCYTES % (AUTO) 22.1 % (20.0-45.0); MEAN CORPUSCULAR VOLUME 92 FL (80-99); PLATELET COUNT 422 K/UL (150-450); RED BLOOD COUNT 2.97 M/UL (4.20-5.40); RED CELL DISTRIBUTION WIDTH 13.1 % (11.6-14.8)
[2018-10-23 06:32] LABS: ALANINE AMINOTRANSFERASE 28 U/L (12-78); ALBUMIN 1.7 G/DL (3.4-5.0); ALBUMIN/GLOBULIN RATIO 0.4 (1.0-2.7); ALKALINE PHOSPHATASE 82 U/L (46-116); ANION GAP 6 mmol/L (5-15); ASPARTATE AMINO TRANSFERASE 25 U/L (15-37); BILIRUBIN,TOTAL 0.2 MG/DL (0.2-1.0); BLOOD UREA NITROGEN 23 mg/dL (7-18); CALCIUM 8.8 MG/DL (8.5-10.1); CARBON DIOXIDE 27 MMOL/L (21-32); CHLORIDE 108 MMOL/L (98-107); POTASSIUM 5.5 MMOL/L (3.5-5.1); SODIUM 141 MMOL/L (136-145)
--- NOTE | 2018-10-23 07:06 | NUR ---
HAND-OFF: Report given to BOUBACAR Yung.
--- NOTE | 2018-10-23 08:00 | NUR ---
NURSE NOTES: Received Pt in no acute distress. Opens eyes spontaneously but non verbal. Patient extubated yesterday at 12:30. RR 22 Saturating 100% lung sounds diminished bilaterally, no distress noted. Contracted on all 4 extremities. SB on the cardiac specialist. ; Bp stable; afebrile. GTF with Glucerna 1.5 running at 35ml/h with 10 cc residuals. Round, nontender abdomen. Roberts 16Fr patent, draining clear yellow urine; PICC on JOLEEN intact. Potassium reported to Dr. Sky, orders obtained. DCed fluids. HOB kept elevated. Bed in low and locked position. Call light within reach. Bed alarm on. Will continue to monitor patient.
--- NOTE | 2018-10-23 08:30 | Pulmonolgy Critical Care Note ---
Critical Care - Asmt/Plan Problems: (1) Acute respiratory failure (2) Healthcare-associated pneumonia (3) Sepsis (4) Diabetes mellitus type II, uncontrolled (5) Feeding by G-tube (6) Hemiparesis affecting left side as late effect of cerebrovascular accident Respiratory: adjust tidal volume, monitor respiratory rate Cardiac: continue pressors Renal: F/U I&O, keep IV fluid, check electrolytes Infectious Disease: check cultures Gastrointestinal: continue feedings/current rate Endocrine: monitor blood sugar, check TSH Neurologic: PRN Ativan, keep patient comfortable Affect: PRN ativan Prophylaxis: Protonix Notes Reviewed: cardio, renal Discussed with: nurses, consultants, 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 - Objective Last 24 Hour Vital Signs Date Time Temp Pulse Resp B/P (MAP) Pulse Ox O2 Delivery O2 Flow Rate FiO2 10/23/18 08:00 Non-Rebreather Non-Rebreather Non-Rebreather 10/23/18 08:00 54 10/23/18 08:00 98.8 68 21 110/45 (66) 100 10/23/18 07:00 70 20 125/39 (67) 100 10/23/18 06:00 72 21 121/43 (69) 96 10/23/18 05:03 66 8 104/58 (73) 94 10/23/18 05:00 73 30 100 10/23/18 04:00 Non-Rebreather Non-Rebreather Non-Rebreather 10/23/18 04:00 58 10/23/18 04:00 58 28 91/36 (54) 100 10/23/18 03:00 64 30 107/33 (57) 100 10/23/18 02:00 67 25 116/43 (67) 100 10/23/18 01:00 71 29 113/41 (65) 100 10/23/18 00:00 98.4 78 39 136/45 (75) 96 10/23/18 00:00 Non-Rebreather Non-Rebreather Non-Rebreather 10/23/18 00:00 74 10/22/18 23:00 73 36 138/54 (82) 100 10/22/18 22:00 76 34 138/46 (76) 100 10/22/18 21:00 69 30 112/46 (68) 100 10/22/18 20:00 98.7 72 21 129/56 (80) 100 10/22/18 20:00 Non-Rebreather Non-Rebreather Non-Rebreather 10/22/18 20:00 70 10/22/18 19:29 61 23 Venturi Mask 14.0 55 10/22/18 19:29 Non-Rebreather 14.0 55 10/22/18 19:29 100 Venturi Mask 14.0 55 10/22/18 19:00 67 20 110/60 (77) 100 10/22/18 18:23 64 110/59 10/22/18 18:00 60 20 98/52 (67) 100 10/22/18 17:00 64 22 95/48 (64) 100 10/22/18 16:00 Non-Rebreather Non-Rebreather Non-Rebreather 10/22/18 16:00 64 10/22/18 16:00 98.6 61 30 120/55 (76) 100 10/22/18 15:00 67 30 122/51 (74) 100 10/22/18 14:00 66 30 128/55 (79) 100 10/22/18 13:00 62 35 122/50 (74) 100 10/22/18 12:39 Non-Rebreather 15.0 100 10/22/18 12:39 74 25 Non-Rebreather 15.0 100 10/22/18 12:37 Non-Rebreather 15.0 100 10/22/18 12:00 61 10/22/18 12:00 25 10/22/18 12:00 98.6 60 30 115/60 (78) 99 10/22/18 12:00 Endotracheal Tube Mechanical Ventilator 10/22/18 11:16 40 10/22/18 11:00 62 35 127/45 (72) 100 10/22/18 10:35 80 39 25 10/22/18 10:00 71 17 110/56 (74) 99 10/22/18 09:00 61 17 98/50 (66) 99 10/22/18 08:40 55 18 25 Status: awake Condition: critical, grave Neck: full ROM Heart: HR/BP stable, regular Abdomen: soft, active bowel sounds Decubiti: stage Accucheck: 122 Critical Care - Subjective ROS Limited/Unobtainable: Yes Interval Events: tolerating extubation FI02: 55 Vent Support Breath Rate: 18 Vent Support Mode: AC Vent Tidal Volume: 450 Sputum Amount: Small PEEP: 5.0 PIP: 17 Tube Feeding Amount: 35 I&O: Intake and Output 10/22/18 10/23/18 19:00 07:00 Intake Total 702 ml 1450 ml Output Total 1230 ml 1470 ml Balance -528 ml -20 ml Intake Free Water 150 ml IV Total 282 ml 820 ml Tube Feeding 420 ml 420 ml Other 60 ml Output Urine Total 1230 ml 1470 ml ET-Tube: 7.0 ET Position: 21 Labs: Laboratory Tests Test 10/22/18 11:00 10/23/18 04:00 Arterial Blood pH 7.445 (7.350-7.450) Arterial Blood Partial Pressure CO2 36.3 mmHg (35.0-45.0) Arterial Blood Partial Pressure O2 65.8 mmHg (75.0-100.0) L Arterial Blood HCO3 24.4 mmol/L (22.0-26.0) Arterial Blood Oxygen Saturation 93.0 % (95-100) L Arterial Blood Base Excess 0.5 (-2-2) Khadar Test Positive White Blood Count 6.0 K/UL (4.8-10.8) Red Blood Count 2.97 M/UL (4.20-5.40) L Hemoglobin 8.9 G/DL (12.0-16.0) L Hematocrit 27.5 % (37.0-47.0) L Mean Corpuscular Volume 92 FL (80-99) Mean Corpuscular Hemoglobin 30.0 PG (27.0-31.0) Mean Corpuscular Hemoglobin Concent 32.4 G/DL (32.0-36.0) Red Cell Distribution Width 13.1 % (11.6-14.8) Platelet Count 422 K/UL (150-450) Mean Platelet Volume 5.2 FL (6.5-10.1) L Neutrophils (%) (Auto) 69.0 % (45.0-75.0) Lymphocytes (%) (Auto) 22.1 % (20.0-45.0) Monocytes (%) (Auto) 6.0 % (1.0-10.0) Eosinophils (%) (Auto) 2.0 % (0.0-3.0) Basophils (%) (Auto) 1.0 % (0.0-2.0) Sodium Level 141 MMOL/L (136-145) Potassium Level 5.5 MMOL/L (3.5-5.1) H Chloride Level 108 MMOL/L (98-107) H Carbon Dioxide Level 27 MMOL/L (21-32) Anion Gap 6 mmol/L (5-15) Blood Urea Nitrogen 23 mg/dL (7-18) H Creatinine 1.0 MG/DL (0.55-1.30) Estimat Glomerular Filtration Rate mL/min (>60) Glucose Level 107 MG/DL (74-106) H Calcium Level 8.8 MG/DL (8.5-10.1) Total Bilirubin 0.2 MG/DL (0.2-1.0) Aspartate Amino Transf (AST/SGOT) 25 U/L (15-37) Alanine Aminotransferase (ALT/SGPT) 28 U/L (12-78) Alkaline Phosphatase 82 U/L (46-116) Pro-B-Type Natriuretic Peptide 2152 pg/mL (0-125) H Total Protein 5.8 G/DL (6.4-8.2) L Albumin 1.7 G/DL (3.4-5.0) L Globulin 4.1 g/dL Albumin/Globulin Ratio 0.4 (1.0-2.7) L Barbara Sky MD Oct 23, 2018 08:30
[2018-10-23] MEDS ORDERED: Sodium Polystyrene Sulfonate 15gm Powder ORAL SCH (08:42)
[2018-10-23] MEDS: Pantoprazole Inj IVP SCH (09:00)
--- NOTE | 2018-10-23 09:37 | Diagnostic Imaging Report ---
EXAM: XR Chest, 1 View CLINICAL HISTORY: DYSPNEA TECHNIQUE: Frontal view of the chest. COMPARISON: Chest x-rays dated 10/22/18 FINDINGS: Lungs: No significant change in diffuse reticular interstitial markings in bilateral lungs, likely representing pulmonary interstitial edema. Sub-segmental atelectasis versus infiltrates in bilateral lung bases, not significantly changed. Pleural space: Possible small bilateral layering pleural effusions, not significantly changed. Heart: Cardiomegaly, stable. Mediastinum: Unremarkable. Bones/joints: Unremarkable. Vasculature: Atherosclerotic calcifications are noted within the aortic arch. Tubes, lines and devices: EKG leads overlie the thorax. Stable positioning of the right arm PICC with catheter tip in the SVC/right atrial junction. IMPRESSION: 1. No significant change in diffuse reticular interstitial markings in bilateral lungs, likely representing pulmonary interstitial edema. 2. Possible small bilateral layering pleural effusions, not significantly changed. 3. Sub-segmental atelectasis versus infiltrates in bilateral lung bases, not significantly changed.
--- NOTE | 2018-10-23 10:00 | NUR ---
NURSE NOTES: Patient turned and repositioned. No new orders at this time. VSS. No distress noted. Will continue plan of care.
--- NOTE | 2018-10-23 10:43 | NUR ---
RD ASSESSMENT & RECOMMENDATIONS SEE CARE ACTIVITY FOR COMPLETE ASSESSMENT DAILY ESTIMATED NEEDS: Needs based on DM, Pulmonary, cardiac/ 55.5kg 25-30 kcals/kg 7369-7755 total kcals 1-1.5 g protein/kg 56-83 g total protein 22-25 mL/kg 8442-4325 total fluid mLs NUTRITION DIAGNOSIS: 1) Swallowing difficulty R/T dysphagia as evidenced by pt on GT feeding, s/p extubation. CURRENT TF:Glucerna 1.5 @ 35ml/hr x 24 hrs ----> provides 2117mg K per day ENTERAL NUTRITION RECOMMENDATIONS: TF CHANGE -> Nepro @ 35ml/hr x 24 hrs to provide 840ml, 1512kcal, 68g prot, 610ml free water - REC TF CHANGE TO NEPRO FOR HYPERKALEMIA - Initiate Nepro @ 20ml/hr x 6hrs, advance 10ml q 4-6 hrs as tolerated to goal rate - HOB over 30 degrees/ water flush per MD. - Provides total of 890mg K/day (1226mg less K/day than current TF) ADDITIONAL RECOMMENDATIONS: * Add JO-ANN BID for skin integrity (w/ healed sacral wound) * RE-calibrate bed scale for accurate CBW -> conflicting wts- Adm wt: 114#, Bed wt: 133# * Monitor HD stability- pressors held at this time * MONITOR K : REC TF CHANGE ABOVE W/ CONSISTENTLY ELEV K * Consider DC or lower IVF- edematous, Na normalized, TF running @ goal .
--- NOTE | 2018-10-23 12:00 | NUR ---
NURSE NOTES: Patient turned and repositioned. No distress noted. Vital signs stable. Will continue plan of care.
--- NOTE | 2018-10-23 14:00 | NUR ---
NURSE NOTES: Patient turned and repositioned. No mew orders at this time. VSS. Family at bedside. Will continue to monitor patient.
--- NOTE | 2018-10-23 14:50 | Infectious Diseases Prog Note ---
Assessment/Plan Problems: (1) Aspiration pneumonia Assessment & Plan: due to pseudomonas aeruginosa and proteus mirabilis , continue meropenem for two weeks , aspiration precaution with aggressive suctioning , keep HOB > 30 degree .monitor CXR. EOT 10/28/18 (2) Sepsis Assessment & Plan: with strep viridans and lactobacillus spp suspect GI source most likely malignancy , continue penicillin G for two weeks at least . recommend colonoscopy in the future to rule colon CA . repeated blood culture is negative so far which confirm clearance (3) Acute respiratory failure Assessment & Plan: due to the above , improving, extubated on ventimask , monitor CXR and ABG. pulmonary is following (4) Diabetes mellitus type II, uncontrolled Assessment & Plan: recommend tight glycemic control to keep blood glucose between 100-140 (5) JEFFY (acute kidney injury) Assessment & Plan: improved, due to hypotension and sepsis, continue hydration , monitor renal function, and UOP Subjective Constitutional: Reports: no symptoms HEENT: Reports: no symptoms Respiratory: Reports: productive cough Breasts: Reports: no symptoms Cardiovascular: Reports: no symptoms Gastrointestinal/Abdominal: Reports: no symptoms Genitourinary: Reports: no symptoms Neurologic: Reports: weakness, confusion Psychiatric: Reports: no symptoms Skin: Reports: ulcer Endocrine: Reports: no symptoms Hematologic: Reports: no symptoms Musculoskeletal: Reports: no symptoms Allergies: Coded Allergies: No Known Allergies (Verified , 08/14/06) Subjective she was extubated, started on ventimask , still in ICU , more awake, no fever. no diarrhea , no vomiting Objective Vital Signs Last 24 Hour Vital Signs Date Time Temp Pulse Resp B/P (MAP) Pulse Ox O2 Delivery O2 Flow Rate FiO2 10/23/18 13:00 66 20 115/50 (71) 100 10/23/18 12:00 61 10/23/18 12:00 98.9 65 24 118/50 (72) 100 10/23/18 12:00 Venturi Mask Venturi Mask Non-Rebreather 10/23/18 11:00 63 23 110/45 (66) 100 10/23/18 10:00 61 25 109/40 (63) 100 10/23/18 09:00 65 22 105/39 (61) 100 10/23/18 08:51 105/55 10/23/18 08:00 Non-Rebreather Non-Rebreather Non-Rebreather 10/23/18 08:00 54 10/23/18 08:00 98.8 68 21 110/45 (66) 100 10/23/18 07:02 66 20 Venturi Mask 14.0 55 10/23/18 07:02 99 Venturi Mask 14.0 55 10/23/18 07:02 Venturi Mask 14.0 55 10/23/18 07:00 70 20 125/39 (67) 100 10/23/18 06:00 72 21 121/43 (69) 96 10/23/18 05:03 66 8 104/58 (73) 94 10/23/18 05:00 73 30 100 10/23/18 04:00 Non-Rebreather Non-Rebreather Non-Rebreather 10/23/18 04:00 58 10/23/18 04:00 58 28 91/36 (54) 100 10/23/18 03:00 64 30 107/33 (57) 100 10/23/18 02:00 67 25 116/43 (67) 100 10/23/18 01:00 71 29 113/41 (65) 100 10/23/18 00:00 98.4 78 39 136/45 (75) 96 10/23/18 00:00 Non-Rebreather Non-Rebreather Non-Rebreather 10/23/18 00:00 74 10/22/18 23:00 73 36 138/54 (82) 100 10/22/18 22:00 76 34 138/46 (76) 100 10/22/18 21:00 69 30 112/46 (68) 100 10/22/18 20:00 98.7 72 21 129/56 (80) 100 10/22/18 20:00 Non-Rebreather Non-Rebreather Non-Rebreather 10/22/18 20:00 70 10/22/18 19:29 61 23 Venturi Mask 14.0 55 10/22/18 19:29 Non-Rebreather 14.0 55 10/22/18 19:29 100 Venturi Mask 14.0 55 10/22/18 19:00 67 20 110/60 (77) 100 10/22/18 18:23 64 110/59 10/22/18 18:00 60 20 98/52 (67) 100 10/22/18 17:00 64 22 95/48 (64) 100 10/22/18 16:00 Non-Rebreather Non-Rebreather Non-Rebreather 10/22/18 16:00 64 10/22/18 16:00 98.6 61 30 120/55 (76) 100 10/22/18 15:00 67 30 122/51 (74) 100 Height (Feet): 5 Height (Inches): 4.00 Weight (Pounds): 138 General Appearance: WD/WN, no acute distress HEENT: normocephalic, atraumatic, anicteric, mucous membranes moist, PERRL, supple, no JVD Respiratory/Chest: chest wall non-tender, no respiratory distress, no accessory muscle use, decreased breath sounds, crackles/rales Cardiovascular: normal peripheral pulses, normal rate, regular rhythm, no gallop/murmur, no JVD Abdomen: normal bowel sounds, soft, non tender, no organomegaly, non distended , no mass, no scars Extremities: no cyanosis, no clubbing Skin: no rash, no lesions, ulcers Neurologic/Psychiatric: alert, unresponsiveness Lymphatic: no neck adenopathy, no groin adenopathy Musculoskeletal: normal muscle bulk Laboratory Tests Test 10/23/18 04:00 White Blood Count 6.0 K/UL (4.8-10.8) Red Blood Count 2.97 M/UL (4.20-5.40) L Hemoglobin 8.9 G/DL (12.0-16.0) L Hematocrit 27.5 % (37.0-47.0) L Mean Corpuscular Volume 92 FL (80-99) Mean Corpuscular Hemoglobin 30.0 PG (27.0-31.0) Mean Corpuscular Hemoglobin Concent 32.4 G/DL (32.0-36.0) Red Cell Distribution Width 13.1 % (11.6-14.8) Platelet Count 422 K/UL (150-450) Mean Platelet Volume 5.2 FL (6.5-10.1) L Neutrophils (%) (Auto) 69.0 % (45.0-75.0) Lymphocytes (%) (Auto) 22.1 % (20.0-45.0) Monocytes (%) (Auto) 6.0 % (1.0-10.0) Eosinophils (%) (Auto) 2.0 % (0.0-3.0) Basophils (%) (Auto) 1.0 % (0.0-2.0) Sodium Level 141 MMOL/L (136-145) Potassium Level 5.5 MMOL/L (3.5-5.1) H Chloride Level 108 MMOL/L (98-107) H Carbon Dioxide Level 27 MMOL/L (21-32) Anion Gap 6 mmol/L (5-15) Blood Urea Nitrogen 23 mg/dL (7-18) H Creatinine 1.0 MG/DL (0.55-1.30) Estimat Glomerular Filtration Rate mL/min (>60) Glucose Level 107 MG/DL (74-106) H Calcium Level 8.8 MG/DL (8.5-10.1) Total Bilirubin 0.2 MG/DL (0.2-1.0) Aspartate Amino Transf (AST/SGOT) 25 U/L (15-37) Alanine Aminotransferase (ALT/SGPT) 28 U/L (12-78) Alkaline Phosphatase 82 U/L (46-116) Pro-B-Type Natriuretic Peptide 2152 pg/mL (0-125) H Total Protein 5.8 G/DL (6.4-8.2) L Albumin 1.7 G/DL (3.4-5.0) L Globulin 4.1 g/dL Albumin/Globulin Ratio 0.4 (1.0-2.7) L Current Medications Medications (Trade) Dose Ordered Sig/Christopher Route PRN Reason Start Time Stop Time Status Last Admin Dose Admin Acetaminophen (Tylenol) 650 mg Q4H PRN GT Mild Pain/Temp > 101 10/13/18 04:30 11/11/18 04:29 10/14/18 05:38 Chlorhexidine Gluconate (Tatiana-Hex 2%) 1 applic DAILY@1999 TOPIC 10/13/18 20:00 11/12/18 19:59 10/22/18 20:37 Dextrose (Dextrose 50%) 25 ml Q30M PRN IV Hypoglycemia 10/13/18 03:30 11/11/18 04:29 Haloperidol Lactate (Haldol) 5 mg Q6H PRN IM Agitation 10/14/18 13:30 11/13/18 13:29 10/14/18 15:37 Insulin Aspart (NovoLOG) EVERY 6 HOURS SUBQ 10/13/18 06:00 11/11/18 06:29 10/23/18 12:00 Meropenem 1 gm/ Sodium Chloride 55 ml @ 110 mls/hr Q12H IVPB 10/14/18 15:00 10/28/18 14:59 10/23/18 03:00 Norepinephrine Bitartrate 4 mg/ Dextrose 250 ml @ 0 mls/hr Q24H IV 10/13/18 09:00 11/12/18 08:59 10/13/18 14:21 Pantoprazole (Protonix) 40 mg DAILY IVP 10/14/18 09:00 11/13/18 08:59 10/23/18 09:00 Penicillin G Potassium 4 mu/ Sodium Chloride 55 ml @ 110 mls/hr Q4H IVPB 10/19/18 20:00 10/26/18 19:59 10/23/18 12:00 Phenylephrine HCl 50 mg/Dextrose 250 ml @ 0 mls/hr Q24H IV 10/13/18 19:30 11/12/18 19:29 Sitagliptin Phosphate (Januvia) 100 mg ACBREAKFAST GT 10/13/18 06:30 11/11/18 06:29 10/23/18 06:42 Porfirio Valentine M.D. Oct 23, 2018 14:49
--- NOTE | 2018-10-23 14:58 | Internal Med Progress Note ---
Subjective Date of Service: Oct 23, 2018 Physician Name Dimitrios Daly Attending Physician Tereso Toro MD Current Medications Medications (Trade) Dose Ordered Sig/Christopher Route PRN Reason Start Time Stop Time Status Last Admin Dose Admin Acetaminophen (Tylenol) 650 mg Q4H PRN GT Mild Pain/Temp > 101 10/13/18 04:30 11/11/18 04:29 10/14/18 05:38 Chlorhexidine Gluconate (Tatiana-Hex 2%) 1 applic DAILY@2000 TOPIC 10/13/18 20:00 11/12/18 19:59 10/22/18 20:37 Dextrose (Dextrose 50%) 25 ml Q30M PRN IV Hypoglycemia 10/13/18 03:30 11/11/18 04:29 Haloperidol Lactate (Haldol) 5 mg Q6H PRN IM Agitation 10/14/18 13:30 11/13/18 13:29 10/14/18 15:37 Insulin Aspart (NovoLOG) EVERY 6 HOURS SUBQ 10/13/18 06:00 11/11/18 06:29 10/23/18 12:00 Meropenem 1 gm/ Sodium Chloride 55 ml @ 110 mls/hr Q12H IVPB 10/14/18 15:00 10/28/18 14:59 10/23/18 03:00 Norepinephrine Bitartrate 4 mg/ Dextrose 250 ml @ 0 mls/hr Q24H IV 10/13/18 09:00 11/12/18 08:59 10/13/18 14:21 Pantoprazole (Protonix) 40 mg DAILY IVP 10/14/18 09:00 11/13/18 08:59 10/23/18 09:00 Penicillin G Potassium 4 mu/ Sodium Chloride 55 ml @ 110 mls/hr Q4H IVPB 10/19/18 20:00 10/26/18 19:59 10/23/18 12:00 Phenylephrine HCl 50 mg/Dextrose 250 ml @ 0 mls/hr Q24H IV 10/13/18 19:30 11/12/18 19:29 Sitagliptin Phosphate (Januvia) 100 mg ACBREAKFAST GT 10/13/18 06:30 11/11/18 06:29 10/23/18 06:42 Allergies: Coded Allergies: No Known Allergies (Verified , 08/14/06) ROS Limited/Unobtainable: Yes Subjective 78 YO F admitted with pneumonia. Now sepsis and hypotension. Intubated and sedated. ICU. Cover for Int Med-Dr Toro. Continues on levophed and phenylphrine Objective Last Vital Signs Date Time Temp Pulse Resp B/P (MAP) Pulse Ox O2 Delivery O2 Flow Rate FiO2 10/23/18 13:00 66 20 115/50 (71) 100 10/23/18 12:00 98.9 10/23/18 12:00 Venturi Mask Venturi Mask Non-Rebreather 10/23/18 07:02 14.0 55 Laboratory Tests Test 10/23/18 04:00 White Blood Count 6.0 K/UL (4.8-10.8) Red Blood Count 2.97 M/UL (4.20-5.40) L Hemoglobin 8.9 G/DL (12.0-16.0) L Hematocrit 27.5 % (37.0-47.0) L Mean Corpuscular Volume 92 FL (80-99) Mean Corpuscular Hemoglobin 30.0 PG (27.0-31.0) Mean Corpuscular Hemoglobin Concent 32.4 G/DL (32.0-36.0) Red Cell Distribution Width 13.1 % (11.6-14.8) Platelet Count 422 K/UL (150-450) Mean Platelet Volume 5.2 FL (6.5-10.1) L Neutrophils (%) (Auto) 69.0 % (45.0-75.0) Lymphocytes (%) (Auto) 22.1 % (20.0-45.0) Monocytes (%) (Auto) 6.0 % (1.0-10.0) Eosinophils (%) (Auto) 2.0 % (0.0-3.0) Basophils (%) (Auto) 1.0 % (0.0-2.0) Sodium Level 141 MMOL/L (136-145) Potassium Level 5.5 MMOL/L (3.5-5.1) H Chloride Level 108 MMOL/L (98-107) H Carbon Dioxide Level 27 MMOL/L (21-32) Anion Gap 6 mmol/L (5-15) Blood Urea Nitrogen 23 mg/dL (7-18) H Creatinine 1.0 MG/DL (0.55-1.30) Estimat Glomerular Filtration Rate mL/min (>60) Glucose Level 107 MG/DL (74-106) H Calcium Level 8.8 MG/DL (8.5-10.1) Total Bilirubin 0.2 MG/DL (0.2-1.0) Aspartate Amino Transf (AST/SGOT) 25 U/L (15-37) Alanine Aminotransferase (ALT/SGPT) 28 U/L (12-78) Alkaline Phosphatase 82 U/L (46-116) Pro-B-Type Natriuretic Peptide 2152 pg/mL (0-125) H Total Protein 5.8 G/DL (6.4-8.2) L Albumin 1.7 G/DL (3.4-5.0) L Globulin 4.1 g/dL Albumin/Globulin Ratio 0.4 (1.0-2.7) L Intake and Output 10/22/18 10/23/18 19:00 07:00 Intake Total 702 ml 1450 ml Output Total 1230 ml 1470 ml Balance -528 ml -20 ml Intake Free Water 150 ml IV Total 282 ml 820 ml Tube Feeding 420 ml 420 ml Other 60 ml Output Urine Total 1230 ml 1470 ml Objective General Appearance: WD/WN, moderate distress, lethargic EENT: PERRL/EOMI, normal ENT inspection Neck: non-tender, normal alignment, supple Cardiovascular: normal peripheral pulses, normal rate, regular rhythm, no gallop/murmur, no JVD Respiratory/Chest: Mech Vent; respiratory distress, crackles/rales, rhonchi - bilaterally, expiratory wheezing Abdomen: normal bowel sounds, non tender, soft, no organomegaly, no mass 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 Failed weaning protocol (4) Sepsis Assessment & Plan: strep viridans and lactobacillus. Cont meropenem and penicillin G per ID (5) Diabetes mellitus type II, uncontrolled (6) HTN (hypertension) (7) Hemiparesis affecting left side as late effect of cerebrovascular accident (8) Healthcare-associated pneumonia Assessment & Plan: Continue penicillin G and Meropenem per ID (9) Hypotension Assessment & Plan: due to sepsis; continue levophed (10) Sepsis (11) Diarrhea Assessment & Plan: stool for C. Diff and cult and sens (12) Elevated troponin Assessment & Plan: See cardiology note. (13) CHF (congestive heart failure) Status: not improved Assessment/Plan Discussed with Emily rios via telephone. Dimitrios Daly MD Oct 23, 2018 14:58
--- NOTE | 2018-10-23 15:18 | NUR ---
HAND-OFF: Report given to Ana RN using SBAR. VSS. No distres noted.
--- NOTE | 2018-10-23 15:30 | NUR ---
NURSE NOTES: Received patient from BOUBACAR Yung. Patient resting in bed, opens eyes spontaneously, unable to follow commands, non-verbal. s/p extubation 10/22. On Venturi mask FiO2 55%, O2 saturating 100%. No acute distress noted. Sinus rhythm HR 72 noted on cafeteria monitor. G-tube intact, running Glucerna 1.5 @35ml/hr. HOB elevated. Roberts cath intact and patent, draining yellow urine by gravity. Right upper arm triple lumen PICC intact. Dressing intact, clean and dry. Bed in lowest position, locked. Call light within reach. Bed alarm on. Will continue to monitor.
--- NOTE | 2018-10-23 15:52 | Cardiology Progress Note ---
Assessment/Plan Assessment/Plan 1. Respiratory failure. 2. Bilateral pneumoniae. 3. History of cerebrovascular accident. 4. Azotemia and renal insufficiency. 5. Anemia. 6. Relative thrombocytopenia 7. tele artifact due to shaking ? related to cough?? 8. bacteremia iv abx reeept bc areneg off vent tele observation sinus occasional artifact echo noted repeat bc neg still overall improved Subjective ROS Limited/Unobtainable: Yes Objective Last 24 Hour Vital Signs Date Time Temp Pulse Resp B/P (MAP) Pulse Ox O2 Delivery O2 Flow Rate FiO2 10/23/18 15:00 61 22 95/45 (62) 100 10/23/18 14:00 62 20 98/44 (62) 100 10/23/18 13:00 66 20 115/50 (71) 100 10/23/18 12:00 61 10/23/18 12:00 98.9 65 24 118/50 (72) 100 10/23/18 12:00 Venturi Mask Venturi Mask Non-Rebreather 10/23/18 11:00 63 23 110/45 (66) 100 10/23/18 10:00 61 25 109/40 (63) 100 10/23/18 09:00 65 22 105/39 (61) 100 10/23/18 08:51 105/55 10/23/18 08:00 Non-Rebreather Non-Rebreather Non-Rebreather 10/23/18 08:00 54 10/23/18 08:00 98.8 68 21 110/45 (66) 100 10/23/18 07:02 66 20 Venturi Mask 14.0 55 10/23/18 07:02 99 Venturi Mask 14.0 55 10/23/18 07:02 Venturi Mask 14.0 55 10/23/18 07:00 70 20 125/39 (67) 100 10/23/18 06:00 72 21 121/43 (69) 96 10/23/18 05:03 66 8 104/58 (73) 94 10/23/18 05:00 73 30 100 10/23/18 04:00 Non-Rebreather Non-Rebreather Non-Rebreather 10/23/18 04:00 58 10/23/18 04:00 58 28 91/36 (54) 100 10/23/18 03:00 64 30 107/33 (57) 100 10/23/18 02:00 67 25 116/43 (67) 100 10/23/18 01:00 71 29 113/41 (65) 100 10/23/18 00:00 98.4 78 39 136/45 (75) 96 10/23/18 00:00 Non-Rebreather Non-Rebreather Non-Rebreather 10/23/18 00:00 74 10/22/18 23:00 73 36 138/54 (82) 100 10/22/18 22:00 76 34 138/46 (76) 100 10/22/18 21:00 69 30 112/46 (68) 100 10/22/18 20:00 98.7 72 21 129/56 (80) 100 10/22/18 20:00 Non-Rebreather Non-Rebreather Non-Rebreather 10/22/18 20:00 70 10/22/18 19:29 61 23 Venturi Mask 14.0 55 10/22/18 19:29 Non-Rebreather 14.0 55 10/22/18 19:29 100 Venturi Mask 14.0 55 10/22/18 19:00 67 20 110/60 (77) 100 10/22/18 18:23 64 110/59 10/22/18 18:00 60 20 98/52 (67) 100 10/22/18 17:00 64 22 95/48 (64) 100 10/22/18 16:00 Non-Rebreather Non-Rebreather Non-Rebreather 10/22/18 16:00 64 10/22/18 16:00 98.6 61 30 120/55 (76) 100 General Appearance: no apparent distress, alert Neck: supple Cardiovascular: regular rhythm, systolic murmur Respiratory/Chest: lungs clear Abdomen: normal bowel sounds, non tender, soft Extremities: no swelling - contracted Intake and Output 10/22/18 10/23/18 19:00 07:00 Intake Total 702 ml 1450 ml Output Total 1230 ml 1470 ml Balance -528 ml -20 ml Intake Free Water 150 ml IV Total 282 ml 820 ml Tube Feeding 420 ml 420 ml Other 60 ml Output Urine Total 1230 ml 1470 ml Laboratory Tests Test 10/23/18 04:00 White Blood Count 6.0 K/UL (4.8-10.8) Red Blood Count 2.97 M/UL (4.20-5.40) L Hemoglobin 8.9 G/DL (12.0-16.0) L Hematocrit 27.5 % (37.0-47.0) L Mean Corpuscular Volume 92 FL (80-99) Mean Corpuscular Hemoglobin 30.0 PG (27.0-31.0) Mean Corpuscular Hemoglobin Concent 32.4 G/DL (32.0-36.0) Red Cell Distribution Width 13.1 % (11.6-14.8) Platelet Count 422 K/UL (150-450) Mean Platelet Volume 5.2 FL (6.5-10.1) L Neutrophils (%) (Auto) 69.0 % (45.0-75.0) Lymphocytes (%) (Auto) 22.1 % (20.0-45.0) Monocytes (%) (Auto) 6.0 % (1.0-10.0) Eosinophils (%) (Auto) 2.0 % (0.0-3.0) Basophils (%) (Auto) 1.0 % (0.0-2.0) Sodium Level 141 MMOL/L (136-145) Potassium Level 5.5 MMOL/L (3.5-5.1) H Chloride Level 108 MMOL/L (98-107) H Carbon Dioxide Level 27 MMOL/L (21-32) Anion Gap 6 mmol/L (5-15) Blood Urea Nitrogen 23 mg/dL (7-18) H Creatinine 1.0 MG/DL (0.55-1.30) Estimat Glomerular Filtration Rate mL/min (>60) Glucose Level 107 MG/DL (74-106) H Calcium Level 8.8 MG/DL (8.5-10.1) Total Bilirubin 0.2 MG/DL (0.2-1.0) Aspartate Amino Transf (AST/SGOT) 25 U/L (15-37) Alanine Aminotransferase (ALT/SGPT) 28 U/L (12-78) Alkaline Phosphatase 82 U/L (46-116) Pro-B-Type Natriuretic Peptide 2152 pg/mL (0-125) H Total Protein 5.8 G/DL (6.4-8.2) L Albumin 1.7 G/DL (3.4-5.0) L Globulin 4.1 g/dL Albumin/Globulin Ratio 0.4 (1.0-2.7) L Huber Humphrey MD Oct 23, 2018 15:51
--- NOTE | 2018-10-23 17:11 | NUR ---
NURSE NOTES: Patient was repositioned, kept clean and dry. oral care provided. VSS.
[2018-10-23] MEDS ORDERED: Acetaminophen 650mg/20.3ml GT PRN (19:00)
--- NOTE | 2018-10-23 19:05 | NUR ---
TRANSFER TO FLOOR: Patient transferred to [facility]. Report given to BOUBACAR Dooley. Belongings and medications given to primary RN. Family informed of transfer.
--- NOTE | 2018-10-23 19:06 | NUR ---
NURSE NOTES: Bedside report received from BOUBACAR Perez. Nonverbal, spontaneous eye opening, unable to follow commands. Venturi mask 55% fiO2, sating 100%. Glucerna 1.5 @ 35 GOAL, tolerating well. Roberts patent; for urinary retention. Skin is clean and dry, dressings intact. JOLEEN PICC; asymptomatic. Bed is locked in lowest position, call cates within reach, bed alarm on, side rails x3. Will continue to monitor and follow plan of care.
[2018-10-23] MEDS ORDERED: Haloperidol 5mg/ml Inj IM PRN (19:30)
[2018-10-23] MEDS: Dyna-Hex 2% Top Sol 2oz TOPIC SCH (20:40)
--- NOTE | 2018-10-23 23:34 | General Progress Note ---
Assessment/Plan Problem List: (1) Toxic encephalopathy ICD Codes: G92 - Toxic encephalopathy SNOMED: 31078994 Assessment/Plan Haldol 5mg Im q6hr prn/agitation dw RN Subjective Allergies: Coded Allergies: No Known Allergies (Verified , 08/14/06) Subjective the pt is more manageable sleep no agitation Objective Last 24 Hour Vital Signs Date Time Temp Pulse Resp B/P (MAP) Pulse Ox O2 Delivery O2 Flow Rate FiO2 10/23/18 20:00 98.1 67 20 123/60 (81) 100 10/23/18 20:00 60 10/23/18 20:00 Venturi Mask 10/23/18 18:00 67 17 118/53 (74) 100 10/23/18 17:00 98.8 79 19 110/56 (74) 100 10/23/18 16:00 Venturi Mask 10/23/18 16:00 67 26 108/50 (69) 100 10/23/18 16:00 70 10/23/18 15:00 61 22 95/45 (62) 100 10/23/18 14:00 62 20 98/44 (62) 100 10/23/18 13:00 66 20 115/50 (71) 100 10/23/18 12:00 61 10/23/18 12:00 98.9 65 24 118/50 (72) 100 10/23/18 12:00 Venturi Mask Venturi Mask Non-Rebreather 10/23/18 11:00 63 23 110/45 (66) 100 10/23/18 10:00 61 25 109/40 (63) 100 10/23/18 09:00 65 22 105/39 (61) 100 10/23/18 08:51 105/55 10/23/18 08:00 Non-Rebreather Non-Rebreather Non-Rebreather 10/23/18 08:00 54 10/23/18 08:00 98.8 68 21 110/45 (66) 100 10/23/18 07:02 66 20 Venturi Mask 14.0 55 10/23/18 07:02 99 Venturi Mask 14.0 55 10/23/18 07:02 Venturi Mask 14.0 55 10/23/18 07:00 70 20 125/39 (67) 100 10/23/18 06:00 72 21 121/43 (69) 96 10/23/18 05:03 66 8 104/58 (73) 94 10/23/18 05:00 73 30 100 10/23/18 04:00 Non-Rebreather Non-Rebreather Non-Rebreather 10/23/18 04:00 58 10/23/18 04:00 58 28 91/36 (54) 100 10/23/18 03:00 64 30 107/33 (57) 100 10/23/18 02:00 67 25 116/43 (67) 100 10/23/18 01:00 71 29 113/41 (65) 100 10/23/18 00:00 98.4 78 39 136/45 (75) 96 10/23/18 00:00 Non-Rebreather Non-Rebreather Non-Rebreather 10/23/18 00:00 74 Intake and Output 10/22/18 10/23/18 18:59 06:59 Intake Total 780 ml 1422 ml Output Total 1230 ml 1470 ml Balance -450 ml -48 ml Intake Free Water 50 ml 150 ml IV Total 310 ml 792 ml Tube Feeding 420 ml 420 ml Other 60 ml Output Urine Total 1230 ml 1470 ml Laboratory Tests 10/23/18 04:00: White Blood Count 6.0, Red Blood Count 2.97L, Hemoglobin 8.9L, Hematocrit 27.5L , Mean Corpuscular Volume 92, Mean Corpuscular Hemoglobin 30.0, Mean Corpuscular Hemoglobin Concent 32.4, Red Cell Distribution Width 13.1, Platelet Count 422, Mean Platelet Volume 5.2L, Neutrophils (%) (Auto) 69.0, Lymphocytes ( %) (Auto) 22.1, Monocytes (%) (Auto) 6.0, Eosinophils (%) (Auto) 2.0, Basophils (%) (Auto) 1.0, Sodium Level 141, Potassium Level 5.5H, Chloride Level 108H, Carbon Dioxide Level 27, Anion Gap 6, Blood Urea Nitrogen 23H, Creatinine 1.0, Estimat Glomerular Filtration Rate , Glucose Level 107H, Calcium Level 8.8, Total Bilirubin 0.2, Aspartate Amino Transf (AST/SGOT) 25, Alanine Aminotransferase (ALT/SGPT) 28, Alkaline Phosphatase 82, Pro-B-Type Natriuretic Peptide 2152H, Total Protein 5.8L, Albumin 1.7L, Globulin 4.1, Albumin/Globulin Ratio 0.4L Height (Feet): 5 Height (Inches): 4.00 Weight (Pounds): 138 General Appearance: lethargic, confused, agitated Trever Easley MD Oct 23, 2018 23:34
[2018-10-24] VITALS: BP 120/60
[2018-10-24] MEDS: Penicillin G Potassium 4 MU in NS 55 ML IVPB SCH ×5 (03:02→20:30)
[2018-10-24] MEDS: Meropenem 1 GM in NS 55 ML IVPB SCH ×2 (03:02→15:22)
[2018-10-24 04:00] VITALS: BP 124/61
[2018-10-24 05:34] LABS: BASOPHILS % (AUTO) 1.3 % (0.0-2.0); EOSINOPHILS % (AUTO) 3.6 % (0.0-3.0); HEMOGLOBIN 9.4 G/DL (12.0-16.0); LYMPHOCYTES % (AUTO) 29.7 % (20.0-45.0); MEAN CORPUSCULAR VOLUME 93 FL (80-99); MONOCYTES % (AUTO) 7.9 % (1.0-10.0); NEUTROPHILS % (AUTO) 57.6 % (45.0-75.0); PLATELET COUNT 423 K/UL (150-450); RED BLOOD COUNT 3.13 M/UL (4.20-5.40); WHITE BLOOD COUNT 5.2 K/UL (4.8-10.8)
[2018-10-24] MEDS: NovoLOG Insulin Flexpen SUBQ SCH ×3 (05:41→17:42)
[2018-10-24 06:10] LABS: ALANINE AMINOTRANSFERASE 30 U/L (12-78); ALBUMIN 1.8 G/DL (3.4-5.0); ALBUMIN/GLOBULIN RATIO 0.4 (1.0-2.7); ALKALINE PHOSPHATASE 88 U/L (46-116); ANION GAP 3 mmol/L (5-15); ASPARTATE AMINO TRANSFERASE 25 U/L (15-37); BILIRUBIN,TOTAL 0.3 MG/DL (0.2-1.0); BLOOD UREA NITROGEN 23 mg/dL (7-18); CALCIUM 9.3 MG/DL (8.5-10.1); CARBON DIOXIDE 31 MMOL/L (21-32); CHLORIDE 109 MMOL/L (98-107); CREATININE 0.8 MG/DL (0.55-1.30); POTASSIUM 5.3 MMOL/L (3.5-5.1); SODIUM 143 MMOL/L (136-145)
--- NOTE | 2018-10-24 07:21 | NUR ---
HAND-OFF: Report given to BOUBACAR Cary.
--- NOTE | 2018-10-24 07:25 | NUR ---
NURSE NOTES: Report received from Soumya Hauser RN.Pt resting quietly in bed awake,noted no resp distress on 2L NC ,O2 sat 100%,no signs of pain or discomfort,SR on the monitor .GTF glucerna 1.5 at 35 ml/hr no residual noted,rodriguez cath for urinary retention,in placed draining yellow urine,skin warm and dry to touch,JOLEEN PICC line intact,SR x2 up,HOB elevated,bed lock in lowest position will continue with plan of care.
[2018-10-24 08:00] VITALS: BP 120/60
[2018-10-24] MEDS: Pantoprazole Inj IVP SCH (08:30)
--- NOTE | 2018-10-24 09:04 | Diagnostic Imaging Report ---
EXAM: XR Chest, 1 View CLINICAL HISTORY: DYSPNEA TECHNIQUE: Frontal view of the chest. COMPARISON: Chest x-ray dated 10/23/18 FINDINGS: Lungs: No significant change in diffusely increased interstitial markings. Sub-segmental atelectasis versus infiltrates in bilateral lung bases, stable. Pleural space: Small bilateral layering pleural effusions. Heart: Unremarkable. No cardiomegaly. Mediastinum: Unremarkable. Bones/joints: Unremarkable. Vasculature: Atherosclerotic calcifications are noted within the aortic arch. Tubes, lines and devices: EKG leads overlie the thorax. Stable positioning of a right arm PICC with catheter tip in the SVC/right atrial junction. IMPRESSION: 1. Small bilateral layering pleural effusions, not significantly changed compared to the prior exam. 2. No significant change in diffusely increased interstitial markings. 3. Sub-segmental atelectasis versus infiltrates in bilateral lung bases, stable.
--- NOTE | 2018-10-24 11:00 | NUR ---
NURSE NOTES: Family member ,the neice at bedside,updated on pt's status and plans of care.
[2018-10-24 12:00] VITALS: BP 129/63
[2018-10-24 15:32] VITALS: BP 119/69
--- NOTE | 2018-10-24 15:41 | Pulmonology Progress Note ---
Assessment/Plan Problems: (1) Acute respiratory failure (2) Healthcare-associated pneumonia (3) COPD (chronic obstructive pulmonary disease) (4) Hemiparesis affecting left side as late effect of cerebrovascular accident (5) Feeding by G-tube (6) HTN (hypertension) Assessment/Plan improving tolerating extubation opening eyes all cultures reviewed lasix sprn dvt prophylaxis tolerating feeding check electrolytes titrate fio2 to sat of 92% Subjective ROS Limited/Unobtainable: Yes Constitutional: Reports: no symptoms HEENT: Repors: no symptoms Allergies: Coded Allergies: No Known Allergies (Verified , 08/14/06) Objective Last 24 Hour Vital Signs Date Time Temp Pulse Resp B/P (MAP) Pulse Ox O2 Delivery O2 Flow Rate FiO2 10/24/18 15:32 97.7 96 20 119/69 (86) 100 10/24/18 12:04 Nasal Cannula 2.0 10/24/18 12:00 73 10/24/18 12:00 97.9 71 20 129/63 (85) 100 10/24/18 08:00 Nasal Cannula 2.0 10/24/18 08:00 97.9 65 20 120/60 (80) 100 10/24/18 04:00 97.7 61 28 124/61 (82) 100 10/24/18 04:00 Nasal Cannula 2.0 10/24/18 04:00 95 10/24/18 00:00 Venturi Mask 10/24/18 00:00 60 10/24/18 00:00 97.9 66 20 120/60 (80) 100 10/23/18 20:00 98.1 67 20 123/60 (81) 100 10/23/18 20:00 60 10/23/18 20:00 Venturi Mask 10/23/18 18:55 69 20 Venturi Mask 14.0 55 10/23/18 18:55 Venturi Mask 14.0 55 10/23/18 18:55 100 Venturi Mask 14.0 55 10/23/18 18:00 67 17 118/53 (74) 100 10/23/18 17:00 98.8 79 19 110/56 (74) 100 10/23/18 16:00 Venturi Mask 10/23/18 16:00 67 26 108/50 (69) 100 10/23/18 16:00 70 Intake and Output 10/23/18 10/24/18 19:00 07:00 Intake Total 585 ml 730 ml Output Total 800 ml 600 ml Balance -215 ml 130 ml Intake Free Water 90 ml IV Total 165 ml 220 ml Tube Feeding 420 ml 420 ml Output Urine Total 800 ml 600 ml General Appearance: WD/WN HEENT: normocephalic, atraumatic Respiratory/Chest: chest wall non-tender, normal breath sounds Breasts: no masses Cardiovascular: normal peripheral pulses Abdomen: normal bowel sounds, no organomegaly Genitourinary: normal external genitalia Extremities: no clubbing Skin: no lesions Laboratory Tests 10/24/18 04:00: White Blood Count 5.2, Red Blood Count 3.13L, Hemoglobin 9.4L, Hematocrit 29.0L , Mean Corpuscular Volume 93, Mean Corpuscular Hemoglobin 30.0, Mean Corpuscular Hemoglobin Concent 32.4, Red Cell Distribution Width 14.0, Platelet Count 423, Mean Platelet Volume 5.6L, Neutrophils (%) (Auto) 57.6, Lymphocytes ( %) (Auto) 29.7, Monocytes (%) (Auto) 7.9, Eosinophils (%) (Auto) 3.6H, Basophils (%) (Auto) 1.3, Sodium Level 143, Potassium Level 5.3H, Chloride Level 109H, Carbon Dioxide Level 31, Anion Gap 3L, Blood Urea Nitrogen 23H, Creatinine 0.8, Estimat Glomerular Filtration Rate , Glucose Level 109H, Calcium Level 9.3, Total Bilirubin 0.3, Aspartate Amino Transf (AST/SGOT) 25, Alanine Aminotransferase (ALT/SGPT) 30, Alkaline Phosphatase 88, Pro-B-Type Natriuretic Peptide 1657H, Total Protein 6.1L, Albumin 1.8L, Globulin 4.3, Albumin/Globulin Ratio 0.4L Current Medications Medications (Trade) Dose Ordered Sig/Christopher Route PRN Reason Start Time Stop Time Status Last Admin Dose Admin Acetaminophen (Tylenol) 650 mg Q4H PRN GT Mild Pain/Temp > 101 10/23/18 19:00 11/11/18 18:59 Chlorhexidine Gluconate (Tatiana-Hex 2%) 1 applic DAILY@2000 TOPIC 10/23/18 20:00 11/12/18 19:59 10/23/18 20:40 Dextrose (Dextrose 50%) 25 ml Q30M PRN IV Hypoglycemia 10/23/18 19:00 11/11/18 04:29 Haloperidol Lactate (Haldol) 5 mg Q6H PRN IM Agitation 10/23/18 19:30 11/13/18 13:29 Insulin Aspart (NovoLOG) EVERY 6 HOURS SUBQ 10/24/18 00:00 11/11/18 06:29 Meropenem 1 gm/ Sodium Chloride 55 ml @ 110 mls/hr Q12H IVPB 10/24/18 03:00 10/28/18 14:59 10/24/18 15:22 Pantoprazole (Protonix) 40 mg DAILY IVP 10/24/18 09:00 11/13/18 08:59 10/24/18 08:30 Penicillin G Potassium 4 mu/ Sodium Chloride 55 ml @ 110 mls/hr Q4H IVPB 10/23/18 20:00 11/02/18 19:59 10/24/18 12:09 Sitagliptin Phosphate (Januvia) 100 mg ACBREAKFAST GT 10/24/18 06:30 11/11/18 06:29 10/24/18 05:41 Barbara Sky MD Oct 24, 2018 15:41
[2018-10-24] MEDS ORDERED: NS 275ml ONE ×2 (16:30→16:43)
--- NOTE | 2018-10-24 16:32 | Internal Med Progress Note ---
Subjective Date of Service: Oct 24, 2018 Physician Name Dimitrios Daly Attending Physician Tereso Toro MD Current Medications Medications (Trade) Dose Ordered Sig/Christopher Route PRN Reason Start Time Stop Time Status Last Admin Dose Admin Acetaminophen (Tylenol) 650 mg Q4H PRN GT Mild Pain/Temp > 101 10/23/18 19:00 11/11/18 18:59 Chlorhexidine Gluconate (Tatiana-Hex 2%) 1 applic DAILY@2000 TOPIC 10/23/18 20:00 11/12/18 19:59 10/23/18 20:40 Dextrose (Dextrose 50%) 25 ml Q30M PRN IV Hypoglycemia 10/23/18 19:00 11/11/18 04:29 Haloperidol Lactate (Haldol) 5 mg Q6H PRN IM Agitation 10/23/18 19:30 11/13/18 13:29 Insulin Aspart (NovoLOG) EVERY 6 HOURS SUBQ 10/24/18 00:00 11/11/18 06:29 Meropenem 1 gm/ Sodium Chloride 55 ml @ 110 mls/hr Q12H IVPB 10/24/18 03:00 10/28/18 14:59 10/24/18 15:22 Pantoprazole (Protonix) 40 mg DAILY IVP 10/24/18 09:00 11/13/18 08:59 10/24/18 08:30 Penicillin G Potassium 4 mu/ Sodium Chloride 55 ml @ 110 mls/hr Q4H IVPB 10/23/18 20:00 11/02/18 19:59 10/24/18 16:24 Sitagliptin Phosphate (Januvia) 100 mg ACBREAKFAST GT 10/24/18 06:30 11/11/18 06:29 10/24/18 05:41 Allergies: Coded Allergies: No Known Allergies (Verified , 08/14/06) ROS Limited/Unobtainable: Yes Subjective 78 YO F admitted with pneumonia. Now sepsis and hypotension. Extubated . KATERINE. Cover for Int Med-Dr Toro. Off pressors. Tolerating nasal canula Objective Last Vital Signs Date Time Temp Pulse Resp B/P (MAP) Pulse Ox O2 Delivery O2 Flow Rate FiO2 10/24/18 16:09 Nasal Cannula 2.0 10/24/18 15:32 97.7 96 20 119/69 (86) 100 10/23/18 18:55 55 Laboratory Tests Test 10/24/18 04:00 White Blood Count 5.2 K/UL (4.8-10.8) Red Blood Count 3.13 M/UL (4.20-5.40) L Hemoglobin 9.4 G/DL (12.0-16.0) L Hematocrit 29.0 % (37.0-47.0) L Mean Corpuscular Volume 93 FL (80-99) Mean Corpuscular Hemoglobin 30.0 PG (27.0-31.0) Mean Corpuscular Hemoglobin Concent 32.4 G/DL (32.0-36.0) Red Cell Distribution Width 14.0 % (11.6-14.8) Platelet Count 423 K/UL (150-450) Mean Platelet Volume 5.6 FL (6.5-10.1) L Neutrophils (%) (Auto) 57.6 % (45.0-75.0) Lymphocytes (%) (Auto) 29.7 % (20.0-45.0) Monocytes (%) (Auto) 7.9 % (1.0-10.0) Eosinophils (%) (Auto) 3.6 % (0.0-3.0) H Basophils (%) (Auto) 1.3 % (0.0-2.0) Sodium Level 143 MMOL/L (136-145) Potassium Level 5.3 MMOL/L (3.5-5.1) H Chloride Level 109 MMOL/L (98-107) H Carbon Dioxide Level 31 MMOL/L (21-32) Anion Gap 3 mmol/L (5-15) L Blood Urea Nitrogen 23 mg/dL (7-18) H Creatinine 0.8 MG/DL (0.55-1.30) Estimat Glomerular Filtration Rate mL/min (>60) Glucose Level 109 MG/DL (74-106) H Calcium Level 9.3 MG/DL (8.5-10.1) Total Bilirubin 0.3 MG/DL (0.2-1.0) Aspartate Amino Transf (AST/SGOT) 25 U/L (15-37) Alanine Aminotransferase (ALT/SGPT) 30 U/L (12-78) Alkaline Phosphatase 88 U/L (46-116) Pro-B-Type Natriuretic Peptide 1657 pg/mL (0-125) H Total Protein 6.1 G/DL (6.4-8.2) L Albumin 1.8 G/DL (3.4-5.0) L Globulin 4.3 g/dL Albumin/Globulin Ratio 0.4 (1.0-2.7) L Intake and Output 10/23/18 10/24/18 19:00 07:00 Intake Total 585 ml 730 ml Output Total 800 ml 600 ml Balance -215 ml 130 ml Intake Free Water 90 ml IV Total 165 ml 220 ml Tube Feeding 420 ml 420 ml Output Urine Total 800 ml 600 ml Objective General Appearance: WD/WN, moderate distress, lethargic EENT: PERRL/EOMI, normal ENT inspection Neck: non-tender, normal alignment, supple Cardiovascular: normal peripheral pulses, normal rate, regular rhythm, no gallop/murmur, no JVD Respiratory/Chest: Nasal canula; respiratory distress, crackles/rales, rhonchi - bilaterally, expiratory wheezing Abdomen: normal bowel sounds, non tender, soft, no organomegaly, no mass 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 (4) Sepsis Assessment & Plan: strep viridans and lactobacillus. Cont meropenem and penicillin G per ID (5) Diabetes mellitus type II, uncontrolled (6) HTN (hypertension) (7) Hemiparesis affecting left side as late effect of cerebrovascular accident (8) Healthcare-associated pneumonia Assessment & Plan: Continue penicillin G and Meropenem per ID (9) Hypotension Assessment & Plan: due to sepsis (10) Sepsis (11) Diarrhea Assessment & Plan: C. Diff neg. (12) Elevated troponin Assessment & Plan: See cardiology note. (13) CHF (congestive heart failure) Status: progressing Assessment/Plan Discussed with Emily rios via telephone. Dimitrios Daly MD Oct 24, 2018 16:32
[2018-10-24] MEDS ORDERED: Tubing IV Secondary IV ONE (16:43)
--- NOTE | 2018-10-24 18:09 | Infectious Diseases Prog Note ---
Assessment/Plan Problems: (1) Aspiration pneumonia Assessment & Plan: due to pseudomonas aeruginosa and proteus mirabilis , continue meropenem for two weeks , aspiration precaution with aggressive suctioning , keep HOB > 30 degree .monitor CXR. EOT 10/28/18 (2) Sepsis Assessment & Plan: with strep viridans and lactobacillus spp suspect GI source most likely malignancy , continue penicillin G for two weeks starting from the clearance date . recommend colonoscopy in the future to rule colon CA . repeated blood culture is negative so far which confirm clearance. 11/02/18 (3) Acute respiratory failure Assessment & Plan: due to the above , improving, extubated on ventimask , monitor CXR and ABG. pulmonary is following (4) Diabetes mellitus type II, uncontrolled Assessment & Plan: recommend tight glycemic control to keep blood glucose between 100-140 (5) JEFFY (acute kidney injury) Assessment & Plan: improved, due to hypotension and sepsis, continue hydration , monitor renal function, and UOP Subjective Constitutional: Reports: no symptoms HEENT: Reports: no symptoms Respiratory: Reports: no symptoms Breasts: Reports: no symptoms Cardiovascular: Reports: no symptoms Gastrointestinal/Abdominal: Reports: no symptoms Genitourinary: Reports: no symptoms Neurologic: Reports: no symptoms Psychiatric: Reports: no symptoms Skin: Reports: no symptoms Endocrine: Reports: no symptoms Hematologic: Reports: no symptoms Musculoskeletal: Reports: no symptoms Allergies: Coded Allergies: No Known Allergies (Verified , 08/14/06) Subjective she was extubated, started on ventimask , still in ICU , more awake, no fever. no diarrhea , no vomiting Objective Vital Signs Last 24 Hour Vital Signs Date Time Temp Pulse Resp B/P (MAP) Pulse Ox O2 Delivery O2 Flow Rate FiO2 10/24/18 16:09 Nasal Cannula 2.0 10/24/18 16:00 69 10/24/18 15:32 97.7 96 20 119/69 (86) 100 10/24/18 12:04 Nasal Cannula 2.0 10/24/18 12:00 73 10/24/18 12:00 97.9 71 20 129/63 (85) 100 10/24/18 08:00 Nasal Cannula 2.0 10/24/18 08:00 97.9 65 20 120/60 (80) 100 10/24/18 04:00 97.7 61 28 124/61 (82) 100 10/24/18 04:00 Nasal Cannula 2.0 10/24/18 04:00 95 10/24/18 00:00 Venturi Mask 10/24/18 00:00 60 10/24/18 00:00 97.9 66 20 120/60 (80) 100 10/23/18 20:00 98.1 67 20 123/60 (81) 100 10/23/18 20:00 60 10/23/18 20:00 Venturi Mask 10/23/18 18:55 69 20 Venturi Mask 14.0 55 10/23/18 18:55 Venturi Mask 14.0 55 10/23/18 18:55 100 Venturi Mask 14.0 55 Height (Feet): 5 Height (Inches): 4.00 Weight (Pounds): 140 General Appearance: WD/WN, no acute distress HEENT: normocephalic, atraumatic, anicteric, mucous membranes moist, PERRL Respiratory/Chest: chest wall non-tender, no respiratory distress, no accessory muscle use, decreased breath sounds, crackles/rales Cardiovascular: normal peripheral pulses, normal rate, regular rhythm, no gallop/murmur, no JVD Abdomen: normal bowel sounds, soft, non tender, no organomegaly, non distended , no mass, no scars Genitourinary: normal external genitalia Extremities: no cyanosis, no clubbing Skin: no rash, no lesions, ulcers Neurologic/Psychiatric: alert, unresponsiveness Lymphatic: no neck adenopathy, no groin adenopathy Musculoskeletal: normal muscle bulk, no effusion Laboratory Tests Test 10/24/18 04:00 White Blood Count 5.2 K/UL (4.8-10.8) Red Blood Count 3.13 M/UL (4.20-5.40) L Hemoglobin 9.4 G/DL (12.0-16.0) L Hematocrit 29.0 % (37.0-47.0) L Mean Corpuscular Volume 93 FL (80-99) Mean Corpuscular Hemoglobin 30.0 PG (27.0-31.0) Mean Corpuscular Hemoglobin Concent 32.4 G/DL (32.0-36.0) Red Cell Distribution Width 14.0 % (11.6-14.8) Platelet Count 423 K/UL (150-450) Mean Platelet Volume 5.6 FL (6.5-10.1) L Neutrophils (%) (Auto) 57.6 % (45.0-75.0) Lymphocytes (%) (Auto) 29.7 % (20.0-45.0) Monocytes (%) (Auto) 7.9 % (1.0-10.0) Eosinophils (%) (Auto) 3.6 % (0.0-3.0) H Basophils (%) (Auto) 1.3 % (0.0-2.0) Sodium Level 143 MMOL/L (136-145) Potassium Level 5.3 MMOL/L (3.5-5.1) H Chloride Level 109 MMOL/L (98-107) H Carbon Dioxide Level 31 MMOL/L (21-32) Anion Gap 3 mmol/L (5-15) L Blood Urea Nitrogen 23 mg/dL (7-18) H Creatinine 0.8 MG/DL (0.55-1.30) Estimat Glomerular Filtration Rate mL/min (>60) Glucose Level 109 MG/DL (74-106) H Calcium Level 9.3 MG/DL (8.5-10.1) Total Bilirubin 0.3 MG/DL (0.2-1.0) Aspartate Amino Transf (AST/SGOT) 25 U/L (15-37) Alanine Aminotransferase (ALT/SGPT) 30 U/L (12-78) Alkaline Phosphatase 88 U/L (46-116) Pro-B-Type Natriuretic Peptide 1657 pg/mL (0-125) H Total Protein 6.1 G/DL (6.4-8.2) L Albumin 1.8 G/DL (3.4-5.0) L Globulin 4.3 g/dL Albumin/Globulin Ratio 0.4 (1.0-2.7) L Current Medications Medications (Trade) Dose Ordered Sig/Christopher Route PRN Reason Start Time Stop Time Status Last Admin Dose Admin Acetaminophen (Tylenol) 650 mg Q4H PRN GT Mild Pain/Temp > 101 10/23/18 19:00 11/11/18 18:59 Chlorhexidine Gluconate (Tatiana-Hex 2%) 1 applic DAILY@2000 TOPIC 10/23/18 20:00 11/12/18 19:59 10/23/18 20:40 Dextrose (Dextrose 50%) 25 ml Q30M PRN IV Hypoglycemia 10/23/18 19:00 11/11/18 04:29 Haloperidol Lactate (Haldol) 5 mg Q6H PRN IM Agitation 10/23/18 19:30 11/13/18 13:29 Insulin Aspart (NovoLOG) EVERY 6 HOURS SUBQ 10/24/18 00:00 11/11/18 06:29 Meropenem 1 gm/ Sodium Chloride 55 ml @ 110 mls/hr Q12H IVPB 10/24/18 03:00 10/28/18 14:59 10/24/18 15:22 Pantoprazole (Protonix) 40 mg DAILY IVP 10/24/18 09:00 11/13/18 08:59 10/24/18 08:30 Penicillin G Potassium 4 mu/ Sodium Chloride 55 ml @ 110 mls/hr Q4H IVPB 10/23/18 20:00 11/02/18 19:59 10/24/18 16:24 Sitagliptin Phosphate (Januvia) 100 mg ACBREAKFAST GT 10/24/18 06:30 11/11/18 06:29 10/24/18 05:41 Porfirio Valentine M.D. Oct 24, 2018 18:09
--- NOTE | 2018-10-24 19:05 | NUR ---
NURSE NOTES: Bedside report received from BOUBACAR Cary. Nonverbal, spontaneous eye opening, unable to follow commands. 2L NC; sating at 100%. Glucerna 1.5 @ 35 GOAL, tolerating well. Roberts patent; for urinary retention. Skin is clean and dry, dressings intact. JOLEEN PICC; asymptomatic. No orders for LABS per AM nurse for K 5.3. Bed is locked in lowest position, call cates within reach, bed alarm on, side rails x3. Will continue to monitor and follow plan of care.
--- NOTE | 2018-10-24 19:15 | NUR ---
HAND-OFF: Report given to Soumya Hauser RN Pt stable no resp distress presented during the shift.
[2018-10-24 20:00] VITALS: BP 127/51
[2018-10-24] MEDS: Dyna-Hex 2% Top Sol 2oz TOPIC SCH (20:30)
--- NOTE | 2018-10-24 21:43 | General Progress Note ---
Assessment/Plan Problem List: (1) Toxic encephalopathy ICD Codes: G92 - Toxic encephalopathy SNOMED: 44926349 Assessment/Plan Haldol 5mg Im q6hr prn/agitation dw RN Subjective Allergies: Coded Allergies: No Known Allergies (Verified , 08/14/06) Subjective the pt is more manageable episodes of agitation Objective Last 24 Hour Vital Signs Date Time Temp Pulse Resp B/P (MAP) Pulse Ox O2 Delivery O2 Flow Rate FiO2 10/24/18 20:00 Nasal Cannula 2.0 10/24/18 20:00 97.9 59 20 127/51 (76) 99 10/24/18 16:09 Nasal Cannula 2.0 10/24/18 16:00 69 10/24/18 15:32 97.7 96 20 119/69 (86) 100 10/24/18 12:04 Nasal Cannula 2.0 10/24/18 12:00 73 10/24/18 12:00 97.9 71 20 129/63 (85) 100 10/24/18 08:00 Nasal Cannula 2.0 10/24/18 08:00 97.9 65 20 120/60 (80) 100 10/24/18 04:00 97.7 61 28 124/61 (82) 100 10/24/18 04:00 Nasal Cannula 2.0 10/24/18 04:00 95 10/24/18 00:00 Venturi Mask 10/24/18 00:00 60 10/24/18 00:00 97.9 66 20 120/60 (80) 100 Intake and Output 10/23/18 10/24/18 18:59 06:59 Intake Total 635 ml 730 ml Output Total 900 ml 600 ml Balance -265 ml 130 ml Intake Free Water 90 ml IV Total 215 ml 220 ml Tube Feeding 420 ml 420 ml Output Urine Total 900 ml 600 ml Laboratory Tests 10/24/18 04:00: White Blood Count 5.2, Red Blood Count 3.13L, Hemoglobin 9.4L, Hematocrit 29.0L , Mean Corpuscular Volume 93, Mean Corpuscular Hemoglobin 30.0, Mean Corpuscular Hemoglobin Concent 32.4, Red Cell Distribution Width 14.0, Platelet Count 423, Mean Platelet Volume 5.6L, Neutrophils (%) (Auto) 57.6, Lymphocytes ( %) (Auto) 29.7, Monocytes (%) (Auto) 7.9, Eosinophils (%) (Auto) 3.6H, Basophils (%) (Auto) 1.3, Sodium Level 143, Potassium Level 5.3H, Chloride Level 109H, Carbon Dioxide Level 31, Anion Gap 3L, Blood Urea Nitrogen 23H, Creatinine 0.8, Estimat Glomerular Filtration Rate , Glucose Level 109H, Calcium Level 9.3, Total Bilirubin 0.3, Aspartate Amino Transf (AST/SGOT) 25, Alanine Aminotransferase (ALT/SGPT) 30, Alkaline Phosphatase 88, Pro-B-Type Natriuretic Peptide 1657H, Total Protein 6.1L, Albumin 1.8L, Globulin 4.3, Albumin/Globulin Ratio 0.4L Height (Feet): 5 Height (Inches): 4.00 Weight (Pounds): 140 General Appearance: confused, agitated Trever Easley MD Oct 24, 2018 21:43
[2018-10-25] VITALS: BP 120/60
[2018-10-25] MEDS: Penicillin G Potassium 4 MU in NS 55 ML IVPB SCH ×6 (00:17→20:00)
[2018-10-25] MEDS: Meropenem 1 GM in NS 55 ML IVPB SCH ×2 (03:05→15:10)
[2018-10-25 04:00] VITALS: BP 132/58
[2018-10-25 05:12] LABS: ANION GAP 4 mmol/L (5-15); BLOOD UREA NITROGEN 23 mg/dL (7-18); CALCIUM 9.1 MG/DL (8.5-10.1); CARBON DIOXIDE 31 MMOL/L (21-32); CHLORIDE 107 MMOL/L (98-107); CREATININE 0.7 MG/DL (0.55-1.30); POTASSIUM 5.1 MMOL/L (3.5-5.1); SODIUM 142 MMOL/L (136-145)
[2018-10-25] MEDS: NovoLOG Insulin Flexpen SUBQ SCH ×4 (05:37→17:20)
[2018-10-25 05:57] LABS: BASOPHILS % (AUTO) 1.4 % (0.0-2.0); EOSINOPHILS % (AUTO) 4.2 % (0.0-3.0); HEMATOCRIT 31.3 % (37.0-47.0); LYMPHOCYTES % (AUTO) 30.5 % (20.0-45.0); MEAN CORPUSCULAR VOLUME 93 FL (80-99); MONOCYTES % (AUTO) 7.8 % (1.0-10.0); NEUTROPHILS % (AUTO) 56.2 % (45.0-75.0); PLATELET COUNT 429 K/UL (150-450); RED BLOOD COUNT 3.35 M/UL (4.20-5.40); RED CELL DISTRIBUTION WIDTH 13.1 % (11.6-14.8); WHITE BLOOD COUNT 5.3 K/UL (4.8-10.8)
--- NOTE | 2018-10-25 07:42 | NUR ---
HAND-OFF: Report given to BOUBACAR Cohen. Pt stable, No s/s of distress at this time.
--- NOTE | 2018-10-25 07:45 | NUR ---
NURSE NOTES: Report received from Soumya HAMLIN. Pt awake, nonverbal, responsive to touch and sound. Pt ST connected to diagnostic cardiac sonographer. Pt on 2L o2 via nasal cannula, respirations regular. GT feeding Glucerna 1.5 at 35 cc/hr. Roberts noted and intact. JOLEEN PICC with NS running at TKO. No acute distress at this time. Safety measures in place with bed locked and in lowest position, side rails up and bed alarm activated. Will continue to monitor and continue plan of care.
[2018-10-25 08:00] VITALS: BP 119/51
[2018-10-25] MEDS: Pantoprazole Inj IVP SCH (08:43)
[2018-10-25 12:00] VITALS: BP 131/68
--- NOTE | 2018-10-25 12:07 | Pulmonology Progress Note ---
Assessment/Plan Problems: (1) Acute respiratory failure (2) Healthcare-associated pneumonia (3) COPD (chronic obstructive pulmonary disease) (4) Hemiparesis affecting left side as late effect of cerebrovascular accident (5) Feeding by G-tube (6) HTN (hypertension) Assessment/Plan could go to med surg all reviewed improving tolerating extubation opening eyes all cultures reviewed lasix sprn dvt prophylaxis tolerating feeding check electrolytes titrate fio2 to sat of 92% Subjective ROS Limited/Unobtainable: Yes Constitutional: Reports: no symptoms Respiratory: Reports: no symptoms Allergies: Coded Allergies: No Known Allergies (Verified , 08/14/06) Objective Last 24 Hour Vital Signs Date Time Temp Pulse Resp B/P (MAP) Pulse Ox O2 Delivery O2 Flow Rate FiO2 10/25/18 08:00 64 10/25/18 08:00 Nasal Cannula 2.0 10/25/18 08:00 97.7 65 20 119/51 (73) 100 10/25/18 04:00 63 10/25/18 04:00 Nasal Cannula 2.0 10/25/18 04:00 97.9 62 24 132/58 (82) 100 10/25/18 00:00 89 10/25/18 00:00 Nasal Cannula 2.0 10/25/18 00:00 98.1 64 28 120/60 (80) 100 10/24/18 20:00 Nasal Cannula 2.0 10/24/18 20:00 97.9 59 20 127/51 (76) 99 10/24/18 20:00 55 10/24/18 16:09 Nasal Cannula 2.0 10/24/18 16:00 69 10/24/18 15:32 97.7 96 20 119/69 (86) 100 Intake and Output 10/24/18 10/25/18 19:00 07:00 Intake Total 655 ml 640 ml Output Total 700 ml 500 ml Balance -45 ml 140 ml Intake Free Water 200 ml 90 ml IV Total 165 ml Tube Feeding 455 ml 385 ml Output Urine Total 700 ml 500 ml # Bowel Movements 2 General Appearance: WD/WN HEENT: normocephalic Respiratory/Chest: chest wall non-tender, lungs clear Breasts: no masses Cardiovascular: normal rate, regular rhythm Abdomen: no scars Extremities: no cyanosis Skin: no rash Laboratory Tests 10/25/18 03:20: White Blood Count 5.3, Red Blood Count 3.35L, Hemoglobin 10.0L, Hematocrit 31.3L , Mean Corpuscular Volume 93, Mean Corpuscular Hemoglobin 29.8, Mean Corpuscular Hemoglobin Concent 31.9L, Red Cell Distribution Width 13.1, Platelet Count 429, Mean Platelet Volume 5.4L, Neutrophils (%) (Auto) 56.2, Lymphocytes (%) (Auto) 30.5, Monocytes (%) (Auto) 7.8, Eosinophils (%) (Auto) 4.2H, Basophils (%) (Auto) 1.4, Sodium Level 142, Potassium Level 5.1, Chloride Level 107, Carbon Dioxide Level 31, Anion Gap 4L, Blood Urea Nitrogen 23H, Creatinine 0.7, Estimat Glomerular Filtration Rate , Glucose Level 110H, Calcium Level 9.1 Current Medications Medications (Trade) Dose Ordered Sig/Christopher Route PRN Reason Start Time Stop Time Status Last Admin Dose Admin Acetaminophen (Tylenol) 650 mg Q4H PRN GT Mild Pain/Temp > 101 10/23/18 19:00 11/11/18 18:59 Chlorhexidine Gluconate (Tatiana-Hex 2%) 1 applic DAILY@2000 TOPIC 10/23/18 20:00 11/12/18 19:59 10/24/18 20:30 Dextrose (Dextrose 50%) 25 ml Q30M PRN IV Hypoglycemia 10/23/18 19:00 11/11/18 04:29 Haloperidol Lactate (Haldol) 5 mg Q6H PRN IM Agitation 10/23/18 19:30 11/13/18 13:29 Insulin Aspart (NovoLOG) EVERY 6 HOURS SUBQ 10/24/18 00:00 11/11/18 06:29 Meropenem 1 gm/ Sodium Chloride 55 ml @ 110 mls/hr Q12H IVPB 10/24/18 03:00 10/28/18 14:59 10/25/18 03:05 Pantoprazole (Protonix) 40 mg DAILY IVP 10/24/18 09:00 11/13/18 08:59 10/25/18 08:43 Penicillin G Potassium 4 mu/ Sodium Chloride 55 ml @ 110 mls/hr Q4H IVPB 10/23/18 20:00 11/02/18 19:59 10/25/18 08:43 Sitagliptin Phosphate (Januvia) 100 mg ACBREAKFAST GT 10/24/18 06:30 11/11/18 06:29 10/25/18 05:37 Barbara Sky MD Oct 25, 2018 12:07
--- NOTE | 2018-10-25 15:17 | NUR ---
NURSE NOTES: Family here to visit with pt. Family wants pt to be discharged home tomorrow. Family given dr phone number because they had a lot of questions to ask. No acute distress. Will continue to monitor.
[2018-10-25 16:00] VITALS: BP 128/65
--- NOTE | 2018-10-25 16:18 | Infectious Diseases Prog Note ---
Assessment/Plan Problems: (1) Aspiration pneumonia Assessment & Plan: due to pseudomonas aeruginosa and proteus mirabilis , continue meropenem for two weeks , aspiration precaution with aggressive suctioning , keep HOB > 30 degree .monitor CXR. EOT 10/28/18 (2) Sepsis Assessment & Plan: with strep viridans and lactobacillus spp suspect GI source most likely malignancy , continue penicillin G for two weeks starting from the clearance date . recommend colonoscopy in the future to rule colon CA . repeated blood culture is negative so far which confirm clearance. 11/02/18 (3) Acute respiratory failure Assessment & Plan: due to the above , improving, extubated on ventimask , monitor CXR and ABG. pulmonary is following (4) Diabetes mellitus type II, uncontrolled Assessment & Plan: recommend tight glycemic control to keep blood glucose between 100-140 (5) JEFFY (acute kidney injury) Assessment & Plan: improved, due to hypotension and sepsis, continue hydration , monitor renal function, and UOP Subjective Constitutional: Reports: no symptoms HEENT: Reports: no symptoms Respiratory: Reports: dry cough Breasts: Reports: no symptoms Cardiovascular: Reports: no symptoms Gastrointestinal/Abdominal: Reports: no symptoms Genitourinary: Reports: no symptoms Neurologic: Reports: weakness Psychiatric: Reports: no symptoms Skin: Reports: ulcer Endocrine: Reports: no symptoms Hematologic: Reports: no symptoms Musculoskeletal: Reports: no symptoms Allergies: Coded Allergies: No Known Allergies (Verified , 08/14/06) Subjective she was more awake, on high flow oxygen in [place] , no fever. no diarrhea , no vomiting Objective Vital Signs Last 24 Hour Vital Signs Date Time Temp Pulse Resp B/P (MAP) Pulse Ox O2 Delivery O2 Flow Rate FiO2 10/25/18 12:00 Nasal Cannula 2.0 10/25/18 12:00 98.2 22 131/68 (89) 100 10/25/18 12:00 61 10/25/18 08:00 64 10/25/18 08:00 Nasal Cannula 2.0 10/25/18 08:00 97.7 65 20 119/51 (73) 100 10/25/18 04:00 63 10/25/18 04:00 Nasal Cannula 2.0 10/25/18 04:00 97.9 62 24 132/58 (82) 100 10/25/18 00:00 89 10/25/18 00:00 Nasal Cannula 2.0 10/25/18 00:00 98.1 64 28 120/60 (80) 100 10/24/18 20:00 Nasal Cannula 2.0 10/24/18 20:00 97.9 59 20 127/51 (76) 99 10/24/18 20:00 55 Height (Feet): 5 Height (Inches): 4.00 Weight (Pounds): 128 General Appearance: WD/WN, no acute distress HEENT: normocephalic, atraumatic, anicteric, mucous membranes moist, PERRL, EOMI, pharynx normal, supple, no JVD Respiratory/Chest: chest wall non-tender, no respiratory distress, no accessory muscle use, decreased breath sounds Cardiovascular: normal peripheral pulses, normal rate, regular rhythm, no gallop/murmur, no JVD Abdomen: normal bowel sounds, soft, non tender, no organomegaly, non distended , no mass, no scars Extremities: no cyanosis, no clubbing Skin: no rash, no lesions, ulcers Neurologic/Psychiatric: alert, responsive Lymphatic: no neck adenopathy, no groin adenopathy Musculoskeletal: normal muscle bulk, no effusion Laboratory Tests Test 10/25/18 03:20 White Blood Count 5.3 K/UL (4.8-10.8) Red Blood Count 3.35 M/UL (4.20-5.40) L Hemoglobin 10.0 G/DL (12.0-16.0) L Hematocrit 31.3 % (37.0-47.0) L Mean Corpuscular Volume 93 FL (80-99) Mean Corpuscular Hemoglobin 29.8 PG (27.0-31.0) Mean Corpuscular Hemoglobin Concent 31.9 G/DL (32.0-36.0) L Red Cell Distribution Width 13.1 % (11.6-14.8) Platelet Count 429 K/UL (150-450) Mean Platelet Volume 5.4 FL (6.5-10.1) L Neutrophils (%) (Auto) 56.2 % (45.0-75.0) Lymphocytes (%) (Auto) 30.5 % (20.0-45.0) Monocytes (%) (Auto) 7.8 % (1.0-10.0) Eosinophils (%) (Auto) 4.2 % (0.0-3.0) H Basophils (%) (Auto) 1.4 % (0.0-2.0) Sodium Level 142 MMOL/L (136-145) Potassium Level 5.1 MMOL/L (3.5-5.1) Chloride Level 107 MMOL/L (98-107) Carbon Dioxide Level 31 MMOL/L (21-32) Anion Gap 4 mmol/L (5-15) L Blood Urea Nitrogen 23 mg/dL (7-18) H Creatinine 0.7 MG/DL (0.55-1.30) Estimat Glomerular Filtration Rate mL/min (>60) Glucose Level 110 MG/DL (74-106) H Calcium Level 9.1 MG/DL (8.5-10.1) Current Medications Medications (Trade) Dose Ordered Sig/Christopher Route PRN Reason Start Time Stop Time Status Last Admin Dose Admin Acetaminophen (Tylenol) 650 mg Q4H PRN GT Mild Pain/Temp > 101 10/23/18 19:00 11/11/18 18:59 Chlorhexidine Gluconate (Tatiana-Hex 2%) 1 applic DAILY@2000 TOPIC 10/23/18 20:00 11/12/18 19:59 10/24/18 20:30 Dextrose (Dextrose 50%) 25 ml Q30M PRN IV Hypoglycemia 10/23/18 19:00 11/11/18 04:29 Haloperidol Lactate (Haldol) 5 mg Q6H PRN IM Agitation 10/23/18 19:30 11/13/18 13:29 Insulin Aspart (NovoLOG) EVERY 6 HOURS SUBQ 10/24/18 00:00 11/11/18 06:29 10/25/18 12:07 Meropenem 1 gm/ Sodium Chloride 55 ml @ 110 mls/hr Q12H IVPB 10/24/18 03:00 10/28/18 14:59 10/25/18 15:10 Pantoprazole (Protonix) 40 mg DAILY IVP 10/24/18 09:00 11/13/18 08:59 10/25/18 08:43 Penicillin G Potassium 4 mu/ Sodium Chloride 55 ml @ 110 mls/hr Q4H IVPB 10/23/18 20:00 11/02/18 19:59 10/25/18 16:01 Sitagliptin Phosphate (Januvia) 100 mg ACBREAKFAST GT 10/24/18 06:30 11/11/18 06:29 10/25/18 05:37 Porfirio Valentine M.D. Oct 25, 2018 16:18
[2018-10-25] MEDS ORDERED: Acetaminophen 650mg/20.3ml GT PRN (16:30)
[2018-10-25] MEDS ORDERED: Haloperidol 5mg/ml Inj IM PRN (16:30)
--- NOTE | 2018-10-25 16:47 | NUR ---
HAND-OFF: Report given to Olena HAMLIN ([id number]).
--- NOTE | 2018-10-25 16:48 | NUR ---
NURSE NOTES: Received pt from [facility] with stable condition (mae Cohen). pt denies any pain at this time. breathing regular and unlabored. GT running and tolerating well. Bed in lowest position. Call light within reach at all time. will continue to monitor
[2018-10-25] MEDS ORDERED: NS 275ml ONE (17:06)
--- NOTE | 2018-10-25 18:35 | Internal Med Progress Note ---
Subjective Date of Service: Oct 25, 2018 Physician Name Dimitrios Daly Attending Physician Tereso Toro MD Current Medications Medications (Trade) Dose Ordered Sig/Christopher Route PRN Reason Start Time Stop Time Status Last Admin Dose Admin Acetaminophen (Tylenol) 650 mg Q4H PRN GT Mild Pain/Temp > 101 10/25/18 16:30 11/11/18 16:29 Chlorhexidine Gluconate (Tatiana-Hex 2%) 1 applic DAILY@2000 TOPIC 10/25/18 20:00 11/12/18 19:59 Dextrose (Dextrose 50%) 25 ml Q30M PRN IV Hypoglycemia 10/25/18 16:30 11/11/18 04:29 Dextrose (Dextrose 50%) 50 ml Q30M PRN IV Hypoglycemia 10/25/18 16:30 11/24/18 16:29 Haloperidol Lactate (Haldol) 5 mg Q6H PRN IM Agitation 10/25/18 16:30 11/13/18 16:29 Insulin Aspart (NovoLOG) EVERY 6 HOURS SUBQ 10/25/18 18:00 11/11/18 06:29 10/25/18 17:20 Meropenem 1 gm/ Sodium Chloride 55 ml @ 110 mls/hr Q12H IVPB 10/26/18 03:00 10/28/18 14:59 Pantoprazole (Protonix) 40 mg DAILY IVP 10/26/18 09:00 11/13/18 08:59 Penicillin G Potassium 4 mu/ Sodium Chloride 55 ml @ 110 mls/hr Q4H IVPB 10/25/18 20:00 11/02/18 19:59 Sitagliptin Phosphate (Januvia) 100 mg ACBREAKFAST GT 10/26/18 06:30 11/11/18 06:29 Allergies: Coded Allergies: No Known Allergies (Verified , 08/14/06) ROS Limited/Unobtainable: Yes Subjective 78 YO F admitted with pneumonia. Now sepsis and hypotension. Extubated . Cover for Int Med-Dr Toro. Tolerating nasal canula Objective Last Vital Signs Date Time Temp Pulse Resp B/P (MAP) Pulse Ox O2 Delivery O2 Flow Rate FiO2 10/25/18 16:00 Nasal Cannula 2.0 10/25/18 16:00 98.1 69 18 128/65 (86) 100 10/23/18 18:55 55 Laboratory Tests Test 10/25/18 03:20 White Blood Count 5.3 K/UL (4.8-10.8) Red Blood Count 3.35 M/UL (4.20-5.40) L Hemoglobin 10.0 G/DL (12.0-16.0) L Hematocrit 31.3 % (37.0-47.0) L Mean Corpuscular Volume 93 FL (80-99) Mean Corpuscular Hemoglobin 29.8 PG (27.0-31.0) Mean Corpuscular Hemoglobin Concent 31.9 G/DL (32.0-36.0) L Red Cell Distribution Width 13.1 % (11.6-14.8) Platelet Count 429 K/UL (150-450) Mean Platelet Volume 5.4 FL (6.5-10.1) L Neutrophils (%) (Auto) 56.2 % (45.0-75.0) Lymphocytes (%) (Auto) 30.5 % (20.0-45.0) Monocytes (%) (Auto) 7.8 % (1.0-10.0) Eosinophils (%) (Auto) 4.2 % (0.0-3.0) H Basophils (%) (Auto) 1.4 % (0.0-2.0) Sodium Level 142 MMOL/L (136-145) Potassium Level 5.1 MMOL/L (3.5-5.1) Chloride Level 107 MMOL/L (98-107) Carbon Dioxide Level 31 MMOL/L (21-32) Anion Gap 4 mmol/L (5-15) L Blood Urea Nitrogen 23 mg/dL (7-18) H Creatinine 0.7 MG/DL (0.55-1.30) Estimat Glomerular Filtration Rate mL/min (>60) Glucose Level 110 MG/DL (74-106) H Calcium Level 9.1 MG/DL (8.5-10.1) Intake and Output 10/24/18 10/25/18 19:00 07:00 Intake Total 655 ml 640 ml Output Total 700 ml 500 ml Balance -45 ml 140 ml Intake Free Water 200 ml 90 ml IV Total 165 ml Tube Feeding 455 ml 385 ml Output Urine Total 700 ml 500 ml # Bowel Movements 2 Objective General Appearance: WD/WN, moderate distress, lethargic EENT: PERRL/EOMI, normal ENT inspection Neck: non-tender, normal alignment, supple Cardiovascular: normal peripheral pulses, normal rate, regular rhythm, no gallop/murmur, no JVD Respiratory/Chest: Nasal canula; respiratory distress, crackles/rales, rhonchi - bilaterally, expiratory wheezing Abdomen: normal bowel sounds, non tender, soft, no organomegaly, no mass 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 (4) Sepsis Assessment & Plan: strep viridans and lactobacillus. Cont meropenem and penicillin G per ID (5) Diabetes mellitus type II, uncontrolled (6) HTN (hypertension) (7) Hemiparesis affecting left side as late effect of cerebrovascular accident (8) Healthcare-associated pneumonia Assessment & Plan: Continue penicillin G and Meropenem per ID (9) Hypotension Assessment & Plan: due to sepsis (10) Sepsis (11) Diarrhea Assessment & Plan: C. Diff neg. (12) Elevated troponin Assessment & Plan: See cardiology note. (13) CHF (congestive heart failure) Assessment/Plan Discussed with Emily rios via telephone. Dimitrios Daly MD Oct 25, 2018 18:35
--- NOTE | 2018-10-25 19:22 | NUR ---
HAND-OFF: Report given to BOUBACAR Gama.
--- NOTE | 2018-10-25 19:30 | NUR ---
NURSE NOTES: Received patient in bed, asleep, in no acute distress at this time, [place] speaking patient. Patient is on G tube tolerating well, bed is locked, alarm is on and bed is locked. Call light is within reach, will continue to monitor for safety and comfort.
[2018-10-25] MEDS: Dyna-Hex 2% Top Sol 2oz TOPIC SCH (20:00)
[2018-10-25 20:57] VITALS: BP 113/64
[2018-10-26] MEDS: Penicillin G Potassium 4 MU in NS 55 ML IVPB SCH ×6 (00:01→20:01)
[2018-10-26 00:15] VITALS: BP 137/52
[2018-10-26] MEDS: Meropenem 1 GM in NS 55 ML IVPB SCH ×2 (03:27→14:17)
[2018-10-26 04:46] VITALS: BP 135/57
[2018-10-26 05:56] LABS: BASOPHILS % (AUTO) 1.2 % (0.0-2.0); EOSINOPHILS % (AUTO) 6.3 % (0.0-3.0); HEMATOCRIT 29.8 % (37.0-47.0); HEMOGLOBIN 9.8 G/DL (12.0-16.0); LYMPHOCYTES % (AUTO) 34.8 % (20.0-45.0); MEAN CORPUSCULAR VOLUME 92 FL (80-99); MONOCYTES % (AUTO) 9.1 % (1.0-10.0); NEUTROPHILS % (AUTO) 48.6 % (45.0-75.0); PLATELET COUNT 399 K/UL (150-450); RED BLOOD COUNT 3.23 M/UL (4.20-5.40); RED CELL DISTRIBUTION WIDTH 13.8 % (11.6-14.8); WHITE BLOOD COUNT 4.5 K/UL (4.8-10.8)
[2018-10-26] MEDS: NovoLOG Insulin Flexpen SUBQ SCH ×4 (06:08→17:01)
[2018-10-26 06:28] LABS: ALANINE AMINOTRANSFERASE 27 U/L (12-78); ALBUMIN 1.9 G/DL (3.4-5.0); ALBUMIN/GLOBULIN RATIO 0.4 (1.0-2.7); ALKALINE PHOSPHATASE 82 U/L (46-116); ANION GAP 3 mmol/L (5-15); ASPARTATE AMINO TRANSFERASE 24 U/L (15-37); BILIRUBIN,TOTAL 0.3 MG/DL (0.2-1.0); BLOOD UREA NITROGEN 24 mg/dL (7-18); CALCIUM 9.2 MG/DL (8.5-10.1); CARBON DIOXIDE 32 MMOL/L (21-32); CHLORIDE 105 MMOL/L (98-107); CREATININE 0.9 MG/DL (0.55-1.30); POTASSIUM 5.5 MMOL/L (3.5-5.1); SODIUM 140 MMOL/L (136-145)
--- NOTE | 2018-10-26 07:24 | NUR ---
HAND-OFF: Report given to Thao HAMLIN.
--- NOTE | 2018-10-26 07:25 | NUR ---
NURSE NOTES: Received patient in bed, asleep, no sign of distress at this time, Trin[place] speaking patient. PICC line right upper arm patent and infusing well, on G tube tolerating well, bed is locked, alarm is on and bed is locked. Call light is within reach, will continue to monitor for safety and comfort. mae jade
[2018-10-26 08:00] VITALS: BP 133/58
[2018-10-26] MEDS ORDERED: Pantoprazole Inj IVP SCH (09:00)
--- NOTE | 2018-10-26 11:23 | Diagnostic Imaging Report ---
Indication: Dyspnea Comparison: 10/24/2018 A single view chest radiograph was obtained. Findings: Interstitial opacities likely edema noted within the lungs although improved since the last examination. There are bilateral pleural effusion suspected. Consolidation also noted at both lung bases versus atelectasis. Heart size is also normalized but is still borderline enlarged. PICC line is present in good position unchanged. IMPRESSION: Mild interstitial edema improved over the last 2 days. Basilar consolidation versus atelectasis. Bilateral pleural effusions.
[2018-10-26 12:15] VITALS: BP 132/62
--- NOTE | 2018-10-26 14:23 | General Progress Note ---
Assessment/Plan Problem List: (1) Toxic encephalopathy ICD Codes: G92 - Toxic encephalopathy SNOMED: 21728121 Status: unchanged Assessment/Plan Haldol 5mg Im q6hr prn/agitation dw RN Subjective Allergies: Coded Allergies: No Known Allergies (Verified , 08/14/06) Subjective the pt is lethargic the pt has waxing and waning of consciousness. The pt is unable to answer the questions. Objective Last 24 Hour Vital Signs Date Time Temp Pulse Resp B/P (MAP) Pulse Ox O2 Delivery O2 Flow Rate FiO2 10/26/18 12:15 98.0 72 18 132/62 (85) 100 10/26/18 12:14 Nasal Cannula 2.0 10/26/18 08:00 Nasal Cannula 2.0 10/26/18 08:00 97.9 67 18 133/58 (83) 97 10/26/18 04:46 97.2 65 18 135/57 (83) 97 10/26/18 03:41 Nasal Cannula 2.0 10/26/18 00:15 97.3 64 18 137/52 (80) 100 64 10/25/18 23:53 Nasal Cannula 2.0 10/25/18 21:38 Nasal Cannula 2.0 10/25/18 20:57 98.0 65 18 113/64 (80) 65 10/25/18 20:00 Nasal Cannula 2.0 10/25/18 16:00 Nasal Cannula 2.0 10/25/18 16:00 98.1 69 18 128/65 (86) 100 Intake and Output 10/25/18 10/26/18 19:00 07:00 Intake Total 440 ml Balance 440 ml Intake Free Water 90 ml Tube Feeding 350 ml # Bowel Movements 1 Laboratory Tests 10/26/18 05:00: White Blood Count 4.5L, Red Blood Count 3.23L, Hemoglobin 9.8L, Hematocrit 29.8L , Mean Corpuscular Volume 92, Mean Corpuscular Hemoglobin 30.3, Mean Corpuscular Hemoglobin Concent 32.9, Red Cell Distribution Width 13.8, Platelet Count 399, Mean Platelet Volume 5.6L, Neutrophils (%) (Auto) 48.6, Lymphocytes ( %) (Auto) 34.8, Monocytes (%) (Auto) 9.1, Eosinophils (%) (Auto) 6.3H, Basophils (%) (Auto) 1.2, Sodium Level 140, Potassium Level 5.5H, Chloride Level 105, Carbon Dioxide Level 32, Anion Gap 3L, Blood Urea Nitrogen 24H, Creatinine 0.9, Estimat Glomerular Filtration Rate , Glucose Level 117H, Calcium Level 9.2, Total Bilirubin 0.3, Aspartate Amino Transf (AST/SGOT) 24, Alanine Aminotransferase (ALT/SGPT) 27, Alkaline Phosphatase 82, Pro-B-Type Natriuretic Peptide 1495H, Total Protein 6.3L, Albumin 1.9L, Globulin 4.4, Albumin/Globulin Ratio 0.4L Height (Feet): 5 Height (Inches): 4.00 Weight (Pounds): 128 General Appearance: lethargic, confused, agitated - at times Trever Easley MD Oct 26, 2018 14:23
--- NOTE | 2018-10-26 14:28 | Pulmonology Progress Note ---
Assessment/Plan Problems: (1) Acute respiratory failure (2) Healthcare-associated pneumonia (3) COPD (chronic obstructive pulmonary disease) (4) Hemiparesis affecting left side as late effect of cerebrovascular accident (5) Feeding by G-tube (6) HTN (hypertension) Assessment/Plan dc planning all reviewed improving tolerating extubation opening eyes all cultures reviewed lasix sprn dvt prophylaxis tolerating feeding check electrolytes titrate fio2 to sat of 92% Subjective ROS Limited/Unobtainable: No Constitutional: Reports: no symptoms HEENT: Repors: no symptoms Allergies: Coded Allergies: No Known Allergies (Verified , 08/14/06) Objective Last 24 Hour Vital Signs Date Time Temp Pulse Resp B/P (MAP) Pulse Ox O2 Delivery O2 Flow Rate FiO2 10/26/18 12:15 98.0 72 18 132/62 (85) 100 10/26/18 12:14 Nasal Cannula 2.0 10/26/18 08:00 Nasal Cannula 2.0 10/26/18 08:00 97.9 67 18 133/58 (83) 97 10/26/18 04:46 97.2 65 18 135/57 (83) 97 10/26/18 03:41 Nasal Cannula 2.0 10/26/18 00:15 97.3 64 18 137/52 (80) 100 64 10/25/18 23:53 Nasal Cannula 2.0 10/25/18 21:38 Nasal Cannula 2.0 10/25/18 20:57 98.0 65 18 113/64 (80) 65 10/25/18 20:00 Nasal Cannula 2.0 10/25/18 16:00 Nasal Cannula 2.0 10/25/18 16:00 98.1 69 18 128/65 (86) 100 Intake and Output 10/25/18 10/26/18 19:00 07:00 Intake Total 440 ml Balance 440 ml Intake Free Water 90 ml Tube Feeding 350 ml # Bowel Movements 1 General Appearance: WD/WN HEENT: normocephalic, atraumatic Respiratory/Chest: chest wall non-tender, lungs clear Breasts: no masses Cardiovascular: normal rate Abdomen: normal bowel sounds, no organomegaly Extremities: no cyanosis Skin: no rash Laboratory Tests 10/26/18 05:00: White Blood Count 4.5L, Red Blood Count 3.23L, Hemoglobin 9.8L, Hematocrit 29.8L , Mean Corpuscular Volume 92, Mean Corpuscular Hemoglobin 30.3, Mean Corpuscular Hemoglobin Concent 32.9, Red Cell Distribution Width 13.8, Platelet Count 399, Mean Platelet Volume 5.6L, Neutrophils (%) (Auto) 48.6, Lymphocytes ( %) (Auto) 34.8, Monocytes (%) (Auto) 9.1, Eosinophils (%) (Auto) 6.3H, Basophils (%) (Auto) 1.2, Sodium Level 140, Potassium Level 5.5H, Chloride Level 105, Carbon Dioxide Level 32, Anion Gap 3L, Blood Urea Nitrogen 24H, Creatinine 0.9, Estimat Glomerular Filtration Rate , Glucose Level 117H, Calcium Level 9.2, Total Bilirubin 0.3, Aspartate Amino Transf (AST/SGOT) 24, Alanine Aminotransferase (ALT/SGPT) 27, Alkaline Phosphatase 82, Pro-B-Type Natriuretic Peptide 1495H, Total Protein 6.3L, Albumin 1.9L, Globulin 4.4, Albumin/Globulin Ratio 0.4L Current Medications Medications (Trade) Dose Ordered Sig/Christopher Route PRN Reason Start Time Stop Time Status Last Admin Dose Admin Acetaminophen (Tylenol) 650 mg Q4H PRN GT Mild Pain/Temp > 101 10/25/18 16:30 11/11/18 16:29 Chlorhexidine Gluconate (Tatiana-Hex 2%) 1 applic DAILY@2000 TOPIC 10/25/18 20:00 11/12/18 19:59 10/25/18 20:00 Dextrose (Dextrose 50%) 25 ml Q30M PRN IV Hypoglycemia 10/25/18 16:30 11/11/18 04:29 Dextrose (Dextrose 50%) 50 ml Q30M PRN IV Hypoglycemia 10/25/18 16:30 11/24/18 16:29 Haloperidol Lactate (Haldol) 5 mg Q6H PRN IM Agitation 10/25/18 16:30 11/13/18 16:29 Haloperidol Lactate (Haldol) 5 mg Q6H PRN IM Agitation 10/26/18 14:30 11/25/18 14:29 UNV Insulin Aspart (NovoLOG) EVERY 6 HOURS SUBQ 10/25/18 18:00 11/11/18 06:29 10/26/18 11:28 Meropenem 1 gm/ Sodium Chloride 55 ml @ 110 mls/hr Q12H IVPB 10/26/18 03:00 10/28/18 14:59 10/26/18 14:17 Pantoprazole (Protonix) 40 mg DAILY IVP 10/26/18 09:00 11/13/18 08:59 10/26/18 08:07 Penicillin G Potassium 4 mu/ Sodium Chloride 55 ml @ 110 mls/hr Q4H IVPB 10/25/18 20:00 11/02/18 19:59 10/26/18 12:22 Sitagliptin Phosphate (Januvia) 100 mg ACBREAKFAST GT 10/26/18 06:30 11/11/18 06:29 10/26/18 06:11 Barbara Sky MD Oct 26, 2018 14:28
[2018-10-26] MEDS ORDERED: Haloperidol 5mg/ml Inj IM PRN (14:30)
[2018-10-26 15:48] VITALS: BP 136/65
--- NOTE | 2018-10-26 15:48 | Infectious Diseases Prog Note ---
Assessment/Plan Problems: (1) Aspiration pneumonia Assessment & Plan: due to pseudomonas aeruginosa and proteus mirabilis , continue meropenem for two weeks total with aspiration precaution , keep HOB > 30 degree .monitor CXR. EOT 10/28/18 (2) Sepsis Assessment & Plan: with strep viridans and lactobacillus spp suspect GI source most likely malignancy , continue penicillin G for two weeks starting from the clearance date . recommend colonoscopy in the future to rule colon CA . repeated blood culture is negative so far which confirm clearance. 11/02/18 (3) Acute respiratory failure Assessment & Plan: due to the above , improving, extubated on ventimask , monitor CXR and ABG. pulmonary is following (4) Diabetes mellitus type II, uncontrolled Assessment & Plan: recommend tight glycemic control to keep blood glucose between 100-140 (5) JEFFY (acute kidney injury) Assessment & Plan: improved, due to hypotension and sepsis, continue hydration , monitor renal function, and UOP Subjective Constitutional: Reports: no symptoms HEENT: Reports: no symptoms Respiratory: Reports: no symptoms Breasts: Reports: no symptoms Cardiovascular: Reports: no symptoms Gastrointestinal/Abdominal: Reports: no symptoms Genitourinary: Reports: no symptoms Neurologic: Reports: no symptoms Psychiatric: Reports: no symptoms Skin: Reports: no symptoms Endocrine: Reports: no symptoms Hematologic: Reports: no symptoms Musculoskeletal: Reports: no symptoms Allergies: Coded Allergies: No Known Allergies (Verified , 08/14/06) Subjective she was more awake, on high flow oxygen in [place] , no fever. no diarrhea , no vomiting Objective Vital Signs Last 24 Hour Vital Signs Date Time Temp Pulse Resp B/P (MAP) Pulse Ox O2 Delivery O2 Flow Rate FiO2 10/26/18 12:15 98.0 72 18 132/62 (85) 100 10/26/18 12:14 Nasal Cannula 2.0 10/26/18 08:00 Nasal Cannula 2.0 10/26/18 08:00 97.9 67 18 133/58 (83) 97 10/26/18 04:46 97.2 65 18 135/57 (83) 97 10/26/18 03:41 Nasal Cannula 2.0 10/26/18 00:15 97.3 64 18 137/52 (80) 100 64 10/25/18 23:53 Nasal Cannula 2.0 10/25/18 21:38 Nasal Cannula 2.0 10/25/18 20:57 98.0 65 18 113/64 (80) 65 10/25/18 20:00 Nasal Cannula 2.0 10/25/18 16:00 Nasal Cannula 2.0 10/25/18 16:00 98.1 69 18 128/65 (86) 100 Height (Feet): 5 Height (Inches): 4.00 Weight (Pounds): 128 General Appearance: WD/WN, no acute distress HEENT: normocephalic, atraumatic, anicteric, mucous membranes moist, PERRL, supple, no JVD, other Respiratory/Chest: chest wall non-tender, lungs clear, normal breath sounds, no respiratory distress, no accessory muscle use Cardiovascular: normal peripheral pulses, normal rate, regular rhythm, no gallop/murmur, no JVD Abdomen: normal bowel sounds, soft, non tender, no organomegaly, non distended , no mass, no scars Extremities: no cyanosis, no clubbing Skin: no rash, no lesions, ulcers Neurologic/Psychiatric: alert, responsive Lymphatic: no neck adenopathy, no groin adenopathy Musculoskeletal: normal muscle bulk, no effusion Laboratory Tests Test 10/26/18 05:00 White Blood Count 4.5 K/UL (4.8-10.8) L Red Blood Count 3.23 M/UL (4.20-5.40) L Hemoglobin 9.8 G/DL (12.0-16.0) L Hematocrit 29.8 % (37.0-47.0) L Mean Corpuscular Volume 92 FL (80-99) Mean Corpuscular Hemoglobin 30.3 PG (27.0-31.0) Mean Corpuscular Hemoglobin Concent 32.9 G/DL (32.0-36.0) Red Cell Distribution Width 13.8 % (11.6-14.8) Platelet Count 399 K/UL (150-450) Mean Platelet Volume 5.6 FL (6.5-10.1) L Neutrophils (%) (Auto) 48.6 % (45.0-75.0) Lymphocytes (%) (Auto) 34.8 % (20.0-45.0) Monocytes (%) (Auto) 9.1 % (1.0-10.0) Eosinophils (%) (Auto) 6.3 % (0.0-3.0) H Basophils (%) (Auto) 1.2 % (0.0-2.0) Sodium Level 140 MMOL/L (136-145) Potassium Level 5.5 MMOL/L (3.5-5.1) H Chloride Level 105 MMOL/L (98-107) Carbon Dioxide Level 32 MMOL/L (21-32) Anion Gap 3 mmol/L (5-15) L Blood Urea Nitrogen 24 mg/dL (7-18) H Creatinine 0.9 MG/DL (0.55-1.30) Estimat Glomerular Filtration Rate mL/min (>60) Glucose Level 117 MG/DL (74-106) H Calcium Level 9.2 MG/DL (8.5-10.1) Total Bilirubin 0.3 MG/DL (0.2-1.0) Aspartate Amino Transf (AST/SGOT) 24 U/L (15-37) Alanine Aminotransferase (ALT/SGPT) 27 U/L (12-78) Alkaline Phosphatase 82 U/L (46-116) Pro-B-Type Natriuretic Peptide 1495 pg/mL (0-125) H Total Protein 6.3 G/DL (6.4-8.2) L Albumin 1.9 G/DL (3.4-5.0) L Globulin 4.4 g/dL Albumin/Globulin Ratio 0.4 (1.0-2.7) L Current Medications Medications (Trade) Dose Ordered Sig/Christopher Route PRN Reason Start Time Stop Time Status Last Admin Dose Admin Acetaminophen (Tylenol) 650 mg Q4H PRN GT Mild Pain/Temp > 101 10/25/18 16:30 11/11/18 16:29 Chlorhexidine Gluconate (Tatiana-Hex 2%) 1 applic DAILY@1999 TOPIC 10/25/18 20:00 11/12/18 19:59 10/25/18 20:00 Dextrose (Dextrose 50%) 25 ml Q30M PRN IV Hypoglycemia 10/25/18 16:30 11/11/18 04:29 Dextrose (Dextrose 50%) 50 ml Q30M PRN IV Hypoglycemia 10/25/18 16:30 11/24/18 16:29 Haloperidol Lactate (Haldol) 5 mg Q6H PRN IM Agitation 10/26/18 14:30 11/25/18 14:29 Insulin Aspart (NovoLOG) EVERY 6 HOURS SUBQ 10/25/18 18:00 11/11/18 06:29 10/26/18 11:28 Meropenem 1 gm/ Sodium Chloride 55 ml @ 110 mls/hr Q12H IVPB 10/26/18 03:00 10/28/18 14:59 10/26/18 14:17 Pantoprazole (Protonix) 40 mg DAILY IVP 10/26/18 09:00 11/13/18 08:59 10/26/18 08:07 Penicillin G Potassium 4 mu/ Sodium Chloride 55 ml @ 110 mls/hr Q4H IVPB 10/25/18 20:00 11/02/18 19:59 10/26/18 12:22 Sitagliptin Phosphate (Januvia) 100 mg ACBREAKFAST GT 10/26/18 06:30 11/11/18 06:29 10/26/18 06:11 Porfirio Valentine M.D. Oct 26, 2018 15:48
--- NOTE | 2018-10-26 17:07 | Internal Med Progress Note ---
Subjective Date of Service: Oct 26, 2018 Physician Name Dimitrios Daly Attending Physician Tereso Toro MD Current Medications Medications (Trade) Dose Ordered Sig/Christopher Route PRN Reason Start Time Stop Time Status Last Admin Dose Admin Acetaminophen (Tylenol) 650 mg Q4H PRN GT Mild Pain/Temp > 101 10/25/18 16:30 11/11/18 16:29 Chlorhexidine Gluconate (Tatiana-Hex 2%) 1 applic DAILY@2000 TOPIC 10/25/18 20:00 11/12/18 19:59 10/25/18 20:00 Dextrose (Dextrose 50%) 25 ml Q30M PRN IV Hypoglycemia 10/25/18 16:30 11/11/18 04:29 Dextrose (Dextrose 50%) 50 ml Q30M PRN IV Hypoglycemia 10/25/18 16:30 11/24/18 16:29 Haloperidol Lactate (Haldol) 5 mg Q6H PRN IM Agitation 10/26/18 14:30 11/25/18 14:29 Insulin Aspart (NovoLOG) EVERY 6 HOURS SUBQ 10/25/18 18:00 11/11/18 06:29 10/26/18 11:28 Lansoprazole (Prevacid) 30 mg DAILY GT 10/27/18 09:00 11/26/18 08:59 Meropenem 1 gm/ Sodium Chloride 55 ml @ 110 mls/hr Q12H IVPB 10/26/18 03:00 10/28/18 14:59 10/26/18 14:17 Penicillin G Potassium 4 mu/ Sodium Chloride 55 ml @ 110 mls/hr Q4H IVPB 10/25/18 20:00 11/02/18 19:59 10/26/18 16:12 Sitagliptin Phosphate (Januvia) 100 mg ACBREAKFAST GT 10/26/18 06:30 11/11/18 06:29 10/26/18 06:11 Allergies: Coded Allergies: No Known Allergies (Verified , 08/14/06) Subjective 78 YO F admitted with pneumonia. Now sepsis and hypotension. Extubated . Cover for Int Med-Dr Toro. Tolerating nasal canula Objective Last Vital Signs Date Time Temp Pulse Resp B/P (MAP) Pulse Ox O2 Delivery O2 Flow Rate FiO2 10/26/18 16:01 Nasal Cannula 2.0 10/26/18 15:48 98.4 75 18 136/65 (88) 99 10/23/18 18:55 55 Laboratory Tests Test 10/26/18 05:00 White Blood Count 4.5 K/UL (4.8-10.8) L Red Blood Count 3.23 M/UL (4.20-5.40) L Hemoglobin 9.8 G/DL (12.0-16.0) L Hematocrit 29.8 % (37.0-47.0) L Mean Corpuscular Volume 92 FL (80-99) Mean Corpuscular Hemoglobin 30.3 PG (27.0-31.0) Mean Corpuscular Hemoglobin Concent 32.9 G/DL (32.0-36.0) Red Cell Distribution Width 13.8 % (11.6-14.8) Platelet Count 399 K/UL (150-450) Mean Platelet Volume 5.6 FL (6.5-10.1) L Neutrophils (%) (Auto) 48.6 % (45.0-75.0) Lymphocytes (%) (Auto) 34.8 % (20.0-45.0) Monocytes (%) (Auto) 9.1 % (1.0-10.0) Eosinophils (%) (Auto) 6.3 % (0.0-3.0) H Basophils (%) (Auto) 1.2 % (0.0-2.0) Sodium Level 140 MMOL/L (136-145) Potassium Level 5.5 MMOL/L (3.5-5.1) H Chloride Level 105 MMOL/L (98-107) Carbon Dioxide Level 32 MMOL/L (21-32) Anion Gap 3 mmol/L (5-15) L Blood Urea Nitrogen 24 mg/dL (7-18) H Creatinine 0.9 MG/DL (0.55-1.30) Estimat Glomerular Filtration Rate mL/min (>60) Glucose Level 117 MG/DL (74-106) H Calcium Level 9.2 MG/DL (8.5-10.1) Total Bilirubin 0.3 MG/DL (0.2-1.0) Aspartate Amino Transf (AST/SGOT) 24 U/L (15-37) Alanine Aminotransferase (ALT/SGPT) 27 U/L (12-78) Alkaline Phosphatase 82 U/L (46-116) Pro-B-Type Natriuretic Peptide 1495 pg/mL (0-125) H Total Protein 6.3 G/DL (6.4-8.2) L Albumin 1.9 G/DL (3.4-5.0) L Globulin 4.4 g/dL Albumin/Globulin Ratio 0.4 (1.0-2.7) L Intake and Output 10/25/18 10/26/18 19:00 07:00 Intake Total 440 ml Balance 440 ml Intake Free Water 90 ml Tube Feeding 350 ml # Bowel Movements 1 Objective General Appearance: WD/WN, moderate distress, lethargic EENT: PERRL/EOMI, normal ENT inspection Neck: non-tender, normal alignment, supple Cardiovascular: normal peripheral pulses, normal rate, regular rhythm, no gallop/murmur, no JVD Respiratory/Chest: Nasal canula; respiratory distress, crackles/rales, rhonchi - bilaterally, expiratory wheezing Abdomen: normal bowel sounds, non tender, soft, no organomegaly, no mass 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 (4) Sepsis Assessment & Plan: strep viridans and lactobacillus. Cont meropenem and penicillin G per ID (5) Diabetes mellitus type II, uncontrolled (6) HTN (hypertension) (7) Hemiparesis affecting left side as late effect of cerebrovascular accident (8) Healthcare-associated pneumonia Assessment & Plan: Continue penicillin G and Meropenem per ID (9) Hypotension Assessment & Plan: due to sepsis (10) Sepsis (11) Diarrhea Assessment & Plan: C. Diff neg. (12) Elevated troponin Assessment & Plan: See cardiology note. (13) CHF (congestive heart failure) Assessment/Plan Discharge planning: [facility] with hospice eval Discussed with Emily rios via telephone. Dimitrios Daly MD Oct 26, 2018 17:07
--- NOTE | 2018-10-26 19:27 | NUR ---
HAND-OFF: Report given to MS KEVIN RN.
--- NOTE | 2018-10-26 19:51 | NUR ---
NURSE NOTES: Received patient in bed, awake, No acute distress noted, Patient is on G tube tolerating well, Bed is in lowest position and locked, alarm is on, Call light and needs within reach, Will continue to monitor.
[2018-10-26 20:00] VITALS: BP 137/60
[2018-10-26] MEDS: Dyna-Hex 2% Top Sol 2oz TOPIC SCH (20:01)
[2018-10-27] VITALS: BP 125/56
[2018-10-27] MEDS: Penicillin G Potassium 4 MU in NS 55 ML IVPB SCH ×4 (00:05→12:26)
[2018-10-27] MEDS: NovoLOG Insulin Flexpen SUBQ SCH ×3 (00:07→12:00)
[2018-10-27] MEDS: Meropenem 1 GM in NS 55 ML IVPB SCH (02:48)
[2018-10-27 04:00] VITALS: BP 123/58
[2018-10-27 06:38] LABS: BASOPHILS % (AUTO) 1.8 % (0.0-2.0); EOSINOPHILS % (AUTO) 5.9 % (0.0-3.0); HEMATOCRIT 29.1 % (37.0-47.0); HEMOGLOBIN 9.3 G/DL (12.0-16.0); MEAN CORPUSCULAR VOLUME 93 FL (80-99); MONOCYTES % (AUTO) 9.6 % (1.0-10.0); NEUTROPHILS % (AUTO) 48.6 % (45.0-75.0); PLATELET COUNT 368 K/UL (150-450); RED BLOOD COUNT 3.12 M/UL (4.20-5.40); RED CELL DISTRIBUTION WIDTH 13.8 % (11.6-14.8); WHITE BLOOD COUNT 4.3 K/UL (4.8-10.8)
[2018-10-27 06:55] LABS: ANION GAP 4 mmol/L (5-15); BLOOD UREA NITROGEN 25 mg/dL (7-18); CALCIUM 9.4 MG/DL (8.5-10.1); CARBON DIOXIDE 32 MMOL/L (21-32); CHLORIDE 107 MMOL/L (98-107); CREATININE 0.8 MG/DL (0.55-1.30); POTASSIUM 5.1 MMOL/L (3.5-5.1); SODIUM 142 MMOL/L (136-145)
--- NOTE | 2018-10-27 07:29 | NUR ---
HAND-OFF: Report given to Aurea HAMLIN.
--- NOTE | 2018-10-27 07:35 | NUR ---
NURSE NOTES: Patient awake,. Did not respond to name being called. HOB elevated at this time. Per report of outgoing nurse . gtube needs to be replaced. States that gtube is soft to touch. Current paln of care will be followed
[2018-10-27 08:00] VITALS: BP 116/53
--- NOTE | 2018-10-27 09:57 | NUR ---
RD ASSESSMENT & RECOMMENDATIONS SEE CARE ACTIVITY FOR COMPLETE ASSESSMENT DAILY ESTIMATED NEEDS: Needs based on DM, Pulmonary, cardiac/ 55.5kg 25-30 kcals/kg 0984-3125 total kcals 1-1.5 g protein/kg 56-83 g total protein 22-25 mL/kg 2980-1107 total fluid mLs NUTRITION DIAGNOSIS: 1) Swallowing difficulty R/T dysphagia as evidenced by pt on GT feeding, s/p extubation. CURRENT TF:Glucerna 1.5 @ 35ml/hr x 24 hrs ENTERAL NUTRITION RECOMMENDATIONS: TF CHANGE -> Nepro @ 35ml/hr x 24 hrs to provide 840ml, 1512kcal, 68g prot, 610ml free water - REC TF CHANGE TO NEPRO FOR HYPERKALEMIA - Initiate Nepro @ 20ml/hr x 6hrs, advance 10ml q 4-6 hrs as tolerated to goal rate - HOB over 30 degrees/ water flush per MD. - Provides total of 890mg K/day (1226mg less K/day than current TF) ADDITIONAL RECOMMENDATIONS: * Add JO-ANN BID for skin integrity (w/ healed sacral wound) * RE-calibrate bed scale for accurate CBW -> huge discrepency in daily wts * Monitor K- consistently elev K, REC TF CHANGE ABOVE . . .
--- NOTE | 2018-10-27 10:19 | NUR ---
CHARGE NURSE NOTE: Spoke with Emily (pt's niece). She wants to discharge patient home with Home Health agency. Pt already has an agency ([facility]). notified, order received.
--- NOTE | 2018-10-27 11:08 | NUR ---
NURSE NOTES: Dietary made a recommendation to change feeding to Nephro due to pt high potassium level. Awaiting Dr Toro return call
[2018-10-27 12:00] VITALS: BP 127/57
--- NOTE | 2018-10-27 12:01 | NUR ---
*-* DISCHARGE PLANNING PATIENT HAS BEEN REFERRED TO: [facility] P:[phone] F:[phone]
--- NOTE | 2018-10-27 12:05 | Internal Med Progress Note ---
Subjective Date of Service: Oct 27, 2018 Physician Name Dimitrios Daly Attending Physician Tereso Toro MD Current Medications Medications (Trade) Dose Ordered Sig/Christopher Route PRN Reason Start Time Stop Time Status Last Admin Dose Admin Acetaminophen (Tylenol) 650 mg Q4H PRN GT Mild Pain/Temp > 101 10/25/18 16:30 11/11/18 16:29 Chlorhexidine Gluconate (Tatiana-Hex 2%) 1 applic DAILY@2000 TOPIC 10/25/18 20:00 11/12/18 19:59 10/26/18 20:01 Dextrose (Dextrose 50%) 25 ml Q30M PRN IV Hypoglycemia 10/25/18 16:30 11/11/18 04:29 Dextrose (Dextrose 50%) 50 ml Q30M PRN IV Hypoglycemia 10/25/18 16:30 11/24/18 16:29 Haloperidol Lactate (Haldol) 5 mg Q6H PRN IM Agitation 10/26/18 14:30 11/25/18 14:29 Insulin Aspart (NovoLOG) EVERY 6 HOURS SUBQ 10/25/18 18:00 11/11/18 06:29 10/27/18 06:00 Lansoprazole (Prevacid) 30 mg DAILY GT 10/27/18 09:00 11/26/18 08:59 10/27/18 08:45 Meropenem 1 gm/ Sodium Chloride 55 ml @ 110 mls/hr Q12H IVPB 10/26/18 03:00 10/28/18 14:59 10/27/18 02:48 Penicillin G Potassium 4 mu/ Sodium Chloride 55 ml @ 110 mls/hr Q4H IVPB 10/25/18 20:00 11/02/18 19:59 10/27/18 08:46 Sitagliptin Phosphate (Januvia) 100 mg ACBREAKFAST GT 10/26/18 06:30 11/11/18 06:29 10/27/18 06:00 Allergies: Coded Allergies: No Known Allergies (Verified , 08/14/06) ROS Limited/Unobtainable: Yes Subjective 78 YO F admitted with pneumonia. Now sepsis and hypotension. Extubated . Cover for Int [place]-Dr Toro. Tolerating nasal canula Objective Last Vital Signs Date Time Temp Pulse Resp B/P (MAP) Pulse Ox O2 Delivery O2 Flow Rate FiO2 10/27/18 09:00 Nasal Cannula 2.0 10/27/18 08:52 99 28 10/27/18 08:00 97.6 60 20 116/53 (74) Laboratory Tests Test 10/27/18 05:30 White Blood Count 4.3 K/UL (4.8-10.8) L Red Blood Count 3.12 M/UL (4.20-5.40) L Hemoglobin 9.3 G/DL (12.0-16.0) L Hematocrit 29.1 % (37.0-47.0) L Mean Corpuscular Volume 93 FL (80-99) Mean Corpuscular Hemoglobin 29.8 PG (27.0-31.0) Mean Corpuscular Hemoglobin Concent 31.9 G/DL (32.0-36.0) L Red Cell Distribution Width 13.8 % (11.6-14.8) Platelet Count 368 K/UL (150-450) Mean Platelet Volume 5.5 FL (6.5-10.1) L Neutrophils (%) (Auto) 48.6 % (45.0-75.0) Lymphocytes (%) (Auto) 34.0 % (20.0-45.0) Monocytes (%) (Auto) 9.6 % (1.0-10.0) Eosinophils (%) (Auto) 5.9 % (0.0-3.0) H Basophils (%) (Auto) 1.8 % (0.0-2.0) Sodium Level 142 MMOL/L (136-145) Potassium Level 5.1 MMOL/L (3.5-5.1) Chloride Level 107 MMOL/L (98-107) Carbon Dioxide Level 32 MMOL/L (21-32) Anion Gap 4 mmol/L (5-15) L Blood Urea Nitrogen 25 mg/dL (7-18) H Creatinine 0.8 MG/DL (0.55-1.30) Estimat Glomerular Filtration Rate mL/min (>60) Glucose Level 116 MG/DL (74-106) H Calcium Level 9.4 MG/DL (8.5-10.1) Intake and Output 10/26/18 10/27/18 19:00 07:00 Intake Total 735 ml 820 ml Output Total 500 ml Balance 235 ml 820 ml Free Water 150 ml 180 ml IV Total 165 ml 220 ml Tube Feeding 420 ml 420 ml Output Urine Total 500 ml Objective General Appearance: WD/WN, moderate distress, lethargic EENT: PERRL/EOMI, normal ENT inspection Neck: non-tender, normal alignment, supple Cardiovascular: normal peripheral pulses, normal rate, regular rhythm, no gallop/murmur, no JVD Respiratory/Chest: Nasal canula; respiratory distress, crackles/rales, rhonchi - bilaterally, expiratory wheezing Abdomen: normal bowel sounds, non tender, soft, no organomegaly, no mass 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 (4) Sepsis Assessment & Plan: strep viridans and lactobacillus. Cont meropenem and penicillin G per ID (5) Diabetes mellitus type II, uncontrolled (6) HTN (hypertension) (7) Hemiparesis affecting left side as late effect of cerebrovascular accident (8) Healthcare-associated pneumonia Assessment & Plan: Continue penicillin G and Meropenem per ID (9) Hypotension Assessment & Plan: due to sepsis (10) Sepsis (11) Diarrhea Assessment & Plan: C. Diff neg. (12) Elevated troponin Assessment & Plan: See cardiology note. (13) CHF (congestive heart failure) Assessment/Plan Discharge planning: Home health with hospice eval Discussed with Emily rios via telephone. Dimitrios Daly MD Oct 27, 2018 12:05
--- NOTE | 2018-10-27 14:30 | NUR ---
NURSE NOTES: Patient discharged home with , home health services. Nephro feeding provide per request. Dr Toro aproved change of feeding type, per dietary recommendations. Pt in stable condition. Pictures taken and uploaded. Patient teaching provided to family.
[2018-10-27] MEDS ORDERED: PENICILLIN V P250 MG PO (14:56)
--- NOTE | 2018-10-27 15:38 | Infectious Diseases Prog Note ---
Assessment/Plan Problems: (1) Aspiration pneumonia Assessment & Plan: due to pseudomonas aeruginosa and proteus mirabilis , continue meropenem for two weeks total with aspiration precaution , keep HOB > 30 degree .monitor CXR. EOT 10/28/18 (2) Sepsis Assessment & Plan: with strep viridans and lactobacillus spp suspect GI source most likely malignancy , continue penicillin G for two weeks starting from the clearance date . recommend colonoscopy in the future to rule colon CA . repeated blood culture is negative so far which confirm clearance. 11/02/18 . D/ W niece in length at the bed side . she is going to be on hospice care at home, may switch to oral penicillin to finish her course for 6 more days (3) Acute respiratory failure Assessment & Plan: due to the above , improving, extubated on ventimask , monitor CXR and ABG. pulmonary is following (4) Diabetes mellitus type II, uncontrolled Assessment & Plan: recommend tight glycemic control to keep blood glucose between 100-140 (5) JEFFY (acute kidney injury) Assessment & Plan: improved, due to hypotension and sepsis, encourage hydration. Subjective Constitutional: Reports: no symptoms HEENT: Reports: no symptoms Respiratory: Reports: no symptoms Breasts: Reports: no symptoms Cardiovascular: Reports: no symptoms Gastrointestinal/Abdominal: Reports: no symptoms Genitourinary: Reports: no symptoms Neurologic: Reports: no symptoms Psychiatric: Reports: no symptoms Skin: Reports: no symptoms Endocrine: Reports: no symptoms Hematologic: Reports: no symptoms Musculoskeletal: Reports: no symptoms Allergies: Coded Allergies: No Known Allergies (Verified , 08/14/06) Subjective she was awake, on NASAL CANULA for oxygen , no fever. no diarrhea , no vomiting Objective Vital Signs Last 24 Hour Vital Signs Date Time Temp Pulse Resp B/P (MAP) Pulse Ox O2 Delivery O2 Flow Rate FiO2 10/27/18 12:00 97.6 65 20 127/57 (80) 98 10/27/18 09:00 Nasal Cannula 2.0 10/27/18 08:52 99 Nasal Cannula 2.0 28 10/27/18 08:52 Nasal Cannula 2.0 28 10/27/18 08:00 97.6 60 20 116/53 (74) 10/27/18 04:00 97.4 67 20 123/58 (79) 100 10/27/18 00:00 98.1 71 18 125/56 (79) 95 10/26/18 22:58 Nasal Cannula 2.0 28 10/26/18 22:57 98 Nasal Cannula 2.0 28 10/26/18 21:00 Nasal Cannula 2.0 10/26/18 20:00 98.3 68 18 137/60 (85) 98 10/26/18 16:01 Nasal Cannula 2.0 10/26/18 15:48 98.4 75 18 136/65 (88) 99 Height (Feet): 5 Height (Inches): 4.00 Weight (Pounds): 120 General Appearance: WD/WN, no acute distress HEENT: normocephalic, atraumatic, anicteric, mucous membranes moist, PERRL, pharynx normal, supple, no JVD Respiratory/Chest: chest wall non-tender, lungs clear, normal breath sounds, no respiratory distress, no accessory muscle use Cardiovascular: normal peripheral pulses, normal rate, regular rhythm, no gallop/murmur, no JVD Abdomen: normal bowel sounds, soft, non tender, no organomegaly, non distended , no mass, no scars Genitourinary: normal external genitalia Extremities: no cyanosis, no clubbing Skin: no rash, no lesions, ulcers Neurologic/Psychiatric: alert, responsive Lymphatic: no neck adenopathy, no groin adenopathy Musculoskeletal: normal muscle bulk Laboratory Tests Test 10/27/18 05:30 White Blood Count 4.3 K/UL (4.8-10.8) L Red Blood Count 3.12 M/UL (4.20-5.40) L Hemoglobin 9.3 G/DL (12.0-16.0) L Hematocrit 29.1 % (37.0-47.0) L Mean Corpuscular Volume 93 FL (80-99) Mean Corpuscular Hemoglobin 29.8 PG (27.0-31.0) Mean Corpuscular Hemoglobin Concent 31.9 G/DL (32.0-36.0) L Red Cell Distribution Width 13.8 % (11.6-14.8) Platelet Count 368 K/UL (150-450) Mean Platelet Volume 5.5 FL (6.5-10.1) L Neutrophils (%) (Auto) 48.6 % (45.0-75.0) Lymphocytes (%) (Auto) 34.0 % (20.0-45.0) Monocytes (%) (Auto) 9.6 % (1.0-10.0) Eosinophils (%) (Auto) 5.9 % (0.0-3.0) H Basophils (%) (Auto) 1.8 % (0.0-2.0) Sodium Level 142 MMOL/L (136-145) Potassium Level 5.1 MMOL/L (3.5-5.1) Chloride Level 107 MMOL/L (98-107) Carbon Dioxide Level 32 MMOL/L (21-32) Anion Gap 4 mmol/L (5-15) L Blood Urea Nitrogen 25 mg/dL (7-18) H Creatinine 0.8 MG/DL (0.55-1.30) Estimat Glomerular Filtration Rate mL/min (>60) Glucose Level 116 MG/DL (74-106) H Calcium Level 9.4 MG/DL (8.5-10.1) Current Medications Medications (Trade) Dose Ordered Sig/Christopher Route PRN Reason Start Time Stop Time Status Last Admin Dose Admin Acetaminophen (Tylenol) 650 mg Q4H PRN GT Mild Pain/Temp > 101 10/25/18 16:30 11/11/18 16:29 Chlorhexidine Gluconate (Tatiana-Hex 2%) 1 applic DAILY@2000 TOPIC 10/25/18 20:00 11/12/18 19:59 10/26/18 20:01 Dextrose (Dextrose 50%) 25 ml Q30M PRN IV Hypoglycemia 10/25/18 16:30 11/11/18 04:29 Dextrose (Dextrose 50%) 50 ml Q30M PRN IV Hypoglycemia 10/25/18 16:30 11/24/18 16:29 Haloperidol Lactate (Haldol) 5 mg Q6H PRN IM Agitation 10/26/18 14:30 11/25/18 14:29 Insulin Aspart (NovoLOG) EVERY 6 HOURS SUBQ 10/25/18 18:00 11/11/18 06:29 10/27/18 12:00 Lansoprazole (Prevacid) 30 mg DAILY GT 10/27/18 09:00 11/26/18 08:59 10/27/18 08:45 Meropenem 1 gm/ Sodium Chloride 55 ml @ 110 mls/hr Q12H IVPB 10/26/18 03:00 10/28/18 14:59 10/27/18 02:48 Penicillin G Potassium 4 mu/ Sodium Chloride 55 ml @ 110 mls/hr Q4H IVPB 10/25/18 20:00 11/02/18 19:59 10/27/18 12:26 Sitagliptin Phosphate (Januvia) 100 mg ACBREAKFAST GT 10/26/18 06:30 11/11/18 06:29 10/27/18 06:00 Porfirio Valentine M.D. Oct 27, 2018 15:38
--- NOTE | 2018-10-27 21:23 | General Progress Note ---
Assessment/Plan Problem List: (1) Toxic encephalopathy ICD Codes: G92 - Toxic encephalopathy SNOMED: 22606150 Assessment/Plan Haldol 5mg Im q6hr prn/agitation dw RN Subjective Allergies: Coded Allergies: No Known Allergies (Verified , 08/14/06) Subjective the pt is lethargic the pt has waxing and waning of consciousness. The pt is unable to answer the questions. Objective Last 24 Hour Vital Signs Date Time Temp Pulse Resp B/P (MAP) Pulse Ox O2 Delivery O2 Flow Rate FiO2 10/27/18 12:00 97.6 65 20 127/57 (80) 98 10/27/18 09:00 Nasal Cannula 2.0 10/27/18 08:52 99 Nasal Cannula 2.0 28 10/27/18 08:52 Nasal Cannula 2.0 28 10/27/18 08:00 97.6 60 20 116/53 (74) 10/27/18 04:00 97.4 67 20 123/58 (79) 100 10/27/18 00:00 98.1 71 18 125/56 (79) 95 10/26/18 22:58 Nasal Cannula 2.0 28 10/26/18 22:57 98 Nasal Cannula 2.0 28 Intake and Output 10/26/18 10/27/18 19:00 07:00 Intake Total 735 ml 820 ml Output Total 500 ml Balance 235 ml 820 ml Free Water 150 ml 180 ml IV Total 165 ml 220 ml Tube Feeding 420 ml 420 ml Output Urine Total 500 ml Laboratory Tests 10/27/18 05:30: White Blood Count 4.3L, Red Blood Count 3.12L, Hemoglobin 9.3L, Hematocrit 29.1L , Mean Corpuscular Volume 93, Mean Corpuscular Hemoglobin 29.8, Mean Corpuscular Hemoglobin Concent 31.9L, Red Cell Distribution Width 13.8, Platelet Count 368, Mean Platelet Volume 5.5L, Neutrophils (%) (Auto) 48.6, Lymphocytes (%) (Auto) 34.0, Monocytes (%) (Auto) 9.6, Eosinophils (%) (Auto) 5.9H, Basophils (%) (Auto) 1.8, Sodium Level 142, Potassium Level 5.1, Chloride Level 107, Carbon Dioxide Level 32, Anion Gap 4L, Blood Urea Nitrogen 25H, Creatinine 0.8, Estimat Glomerular Filtration Rate , Glucose Level 116H, Calcium Level 9.4 Height (Feet): 5 Height (Inches): 4.00 Weight (Pounds): 120 General Appearance: lethargic, confused Trever Easley MD Oct 27, 2018 21:23
--- NOTE | 2018-10-28 17:15 | Discharge Summary ---
Discharge Summary Discharge Summary _ DATE OF ADMISSION: 10/11/2018 DATE OF DISCHARGE: 10/27/2018 ADMITTING MD: Dr. Tereso Toro DISCHARGED BY: Dr. Dimitrios Daly CONSULTANTS: Dr. Barbara Humphrey [facility] COURSE: Patient is a 78-year-old Panamanian speaking female, who presented with chief complaint of shortness of breath. The patient is a resident of [facility] acute [facility]term [facility]. According to the staff at the facility, the patient began to have shortness of breath on October 11, 2018. She had decreased oxygen saturations. She was then transported to [facility] for further evaluation. She has medical history significant for hypertension, type 2 diabetes, cerebrovascular disease with left hemiparesis. On evaluation at ED, patient was febrile, temperature was 101.8. Blood work showed elevated BUN and creatinine. EKG showed sinus tachycardia. Chest x-ray showed right lung infiltrate. Patient was hypoxic and required BiPAP. She was started on IV antibiotics and was admitted for sepsis and pneumonia. Infectious disease specialist was consulted. She was started on IV vancomycin and Zosyn empirically pending culture results. Kidney function was elevated. She was given IV hydration. She was given nebulizer treatment. Influenza screen was negative. On 10/13/2017, patient had increased respiratory distress and low oxygenation. Patient was transferred to ICU. Patient was lethargic with increased work of breathing. She was initially placed on nonrebreather mask, however, eventually got orally intubated. She was placed on vent support. She was eventually started on IV pressors. PICC line was inserted. Scrap Metal Collector was consulted. Patient was noted to have tachycardia. Patient on telemetry strip was consistent with artifactual abnormalities, may be related to Parkinson's tremor/artifact due to shaking , or cough. Cardiac enzymes were monitored and was negative. Echocardiogram done showed ejection fraction 55-60 % with right ventricular systolic pressure of 43 consistent with mild pulmonary hypertension. She had waxing and waning of consciousness. She was given Haldol as needed. She continued to have significant secretions and fever. Zosyn was switched to meropenem. Sputum culture showed growth of Pseudomonas and Proteus. Blood culture with growth of Streptococcus viridans and lactobacillus, suspect GI source, most likely malignancy. She was given penicillin G for 2 weeks. Blood culture was repeated to check for clearance. She had diarrhea, however stool culture and C. difficile were negative. She was eventually taken off IV pressors. She was weaned off the ventilator on 10/22/2018. She was continued on O2 support. She was placed on strict aspiration precautions. Repeat blood culture was negative. She was tolerating nasal cannula. Care was discussed with patient's niece. Patient was then discharged home with home health. To continue oral penicillin to finish the course for 6 more days. FINAL DIAGNOSES: Sepsis due to aspiration pneumonia Aspiration pneumonia due to Pseudomonas and Proteus Sepsis with strep viridans and lactobacillus species, suspect GI source, most likely malignancy Acute respiratory failure requiring intubation status post extubation Diabetes type 2, uncontrolled Acute kidney injury Old CVA with left hemiparesis Hypertension Hypotension due to sepsis Diarrhea Feeding via G-tube Acute toxic encephalopathy Tachycardia due to artifact DISPOSITION: DC home with home health. For hospice eval. DISCHARGE MEDICATIONS: Refer to Discharge Medication List. DISCHARGE INSTRUCTIONS: Follow-up in a week. I have been assigned to dictate discharge summary on this account, and I was not involved in the patient's management. Smitha Olea NP Oct 28, 2018 17:15
== END 2018-10-27 14:50 | disposition home health service (06) | DRG 870 ==
LOC: EDBD 19:03 → EDBEDREQ 19:15 → EMR 19:33 → 2W 19:37 → EDBEDREQSVC 22:26 → EDBEDREQ 22:27 → 2W 23:39 → ICU 10-12 23:00 → 2W 10-23 19:05 → 4E 10-25 16:00
PROC: B548ZZA Ultrasonography of Superior Vena Cava, Guidance (ICD-10-PCS; principal; 2018-10-13)
PROC: 02HV33Z Insertion of Infusion Device into Superior Vena Cava, Percutaneous Approach (ICD-10-PCS; principal; 2018-10-13)
PROC: 5A1955Z Respiratory Ventilation, Greater than 96 Consecutive Hours (ICD-10-PCS; principal; 2018-10-13)
PROC: 0BH17EZ Insertion of Endotracheal Airway into Trachea, Via Natural or Artificial Opening (ICD-10-PCS; principal; 2018-10-13)
DX: A41.9 Sepsis, unspecified organism (principal); J69.0 Pneumonitis due to inhalation of food and vomit; G92 Toxic encephalopathy; J96.21 Acute and chronic respiratory failure with hypoxia; N17.9 Acute kidney failure, unspecified; I69.954 Hemiplegia and hemiparesis following unspecified cerebrovascular disease affecting left non-dominant side; J44.9 Chronic obstructive pulmonary disease, unspecified; E11.65 Type 2 diabetes mellitus with hyperglycemia; I11.0 Hypertensive heart disease with heart failure; I50.9 Heart failure, unspecified; R13.10 Dysphagia, unspecified; Z93.1 Gastrostomy status; G20 Parkinson's disease; F02.80 Dementia in other diseases classified elsewhere, unspecified severity, without behavioral disturbance, psychotic disturbance, mood disturbance, and anxiety; D69.6 Thrombocytopenia, unspecified
CPT/HCPCS: 36415; 36569; 36600; 51702; 71045; 76937; 80048; 80053; 80202; 81003; 82270; 82378; 82550; 82553; 82607; 82746; 82803; 82962; 83540; 83550; 83605; 83615; 83735; 83880; 84100; 84484; 85007; 85025; 85044; 85060; 85610; 85651; 85730; 86710; 86850; 86900; 86901; 86920; 87040; 87045; 87070; 87081; 87181; 87205; 87324; 93005; 93306; 93970; 94002; 94003; 94640; 94664; 94760; 96361; 96365; 99291; J2370; J3490